=== PATIENT | male | born 1950 | race Caucasian/White ===

== ENCOUNTER 2018-05-29 09:43 | Inpatient (IN) | payer OTHER ==
[2018-05-29 10:10] VITALS: BMI 24.0
--- NOTE | 2018-05-29 10:17 | PDOC ---
History of Present Illness - General Chief Complaint: Shortness of Breath Stated Complaint: DIFF. BREATHING Time Seen by Provider: 05/29/18 09:47 History Source: Patient, EMS Exam Limitations: No Limitations - History of Present Illness Initial Comments: 05/29/18 10:03 The patient is a 67M with a PMH of anemia of unknown cause, DM, HTN, and COPD who presented to the ER with shortness of breath. The patient states that he began to feel short of breath 2 days ago and it has worsened. He states that he woke up in the middle of the night and felt acutely short of breath and called EMS. During this episode, he states that he also had retrosternal CP which radiates to his back, and is no longer present. He admits to some nausea but denies vomiting, fevers, chills, numbness, tingling, or weakness. Past History - Past Medical History Allergies/Adverse Reactions: Allergies Allergy/AdvReac Type Severity Reaction Status Date / Time No Known Allergies Allergy Verified 05/29/18 10:03 Home Medications: Ambulatory Orders Aspirin 81 mg PO DAILY 05/29/18 Atorvastatin Ca [Lipitor] 40 mg PO HS 05/29/18 Budesonide/Formeterol Fumarate [SYMBICORT 80/4.5mcg -] 2 inh PO BID 05/29/18 Cyanocobalamin (Vitamin B-12) [Vitamin B-12] 1,000 mcg PO DAILY 05/29/18 Epoetin Blue [Epogen] 20,000 unit IJ WEEKLY 05/29/18 Escitalopram Oxalate [Lexapro -] 10 mg PO HS 05/29/18 Folic Acid 1 mg PO DAILY 05/29/18 Gabapentin 100 mg PO TID 05/29/18 Guaifenesin [Mucinex] 600 mg PO BID 05/29/18 Levothyroxine [Synthroid -] 25 mcg PO DAILY 05/29/18 Linagliptin [Tradjenta] 5 mg PO DAILY 05/29/18 Metoprolol Succinate 100 mg PO DAILY 05/29/18 Multivitamins [Tab-A-Vit -] 1 tab PO DAILY 05/29/18 Polyethylene Glycol 3350 [Miralax (For Daily Use) -] 17 gm PO DAILY 05/29/18 Sennosides [Senna] 8.6 mg PO HS 09/09/18 Tramadol HCl 50 mg PO TID PRN 05/29/18 COPD: Yes Diabetes: Yes (TYPE II) HTN: Yes Psychiatric Problems: Yes (DEPRESSIVE DISORDER) Thyroid Disease: Yes (HYPO) Other medical history: HYPOCALCEMIA, SCOLIOSIS - Suicide/Smoking/Psychosocial Hx Smoking History: Current every day smoker Have you smoked in the past 12 months: Yes Number of Cigarettes Smoked Daily: 8 Information on smoking cessation initiated: Yes 'Breaking Loose' booklet given: 05/29/18 Hx Alcohol Use: No Drug/Substance Use Hx: No Substance Use Type: None Review of Systems - Review of Systems Able to Perform ROS?: Yes Comments:: 05/29/18 10:17 GENERAL/CONSTITUTIONAL: No fever or chills. No weakness. HEAD, EYES, EARS, NOSE AND THROAT: No change in vision. No ear pain or discharge. No sore throat. CARDIOVASCULAR: Positive for resolved CP. No palpitations or lightheadedness. RESPIRATORY: Positive for shortness of breath. No cough, wheezing, or hemoptysis. GASTROINTESTINAL: Positive for nausea. No vomiting, diarrhea, constipation, or abdominal pain. GENITOURINARY: No dysuria, frequency, hematuria, or change in urination. MUSCULOSKELETAL: No joint or muscle swelling or pain. No neck or back pain. SKIN: No rash or lesions. NEUROLOGIC: No headache, numbness, tingling, focal weakness, loss of consciousness, or change in strength/sensation. ENDOCRINE: No increased thirst. No abnormal weight change. HEMATOLOGIC/LYMPHATIC: Positive for anemia. No easy bleeding or history of blood clots. ALLERGIC/IMMUNOLOGIC: No hives or skin allergy. Is the patient limited Occitan proficient: No *Physical Exam - Vital Signs Last Vital Signs Temp Pulse Resp BP Pulse Ox 98.4 F 69 26 H 120/56 98 05/29/18 09:57 05/29/18 09:57 05/29/18 09:57 05/29/18 09:57 05/29/18 09:57 - Physical Exam Comments: 05/29/18 10:20 GENERAL: Well developed, well nourished. Awake and alert. No acute distress. HEENT: Normocephalic, atraumatic. Hearing grossly normal. Moist mucous membranes. PERRLA, EOMI. No conjunctival pallor. Sclera are non-icteric. NECK: Supple. Full ROM. No JVD. CARDIOVASCULAR: Regular rate and rhythm. No murmurs, rubs, or gallops. PULMONARY: No evidence of respiratory distress. RLL crackles. ABDOMINAL: Soft. Non-tender. Non-distended. No rebound or guarding. No organomegaly. Normoactive bowel sounds. GENITOURINARY: No CVA tenderness bilaterally. MUSCULOSKELETAL: Normal range of motion at all joints. No bony deformities or tenderness. EXTREMITIES: No cyanosis. No clubbing. No edema. No calf tenderness or swelling. SKIN: Warm and dry. Normal capillary refill. No rashes. No jaundice. NEUROLOGICAL: Alert, awake, appropriate. Cranial nerves 2-12 grossly intact. Normal speech. Gait is normal without ataxia. PSYCHIATRIC: Cooperative. Good eye contact. Appropriate mood and affect. Heart Score/ECG Review #1 ECG reviewed & interpreted by me at: 10:24 General ECG Interpretation: Sinus Rhythm, Normal Rate, Normal Intervals, No acute ischemic changes Compared to previous ECG there are: Previous ECG unavail 05/29/18 10:24 NSR vent rate 65 TX 214 QRS 138 QTc 481 RBBB Prolonged QT 1st degree AV block No STD or SELENE No priors ED Treatment Course - LABORATORY CBC & Chemistry Diagram: 05/29/18 10:40 05/29/18 10:40 - RADIOLOGY Radiology Studies Ordered: Category Date Time Status CHEST X-RAY PORTABLE* [RAD] Stat Radiology 05/29/18 09:51 Ordered Medical Decision Making - Medical Decision Making 05/29/18 10:27 The patient is a 67M with a PMH of anemia, HTN, DM, and COPD whopresents to the ER with complaints of SOB. The patient had an episode of CP with his SOB last night as he was laying in bed concerning for ACS vs COPD exacerbation vs PNA vs symptomatic anemia. The patient states that he normally goes to [facility] once a week for a "shot that brings up my blood cells". Pending labs. Preliminary read of CXR shows RLL PNA. Once cultures are drawn, will begin abx. Pt d/c-ed from rehab 10 days ago, so will cover for HCAP. 05/29/18 11:09 Hgb 6.9. Will transfuse 2 units and give broad spectrum abx. 05/29/18 12:35 I have endorsed the pt to Dr. Gupta. *DC/Admit/Observation/Transfer Diagnosis at time of Disposition: Pneumonia Qualifiers: Pneumonia type: due to unspecified organism Laterality: right Lung location: lower lobe of lung Qualified Code(s): J18.1 - Lobar pneumonia, unspecified organism Anemia Qualifiers: Anemia type: unspecified type Qualified Code(s): D64.9 - Anemia, unspecified - Discharge Dispostion Condition at time of disposition: Guarded Decision to Admit order: Yes - Referrals Referrals: Wendy Scott MD, MD [Primary Care Provider] - - Patient Instructions - Post Discharge Activity
[2018-05-29] MEDS ORDERED: ALBUTEROL SO4 2.5/IPRATROPIUM 0.5 INH SOL 3 ML VIAL.NEB. NEB ONE ×3 (10:32→10:35)
[2018-05-29] MEDS ORDERED: ONDANSETRON 4 MG/2 ML VIAL ONE (10:35)
--- NOTE | 2018-05-29 10:39 | PDOC ---
Attending Attestation - Resident Resident Name: Seth Farrar - ED Attending Attestation I have performed the following: I have examined & evaluated the patient, The case was reviewed & discussed with the resident, I agree w/resident's findings & plan, Exceptions are as noted - HPI HPI: 05/29/18 10:36 67yo male with SOB from the assisted living. Pt arrives wearing O2, does not wear O2 regularly, hx of COPD - Physicial Exam PE: 05/29/18 10:38 Gen: awake, mild resp distress, conversational dyspnea, pulse ox 84on RA Heart: +s1s2 reg Lungs: rhonchi at R base and end expiratory wheezing diffusely, mild resp distress and conversational dyspnea, tachypnic abd: soft, ntnd +bs ext: no c/c/e - Medical Decision Making 05/29/18 10:34 I, Dr. Emi Rene, DO, attest that this document has been prepared under my direction and personally reviewed by me in its entirety. I further attest, that it accurately reflects all work, treatment, procedures and medical decision -making performed by me. 05/29/18 10:34 a/p: 67yo male presents from [facility] for eval of SOB and cough -pt at [facility] for rehab after being in [facility] for anemia requiring multiple transfusions -hx of copd, pt with low O2 sat -concern for symptomatic anemia vs copd exacerbation vs pna vs acs -will send labs, cultures, vbg, ekg, cxr -will give nebs -will need rectal exam -will monitor and reassess - pt will most likely require admission for SOB 05/29/18 10:35 R base PNA - cultures pending will give abx 05/29/18 10:40 infiltrate R base on xray 05/29/18 11:10 pt pmd is Wendy Scott admits to Toño Scott who is covered by Dr. Gupta pt with PNA, COPD exacerbation, symptomatic anemia abx and cultures ordered nebs given will transfuse 2 units pRBC 05/29/18 13:03 resident discussed the case with Dr. Gupta who accepts pt to service Heart Score/ECG Review - ECG Intrepretation Comment:: 05/29/18 10:41 sinus at 67 w a 1st degree av block, downsloping st segment inferolateral, L axis deviation, RBBB, abnl ekg
[2018-05-29] MEDS ORDERED: PIPERACILLIN/TAZOB 4.5 GM 4.5 GM in DEXTROSE 5%-WATER 100 ML IVPB ONE (10:40)
[2018-05-29] MEDS ORDERED: VANCOMYCIN 1,000 MG in DEXTROSE 5%-WATER - 250 ML IVPB ONE (10:40)
[2018-05-29 10:52] LABS: BASO % 0.9 % (0-2.0); EOS % 0.1 % (0-4.5); HEMATOCRIT 21.1 % (35.4-49); LYMPH % 3.5 % (8-40); MCH 32.6 pg (25.7-33.7); MCHC 32.7 g/dl (32.0-35.9); MEAN CELL VOLUME 99.5 fl (80-96); MEAN PLT VOLUME 10.1 fl (7.5-11.1); MONO % 11.2 % (3.8-10.2); NEUT % 84.3 % (42.8-82.8); PLATELET COUNT 220 K/MM3 (134-434); RBC 2.12 M/mm3 (4.00-5.60); RDW 23.1 % (11.9-15.9)
[2018-05-29 10:57] LABS: VENOUS PC02 41.4 mmHg (38-52); VENOUS PH 7.34 (7.32-7.42)
[2018-05-29] MEDS ORDERED: PIPERACILLIN/TAZOB 4.5 GM 4.5 GM/100 ML BAG IVPB ONE (10:57)
[2018-05-29] MEDS ORDERED: VANCOMYCIN 1 GRAM (PRE-DOCKED) 1,000 MG/250 ML BAG IVPB ONE (10:57)
[2018-05-29 11:04] LABS: HEMOGLOBIN 6.9 GM/dL (11.7-16.9)
[2018-05-29 11:08] LABS: INR 1.08 (0.83-1.09); PROTHROMBIN TIME (PATIENT) 12.2 SEC (9.7-13.0)
[2018-05-29 11:19] LABS: ALBUMIN 2.9 g/dl (3.4-5.0); ANION GAP 11 MMOL/L (8-16); BILIRUBIN,TOTAL 0.7 mg/dL (0.2-1.0); BLOOD UREA NITROGEN 47 mg/dL (7-18); CALCIUM 8.1 mg/dL (8.5-10.1); CHLORIDE 110 mmol/L (98-107); CO2 22 mmol/L (21-32); CREATININE 1.8 mg/dL (0.7-1.3); GLUCOSE,RANDOM 149 mg/dL (74-106); POTASSIUM 4.5 mmol/L (3.5-5.1); SGOT/AST 11 U/L (15-37); SGPT/ALT 20 U/L (12-78); SODIUM 143 mmol/L (136-145); TOT PROT 6.8 g/dl (6.4-8.2)
[2018-05-29 11:22] LABS: ALK PHOS 64 U/L (45-117)
[2018-05-29] MEDS ORDERED: traMADol HCL 50 MG TABLET PO PRN (15:45)
[2018-05-29] MEDS ORDERED: GABAPENTIN 100 MG CAPSULE (FP) ONE (22:19)
[2018-05-29] MEDS ORDERED: ATORVASTATIN CA 40 MG TABLET (FP) ONE (22:19)
[2018-05-29] MEDS: guaiFENesin 600 MG TABLET.ER (FP) PO SCH (22:20)
[2018-05-29] MEDS: ATORVASTATIN CA 40 MG TABLET (FP) PO SCH (22:20)
[2018-05-29] MEDS ORDERED: PANTOPRAZOLE SODIUM 40 MG VIAL ONE (22:20)
[2018-05-29] MEDS: ESCITALOPRAM OXALATE 10 MG TABLET (FP) PO SCH (22:20)
[2018-05-29] MEDS ORDERED: ESCITALOPRAM OXALATE 10 MG TABLET (FP) ONE (22:20)
[2018-05-29] MEDS: GABAPENTIN 100 MG CAPSULE (FP) PO SCH (22:21)
[2018-05-29] MEDS: BUDESONIDE/FORMETEROL FUMARATE 80/4.5 mcg INHALER IH SCH (22:21)
[2018-05-29] MEDS: SENNOSIDES 8.6MG TABLET (FP) PO SCH (22:21)
[2018-05-29] MEDS: PANTOPRAZOLE SODIUM 40 MG VIAL IVPUSH SCH (22:21)
[2018-05-30] MEDS: GABAPENTIN 100 MG CAPSULE (FP) PO SCH ×3 (06:09→21:47)
[2018-05-30] MEDS ORDERED: LEVOTHYROXINE NA 25 MCG TABLET (FP) ONE (06:23)
[2018-05-30] MEDS ORDERED: GABAPENTIN 100 MG CAPSULE (FP) ONE (06:23)
[2018-05-30 06:35] LABS: BASO % 0.3 % (0-2.0); EOS % 0.4 % (0-4.5); HEMOGLOBIN 8.8 GM/dL (11.7-16.9); LYMPH % 4.8 % (8-40); MCH 33.2 pg (25.7-33.7); MCHC 33.9 g/dl (32.0-35.9); MEAN CELL VOLUME 98.1 fl (80-96); MEAN PLT VOLUME 8.9 fl (7.5-11.1); MONO % 13.9 % (3.8-10.2); NEUT % 80.6 % (42.8-82.8); PLATELET COUNT 269 K/MM3 (134-434); RBC 2.65 M/mm3 (4.00-5.60); RDW 20.6 % (11.9-15.9); WHITE BLOOD COUNT 11.5 K/mm3 (4.0-10.0)
[2018-05-30 06:59] LABS: ALBUMIN 2.6 g/dl (3.4-5.0); ANION GAP 7 MMOL/L (8-16); BLOOD UREA NITROGEN 49 mg/dL (7-18); CALCIUM 7.9 mg/dL (8.5-10.1); CHLORIDE 110 mmol/L (98-107); CHOLESTEROL 84 mg/dL (50-200); CO2 25 mmol/L (21-32); GLUCOSE,RANDOM 113 mg/dL (74-106); MAGNESIUM 1.9 mg/dL (1.8-2.4); POTASSIUM 4.4 mmol/L (3.5-5.1); SODIUM 142 mmol/L (136-145)
[2018-05-30] MEDS: LEVOTHYROXINE NA 25 MCG TABLET (FP) PO SCH (07:00)
[2018-05-30 07:07] LABS: ALK PHOS 61 U/L (45-117); BILIRUBIN,TOTAL 1.4 mg/dL (0.2-1.0); CREATININE 2.2 mg/dL (0.7-1.3); HDL CHOLESTEROL 39 mg/dL (40-60); SGOT/AST 13 U/L (15-37); SGPT/ALT 17 U/L (12-78); TOT PROT 6.4 g/dl (6.4-8.2); TRIGLYCERIDES 68 mg/dL (35-160)
[2018-05-30] MEDS: PANTOPRAZOLE SODIUM 40 MG VIAL IVPUSH SCH ×2 (09:10→21:47)
[2018-05-30] MEDS: guaiFENesin 600 MG TABLET.ER (FP) PO SCH ×2 (09:10→21:46)
[2018-05-30] MEDS: FOLIC ACID 1 MG TABLET (FP) PO SCH (09:11)
[2018-05-30] MEDS: POLYETHYLENE GLYCOL 3350 119 GM BTL PO SCH (09:11)
[2018-05-30] MEDS: BUDESONIDE/FORMETEROL FUMARATE 80/4.5 mcg INHALER IH SCH ×2 (09:20→21:47)
--- NOTE | 2018-05-30 10:27 | EKG ---
Test Reason : Blood Pressure : / mmHG Vent. Rate : 073 BPM Atrial Rate : 073 BPM P-R Int : 204 ms QRS Dur : 128 ms QT Int : 434 ms P-R-T Axes : 079 -72 -09 degrees QTc Int : 478 ms NORMAL SINUS RHYTHM LEFT AXIS DEVIATION RIGHT BUNDLE BRANCH BLOCK SEPTAL INFARCT , AGE UNDETERMINED T WAVE ABNORMALITY, CONSIDER LATERAL ISCHEMIA ABNORMAL ECG WHEN COMPARED WITH ECG OF 29-MAY-2018 10:16, T WAVE VARIATION Confirmed by CARLOS LOMBARDO MD ([id number]) on 05/30/2018 10:27:20 AM Referred By: Confirmed By:CARLOS LOMBARDO MD
--- NOTE | 2018-05-30 10:33 | EKG ---
Test Reason : Blood Pressure : / mmHG Vent. Rate : 067 BPM Atrial Rate : 067 BPM P-R Int : 214 ms QRS Dur : 138 ms QT Int : 456 ms P-R-T Axes : 074 -64 025 degrees QTc Int : 481 ms SINUS RHYTHM WITH 1ST DEGREE A-V BLOCK LEFT AXIS DEVIATION RIGHT BUNDLE BRANCH BLOCK ABNORMAL ECG NO PREVIOUS ECGS AVAILABLE Confirmed by CARLOS LOMBARDO MD ([id number]) on 05/30/2018 10:33:25 AM Referred By: Confirmed By:CARLOS LOMBARDO MD
[2018-05-30 11:05] LABS: ANISOCYTOSIS 1+; MACROCYTOSIS 1+
--- NOTE | 2018-05-30 11:07 | CONSULT ---
Consultation: REQUESTING PROVIDER: CONSULT REQUEST: We have been asked to medically evaluate this patient for ( anemia-HEME/ONC CONSULT). HISTORY OF PRESENT ILLNESS: Patient is a 67 year old male was sent from [facility] to the ED with the chief complaint of shortness of breath x 2 days. As per the patient , he started having loss of appetite since 4 days and has been feeling weak/ tired. Then had SOB on exertion associated with production of yellowish sputum but no chest pain, palpitation. Patient reports he had nausea associated with one episode of vomiting which prompted him to come to the ED for further evaluation. Has h/o constipation, on Miralax, last bowel movement was 4 days ago. Bladder habit normal. Sleep normal. Patient used to live independently Patient reports he was at [facility] around 3 months ago for SOB, was discharged to a rehab then discharged to assisted living 10 days ago. At [facility] he had symptomatic anemia for his he received blood transfusion. Has never had EGD or Colonoscopy. 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 REVIEW OF SYSTEMS: CONSTITUTIONAL: Absent: fever, chills, diaphoresis, generalized weakness, malaise, loss of appetite, weight change HEENT: Absent: rhinorrhea, nasal congestion, throat pain, throat swelling, difficulty swallowing, mouth swelling, ear pain, eye pain, visual changes CARDIOVASCULAR: Absent: chest pain, syncope, palpitations, irregular heart rate, lightheadedness , peripheral edema RESPIRATORY: Present: cough, shortness of breath, Absent: dyspnea with exertion, orthopnea, wheezing, stridor, hemoptysis GASTROINTESTINAL: Absent: abdominal pain, abdominal distension, nausea, vomiting, diarrhea, constipation, melena, hematochezia GENITOURINARY: Absent: dysuria, frequency, urgency, hesitancy, hematuria, flank pain, genital pain MUSCULOSKELETAL: Absent: myalgia, arthralgia, joint swelling, back pain, neck pain SKIN: Absent: rash, itching, pallor HEMATOLOGIC/IMMUNOLOGIC: Absent: easy bleeding, easy bruising, lymphadenopathy, frequent infections ENDOCRINE: Absent: unexplained weight gain, unexplained weight loss, heat intolerance, cold intolerance NEUROLOGIC: Absent: headache, focal weakness or paresthesias, dizziness, unsteady gait, seizure, mental status changes, bladder or bowel incontinence PSYCHIATRIC: Absent: anxiety, depression, suicidal or homicidal ideation, hallucinations. PHYSICAL EXAMINATION Vital Signs - 24 hr 05/29/18 05/29/18 05/29/18 13:15 13:59 15:11 Temperature 98.6 F Pulse Rate [ 76 74 Apical] Respiratory 22 22 Rate Blood Pressure 116/61 128/63 [Right Arm] O2 Sat by Pulse 96 98 97 Oximetry (%) 05/29/18 05/29/18 05/29/18 15:25 16:15 18:15 Temperature 98.7 F 98.8 F Pulse Rate [ 73 74 71 Apical] Respiratory 22 24 24 Rate Blood Pressure 133/58 115/59 117/48 [Right Arm] O2 Sat by Pulse 98 98 98 Oximetry (%) 05/29/18 05/29/18 05/29/18 18:45 19:45 20:00 Temperature 99.2 F 99.0 F Pulse Rate [ 69 70 67 Apical] Respiratory 24 24 24 Rate Blood Pressure 105/46 110/59 119/80 [Right Arm] O2 Sat by Pulse 97 98 97 Oximetry (%) 05/30/18 05/30/18 05/30/18 06:00 06:28 09:10 Temperature 98.5 F 98.4 F Pulse Rate [ 65 66 71 Apical] Respiratory 18 19 Rate Blood Pressure 109/56 109/56 138/66 [Right Arm] O2 Sat by Pulse 100 98 Oximetry (%) GENERAL: Elderly male, lying comfortably in bed, Awake, alert, and fully oriented, in no acute distress. HEAD: Normal with no signs of trauma. EYES: EOM intact, pallor +, icterus. EARS, NOSE, THROAT: Ears normal. Moist mucous membranes. NECK: Supple. LUNGS: B/L coarse breath sounds. No wheezes. No accessory muscle use. HEART: Regular rate and rhythm, normal S1 and S2 with soft systolic murmur. ABDOMEN: Soft, nontender, not distended, normoactive bowel sounds, no guarding, no rebound, no masses. No hepatomegaly or splenomegaly. MUSCULOSKELETAL: Normal range of motion at all joints. No bony deformities or tenderness. No CVA tenderness. UPPER EXTREMITIES/RIGHT lower ext: 2+ pulses, warm, well-perfused. No cyanosis. No clubbing. Cap refill <2 seconds. No peripheral edema. LEFT LOWER EXTREMITY:Below knee amputation, stump looks dry and clean. NEUROLOGICAL: No facial droop. Normal speech. Gait not observed. PSYCHIATRIC: Cooperative. Good eye contact. Appropriate mood and affect. SKIN: Warm, dry, normal turgor, no rashes or lesions noted. Laboratory Results - last 24 hr 05/29/18 05/29/18 05/29/18 10:40 10:40 10:40 WBC RBC Hgb Hct MCV MCH MCHC RDW Plt Count MPV Absolute Neuts (auto) Neutrophils % Lymphocytes % Monocytes % Eosinophils % Basophils % Nucleated RBC % Anisocytosis Macrocytosis PT with INR 12.20 INR 1.08 Sodium 143 Potassium 4.5 Chloride 110 H Carbon Dioxide 22 Anion Gap 11 BUN 47 H Creatinine 1.8 H Creat Clearance w eGFR 37.82 Random Glucose 149 H Hemoglobin A1c % Calcium 8.1 L Magnesium Total Bilirubin 0.7 AST 11 L ALT 20 Alkaline Phosphatase 64 Creatine Kinase 34 L Troponin I 0.07 H B-Natriuretic Peptide Total Protein 6.8 Albumin 2.9 L Triglycerides Cholesterol Total LDL Cholesterol HDL Cholesterol Stool Occult Blood Blood Type A POSITIVE Antibody Screen Negative Crossmatch See Detail 05/29/18 05/29/18 05/29/18 10:40 12:25 12:35 WBC RBC Hgb Hct MCV MCH MCHC RDW Plt Count MPV Absolute Neuts (auto) Neutrophils % Lymphocytes % Monocytes % Eosinophils % Basophils % Nucleated RBC % Anisocytosis Macrocytosis PT with INR INR Sodium Potassium Chloride Carbon Dioxide Anion Gap BUN Creatinine Creat Clearance w eGFR Random Glucose Hemoglobin A1c % Calcium Magnesium Total Bilirubin AST ALT Alkaline Phosphatase Creatine Kinase Troponin I B-Natriuretic Peptide 7838.47 H Total Protein Albumin Triglycerides Cholesterol Total LDL Cholesterol HDL Cholesterol Stool Occult Blood Negative Blood Type A POSITIVE Antibody Screen Crossmatch 05/29/18 05/30/18 05/30/18 16:28 05:55 05:55 WBC 11.5 H RBC 2.65 L Hgb 8.8 L Hct 26.0 L D MCV 98.1 H MCH 33.2 MCHC 33.9 RDW 20.6 H Plt Count 269 D MPV 8.9 D Absolute Neuts (auto) 9.3 H Neutrophils % 80.6 Lymphocytes % 4.8 L D Monocytes % 13.9 H Eosinophils % 0.4 D Basophils % 0.3 Nucleated RBC % 0 Anisocytosis 1+ Macrocytosis 1+ PT with INR INR Sodium 142 Potassium 4.4 Chloride 110 H Carbon Dioxide 25 Anion Gap 7 L BUN 49 H Creatinine 2.2 H Creat Clearance w eGFR 30.00 Random Glucose 113 H D Hemoglobin A1c % Calcium 7.9 L Magnesium 1.9 Total Bilirubin 1.4 H AST 13 L ALT 17 Alkaline Phosphatase 61 Creatine Kinase 38 L 30 L Troponin I 0.15 H D 0.17 H B-Natriuretic Peptide Total Protein 6.4 Albumin 2.6 L Triglycerides 68 Cholesterol 84 Total LDL Cholesterol 37 HDL Cholesterol 39 L Stool Occult Blood Blood Type Antibody Screen Crossmatch 05/30/18 05:55 WBC RBC Hgb Hct MCV MCH MCHC RDW Plt Count MPV Absolute Neuts (auto) Neutrophils % Lymphocytes % Monocytes % Eosinophils % Basophils % Nucleated RBC % Anisocytosis Macrocytosis PT with INR INR Sodium Potassium Chloride Carbon Dioxide Anion Gap BUN Creatinine Creat Clearance w eGFR Random Glucose Hemoglobin A1c % 6.0 Calcium Magnesium Total Bilirubin AST ALT Alkaline Phosphatase Creatine Kinase Troponin I B-Natriuretic Peptide Total Protein Albumin Triglycerides Cholesterol Total LDL Cholesterol HDL Cholesterol Stool Occult Blood Blood Type Antibody Screen Crossmatch Active Medications Generic Name Dose Route Start Last Admin Trade Name Rufusq PRN Reason Stop Dose Admin Atorvastatin Calcium 40 mg 05/29/18 22:00 05/29/18 22:20 Lipitor - PO 40 mg HS AURELIO Administration Budesonide/Formoterol Fumarate 2 puff 05/29/18 22:00 05/30/18 09:20 Symbicort 80/4.5mcg - IH 2 puff BID AURELIO Administration Escitalopram Oxalate 10 mg 05/29/18 22:00 05/29/18 22:20 Lexapro - PO 10 mg HS AURELIO Administration Folic Acid 1 mg 05/30/18 10:00 05/30/18 09:11 Folic Acid - PO 1 mg DAILY AURELIO Administration Gabapentin 100 mg 05/29/18 22:00 05/30/18 06:09 Neurontin - PO 100 mg TID AURELIO Administration Guaifenesin 600 mg 05/29/18 22:00 05/30/18 09:10 Mucinex - PO 600 mg BID AURELIO Administration Levothyroxine Sodium 25 mcg 05/30/18 07:00 05/30/18 07:00 Synthroid - PO 25 mcg DAILY@0700 AURELIO Administration Metoprolol Succinate 100 mg 05/30/18 10:00 05/30/18 09:11 Toprol Xl - PO 100 mg DAILY AURELIO Administration Pantoprazole Sodium 40 mg 05/29/18 22:00 05/30/18 09:10 Protonix Iv IVPUSH 40 mg BID AURELIO Administration Polyethylene Glycol 17 gm 05/30/18 10:00 05/30/18 09:11 Miralax (For Daily Use) - PO 17 grams DAILY AURELIO Administration Senna 1 tab 05/29/18 22:00 05/29/18 22:21 Senna - PO 1 tab HS AURELIO Administration Tramadol HCl 50 mg 05/29/18 15:45 Ultram - PO TID PRN PAIN Patient is a 67 year old male with past medical history of Hypertension, Hyperlipidemia, DM-uncontrolled, 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 ASSESSMENT Symptomatic anemia Right base infiltrate-monitor of abx as per pulm. CKD (baseline unknown) Hypertension-controlled HLD DM Amputation of BKA due to gangrene CAD COPD on home oxy (non compliant) PLAN: Symptomatic anemia H/H 6.9/21.1---> s/p 2 PRBC 8.8/26 Iron studies will not be accurate given the recent blood transfusion. Will need EGD/Colonoscopy to find out the GI source, as per GI team. Has never had Colonoscopy or EGD in the past. Will order CBC in AM. Transfuse if < 7 gm/dl or if actively bleeding Flow cytometry, FISH, reticulocyte count, B12, folate to be sent TSH in normal range. Rest as per the primary team. Plan of care explained to the patient. He verbalized understanding. Case discussed with Dr. Chandra. Dispo: We will continue to follow the patient. Thank you for this consultative opportunity. Visit type - Emergency Visit Emergency Visit: Yes ED Registration Date: 05/29/18 Care time: The patient presented to the Emergency Department on the above date and was hospitalized for further evaluation of their emergent condition. - New Patient This patient is new to me today: Yes Date on this admission: 05/30/18 - Critical Care Critical Care patient: No
--- NOTE | 2018-05-30 11:58 | HP ---
Admitting History and Physical - Primary Care Physician PCP: Cliff Scott MD - Admission Chief Complaint: sob History of Present Illness: The patient is a 67M with a PMH of anemia of unknown cause, DM, HTN, and COPD who presented to the ER with shortness of breath. The patient states that he began to feel short of breath 2 days ago and it has worsened. He states that he woke up in the middle of the night and felt acutely short of breath and called EMS. During this episode, he states that he also had retrosternal CP which radiates to his back, and is no longer present. He admits to some nausea but denies vomiting, fevers, chills, numbness, tingling, or weakness. patient is here from [facility] facility in ER got; h/h 6.06/10 got 3 units no h/h improved got vancomcycin and zosyn History Source: Patient, Medical Record - Smoking History Smoking history: Current every day smoker Have you smoked in the past 12 months: Yes Aproximately how many cigarettes per day: 8 - Alcohol/Substance Use Hx Alcohol Use: No Home Medications - Allergies Allergies/Adverse Reactions: Allergies Allergy/AdvReac Type Severity Reaction Status Date / Time No Known Allergies Allergy Verified 05/29/18 10:03 - Home Medications Home Medications: Ambulatory Orders Aspirin 81 mg PO DAILY 05/29/18 Atorvastatin Ca [Lipitor] 40 mg PO HS 05/29/18 Budesonide/Formeterol Fumarate [SYMBICORT 80/4.5mcg -] 2 inh PO BID 05/29/18 Cyanocobalamin (Vitamin B-12) [Vitamin B-12] 1,000 mcg PO DAILY 05/29/18 Epoetin Blue [Epogen] 20,000 unit IJ WEEKLY 05/29/18 Escitalopram Oxalate [Lexapro -] 10 mg PO HS 05/29/18 Folic Acid 1 mg PO DAILY 05/29/18 Gabapentin 100 mg PO TID 05/29/18 Guaifenesin [Mucinex] 600 mg PO BID 05/29/18 Levothyroxine [Synthroid -] 25 mcg PO DAILY 05/29/18 Linagliptin [Tradjenta] 5 mg PO DAILY 05/29/18 Metoprolol Succinate 100 mg PO DAILY 05/29/18 Multivitamins [Tab-A-Vit -] 1 tab PO DAILY 05/29/18 Polyethylene Glycol 3350 [Miralax (For Daily Use) -] 17 gm PO DAILY 05/29/18 Sennosides [Senna] 8.6 mg PO HS 05/29/18 Tramadol HCl 50 mg PO TID PRN 05/29/18 Review of Systems - Review of Systems Respiratory: reports: Cough (with phelgm), Other (sob has improved) Physical Examination Vital Signs: Vital Signs Temperature 98.4 F 05/30/18 06:28 Pulse Rate 71 05/30/18 09:10 Respiratory Rate 19 05/30/18 06:28 Blood Pressure 138/66 05/30/18 09:10 O2 Sat by Pulse Oximetry (%) 98 05/30/18 06:28 today patient complaining of productive cough says his shortness of breath has improved since admission Constitutional: Yes: Calm Cardiovascular: Yes: Regular Rate and Rhythm, S1, S2 Respiratory: Yes: CTA Bilaterally, Other (surg nurse wheezing) Gastrointestinal: Yes: Normal Bowel Sounds, Soft Edema: No Neurological: Yes: Alert, Oriented Labs: CBC, BMP 05/30/18 05:55 05/30/18 05:55 Imaging - Results Chest X-ray: Report Reviewed Problem List - Problems (1) Anemia Assessment/Plan: s/p prbc heme and gi eval monitor h/h iron panel pending occult blood negative ppi bid NPO till seen by GI Code(s): D64.9 - ANEMIA, UNSPECIFIED Qualifiers: Anemia type: unspecified type Qualified Code(s): D64.9 - Anemia, unspecified (2) Pneumonia Assessment/Plan: vancomcyin and zosyn Code(s): J18.9 - PNEUMONIA, UNSPECIFIED ORGANISM Qualifiers: Pneumonia type: due to unspecified organism Laterality: right Lung location: lower lobe of lung Qualified Code(s): J18.1 - Lobar pneumonia, unspecified organism (3) Renal insufficiency Assessment/Plan: renal consult renal and bladder sono UA Code(s): N28.9 - DISORDER OF KIDNEY AND URETER, UNSPECIFIED (4) Troponin level elevated Assessment/Plan: will monitor trend maybe secondary to demand ischemia in setting of anemia will check echo jenny at [facility] abnormality and ejection fraction, cardiology consult as well betablocker continue t wave abnormality noted on ekg will hold on aspirin given anemia- need to find source Code(s): R74.8 - ABNORMAL LEVELS OF OTHER SERUM ENZYMES (5) Hypothyroid Assessment/Plan: TSH and free t4 noted on synthroid Code(s): E03.9 - HYPOTHYROIDISM, UNSPECIFIED (6) COPD (chronic obstructive pulmonary disease) Assessment/Plan: bronchodilators oxygen via nasal canula pulm consult Code(s): J44.9 - CHRONIC OBSTRUCTIVE PULMONARY DISEASE, UNSPECIFIED
--- NOTE | 2018-05-30 12:19 | PN ---
Progress Note (short form) - Note Progress Note: ID Consult dictated Dyspnea- multifactorial (symptomatic anemia, COPD, possible RLL pneumonia, possible ACS) Pending c/s empiric coverage HCAP with zosyn, adjusted for azotemia)
--- NOTE | 2018-05-30 12:54 | CONSULT ---
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 He was found to be anemic. I was called to evaluate him as he was found to have elevated creatinine. He denies dysuria or hematuria. He does have history of CKD but does not know his baseline lining feller. He says that he had chest pain in the past and did not get a cardiac cath because of his renal function. He has not seen a sewage disposal engineer in about a year and does not remember which sewage disposal engineer he saw. He denies nsaid use. - History Source History Provided By: Patient - Past Medical History Cardio/Vascular: Yes: HTN Pulmonary: Yes: COPD Heme/Onc: Yes: Anemia Endocrine: Yes: Diabetes Mellitus, Hypothyroidism - Alcohol/Substance Use Hx Alcohol Use: No - Smoking History Smoking history: Current every day smoker Have you smoked in the past 12 months: Yes Aproximately how many cigarettes per day: 8 Home Medications - Allergies Allergies/Adverse Reactions: Allergies Allergy/AdvReac Type Severity Reaction Status Date / Time No Known Allergies Allergy Verified 05/29/18 10:03 - Home Medications Home Medications: Ambulatory Orders Aspirin 81 mg PO DAILY 05/29/18 Atorvastatin Ca [Lipitor] 40 mg PO HS 05/29/18 Budesonide/Formeterol Fumarate [SYMBICORT 80/4.5mcg -] 2 inh PO BID 05/29/18 Cyanocobalamin (Vitamin B-12) [Vitamin B-12] 1,000 mcg PO DAILY 05/29/18 Epoetin Blue [Epogen] 20,000 unit IJ WEEKLY 05/29/18 Escitalopram Oxalate [Lexapro -] 10 mg PO HS 05/29/18 Folic Acid 1 mg PO DAILY 05/29/18 Gabapentin 100 mg PO TID 05/29/18 Guaifenesin [Mucinex] 600 mg PO BID 05/29/18 Levothyroxine [Synthroid -] 25 mcg PO DAILY 05/29/18 Linagliptin [Tradjenta] 5 mg PO DAILY 05/29/18 Metoprolol Succinate 100 mg PO DAILY 05/29/18 Multivitamins [Tab-A-Vit -] 1 tab PO DAILY 05/29/18 Polyethylene Glycol 3350 [Miralax (For Daily Use) -] 17 gm PO DAILY 05/29/18 Sennosides [Senna] 8.6 mg PO HS 05/29/18 Tramadol HCl 50 mg PO TID PRN 05/29/18 Family Disease History - Family Disease History Family History: Denies Review of Systems - Review of Systems Constitutional: reports: Malaise Eyes: reports: No Symptoms HENT: reports: No Symptoms Neck: reports: No Symptoms Cardiovascular: reports: Shortness of Breath Respiratory: reports: SOB, SOB on Exertion Gastrointestinal: reports: No Symptoms Genitourinary: reports: No Symptoms Integumentary: reports: No Symptoms Neurological: reports: No Symptoms Endocrine: reports: No Symptoms Hematology/Lymphatic: reports: No Symptoms Psychiatric: reports: No Symptoms Physical Exam Vital Signs: Vital Signs Temperature 98.4 F 05/30/18 06:28 Pulse Rate 71 05/30/18 09:10 Respiratory Rate 19 05/30/18 06:28 Blood Pressure 138/66 05/30/18 09:10 O2 Sat by Pulse Oximetry (%) 98 05/30/18 06:28 Constitutional: Yes: Calm Eyes: Yes: Conjunctiva Clear HENT: Yes: Atraumatic Neck: Yes: Supple Cardiovascular: Yes: S1, S2 Respiratory: Yes: CTA Bilaterally Gastrointestinal: Yes: Normal Bowel Sounds, Soft Renal/: Yes: WNL Musculoskeletal: Yes: Other (foot amputation) Edema: No Neurological: Yes: Oriented Psychiatric: Yes: Oriented Labs: CBC, BMP 05/30/18 05:55 05/30/18 05:55 Laboratory Tests 05/29/18 05/29/18 05/29/18 10:40 10:40 12:35 WBC Hgb 6.9 L* Plt Count Sodium Potassium Creatinine 1.8 H Stool Occult Blood Negative 05/30/18 05/30/18 05:55 05:55 WBC 11.5 H Hgb 8.8 L Plt Count 269 D Sodium 142 Potassium 4.4 Creatinine 2.2 H Stool Occult Blood Imaging - Results Chest X-ray: Report Reviewed Problem List - Problems (1) Anemia Code(s): D64.9 - ANEMIA, UNSPECIFIED Qualifiers: Anemia type: unspecified type Qualified Code(s): D64.9 - Anemia, unspecified (2) COPD (chronic obstructive pulmonary disease) Code(s): J44.9 - CHRONIC OBSTRUCTIVE PULMONARY DISEASE, UNSPECIFIED (3) Renal insufficiency Code(s): N28.9 - DISORDER OF KIDNEY AND URETER, UNSPECIFIED Assessment/Plan Current Medications Generic Name Dose Route Start Last Admin Trade Name Freq PRN Reason Stop Dose Admin Atorvastatin Calcium 40 mg 05/29/18 22:00 05/29/18 22:20 Lipitor - PO 40 mg HS AURELIO Administration Budesonide/Formoterol Fumarate 2 puff 05/29/18 22:00 05/30/18 09:20 Symbicort 80/4.5mcg - IH 2 puff BID AURELIO Administration Escitalopram Oxalate 10 mg 05/29/18 22:00 05/29/18 22:20 Lexapro - PO 10 mg HS AURELIO Administration Folic Acid 1 mg 05/30/18 10:00 05/30/18 09:11 Folic Acid - PO 1 mg DAILY AURELIO Administration Gabapentin 100 mg 05/29/18 22:00 05/30/18 14:14 Neurontin - PO 100 mg TID AURELIO Administration Guaifenesin 600 mg 05/29/18 22:00 05/30/18 09:10 Mucinex - PO 600 mg BID AURELIO Administration Piperacillin Sod/Tazobactam 50 mls @ 100 mls/hr 05/30/18 12:45 05/30/18 14:14 Sod 2.25 gm/ Dextrose IVPB 100 mls/hr Q8H-IV UARELIO Administration Protocol Levothyroxine Sodium 25 mcg 05/30/18 07:00 05/30/18 07:00 Synthroid - PO 25 mcg DAILY@0700 AURELIO Administration Metoprolol Succinate 100 mg 05/30/18 10:00 05/30/18 09:11 Toprol Xl - PO 100 mg DAILY AURELIO Administration Pantoprazole Sodium 40 mg 05/29/18 22:00 05/30/18 09:10 Protonix Iv IVPUSH 40 mg BID AURELIO Administration Polyethylene Glycol 17 gm 05/30/18 10:00 05/30/18 09:11 Miralax (For Daily Use) - PO 17 grams DAILY AURELIO Administration Senna 1 tab 05/29/18 22:00 05/29/18 22:21 Senna - PO 1 tab HS AURELIO Administration Tramadol HCl 50 mg 09/09/18 15:45 Ultram - PO TID PRN PAIN Impression 1. CKD 2. anemia 3. dyspnea 4. HTN 5. DM 6. hypothyroidism 7. HLD 8. copd Plan - monitor renal function - avoid nephrotoxins - obtain output labs to compare baseline lining feller - check UA - dose meds to gfr of 30 - anemia workup - discussed with attending Dr Haley
--- NOTE | 2018-05-30 13:22 | CON.GI ---
Consult Consult Specialty:: GI Reason for Consultation:: anemia - History of Present Illness History of Present Illness: Chart reviewed. Per initial intake in ED: The patient is a 67M with a PMH of anemia of unknown cause, DM, HTN, and COPD who presented to the ER with shortness of breath. The patient states that he began to feel short of breath 2 days ago and it has worsened. He states that he woke up in the middle of the night and felt acutely short of breath and called EMS. During this episode, he states that he also had retrosternal CP which radiates to his back, and is no longer present. He admits to some nausea but denies vomiting, fevers, chills, numbness, tingling, or weakness. Patient is here from [facility] facility. On admission was noted to have macrocytic, normochromic anemia (HGB 6.9 g/dl), normal PLT, and mild leukocytosis, normal coags. S/P 2 u PRBC with expected correction(HGB 8.8 g/dl) Takes ASA and epogen. Per patient, he was diagnosed with anemia 4 or more months ago and was started on neupogen. He reports no history of gastric ulcers, esophagitis, chronic heartburn, dyspepsia, jaundice, melena, hematochezia, hematemeis, acute, significant weight loss, or changes in stool caliper. He never had EGD, or colonoscopy. - History Source History Provided By: Patient, Medical Record - Alcohol/Substance Use Hx Alcohol Use: No - Smoking History Smoking history: Current every day smoker Have you smoked in the past 12 months: Yes Aproximately how many cigarettes per day: 8 Home Medications - Allergies Allergies/Adverse Reactions: Allergies Allergy/AdvReac Type Severity Reaction Status Date / Time No Known Allergies Allergy Verified 05/29/18 10:03 - Home Medications Home Medications: Ambulatory Orders Aspirin 81 mg PO DAILY 05/29/18 Atorvastatin Ca [Lipitor] 40 mg PO HS 05/29/18 Budesonide/Formeterol Fumarate [SYMBICORT 80/4.5mcg -] 2 inh PO BID 05/29/18 Cyanocobalamin (Vitamin B-12) [Vitamin B-12] 1,000 mcg PO DAILY 05/29/18 Epoetin Blue [Epogen] 20,000 unit IJ WEEKLY 05/29/18 Escitalopram Oxalate [Lexapro -] 10 mg PO HS 05/29/18 Folic Acid 1 mg PO DAILY 05/29/18 Gabapentin 100 mg PO TID 05/29/18 Guaifenesin [Mucinex] 600 mg PO BID 05/29/18 Levothyroxine [Synthroid -] 25 mcg PO DAILY 05/29/18 Linagliptin [Tradjenta] 5 mg PO DAILY 05/29/18 Metoprolol Succinate 100 mg PO DAILY 05/29/18 Multivitamins [Tab-A-Vit -] 1 tab PO DAILY 05/29/18 Polyethylene Glycol 3350 [Miralax (For Daily Use) -] 17 gm PO DAILY 05/29/18 Sennosides [Senna] 8.6 mg PO HS 05/29/18 Tramadol HCl 50 mg PO TID PRN 05/29/18 Family Disease History - Family Disease History Family History: Unremarkable Review of Systems Findings/Remarks: as per HPI, ED, H&P Physical Exam-GI Vital Signs: Vital Signs Temperature 98.4 F 05/30/18 06:28 Pulse Rate 71 05/30/18 09:10 Respiratory Rate 19 05/30/18 06:28 Blood Pressure 138/66 05/30/18 09:10 O2 Sat by Pulse Oximetry (%) 98 05/30/18 06:28 Constitutional: Yes: Well Nourished, No Distress, Calm Eyes: Yes: Conjunctiva Clear HENT: Yes: Atraumatic, Other (missing teeth) Neck: Yes: Supple Cardiovascular: Yes: Regular Rate and Rhythm Respiratory: Yes: Regular Gastrointestinal Inspection: No: Ascites, Distention ...Auscultate: Yes: Normoactive Bowel Sounds ...Palpate: Yes: Tenderness. No: Firm/Rigid, Mass, Soft, Tenderness, Rebound Neurological: Yes: Alert Labs: CBC, BMP 05/30/18 05:55 05/30/18 05:55 INR, PTT INR 1.08 (0.83-1.09) 05/29/18 10:40 Laboratory Last Values WBC 11.5 K/mm3 (4.0-10.0) H 05/30/18 05:55 RBC 2.65 M/mm3 (4.00-5.60) L 05/30/18 05:55 Hgb 8.8 GM/dL (11.7-16.9) L 05/30/18 05:55 Hct 26.0 % (35.4-49) L D 05/30/18 05:55 MCV 98.1 fl (80-96) H 05/30/18 05:55 MCH 33.2 pg (25.7-33.7) 05/30/18 05:55 MCHC 33.9 g/dl (32.0-35.9) 05/30/18 05:55 RDW 20.6 % (11.9-15.9) H 05/30/18 05:55 Plt Count 269 K/MM3 (134-434) D 05/30/18 05:55 MPV 8.9 fl (7.5-11.1) D 05/30/18 05:55 Absolute Neuts (auto) 9.3 K/mm3 (1.5-8.0) H 05/30/18 05:55 Neutrophils % 80.6 % (42.8-82.8) 05/30/18 05:55 Lymphocytes % 4.8 % (8-40) L D 05/30/18 05:55 Monocytes % 13.9 % (3.8-10.2) H 05/30/18 05:55 Eosinophils % 0.4 % (0-4.5) D 05/30/18 05:55 Basophils % 0.3 % (0-2.0) 05/30/18 05:55 Nucleated RBC % 0 % (0-0) 05/30/18 05:55 Anisocytosis 1+ 05/30/18 05:55 Macrocytosis 1+ 05/30/18 05:55 PT with INR 12.20 SEC (9.7-13.0) 05/29/18 10:40 INR 1.08 (0.83-1.09) 05/29/18 10:40 VBG pH 7.34 (7.32-7.42) 05/29/18 10:40 POC VBG pCO2 41.4 mmHg (38-52) 05/29/18 10:40 POC VBG pO2 190.0 mmHg (28-48) H* 05/29/18 10:40 Mixed VBG HCO3 21.7 meq/L (19-25) 05/29/18 10:40 Sodium 142 mmol/L (136-145) 05/30/18 05:55 Potassium 4.4 mmol/L (3.5-5.1) 05/30/18 05:55 Chloride 110 mmol/L (98-107) H 05/30/18 05:55 Carbon Dioxide 25 mmol/L (21-32) 05/30/18 05:55 Anion Gap 7 MMOL/L (8-16) L 05/30/18 05:55 BUN 49 mg/dL (7-18) H 05/30/18 05:55 Creatinine 2.2 mg/dL (0.7-1.3) H 05/30/18 05:55 Creat Clearance w eGFR 30.00 (>60) 05/30/18 05:55 Random Glucose 113 mg/dL (74-106) H D 05/30/18 05:55 Hemoglobin A1c % 6.0 % (4.8-6.0) 05/30/18 05:55 Calcium 7.9 mg/dL (8.5-10.1) L 05/30/18 05:55 Phosphorus 3.0 mg/dL (2.5-4.9) 05/30/18 10:45 Magnesium 1.9 mg/dL (1.8-2.4) 05/30/18 05:55 Total Bilirubin 1.4 mg/dL (0.2-1.0) H 05/30/18 05:55 AST 13 U/L (15-37) L 05/30/18 05:55 ALT 17 U/L (12-78) 05/30/18 05:55 Alkaline Phosphatase 61 U/L (45-117) 05/30/18 05:55 Creatine Kinase 30 IU/L (39-308) L 05/30/18 05:55 Troponin I 0.15 ng/ml (0.00-0.05) H 05/30/18 10:45 B-Natriuretic Peptide 7838.47 pg/ml (5-125) H 05/29/18 10:40 Total Protein 6.4 g/dl (6.4-8.2) 05/30/18 05:55 Albumin 2.6 g/dl (3.4-5.0) L 05/30/18 05:55 Triglycerides 68 mg/dL (35-160) 05/30/18 05:55 Cholesterol 84 mg/dL (50-200) 05/30/18 05:55 Total LDL Cholesterol 37 mg/dL (5-100) 05/30/18 05:55 HDL Cholesterol 39 mg/dL (40-60) L 05/30/18 05:55 TSH 1.77 uIU/ml (0.358-3.74) 05/30/18 10:45 Free T4 1.00 ng/dl (0.76-1.16) 05/30/18 10:45 Stool Occult Blood Negative (NEGATIVE) 05/29/18 12:35 Blood Type A POSITIVE 05/29/18 12:25 Antibody Screen Negative 05/29/18 10:40 Crossmatch See Detail 05/29/18 10:40 Problem List - Problems (1) Macrocytic anemia Code(s): D53.9 - NUTRITIONAL ANEMIA, UNSPECIFIED Assessment/Plan A 67M with severe, chronic macrocytic, normchromic anemia, renal insufficiency and no overt stigmata of GI bleeding per history. The Pt reports no GI work up to date. EGD and colonoscopy on this admission, if cleared by cardiology and pulmonary services, were discussed with the patient. Stool for occult blood. B12, Folate, Iron profile. Daily CBC, CMP
--- NOTE | 2018-05-30 13:26 | CONS ---
DATE OF CONSULTATION: DATE OF DICTATION: 05/30/2018 The patient is a 67-year-old male who is evaluated for possible pneumonia. He was admitted from his assisted-living facility on May 29, 2018, with a 2-day history of worsening shortness of breath. He reports developing shortness of breath at rest associated with cough productive of yellowish sputum and episode of retrosternal chest pain. He was admitted to the hospital, where a chest x-ray shows possible right lower lobe infiltrate. He was found to be markedly anemic with a hemoglobin of 6.9. He is presently undergoing evaluation for possible acute coronary syndrome. The patient reports a long history of chronic anemia, for which he is followed at [facility]. He reports getting weekly injections with Epogen. He was recently at a rehab facility, where he reports he was not smoking; however, since being discharged to the assisted-living complex, he has resumed his smoking habit. He denies any ill contacts. No recent travel. He reports receiving influenza and pneumococcal vaccines last year. Past medical history positive for chronic anemia of unclear etiology, followed at [facility]; diabetes mellitus; hypertension; COPD. No known allergies. MEDICATIONS: Aspirin, Lipitor, Symbicort, Epogen, Lexapro, Neurontin, Synthroid, Trajenta, metoprolol, tramadol. SOCIAL HISTORY: Presently living in an assisted-living complex. Positive active tobacco use. Denies history of alcohol abuse or illicit drug use. Recent hospitalization at [facility]. SYSTEMS REVIEW: Neurologic: No loss of consciousness, seizure activity, or focal weakness. Cardiac: As per HPI. Respiratory: As per HPI. Gastrointestinal: Negative vomiting or diarrhea. Genitourinary: Negative for urinary tract infection. LABORATORY DATA: White count on admission 12.0, neutrophils 84, lymphocytes 3, monocytes 11, hematocrit 26.0, platelet count 269. BUN 49, creatinine 2.2. Blood cultures pending. Chest x-ray shows increased markings at the right base. PHYSICAL EXAMINATION: General: He is awake and alert, he is not acutely toxic appearing. He appears comfortable on room air. Vital Signs: Temperature 98.4. Blood pressure 138/66. Pulse 71, regular. Respirations 22 per minute. Eyes: Sclerae anicteric. Heart Sounds: S1, S2. No murmur. Lungs: Rales, right greater than left base. No rhonchi or wheezing. Abdomen: Soft. No tenderness elicited. No mass, rebound or rigidity. Extremities: Negative for right pedal edema. He is status post left [id number] amputation. There is a small scab present at the distal stump site, which corresponds to a previous blister. No erythema or drainage is noted. IMPRESSION: 1. Dyspnea, multifactorial. 2. Possible right lower lobe pneumonia. 3. Exacerbation of chronic obstructive pulmonary disease. 4. Possible acute coronary syndrome. 5. Shortness of breath likely multifactorial (symptomatic anemia with superimposed heart and lung issues). Will obtain sputum culture, urine Legionella and pneumococcal antigens. Empirically cover for possible healthcare-acquired pneumonia, in light of recent hospitalization and custodial stay, with Zosyn adjusted for azotemia. Patient has been transfused with packed red blood cells. Cardiology evaluation. Will follow. Thank you for the kind referral. TOY CABALLERO M.D. [id number]
[2018-05-30] MEDS: PIPERACILLIN/TAZOB 2.25 GM 2.25 GM in DEXTROSE 5%-WATER - 50 ML IVPB SCH ×2 (14:14→21:45)
--- NOTE | 2018-05-30 15:27 | ECHO ---
Name: MARK JOHNSTON Exam:Adult Echocardiogram Study Date: 05/30/2018 12:02 PM Age: 67 yrs Reason For Study: CHEST PAIN Height: 72 in Weight: 177 lb BSA: 2.0 m2 MMode/2D Measurements & Calculations IVSd: 1.0 cm Ao root diam: 3.2 cm LVIDd: 5.1 cm LA dimension: 3.9 cm LVIDs: 4.0 cm LVPWd: 0.89 cm EDV(Teich): 122.5 ml LVOT diam: 2.3 cm ESV(Teich): 69.2 ml TAPSE: 2.7 cm RV S Gaston: 13.0 cm/sec Doppler Measurements & Calculations MV E max gaston: 79.5 cm/sec Ao V2 max: 288.5 cm/sec MV A max gaston: 98.2 cm/sec Ao max P.3 mmHg MV E/A: 0.81 Ao V2 mean: 217.2 cm/sec MV dec time: 0.29 sec Ao mean P.3 mmHg Ao V2 VTI: 83.3 cm SADAF(I,D): 0.93 cm2 SADAF(V,D): 1.0 cm2 LV V1 max P.1 mmHg MR max gaston: 451.5 cm/sec LV V1 mean P.2 mmHg MR max P.9 mmHg LV V1 max: 72.7 cm/sec LV V1 mean: 52.7 cm/sec LV V1 VTI: 18.6 cm SV(LVOT): 77.1 ml TR max gaston: 188.1 cm/sec TR max P.4 mmHg Med Peak E' Gaston: 4.2 cm/sec Med E/e': 19.0 Lat Peak E' Gasotn: 6.4 cm/sec Lat E/e': 12.4 Procedure The study was technically adequate with some images being suboptimal in quality. Left Ventricle The left ventricle is normal in size. Left ventricular systolic function is normal. Grade I diastolic dysfunction, (abnormal relaxation pattern). Right Ventricle The right ventricle is normal in size and function. A moderator band is seen in the right ventricle. Atria The left atrium is borderline dilated. Right atrial size is normal. Mitral Valve There is mild mitral annular calcification. There is mild to moderate mitral regurgitation. Tricuspid Valve The tricuspid valve is not well visualized, but is grossly normal. There is Trace to mild tricuspid regurgitation. There was insufficient TR detected to calculate RV systolic pressure. Aortic Valve Mild to moderate valvular aortic stenosis. The calculated aortic valve area using the continuity equa tion is 0.93 cm2. Aortic max pressure gradient= 21.3. Trace aortic regurgitation. Pulmonic Valve The pulmonic valve is not well visualized. There is no pulmonic valvular regurgitation. Great Vessels The aortic root is normal size. Pericardium/Pleura There is no pericardial effusion. Interpretation Summary There is no comparison study available. Trace aortic regurgitation. The left atrium is borderline dilated. There is Trace to mild tricuspid regurgitation. The right ventricle is normal in size and function. Left ventricular systolic function is normal. The left ventricle is normal in size. Mild to moderate valvular aortic stenosis. Seth Thompson MD 05/30/2018 03:26 PM
--- NOTE | 2018-05-30 16:43 | CON.PULM ---
Consult Consult Specialty:: PULMONARY Referred by:: JACOB Reason for Consultation:: COPD - History of Present Illness Chief Complaint: SOB History of Present Illness: The patient is a 67M with a PMH of anemia 4 mos ago, worked up else where and was started on neupogen.H/o DM,s/p left bka , HTN, NC and COPD still smoking, who presents to the ER with shortness of breath. The patient states that he began to feel short of breath 2 days ago and it has worsened. He states that he woke up in the middle of the night and felt acutely short of breath and called EMS. During this episode, he states that he also had retrosternal CP which radiates to his back, and is no longer present. He admits to some nausea but denies vomiting, fevers, chills, numbness, tingling, or weakness. Denies black or bloody stool. 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 No: AFIB Pulmonary: Yes: COPD. No: O2 Dependent Gastrointestinal: No: Ascites Hepatobiliary: No: Cirrhosis Renal/: No: Renal Failure Heme/Onc: Yes: Anemia - Past Surgical History Additional Surgical History: left bka - Alcohol/Substance Use Hx Alcohol Use: No History of Substance Use: reports: None - Smoking History Smoking history: Current every day smoker Have you smoked in the past 12 months: Yes Aproximately how many cigarettes per day: 8 - Social History Usual Living Arrangement: Assisted Living Place of : [facility] History of Recent Travel: No Home Medications - Allergies Allergies/Adverse Reactions: Allergies Allergy/AdvReac Type Severity Reaction Status Date / Time No Known Allergies Allergy Verified 05/29/18 10:03 - Home Medications Home Medications: Ambulatory Orders Aspirin 81 mg PO DAILY 05/29/18 Atorvastatin Ca [Lipitor] 40 mg PO HS 05/29/18 Budesonide/Formeterol Fumarate [SYMBICORT 80/4.5mcg -] 2 inh PO BID 05/29/18 Cyanocobalamin (Vitamin B-12) [Vitamin B-12] 1,000 mcg PO DAILY 05/29/18 Epoetin Blue [Epogen] 20,000 unit IJ WEEKLY 05/29/18 Escitalopram Oxalate [Lexapro -] 10 mg PO HS 05/29/18 Folic Acid 1 mg PO DAILY 05/29/18 Gabapentin 100 mg PO TID 05/29/18 Guaifenesin [Mucinex] 600 mg PO BID 05/29/18 Levothyroxine [Synthroid -] 25 mcg PO DAILY 05/29/18 Linagliptin [Tradjenta] 5 mg PO DAILY 05/29/18 Metoprolol Succinate 100 mg PO DAILY 05/29/18 Multivitamins [Tab-A-Vit -] 1 tab PO DAILY 05/29/18 Polyethylene Glycol 3350 [Miralax (For Daily Use) -] 17 gm PO DAILY 05/29/18 Sennosides [Senna] 8.6 mg PO HS 05/29/18 Tramadol HCl 50 mg PO TID PRN 05/29/18 Family Disease History - Family Disease History Family History: Unremarkable Review of Systems - Review of Systems Constitutional: denies: Fever Eyes: denies: Blurred Vision HENT: denies: Difficult Swallowing Neck: denies: Decreased ROM Cardiovascular: reports: Chest Pain Respiratory: reports: Exercise Intolerance, SOB, SOB on Exertion. denies: Hemoptysis, Wheezing Gastrointestinal: denies: Abdominal Pain Genitourinary: denies: Burning Breasts: reports: No Symptoms Reported Musculoskeletal: reports: No Symptoms Integumentary: reports: No Symptoms Neurological: reports: No Symptoms Physical Exam Vital Sings: Vital Signs Temperature 98.4 F 05/30/18 06:28 Pulse Rate 71 05/30/18 09:10 Respiratory Rate 19 05/30/18 06:28 Blood Pressure 138/66 05/30/18 09:10 O2 Sat by Pulse Oximetry (%) 98 05/30/18 06:28 Constitutional: Yes: Calm Eyes: Yes: EOM Intact HENT: Yes: Normocephalic Neck: Yes: Trachea Midline Cardiovascular: Yes: Regular Rate and Rhythm Respiratory: Yes: Diminished Gastrointestinal: Yes: Normal Bowel Sounds Extremities: Yes: Amputation (left bka) Integumentary: Yes: WNL Neurological: Yes: Alert Psychiatric: Yes: WNL Labs: CBC, BMP 05/30/18 05:55 05/30/18 05:55 rest reviewed Imaging - Results Chest X-ray: Report Reviewed, Image Reviewed EKG: Report Reviewed, Image Reviewed Assessment/Plan ANEMIA OF UNCLEAR ETIOLOGY WHICH IS LIKELY CONTRIBUTING TO HIS WORSENING DYSPNEA COPD/ACTIVE SMOKER 1/2 PACK PER DAY FOR MANY YEARS SELF REPORTED NC DM S/P LEFT BKA 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
--- NOTE | 2018-05-30 19:11 | CON.CARD ---
Consult Consult Specialty:: Cardiology Referred by:: ED Reason for Consultation:: Chest pain with elevated troponin and ECG abnormalities. - History of Present Illness Chief Complaint: Shortness of breath and chest pain History of Present Illness: 67 year-old man, smoker, with a PMHx of HTN, DM, PVD, s/p left BKA, COPD, CKD, anemia on neupogen presented to the ER 05/29/2018 with worsening SOB. The patient began to feel SOB 2 days ago and progressively worsened. He called EMS after one episode of acute SOB in the middle of the night. He had short lasting chest pain during acute SOB. He was found to have severe anemia and received 3 units transfusion with disproportional increased H+H. His troponin is mildly elevated. Seen by GI. EGD and colonoscopy planned. ECG 05/29/2018 revealed sinus rhythm with LAD, RBBB and lateral ST-T changes, suggestive of ischemia. Echocardiogram 05/30/2018 showed normal LV size, wall motion and systolic function. Normal RV. Borderline LA dilatation. Moderate with SADAF = 0.93cm2, PG = 33.3 mmHg, MG = 21.3 mmHg. Mild to moderate MR. No pericardial effusion. 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 Cardio/Vascular: Yes: HTN Pulmonary: Yes: COPD Gastrointestinal: No: Ascites Hepatobiliary: No: Cirrhosis Renal/: No: Renal Failure Endocrine: Yes: Diabetes Mellitus, Hypothyroidism - Past Surgical History Additional Surgical History: left bka - Alcohol/Substance Use Hx Alcohol Use: No History of Substance Use: reports: None - Smoking History Smoking history: Current every day smoker Have you smoked in the past 12 months: Yes Aproximately how many cigarettes per day: 8 - Social History Usual Living Arrangement: Assisted Living History of Recent Travel: No Home Medications - Allergies Allergies/Adverse Reactions: Allergies Allergy/AdvReac Type Severity Reaction Status Date / Time No Known Allergies Allergy Verified 05/29/18 10:03 - Home Medications Home Medications: Ambulatory Orders Aspirin 81 mg PO DAILY 05/29/18 Atorvastatin Ca [Lipitor] 40 mg PO HS 05/29/18 Budesonide/Formeterol Fumarate [SYMBICORT 80/4.5mcg -] 2 inh PO BID 05/29/18 Cyanocobalamin (Vitamin B-12) [Vitamin B-12] 1,000 mcg PO DAILY 05/29/18 Epoetin Blue [Epogen] 20,000 unit IJ WEEKLY 05/29/18 Escitalopram Oxalate [Lexapro -] 10 mg PO HS 05/29/18 Folic Acid 1 mg PO DAILY 05/29/18 Gabapentin 100 mg PO TID 05/29/18 Guaifenesin [Mucinex] 600 mg PO BID 05/29/18 Levothyroxine [Synthroid -] 25 mcg PO DAILY 05/29/18 Linagliptin [Tradjenta] 5 mg PO DAILY 05/29/18 Metoprolol Succinate 100 mg PO DAILY 05/29/18 Multivitamins [Tab-A-Vit -] 1 tab PO DAILY 05/29/18 Polyethylene Glycol 3350 [Miralax (For Daily Use) -] 17 gm PO DAILY 05/29/18 Sennosides [Senna] 8.6 mg PO HS 05/29/18 Tramadol HCl 50 mg PO TID PRN 05/29/18 Review of Systems - Review of Systems Constitutional: reports: Weakness Cardiovascular: reports: Chest Pain, Shortness of Breath Respiratory: reports: SOB, SOB on Exertion Gastrointestinal: reports: No Symptoms Musculoskeletal: reports: Other (Left BKA) Hematology/Lymphatic: reports: Other (Severe anemia) - Risk Factors Known Risk Factors: Yes: Age, Diabetes Mellitus, Hypercholesterolemia, Hypertension, Smoking Vital Signs: Vital Signs Temperature 98.4 F 05/30/18 16:58 Pulse Rate 63 05/30/18 16:58 Respiratory Rate 18 05/30/18 16:58 Blood Pressure 115/65 05/30/18 16:58 O2 Sat by Pulse Oximetry (%) 93 L 05/30/18 16:58 General: Well developed. Chronic ill. No acute distress. Head: Normocephalic. Atraumatic, Neck: Supple. No JVD. No bruits. Heart: Normal S1, S2: Regular rhythm and rate. II/ KODI, SUSANNA to radiation to neck. A2 is decreased No gallop or rub. Lungs: Symmetrical air entry. Clear to auscultation. No crackle. No wheezing or rhonchi. Abdomen: Soft. Bowel sound positive. Non tender. No masses. Extremities: Left BKA. No edema. No clubbing or cyanosis. Neuro: Intact, no focal findings. AAO X3. - Other Data Labs, Other Data: CBC, BMP 05/30/18 05:55 05/30/18 05:55 INR, PTT INR 1.08 (0.83-1.09) 05/29/18 10:40 Troponin, BNP 05/30/18 05/30/18 05:55 10:45 Troponin I 0.17 H 0.15 H Troponin, BNP 05/30/18 05/30/18 05:55 10:45 Troponin I 0.17 H 0.15 H Imaging - Results EKG: Image Reviewed (ECG 05/29/2018 revealed sinus rhythm with LAD, RBBB and lateral ST-T changes, suggestive of ischemia.) Assessment/Plan 67 year-old man, smoker, with a PMHx of HTN, DM, PVD, s/p left BKA, COPD, CKD, anemia on neupogen presented to the ER 05/29/2018 with worsening SOB. The patient began to feel SOB 2 days ago and progressively worsened. He called EMS after one episode of acute SOB in the middle of the night. He had short lasting chest pain during acute SOB. He was found to have severe anemia and received 3 units transfusion with disproportional increased H+H. His troponin is mildly elevated. Seen by GI. EGD and colonoscopy planned. ECG 05/29/2018 revealed sinus rhythm with LAD, RBBB and lateral ST-T changes, suggestive of ischemia. Echocardiogram 05/30/2018 showed normal LV size, wall motion and systolic function. Normal RV. Borderline LA dilatation. Moderate with SADAF = 0.93cm2, PG = 33.3 mmHg, MG = 21.3 mmHg. Mild to moderate MR. No pericardial effusion. 1) Chest pain with mildly elevated troponin: The patient had predominantly dyspnea with some chest pain during acute SOB. Troponin is mildly elevated in the setting of severe anemia. Echo showed normal LV systolic function without regional wall motion abnormalities. It is type II [place], demand ischemia, not acute coronary syndrome. However, he has ECG evidence ischemia with multiple risk factors of CAD. He is likely has significant underline CAD. -Continue metoprolol and atorvastatin -Restart aspirin after GI work up and H+H stable. -Transfusion as needed prevent severe anemia. -Not a candidate for further ischemic work up at this time. 2) Aortic stenosis: Moderate aortic stenosis with preserved LV systolic function. Observation and follow up echo in 6-12 months. 3) No cardiac contraindication to low risk EGD and colonoscopy.
[2018-05-30] MEDS ORDERED: DEXTROSE 5%-WATER - 50 ML IVPB ONE (21:10)
[2018-05-30] MEDS ORDERED: PIPERACILLIN/TAZOBACTAM 2.25 GM VIAL IVPB ONE (21:10)
[2018-05-30] MEDS: ATORVASTATIN CA 40 MG TABLET (FP) PO SCH (21:46)
[2018-05-30] MEDS: ESCITALOPRAM OXALATE 10 MG TABLET (FP) PO SCH (21:46)
[2018-05-30] MEDS: SENNOSIDES 8.6MG TABLET (FP) PO SCH (21:47)
--- NOTE | 2018-05-30 23:00 | CONSULT ---
Consult - text type - Consultation Consultation Note: Patient seen and examined Patient is a 67M with a PMH of anemia , DM, HTN, and COPD who presented to the ER with shortness of breath. The patient states that he began to feel short of breath 2 days ago and it has worsened. He admits to some nausea but denies vomiting, fevers, chills, numbness, tingling, or weakness. On admission was noted to have macrocytic, normochromic anemia (HGB 6.9 g/dl), normal PLT, and mild leukocytosis, normal coags. S/P 2 u PRBC with expected correction(HGB 8.8 g/dl) Takes ASA and epogen. Per patient, he was diagnosed with anemia 4 or more months ago and was transfused on 2 occasions over last 2 yrs. - Smoking History Smoking history: Current every day smoker Home Medications - Allergies Allergies/Adverse Reactions: Allergies Allergy/AdvReac Type Severity Reaction Status Date / Time No Known Allergies Allergy Verified 05/29/18 10:03 - Home Medications Home Medications: Ambulatory Orders Aspirin 81 mg PO DAILY 05/29/18 Atorvastatin Ca [Lipitor] 40 mg PO HS 05/29/18 Budesonide/Formeterol Fumarate [SYMBICORT 80/4.5mcg -] 2 inh PO BID 05/29/18 Cyanocobalamin (Vitamin B-12) [Vitamin B-12] 1,000 mcg PO DAILY 05/29/18 Epoetin Blue [Epogen] 20,000 unit IJ WEEKLY 05/29/18 Escitalopram Oxalate [Lexapro -] 10 mg PO HS 05/29/18 Folic Acid 1 mg PO DAILY 05/29/18 Gabapentin 100 mg PO TID 05/29/18 Guaifenesin [Mucinex] 600 mg PO BID 05/29/18 Levothyroxine [Synthroid -] 25 mcg PO DAILY 05/29/18 Linagliptin [Tradjenta] 5 mg PO DAILY 05/29/18 Metoprolol Succinate 100 mg PO DAILY 05/29/18 Multivitamins [Tab-A-Vit -] 1 tab PO DAILY 05/29/18 Polyethylene Glycol 3350 [Miralax (For Daily Use) -] 17 gm PO DAILY 05/29/18 Sennosides [Senna] 8.6 mg PO HS 05/29/18 Tramadol HCl 50 mg PO TID PRN 05/29/18 Family Disease History - Family Disease History Family History: Unremarkable Review of Systems Findings/Remarks: as per HPI, ED, H&P Physical Exam-GI Vital Signs: Vital Signs Temperature 98.4 F 05/30/18 06:28 Pulse Rate 71 05/30/18 09:10 Respiratory Rate 19 05/30/18 06:28 Blood Pressure 138/66 05/30/18 09:10 O2 Sat by Pulse Oximetry (%) 98 05/30/18 06:28 Constitutional: Yes: Well Nourished, No Distress, Calm Eyes: Yes: Conjunctiva Clear Neck: Yes: Supple Cardiovascular: Yes: Regular Rate and Rhythm Respiratory: Yes: Regular Gastrointestinal Inspection: No: Ascites, Distention ...Auscultate: Yes: Normoactive Bowel Sounds Neurological: Yes: Alert Labs/Meds reviewed Assessment/Plan Symptomatic anemia Right base infiltrate- 'CKD Hypertension HLD DM 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
[2018-05-31 02:15] LABS: URINE APPEARANCE SLCLOUDY; URINE BILIRUBIN NEGATIVE (<2.0 mg/dL); URINE COLOR YELLOW; URINE GLUCOSE (UA) 1+ (NEGATIVE); URINE KETONE NEGATIVE (NEGATIVE); URINE LEUK ESTERASE NEGATIVE (NEGATIVE); URINE NITRITE NEGATIVE (NEGATIVE); URINE UROBILINOGEN NEGATIVE mg/dL (0.2-1.0)
[2018-05-31 02:16] LABS: URINE PROTEIN 3+ (NEGATIVE)
[2018-05-31 02:19] LABS: EPI CELLS RARE /HPF (FEW); GRANULAR CASTS 34 /lpf; URINE HYALINE CAST 5 /lpf
[2018-05-31] MEDS ORDERED: PIPERACILLIN/TAZOBACTAM 2.25 GM VIAL IVPB ONE ×3 (03:24→17:45)
[2018-05-31] MEDS ORDERED: DEXTROSE 5%-WATER - 50 ML IVPB ONE ×3 (03:24→17:45)
[2018-05-31] MEDS: PIPERACILLIN/TAZOB 2.25 GM 2.25 GM in DEXTROSE 5%-WATER - 50 ML IVPB SCH ×3 (03:30→18:23)
[2018-05-31] MEDS: GABAPENTIN 100 MG CAPSULE (FP) PO SCH ×3 (05:43→21:23)
[2018-05-31] MEDS: LEVOTHYROXINE NA 25 MCG TABLET (FP) PO SCH ×2 (05:51→06:43)
[2018-05-31 07:01] LABS: BASO % 0.4 % (0-2.0); EOS % 1.4 % (0-4.5); HEMATOCRIT 25.1 % (35.4-49); HEMOGLOBIN 8.3 GM/dL (11.7-16.9); LYMPH % 8.5 % (8-40); MCH 32.8 pg (25.7-33.7); MCHC 33.3 g/dl (32.0-35.9); MEAN CELL VOLUME 98.6 fl (80-96); MEAN PLT VOLUME 9.6 fl (7.5-11.1); NEUT % 71.7 % (42.8-82.8); PLATELET COUNT 290 K/MM3 (134-434); RBC 2.54 M/mm3 (4.00-5.60); RDW 21.2 % (11.9-15.9); WHITE BLOOD COUNT 7.1 K/mm3 (4.0-10.0)
[2018-05-31 07:45] LABS: CHLORIDE 110 mmol/L (98-107); POTASSIUM 4.6 mmol/L (3.5-5.1); SODIUM 142 mmol/L (136-145)
--- NOTE | 2018-05-31 08:39 | PN ---
Progress Note, Physician - Current Medication List Current Medications: Active Medications Atorvastatin Calcium (Lipitor -) 40 mg PO HS [facility] Last Admin: 05/30/18 21:46 Dose: 40 mg Budesonide/Formoterol Fumarate (Symbicort 80/4.5mcg -) 2 puff IH BID [facility] Last Admin: 05/30/18 21:47 Dose: 2 puff Escitalopram Oxalate (Lexapro -) 10 mg PO HS [facility] Last Admin: 05/30/18 21:46 Dose: 10 mg Folic Acid (Folic Acid -) 1 mg PO DAILY [facility] Last Admin: 05/30/18 09:11 Dose: 1 mg Gabapentin (Neurontin -) 100 mg PO TID [facility] Last Admin: 05/31/18 05:43 Dose: 100 mg Guaifenesin (Mucinex -) 600 mg PO BID [facility] Last Admin: 05/30/18 21:46 Dose: 600 mg Piperacillin Sod/Tazobactam (Sod 2.25 gm/ Dextrose) 50 mls @ 100 mls/hr IVPB Q8H-IV [facility]; Protocol Last Admin: 05/31/18 03:30 Dose: 100 mls/hr Levothyroxine Sodium (Synthroid -) 25 mcg PO DAILY@0700 [facility] Last Admin: 05/31/18 06:43 Dose: Not Given Metoprolol Succinate (Toprol Xl -) 100 mg PO DAILY [facility] Last Admin: 05/30/18 09:11 Dose: 100 mg Pantoprazole Sodium (Protonix Iv) 40 mg IVPUSH BID [facility] Last Admin: 05/30/18 21:47 Dose: 40 mg Polyethylene Glycol (Miralax (For Daily Use) -) 17 gm PO DAILY [facility] Last Admin: 05/30/18 09:11 Dose: 17 grams Senna (Senna -) 1 tab PO HS [facility] Last Admin: 05/30/18 21:47 Dose: 1 tab Tramadol HCl (Ultram -) 50 mg PO TID PRN PRN Reason: PAIN - Objective Vital Signs: Vital Signs Temperature 98.3 F 05/31/18 05:52 Pulse Rate 66 05/31/18 05:52 Respiratory Rate 20 05/31/18 05:52 Blood Pressure 140/83 05/31/18 05:52 O2 Sat by Pulse Oximetry (%) 93 L 05/30/18 21:00 Cardiovascular: Yes: Murmur, S1, S2 Respiratory: Yes: Regular, CTA Bilaterally Gastrointestinal: Yes: Normal Bowel Sounds, Soft. No: Tenderness Labs: CBC, BMP 05/31/18 05:30 INR, PTT INR 1.08 (0.83-1.09) 05/29/18 10:40 Assessment/Plan - Problems (1) Anemia Assessment/Plan: s/p prbc heme and gi eval monitor h/h iron panel pending occult blood negative ppi bid NPO till seen by GI Code(s): D64.9 - ANEMIA, UNSPECIFIED Qualifiers: Anemia type: unspecified type Qualified Code(s): D64.9 - Anemia, unspecified (2) Pneumonia Assessment/Plan: vancomcyin and zosyn per id Code(s): J18.9 - PNEUMONIA, UNSPECIFIED ORGANISM Qualifiers: Pneumonia type: due to unspecified organism Laterality: right Lung location: lower lobe of lung Qualified Code(s): J18.1 - Lobar pneumonia, unspecified organism (3) Renal insufficiency Assessment/Plan: renal consult renal and bladder sono UA Code(s): N28.9 - DISORDER OF KIDNEY AND URETER, UNSPECIFIED (4) Troponin level elevated Assessment/Plan: will monitor trend maybe secondary to demand ischemia in setting of anemia will check echo j[facility] at [facility] motion abnormality and ejection fraction, cardiology consult as well betablocker continue t wave abnormality noted on ekg will hold on aspirin given anemia- need to find source Code(s): R74.8 - ABNORMAL LEVELS OF OTHER SERUM ENZYMES (5) Hypothyroid Assessment/Plan: TSH and free t4 noted on synthroid Code(s): E03.9 - HYPOTHYROIDISM, UNSPECIFIED (6) COPD (chronic obstructive pulmonary disease) Assessment/Plan: bronchodilators oxygen via nasal canula pulm consult Code(s): J44.9 - CHRONIC OBSTRUCTIVE PULMONARY DISEASE, UNSPECIFIED
[2018-05-31 08:50] LABS: ALBUMIN 2.5 g/dl (3.4-5.0); ALK PHOS 53 U/L (45-117); ANION GAP 8 MMOL/L (8-16); BILIRUBIN,TOTAL 0.7 mg/dL (0.2-1.0); BLOOD UREA NITROGEN 43 mg/dL (7-18); CO2 24 mmol/L (21-32); GLUCOSE,RANDOM 125 mg/dL (74-106); SGOT/AST 8 U/L (15-37); SGPT/ALT 16 U/L (12-78)
[2018-05-31] MEDS: BUDESONIDE/FORMETEROL FUMARATE 80/4.5 mcg INHALER IH SCH ×2 (10:00→21:24)
--- NOTE | 2018-05-31 10:26 | PN ---
Progress Note, Physician History of Present Illness: seen and examine today in nad. no overnight events. no new complaints. - Current Medication List Current Medications: Active Medications Atorvastatin Calcium (Lipitor -) 40 mg PO HS [facility] Last Admin: 05/30/18 21:46 Dose: 40 mg Budesonide/Formoterol Fumarate (Symbicort 80/4.5mcg -) 2 puff IH BID [facility] Last Admin: 05/30/18 21:47 Dose: 2 puff Escitalopram Oxalate (Lexapro -) 10 mg PO HS [facility] Last Admin: 05/30/18 21:46 Dose: 10 mg Folic Acid (Folic Acid -) 1 mg PO DAILY [facility] Last Admin: 05/30/18 09:11 Dose: 1 mg Gabapentin (Neurontin -) 100 mg PO TID [facility] Last Admin: 05/31/18 05:43 Dose: 100 mg Guaifenesin (Mucinex -) 600 mg PO BID [facility] Last Admin: 05/30/18 21:46 Dose: 600 mg Piperacillin Sod/Tazobactam (Sod 2.25 gm/ Dextrose) 50 mls @ 100 mls/hr IVPB Q8H-IV [facility]; Protocol Last Admin: 05/31/18 03:30 Dose: 100 mls/hr Levothyroxine Sodium (Synthroid -) 25 mcg PO DAILY@0700 [facility] Last Admin: 05/31/18 06:43 Dose: Not Given Metoprolol Succinate (Toprol Xl -) 100 mg PO DAILY [facility] Last Admin: 05/30/18 09:11 Dose: 100 mg Pantoprazole Sodium (Protonix Iv) 40 mg IVPUSH BID [facility] Last Admin: 05/30/18 21:47 Dose: 40 mg Polyethylene Glycol (Miralax (For Daily Use) -) 17 gm PO DAILY [facility] Last Admin: 05/30/18 09:11 Dose: 17 grams Senna (Senna -) 1 tab PO HS [facility] Last Admin: 05/30/18 21:47 Dose: 1 tab Tramadol HCl (Ultram -) 50 mg PO TID PRN PRN Reason: PAIN - Objective Vital Signs: Vital Signs Temperature 98.3 F 05/31/18 05:52 Pulse Rate 66 05/31/18 05:52 Respiratory Rate 20 05/31/18 05:52 Blood Pressure 140/83 05/31/18 05:52 O2 Sat by Pulse Oximetry (%) 93 L 09/10/18 21:00 Constitutional: Yes: No Distress, Calm Eyes: Yes: Conjunctiva Clear, EOM Intact HENT: Yes: Atraumatic, Normocephalic Neck: Yes: Supple, Trachea Midline Cardiovascular: Yes: Regular Rate and Rhythm, Murmur, S1, S2. No: Bradycardia, Tachycardia, Pulse Irregular, Bruit, JVD, Gallop, Rub, S3, S4, Varicosities Respiratory: Yes: Regular, Diminished, Rhonchi. No: Rales, SOB, Tachypnea, Wheezes Gastrointestinal: Yes: Normal Bowel Sounds, Soft Extremities: Yes: Amputation Edema: No Peripheral Pulses WNL: No Neurological: Yes: Alert, Oriented Psychiatric: Yes: Alert, Oriented Labs: CBC, BMP 05/31/18 05:30 05/31/18 05:30 INR, PTT INR 1.08 (0.83-1.09) 05/29/18 10:40 - ....Imaging Chest X-ray: Report Reviewed, Image Reviewed EKG: Report Reviewed, Image Reviewed Other: Report Reviewed, Image Reviewed (tele-no sig arrhythmias) Assessment/Plan 67 year-old man, smoker, with a PMHx of HTN, DM, PVD, s/p left BKA, COPD, CKD, anemia on neupogen presented to the ER 05/29/2018 with worsening SOB. The patient began to feel SOB 2 days ago and progressively worsened. He called EMS after one episode of acute SOB in the middle of the night. He had short lasting chest pain during acute SOB. He was found to have severe anemia and received 3 units transfusion with disproportional increased H+H. His troponin is mildly elevated. Seen by GI. EGD and colonoscopy planned. ECG 05/29/2018 revealed sinus rhythm with LAD, RBBB and lateral ST-T changes, suggestive of ischemia. Echocardiogram 05/30/2018 showed normal LV size, wall motion and systolic function. Normal RV. Borderline LA dilatation. Moderate with SADAF = 0.93cm2, PG = 33.3 mmHg, MG = 21.3 mmHg. Mild to moderate MR. No pericardial effusion. 1) Chest pain with mildly elevated troponin: The patient had predominantly dyspnea with some chest pain during acute SOB. Troponin is mildly elevated in the setting of severe anemia. -Echo showed normal LV systolic function without regional wall motion abnormalities. It is type II [place], demand ischemia, not acute coronary syndrome. However, he has ECG evidence ischemia with multiple risk factors of CAD. He is likely has significant underline CAD. -Continue metoprolol and atorvastatin -Restart aspirin after GI work up and H+H stable. -Transfusion as needed prevent severe anemia. -Not a candidate for further ischemic work up at this time. 2) Aortic stenosis: Moderate aortic stenosis with preserved LV systolic function. Observation and follow up echo in 6-12 months. 3) No cardiac contraindication to low risk EGD and colonoscopy.
[2018-05-31] MEDS: guaiFENesin 600 MG TABLET.ER (FP) PO SCH ×2 (10:35→21:23)
[2018-05-31] MEDS: FOLIC ACID 1 MG TABLET (FP) PO SCH (10:35)
[2018-05-31] MEDS: PANTOPRAZOLE SODIUM 40 MG VIAL IVPUSH SCH ×2 (10:35→21:23)
--- NOTE | 2018-05-31 10:48 | PN ---
Progress Note, Physician History of Present Illness: pulmonary alert,feeling better,less dyspneic - Current Medication List Current Medications: Active Medications Atorvastatin Calcium (Lipitor -) 40 mg PO HS [facility] Last Admin: 05/30/18 21:46 Dose: 40 mg Budesonide/Formoterol Fumarate (Symbicort 80/4.5mcg -) 2 puff IH BID [facility] Last Admin: 05/30/18 21:47 Dose: 2 puff Escitalopram Oxalate (Lexapro -) 10 mg PO HS [facility] Last Admin: 05/30/18 21:46 Dose: 10 mg Folic Acid (Folic Acid -) 1 mg PO DAILY [facility] Last Admin: 05/31/18 10:35 Dose: 1 mg Gabapentin (Neurontin -) 100 mg PO TID [facility] Last Admin: 05/31/18 05:43 Dose: 100 mg Guaifenesin (Mucinex -) 600 mg PO BID [facility] Last Admin: 05/31/18 10:35 Dose: 600 mg Piperacillin Sod/Tazobactam (Sod 2.25 gm/ Dextrose) 50 mls @ 100 mls/hr IVPB Q8H-IV [facility]; Protocol Last Admin: 05/31/18 10:35 Dose: 100 mls/hr Levothyroxine Sodium (Synthroid -) 25 mcg PO DAILY@0700 [facility] Last Admin: 05/31/18 06:43 Dose: Not Given Metoprolol Succinate (Toprol Xl -) 100 mg PO DAILY [facility] Last Admin: 05/31/18 10:35 Dose: 100 mg Pantoprazole Sodium (Protonix Iv) 40 mg IVPUSH BID [facility] Last Admin: 05/31/18 10:35 Dose: 40 mg Polyethylene Glycol (Miralax (For Daily Use) -) 17 gm PO DAILY [facility] Last Admin: 05/30/18 09:11 Dose: 17 grams Senna (Senna -) 1 tab PO [facility] Last Admin: 05/30/18 21:47 Dose: 1 tab Tramadol HCl (Ultram -) 50 mg PO TID PRN PRN Reason: PAIN - Objective Vital Signs: Vital Signs Temperature 98.3 F 05/31/18 05:52 Pulse Rate 66 05/31/18 05:52 Respiratory Rate 20 05/31/18 05:52 Blood Pressure 140/83 05/31/18 05:52 O2 Sat by Pulse Oximetry (%) 93 L 05/30/18 21:00 Constitutional: Yes: Well Nourished, Calm Eyes: Yes: WNL HENT: Yes: WNL Neck: Yes: WNL Cardiovascular: Yes: Regular Rate and Rhythm, S1, S2 Respiratory: Yes: CTA Bilaterally Gastrointestinal: Yes: Normal Bowel Sounds, Soft Extremities: Yes: Amputation Edema: No (LEFT BKA) Labs: CBC, BMP 05/31/18 05:30 05/31/18 05:30 INR, PTT INR 1.08 (0.83-1.09) 05/29/18 10:40 Problem List - Problems (1) Anemia Code(s): D64.9 - ANEMIA, UNSPECIFIED Qualifiers: Anemia type: unspecified type Qualified Code(s): D64.9 - Anemia, unspecified (2) COPD (chronic obstructive pulmonary disease) Code(s): J44.9 - CHRONIC OBSTRUCTIVE PULMONARY DISEASE, UNSPECIFIED (3) Hypothyroid Code(s): E03.9 - HYPOTHYROIDISM, UNSPECIFIED (4) Macrocytic anemia Code(s): D53.9 - NUTRITIONAL ANEMIA, UNSPECIFIED (5) Renal insufficiency Code(s): N28.9 - DISORDER OF KIDNEY AND URETER, UNSPECIFIED Assessment/Plan Assessment/Plan ANEMIA LIKELY CONTRIBUTING TO HIS WORSENING DYSPNEA COPD/ACTIVE SMOKER 1/2 PACK PER DAY FOR MANY YEARS ? H/O MD DM S/P LEFT BKA O2 TO KEEP SAT GREATER THAN 90% TRANSFUSE TO HGB GREATER THAN 8 GMS ANEMIA WORKUP BRONCHODILATORS MONITOR LYTES,RENAL FUNCTION,H+H CLEARED FROM A PULMONARY STANDPOINT FOR ENDOSCOPIC EVALUATIONS LOW DOSE CHEST CT OUTPATIENT FOR LUNG CANCER SCREENING PFTS OUTPATIENT DR SANCHEZ
--- NOTE | 2018-05-31 11:28 | PN ---
Progress Note, Physician History of Present Illness: Pt seen and examined at bedside. He is awake and alert. He denies shortness of breath. - Current Medication List Current Medications: Active Medications Atorvastatin Calcium (Lipitor -) 40 mg PO HS [facility] Last Admin: 05/30/18 21:46 Dose: 40 mg Budesonide/Formoterol Fumarate (Symbicort 80/4.5mcg -) 2 puff IH BID [facility] Last Admin: 05/30/18 21:47 Dose: 2 puff Escitalopram Oxalate (Lexapro -) 10 mg PO HS [facility] Last Admin: 05/30/18 21:46 Dose: 10 mg Folic Acid (Folic Acid -) 1 mg PO DAILY [facility] Last Admin: 05/31/18 10:35 Dose: 1 mg Gabapentin (Neurontin -) 100 mg PO TID [facility] Last Admin: 05/31/18 05:43 Dose: 100 mg Guaifenesin (Mucinex -) 600 mg PO BID [facility] Last Admin: 05/31/18 10:35 Dose: 600 mg Piperacillin Sod/Tazobactam (Sod 2.25 gm/ Dextrose) 50 mls @ 100 mls/hr IVPB Q8H-IV [facility]; Protocol Last Admin: 05/31/18 10:35 Dose: 100 mls/hr Levothyroxine Sodium (Synthroid -) 25 mcg PO DAILY@0700 [facility] Last Admin: 05/31/18 06:43 Dose: Not Given Metoprolol Succinate (Toprol Xl -) 100 mg PO DAILY [facility] Last Admin: 05/31/18 10:35 Dose: 100 mg Pantoprazole Sodium (Protonix Iv) 40 mg IVPUSH BID [facility] Last Admin: 05/31/18 10:35 Dose: 40 mg Polyethylene Glycol (Miralax (For Daily Use) -) 17 gm PO DAILY [facility] Last Admin: 05/30/18 09:11 Dose: 17 grams Senna (Senna -) 1 tab PO HS [facility] Last Admin: 05/30/18 21:47 Dose: 1 tab Tramadol HCl (Ultram -) 50 mg PO TID PRN PRN Reason: PAIN - Objective Vital Signs: Vital Signs Temperature 98.3 F 05/31/18 05:52 Pulse Rate 66 05/31/18 05:52 Respiratory Rate 20 05/31/18 05:52 Blood Pressure 140/83 05/31/18 05:52 O2 Sat by Pulse Oximetry (%) 93 L 05/30/18 21:00 Constitutional: Yes: Calm Eyes: Yes: Conjunctiva Clear HENT: Yes: Atraumatic Neck: Yes: Supple Cardiovascular: Yes: S1, S2 Respiratory: Yes: CTA Bilaterally Gastrointestinal: Yes: Normal Bowel Sounds, Soft Genitourinary: Yes: WNL Extremities: Yes: Other (left foot amputation) Edema: No Neurological: Yes: Oriented Psychiatric: Yes: Oriented Labs: CBC, BMP 05/31/18 05:30 05/31/18 05:30 INR, PTT INR 1.08 (0.83-1.09) 05/29/18 10:40 - ....Imaging Ultrasound: Report Reviewed Problem List - Problems (1) Anemia Code(s): D64.9 - ANEMIA, UNSPECIFIED Qualifiers: Anemia type: unspecified type Qualified Code(s): D64.9 - Anemia, unspecified (2) COPD (chronic obstructive pulmonary disease) Code(s): J44.9 - CHRONIC OBSTRUCTIVE PULMONARY DISEASE, UNSPECIFIED (3) Renal insufficiency Code(s): N28.9 - DISORDER OF KIDNEY AND URETER, UNSPECIFIED Assessment/Plan Current Medications Generic Name Dose Route Start Last Admin Trade Name Freq PRN Reason Stop Dose Admin Atorvastatin Calcium 40 mg 05/29/18 22:00 05/30/18 21:46 Lipitor - PO 40 mg HS [facility] Administration Budesonide/Formoterol Fumarate 2 puff 05/29/18 22:00 05/30/18 21:47 Symbicort 80/4.5mcg - IH 2 puff BID [facility] Administration Escitalopram Oxalate 10 mg 05/29/18 22:00 05/30/18 21:46 Lexapro - PO 10 mg HS [facility] Administration Folic Acid 1 mg 05/30/18 10:00 05/31/18 10:35 Folic Acid - PO 1 mg DAILY [facility] Administration Gabapentin 100 mg 05/29/18 22:00 05/31/18 05:43 Neurontin - PO 100 mg TID [facility] Administration Guaifenesin 600 mg 05/29/18 22:00 05/31/18 10:35 Mucinex - PO 600 mg BID [facility] Administration Piperacillin Sod/Tazobactam 50 mls @ 100 mls/hr 05/30/18 12:45 05/31/18 10:35 Sod 2.25 gm/ Dextrose IVPB 100 mls/hr Q8H-IV [facility] Administration Protocol Levothyroxine Sodium 25 mcg 05/30/18 07:00 05/31/18 06:43 Synthroid - PO Not Given DAILY@0700 [facility] Metoprolol Succinate 100 mg 05/30/18 10:00 05/31/18 10:35 Toprol Xl - PO 100 mg DAILY [facility] Administration Pantoprazole Sodium 40 mg 05/29/18 22:00 05/31/18 10:35 Protonix Iv IVPUSH 40 mg BID [facility] Administration Polyethylene Glycol 17 gm 05/30/18 10:00 05/30/18 09:11 Miralax (For Daily Use) - PO 17 grams DAILY [facility] Administration Senna 1 tab 05/29/18 22:00 05/30/18 21:47 Senna - PO 1 tab HS [facility] Administration Tramadol HCl 50 mg 05/29/18 15:45 Ultram - PO TID PRN PAIN Impression 1. CKD 2. anemia 3. dyspnea 4. HTN 5. DM 6. hypothyroidism 7. HLD 8. copd 9. proteinuria 10. active smoker Plan - ultrasound shows enlarged prostate and elevated pvr, recommend urology eval - can start flomax in the meantime - pt will need a CKD workup, can complete in office - will send prelim workup - anemia workup is in progress - check protein to furniture repairer ratio Dr Haley
--- NOTE | 2018-05-31 11:49 | PN ---
Physical Exam: SUBJECTIVE: Patient seen and examined OBJECTIVE: Vital Signs Period Temp Pulse Resp BP Sys/Stoner Pulse Ox Last 24 Hr 98.3 F-99.5 F 63-70 18-20 115-140/59-83 93-93 GENERAL: Elderly male, lying comfortably in bed, Awake, alert, and fully oriented, in no acute distress. HEAD: Normal with no signs of trauma. EYES: EOM intact, pallor +, icterus. EARS, NOSE, THROAT: Ears normal. Moist mucous membranes. NECK: Supple. LUNGS: B/L coarse breath sounds. No wheezes. No accessory muscle use. HEART: Regular rate and rhythm, normal S1 and S2 with soft systolic murmur. ABDOMEN: Soft, nontender, not distended, normoactive bowel sounds, no guarding, no rebound, no masses. No hepatomegaly or splenomegaly. MUSCULOSKELETAL: Normal range of motion at all joints. No bony deformities or tenderness. No CVA tenderness. UPPER EXTREMITIES/RIGHT lower ext: 2+ pulses, warm, well-perfused. No cyanosis. No clubbing. Cap refill <2 seconds. No peripheral edema. LEFT LOWER EXTREMITY:Below knee amputation, stump looks dry and clean. NEUROLOGICAL: No facial droop. Normal speech. Gait not observed. PSYCHIATRIC: Cooperative. Good eye contact. Appropriate mood and affect. SKIN: Warm, dry, normal turgor, no rashes or lesions noted. Laboratory Results - last 24 hr 05/30/18 05/30/18 05/31/18 10:45 21:13 01:55 WBC RBC Hgb Hct MCV MCH MCHC RDW Plt Count MPV Absolute Neuts (auto) Neutrophils % Lymphocytes % Monocytes % Eosinophils % Basophils % Nucleated RBC % Retic Count Sodium Potassium Chloride Carbon Dioxide Anion Gap BUN Creatinine Creat Clearance w eGFR POC Glucometer 132 Random Glucose Calcium Phosphorus 3.0 Ferritin Total Bilirubin AST ALT Alkaline Phosphatase Creatine Kinase Troponin I 0.15 H Total Protein Albumin Vitamin B12 Serum Folate TSH 1.77 Free T4 1.00 Urine Color Yellow Urine Appearance Slcloudy Urine pH 5.0 Ur Specific [place] 1.016 Urine Protein 3+ H Urine Glucose (UA) 1+ H Urine Ketones Negative Urine Blood 1+ H Urine Nitrite Negative Urine Bilirubin Negative Urine Urobilinogen Negative Ur Leukocyte Esterase Negative Urine WBC (Auto) 1 Urine RBC (Auto) 1 Ur Epithelial Cells Rare Hyaline Casts 5 Granular Casts 34 05/31/18 05/31/18 05/31/18 05:30 05:30 05:30 WBC 7.1 RBC 2.54 L Hgb 8.3 L Hct 25.1 L MCV 98.6 H MCH 32.8 MCHC 33.3 RDW 21.2 H Plt Count 290 MPV 9.6 Absolute Neuts (auto) 5.1 Neutrophils % 71.7 Lymphocytes % 8.5 D Monocytes % 18.0 H Eosinophils % 1.4 D Basophils % 0.4 Nucleated RBC % 0 Retic Count Sodium 142 Potassium 4.6 Chloride 110 H Carbon Dioxide 24 Anion Gap 8 BUN 43 H Creatinine 2.0 H Creat Clearance w eGFR 33.49 POC Glucometer Random Glucose 125 H Calcium 8.0 L Phosphorus Ferritin 1081.9 H Total Bilirubin 0.7 AST 8 L D ALT 16 Alkaline Phosphatase 53 Creatine Kinase 33 L Cancelled Troponin I 0.09 H D Cancelled Total Protein 6.0 L Albumin 2.5 L Vitamin B12 1927 H Serum Folate 49 H TSH Free T4 Urine Color Urine Appearance Urine pH Ur Specific [place] Urine Protein Urine Glucose (UA) Urine Ketones Urine Blood Urine Nitrite Urine Bilirubin Urine Urobilinogen Ur Leukocyte Esterase Urine WBC (Auto) Urine RBC (Auto) Ur Epithelial Cells Hyaline Casts Granular Casts 05/31/18 05/31/18 05/31/18 05:30 05:30 10:41 WBC RBC Hgb Hct MCV MCH MCHC RDW Plt Count MPV Absolute Neuts (auto) Neutrophils % Lymphocytes % Monocytes % Eosinophils % Basophils % Nucleated RBC % Retic Count 0.83 Sodium Potassium Chloride Carbon Dioxide Anion Gap BUN Creatinine Creat Clearance w eGFR POC Glucometer 130 Random Glucose Calcium Phosphorus Ferritin Total Bilirubin AST ALT Alkaline Phosphatase Creatine Kinase Troponin I Total Protein Albumin Vitamin B12 Cancelled Serum Folate TSH Free T4 Urine Color Urine Appearance Urine pH Ur Specific [place] Urine Protein Urine Glucose (UA) Urine Ketones Urine Blood Urine Nitrite Urine Bilirubin Urine Urobilinogen Ur Leukocyte Esterase Urine WBC (Auto) Urine RBC (Auto) Ur Epithelial Cells Hyaline Casts Granular Casts Active Medications Generic Name Dose Route Start Last Admin Trade Name Freq PRN Reason Stop Dose Admin Atorvastatin Calcium 40 mg 05/29/18 22:00 05/30/18 21:46 Lipitor - PO 40 mg HS [facility] Administration Budesonide/Formoterol Fumarate 2 puff 05/29/18 22:00 05/30/18 21:47 Symbicort 80/4.5mcg - IH 2 puff BID [facility] Administration Escitalopram Oxalate 10 mg 05/29/18 22:00 05/30/18 21:46 Lexapro - PO 10 mg HS [facility] Administration Folic Acid 1 mg 05/30/18 10:00 05/31/18 10:35 Folic Acid - PO 1 mg DAILY [facility] Administration Gabapentin 100 mg 05/29/18 22:00 05/31/18 05:43 Neurontin - PO 100 mg TID [facility] Administration Guaifenesin 600 mg 05/29/18 22:00 05/31/18 10:35 Mucinex - PO 600 mg BID [facility] Administration Piperacillin Sod/Tazobactam 50 mls @ 100 mls/hr 05/30/18 12:45 05/31/18 10:35 Sod 2.25 gm/ Dextrose IVPB 100 mls/hr Q8H-IV [facility] Administration Protocol Levothyroxine Sodium 25 mcg 05/30/18 07:00 05/31/18 06:43 Synthroid - PO Not Given DAILY@0700 [facility] Metoprolol Succinate 100 mg 05/30/18 10:00 05/31/18 10:35 Toprol Xl - PO 100 mg DAILY [facility] Administration Pantoprazole Sodium 40 mg 05/29/18 22:00 05/31/18 10:35 Protonix Iv IVPUSH 40 mg BID [facility] Administration Polyethylene Glycol 17 gm 05/30/18 10:00 05/30/18 09:11 Miralax (For Daily Use) - PO 17 grams DAILY [facility] Administration Senna 1 tab 05/29/18 22:00 05/30/18 21:47 Senna - PO 1 tab HS [facility] Administration Tamsulosin HCl 0.4 mg 06/01/18 08:30 Flomax - PO DAILY@0830 [facility] Tramadol HCl 50 mg 05/29/18 15:45 Ultram - PO TID PRN PAIN Patient is a 67 year old male with past medical history of Hypertension, Hyperlipidemia, DM-uncontrolled, 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 ASSESSMENT Symptomatic anemia Right base infiltrate-monitor of abx as per pulm. CKD (baseline unknown) Hypertension-controlled HLD DM Amputation of BKA due to gangrene CAD COPD on home oxy (non compliant) PLAN: Symptomatic anemia H/H 6.9/21.1---> s/p 2 PRBC 8.8/26 05/30/18---> Today its 8.3/25.1 Iron studies pending except for Ferritin which is high. Rest of the studies might not be accurate given recent Blood transfusion. Will need EGD/Colonoscopy to find out the GI source, as per GI team. Has never had Colonoscopy or EGD in the past. Will order CBC in AM. Transfuse if < 7 gm/dl or if actively bleeding Flow cytometry, FISH, reticulocyte count, B12, folate sent TSH in normal range. Rest as per the primary team. Plan of care explained to the patient. He verbalized understanding. Case discussed with Dr. Wagoner: We will continue to follow the patient. Thank you for this consultative opportunity. Visit type - Emergency Visit Emergency Visit: Yes ED Registration Date: 05/29/18 Care time: The patient presented to the Emergency Department on the above date and was hospitalized for further evaluation of their emergent condition. - New Patient This patient is new to me today: No - Critical Care Critical Care patient: No - Discharge Referral Referred to [facility] Med [facility].: No
[2018-05-31] MEDS: POLYETHYLENE GLYCOL 3350 119 GM BTL PO SCH (13:41)
[2018-05-31] MEDS: ESCITALOPRAM OXALATE 10 MG TABLET (FP) PO SCH (21:23)
[2018-05-31] MEDS: SENNOSIDES 8.6MG TABLET (FP) PO SCH (21:23)
[2018-05-31] MEDS: ATORVASTATIN CA 40 MG TABLET (FP) PO SCH (21:23)
[2018-06-01] MEDS ORDERED: DEXTROSE 5%-WATER - 50 ML IVPB ONE ×3 (00:55→17:42)
[2018-06-01] MEDS ORDERED: PIPERACILLIN/TAZOBACTAM 2.25 GM VIAL IVPB ONE ×3 (00:55→17:41)
[2018-06-01] MEDS: PIPERACILLIN/TAZOB 2.25 GM 2.25 GM in DEXTROSE 5%-WATER - 50 ML IVPB SCH ×3 (00:59→17:42)
[2018-06-01 06:06] LABS: SERUM IRON SATURATION 21 % (15-55); TOTAL IRON BINDING CAPACITY 128 ug/dL (250-450); UIBC 101 ug/dL (111-343)
[2018-06-01 06:37] LABS: BASO % 0.4 % (0-2.0); EOS % 1.9 % (0-4.5); HEMATOCRIT 24.9 % (35.4-49); HEMOGLOBIN 8.4 GM/dL (11.7-16.9); LYMPH % 9.7 % (8-40); MCH 33.2 pg (25.7-33.7); MCHC 33.8 g/dl (32.0-35.9); MEAN PLT VOLUME 9.3 fl (7.5-11.1); MONO % 20.4 % (3.8-10.2); NEUT % 67.6 % (42.8-82.8); PLATELET COUNT 285 K/MM3 (134-434); RBC 2.54 M/mm3 (4.00-5.60); RDW 20.1 % (11.9-15.9); WHITE BLOOD COUNT 5.9 K/mm3 (4.0-10.0)
[2018-06-01] MEDS: GABAPENTIN 100 MG CAPSULE (FP) PO SCH ×3 (06:39→21:02)
[2018-06-01] MEDS: LEVOTHYROXINE NA 25 MCG TABLET (FP) PO SCH (06:39)
[2018-06-01 07:12] LABS: ANION GAP 9 MMOL/L (8-16); BLOOD UREA NITROGEN 34 mg/dL (7-18); CALCIUM 7.8 mg/dL (8.5-10.1); CHLORIDE 109 mmol/L (98-107); CO2 24 mmol/L (21-32); CREATININE 1.9 mg/dL (0.7-1.3); GLUCOSE,RANDOM 139 mg/dL (74-106); POTASSIUM 4.4 mmol/L (3.5-5.1); SODIUM 142 mmol/L (136-145)
--- NOTE | 2018-06-01 08:01 | PN ---
Progress Note, Physician - Current Medication List Current Medications: Active Medications Atorvastatin Calcium (Lipitor -) 40 mg PO HS [facility] Last Admin: 05/31/18 21:23 Dose: 40 mg Bisacodyl (Dulcolax -) 20 mg PO ONCE ONE Stop: 06/01/18 12:05 Budesonide/Formoterol Fumarate (Symbicort 80/4.5mcg -) 2 puff IH BID [facility] Last Admin: 05/31/18 21:24 Dose: 2 puff Escitalopram Oxalate (Lexapro -) 10 mg PO HS [facility] Last Admin: 05/31/18 21:23 Dose: 10 mg Folic Acid (Folic Acid -) 1 mg PO DAILY [facility] Last Admin: 05/31/18 10:35 Dose: 1 mg Gabapentin (Neurontin -) 100 mg PO TID [facility] Last Admin: 06/01/18 06:39 Dose: 100 mg Guaifenesin (Mucinex -) 600 mg PO BID [facility] Last Admin: 05/31/18 21:23 Dose: 600 mg Piperacillin Sod/Tazobactam (Sod 2.25 gm/ Dextrose) 50 mls @ 100 mls/hr IVPB Q8H-IV [facility]; Protocol Last Admin: 06/01/18 00:59 Dose: 100 mls/hr Levothyroxine Sodium (Synthroid -) 25 mcg PO DAILY@0700 [facility] Last Admin: 06/01/18 06:39 Dose: 25 mcg Metoprolol Succinate (Toprol Xl -) 100 mg PO DAILY [facility] Last Admin: 05/31/18 10:35 Dose: 100 mg Pantoprazole Sodium (Protonix Iv) 40 mg IVPUSH BID [facility] Last Admin: 05/31/18 21:23 Dose: 40 mg Polyethylene Glycol (Miralax (For Daily Use) -) 17 gm PO DAILY [facility] Last Admin: 05/31/18 13:41 Dose: 17 grams Polyethylene Glycol/Electrolytes (Golytely Solution -) 4,000 ml PO ONCE ONE Stop: 06/01/18 18:01 Senna (Senna -) 1 tab PO [facility] Last Admin: 05/31/18 21:23 Dose: 1 tab Tamsulosin HCl (Flomax -) 0.4 mg PO DAILY@0830 [facility] Tramadol HCl (Ultram -) 50 mg PO TID PRN PRN Reason: PAIN - Objective Vital Signs: Vital Signs Temperature 98.9 F 06/01/18 06:00 Pulse Rate 62 06/01/18 06:00 Respiratory Rate 20 06/01/18 06:00 Blood Pressure 146/78 06/01/18 06:00 O2 Sat by Pulse Oximetry (%) 96 05/31/18 21:00 Cardiovascular: Yes: S1, S2 Respiratory: Yes: Regular, CTA Bilaterally Gastrointestinal: Yes: Normal Bowel Sounds, Soft. No: Tenderness Extremities: Yes: Amputation (Left) Labs: CBC, BMP 06/01/18 05:30 06/01/18 05:30 INR, PTT INR 1.08 (0.83-1.09) 05/29/18 10:40 Assessment/Plan - Problems (1) Anemia Assessment/Plan: s/p prbc heme and gi eval monitor h/h Laboratory Tests 06/01/18 05:30 Hgb 8.4 L Hct 24.9 L occult blood negative ppi bid Endoscopy per GI Code(s): D64.9 - ANEMIA, UNSPECIFIED Qualifiers: Anemia type: unspecified type Qualified Code(s): D64.9 - Anemia, unspecified (2) Pneumonia Assessment/Plan: CT scan chronic changes--some scarring will need monitoring--no acute ds dc abx? Code(s): J18.9 - PNEUMONIA, UNSPECIFIED ORGANISM Qualifiers: Pneumonia type: due to unspecified organism Laterality: right Lung location: lower lobe of lung Qualified Code(s): J18.1 - Lobar pneumonia, unspecified organism (3) Renal insufficiency Assessment/Plan: renal consult renal and bladder sono UA Code(s): N28.9 - DISORDER OF KIDNEY AND URETER, UNSPECIFIED (4) Troponin level elevated Assessment/Plan: will monitor trend maybe secondary to demand ischemia in setting of anemia echo noted cardiology consult no further ischemia w/u beta-syed continue t wave abnormality noted on ekg will hold on aspirin given anemia- need to find source Code(s): R74.8 - ABNORMAL LEVELS OF OTHER SERUM ENZYMES (5) Hypothyroid Assessment/Plan: TSH and free t4 noted on synthroid Code(s): E03.9 - HYPOTHYROIDISM, UNSPECIFIED (6) COPD (chronic obstructive pulmonary disease) Assessment/Plan: bronchodilators ct as above oxygen via nasal canula pulm consult Code(s): J44.9 - CHRONIC OBSTRUCTIVE PULMONARY DISEASE, UNSPECIFIED
[2018-06-01] MEDS: TAMSULOSIN HCL 0.4 MG CAP.ER.24H (FP) PO SCH (09:04)
[2018-06-01] MEDS: guaiFENesin 600 MG TABLET.ER (FP) PO SCH ×2 (11:05→21:02)
[2018-06-01] MEDS: FOLIC ACID 1 MG TABLET (FP) PO SCH (11:05)
[2018-06-01] MEDS: POLYETHYLENE GLYCOL 3350 119 GM BTL PO SCH (11:05)
[2018-06-01] MEDS: BUDESONIDE/FORMETEROL FUMARATE 80/4.5 mcg INHALER IH SCH ×2 (11:06→21:02)
[2018-06-01] MEDS: PANTOPRAZOLE SODIUM 40 MG VIAL IVPUSH SCH ×2 (11:06→21:02)
[2018-06-01 11:47] LABS: ANISOCYTOSIS 1+; MACROCYTOSIS 1+
[2018-06-01] MEDS ORDERED: BISACODYL 5 MG TABLET.DR (FP) PO ONE (12:04)
--- NOTE | 2018-06-01 12:04 | PN ---
Progress Note, Physician History of Present Illness: pulmonary alert,no distress,-cp,-sob,-cough - Current Medication List Current Medications: Active Medications Atorvastatin Calcium (Lipitor -) 40 mg PO [facility] Last Admin: 05/31/18 21:23 Dose: 40 mg Bisacodyl (Dulcolax -) 20 mg PO ONCE ONE Stop: 06/01/18 12:05 Last Admin: 06/01/18 11:38 Dose: 20 mg Budesonide/Formoterol Fumarate (Symbicort 80/4.5mcg -) 2 puff IH BID [facility] Last Admin: 06/01/18 11:06 Dose: 2 puff Escitalopram Oxalate (Lexapro -) 10 mg PO HS [facility] Last Admin: 05/31/18 21:23 Dose: 10 mg Folic Acid (Folic Acid -) 1 mg PO DAILY [facility] Last Admin: 06/01/18 11:05 Dose: 1 mg Gabapentin (Neurontin -) 100 mg PO TID [facility] Last Admin: 06/01/18 06:39 Dose: 100 mg Guaifenesin (Mucinex -) 600 mg PO BID [facility] Last Admin: 06/01/18 11:05 Dose: 600 mg Piperacillin Sod/Tazobactam (Sod 2.25 gm/ Dextrose) 50 mls @ 100 mls/hr IVPB Q8H-IV [facility]; Protocol Last Admin: 06/01/18 11:06 Dose: 100 mls/hr Levothyroxine Sodium (Synthroid -) 25 mcg PO DAILY@0700 [facility] Last Admin: 06/01/18 06:39 Dose: 25 mcg Metoprolol Succinate (Toprol Xl -) 100 mg PO DAILY [facility] Last Admin: 06/01/18 11:06 Dose: 100 mg Pantoprazole Sodium (Protonix Iv) 40 mg IVPUSH BID [facility] Last Admin: 06/01/18 11:06 Dose: 40 mg Polyethylene Glycol (Miralax (For Daily Use) -) 17 gm PO DAILY [facility] Last Admin: 06/01/18 11:05 Dose: 17 grams Polyethylene Glycol/Electrolytes (Golytely Solution -) 4,000 ml PO ONCE ONE Stop: 06/01/18 18:01 Senna (Senna -) 1 tab PO [facility] Last Admin: 05/31/18 21:23 Dose: 1 tab Tamsulosin HCl (Flomax -) 0.4 mg PO DAILY@0830 [facility] Last Admin: 06/01/18 09:04 Dose: 0.4 mg Tramadol HCl (Ultram -) 50 mg PO TID PRN PRN Reason: PAIN - Objective Vital Signs: Vital Signs Temperature 98.8 F 06/01/18 10:00 Pulse Rate 64 06/01/18 10:00 Respiratory Rate 18 06/01/18 10:00 Blood Pressure 146/82 06/01/18 10:00 O2 Sat by Pulse Oximetry (%) 96 05/31/18 21:00 Constitutional: Yes: Well Nourished, Calm Eyes: Yes: WNL HENT: Yes: WNL Neck: Yes: WNL Cardiovascular: Yes: Regular Rate and Rhythm, S1, S2 Respiratory: Yes: CTA Bilaterally Gastrointestinal: Yes: Normal Bowel Sounds, Soft Extremities: Yes: WNL Edema: No Labs: CBC, BMP 06/01/18 05:30 06/01/18 05:30 INR, PTT INR 1.08 (0.83-1.09) 05/29/18 10:40 - ....Imaging Cat Scan: Report Reviewed, Image Reviewed (RUL nodule,bilateral consolidations) Problem List - Problems (1) Anemia Code(s): D64.9 - ANEMIA, UNSPECIFIED Qualifiers: Anemia type: unspecified type Qualified Code(s): D64.9 - Anemia, unspecified (2) COPD (chronic obstructive pulmonary disease) Code(s): J44.9 - CHRONIC OBSTRUCTIVE PULMONARY DISEASE, UNSPECIFIED (3) Hypothyroid Code(s): E03.9 - HYPOTHYROIDISM, UNSPECIFIED (4) Macrocytic anemia Code(s): D53.9 - NUTRITIONAL ANEMIA, UNSPECIFIED (5) Renal insufficiency Code(s): N28.9 - DISORDER OF KIDNEY AND URETER, UNSPECIFIED Assessment/Plan Assessment/Plan ANEMIA LIKELY CONTRIBUTING TO HIS WORSENING DYSPNEA COPD/ACTIVE SMOKER 1/2 PACK PER DAY FOR MANY YEARS ? H/O HI DM S/P LEFT BKA RUL NODULE BILATERAL CONSOLIDATIONS ? ATELECTASIS,?INFLAMMATORY,?INFECTIOUS O2 TO KEEP SAT GREATER THAN 90% TRANSFUSE TO HGB GREATER THAN 8 GMS ANEMIA WORKUP BRONCHODILATORS MONITOR LYTES,RENAL FUNCTION,H+H CLEARED FROM A PULMONARY STANDPOINT FOR ENDOSCOPIC EVALUATIONS PFTS OUTPATIENT ABX F/U CHEST CT OUTPATIENT6-8 WKS IF NO CHANGE PET CT DR SANCHEZ
--- NOTE | 2018-06-01 12:10 | PN ---
Progress Note, Physician History of Present Illness: Pt seen and examined at bedside. He is awake and alert. He denies shortness of breath. He denies dysuria. - Current Medication List Current Medications: Active Medications Atorvastatin Calcium (Lipitor -) 40 mg PO HS [facility] Last Admin: 05/31/18 21:23 Dose: 40 mg Budesonide/Formoterol Fumarate (Symbicort 80/4.5mcg -) 2 puff IH BID [facility] Last Admin: 06/01/18 11:06 Dose: 2 puff Escitalopram Oxalate (Lexapro -) 10 mg PO HS [facility] Last Admin: 05/31/18 21:23 Dose: 10 mg Folic Acid (Folic Acid -) 1 mg PO DAILY [facility] Last Admin: 06/01/18 11:05 Dose: 1 mg Gabapentin (Neurontin -) 100 mg PO TID [facility] Last Admin: 06/01/18 06:39 Dose: 100 mg Guaifenesin (Mucinex -) 600 mg PO BID [facility] Last Admin: 06/01/18 11:05 Dose: 600 mg Piperacillin Sod/Tazobactam (Sod 2.25 gm/ Dextrose) 50 mls @ 100 mls/hr IVPB Q8H-IV [facility]; Protocol Last Admin: 06/01/18 11:06 Dose: 100 mls/hr Levothyroxine Sodium (Synthroid -) 25 mcg PO DAILY@0700 [facility] Last Admin: 06/01/18 06:39 Dose: 25 mcg Metoprolol Succinate (Toprol Xl -) 100 mg PO DAILY [facility] Last Admin: 06/01/18 11:06 Dose: 100 mg Pantoprazole Sodium (Protonix Iv) 40 mg IVPUSH BID [facility] Last Admin: 06/01/18 11:06 Dose: 40 mg Polyethylene Glycol (Miralax (For Daily Use) -) 17 gm PO DAILY [facility] Last Admin: 06/01/18 11:05 Dose: 17 grams Polyethylene Glycol/Electrolytes (Golytely Solution -) 4,000 ml PO ONCE ONE Stop: 06/01/18 18:01 Senna (Senna -) 1 tab PO [facility] Last Admin: 05/31/18 21:23 Dose: 1 tab Tamsulosin HCl (Flomax -) 0.4 mg PO DAILY@0830 [facility] Last Admin: 06/01/18 09:04 Dose: 0.4 mg Tramadol HCl (Ultram -) 50 mg PO TID PRN PRN Reason: PAIN - Objective Vital Signs: Vital Signs Temperature 98.8 F 06/01/18 10:00 Pulse Rate 64 06/01/18 10:00 Respiratory Rate 18 06/01/18 10:00 Blood Pressure 146/82 06/01/18 10:00 O2 Sat by Pulse Oximetry (%) 96 05/31/18 21:00 Constitutional: Yes: Calm Eyes: Yes: Conjunctiva Clear HENT: Yes: Atraumatic Neck: Yes: Supple Cardiovascular: Yes: S1, S2 Respiratory: Yes: CTA Bilaterally Gastrointestinal: Yes: Soft Genitourinary: Yes: WNL Musculoskeletal: Yes: Other (left foot amputation) Edema: No Neurological: Yes: Oriented Psychiatric: Yes: Oriented Labs: CBC, BMP 06/01/18 05:30 06/01/18 05:30 INR, PTT INR 1.08 (0.83-1.09) 05/29/18 10:40 Problem List - Problems (1) Anemia Code(s): D64.9 - ANEMIA, UNSPECIFIED Qualifiers: Anemia type: unspecified type Qualified Code(s): D64.9 - Anemia, unspecified (2) COPD (chronic obstructive pulmonary disease) Code(s): J44.9 - CHRONIC OBSTRUCTIVE PULMONARY DISEASE, UNSPECIFIED (3) Renal insufficiency Code(s): N28.9 - DISORDER OF KIDNEY AND URETER, UNSPECIFIED Assessment/Plan Current Medications Generic Name Dose Route Start Last Admin Trade Name Freq PRN Reason Stop Dose Admin Atorvastatin Calcium 40 mg 05/29/18 22:00 05/31/18 21:23 Lipitor - PO 40 mg HS [facility] Administration Budesonide/Formoterol Fumarate 2 puff 05/29/18 22:00 06/01/18 11:06 Symbicort 80/4.5mcg - IH 2 puff BID [facility] Administration Escitalopram Oxalate 10 mg 05/29/18 22:00 05/31/18 21:23 Lexapro - PO 10 mg HS [facility] Administration Folic Acid 1 mg 05/30/18 10:00 06/01/18 11:05 Folic Acid - PO 1 mg DAILY [facility] Administration Gabapentin 100 mg 05/29/18 22:00 06/01/18 06:39 Neurontin - PO 100 mg TID [facility] Administration Guaifenesin 600 mg 05/29/18 22:00 06/01/18 11:05 Mucinex - PO 600 mg BID [facility] Administration Piperacillin Sod/Tazobactam 50 mls @ 100 mls/hr 05/30/18 12:45 06/01/18 11:06 Sod 2.25 gm/ Dextrose IVPB 100 mls/hr Q8H-IV [facility] Administration Protocol Levofloxacin 500 mg in 100 mls @ 100 mls/hr 06/01/18 12:15 Levaquin 500 Mg Premixed Ivpb - IVPB 06/08/18 12:14 DAILY [facility] Protocol Levothyroxine Sodium 25 mcg 05/30/18 07:00 06/01/18 06:39 Synthroid - PO 25 mcg DAILY@0700 [facility] Administration Metoprolol Succinate 100 mg 05/30/18 10:00 06/01/18 11:06 Toprol Xl - PO 100 mg DAILY [facility] Administration Pantoprazole Sodium 40 mg 05/29/18 22:00 06/01/18 11:06 Protonix Iv IVPUSH 40 mg BID [facility] Administration Polyethylene Glycol 17 gm 05/30/18 10:00 06/01/18 11:05 Miralax (For Daily Use) - PO 17 grams DAILY [facility] Administration Polyethylene Glycol/Electrolytes 4,000 ml 06/01/18 18:00 Golytely Solution - PO 06/01/18 18:01 ONCE ONE Senna 1 tab 05/29/18 22:00 05/31/18 21:23 Senna - PO 1 tab HS [facility] Administration Tamsulosin HCl 0.4 mg 06/01/18 08:30 06/01/18 09:04 Flomax - PO 0.4 mg DAILY@0830 [facility] Administration Tramadol HCl 50 mg 05/29/18 15:45 Ultram - PO TID PRN PAIN Laboratory Tests 05/29/18 05/31/18 12:35 05:30 Stool Occult Blood Negative PITA M-Raúl Pending OBIE Screen Pending Impression 1. CKD 2. anemia 3. dyspnea 4. HTN 5. DM 6. hypothyroidism 7. HLD 8. copd 9. proteinuria 10. 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
--- NOTE | 2018-06-01 13:04 | PN ---
Physical Exam: SUBJECTIVE: Patient seen and examined at bed side this morning. No complaints. Feels his shortness of breath has improved. Denies chest pain, sob, cough, palpitation, abdominal pain, nausea or vomiting. Has h/o constipation. Last Bowel movement was 6 days ago. Bladder habit normal. Sleep/Appetite normal. OBJECTIVE: Vital Signs Period Temp Pulse Resp BP Sys/Stoner Pulse Ox Last 24 Hr 97.8 F-98.9 F 60-69 18-20 126-146/72-82 96 GENERAL: Elderly male, lying comfortably in bed, Awake, alert, and fully oriented, in no acute distress. HEAD: Normal with no signs of trauma. EYES: EOM intact, pallor +, icterus. EARS, NOSE, THROAT: Ears normal. Moist mucous membranes. NECK: Supple. LUNGS: B/L decreased breath sounds. No crackles. No wheezes. No accessory muscle use. HEART: Regular rate and rhythm, normal S1 and S2 with soft systolic murmur. ABDOMEN: Soft, nontender, No organomegaly. MUSCULOSKELETAL: Normal range of motion at all joints. No bony deformities or tenderness. No CVA tenderness. UPPER EXTREMITIES/RIGHT lower ext: 2+ pulses, warm, well-perfused. No cyanosis. No clubbing. Cap refill <2 seconds. No peripheral edema. LEFT LOWER EXTREMITY:Below knee amputation, stump looks dry and clean. NEUROLOGICAL: No facial droop. Normal speech. Gait not observed. PSYCHIATRIC: Cooperative. Good eye contact. Appropriate mood and affect. SKIN: Warm, dry, normal turgor, no rashes or lesions noted. Laboratory Results - last 24 hr 05/31/18 05/31/18 06/01/18 05:30 05:30 05:30 WBC RBC Hgb Hct MCV MCH MCHC RDW Plt Count MPV Absolute Neuts (auto) Total Counted Neutrophils % Neutrophils % (Manual) Band Neutrophils % Lymphocytes % Lymphocytes % (Manual) Monocytes % Monocytes % (Manual) Eosinophils % Eosinophils % (Manual) Basophils % Nucleated RBC % Anisocytosis Macrocytosis Sodium 142 Potassium 4.4 Chloride 109 H Carbon Dioxide 24 Anion Gap 9 BUN 34 H Creatinine 1.9 H Creat Clearance w eGFR 35.54 Random Glucose 139 H Calcium 7.8 L Iron 27 L TIBC 128 L Iron Saturation 21 Transferrin 111 L 06/01/18 05:30 WBC 5.9 RBC 2.54 L Hgb 8.4 L Hct 24.9 L MCV 98.0 H MCH 33.2 MCHC 33.8 RDW 20.1 H Plt Count 285 MPV 9.3 Absolute Neuts (auto) 4.0 Total Counted 100 Neutrophils % 67.6 Neutrophils % (Manual) 71.0 Band Neutrophils % 5.0 Lymphocytes % 9.7 Lymphocytes % (Manual) 9.0 Monocytes % 20.4 H Monocytes % (Manual) 13 H Eosinophils % 1.9 Eosinophils % (Manual) 2.0 Basophils % 0.4 Nucleated RBC % 0 Anisocytosis 1+ Macrocytosis 1+ Sodium Potassium Chloride Carbon Dioxide Anion Gap BUN Creatinine Creat Clearance w eGFR Random Glucose Calcium Iron TIBC Iron Saturation Transferrin Active Medications Generic Name Dose Route Start Last Admin Trade Name Freq PRN Reason Stop Dose Admin Atorvastatin Calcium 40 mg 05/29/18 22:00 05/31/18 21:23 Lipitor - PO 40 mg HS [facility] Administration Budesonide/Formoterol Fumarate 2 puff 05/29/18 22:00 06/01/18 11:06 Symbicort 80/4.5mcg - IH 2 puff BID [facility] Administration Escitalopram Oxalate 10 mg 05/29/18 22:00 05/31/18 21:23 Lexapro - PO 10 mg HS [facility] Administration Folic Acid 1 mg 05/30/18 10:00 06/01/18 11:05 Folic Acid - PO 1 mg DAILY [facility] Administration Gabapentin 100 mg 05/29/18 22:00 06/01/18 06:39 Neurontin - PO 100 mg TID [facility] Administration Guaifenesin 600 mg 05/29/18 22:00 06/01/18 11:05 Mucinex - PO 600 mg BID [facility] Administration Piperacillin Sod/Tazobactam 50 mls @ 100 mls/hr 05/30/18 12:45 06/01/18 11:06 Sod 2.25 gm/ Dextrose IVPB 100 mls/hr Q8H-IV [facility] Administration Protocol Levofloxacin 500 mg in 100 mls @ 100 mls/hr 06/01/18 12:15 Levaquin 500 Mg Premixed Ivpb - IVPB 06/08/18 12:14 DAILY [facility] Protocol Levothyroxine Sodium 25 mcg 05/30/18 07:00 06/01/18 06:39 Synthroid - PO 25 mcg DAILY@0700 [facility] Administration Metoprolol Succinate 100 mg 05/30/18 10:00 06/01/18 11:06 Toprol Xl - PO 100 mg DAILY [facility] Administration Pantoprazole Sodium 40 mg 05/29/18 22:00 06/01/18 11:06 Protonix Iv IVPUSH 40 mg BID [facility] Administration Polyethylene Glycol 17 gm 05/30/18 10:00 06/01/18 11:05 Miralax (For Daily Use) - PO 17 grams DAILY [facility] Administration Polyethylene Glycol/Electrolytes 4,000 ml 06/01/18 18:00 Golytely Solution - PO 06/01/18 18:01 ONCE ONE Senna 1 tab 05/29/18 22:00 05/31/18 21:23 Senna - PO 1 tab HS [facility] Administration Tamsulosin HCl 0.4 mg 06/01/18 08:30 06/01/18 09:04 Flomax - PO 0.4 mg DAILY@0830 [facility] Administration Tramadol HCl 50 mg 05/29/18 15:45 Ultram - PO TID PRN PAIN Patient is a 67 year old male with past medical history of Hypertension, Hyperlipidemia, DM-uncontrolled, 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 to the ED with the chief complaint of shortness of breath x 2 days. ASSESSMENT Symptomatic anemia Right base infiltrate-monitor of abx as per pulm. 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 Will need EGD/Colonoscopy to find out the GI source. Has never had Colonoscopy or EGD in the past. Undergoing the procedure tomorrow, NPO overnight, as per GI. Will order CBC in AM. Transfuse if < 7 gm/dl or if actively bleeding B12 normal. Flow cytometry, FISH, reticulocyte count, folate sent-reports pending. TSH in normal range. Rest as per the primary team. Plan of care explained to the patient. He verbalized understanding. Case discussed with Dr. Balderas Dispo: We will continue to follow the patient. Thank you for this consultative opportunity. Visit type - Emergency Visit Emergency Visit: Yes ED Registration Date: 05/29/18 Care time: The patient presented to the Emergency Department on the above date and was hospitalized for further evaluation of their emergent condition. - New Patient This patient is new to me today: No - Critical Care Critical Care patient: No - Discharge Referral Referred to [facility] Med P.C.: No
--- NOTE | 2018-06-01 15:01 | PATH ---
Surgical Pathology Report Patient Name: MARK JOHNSTON Med. Rec. #: [id number] /Age/Gender: 1950 (Age: 67) / M Account: [id number] Location: 4 W TELEMETRY U Taken: 05/30/2018 Received: 05/31/2018 Reported: 06/01/2018 Physicians: Corazon Vallejo M.D. Specimen(s) Received 2 GREEN TOPS Clinical History Anemia Final Diagnosis COMPREHENSIVE FLOW PANEL performed and interpreted at [facility] laboratory, [place], [place] ([id number] shows the following: INTERPRETATION: No atypical flow cytometric findings seen. PHENOTYPE: Lymphocytes include rare B cells that appear polyclonal, NK cells, and immunophenotypically normal T cells with decrease CD4: CD8. No evidence of a clonal lymphoid expansion. Granulocytes are immunophenotypically mature. CYTOMORPHOLOGY: Smears from flow sample show no increase in myeloblasts or atypical lymphocytes. See [facility] report ([id number]) for additional details. Electronically Signed Ximena Bazzi M.D. Gross Description Received are 2 green top tubes of blood which are sent to [facility]. DL/05/31/2018 saudi/05/31/2018
--- NOTE | 2018-06-01 17:16 | PN ---
Progress Note, Physician History of Present Illness: seen and examined today in nad. awaiting endoscopy tomorrow, no new complaints. - Current Medication List Current Medications: Active Medications Atorvastatin Calcium (Lipitor -) 40 mg PO HS [facility] Last Admin: 05/31/18 21:23 Dose: 40 mg Budesonide/Formoterol Fumarate (Symbicort 80/4.5mcg -) 2 puff IH BID [facility] Last Admin: 06/01/18 11:06 Dose: 2 puff Escitalopram Oxalate (Lexapro -) 10 mg PO HS [facility] Last Admin: 05/31/18 21:23 Dose: 10 mg Folic Acid (Folic Acid -) 1 mg PO DAILY [facility] Last Admin: 06/01/18 11:05 Dose: 1 mg Gabapentin (Neurontin -) 100 mg PO TID [facility] Last Admin: 06/01/18 14:21 Dose: 100 mg Guaifenesin (Mucinex -) 600 mg PO BID [facility] Last Admin: 06/01/18 11:05 Dose: 600 mg Piperacillin Sod/Tazobactam (Sod 2.25 gm/ Dextrose) 50 mls @ 100 mls/hr IVPB Q8H-IV [facility]; Protocol Last Admin: 06/01/18 11:06 Dose: 100 mls/hr Levofloxacin (Levaquin 500 Mg Premixed Ivpb -) 500 mg in 100 mls @ 100 mls/hr IVPB DAILY [facility]; Protocol Stop: 18 12:14 Levothyroxine Sodium (Synthroid -) 25 mcg PO DAILY@0700 [facility] Last Admin: 06/01/18 06:39 Dose: 25 mcg Metoprolol Succinate (Toprol Xl -) 100 mg PO DAILY [facility] Last Admin: 06/01/18 11:06 Dose: 100 mg Pantoprazole Sodium (Protonix Iv) 40 mg IVPUSH BID [facility] Last Admin: 06/01/18 11:06 Dose: 40 mg Polyethylene Glycol (Miralax (For Daily Use) -) 17 gm PO DAILY [facility] Last Admin: 06/01/18 11:05 Dose: 17 grams Polyethylene Glycol/Electrolytes (Golytely Solution -) 4,000 ml PO ONCE ONE Stop: 06/01/18 18:01 Senna (Senna -) 1 tab PO [facility] Last Admin: 05/31/18 21:23 Dose: 1 tab Tamsulosin HCl (Flomax -) 0.4 mg PO DAILY@0830 [facility] Last Admin: 06/01/18 09:04 Dose: 0.4 mg - Objective Vital Signs: Vital Signs Temperature 98.3 F 06/01/18 13:24 Pulse Rate 61 06/01/18 13:24 Respiratory Rate 18 06/01/18 10:00 Blood Pressure 138/62 06/01/18 13:24 O2 Sat by Pulse Oximetry (%) 94 L 06/01/18 09:00 Constitutional: Yes: No Distress, Calm Eyes: Yes: Conjunctiva Clear, EOM Intact, PERRL HENT: Yes: Atraumatic, Normocephalic Neck: Yes: Supple, Trachea Midline Cardiovascular: Yes: Regular Rate and Rhythm, Murmur, S1, S2. No: Bradycardia, Tachycardia, Pulse Irregular, Bruit, JVD, Gallop, Rub, S3, S4, Varicosities Respiratory: Yes: Regular, Cough, Rhonchi. No: Rales, SOB, Wheezes Gastrointestinal: Yes: Normal Bowel Sounds, Soft. No: Distention, Tenderness Extremities: Yes: Amputation Edema: No Peripheral Pulses WNL: No Neurological: Yes: Alert, Oriented Psychiatric: Yes: Alert, Oriented Labs: CBC, BMP 06/01/18 05:30 06/01/18 05:30 INR, PTT INR 1.08 (0.83-1.09) 05/29/18 10:40 - ....Imaging Chest X-ray: Report Reviewed, Image Reviewed EKG: Report Reviewed, Image Reviewed Other: Report Reviewed, Image Reviewed (tele-NSR, PVCs, 5 beats nsvt) Assessment/Plan 67 year-old man, smoker, with a PMHx of HTN, DM, PVD, s/p left BKA, COPD, CKD, anemia on neupogen presented to the ER 05/29/2018 with worsening SOB. The patient began to feel SOB 2 days ago and progressively worsened. He called EMS after one episode of acute SOB in the middle of the night. He had short lasting chest pain during acute SOB. He was found to have severe anemia and received 3 units transfusion with disproportional increased H+H. His troponin is mildly elevated. Seen by GI. EGD and colonoscopy planned. ECG 05/29/2018 revealed sinus rhythm with LAD, RBBB and lateral ST-T changes, suggestive of ischemia. Echocardiogram 05/30/2018 showed normal LV size, wall motion and systolic function. Normal RV. Borderline LA dilatation. Moderate with SADAF = 0.93cm2, PG = 33.3 mmHg, MG = 21.3 mmHg. Mild to moderate MR. No pericardial effusion. 1) Chest pain with mildly elevated troponin: The patient had predominantly dyspnea with some chest pain during acute SOB. Troponin is mildly elevated in the setting of severe anemia. -Echo showed normal LV systolic function without regional wall motion abnormalities. It is type II DC, demand ischemia, not acute coronary syndrome. However, he has ECG evidence ischemia with multiple risk factors of CAD. He is likely has significant underline CAD. -Continue metoprolol and atorvastatin -Restart aspirin after GI work up and H+H stable. -Transfusion as needed prevent severe anemia. -Not a candidate for further ischemic work up at this time. 2) Aortic stenosis: Moderate aortic stenosis with preserved LV systolic function. Observation and follow up echo in 6-12 months. 3) No cardiac contraindication to low risk EGD and colonoscopy. 4)NSVT-5 beats -cont metoprolol -monitor tele
[2018-06-01] MEDS ORDERED: PEG 3350/NA SULF BICARB CL/KCL 4000 ML SOLN.RECON PO ONE (18:00)
--- NOTE | 2018-06-01 19:42 | PN ---
Teaching Attending Note Name of Resident: Chelsea Brewer ATTENDING PHYSICIAN STATEMENT I saw and evaluated the patient. I reviewed the resident's note and discussed the case with the resident. I agree with the resident's findings and plan as documented. SUBJECTIVE: Patient seen and exa Last Vital Signs Temp Pulse Resp BP Pulse Ox 98.3 F 61 18 138/62 94 L 06/01/18 13:24 06/01/18 13:24 06/01/18 10:00 06/01/18 13:24 06/01/18 09:00 HEENT: RADHA, EOM Intact Oropharynx: No thrush, No mucositis,edentulous CBC, BMP 06/01/18 05:30 06/01/18 05:30 Cor: RSR, systolic murmur, No gallops Lungs: diminished breath sounds Abd: Soft, Normal bowel sounds, No organomegaly Ext:No significant edema Skin: No rashes, Integument intact For Colonoscopy OBJECTIVE: ASSESSMENT AND PLAN:
[2018-06-01 20:21] LABS: URINE CREATININE 76.6 mg/dL (20-370)
[2018-06-01 20:45] LABS: RATIO URIN PROTEIN/URIN CREAT 3.69 MG/DL
[2018-06-01] MEDS: SENNOSIDES 8.6MG TABLET (FP) PO SCH (21:02)
[2018-06-01] MEDS: ESCITALOPRAM OXALATE 10 MG TABLET (FP) PO SCH (21:02)
[2018-06-01] MEDS: ATORVASTATIN CA 40 MG TABLET (FP) PO SCH (21:02)
[2018-06-02] MEDS ORDERED: PIPERACILLIN/TAZOBACTAM 2.25 GM VIAL IVPB ONE ×2 (03:19→10:32)
[2018-06-02] MEDS ORDERED: DEXTROSE 5%-WATER - 50 ML IVPB ONE ×2 (03:20→10:32)
[2018-06-02] MEDS: PIPERACILLIN/TAZOB 2.25 GM 2.25 GM in DEXTROSE 5%-WATER - 50 ML IVPB SCH ×2 (03:26→10:39)
[2018-06-02 06:27] LABS: BASO % 0.7 % (0-2.0); HEMATOCRIT 26.7 % (35.4-49); HEMOGLOBIN 9.1 GM/dL (11.7-16.9); LYMPH % 12.9 % (8-40); MCH 33.2 pg (25.7-33.7); MCHC 33.9 g/dl (32.0-35.9); MEAN CELL VOLUME 97.9 fl (80-96); MEAN PLT VOLUME 9.3 fl (7.5-11.1); NEUT % 65.4 % (42.8-82.8); PLATELET COUNT 294 K/MM3 (134-434); RBC 2.73 M/mm3 (4.00-5.60); RDW 20.4 % (11.9-15.9); WHITE BLOOD COUNT 5.5 K/mm3 (4.0-10.0)
[2018-06-02 06:33] LABS: INR 1.15 (0.83-1.09)
[2018-06-02] MEDS: LEVOTHYROXINE NA 25 MCG TABLET (FP) PO SCH (06:48)
[2018-06-02] MEDS: GABAPENTIN 100 MG CAPSULE (FP) PO SCH ×2 (06:48→15:13)
[2018-06-02 07:03] LABS: CHLORIDE 105 mmol/L (98-107); POTASSIUM 4.4 mmol/L (3.5-5.1); SODIUM 139 mmol/L (136-145)
[2018-06-02 07:10] LABS: ALBUMIN 2.5 g/dl (3.4-5.0); ALK PHOS 52 U/L (45-117); ANION GAP 8 MMOL/L (8-16); BILIRUBIN,TOTAL 0.7 mg/dL (0.2-1.0); BLOOD UREA NITROGEN 30 mg/dL (7-18); CALCIUM 7.8 mg/dL (8.5-10.1); CO2 26 mmol/L (21-32); CREATININE 1.9 mg/dL (0.7-1.3); GLUCOSE,RANDOM 106 mg/dL (74-106); SGOT/AST 12 U/L (15-37); SGPT/ALT 15 U/L (13-61); TOT PROT 6.4 g/dl (6.4-8.2)
--- NOTE | 2018-06-02 09:25 | PROC ---
Endoscopy Procedure Endoscopy procedure completed. Please see scanned procedure report. Normal upper upper endoscopy with some retained solid food in the stomach noted. Thick brown semiliquid bm while in endo. Drank 1/2 of the colon prep, per patient. Colonoscopy cancelled. Resume previous diet.
--- NOTE | 2018-06-02 09:29 | PN ---
Progress Note (short form) - Note Progress Note: Repeat colonoscopy after 2-day colon perp. Can be done on OP bases. Problem List - Problems (1) Macrocytic anemia Code(s): D53.9 - NUTRITIONAL ANEMIA, UNSPECIFIED
[2018-06-02] MEDS: FOLIC ACID 1 MG TABLET (FP) PO SCH (10:40)
[2018-06-02] MEDS: guaiFENesin 600 MG TABLET.ER (FP) PO SCH (10:40)
[2018-06-02] MEDS: PANTOPRAZOLE SODIUM 40 MG VIAL IVPUSH SCH (10:41)
[2018-06-02] MEDS: TAMSULOSIN HCL 0.4 MG CAP.ER.24H (FP) PO SCH (10:41)
[2018-06-02] MEDS: BUDESONIDE/FORMETEROL FUMARATE 80/4.5 mcg INHALER IH SCH (10:45)
[2018-06-02] MEDS ORDERED: PEG 3350/NA SULF BICARB CL/KCL 4000 ML SOLN.RECON PO ONE (11:20)
--- NOTE | 2018-06-02 11:54 | PN ---
Progress Note, Physician Chief Complaint: Anemia - Current Medication List Current Medications: Active Medications Atorvastatin Calcium (Lipitor -) 40 mg PO [facility] Last Admin: 06/01/18 21:02 Dose: 40 mg Bisacodyl (Dulcolax -) 20 mg PO ONCE ONE Stop: 06/02/18 11:21 Bisacodyl (Dulcolax -) 20 mg PO ONCE ONE Stop: 06/05/18 11:51 Budesonide/Formoterol Fumarate (Symbicort 80/4.5mcg -) 2 puff IH BID [facility] Last Admin: 06/02/18 10:45 Dose: 2 puff Escitalopram Oxalate (Lexapro -) 10 mg PO [facility] Last Admin: 06/01/18 21:02 Dose: 10 mg Folic Acid (Folic Acid -) 1 mg PO DAILY [facility] Last Admin: 06/02/18 10:40 Dose: 1 mg Gabapentin (Neurontin -) 100 mg PO TID [facility] Last Admin: 06/02/18 06:48 Dose: Not Given Guaifenesin (Mucinex -) 600 mg PO BID [facility] Last Admin: 06/02/18 10:40 Dose: 600 mg Piperacillin Sod/Tazobactam (Sod 2.25 gm/ Dextrose) 50 mls @ 100 mls/hr IVPB Q8H-IV [facility]; Protocol Last Admin: 06/02/18 10:39 Dose: 100 mls/hr Levofloxacin (Levaquin 500 Mg Premixed Ivpb -) 500 mg in 100 mls @ 100 mls/hr IVPB DAILY [facility] Levothyroxine Sodium (Synthroid -) 25 mcg PO DAILY@0700 [facility] Last Admin: 06/02/18 06:48 Dose: Not Given Metoprolol Succinate (Toprol Xl -) 100 mg PO DAILY [facility] Last Admin: 06/02/18 10:41 Dose: 100 mg Pantoprazole Sodium (Protonix Iv) 40 mg IVPUSH BID [facility] Last Admin: 06/02/18 10:41 Dose: 40 mg Polyethylene Glycol (Miralax (For Daily Use) -) 17 gm PO DAILY [facility] Last Admin: 06/01/18 11:05 Dose: 17 grams Polyethylene Glycol/Electrolytes (Golytely Solution -) 4,000 ml PO ONCE ONE Stop: 06/05/18 18:01 Senna (Senna -) 1 tab PO [facility] Last Admin: 06/01/18 21:02 Dose: Not Given Tamsulosin HCl (Flomax -) 0.4 mg PO DAILY@0830 [facility] Last Admin: 06/02/18 10:41 Dose: 0.4 mg - Objective Vital Signs: Vital Signs Temperature 98.2 F 06/02/18 10:07 Pulse Rate 61 06/02/18 10:07 Respiratory Rate 18 06/02/18 10:07 Blood Pressure 115/69 06/02/18 10:07 O2 Sat by Pulse Oximetry (%) 7 L 06/02/18 10:07 Constitutional: Yes: Well Nourished, No Distress, Calm Labs: CBC, BMP 06/02/18 05:30 06/02/18 05:30 INR, PTT INR 1.15 (0.83-1.09) H 06/02/18 05:30
--- NOTE | 2018-06-02 12:01 | PN ---
Physical Exam: SUBJECTIVE: Patient seen and examined at bed side this morning. Denies chest pain, sob, cough, palpitation, abdominal pain, nausea or vomiting. No acute overnight events. OBJECTIVE: Vital Signs Period Temp Pulse Resp BP Sys/Stoner Pulse Ox Last 24 Hr 98.1 F-98.6 F 57-74 16-20 106-138/55-76 7-95 GENERAL: Elderly male, lying comfortably in bed, Awake, alert, and fully oriented, in no acute distress. HEAD: Normal with no signs of trauma. EYES: EOM intact, pallor +, icterus. EARS, NOSE, THROAT: Ears normal. Moist mucous membranes. NECK: Supple. LUNGS: B/L decreased breath sounds. No crackles. No wheezes. No accessory muscle use. HEART: Regular rate and rhythm, normal S1 and S2 with soft systolic murmur. ABDOMEN: Soft, nontender, No organomegaly. MUSCULOSKELETAL: Normal range of motion at all joints. No bony deformities or tenderness. No CVA tenderness. UPPER EXTREMITIES/RIGHT lower ext: 2+ pulses, warm, well-perfused. No cyanosis. No clubbing. Cap refill <2 seconds. No peripheral edema. LEFT LOWER EXTREMITY:Below knee amputation, stump looks dry and clean. NEUROLOGICAL: No facial droop. Normal speech. Gait not observed. PSYCHIATRIC: Cooperative. Good eye contact. Appropriate mood and affect. SKIN: Warm, dry, normal turgor, no rashes or lesions noted. Laboratory Results - last 24 hr 05/29/18 05/31/18 06/01/18 10:40 05:30 16:35 WBC RBC Hgb Hct MCV MCH MCHC RDW Plt Count MPV Absolute Neuts (auto) Neutrophils % Lymphocytes % Monocytes % Eosinophils % Basophils % Nucleated RBC % PT with INR INR Sodium Potassium Chloride Carbon Dioxide Anion Gap BUN Creatinine Creat Clearance w eGFR Random Glucose Calcium Total Bilirubin AST ALT Alkaline Phosphatase Total Protein Total Protein (PEP) 5.8 L Albumin Albumin (PEP) 2.9 Globulin 2.9 Albumin/Globulin Ratio 1.0 Beta Globulins 0.6 L U Random Total Protein 283 H Urine Creatinine 76.6 Protein/Creatinin Ratio 3.69 PITA M-Raúl Not observed OBIE Screen Negative Blood Type A POSITIVE Antibody Screen Negative Crossmatch See Detail 06/02/18 06/02/18 06/02/18 05:30 05:30 05:30 WBC 5.5 RBC 2.73 L Hgb 9.1 L Hct 26.7 L MCV 97.9 H MCH 33.2 MCHC 33.9 RDW 20.4 H Plt Count 294 MPV 9.3 Absolute Neuts (auto) 3.6 Neutrophils % 65.4 Lymphocytes % 12.9 D Monocytes % 19.0 H Eosinophils % 2.0 Basophils % 0.7 Nucleated RBC % 0 PT with INR 13.00 INR 1.15 H Sodium 139 Potassium 4.4 Chloride 105 Carbon Dioxide 26 Anion Gap 8 BUN 30 H Creatinine 1.9 H Creat Clearance w eGFR 35.54 Random Glucose 106 D Calcium 7.8 L Total Bilirubin 0.7 AST 12 L ALT 15 Alkaline Phosphatase 52 Total Protein 6.4 Total Protein (PEP) Albumin 2.5 L Albumin (PEP) Globulin Albumin/Globulin Ratio Beta Globulins U Random Total Protein Urine Creatinine Protein/Creatinin Ratio PITA M-Raúl OBIE Screen Blood Type Antibody Screen Crossmatch Active Medications Generic Name Dose Route Start Last Admin Trade Name Freq PRN Reason Stop Dose Admin Atorvastatin Calcium 40 mg 05/29/18 22:00 06/01/18 21:02 Lipitor - PO 40 mg HS AURELIO Administration Bisacodyl 20 mg 06/02/18 11:20 Dulcolax - PO 06/02/18 11:21 ONCE ONE Bisacodyl 20 mg 06/05/18 11:50 Dulcolax - PO 06/05/18 11:51 ONCE ONE Budesonide/Formoterol Fumarate 2 puff 05/29/18 22:00 06/02/18 10:45 Symbicort 80/4.5mcg - IH 2 puff BID AURELIO Administration Escitalopram Oxalate 10 mg 05/29/18 22:00 06/01/18 21:02 Lexapro - PO 10 mg HS AURELIO Administration Folic Acid 1 mg 05/30/18 10:00 06/02/18 10:40 Folic Acid - PO 1 mg DAILY AURELIO Administration Gabapentin 100 mg 05/29/18 22:00 06/02/18 06:48 Neurontin - PO Not Given TID AURELIO Guaifenesin 600 mg 05/29/18 22:00 06/02/18 10:40 Mucinex - PO 600 mg BID AURELIO Administration Levothyroxine Sodium 25 mcg 05/30/18 07:00 06/02/18 06:48 Synthroid - PO Not Given DAILY@0700 AURELIO Metoprolol Succinate 100 mg 05/30/18 10:00 06/02/18 10:41 Toprol Xl - PO 100 mg DAILY AURELIO Administration Pantoprazole Sodium 40 mg 05/29/18 22:00 06/02/18 10:41 Protonix Iv IVPUSH 40 mg BID AURELIO Administration Polyethylene Glycol 17 gm 05/30/18 10:00 06/01/18 11:05 Miralax (For Daily Use) - PO 17 grams DAILY AURELIO Administration Polyethylene Glycol/Electrolytes 4,000 ml 06/05/18 18:00 Golytely Solution - PO 06/05/18 18:01 ONCE ONE Senna 1 tab 05/29/18 22:00 06/01/18 21:02 Senna - PO Not Given HS AURELIO Tamsulosin HCl 0.4 mg 06/01/18 08:30 06/02/18 10:41 Flomax - PO 0.4 mg DAILY@0830 AURELIO Administration Patient is a 67 year old male with past medical history of Hypertension, Hyperlipidemia, DM-uncontrolled, 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 ASSESSMENT Symptomatic anemia Right base infiltrate-monitor of abx as per pulm. CKD (baseline unknown) Hypertension-controlled HLD DM Amputation of BKA due to gangrene CAD COPD on home oxy (non compliant) PLAN: Symptomatic Iron def anemia-Improved after blood transfusion On admission, his H/H was 6.9/21.1---> s/p 2 PRBC 8.8/26 05/30/18---> Today its 9.1/26.7 Has Iron deficiency anemia. EGD was done which was normal. Colonoscopy was attempted but due to inadequate bowel prep it was cancelled, to be done as outpatient, per GI Anemia not due to B12 and Folate def. TSH in normal range. Rest as per the primary team. Plan of care explained to the patient. He verbalized understanding. Case discussed with Dr. Balderas Dispo: We will continue to follow the patient. Thank you for this consultative opportunity. Visit type - Emergency Visit Emergency Visit: Yes ED Registration Date: 05/29/18 Care time: The patient presented to the Emergency Department on the above date and was hospitalized for further evaluation of their emergent condition. - New Patient This patient is new to me today: No - Critical Care Critical Care patient: No - Discharge Referral Referred to [facility] No
[2018-06-02] MEDS ORDERED: LISINOPRIL 5 MG TABLET (FP) PO ONE (12:38)
--- NOTE | 2018-06-02 12:38 | PN ---
Progress Note, Physician History of Present Illness: Pt seen and examined at bedside. He is awake and alert. He denies shortness of breath. He could not complete the colonoscopy as the prep was not adequate. He will go again. He denies dysuria. - Current Medication List Current Medications: Active Medications Atorvastatin Calcium (Lipitor -) 40 mg PO HS [facility] Last Admin: 06/01/18 21:02 Dose: 40 mg Bisacodyl (Dulcolax -) 20 mg PO ONCE ONE Stop: 06/02/18 11:21 Bisacodyl (Dulcolax -) 20 mg PO ONCE ONE Stop: 06/05/18 11:51 Budesonide/Formoterol Fumarate (Symbicort 80/4.5mcg -) 2 puff IH BID [facility] Last Admin: 06/02/18 10:45 Dose: 2 puff Escitalopram Oxalate (Lexapro -) 10 mg PO [facility] Last Admin: 06/01/18 21:02 Dose: 10 mg Folic Acid (Folic Acid -) 1 mg PO DAILY [facility] Last Admin: 06/02/18 10:40 Dose: 1 mg Gabapentin (Neurontin -) 100 mg PO TID [facility] Last Admin: 06/02/18 06:48 Dose: Not Given Guaifenesin (Mucinex -) 600 mg PO BID [facility] Last Admin: 06/02/18 10:40 Dose: 600 mg Levothyroxine Sodium (Synthroid -) 25 mcg PO DAILY@0700 [facility] Last Admin: 06/02/18 06:48 Dose: Not Given Metoprolol Succinate (Toprol Xl -) 100 mg PO DAILY [facility] Last Admin: 06/02/18 10:41 Dose: 100 mg Pantoprazole Sodium (Protonix Iv) 40 mg IVPUSH BID [facility] Last Admin: 06/02/18 10:41 Dose: 40 mg Polyethylene Glycol (Miralax (For Daily Use) -) 17 gm PO DAILY [facility] Last Admin: 06/01/18 11:05 Dose: 17 grams Polyethylene Glycol/Electrolytes (Golytely Solution -) 4,000 ml PO ONCE ONE Stop: 06/05/18 18:01 Senna (Senna -) 1 tab PO [facility] Last Admin: 06/01/18 21:02 Dose: Not Given Tamsulosin HCl (Flomax -) 0.4 mg PO DAILY@0830 [facility] Last Admin: 06/02/18 10:41 Dose: 0.4 mg - Objective Vital Signs: Vital Signs Temperature 98.2 F 06/02/18 10:07 Pulse Rate 61 06/02/18 10:07 Respiratory Rate 18 06/02/18 10:07 Blood Pressure 115/69 06/02/18 10:07 O2 Sat by Pulse Oximetry (%) 7 L 06/02/18 10:07 Constitutional: Yes: Calm Eyes: Yes: Conjunctiva Clear HENT: Yes: Atraumatic Neck: Yes: Supple Cardiovascular: Yes: S1, S2 Respiratory: Yes: CTA Bilaterally Gastrointestinal: Yes: Soft Genitourinary: Yes: WNL Musculoskeletal: Yes: WNL Extremities: Yes: Other (left foot amputation) Edema: No Neurological: Yes: Oriented Psychiatric: Yes: Oriented Labs: CBC, BMP 06/02/18 05:30 06/02/18 05:30 INR, PTT INR 1.15 (0.83-1.09) H 06/02/18 05:30 Problem List - Problems (1) Anemia Code(s): D64.9 - ANEMIA, UNSPECIFIED Qualifiers: Anemia type: unspecified type Qualified Code(s): D64.9 - Anemia, unspecified (2) COPD (chronic obstructive pulmonary disease) Code(s): J44.9 - CHRONIC OBSTRUCTIVE PULMONARY DISEASE, UNSPECIFIED (3) Renal insufficiency Code(s): N28.9 - DISORDER OF KIDNEY AND URETER, UNSPECIFIED Assessment/Plan Current Medications Generic Name Dose Route Start Last Admin Trade Name Freq PRN Reason Stop Dose Admin Atorvastatin Calcium 40 mg 05/29/18 22:00 06/01/18 21:02 Lipitor - PO 40 mg HS AURELIO Administration Bisacodyl 20 mg 06/02/18 11:20 Dulcolax - PO 06/02/18 11:21 ONCE ONE Bisacodyl 20 mg 06/05/18 11:50 Dulcolax - PO 06/05/18 11:51 ONCE ONE Budesonide/Formoterol Fumarate 2 puff 05/29/18 22:00 06/02/18 10:45 Symbicort 80/4.5mcg - IH 2 puff BID AURELIO Administration Escitalopram Oxalate 10 mg 05/29/18 22:00 06/01/18 21:02 Lexapro - PO 10 mg HS AURELIO Administration Folic Acid 1 mg 05/30/18 10:00 06/02/18 10:40 Folic Acid - PO 1 mg DAILY AURELIO Administration Gabapentin 100 mg 05/29/18 22:00 06/02/18 06:48 Neurontin - PO Not Given TID [facility] Guaifenesin 600 mg 05/29/18 22:00 06/02/18 10:40 Mucinex - PO 600 mg BID AURELIO Administration Levothyroxine Sodium 25 mcg 05/30/18 07:00 06/02/18 06:48 Synthroid - PO Not Given DAILY@0700 [facility] Metoprolol Succinate 100 mg 05/30/18 10:00 06/02/18 10:41 Toprol Xl - PO 100 mg DAILY [facility] Administration Pantoprazole Sodium 40 mg 05/29/18 22:00 06/02/18 10:41 Protonix Iv IVPUSH 40 mg BID AURELIO Administration Polyethylene Glycol 17 gm 05/30/18 10:00 06/01/18 11:05 Miralax (For Daily Use) - PO 17 grams DAILY AURELIO Administration Polyethylene Glycol/Electrolytes 4,000 ml 06/05/18 18:00 Golytely Solution - PO 06/05/18 18:01 ONCE ONE Senna 1 tab 05/29/18 22:00 06/01/18 21:02 Senna - PO Not Given [facility] Tamsulosin HCl 0.4 mg 06/01/18 08:30 06/02/18 10:41 Flomax - PO 0.4 mg DAILY@0830 AURELIO Administration Laboratory Tests 05/31/18 06/01/18 05:30 16:35 U Random Total Protein 283 H Urine Creatinine 76.6 Protein/Creatinin Ratio 3.69 PITA M-Raúl Not observed OBIE Screen Negative Impression 1. CKD 2. anemia 3. dyspnea 4. HTN 5. DM 6. hypothyroidism 7. HLD 8. copd 9. proteinuria - nephrotic 10. active smoker Plan - pt has nephrotic range proteinuria - will need further outpt workup - will start low dose bebeto and monitor bp - repeat labs in am - discussed kidney biopsy once more stable - cont flomax - anemia workup is in progress Dr Haley
[2018-06-02] MEDS ORDERED: BISACODYL 5 MG TABLET.DR (FP) PO ONE (13:00)
--- NOTE | 2018-06-02 14:41 | PN ---
Progress Note (short form) - Note Progress Note: PULMONARY Incomplete prep for colonoscopy. Denies shortness of breath, cough or wheezing. Vital Signs Period Temp Pulse Resp BP Sys/Stoner Pulse Ox Last 24 Hr 98.1 F-98.6 F 57-74 16-20 106-135/55-76 7-95 Gen: NAD at rest Heart: RRR Lung: decreased breath sounds at the bases Abd: soft, nontender Ext: left BKA CBC, BMP 06/02/18 05:30 06/02/18 05:30 Active Medications Atorvastatin Calcium (Lipitor -) 40 mg PO HS [facility] Last Admin: 06/01/18 21:02 Dose: 40 mg Bisacodyl (Dulcolax -) 20 mg PO ONCE ONE Stop: 06/05/18 11:51 Budesonide/Formoterol Fumarate (Symbicort 80/4.5mcg -) 2 puff IH BID [facility] Last Admin: 06/02/18 10:45 Dose: 2 puff Escitalopram Oxalate (Lexapro -) 10 mg PO [facility] Last Admin: 06/01/18 21:02 Dose: 10 mg Folic Acid (Folic Acid -) 1 mg PO DAILY [facility] Last Admin: 06/02/18 10:40 Dose: 1 mg Gabapentin (Neurontin -) 100 mg PO TID [facility] Last Admin: 06/02/18 06:48 Dose: Not Given Guaifenesin (Mucinex -) 600 mg PO BID [facility] Last Admin: 06/02/18 10:40 Dose: 600 mg Levothyroxine Sodium (Synthroid -) 25 mcg PO DAILY@0700 [facility] Last Admin: 06/02/18 06:48 Dose: Not Given Lisinopril (Prinivil) 5 mg PO DAILY [facility] Metoprolol Succinate (Toprol Xl -) 100 mg PO DAILY [facility] Last Admin: 06/02/18 10:41 Dose: 100 mg Pantoprazole Sodium (Protonix Iv) 40 mg IVPUSH BID [facility] Last Admin: 06/02/18 10:41 Dose: 40 mg Polyethylene Glycol (Miralax (For Daily Use) -) 17 gm PO DAILY [facility] Last Admin: 06/01/18 11:05 Dose: 17 grams Polyethylene Glycol/Electrolytes (Golytely Solution -) 4,000 ml PO ONCE ONE Stop: 06/05/18 18:01 Senna (Senna -) 1 tab PO [facility] Last Admin: 06/01/18 21:02 Dose: Not Given Tamsulosin HCl (Flomax -) 0.4 mg PO DAILY@0830 [facility] Last Admin: 06/02/18 10:41 Dose: 0.4 mg A/P COPD Anemia CKD HTN DM Hyperlipidemia Hypothyroidism Smoker - inhaled bronchodilators - O2 as needed - smoking cessation - outpt PFTs - DVT prophylaxis
[2018-06-02] MEDS: POLYETHYLENE GLYCOL 3350 119 GM BTL PO SCH (15:17)
[2018-06-02 15:32] VITALS: BP 117/69; PULSE 68; TEMP 98.1
--- NOTE | 2018-06-02 15:43 | PN ---
Progress Note, Physician Chief Complaint: Patient appear comfortable. No chest pain, SOB at rest or palpitation. Tele shows sinus rhythm with frequent VPCs. No recurrent NSVT. History of Present Illness: 67 year-old man, smoker, with a PMHx of HTN, DM, PVD, s/p left BKA, COPD, CKD, anemia on neupogen presented to the ER 05/29/2018 with worsening SOB. The patient began to feel SOB 2 days ago and progressively worsened. He called EMS after one episode of acute SOB in the middle of the night. He had short lasting chest pain during acute SOB. He was found to have severe anemia and received 3 units transfusion with disproportional increased H+H. His troponin is mildly elevated. Seen by GI. EGD and colonoscopy planned. ECG 05/29/2018 revealed sinus rhythm with LAD, RBBB and lateral ST-T changes, suggestive of ischemia. Echocardiogram 05/30/2018 showed normal LV size, wall motion and systolic function. Normal RV. Borderline LA dilatation. Moderate with SADAF = 0.93cm2, PG = 33.3 mmHg, MG = 21.3 mmHg. Mild to moderate MR. No pericardial effusion. Tele showed sinus with frequent VPCs and NSVT. EGD 06/02/2018 reported negative. Colonoscope not completed. - Current Medication List Current Medications: Active Medications Atorvastatin Calcium (Lipitor -) 40 mg PO HS [facility] Last Admin: 06/01/18 21:02 Dose: 40 mg Bisacodyl (Dulcolax -) 20 mg PO ONCE ONE Stop: 06/05/18 11:51 Budesonide/Formoterol Fumarate (Symbicort 80/4.5mcg -) 2 puff IH BID [facility] Last Admin: 06/02/18 10:45 Dose: 2 puff Escitalopram Oxalate (Lexapro -) 10 mg PO HS [facility] Last Admin: 06/01/18 21:02 Dose: 10 mg Folic Acid (Folic Acid -) 1 mg PO DAILY [facility] Last Admin: 06/02/18 10:40 Dose: 1 mg Gabapentin (Neurontin -) 100 mg PO TID [facility] Last Admin: 06/02/18 15:13 Dose: 100 mg Guaifenesin (Mucinex -) 600 mg PO BID [facility] Last Admin: 06/02/18 10:40 Dose: 600 mg Levothyroxine Sodium (Synthroid -) 25 mcg PO DAILY@0700 [facility] Last Admin: 06/02/18 06:48 Dose: Not Given Lisinopril (Prinivil) 5 mg PO DAILY [facility] Metoprolol Succinate (Toprol Xl -) 100 mg PO DAILY [facility] Last Admin: 06/02/18 10:41 Dose: 100 mg Pantoprazole Sodium (Protonix Iv) 40 mg IVPUSH BID [facility] Last Admin: 06/02/18 10:41 Dose: 40 mg Polyethylene Glycol (Miralax (For Daily Use) -) 17 gm PO DAILY [facility] Last Admin: 06/02/18 15:17 Dose: Not Given Polyethylene Glycol/Electrolytes (Golytely Solution -) 4,000 ml PO ONCE ONE Stop: 06/05/18 18:01 Senna (Senna -) 1 tab PO HS [facility] Last Admin: 06/01/18 21:02 Dose: Not Given Tamsulosin HCl (Flomax -) 0.4 mg PO DAILY@0830 [facility] Last Admin: 06/02/18 10:41 Dose: 0.4 mg - Objective Vital Signs: Vital Signs Temperature 98.1 F 06/02/18 14:00 Pulse Rate 68 06/02/18 14:00 Respiratory Rate 18 06/02/18 10:07 Blood Pressure 117/69 06/02/18 14:00 O2 Sat by Pulse Oximetry (%) 7 L 06/02/18 10:07 Labs: CBC, BMP 06/02/18 05:30 06/02/18 05:30 INR, PTT INR 1.15 (0.83-1.09) H 06/02/18 05:30 Assessment/Plan 67 year-old man, smoker, with a PMHx of HTN, DM, PVD, s/p left BKA, COPD, CKD, anemia on neupogen presented to the ER 05/29/2018 with worsening SOB. The patient began to feel SOB 2 days ago and progressively worsened. He called EMS after one episode of acute SOB in the middle of the night. He had short lasting chest pain during acute SOB. He was found to have severe anemia and received 3 units transfusion with disproportional increased H+H. His troponin is mildly elevated. Seen by GI. EGD and colonoscopy planned. ECG 05/29/2018 revealed sinus rhythm with LAD, RBBB and lateral ST-T changes, suggestive of ischemia. Echocardiogram 05/30/2018 showed normal LV size, wall motion and systolic function. Normal RV. Borderline LA dilatation. Moderate with SADAF = 0.93cm2, PG = 33.3 mmHg, MG = 21.3 mmHg. Mild to moderate MR. No pericardial effusion. Tele showed sinus with frequent VPCs and NSVT. EGD 06/02/2018 reported negative. Colonoscope not completed. 1) Chest pain with mildly elevated troponin: The patient had predominantly dyspnea with some chest pain during acute SOB. Troponin is mildly elevated in the setting of severe anemia. Echo showed normal LV systolic function without regional wall motion abnormalities. It is type II CO, demand ischemia, not acute coronary syndrome. However, he has ECG evidence ischemia with multiple risk factors of CAD. He is likely has significant underline CAD. -Continue metoprolol and atorvastatin -Restart aspirin after GI work up and H+H stable. -Transfusion as needed prevent severe anemia. -Not a candidate for further ischemic work up at this time. 2) Aortic stenosis: Moderate aortic stenosis with preserved LV systolic function. Observation and follow up echo in 6-12 months. 3) NSVT and frequent VPCs. Conservative cardiac care with beta syed therapy. He has preserved LV systolic function. Out patient cardiac follow up.
--- NOTE | 2018-06-02 15:53 | DS ---
Physical Examination Vital Signs: Vital Signs Temperature 98.1 F 06/02/18 14:00 Pulse Rate 68 06/02/18 14:00 Respiratory Rate 18 06/02/18 10:07 Blood Pressure 117/69 06/02/18 14:00 O2 Sat by Pulse Oximetry (%) 7 L 06/02/18 10:07 Findings/Remarks: The patient is a 67M with a PMH of anemia of unknown cause, DM, HTN, and COPD who presented to the ER with shortness of breath. The patient states that he began to feel short of breath 2 days ago and it has worsened. He states that he woke up in the middle of the night and felt acutely short of breath and called EMS. During this episode, he states that he also had retrosternal CP which radiates to his back, and is no longer present. He admits to some nausea but denies vomiting, fevers, chills, numbness, tingling, or weakness. patient is here from [facility] facility Constitutional: Yes: Well Nourished, No Distress, Calm Cardiovascular: Yes: Regular Rate and Rhythm Respiratory: Yes: Regular Gastrointestinal: Yes: Normal Bowel Sounds, Soft Labs: CBC, BMP 06/02/18 05:30 06/02/18 05:30 Discharge Summary Reason For Visit: PNEUMONIA/ANEMIA Current Active Problems Anemia (Acute) COPD (chronic obstructive pulmonary disease) (Acute) Hypothyroid (Acute) Macrocytic anemia (Acute) Pneumonia (Acute) Renal insufficiency (Acute) Troponin level elevated (Acute) Condition: Stable - Instructions Diet, Activity, Other Instructions: Weekly labs for next 4 weeks Follow up with 1. Richy Horowitz to schedule for colonoscopy 2. Sridevi Haley MD- Nephrology 3. Aldo Cat MD- Pulmonary New meds started: Tamsulosin 0.4 mg po daily Lisinopril 5 mg po daily Discontinue: Aspirin 81 mg Tradjenta 5 mg Folic Acid Referrals: Richy Horowitz MD [Staff Physician] - Wendy Scott MD, MD [Primary Care Provider] - Sridevi Haley MD [Staff Physician] - Aldo Cat MD, MD [Staff Physician] - Disposition: HOME - Home Medications Comprehensive Discharge Medication List: Ambulatory Orders Atorvastatin Ca [Lipitor] 40 mg PO HS 05/29/18 Budesonide/Formeterol Fumarate [SYMBICORT 80/4.5mcg -] 2 inh PO BID 05/29/18 Cyanocobalamin (Vitamin B-12) [Vitamin B-12] 1,000 mcg PO DAILY 05/29/18 Escitalopram Oxalate [Lexapro -] 10 mg PO HS 05/29/18 Gabapentin 100 mg PO TID 05/29/18 Guaifenesin [Mucinex] 600 mg PO BID 05/29/18 Levothyroxine [Synthroid -] 25 mcg PO DAILY 05/29/18 Metoprolol Succinate 100 mg PO DAILY 05/29/18 Multivitamins [Multivit ([facility] Formul[facility])] 1 tab PO DAILY 05/29/18 Polyethylene Glycol 3350 [Miralax 119 gm Btl -] 17 gm PO DAILY 05/29/18 Sennosides [Senna] 8.6 mg PO HS 05/29/18 Tramadol HCl 50 mg PO TID PRN 05/29/18 Lisinopril 5 mg PO DAILY #30 tablet 06/02/18 Tamsulosin HCl 0.4 mg PO DAILY #30 cap.er.24h 06/02/18
[2018-06-03] MEDS ORDERED: LISINOPRIL 5 MG TABLET (FP) PO SCH (10:00)
[2018-06-05] MEDS ORDERED: BISACODYL 5 MG TABLET.DR (FP) PO ONE (11:50)
[2018-06-05] MEDS ORDERED: PEG 3350/NA SULF BICARB CL/KCL 4000 ML SOLN.RECON PO ONE (18:00)
--- NOTE | 2018-06-16 14:33 | EKG ---
Test Reason : Blood Pressure : / mmHG Vent. Rate : 065 BPM Atrial Rate : 065 BPM P-R Int : 202 ms QRS Dur : 140 ms QT Int : 470 ms P-R-T Axes : 069 -68 001 degrees QTc Int : 488 ms NORMAL SINUS RHYTHM LEFT AXIS DEVIATION RIGHT BUNDLE BRANCH BLOCK T WAVE ABNORMALITY, CONSIDER LATERAL ISCHEMIA ABNORMAL ECG WHEN COMPARED WITH ECG OF 29-MAY-2018 16:32, CRITERIA FOR SEPTAL INFARCT ARE NO LONGER PRESENT Confirmed by NEAL FAUSTIN, ARNULFO ([id number]) on 06/16/2018 2:32:55 PM Referred By: KIM WU Confirmed By:ARNULFO DE JESUS MD
== END 2018-06-02 16:14 | disposition home or self-care (01) | DRG 812 ==
LOC: JER 09:43 → JERBED 13:38 → J4W 05-30 18:52
PROVIDERS: ADMIT Family Medicine; ATTEND Family Medicine
PROC: 30233N1 Transfusion of Nonautologous Red Blood Cells into Peripheral Vein, Percutaneous Approach (ICD-10-PCS; 2018-05-29)
PROC: 0DJ08ZZ Inspection of Upper Intestinal Tract, Via Natural or Artificial Opening Endoscopic (ICD-10-PCS; principal; 2018-06-02)
DX: D64.9 Anemia, unspecified (principal); I24.8 Other forms of acute ischemic heart disease; J98.11 Atelectasis; J44.9 Chronic obstructive pulmonary disease, unspecified; I10 Essential (primary) hypertension; E03.9 Hypothyroidism, unspecified; F32.9 Major depressive disorder, single episode, unspecified; E83.51 Hypocalcemia; M41.9 Scoliosis, unspecified; F17.210 Nicotine dependence, cigarettes, uncomplicated; R00.0 Tachycardia, unspecified; I44.0 Atrioventricular block, first degree; I25.10 Atherosclerotic heart disease of native coronary artery without angina pectoris; I45.81 Long QT syndrome; E11.65 Type 2 diabetes mellitus with hyperglycemia; R74.8 Abnormal levels of other serum enzymes; I35.0 Nonrheumatic aortic (valve) stenosis; I45.10 Unspecified right bundle-branch block; I12.9 Hypertensive chronic kidney disease with stage 1 through stage 4 chronic kidney disease, or unspecified chronic kidney disease; E11.22 Type 2 diabetes mellitus with diabetic chronic kidney disease; E11.51 Type 2 diabetes mellitus with diabetic peripheral angiopathy without gangrene; N18.9 Chronic kidney disease, unspecified; Z91.14 Patient's other noncompliance with medication regimen; Z99.81 Dependence on supplemental oxygen; Z89.512 Acquired absence of left leg below knee
CPT/HCPCS: 36415; 36430; 71045-TC-FY; 71250-TC; 76775-TC; 76856-TC; 80048; 80053; 80061; 81003; 81015; 82272; 82550; 82570; 82607; 82728; 82746; 82747; 82803; 82962; 83036; 83540; 83550; 83721; 83735; 83880; 84100; 84155; 84156; 84165; 84439; 84443; 84466; 84484; 85014; 85025; 85044; 85610; 86038; 86850; 86900; 86901; 86922; 87040; 87070; 87205; 88300-TC; 93005; 93010; 93306-TC; 99285-25; J7620; P9038; P9058

== ENCOUNTER 2018-07-13 14:49 | Inpatient (IN) | payer OTHER ==
--- NOTE | 2018-07-13 14:55 | PDOC ---
Rapid Medical Evaluation Time Seen by Provider: 07/13/18 14:52 Medical Evaluation: Allergies Allergy/AdvReac Type Severity Reaction Status Date / Time No Known Allergies Allergy Verified 05/29/18 10:03 07/13/18 14:52 I have performed a brief in-person evaluation of this patient. The patient presents with a chief complaint of: Sent by renal for labs ? elevated K Pertinent physical exam findings: conjunctival pallor. I have ordered the following: EKG, labs, urine The patient will proceed to the ED for further evaluation. Discharge Disposition - Diagnosis Anemia - Referrals - Patient Instructions - Post Discharge Activity
[2018-07-13 15:23] LABS: BASO % 0.8 % (0-2.0); EOS % 1.6 % (0-4.5); HEMATOCRIT 21.4 % (35.4-49); HEMOGLOBIN 7.1 GM/dL (11.7-16.9); LYMPH % 24.7 % (8-40); MCH 34.5 pg (25.7-33.7); MCHC 33.3 g/dl (32.0-35.9); MEAN CELL VOLUME 103.6 fl (80-96); MONO % 26.1 % (3.8-10.2); NEUT % 46.8 % (42.8-82.8); PLATELET COUNT 246 K/MM3 (134-434); RBC 2.07 M/mm3 (4.00-5.60); RDW 21.6 % (11.9-15.9); WHITE BLOOD COUNT 3.3 K/mm3 (4.0-10.0)
[2018-07-13 15:48] LABS: ALBUMIN 3.6 g/dl (3.4-5.0); ALK PHOS 75 U/L (45-117); ANION GAP 8 MMOL/L (8-16); BILIRUBIN,TOTAL 0.7 mg/dL (0.2-1); BLOOD UREA NITROGEN 48 mg/dL (7-18); CALCIUM 8.6 mg/dL (8.5-10.1); CHLORIDE 115 mmol/L (98-107); CO2 26 mmol/L (21-32); CREATININE 2.3 mg/dL (0.55-1.3); GLUCOSE,RANDOM 114 mg/dL (74-106); MAGNESIUM 1.7 mg/dL (1.8-2.4); POTASSIUM 5.8 mmol/L (3.5-5.1); SGOT/AST 12 U/L (15-37); SGPT/ALT 21 U/L (13-61); SODIUM 148 mmol/L (136-145); TOT PROT 7.2 g/dl (6.4-8.2)
[2018-07-13 15:57] LABS: INR 1.13 (0.83-1.09); PROTHROMBIN TIME (PATIENT) 13.4 SEC (9.7-13.0)
[2018-07-13] MEDS ORDERED: CALCIUM GLUCONATE 10% - 1,000 MG/10 ML VIAL IVPB ONE (16:32)
--- NOTE | 2018-07-13 16:37 | PDOC ---
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 The patient denies any chest pain, shortness of breath, abdominal pain , fevers, dysuria, hematuria or any other complaints. The patient denies headaches, nausea, vomiting. and was sent from a routine visit with Nephrology ([facility]). The patient denies any other complaints. 07/13/18 17:56 <Alyssa Nelson - Last Filed: 07/13/18 18:28> - General Chief Complaint: Revisit, Lab Variance Stated Complaint: PCP SENT/BLOOD TEST Time Seen by Provider: 07/13/18 14:52 Past History <Brandi Bailey - Last Filed: 07/13/18 17:41> - Past Medical History COPD: Yes Diabetes: Yes (TYPE II) HTN: Yes Psychiatric Problems: Yes (DEPRESSIVE DISORDER) Thyroid Disease: Yes (HYPO) - Suicide/Smoking/Psychosocial Hx Smoking History: Current every day smoker Have you smoked in the past 12 months: No Number of Cigarettes Smoked Daily: 8 Information on smoking cessation initiated: No 'Breaking Loose' booklet given: 05/30/18 Hx Alcohol Use: No Drug/Substance Use Hx: No Substance Use Type: None Hx Substance Use Treatment: No <Alyssa Nelson - Last Filed: 07/13/18 18:28> - Past Medical History Allergies/Adverse Reactions: Allergies Allergy/AdvReac Type Severity Reaction Status Date / Time No Known Allergies Allergy Verified 05/29/18 10:03 Home Medications: Ambulatory Orders Atorvastatin Ca [Lipitor] 40 mg PO HS 05/29/18 Budesonide/Formeterol Fumarate [SYMBICORT 80/4.5mcg -] 2 inh PO BID 05/29/18 Cyanocobalamin (Vitamin B-12) [Vitamin B-12] 1,000 mcg PO DAILY 05/29/18 Escitalopram Oxalate [Lexapro -] 10 mg PO HS 05/29/18 Gabapentin 100 mg PO TID 05/29/18 Guaifenesin [Mucinex] 600 mg PO BID 05/29/18 Levothyroxine [Synthroid -] 25 mcg PO DAILY 05/29/18 Metoprolol Succinate 100 mg PO DAILY 05/29/18 Multivitamins [Multivit ([facility] Formulary)] 1 tab PO DAILY 05/29/18 Polyethylene Glycol 3350 [Miralax 119 gm Btl -] 17 gm PO DAILY 05/29/18 Sennosides [Senna] 8.6 mg PO HS 05/29/18 Tramadol HCl 50 mg PO TID PRN 05/29/18 Lisinopril 5 mg PO DAILY #30 tablet 06/02/18 Pantoprazole Sodium [Protonix -] 40 mg PO DAILY #30 tablet.ec 06/02/18 Tamsulosin HCl 0.4 mg PO DAILY #30 cap.er.24h 06/02/18 *Physical Exam - Vital Signs Last Vital Signs Temp Pulse Resp BP Pulse Ox 98.6 F 67 16 124/63 100 07/13/18 14:54 07/13/18 14:54 07/13/18 14:54 07/13/18 14:54 07/13/18 14:54 <Brandi Bailey - Last Filed: 07/13/18 17:41> - Vital Signs Last Vital Signs Temp Pulse Resp BP Pulse Ox 98.6 F 67 16 124/63 100 07/13/18 14:54 07/13/18 14:54 07/13/18 14:54 07/13/18 14:54 07/13/18 14:54 - Physical Exam Comments: 07/13/18 17:04 conjuntical pallor pale appearance <Alyssa Nelson - Last Filed: 07/13/18 18:28> ED Treatment Course - LABORATORY CBC & Chemistry Diagram: 07/13/18 15:00 07/13/18 15:00 - ADDITIONAL ORDERS Additional order review: Laboratory Results 07/13/18 07/13/18 07/13/18 15:00 15:00 15:00 WBC RBC Hgb Hct MCV MCH MCHC RDW Plt Count MPV Absolute Neuts (auto) Neutrophils % Lymphocytes % Monocytes % Eosinophils % Basophils % Nucleated RBC % PT with INR 13.40 H INR 1.13 H Sodium 148 H Potassium 5.8 H Chloride 115 H Carbon Dioxide 26 Anion Gap 8 BUN 48 H Creatinine 2.3 H Creat Clearance w eGFR 28.50 Random Glucose 114 H Calcium 8.6 Magnesium 1.7 L Total Bilirubin 0.7 AST 12 L ALT 21 Alkaline Phosphatase 75 Creatine Kinase 39 Troponin I < 0.02 Total Protein 7.2 Albumin 3.6 Blood Type A POSITIVE Antibody Screen Negative 07/13/18 15:00 WBC 3.3 L RBC 2.07 L Hgb 7.1 L Hct 21.4 L D MCV 103.6 H MCH 34.5 H MCHC 33.3 RDW 21.6 H Plt Count 246 MPV 10.0 Absolute Neuts (auto) 1.5 Neutrophils % 46.8 D Lymphocytes % 24.7 D Monocytes % 26.1 H Eosinophils % 1.6 Basophils % 0.8 Nucleated RBC % 0 PT with INR INR Sodium Potassium Chloride Carbon Dioxide Anion Gap BUN Creatinine Creat Clearance w eGFR Random Glucose Calcium Magnesium Total Bilirubin AST ALT Alkaline Phosphatase Creatine Kinase Troponin I Total Protein Albumin Blood Type Antibody Screen 07/13/18 15:00 RBC 2.07 L MCV 103.6 H MCHC 33.3 RDW 21.6 H MPV 10.0 Neutrophils % 46.8 D Lymphocytes % 24.7 D Monocytes % 26.1 H Eosinophils % 1.6 Basophils % 0.8 <Brandi Bailey - Last Filed: 07/13/18 17:41> - LABORATORY CBC & Chemistry Diagram: 07/13/18 15:00 07/13/18 15:00 - ADDITIONAL ORDERS Additional order review: Laboratory Results 07/13/18 07/13/18 07/13/18 15:00 15:00 15:00 PT with INR 13.40 H INR 1.13 H Sodium 148 H Potassium 5.8 H Chloride 115 H Carbon Dioxide 26 Anion Gap 8 BUN 48 H Creatinine 2.3 H Creat Clearance w eGFR 28.50 Random Glucose 114 H Calcium 8.6 Magnesium 1.7 L Total Bilirubin 0.7 AST 12 L ALT 21 Alkaline Phosphatase 75 Creatine Kinase 39 Troponin I < 0.02 Total Protein 7.2 Albumin 3.6 Blood Type A POSITIVE Antibody Screen Negative 07/13/18 15:00 RBC 2.07 L MCV 103.6 H MCHC 33.3 RDW 21.6 H MPV 10.0 Neutrophils % 46.8 D Lymphocytes % 24.7 D Monocytes % 26.1 H Eosinophils % 1.6 Basophils % 0.8 <Alyssa Nelson - Last Filed: 07/13/18 18:28> Medical Decision Making - Medical Decision Making 07/13/18 17:22 67 year old man with history of anemia of unknown cause, CKD, DM, HTN, 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 The patient denies any chest pain, shortness of breath, abdominal pain, fevers, dysuria, hematuria or any other complaints and was sent from a routine visit with Nephrology ([facility]). The patient denies any other complaints. DDX including but not limited to: Anemia: chronic undifferentiated anemia vs GIB Hyperkalemia: acute on chronic CKD vs ACEI use W/U: - cbc TX: - ED Course: The patient is weak appearing but stable. 07/13/18 17:23 Last Kidney US (05/31/18): normal kidney morphology and urinary bladder with no evidence of hydronephrosis. Large PVR, prostate enlargement. Likely symptoms of anemia and hyperkalemia 2/2 acute on chronic CKD. Possible EPO dysfunction. 07/13/18 17:55 <Alyssa Nelson - Last Filed: 07/13/18 18:28> *DC/Admit/Observation/Transfer <Brandi Bailey - Last Filed: 07/13/18 17:41> - Discharge Dispostion Decision to Admit order: Yes <Alyssa Nelson - Last Filed: 07/13/18 18:28> Diagnosis at time of Disposition: Anemia, CKD (chronic kidney disease), Hypernatremia, Hyponatremia - Discharge Dispostion Condition at time of disposition: Stable - Referrals Referrals: Wendy Scott MD, MD [Primary Care Provider] - - Patient Instructions - Post Discharge Activity
[2018-07-13] MEDS ORDERED: DEXTROSE 50%-WATER - 25 GM/50 ML VIAL IVPUSH ONE (16:44)
[2018-07-13] MEDS ORDERED: SODIUM CHLORIDE 1,000 ML IV SCH (16:45)
[2018-07-13] MEDS ORDERED: INSULIN REGULAR HUMAN 100 UNITS/ML *VIAL IVPUSH ONE (16:45)
[2018-07-13] MEDS ORDERED: CALCIUM GLUCONATE 10% - 1,000 MG/10 ML VIAL IVPUSH ONE (17:05)
[2018-07-13] MEDS ORDERED: SODIUM CHLORIDE 0.9% 500 ML INFUS.BAG IV ONE (17:40)
--- NOTE | 2018-07-13 17:41 | PDOC ---
Attending Attestation - Resident Resident Name: Alyssa Nelson - ED Attending Attestation I have performed the following: I have examined & evaluated the patient, The case was reviewed & discussed with the resident, I agree w/resident's findings & plan - HPI HPI: 07/13/18 19:19 Mr. Rose is a 67 year old male with past medical history significant for HI , HTN, DM2, Hypothyroidism, COPD and anemia was sent to the emergency department by Dr. Haley s/p abnormal lab results. The patient reports he was following up with the doctor for a routine f/u. During the visit, patients blood work was done, which was significant for elevated potassium and anemia. Denies fever, chills, hematochezia, melena, nausea, vomiting, cough, hemoptysis , hematemesis, abdominal pain, chest pain, shortness of breath. Allergies: NKA Social history: Patient is current everyday smoker, no past or present use of alcohol or recreational drugs. Surgical history: None reported PCP: Cliff Scott MD. Slate Roofer Helper: Dr. Haley. - Physicial Exam PE: 07/13/18 19:19 NAD, well appearing, MMM, pale conjunctiva, anicteric; neck supple. lungs clear , RRR, abdomen soft nontender. no focal neuro deficits. No peripheral edema. pale color, warm to touch, WWP. left BKA with prosthesis noted. rectal exam by resident, erikaaijean pending - Medical Decision Making 07/13/18 19:20 67 YOM presenting with acute on chronic anemia and worsening renal insufficiency , electrolyte derangements. Vital signs reviewed, wnl. Prior notes reviewed, including admissions, discharges and consultations. laboratory results and imaging reviewed, basic labs and lytes wnl, notable for hypernatremia and hypokalemia. Cr increasing to 2.3, changed from prior. acute on chronic anemia, drop down to Hb 7.1, hct 21.7. txs sent UA_neg for infection or proteins. CXR_no acute pathology, hyperaeration, prominent mediastinum. no edema or infiltrate. EKG normal sinus rhythm, first degree AV block and SC prolongation. borderline widened QRS, ST segments and morphology normal. peaked T waves, non specific TWI in precordial leads. troponin and cards panel negative. ED course: no acute events, remained stable and well appearing. Clinically improved after interventions, including calcium, IVF, albuterol nebs, insulin and dextrose; repeat K improved. hold lasix with new renal insufficiency. Dispo: Admit for acute on chronic anemia, hypernatremia and hypokalemia likely from worsening renal insufficiency.. Discussed results and management plan with pt and family member at bedside, agree with impression and plan 07/19/18 05:54 Heart Score/ECG Review - ECG Impressions Normal ECG: No Comment:: 07/13/18 19:44 EKG normal sinus rhythm, first degree AV block and SC prolongation. borderline widened QRS, ST segments and morphology normal. peaked T waves, non specific TWI in precordial leads.
[2018-07-13] MEDS: ALBUTEROL SO4 2.5/IPRATROPIUM 0.5 INH SOL 3 ML VIAL.NEB. NEB SCH ×4 (18:20→19:00)
[2018-07-13 18:28] LABS: URINE APPEARANCE CLEAR; URINE BILIRUBIN NEGATIVE (<2.0 mg/dL); URINE COLOR YELLOW; URINE GLUCOSE (UA) NEGATIVE (NEGATIVE); URINE KETONE NEGATIVE (NEGATIVE); URINE LEUK ESTERASE NEGATIVE (NEGATIVE); URINE NITRITE NEGATIVE (NEGATIVE); URINE PROTEIN 3+ (NEGATIVE); URINE UROBILINOGEN NEGATIVE mg/dL (0.2-1.0)
[2018-07-13] MEDS ORDERED: DEXTROSE 50%-WATER 25 GM/50 ML DISP.SYRIN ONE (18:35)
[2018-07-13] MEDS ORDERED: CALCIUM CHLORIDE 1 GM/10 ML *DISP.SYRIN ONE (18:36)
[2018-07-13] MEDS ORDERED: INSULIN REGULAR HUMAN 100 UNITS/ML *VIAL ONE (18:38)
[2018-07-13 18:40] LABS: URINE BACTERIA RARE /hpf (NONE SEEN); URINE MUCUS RARE
[2018-07-13] MEDS ORDERED: ONDANSETRON 4 MG/2 ML VIAL IVPUSH ONE (19:21)
[2018-07-13 19:25] LABS: ALBUMIN 3.3 g/dl (3.4-5.0); ALK PHOS 68 U/L (45-117); ANION GAP 5 MMOL/L (8-16); BILIRUBIN,TOTAL 0.7 mg/dL (0.2-1); BLOOD UREA NITROGEN 49 mg/dL (7-18); CALCIUM 8.2 mg/dL (8.5-10.1); CHLORIDE 107 mmol/L (98-107); CO2 25 mmol/L (21-32); CREATININE 2.2 mg/dL (0.55-1.3); GLUCOSE,RANDOM 106 mg/dL (74-106); POTASSIUM 5.5 mmol/L (3.5-5.1); SGOT/AST 12 U/L (15-37); SGPT/ALT 20 U/L (13-61); SODIUM 137 mmol/L (136-145); TOT PROT 6.6 g/dl (6.4-8.2)
[2018-07-13 20:16] LABS: ANISOCYTOSIS 2+
[2018-07-13 20:17] LABS: PLATELET ESTIMATE ADEQUATE; RETICULOCYTES 0.91 % (0.5-1.5)
[2018-07-13] MEDS ORDERED: ONDANSETRON 4 MG/2 ML VIAL ONE (20:31)
--- NOTE | 2018-07-13 21:08 | HP ---
CHIEF COMPLAINT: weakness PCP: Forest Scott HISTORY OF PRESENT ILLNESS: This is a 67 year old male with a past medical history significant for CKD, DM, anemia, HTN who was sent by his renal doctor for anemia and hyperkalemia. He reports generalized weakness x 2 weeks. Denies CP but does report SOB when walking longer distances. Denies palpitaions. 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 Social History: Smokin cig / day Alcohol: pt denies Drugs: pt denies Family History: mother age 91, DM, COPD father in his late 60s, unknown type of CA 2 sisters, 1 with BrCA Allergies No Known Allergies Allergy (Verified 05/29/18 10:03) HOME MEDICATIONS: 3 Medication Instructions Recorded Atorvastatin Ca [Lipitor] 40 mg PO HS 05/29/18 Budesonide/Formeterol Fumarate 2 inh PO BID 05/29/18 [SYMBICORT 80/4.5mcg -] Cyanocobalamin (Vitamin B-12) 1,000 mcg PO DAILY 05/29/18 [Vitamin B-12] Escitalopram Oxalate [Lexapro -] 10 mg PO HS 05/29/18 Gabapentin 100 mg PO TID 05/29/18 Guaifenesin [Mucinex] 600 mg PO BID 05/29/18 Levothyroxine [Synthroid -] 25 mcg PO DAILY 05/29/18 Metoprolol Succinate 100 mg PO DAILY 05/29/18 Multivitamins [Multivit ([facility] 1 tab PO DAILY 05/29/18 Formulary)] Polyethylene Glycol 3350 [Miralax 17 gm PO DAILY 05/29/18 119 gm Btl -] Sennosides [Senna] 8.6 mg PO HS 05/29/18 Tramadol HCl 50 mg PO TID PRN 05/29/18 Lisinopril 5 mg PO DAILY #30 tablet 06/02/18 Pantoprazole Sodium [Protonix -] 40 mg PO DAILY #30 tablet.ec 06/02/18 Tamsulosin HCl 0.4 mg PO DAILY #30 cap.er.24h 06/02/18 REVIEW OF SYSTEMS CONSTITUTIONAL: Present: generalized weakness, malaise Absent: fever, chills, diaphoresis, loss of appetite, weight change HEENT: Absent: rhinorrhea, nasal congestion, throat pain, throat swelling, difficulty swallowing, mouth swelling, ear pain, eye pain, visual changes CARDIOVASCULAR: Absent: chest pain, syncope, palpitations, irregular heart rate, lightheadedness , peripheral edema RESPIRATORY: Present: dyspnea with exertion Absent: cough, shortness of breath, orthopnea, wheezing, stridor, hemoptysis GASTROINTESTINAL: Absent: abdominal pain, abdominal distension, nausea, vomiting, diarrhea, constipation, melena, hematochezia GENITOURINARY: Absent: dysuria, frequency, urgency, hesitancy, hematuria, flank pain, genital pain MUSCULOSKELETAL: Absent: myalgia, arthralgia, joint swelling, back pain, neck pain SKIN: Absent: rash, itching, pallor HEMATOLOGIC/IMMUNOLOGIC: Absent: easy bleeding, easy bruising, lymphadenopathy, frequent infections ENDOCRINE: Absent: unexplained weight gain, unexplained weight loss, heat intolerance, cold intolerance NEUROLOGIC: Absent: headache, focal weakness or paresthesias, dizziness, unsteady gait, seizure, mental status changes, bladder or bowel incontinence PSYCHIATRIC: Absent: anxiety, depression, suicidal or homicidal ideation, hallucinations. PHYSICAL EXAMINATION Vital Signs - 24 hr 3 07/13/18 14:54 Temperature 98.6 F Pulse Rate 67 Respiratory 16 Rate Blood Pressure 124/63 O2 Sat by Pulse 100 Oximetry (%) GENERAL: Awake, alert, and fully oriented, in no acute distress. Pale in appearance. HEAD: Normal with no signs of trauma. EYES: Pupils equal, round and reactive to light, extraocular movements intact, sclera anicteric, conjunctiva PALE. No lid lag. EARS, NOSE, THROAT: Ears normal, nares patent, oropharynx clear without exudates. Moist mucous membranes. NECK: Normal range of motion, supple without lymphadenopathy, JVD, or masses. LUNGS: Breath sounds equal, clear to auscultation bilaterally. No wheezes, and no crackles. No accessory muscle use. HEART: Regular rate and rhythm, normal S1 and S2 without murmur, rub or gallop. ABDOMEN: Soft, nontender, not distended, normoactive bowel sounds, no guarding, no rebound, no masses. No hepatomegaly or splenomegaly. MUSCULOSKELETAL: Normal range of motion at all joints. No bony deformities or tenderness. No CVA tenderness. UPPER EXTREMITIES: 2+ pulses, warm, well-perfused. No cyanosis. No clubbing. No peripheral edema. LOWER EXTREMITIES: 2+ pulses, warm, well-perfused. No calf tenderness. No peripheral edema. NEUROLOGICAL: Cranial nerves II-XII intact. Normal speech. Normal gait. PSYCHIATRIC: Cooperative. Good eye contact. Appropriate mood and affect. SKIN: Warm, dry, normal turgor, no rashes or lesions noted, normal capillary refill. Laboratory Results - last 24 hr 3 07/13/18 07/13/18 07/13/18 15:00 15:00 15:00 WBC 3.3 L RBC 2.07 L Hgb 7.1 L Hct 21.4 L D MCV 103.6 H MCH 34.5 H MCHC 33.3 RDW 21.6 H Plt Count 246 MPV 10.0 Absolute Neuts (auto) 1.5 Neutrophils % 46.8 D Neutrophils % (Manual) 28.0 L D Band Neutrophils % 11.0 Lymphocytes % 24.7 D Lymphocytes % (Manual) 35.0 D Monocytes % 26.1 H Monocytes % (Manual) 18 H Eosinophils % 1.6 Eosinophils % (Manual) 3.0 Basophils % 0.8 Basophils % (Manual) 0.0 Nucleated RBC % 0 Metamyelocytes 0 Platelet Estimate Adequate Anisocytosis 2+ Retic Count 0.91 PT with INR 13.40 H INR 1.13 H Sodium 148 H Potassium 5.8 H Chloride 115 H Carbon Dioxide 26 Anion Gap 8 BUN 48 H Creatinine 2.3 H Creat Clearance w eGFR 28.50 Random Glucose 114 H Calcium 8.6 Magnesium 1.7 L Total Bilirubin 0.7 AST 12 L ALT 21 Alkaline Phosphatase 75 Creatine Kinase 39 Troponin I < 0.02 B-Natriuretic Peptide 7391.9 H Total Protein 7.2 Albumin 3.6 Urine Color Urine Appearance Urine pH Ur Specific [place] Urine Protein Urine Glucose (UA) Urine Ketones Urine Blood Urine Nitrite Urine Bilirubin Urine Urobilinogen Ur Leukocyte Esterase Urine WBC (Auto) Urine RBC (Auto) Urine Bacteria Urine Mucus Stool Occult Blood Blood Type A POSITIVE Antibody Screen Negative 3 Urine Color Yellow 07/13/18 18:07 Urine Appearance Clear 07/13/18 18:07 Urine pH 5.0 (5.0-8.0) 07/13/18 18:07 Ur Specific [place] 1.015 (1.010-1.035) 07/13/18 18:07 Urine Protein 3+ (NEGATIVE) H 07/13/18 18:07 Urine Glucose (UA) Negative (NEGATIVE) 07/13/18 18:07 Urine Ketones Negative (NEGATIVE) 07/13/18 18:07 Urine Blood Negative (NEGATIVE) 07/13/18 18:07 Urine Nitrite Negative (NEGATIVE) 07/13/18 18:07 Urine Bilirubin Negative (<2.0 mg/dL) 07/13/18 18:07 Ur Leukocyte Esterase Negative (NEGATIVE) 07/13/18 18:07 Urine WBC (Auto) 1 07/13/18 18:07 Urine RBC (Auto) 1 07/13/18 18:07 Urine Bacteria Rare /hpf (NONE SEEN) 07/13/18 18:07 Urine Mucus Rare 07/13/18 18:07 3 07/13/18 07/13/18 07/13/18 18:07 18:07 19:14 WBC RBC Hgb Hct MCV MCH MCHC RDW Plt Count MPV Absolute Neuts (auto) Neutrophils % Neutrophils % (Manual) Band Neutrophils % Lymphocytes % Lymphocytes % (Manual) Monocytes % Monocytes % (Manual) Eosinophils % Eosinophils % (Manual) Basophils % Basophils % (Manual) Nucleated RBC % Metamyelocytes Platelet Estimate Anisocytosis Retic Count PT with INR INR Sodium 137 Potassium 5.7 H 5.5 H Chloride 107 Carbon Dioxide 25 Anion Gap 5 L BUN 49 H Creatinine 2.2 H Creat Clearance w eGFR 30.00 Random Glucose 106 Calcium 8.2 L Magnesium Total Bilirubin 0.7 AST 12 L ALT 20 Alkaline Phosphatase 68 Creatine Kinase Troponin I B-Natriuretic Peptide Total Protein 6.6 Albumin 3.3 L Urine Color Urine Appearance Urine pH Ur Specific [place] Urine Protein Urine Glucose (UA) Urine Ketones Urine Blood Urine Nitrite Urine Bilirubin Urine Urobilinogen Ur Leukocyte Esterase Urine WBC (Auto) Urine RBC (Auto) Urine Bacteria Urine Mucus Stool Occult Blood Negative Blood Type Antibody Screen ECG sinus rhythm with 1st degree AV block with PACs vent rate 66, QTC [address] segments V4-V6, present on old ECG Poor baseline, difficult to interpret Radiology Reports CXR portable final read pending; no obvious infiltrates or effusions ASSESSMENT/PLAN: 67yM with PMH HTN, DM, CKD, anemia, COPD, depression sent to ED by Dr. Haley for anemia and hyperkalemia. Anemia - H/H 7.1/21.4 - iron deficiency on previous workup - transfuse 2uPRBC, repeat CBC one hour after 1st unit hyperkalemia - given insulin dextrose and calcium IV in ed - kayexalate 30gm ordered - repeat BMP in am CKD - creatinine at baseline - renal consult - avoid nephrotoxic agents - renal diet HTN - cont home toprol, lisinopril HLD - cont home lipitor COPD - home meds nonformulary, convert to formulary equivalents DVT PPX - hold heparin for now due to anemia FEN - tolerating po, encourage po intake - BMP in am - renal diet as tolerated Dispo: pt currently requires further inpatient management of his emergent condition. Visit type - Emergency Visit Emergency Visit: Yes ED Registration Date: 07/13/18 Care time: The patient presented to the Emergency Department on the above date and was hospitalized for further evaluation of their emergent condition. - New Patient This patient is new to me today: Yes Date on this admission: 07/13/18 - Critical Care Critical Care patient: No
[2018-07-13] MEDS ORDERED: SODIUM POLYSTYRENE SULFONATE 15 GM/60 ML BOTTLE PO ONE (21:11)
[2018-07-13] MEDS ORDERED: SODIUM POLYSTYRENE SULFONATE 15 GM/60 ML BOTTLE ONE (22:19)
[2018-07-13] MEDS ORDERED: traMADol HCL 50 MG TABLET PO PRN (22:24)
[2018-07-13] MEDS ORDERED: GABAPENTIN 100 MG CAPSULE (FP) ONE (23:01)
[2018-07-13] MEDS: GABAPENTIN 100 MG CAPSULE (FP) PO SCH (23:07)
[2018-07-14 02:00] VITALS: BMI 23.1
[2018-07-14] MEDS: GABAPENTIN 100 MG CAPSULE (FP) PO SCH ×3 (05:30→21:35)
[2018-07-14] MEDS: LEVOTHYROXINE NA 25 MCG TABLET (FP) PO SCH (06:08)
[2018-07-14] MEDS ORDERED: PT OWN MED DRAWER 7, Y5N ONE (09:25)
[2018-07-14 09:33] LABS: BASO % 0.7 % (0-2.0); HEMATOCRIT 25.8 % (35.4-49); HEMOGLOBIN 8.9 GM/dL (11.7-16.9); LYMPH % 22.1 % (8-40); MCH 33.4 pg (25.7-33.7); MCHC 34.6 g/dl (32.0-35.9); MEAN CELL VOLUME 96.4 fl (80-96); MEAN PLT VOLUME 9.6 fl (7.5-11.1); MONO % 23.5 % (3.8-10.2); NEUT % 51.7 % (42.8-82.8); PLATELET COUNT 234 K/MM3 (134-434); RBC 2.67 M/mm3 (4.00-5.60); RDW 21.9 % (11.9-15.9); WHITE BLOOD COUNT 3.6 K/mm3 (4.0-10.0)
[2018-07-14] MEDS: POLYETHYLENE GLYCOL 3350 119 GM BTL PO SCH ×2 (09:33→09:41)
[2018-07-14] MEDS: TAMSULOSIN HCL 0.4 MG CAP PO SCH (09:33)
[2018-07-14] MEDS: PANTOPRAZOLE 40 MG TABLET (FP) PO SCH (09:34)
[2018-07-14] MEDS: LISINOPRIL 5 MG TABLET (FP) PO SCH (09:34)
[2018-07-14] MEDS: TIOTROPIUM BROMIDE 2.5 MCG (SPIRIVA) RESPIMAT INHALER IH SCH (09:34)
[2018-07-14] MEDS: MULTIVITAMINS (DAILY MVI) TABLET (FP) PO SCH (09:35)
[2018-07-14] MEDS: BUDESONIDE/FORMETEROL FUMARATE 80/4.5 mcg INHALER IH SCH ×2 (09:35→21:35)
[2018-07-14] MEDS: CYANOCOBALAMIN 1,000 MCG TABLET (FP) PO SCH (09:36)
--- NOTE | 2018-07-14 09:36 | PN ---
Progress Note (short form) - Note Progress Note: PATIENTS PRIMARY DOCTOR IN [place] UNDER MY NAME ATTENDING. I DO NOT KNOW THIS PATIENT AND WILL TRANSFER TO HOSPITALISTS.
[2018-07-14] MEDS ORDERED: ESCITALOPRAM OXALATE 10 MG TABLET (FP) PO SCH (10:00)
[2018-07-14] MEDS ORDERED: PNEUMOC 13-VAL CONJ-DIP CRM/PF 0.5 ML DISP.SYRIN IM ONE (10:00)
--- NOTE | 2018-07-14 12:16 | EKG ---
Test Reason : Blood Pressure : / mmHG Vent. Rate : 066 BPM Atrial Rate : 066 BPM P-R Int : 222 ms QRS Dur : 128 ms QT Int : 442 ms P-R-T Axes : 063 -71 -70 degrees QTc Int : 463 ms SINUS RHYTHM WITH 1ST DEGREE A-V BLOCK WITH PREMATURE SUPRAVENTRICULAR COMPLEXES LEFT AXIS DEVIATION RIGHT BUNDLE BRANCH BLOCK T WAVE ABNORMALITY, CONSIDER INFEROLATERAL ISCHEMIA ABNORMAL ECG WHEN COMPARED WITH ECG OF 30-MAY-2018 10:25, PREMATURE SUPRAVENTRICULAR COMPLEXES ARE NOW PRESENT INVERTED T WAVES HAVE REPLACED NONSPECIFIC T WAVE ABNORMALITY IN INFERIOR LEADS Confirmed by ARNULFO DE JESUS MD ([id number]) on 07/14/2018 12:16:32 PM Referred By: Confirmed By:ARNULFO DE JESUS MD
[2018-07-14 12:42] LABS: ANION GAP 0 MMOL/L (8-16); BLOOD UREA NITROGEN 41 mg/dL (7-18); CALCIUM 8.2 mg/dL (8.5-10.1); CHLORIDE 112 mmol/L (98-107); CO2 25 mmol/L (21-32); CREATININE 1.9 mg/dL (0.55-1.3); GLUCOSE,RANDOM 82 mg/dL (74-106); MAGNESIUM 1.6 mg/dL (1.8-2.4); PHOSPHOROUS 3.5 mg/dL (2.5-4.9); SODIUM 137 mmol/L (136-145)
[2018-07-14 12:49] LABS: ACANTHOCYTES 1+; ANISOCYTOSIS 2+; MACROCYTOSIS 0; OVALOCYTE 1+; PLATELET ESTIMATE NORMAL
--- NOTE | 2018-07-14 15:20 | ECHO ---
Name: MARK JOHNSTON Exam:Adult Echocardiogram Study Date: 07/14/2018 11:41 AM Age: 67 yrs Reason For Study: check ef% Height: 72 in Weight: 170 lb BSA: 2.0 m2 MMode/2D Measurements & Calculations RVDd: 3.1 cm Ao root diam: 3.2 cm IVSd: 1.1 cm LA dimension: 4.8 cm LVIDd: 6.4 cm ACS: 0.73 cm LVIDs: 4.9 cm LVPWd: 1.0 cm IVSs: 1.4 cm LVPWs: 1.2 cm EDV(Teich): 210.4 ml ESV(Angeline): 111.6 ml LVOT diam: 2.0 cm Doppler Measurements & Calculations MV E max gaston: 115.0 cm/sec Ao V2 max: 228.8 cm/sec MV A max gaston: 84.7 cm/sec Ao max P.0 mmHg MV E/A: 1.4 Ao V2 mean: 170.9 cm/sec Ao mean P.0 mmHg Ao V2 VTI: 55.3 cm SADAF(I,D): 0.98 cm2 SADAF(V,D): 0.93 cm2 LV V1 max P.7 mmHg MR max gaston: 560.3 cm/sec LV V1 mean P.1 mmHg MR max P.6 mmHg LV V1 max: 65.5 cm/sec LV V1 mean: 49.4 cm/sec LV V1 VTI: 16.7 cm SV(LVOT): 54.2 ml Med Peak E' Gaston: 5.0 cm/sec Med E/e': 23.1 Lat Peak E' Gaston: 8.7 cm/sec Lat E/e': 13.3 Procedure A complete two-dimensional transthoracic echocardiogram was performed (2D, M-mode, Doppler and color flow Doppler). Left Ventricle The left ventricle is moderately dilated. Left ventricular systolic function is mildly reduced. Eject ion Fraction = 45-50%. There is mild global hypokinesis of the left ventricle. Right Ventricle The right ventricle is normal in size and function. Atria Normal left and right atrial size and function. Mitral Valve There is moderate mitral regurgitation. Tricuspid Valve No tricuspid regurgitation. There was insufficient TR detected to calculate RV systolic pressure. Aortic Valve Mild to moderate valvular aortic stenosis. No aortic regurgitation is present. Pulmonic Valve There is no pulmonic valvular regurgitation. Great Vessels The aortic root is normal size. Pericardium/Pleura There is no pericardial effusion. Interpretation Summary The left ventricle is moderately dilated. Left ventricular systolic function is mildly reduced. There is mild global hypokinesis of the left ventricle. The right ventricle is normal in size and function. There is moderate mitral regurgitation. Mild to moderate valvular aortic stenosis. MD Jamal Molina 07/14/2018 03:19 PM
--- NOTE | 2018-07-14 15:38 | CONSULT ---
Consult Consult Specialty:: Nephrology Reason for Consultation:: hyperkalemia - History of Present Illness Chief Complaint: sent in for hyperkalemia History of Present Illness: Pt is a 67 year old male with pmhx of CKD, anemia, DM, HTN, COPD and foot amputation who I sent in for hyperkalemia. He was getting his renal workup in my office. He was hyperkalemic in the ER as well. Pt says he has been eating bananas and drinking orange juice daily. He lives in an assisted living and they do not have special diets. He denies chest pain, shortness of breath or palpitations. He is awake and alert. - History Source History Provided By: Patient, Medical Record - Past Medical History Cardio/Vascular: Yes: HTN Pulmonary: Yes: COPD Renal/: Yes: Renal Inusuff, Other (hyperkalemia) Endocrine: Yes: Diabetes Mellitus, Hypothyroidism - Alcohol/Substance Use Hx Alcohol Use: No History of Substance Use: reports: None - Smoking History Smoking history: Current every day smoker Have you smoked in the past 12 months: Yes Aproximately how many cigarettes per day: 6 - Social History Usual Living Arrangement: Assisted Living History of Recent Travel: No Home Medications - Allergies Allergies/Adverse Reactions: Allergies Allergy/AdvReac Type Severity Reaction Status Date / Time No Known Allergies Allergy Verified 05/29/18 10:03 - Home Medications Home Medications: Ambulatory Orders Atorvastatin Ca [Lipitor] 40 mg PO HS 07/13/18 Cyanocobalamin [Vitamin B12 -] 1,000 mcg PO DAILY 07/13/18 Epoetin Blue [Procrit -] 20,000 unit IJ WEEKLY 07/13/18 Escitalopram Oxalate [Lexapro -] 10 mg PO DAILY 07/13/18 Fluticasone/Salmeterol [Advair 250-50 Diskus] 1 each IH BID 07/13/18 Gabapentin [Neurontin -] 100 mg PO Q8H PRN 07/13/18 Guaifenesin [Mucinex] 600 mg PO BID 07/13/18 Guaifenesin/Dextromethorphan [Robafen Dm Cough Liquid] 10 ml PO Q6H PRN Levothyroxine [Synthroid -] 25 mcg PO DAILY 07/13/18 Lisinopril 5 mg PO DAILY 07/13/18 Metoprolol Succinate 100 mg PO DAILY 07/13/18 Multivitamin [One Daily] 1 each PO DAILY 07/13/18 Pantoprazole Sodium 40 mg PO DAILY 07/13/18 Polyethylene Glycol 3350 [Laxaclear] 17 gm PO DAILY 07/13/18 Sennosides [Senna -] 1 tab PO HS 07/13/18 Silver Sulfadiazine 1% Top Cr [Silvadene -] 1 applic TP DAILY 07/13/18 Tamsulosin HCl [Flomax -] 0.4 mg PO DAILY 07/13/18 Tiotropium Br/Olodaterol HCl [Stiolto Respimat Inhal [place]] 2 puff IH BID Tramadol HCl 50 mg PO TID PRN 07/13/18 Family Disease History - Family Disease History Family History: Denies Review of Systems - Review of Systems Constitutional: reports: No Symptoms Eyes: reports: No Symptoms HENT: reports: No Symptoms Neck: reports: No Symptoms Cardiovascular: reports: No Symptoms Respiratory: reports: No Symptoms Gastrointestinal: reports: No Symptoms Genitourinary: reports: No Symptoms Musculoskeletal: reports: No Symptoms Integumentary: reports: No Symptoms Neurological: reports: No Symptoms Endocrine: reports: No Symptoms Hematology/Lymphatic: reports: No Symptoms Psychiatric: reports: No Symptoms Physical Exam Vital Signs: Vital Signs Temperature 98.3 F 07/14/18 14:02 Pulse Rate 67 07/14/18 14:02 Respiratory Rate 20 07/14/18 14:02 Blood Pressure 129/58 L 07/14/18 14:02 O2 Sat by Pulse Oximetry (%) 96 07/14/18 09:00 Constitutional: Yes: Calm Eyes: Yes: Conjunctiva Clear HENT: Yes: Atraumatic Neck: Yes: Supple Cardiovascular: Yes: S1, S2 Respiratory: Yes: Wheezes Gastrointestinal: Yes: Soft Renal/: Yes: WNL Musculoskeletal: Yes: Other (amputation) Edema: No Neurological: Yes: Oriented Psychiatric: Yes: Oriented Labs: CBC, BMP 07/14/18 09:05 07/14/18 09:05 Laboratory Tests 07/13/18 07/13/18 07/13/18 15:00 18:07 18:07 Potassium 5.8 H 5.7 H 5.5 H 07/14/18 09:05 Potassium 5.0 Imaging - Results Chest X-ray: Report Reviewed Problem List - Problems (1) Hyperkalemia Code(s): E87.5 - HYPERKALEMIA (2) Anemia Code(s): D64.9 - ANEMIA, UNSPECIFIED (3) CKD (chronic kidney disease) Code(s): N18.9 - CHRONIC KIDNEY DISEASE, UNSPECIFIED (4) COPD (chronic obstructive pulmonary disease) Code(s): J44.9 - CHRONIC OBSTRUCTIVE PULMONARY DISEASE, UNSPECIFIED (5) Renal insufficiency Code(s): N28.9 - DISORDER OF KIDNEY AND URETER, UNSPECIFIED Assessment/Plan Current Medications Generic Name Dose Route Start Last Admin Trade Name Freq PRN Reason Stop Dose Admin Atorvastatin Calcium 40 mg 07/14/18 22:00 Lipitor - PO HS AURELIO Budesonide/Formoterol Fumarate 1 puff 07/14/18 10:00 07/14/18 09:35 Symbicort 80/4.5mcg - IH 1 pump BID AURELIO Administration Cyanocobalamin 1,000 mcg 07/14/18 10:00 07/14/18 09:36 Vitamin B12 - PO 1,000 mcg DAILY AURELIO Administration Escitalopram Oxalate 10 mg 07/14/18 10:00 07/14/18 09:33 Lexapro - PO 10 mg Q2D AURELIO Administration Gabapentin 100 mg 07/13/18 22:24 07/14/18 15:11 Neurontin - PO Not Given TID AURELIO Levothyroxine Sodium 25 mcg 07/14/18 07:00 07/14/18 06:08 Synthroid - PO 25 mcg 0700 AURELIO Administration Lisinopril 5 mg 07/14/18 10:00 07/14/18 09:34 Prinivil PO 5 mg DAILY AURELIO Administration Metoprolol Succinate 100 mg 07/14/18 10:00 07/14/18 09:36 Toprol Xl - PO 100 mg DAILY AURELIO Administration Multivitamins/Minerals/Vitamin C 1 tab 07/14/18 10:00 07/14/18 09:35 Tab-A-Vit - PO 1 tab DAILY AURELIO Administration Pantoprazole Sodium 40 mg 07/14/18 10:00 07/14/18 09:34 Protonix - PO 40 mg DAILY AURELIO Administration Polyethylene Glycol 17 gm 07/14/18 10:00 07/14/18 09:41 Miralax (For Daily Use) - PO Not Given DAILY AURELIO Senna 1 tab 07/14/18 22:00 Senna - PO HS AURELIO Tamsulosin HCl 0.4 mg 07/14/18 08:30 07/14/18 09:33 Flomax - PO 0.4 mg 0830 AURELIO Administration Tiotropium [place] 2 puff 07/14/18 10:00 07/14/18 09:34 Spiriva Respimat IH 2 puff DAILY AURELIO Administration Tramadol HCl 50 mg 07/13/18 22:24 Ultram - PO Q8H PRN PAIN LEVEL 6-10 Impression 1. CKD 2. anemia 3. hyperkalemia 4. HTN 5. DM 6. hypothyroidism 7. HLD 8. copd 9. proteinuria - nephrotic 10. active smoker Plan - potassium is improved - discuse low potassium diet at length - discussed with medical team - will follow - if potassium is not controlled may need to stop bebeto - repeat labs in am
--- NOTE | 2018-07-14 15:58 | PN ---
Teaching Attending Note Name of Resident: Ashli Livingston ATTENDING PHYSICIAN STATEMENT I saw and evaluated the patient. I reviewed the resident's note and discussed the case with the resident. I agree with the resident's findings and plan as documented. SUBJECTIVE: Patient is comfortable. Has no complains. No shortness of breath. OBJECTIVE: Vital Signs Temperature 98.3 F 07/14/18 14:02 Pulse Rate 67 07/14/18 14:02 Respiratory Rate 20 07/14/18 14:02 Blood Pressure 129/58 L 07/14/18 14:02 O2 Sat by Pulse Oximetry (%) 96 07/14/18 09:00 GENERAL: Awake, alert, and fully oriented, in no acute distress. Pale in appearance. HEAD: Normal with no signs of trauma. EYES: Pupils equal, round and reactive to light, extraocular movements intact, sclera anicteric. EARS, NOSE, THROAT: Ears normal, oropharynx clear without exudates. Moist mucous membranes. NECK: Normal range of motion, supple without lymphadenopathy, JVD, or masses. LUNGS: CTA BL, No wheezes, and no crackles. HEART: Regular rate and rhythm, normal S1 and S2 without murmur, rub or gallop. ABDOMEN: Soft, nontender, not distended, normoactive bowel sounds, no guarding, no rebound, no masses. EXTREMITIES: 2+ pulses, warm, well-perfused. NEUROLOGICAL: Cranial nerves II-XII intact. Normal speech. PSYCHIATRIC: Cooperative. Good eye contact. Appropriate mood and affect. SKIN: Warm, dry, normal turgor, no rashes or lesions noted, normal capillary refill. CBCD WBC 3.6 K/mm3 (4.0-10.0) L 07/14/18 09:05 RBC 2.67 M/mm3 (4.00-5.60) L 07/14/18 09:05 Hgb 8.9 GM/dL (11.7-16.9) L 07/14/18 09:05 Hct 25.8 % (35.4-49) L D 07/14/18 09:05 MCV 96.4 fl (80-96) H D 07/14/18 09:05 MCHC 34.6 g/dl (32.0-35.9) 07/14/18 09:05 RDW 21.9 % (11.9-15.9) H 07/14/18 09:05 Plt Count 234 K/MM3 (134-434) 07/14/18 09:05 MPV 9.6 fl (7.5-11.1) 07/14/18 09:05 CMP Sodium 137 mmol/L (136-145) 07/14/18 09:05 Potassium 5.0 mmol/L (3.5-5.1) 07/14/18 09:05 Chloride 112 mmol/L (98-107) H 07/14/18 09:05 Carbon Dioxide 25 mmol/L (21-32) 07/14/18 09:05 Anion Gap 0 MMOL/L (8-16) L 07/14/18 09:05 BUN 41 mg/dL (7-18) H 07/14/18 09:05 Creatinine 1.9 mg/dL (0.55-1.3) H 07/14/18 09:05 Creat Clearance w eGFR 35.54 (>60) 07/14/18 09:05 Random Glucose 82 mg/dL (74-106) 07/14/18 09:05 Calcium 8.2 mg/dL (8.5-10.1) L 07/14/18 09:05 Total Bilirubin 0.7 mg/dL (0.2-1) 07/13/18 18:07 AST 12 U/L (15-37) L 07/13/18 18:07 ALT 20 U/L (13-61) 07/13/18 18:07 Alkaline Phosphatase 68 U/L (45-117) 07/13/18 18:07 Total Protein 6.6 g/dl (6.4-8.2) 07/13/18 18:07 Albumin 3.3 g/dl (3.4-5.0) L 07/13/18 18:07 CARDIAC ENZYMES Creatine Kinase 39 IU/L (26-308) 07/13/18 15:00 Troponin I < 0.02 ng/ml (0.00-0.05) 07/13/18 15:00 Current Medications Generic Name Dose Route Start Last Admin Trade Name Freq PRN Reason Stop Dose Admin Atorvastatin Calcium 40 mg 07/14/18 22:00 Lipitor - PO HS AURLEIO Budesonide/Formoterol Fumarate 1 puff 07/14/18 10:00 07/14/18 09:35 Symbicort 80/4.5mcg - IH 1 pump BID AURELIO Administration Cyanocobalamin 1,000 mcg 07/14/18 10:00 07/14/18 09:36 Vitamin B12 - PO 1,000 mcg DAILY AURELIO Administration Escitalopram Oxalate 10 mg 07/14/18 10:00 07/14/18 09:33 Lexapro - PO 10 mg Q2D AURELIO Administration Gabapentin 100 mg 07/13/18 22:24 07/14/18 15:11 Neurontin - PO Not Given TID [facility] Levothyroxine Sodium 25 mcg 07/14/18 07:00 07/14/18 06:08 Synthroid - PO 25 mcg 0700 [facility] Administration Lisinopril 5 mg 07/14/18 10:00 07/14/18 09:34 Prinivil PO 5 mg DAILY [facility] Administration Metoprolol Succinate 100 mg 07/14/18 10:00 07/14/18 09:36 Toprol Xl - PO 100 mg DAILY [facility] Administration Multivitamins/Minerals/Vitamin C 1 tab 07/14/18 10:00 07/14/18 09:35 Tab-A-Vit - PO 1 tab DAILY [facility] Administration Pantoprazole Sodium 40 mg 07/14/18 10:00 07/14/18 09:34 Protonix - PO 40 mg DAILY [facility] Administration Polyethylene Glycol 17 gm 07/14/18 10:00 07/14/18 09:41 Miralax (For Daily Use) - PO Not Given DAILY [facility] Senna 1 tab 07/14/18 22:00 Senna - PO HS [facility] Tamsulosin HCl 0.4 mg 07/14/18 08:30 07/14/18 09:33 Flomax - PO 0.4 mg 0830 [facility] Administration Tiotropium [place] 2 puff 07/14/18 10:00 07/14/18 09:34 Spiriva Respimat IH 2 puff DAILY [facility] Administration Tramadol HCl 50 mg 07/13/18 22:24 Ultram - PO Q8H PRN PAIN LEVEL 6-10 Home Medications Medication Instructions Recorded Atorvastatin Ca [Lipitor] 40 mg PO HS 07/13/18 Cyanocobalamin [Vitamin B12 -] 1,000 mcg PO DAILY 07/13/18 Epoetin Blue [Procrit -] 20,000 unit IJ WEEKLY 07/13/18 Escitalopram Oxalate [Lexapro -] 10 mg PO DAILY 07/13/18 Fluticasone/Salmeterol [Advair 1 each IH BID 07/13/18 250-50 Diskus] Gabapentin [Neurontin -] 100 mg PO Q8H PRN 07/13/18 Guaifenesin [Mucinex] 600 mg PO BID 07/13/18 Guaifenesin/Dextromethorphan 10 ml PO Q6H PRN 07/13/18 [Robafen Dm Cough Liquid] Levothyroxine [Synthroid -] 25 mcg PO DAILY 07/13/18 Lisinopril 5 mg PO DAILY 07/13/18 Metoprolol Succinate 100 mg PO DAILY 07/13/18 Multivitamin [One Daily] 1 each PO DAILY 07/13/18 Pantoprazole Sodium 40 mg PO DAILY 07/13/18 Polyethylene Glycol 3350 17 gm PO DAILY 07/13/18 [Laxaclear] Sennosides [Senna -] 1 tab PO HS 07/13/18 Silver Sulfadiazine 1% Top Cr 1 applic TP DAILY 07/13/18 [Silvadene -] Tamsulosin HCl [Flomax -] 0.4 mg PO DAILY 07/13/18 Tiotropium Br/Olodaterol HCl 2 puff IH BID 07/13/18 [Stiolto Respimat Inhal [place]] Tramadol HCl 50 mg PO TID PRN 07/13/18 ECG: sinus rhythm with 1st degree AV block with PACs, vent rate 66, QTC 463, RBBB,downsloping ST segments V4-V6, present on old ECG, Poor baseline, difficult to interpret Radiology Reports CXR portable final read pending; no obvious infiltrates or effusions ASSESSMENT/PLAN: Patient is a 67yM with PMH HTN, DM, CKD, anemia, COPD, depression sent to ED by Dr. Haley for anemia and hyperkalemia. # Acute hyperkalemia improved post kayexalate: low potassium diet was suggested since patient was eating too many bananas and having [place] juice # CKD , nephro on the case, on lisinopril 5mg # anemia improved s/p PRBC # HTN on lisinopril will check with nephro whether to dc or not # DM sliding scale with coverage # hypothyroidism on Synthroid 25mcg po daily # HLD continue meds # copd continue home meds DVT px: SCDs since patient has low anemia s/p transfusion
--- NOTE | 2018-07-14 16:09 | DS ---
Physical Exam: SUBJECTIVE: Patient seen and examined this morning at bedside. No new complaints. Denies feeling any weakness, SOB, dizziness, nausea, vomiting. OBJECTIVE: Vital Signs Period Temp Pulse Resp BP Sys/Stoner Pulse Ox Last 24 Hr 98.2 F-98.7 F 66-89 18-20 109-131/58-76 96-100 PHYSICAL EXAM GENERAL: A&Ox3, NAD, lying comfortable in bed HEAD: NCAT EYES: PERRL, EOMI ENT: Oropharynx clear without exudates, moist mucous membranes. NECK: No JVD LUNGS: Breath sounds equal, clear to auscultation bilaterally, no wheezes HEART: Regular rate and rhythm, S1, S2 without murmur ABDOMEN: Soft, nontender, nondistended, + bowel sounds EXTREMITIES: LLE BKA, no edema NEUROLOGICAL: Cranial nerves II through XII grossly intact. Normal speech. SKIN: Warm, dry, no rashes or lesions noted. LABS Laboratory Last Values WBC 3.6 K/mm3 (4.0-10.0) L 07/14/18 09:05 RBC 2.67 M/mm3 (4.00-5.60) L 07/14/18 09:05 Hgb 8.9 GM/dL (11.7-16.9) L 07/14/18 09:05 Hct 25.8 % (35.4-49) L D 07/14/18 09:05 MCV 96.4 fl (80-96) H D 07/14/18 09:05 MCH 33.4 pg (25.7-33.7) 07/14/18 09:05 MCHC 34.6 g/dl (32.0-35.9) 07/14/18 09:05 RDW 21.9 % (11.9-15.9) H 07/14/18 09:05 Plt Count 234 K/MM3 (134-434) 07/14/18 09:05 MPV 9.6 fl (7.5-11.1) 07/14/18 09:05 Absolute Neuts (auto) 1.9 K/mm3 (1.5-8.0) 07/14/18 09:05 Neutrophils % 51.7 % (42.8-82.8) 07/14/18 09:05 Neutrophils % (Manual) 43.0 % (42.8-82.8) D 07/14/18 09:05 Band Neutrophils % 9.0 % 07/14/18 09:05 Lymphocytes % 22.1 % (8-40) 07/14/18 09:05 Lymphocytes % (Manual) 13.0 % (8-40) D 07/14/18 09:05 Monocytes % 23.5 % (3.8-10.2) H 07/14/18 09:05 Monocytes % (Manual) 17 % (3.8-10.2) H 07/14/18 09:05 Eosinophils % 2.0 % (0-4.5) 07/14/18 09:05 Eosinophils % (Manual) 1.0 % (0-4.5) 07/14/18 09:05 Basophils % 0.7 % (0-2.0) 07/14/18 09:05 Basophils % (Manual) 1.0 % (0-2.0) D 07/14/18 09:05 Myelocytes % (Man) 1 % (0-2) 07/14/18 09:05 Promyelocytes % (Man) 0 % (0-2) 07/14/18 09:05 Blast Cells % (Manual) 0 % (0-0) 07/14/18 09:05 Nucleated RBC % 0 % (0-0) 07/14/18 09:05 Metamyelocytes 3 % (0-2) H D 07/14/18 09:05 Hypochromia 0 07/14/18 09:05 Platelet Estimate Normal 07/14/18 09:05 Polychromasia 1+ 07/14/18 09:05 Poikilocytosis 1+ 07/14/18 09:05 Anisocytosis 2+ 07/14/18 09:05 Microcytosis 1+ 07/14/18 09:05 Macrocytosis 0 07/14/18 09:05 Spherocytes 2+ 07/14/18 09:05 Ovalocytes 1+ 07/14/18 09:05 Acanthocytes (Spur) 1+ 07/14/18 09:05 Fragmented RBCs 1+ 07/14/18 09:05 Retic Count 0.91 % (0.5-1.5) 07/13/18 15:00 PT with INR 13.40 SEC (9.7-13.0) H 10/24/18 15:00 INR 1.13 (0.83-1.09) H 07/13/18 15:00 Sodium 137 mmol/L (136-145) 07/14/18 09:05 Potassium 5.0 mmol/L (3.5-5.1) 07/14/18 09:05 Chloride 112 mmol/L (98-107) H 07/14/18 09:05 Carbon Dioxide 25 mmol/L (21-32) 07/14/18 09:05 Anion Gap 0 MMOL/L (8-16) L 07/14/18 09:05 BUN 41 mg/dL (7-18) H 07/14/18 09:05 Creatinine 1.9 mg/dL (0.55-1.3) H 07/14/18 09:05 Creat Clearance w eGFR 35.54 (>60) 07/14/18 09:05 Random Glucose 82 mg/dL (74-106) 07/14/18 09:05 Calcium 8.2 mg/dL (8.5-10.1) L 07/14/18 09:05 Phosphorus 3.5 mg/dL (2.5-4.9) 07/14/18 09:05 Magnesium 1.6 mg/dL (1.8-2.4) L 07/14/18 09:05 Total Bilirubin 0.7 mg/dL (0.2-1) 07/13/18 18:07 AST 12 U/L (15-37) L 07/13/18 18:07 ALT 20 U/L (13-61) 07/13/18 18:07 Alkaline Phosphatase 68 U/L (45-117) 07/13/18 18:07 Creatine Kinase 39 IU/L (26-308) 07/13/18 15:00 Troponin I < 0.02 ng/ml (0.00-0.05) 07/13/18 15:00 B-Natriuretic Peptide 7391.9 pg/ml (5-125) H 07/13/18 18:07 Total Protein 6.6 g/dl (6.4-8.2) 07/13/18 18:07 Albumin 3.3 g/dl (3.4-5.0) L 07/13/18 18:07 Urine Color Yellow 07/13/18 18:07 Urine Appearance Clear 07/13/18 18:07 Urine pH 5.0 (5.0-8.0) 07/13/18 18:07 Ur Specific [place] 1.015 (1.010-1.035) 07/13/18 18:07 Urine Protein 3+ (NEGATIVE) H 07/13/18 18:07 Urine Glucose (UA) Negative (NEGATIVE) 07/13/18 18:07 Urine Ketones Negative (NEGATIVE) 07/13/18 18:07 Urine Blood Negative (NEGATIVE) 07/13/18 18:07 Urine Nitrite Negative (NEGATIVE) 07/13/18 18:07 Urine Bilirubin Negative (<2.0 mg/dL) 07/13/18 18:07 Urine Urobilinogen Negative mg/dL (0.2-1.0) 07/13/18 18:07 Ur Leukocyte Esterase Negative (NEGATIVE) 07/13/18 18:07 Urine WBC (Auto) 1 /hpf (3-5) 07/13/18 18:07 Urine RBC (Auto) 1 /hpf (0-3) 07/13/18 18:07 Urine Bacteria Rare /hpf (NONE SEEN) 07/13/18 18:07 Urine Mucus Rare 07/13/18 18:07 Stool Occult Blood Negative (NEGATIVE) 07/13/18 19:14 Blood Type A POSITIVE 07/13/18 15:00 Antibody Screen Negative 07/13/18 15:00 Crossmatch See Detail 07/13/18 15:00 IMAGING: -CXR: Since 05/29/2018 there is no significant change and no sign of an acute process. There are clear hyperaerated lungs and prominent mediastinum. Correlation recommended. -EKG: SINUS RHYTHM WITH 1ST DEGREE A-V BLOCK WITH PREMATURE SUPRAVENTRICULAR COMPLEXES, LEFT AXIS DEVIATION, RIGHT BUNDLE BRANCH BLOCK, T WAVE ABNORMALITY, VR 66, QTc 463 -ECHO: LV moderately dilated, LV systolic function is mildly reduced, Mild global hypokinesis of the LV, RV is normal in size and function, Moderate MR, Mild to moderate valvular HOSPITAL COURSE: Date of Admission:07/13/18 Date of Discharge: 07/14/18 67 y/o M with a PMHx of CKD, DM, Anemia, HTN, L BKA was sent by his interactive media marketing specialist for hyperkalemia. On admission patient was found to have Hgb of 7.1 and Hct of 21.4. He admitted to generalized weakness for the past 2 weeks. 2 units pRBCs were transfused and his Hgb responded appropriately (noted above) . He was given Calcium, Insulin and Kayexalate and his K+ responded appropriately (noted above). His EKG did not reveal any new concerns. His Echo was done noted above. His symptoms improved and He continued his home meds. Patient was discharged home with instruction for Low potassium diet. Additionally he was told to follow up with a Outside Plant Cable Engineer in 1 week. Minutes to complete discharge: 45 Discharge Summary Reason For Visit: ANEMIA,CHRONIC KIDNEY DISEASE,HYPERKALEMIA Current Active Problems Anemia (Acute) Hyperkalemia (Acute) Hypernatremia (Acute) Hyponatremia (Acute) CKD (chronic kidney disease) (Chronic) Condition: Stable - Instructions Diet, Activity, Other Instructions: You were in the hospital for high potassium and low blood counts. You will need to follow up with your primary care doctor within 1 week . You need to follow up with your broiler chef or cook within 1 week. This is very important. This doctor needs to do tests to find out why your blood counts are low. You also need to follow up with your interactive media marketing specialist. Your potassium level was very high and you need to make sure your levels are ok. You should resume your home medications. Please review your medications with your primary doctor. You should eat a low potassium diet. Avoid things like bananas or beans, orange juice. You can check the potassium quantity on the nutrition facts. If you develop new symptoms, call your doctor or return to the emergency department. Referrals: Richy Horowitz MD [Staff Physician] - 1 Week Wendy Scott MD, MD [Primary Care Provider] - 1 Week Corazon Vallejo MD [Staff Physician] - 1 Week Sridevi Haley MD [Staff Physician] - 1 Week Disposition: HOME - Home Medications Comprehensive Discharge Medication List: Ambulatory Orders Atorvastatin Ca [Lipitor] 40 mg PO HS 07/13/18 Cyanocobalamin [Vitamin B12 -] 1,000 mcg PO DAILY 07/13/18 Epoetin Blue [Procrit -] 20,000 unit IJ WEEKLY 07/13/18 Escitalopram Oxalate [Lexapro -] 10 mg PO DAILY 07/13/18 Fluticasone/Salmeterol [Advair 250-50 Diskus] 1 each IH BID 07/13/18 Gabapentin [Neurontin -] 100 mg PO Q8H PRN 07/13/18 Guaifenesin [Mucinex] 600 mg PO BID 07/13/18 Guaifenesin/Dextromethorphan [Robafen Dm Cough Liquid] 10 ml PO Q6H PRN Levothyroxine [Synthroid -] 25 mcg PO DAILY 07/13/18 Lisinopril 5 mg PO DAILY 07/13/18 Metoprolol Succinate 100 mg PO DAILY 07/13/18 Multivitamin [One Daily] 1 each PO DAILY 07/13/18 Pantoprazole Sodium 40 mg PO DAILY 07/13/18 Polyethylene Glycol 3350 [Laxaclear] 17 gm PO DAILY 07/13/18 Sennosides [Senna -] 1 tab PO HS 07/13/18 Silver Sulfadiazine 1% Top Cr [Silvadene -] 1 applic TP DAILY 07/13/18 Tamsulosin HCl [Flomax -] 0.4 mg PO DAILY 07/13/18 Tiotropium Br/Olodaterol HCl [Stiolto Respimat Inhal [place]] 2 puff IH BID Tramadol HCl 50 mg PO TID PRN 07/13/18 This patient is new to me today: Yes Date on this admission: 07/14/18 Emergency Visit: Yes ED Registration Date: 07/13/18 Care time: The patient presented to the Emergency Department on the above date and was hospitalized for further evaluation of their emergent condition. Critical Care patient: No - Discharge Referral Referred to [facility] No
[2018-07-14] MEDS ORDERED: SENNOSIDES 8.6MG TABLET (FP) PO SCH (22:00)
[2018-07-14] MEDS ORDERED: ATORVASTATIN CA 40 MG TABLET (FP) PO SCH (22:00)
[2018-07-15] MEDS: LEVOTHYROXINE NA 25 MCG TABLET (FP) PO SCH (06:07)
[2018-07-15] MEDS: GABAPENTIN 100 MG CAPSULE (FP) PO SCH (06:07)
[2018-07-15] MEDS ORDERED: MAGNESIUM OXIDE 400 MG TABLET (FP) PO ONE (08:27)
[2018-07-15] MEDS ORDERED: PT OWN MED DRAWER 7, Y5N ONE (09:36)
[2018-07-15] MEDS: BUDESONIDE/FORMETEROL FUMARATE 80/4.5 mcg INHALER IH SCH (09:46)
[2018-07-15] MEDS: TIOTROPIUM BROMIDE 2.5 MCG (SPIRIVA) RESPIMAT INHALER IH SCH (09:46)
[2018-07-15] MEDS: MULTIVITAMINS (DAILY MVI) TABLET (FP) PO SCH (09:47)
[2018-07-15] MEDS: TAMSULOSIN HCL 0.4 MG CAP PO SCH (09:47)
[2018-07-15] MEDS: CYANOCOBALAMIN 1,000 MCG TABLET (FP) PO SCH (09:47)
[2018-07-15] MEDS: LISINOPRIL 5 MG TABLET (FP) PO SCH (09:48)
[2018-07-15] MEDS: POLYETHYLENE GLYCOL 3350 119 GM BTL PO SCH (09:48)
[2018-07-15] MEDS: PANTOPRAZOLE 40 MG TABLET (FP) PO SCH (09:48)
[2018-07-15] MEDS ORDERED: FUROSEMIDE 40 MG/4 ML INJECTABLE VIAL IVPUSH ONE (10:04)
--- NOTE | 2018-07-15 12:01 | PN ---
Progress Note, Physician History of Present Illness: Pt seen and examined at bedside. He is awake and alert. He denies shortness of breath. He is eager to go home. - Current Medication List Current Medications: Active Medications Atorvastatin Calcium (Lipitor -) 40 mg PO HS [facility] Last Admin: 07/14/18 21:35 Dose: 40 mg Budesonide/Formoterol Fumarate (Symbicort 80/4.5mcg -) 1 puff IH BID [facility] Last Admin: 07/15/18 09:46 Dose: 1 pump Cyanocobalamin (Vitamin B12 -) 1,000 mcg PO DAILY [facility] Last Admin: 07/15/18 09:47 Dose: 1,000 mcg Escitalopram Oxalate (Lexapro -) 10 mg PO Q2D [facility] Last Admin: 07/14/18 09:33 Dose: 10 mg Gabapentin (Neurontin -) 100 mg PO TID [facility] Last Admin: 07/15/18 06:07 Dose: 100 mg Levothyroxine Sodium (Synthroid -) 25 mcg PO 0700 [facility] Last Admin: 07/15/18 06:07 Dose: 25 mcg Lisinopril (Prinivil) 5 mg PO DAILY [facility] Last Admin: 07/15/18 09:48 Dose: 5 mg Metoprolol Succinate (Toprol Xl -) 100 mg PO DAILY [facility] Last Admin: 07/15/18 09:47 Dose: 100 mg Multivitamins/Minerals/Vitamin C (Tab-A-Vit -) 1 tab PO DAILY [facility] Last Admin: 07/15/18 09:47 Dose: 1 tab Pantoprazole Sodium (Protonix -) 40 mg PO DAILY [facility] Last Admin: 07/15/18 09:48 Dose: 40 mg Polyethylene Glycol (Miralax (For Daily Use) -) 17 gm PO DAILY [facility] Last Admin: 07/15/18 09:48 Dose: Not Given Senna (Senna -) 1 tab PO HS [facility] Last Admin: 07/14/18 21:35 Dose: 1 tab Tamsulosin HCl (Flomax -) 0.4 mg PO 0830 [facility] Last Admin: 07/15/18 09:47 Dose: 0.4 mg Tiotropium [place] (Spiriva Respimat) 2 puff IH DAILY [facility] Last Admin: 07/15/18 09:46 Dose: 2 puff Tramadol HCl (Ultram -) 50 mg PO Q8H PRN PRN Reason: PAIN LEVEL 6-10 - Objective Vital Signs: Vital Signs Temperature 98.5 F 07/15/18 10:00 Pulse Rate 68 07/15/18 10:00 Respiratory Rate 18 07/15/18 10:00 Blood Pressure 114/66 07/15/18 10:00 O2 Sat by Pulse Oximetry (%) 95 07/15/18 09:00 Constitutional: Yes: Calm Eyes: Yes: Conjunctiva Clear HENT: Yes: Atraumatic Cardiovascular: Yes: S1, S2 Respiratory: Yes: CTA Bilaterally Gastrointestinal: Yes: Soft Genitourinary: Yes: WNL Edema: No Neurological: Yes: Oriented Psychiatric: Yes: Oriented Labs: CBC, BMP 07/14/18 09:05 07/14/18 09:05 INR, PTT INR 1.13 (0.83-1.09) H 07/13/18 15:00 Problem List - Problems (1) Hyperkalemia Code(s): E87.5 - HYPERKALEMIA (2) Anemia Code(s): D64.9 - ANEMIA, UNSPECIFIED (3) CKD (chronic kidney disease) Code(s): N18.9 - CHRONIC KIDNEY DISEASE, UNSPECIFIED (4) COPD (chronic obstructive pulmonary disease) Code(s): J44.9 - CHRONIC OBSTRUCTIVE PULMONARY DISEASE, UNSPECIFIED (5) Renal insufficiency Code(s): N28.9 - DISORDER OF KIDNEY AND URETER, UNSPECIFIED Assessment/Plan Current Medications Generic Name Dose Route Start Last Admin Trade Name Freq PRN Reason Stop Dose Admin Atorvastatin Calcium 40 mg 07/14/18 22:00 07/14/18 21:35 Lipitor - PO 40 mg HS AURELIO Administration Budesonide/Formoterol Fumarate 1 puff 07/14/18 10:00 07/15/18 09:46 Symbicort 80/4.5mcg - IH 1 pump BID AURELIO Administration Cyanocobalamin 1,000 mcg 07/14/18 10:00 07/15/18 09:47 Vitamin B12 - PO 1,000 mcg DAILY [facility] Administration Escitalopram Oxalate 10 mg 07/14/18 10:00 07/14/18 09:33 Lexapro - PO 10 mg Q2D [facility]LIO Administration Gabapentin 100 mg 07/13/18 22:24 07/15/18 06:07 Neurontin - PO 100 mg TID [facility] Administration Levothyroxine Sodium 25 mcg 10/25/18 07:00 07/15/18 06:07 Synthroid - PO 25 mcg 0700 [facility] Administration Lisinopril 5 mg 07/14/18 10:00 07/15/18 09:48 Prinivil PO 5 mg DAILY [facility] Administration Metoprolol Succinate 100 mg 07/14/18 10:00 07/15/18 09:47 Toprol Xl - PO 100 mg DAILY [facility] Administration Multivitamins/Minerals/Vitamin C 1 tab 07/14/18 10:00 07/15/18 09:47 Tab-A-Vit - PO 1 tab DAILY [facility] Administration Pantoprazole Sodium 40 mg 07/14/18 10:00 07/15/18 09:48 Protonix - PO 40 mg DAILY [facility] Administration Polyethylene Glycol 17 gm 07/14/18 10:00 07/15/18 09:48 Miralax (For Daily Use) - PO Not Given DAILY [facility] Senna 1 tab 07/14/18 22:00 07/14/18 21:35 Senna - PO 1 tab HS [facility] Administration Tamsulosin HCl 0.4 mg 07/14/18 08:30 07/15/18 09:47 Flomax - PO 0.4 mg 0830 [facility] Administration Tiotropium [place] 2 puff 07/14/18 10:00 07/15/18 09:46 Spiriva Respimat IH 2 puff DAILY [facility] Administration Tramadol HCl 50 mg 07/13/18 22:24 Ultram - PO Q8H PRN PAIN LEVEL 6-10 Impression 1. CKD 2. anemia 3. hyperkalemia 4. HTN 5. DM 6. hypothyroidism 7. HLD 8. copd 9. proteinuria - nephrotic 10. active smoker Plan - low potassium diet - hold lisinopril for now - will need outpt follow up - discussed with medical team - will follow
[2018-07-15 13:47] VITALS: BP 113/56; PULSE 67; TEMP 98.4
--- NOTE | 2018-07-15 14:34 | DS ---
Physical Exam: SUBJECTIVE: Patient seen and examined this morning at bedside. No new complaints. Denies feeling any weakness, SOB, dizziness, nausea, vomiting. OBJECTIVE: Vital Signs Period Temp Pulse Resp BP Sys/Stoner Pulse Ox Last 24 Hr 98.1 F-99.5 F 66-81 18-20 113-142/56-67 95-97 PHYSICAL EXAM GENERAL: A&Ox3, NAD, lying comfortable in bed HEAD: NCAT EYES: PERRL, EOMI ENT: Oropharynx clear without exudates, moist mucous membranes. NECK: No JVD LUNGS: Breath sounds equal, clear to auscultation bilaterally, no wheezes HEART: Regular rate and rhythm, S1, S2 without murmur ABDOMEN: Soft, nontender, nondistended, + bowel sounds EXTREMITIES: LLE BKA, no edema NEUROLOGICAL: Cranial nerves II through XII grossly intact. Normal speech. SKIN: Warm, dry, no rashes or lesions noted. LABS Laboratory Last Values WBC 3.6 K/mm3 (4.0-10.0) L 07/14/18 09:05 RBC 2.67 M/mm3 (4.00-5.60) L 07/14/18 09:05 Hgb 8.9 GM/dL (11.7-16.9) L 07/14/18 09:05 Hct 25.8 % (35.4-49) L D 07/14/18 09:05 MCV 96.4 fl (80-96) H D 07/14/18 09:05 MCH 33.4 pg (25.7-33.7) 07/14/18 09:05 MCHC 34.6 g/dl (32.0-35.9) 07/14/18 09:05 RDW 21.9 % (11.9-15.9) H 07/14/18 09:05 Plt Count 234 K/MM3 (134-434) 07/14/18 09:05 MPV 9.6 fl (7.5-11.1) 07/14/18 09:05 Absolute Neuts (auto) 1.9 K/mm3 (1.5-8.0) 07/14/18 09:05 Neutrophils % 51.7 % (42.8-82.8) 07/14/18 09:05 Neutrophils % (Manual) 43.0 % (42.8-82.8) D 07/14/18 09:05 Band Neutrophils % 9.0 % 07/14/18 09:05 Lymphocytes % 22.1 % (8-40) 07/14/18 09:05 Lymphocytes % (Manual) 13.0 % (8-40) D 07/14/18 09:05 Monocytes % 23.5 % (3.8-10.2) H 07/14/18 09:05 Monocytes % (Manual) 17 % (3.8-10.2) H 07/14/18 09:05 Eosinophils % 2.0 % (0-4.5) 07/14/18 09:05 Eosinophils % (Manual) 1.0 % (0-4.5) 07/14/18 09:05 Basophils % 0.7 % (0-2.0) 07/14/18 09:05 Basophils % (Manual) 1.0 % (0-2.0) D 07/14/18 09:05 Myelocytes % (Man) 1 % (0-2) 07/14/18 09:05 Promyelocytes % (Man) 0 % (0-2) 07/14/18 09:05 Blast Cells % (Manual) 0 % (0-0) 07/14/18 09:05 Nucleated RBC % 0 % (0-0) 07/14/18 09:05 Metamyelocytes 3 % (0-2) H D 07/14/18 09:05 Hypochromia 0 07/14/18 09:05 Platelet Estimate Normal 07/14/18 09:05 Polychromasia 1+ 07/14/18 09:05 Poikilocytosis 1+ 07/14/18 09:05 Anisocytosis 2+ 07/14/18 09:05 Microcytosis 1+ 07/14/18 09:05 Macrocytosis 0 07/14/18 09:05 Spherocytes 2+ 07/14/18 09:05 Ovalocytes 1+ 07/14/18 09:05 Acanthocytes (Spur) 1+ 07/14/18 09:05 Fragmented RBCs 1+ 07/14/18 09:05 Retic Count 0.91 % (0.5-1.5) 07/13/18 15:00 PT with INR 13.40 SEC (9.7-13.0) H 10/24/18 15:00 INR 1.13 (0.83-1.09) H 07/13/18 15:00 Sodium 137 mmol/L (136-145) 07/14/18 09:05 Potassium 5.0 mmol/L (3.5-5.1) 07/14/18 09:05 Chloride 112 mmol/L (98-107) H 07/14/18 09:05 Carbon Dioxide 25 mmol/L (21-32) 07/14/18 09:05 Anion Gap 0 MMOL/L (8-16) L 07/14/18 09:05 BUN 41 mg/dL (7-18) H 07/14/18 09:05 Creatinine 1.9 mg/dL (0.55-1.3) H 07/14/18 09:05 Creat Clearance w eGFR 35.54 (>60) 07/14/18 09:05 Random Glucose 82 mg/dL (74-106) 07/14/18 09:05 Calcium 8.2 mg/dL (8.5-10.1) L 07/14/18 09:05 Phosphorus 3.5 mg/dL (2.5-4.9) 07/14/18 09:05 Magnesium 1.6 mg/dL (1.8-2.4) L 07/14/18 09:05 Total Bilirubin 0.7 mg/dL (0.2-1) 07/13/18 18:07 AST 12 U/L (15-37) L 07/13/18 18:07 ALT 20 U/L (13-61) 07/13/18 18:07 Alkaline Phosphatase 68 U/L (45-117) 07/13/18 18:07 Creatine Kinase 39 IU/L (26-308) 07/13/18 15:00 Troponin I < 0.02 ng/ml (0.00-0.05) 07/13/18 15:00 B-Natriuretic Peptide 7391.9 pg/ml (5-125) H 07/13/18 18:07 Total Protein 6.6 g/dl (6.4-8.2) 07/13/18 18:07 Albumin 3.3 g/dl (3.4-5.0) L 07/13/18 18:07 Urine Color Yellow 07/13/18 18:07 Urine Appearance Clear 07/13/18 18:07 Urine pH 5.0 (5.0-8.0) 07/13/18 18:07 Ur Specific [place] 1.015 (1.010-1.035) 07/13/18 18:07 Urine Protein 3+ (NEGATIVE) H 07/13/18 18:07 Urine Glucose (UA) Negative (NEGATIVE) 07/13/18 18:07 Urine Ketones Negative (NEGATIVE) 07/13/18 18:07 Urine Blood Negative (NEGATIVE) 07/13/18 18:07 Urine Nitrite Negative (NEGATIVE) 07/13/18 18:07 Urine Bilirubin Negative (<2.0 mg/dL) 07/13/18 18:07 Urine Urobilinogen Negative mg/dL (0.2-1.0) 07/13/18 18:07 Ur Leukocyte Esterase Negative (NEGATIVE) 07/13/18 18:07 Urine WBC (Auto) 1 /hpf (3-5) 07/13/18 18:07 Urine RBC (Auto) 1 /hpf (0-3) 07/13/18 18:07 Urine Bacteria Rare /hpf (NONE SEEN) 07/13/18 18:07 Urine Mucus Rare 07/13/18 18:07 Stool Occult Blood Negative (NEGATIVE) 07/13/18 19:14 Blood Type A POSITIVE 07/13/18 15:00 Antibody Screen Negative 07/13/18 15:00 Crossmatch See Detail 07/13/18 15:00 IMAGING: -CXR: Since 05/29/2018 there is no significant change and no sign of an acute process. There are clear hyperaerated lungs and prominent mediastinum. Correlation recommended. -EKG: SINUS RHYTHM WITH 1ST DEGREE A-V BLOCK WITH PREMATURE SUPRAVENTRICULAR COMPLEXES, LEFT AXIS DEVIATION, RIGHT BUNDLE BRANCH BLOCK, T WAVE ABNORMALITY, VR 66, QTc 463 -ECHO: LV moderately dilated, LV systolic function is mildly reduced, Mild global hypokinesis of the LV, RV is normal in size and function, Moderate MR, Mild to moderate valvular HOSPITAL COURSE: Date of Admission:07/13/18 Date of Discharge: 07/15/18 67 y/o M with a PMHx of CKD, DM, Anemia, HTN, L BKA was sent by his pourer bull ladle for hyperkalemia. On admission patient was found to have Hgb of 7.1 and Hct of 21.4. He admitted to generalized weakness for the past 2 weeks. 2 units pRBCs were transfused and his Hgb responded appropriately (noted above) . He was given Calcium, Insulin and Kayexalate and his K+ responded appropriately (noted above). His EKG did not reveal any new concerns. His Echo was done noted above. His symptoms improved and He continued his home meds. Discharge order was placed on 07/14 however their was a transportation conflict with his assisted living facility. Thus, patient stayed until 07/15 and was discharged to his assisted living facility with instruction for Low potassium diet. Additionally he was told to follow up with a Wound Care Rn in 1 week. Patient declined physical therapy during his stay. Minutes to complete discharge: 45 Discharge Summary Reason For Visit: ANEMIA,CHRONIC KIDNEY DISEASE,HYPERKALEMIA Current Active Problems Anemia (Acute) Hyperkalemia (Acute) Hypernatremia (Acute) Hyponatremia (Acute) CKD (chronic kidney disease) (Chronic) Condition: Stable - Instructions Diet, Activity, Other Instructions: You were in the hospital for high potassium and low blood counts. You will need to follow up with your primary care doctor within 1 week . 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 This is very important. This doctor needs to do tests to find out why your blood counts are low. You also need to follow up with your pourer bull ladle. Your potassium level was very high and you need to make sure your levels are ok. Please discontinue your home dose Lisinopril. You should resume all other home medications. Please review your medications with your primary doctor. You should eat a low potassium diet. Avoid things like bananas or beans, orange juice. You can check the potassium quantity on the nutrition facts. If you develop new symptoms, call your doctor or return to the emergency department. Referrals: Richy Horowitz MD [Staff Physician] - 1 Week Wendy Scott MD, MD [Primary Care Provider] - 1 Week Corazon Vallejo MD [Staff Physician] - 1 Week Sridevi Haley MD [Staff Physician] - 1 Week Disposition: HOME - Home Medications Comprehensive Discharge Medication List: Ambulatory Orders Atorvastatin Ca [Lipitor] 40 mg PO HS 07/13/18 Cyanocobalamin [Vitamin B12 -] 1,000 mcg PO DAILY 07/13/18 Epoetin Blue [Procrit -] 20,000 unit IJ WEEKLY 07/13/18 Escitalopram Oxalate [Lexapro -] 10 mg PO DAILY 07/13/18 Fluticasone/Salmeterol [Advair 250-50 Diskus] 1 each IH BID 07/13/18 Gabapentin [Neurontin -] 100 mg PO Q8H PRN 07/13/18 Guaifenesin [Mucinex] 600 mg PO BID 07/13/18 Guaifenesin/Dextromethorphan [Robafen Dm Cough Liquid] 10 ml PO Q6H PRN Levothyroxine [Synthroid -] 25 mcg PO DAILY 07/13/18 Metoprolol Succinate 100 mg PO DAILY 07/13/18 Multivitamin [One Daily] 1 each PO DAILY 07/13/18 Pantoprazole Sodium 40 mg PO DAILY 07/13/18 Polyethylene Glycol 3350 [Laxaclear] 17 gm PO DAILY 07/13/18 Sennosides [Senna -] 1 tab PO HS 07/13/18 Silver Sulfadiazine 1% Top Cr [Silvadene -] 1 applic TP DAILY 07/13/18 Tamsulosin HCl [Flomax -] 0.4 mg PO DAILY 07/13/18 Tiotropium Br/Olodaterol HCl [Stiolto Respimat Inhal [place]] 2 puff IH BID Tramadol HCl 50 mg PO TID PRN 07/13/18 This patient is new to me today: No Emergency Visit: Yes ED Registration Date: 07/13/18 Care time: The patient presented to the Emergency Department on the above date and was hospitalized for further evaluation of their emergent condition. Critical Care patient: No - Discharge Referral Referred to [facility] No
--- NOTE | 2018-07-15 17:34 | PN ---
Teaching Attending Note Name of Resident: Ashli Livingston ATTENDING PHYSICIAN STATEMENT I saw and evaluated the patient. I reviewed the resident's note and discussed the case with the resident. I agree with the resident's findings and plan as documented. SUBJECTIVE: Patient is doing well, no further shortness of breath. Post transfusion , patient was feeling short of breath s/p Lasix 20mg IV. OBJECTIVE: Vital Signs Temperature 98.4 F 07/15/18 13:45 Pulse Rate 67 07/15/18 13:45 Respiratory Rate 20 07/15/18 13:45 Blood Pressure 113/56 L 07/15/18 13:45 O2 Sat by Pulse Oximetry (%) 95 07/15/18 09:00 GENERAL: Awake, alert, and fully oriented, in no acute distress. Pale in appearance. HEAD: Normal with no signs of trauma. EYES: Pupils equal, round and reactive to light, extraocular movements intact, sclera anicteric. EARS, NOSE, THROAT: Ears normal, oropharynx clear without exudates. Moist mucous membranes. NECK: Normal range of motion, supple without lymphadenopathy, JVD, or masses. LUNGS: CTA BL, No wheezes, and no crackles. HEART: RRR, normal S1 and S2 without murmur, rub or gallop. ABDOMEN: Soft, nontender, not distended, normoactive bowel sounds, no guarding, no rebound, no masses. EXTREMITIES: 2+ pulses, warm, well-perfused. NEUROLOGICAL: Cranial nerves II-XII intact. Normal speech. PSYCHIATRIC: Cooperative. Good eye contact. Appropriate mood and affect. SKIN: Warm, dry, normal turgor, no rashes or lesions noted, normal capillary refill. CBCD WBC 3.6 K/mm3 (4.0-10.0) L 07/14/18 09:05 RBC 2.67 M/mm3 (4.00-5.60) L 07/14/18 09:05 Hgb 8.9 GM/dL (11.7-16.9) L 07/14/18 09:05 Hct 25.8 % (35.4-49) L D 07/14/18 09:05 MCV 96.4 fl (80-96) H D 07/14/18 09:05 MCHC 34.6 g/dl (32.0-35.9) 07/14/18 09:05 RDW 21.9 % (11.9-15.9) H 07/14/18 09:05 Plt Count 234 K/MM3 (134-434) 07/14/18 09:05 MPV 9.6 fl (7.5-11.1) 07/14/18 09:05 CMP Sodium 137 mmol/L (136-145) 07/14/18 09:05 Potassium 5.0 mmol/L (3.5-5.1) 07/14/18 09:05 Chloride 112 mmol/L (98-107) H 07/14/18 09:05 Carbon Dioxide 25 mmol/L (21-32) 07/14/18 09:05 Anion Gap 0 MMOL/L (8-16) L 07/14/18 09:05 BUN 41 mg/dL (7-18) H 07/14/18 09:05 Creatinine 1.9 mg/dL (0.55-1.3) H 07/14/18 09:05 Creat Clearance w eGFR 35.54 (>60) 07/14/18 09:05 Random Glucose 82 mg/dL (74-106) 07/14/18 09:05 Calcium 8.2 mg/dL (8.5-10.1) L 07/14/18 09:05 Total Bilirubin 0.7 mg/dL (0.2-1) 07/13/18 18:07 AST 12 U/L (15-37) L 07/13/18 18:07 ALT 20 U/L (13-61) 07/13/18 18:07 Alkaline Phosphatase 68 U/L (45-117) 07/13/18 18:07 Total Protein 6.6 g/dl (6.4-8.2) 07/13/18 18:07 Albumin 3.3 g/dl (3.4-5.0) L 07/13/18 18:07 CARDIAC ENZYMES Creatine Kinase 39 IU/L (26-308) 07/13/18 15:00 Troponin I < 0.02 ng/ml (0.00-0.05) 07/13/18 15:00 Home Medications Medication Instructions Recorded RX: Atorvastatin Ca [Lipitor] 40 mg PO HS 07/13/18 RX: Cyanocobalamin [Vitamin B12 -] 1,000 mcg PO DAILY 07/13/18 RX: Epoetin Blue [Procrit -] 20,000 unit IJ WEEKLY 07/13/18 RX: Escitalopram Oxalate [Lexapro 10 mg PO DAILY 07/13/18 -] RX: Fluticasone/Salmeterol [Advair 1 each IH BID 07/13/18 250-50 Diskus] RX: Gabapentin [Neurontin -] 100 mg PO Q8H PRN 07/13/18 RX: Guaifenesin [Mucinex] 600 mg PO BID 07/13/18 RX: Guaifenesin/Dextromethorphan 10 ml PO Q6H PRN 07/13/18 [Robafen Dm Cough Liquid] RX: Levothyroxine [Synthroid -] 25 mcg PO DAILY 07/13/18 RX: Metoprolol Succinate 100 mg PO DAILY 07/13/18 RX: Multivitamin [One Daily] 1 each PO DAILY 07/13/18 RX: Pantoprazole Sodium 40 mg PO DAILY 07/13/18 RX: Polyethylene Glycol 3350 17 gm PO DAILY 07/13/18 [Laxaclear] RX: Sennosides [Senna -] 1 tab PO HS 07/13/18 RX: Silver Sulfadiazine 1% Top Cr 1 applic TP DAILY 07/13/18 [Silvadene -] RX: Tamsulosin HCl [Flomax -] 0.4 mg PO DAILY 07/13/18 RX: Tiotropium Br/Olodaterol HCl 2 puff IH BID 07/13/18 [Stiolto Respimat Inhal [address]] RX: Tramadol HCl 50 mg PO TID PRN 07/13/18 ECG: sinus rhythm with 1st degree AV block with PACs, vent rate 66, QTC 463, RBBB,downsloping ST segments V4-V6, present on old ECG, Poor baseline, difficult to interpret Radiology Reports CXR portable final read pending; no obvious infiltrates or effusions ASSESSMENT/PLAN: Patient is a 67yM with PMH HTN, DM, CKD, anemia, COPD, depression sent to ED by Dr. Haley for anemia and hyperkalemia. # Acute hyperkalemia resolved s/p kayexalate: low potassium diet was suggested since patient was eating too many bananas and having [place] juice # CKD , nephro on the case, as per nephro to discontinue lisinopril , patient wll follow with Nephro # anemia improved s/p PRBC # HTN , as per nephro to discontinue lisinopril # DM sliding scale with coverage # hypothyroidism on Synthroid 25mcg po daily # HLD continue meds # copd continue home meds DVT px: SCDs since patient has low anemia s/p transfusion will discharge the patient home
== END 2018-07-15 14:36 | disposition home or self-care (01) | DRG 683 ==
LOC: JER 14:49 → JERBED 18:28 → J7W 07-14 01:41
PROVIDERS: ADMIT Internal Medicine; ATTEND Internal Medicine
PROC: 30233N1 Transfusion of Nonautologous Red Blood Cells into Peripheral Vein, Percutaneous Approach (ICD-10-PCS; principal; 2018-07-13)
DX: I12.9 Hypertensive chronic kidney disease with stage 1 through stage 4 chronic kidney disease, or unspecified chronic kidney disease (principal); E87.0 Hyperosmolality and hypernatremia; E11.22 Type 2 diabetes mellitus with diabetic chronic kidney disease; N18.9 Chronic kidney disease, unspecified; J44.9 Chronic obstructive pulmonary disease, unspecified; D64.9 Anemia, unspecified; E87.5 Hyperkalemia; E03.9 Hypothyroidism, unspecified; I25.2 Old myocardial infarction; F32.9 Major depressive disorder, single episode, unspecified; Z89.512 Acquired absence of left leg below knee; E78.5 Hyperlipidemia, unspecified; R80.9 Proteinuria, unspecified
CPT/HCPCS: 36415; 36430; 71046-TC-FY; 80048; 80053; 81003; 81015; 82272; 82550; 83735; 83880; 84100; 84132; 84484; 85025; 85044; 85610; 86850; 86900; 86901; 86922; 93005; 93010; 93306-TC; 97116-GP; 97161-GP; 99285-25; J7030; P9038; P9058

== ENCOUNTER 2018-09-01 12:04 | Inpatient (IN) | payer OTHER ==
--- NOTE | 2018-09-01 12:39 | PDOC ---
History of Present Illness - General Chief Complaint: Shortness of Breath Stated Complaint: ABD PAIN Time Seen by Provider: 09/01/18 12:34 - History of Present Illness Initial Comments: 09/01/18 12:35 67 yo M with h/o anemia, HTN, L BKA, HLD, CKD, COPD who BIBA from [facility] with SOB. Pt. reports one week of progressive SOB at rest and [place]. Worse with ambulation. Typically ambulates with walker. Home duoneb use x 1 yesterday, with minimal improvement. Endorses acute dry, non productive cough x 1 week, with absent hemoptysis. Denies home O2, or lasix use. Resides at [facility]. Recent Echo 07/14/18 EF 45-50%. Patient denies N/V, Palpitations, leg pain/swelling, F,C, Cough,CP, urinary complaints, abdominal pain, diarrhea, constipation, BPR, hematuria, lightheadedness, weakness, sensory changes. PMHx: as noted above. Denies h/o ACS/OH, stent placement, CABG. Denies h/o PE/ DVT ROS: as noted SHx: Tobacco use 1 ppd x 40 + years. Denies IVDA Allergies: NKDA Past History - Past Medical History Allergies/Adverse Reactions: Allergies Allergy/AdvReac Type Severity Reaction Status Date / Time No Known Allergies Allergy Verified 05/29/18 10:03 Home Medications: Ambulatory Orders Atorvastatin Ca [Lipitor] 40 mg PO HS 07/13/18 Cyanocobalamin [Vitamin B12 -] 1,000 mcg PO DAILY 07/13/18 Epoetin Blue [Procrit -] 20,000 unit IJ WEEKLY 07/13/18 Gabapentin [Neurontin -] 100 mg PO Q8H PRN 07/13/18 Levothyroxine [Synthroid -] 25 mcg PO DAILY 07/13/18 Metoprolol Succinate 100 mg PO DAILY 07/13/18 Pantoprazole Sodium 40 mg PO DAILY 07/13/18 Polyethylene Glycol 3350 [Laxaclear] 17 gm PO DAILY 07/13/18 Sennosides [Senna -] 1 tab PO HS 07/13/18 Silver Sulfadiazine 1% Top Cr [Silvadene -] 1 applic TP DAILY 07/13/18 Tamsulosin HCl [Flomax -] 0.4 mg PO DAILY 07/13/18 Tiotropium Br/Olodaterol HCl [Stiolto Respimat Inhal [place]] 2 puff IH BID Budesonide/Formeterol Fumarate [SYMBICORT 160/4.5mcg -] 1 inh PO BID 09/01/18 Multivitamins [Tab-A-Vit -] 1 tab PO DAILY 09/01/18 Tramadol HCl 50 mg PO BID PRN 09/01/18 Anemia: Yes Asthma: No Cancer: Yes COPD: Yes Diabetes: Yes (TYPE II) HTN: Yes Hypercholesterolemia: Yes Psychiatric Problems: Yes (DEPRESSIVE DISORDER) Thyroid Disease: Yes (HYPO) - Surgical History Orthopedic Surgery: Yes (lt BKA) - Immunization History Immunization Up to Date: Yes - Suicide/Smoking/Psychosocial Hx Smoking History: Current every day smoker Have you smoked in the past 12 months: Yes Number of Cigarettes Smoked Daily: 6 'Breaking Loose' booklet given: 05/30/18 Hx Alcohol Use: No Drug/Substance Use Hx: No Substance Use Type: None Hx Substance Use Treatment: No Review of Systems - Review of Systems Comments:: 09/01/18 12:38 GENERAL/CONSTITUTIONAL: No fever or chills. No weakness. HEAD, EYES, EARS, NOSE AND THROAT: No change in vision. No ear pain or discharge. No sore throat. CARDIOVASCULAR: No chest pain or shortness of breath RESPIRATORY:+ sob, cough. No wheezing, or hemoptysis. GASTROINTESTINAL: No nausea, vomiting, diarrhea or constipation. GENITOURINARY: No dysuria, frequency, or change in urination. MUSCULOSKELETAL: No joint or muscle swelling or pain. No neck or back pain. SKIN: No rash NEUROLOGIC: No headache, vertigo, loss of consciousness, or change in strength/ sensation. ENDOCRINE: No increased thirst. No abnormal weight change HEMATOLOGIC/LYMPHATIC: No anemia, easy bleeding, or history of blood clots. ALLERGIC/IMMUNOLOGIC: No hives or skin allergy. *Physical Exam - Physical Exam Comments: 09/01/18 12:38 GENERAL: Pale appearing. Awake, alert, and fully oriented, in no acute distress HEAD: No signs of trauma, normocephalic, atraumatic EYES: PERRLA, EOMI, sclera anicteric, conjunctiva clear ENT: Hearing grossly normal, nares patent, oropharynx clear without exudates. Moist mucosa NECK: Normal ROM, supple, no lymphadenopathy, JVD, or masses LUNGS: Slightly diminished lung sounds BL LL bases. No distress, speaks full sentences, clear to auscultation bilaterally HEART: Regular rate and rhythm, normal S1 and S2, no murmurs, rubs or gallops, peripheral pulses normal and equal bilaterally. ABDOMEN: Soft, nontender, normoactive bowel sounds. No guarding, no rebound. No masses EXTREMITIES : Normal inspection, Normal range of motion, no edema. No clubbing or cyanosis. SKIN: Warm, Dry, normal turgor, no rashes or lesions noted ED Treatment Course - LABORATORY CBC & Chemistry Diagram: 09/01/18 12:47 09/01/18 12:47 Medical Decision Making - Medical Decision Making 09/01/18 12:51 67 yo M with h/o anemia requiring multiple transfusions, HTN, L BKA, HLD, CKD, COPD who BIBA from [facility] with SOB. VSS, 100 % O2, 2 L NC, AF, A&OX3. Physical exam unremarkable. ACS/OH r/o. R/o PNA. Will consider anemia, asthma, COPD, CHF exacerbation. Low suspicion PE. ED Course: CBC, CMP,BNP, CARDIAC TX. EKG, CXR DULOULOU HUSAINIRAISSALINASBHAVYAE 09/01/18 13:04 EKG: NSR with RBBB. Nml interval duration. Absent Q waves. Nml R wave progression. Absent acute STD, SELENE. 09/01/18 13:42 H/H: 6.3/18.3 Ferritin, LH, Haptoglobin, Ferritin, Retic, FOBT 09/01/18 13:44 BNP: 34,000 09/01/18 13:44 AST/ALT: 109/271 09/01/18 13:45 09/01/18 16:04 Patient endorsed to medicine. Admitted to med/surg [place]. CXR: congestion, basilar infiltrates, right pleural fluid *DC/Admit/Observation/Transfer Diagnosis at time of Disposition: Shortness of breath Anemia Qualifiers: Anemia type: other cause Other causes of anemia: other cause, not classified Qualified Code(s): D64.89 - Other specified anemias - Discharge Dispostion Condition at time of disposition: Stable Decision to Admit order: Yes - Referrals - Patient Instructions Printed Discharge Instructions: DI for Shortness of Breath Additional Instructions: Please return to the emergency department with any new or worsening symptoms or concerns. Please follow up with your primary care physician within 72 hours. - Post Discharge Activity - Attestations Physician Attestion: 09/01/18 12:39 I attest to the information provided in this note.
[2018-09-01] MEDS ORDERED: methylPREDNISolone NA SUCC 125 MG/2 ML VIAL IVPB ONE (12:48)
[2018-09-01] MEDS ORDERED: methylPREDNISolone NA SUCC 125 MG/2 ML VIAL ONE (12:56)
[2018-09-01] MEDS ORDERED: ALBUTEROL SO4 2.5/IPRATROPIUM 0.5 INH SOL 3 ML VIAL.NEB. NEB ONE (12:56)
[2018-09-01] MEDS: ALBUTEROL SO4 2.5/IPRATROPIUM 0.5 INH SOL 3 ML VIAL.NEB. NEB SCH ×4 (13:04→13:47)
[2018-09-01 13:14] LABS: BASO % 0.3 % (0-2.0); EOS % 0.2 % (0-4.5); HEMATOCRIT 18.3 % (35.4-49); LYMPH % 10.4 % (8-40); MCH 36.5 pg (25.7-33.7); MCHC 34.7 g/dl (32.0-35.9); MEAN CELL VOLUME 105.2 fl (80-96); MONO % 21.3 % (3.8-10.2); NEUT % 67.8 % (42.8-82.8); PLATELET COUNT 300 K/MM3 (134-434); RBC 1.74 M/mm3 (4.00-5.60); RDW 24.2 % (11.9-15.9)
[2018-09-01 13:35] LABS: HEMOGLOBIN 6.3 GM/dL (11.7-16.9)
--- NOTE | 2018-09-01 13:39 | PDOC ---
Attending Attestation - HPI HPI: 09/01/18 15:09 Patient is a 67 year old male with a significant past medical history of anemia , HTN, L BKA, HLD, CKD, COPD, who presents to the ED with complaints of shortness of breath that began x1 week ago. Patient reports shortness of breath has gradually increasing over time as well as been noted to increased with exertion. He reports using 1 dose of duoneb yesterday afternoon with minimal relief, prompting him to come into the ED today for further evaluation after symptoms did not subside. He reports experiencing associated symptoms of non productive cough. Denies chest pain, sob. Denies nausea, vomiting. Denies fevers, chills. Denies diarrhea, constipation. Denies dysuria, hematuria. Denies trauma to affected area. Denies contact with sick individuals, out of state travelling. Denies any other symptoms. Allergies: None Social history: Former smoker. No illicit drugs. No alcohol. Surgical history: PMD: None <Lionel Fitch - Last Filed: 09/01/18 15:09> - Resident Resident Name: Grayson Mack - ED Attending Attestation I have performed the following: I have examined & evaluated the patient, The case was reviewed & discussed with the resident, I agree w/resident's findings & plan, Exceptions are as noted - Physicial Exam PE: GENERAL: Awake, alert, and fully oriented, in no acute distress. +Pallor. HEAD: No signs of trauma EYES: PERRLA, EOMI, sclera anicteric, conjunctiva clear ENT: Auricles normal inspection, hearing grossly normal, nares patent, oropharynx clear without exudates. Moist mucosa NECK: Normal ROM, supple, no lymphadenopathy, JVD, or masses LUNGS: Good air entry B/L, +crackles at bases B/L HEART: Regular rate and rhythm, normal S1 and S2, no murmurs, rubs or gallops ABDOMEN: Soft, nontender, normoactive bowel sounds. No guarding, no rebound. No masses EXTREMITIES: Normal range of motion, no edema. No clubbing or cyanosis. No cords, erythema, or tenderness NEUROLOGICAL: Cranial nerves II through XII grossly intact. Normal speech. Motor and sensation intact. SKIN: Warm, Dry, normal turgor, no rashes or lesions noted. - Medical Decision Making Pt with symptomatic anemia, will require transfusion. Also with CHF with elevated BNP (will give lasix with the transfusions). History of CKD, which is the likely etiology for the anemia. Guaiac is negative. Admit. <Fifi Herbert - Last Filed: 09/01/18 16:33>
[2018-09-01 13:41] LABS: ALK PHOS 114 U/L (45-117); ANION GAP 9 MMOL/L (8-16); BILIRUBIN,TOTAL 0.6 mg/dL (0.2-1); BLOOD UREA NITROGEN 66 mg/dL (7-18); CALCIUM 8.3 mg/dL (8.5-10.1); CHLORIDE 110 mmol/L (98-107); CO2 21 mmol/L (21-32); CREATININE 2.7 mg/dL (0.55-1.3); GLUCOSE,RANDOM 160 mg/dL (74-106); N-TERMINAL BNP 34000.4 pg/ml (5-125); SGOT/AST 109 U/L (15-37); SGPT/ALT 271 U/L (13-61); SODIUM 139 mmol/L (136-145)
[2018-09-01 15:03] LABS: ANISOCYTOSIS 1+; MACROCYTOSIS 1+; OVALOCYTE 1+
[2018-09-01] MEDS ORDERED: GABAPENTIN 100 MG CAPSULE (FP) PO PRN (17:43)
[2018-09-01] MEDS ORDERED: EPOETIN ALFA 20,000 UNIT/1 ML VIAL SQ SCH (17:45)
[2018-09-01 18:46] LABS: URINE APPEARANCE CLEAR; URINE BILIRUBIN NEGATIVE (<2.0 mg/dL); URINE COLOR YELLOW; URINE GLUCOSE (UA) NEGATIVE (NEGATIVE); URINE KETONE TRACE (NEGATIVE); URINE LEUK ESTERASE NEGATIVE (NEGATIVE); URINE NITRITE NEGATIVE (NEGATIVE); URINE PROTEIN 2+ (NEGATIVE); URINE UROBILINOGEN NEGATIVE mg/dL (0.2-1.0)
[2018-09-01 18:54] LABS: EPI CELLS RARE /HPF (FEW); URINE HYALINE CAST 4 /lpf; URINE MUCUS RARE
--- NOTE | 2018-09-01 20:19 | HP ---
CHIEF COMPLAINT: SOB PCP: Dr. Forest Scott HISTORY OF PRESENT ILLNESS: 67 year old male with a past medical history significant for COPD, Anemia, CKD, DM, HTN, HLD, hypothyroidism presented to the ED with 2 days of increasing SOB and dry cough. He reports he would become short of breath after walking about 10 steps. Denies fever, light headedness, syncope, chest pain, palpitation, n/v/ d. Patient denies N/V, Palpitations, leg pain/swelling, F,C, Cough,CP, urinary complaints, abdominal pain, diarrhea, constipation, BPR, hematuria, lightheadedness, weakness, sensory changes. Upon admission to the ED, labs notable for Hgb 6.3, BNP 34K, BUN/CR 66/2.7, AST/ ALT 109/271. CXR with congestive changes with possible bibasilar infiltrates and R pleural fluid. He was ordered 2U PRBC, given Solumedrol 125, duonebs. He reports his breathing has improved since his admission. 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 Social History: Lives in [facility] Smoking: Current everyday smoker for 47 years, now only smokes a few cigarettes a day Alcohol: None Drugs: MJ, Cocaine in the 70s Family History: Mother: COPD, age 91 Father: Cancer, age 70 Sister: Breast cancer Allergies No Known Allergies Allergy (Verified 05/29/18 10:03) HOME MEDICATIONS: Home Medications Medication Instructions Recorded Atorvastatin Ca [Lipitor] 40 mg PO HS 07/13/18 Cyanocobalamin [Vitamin B12 -] 1,000 mcg PO DAILY 07/13/18 Epoetin Blue [Procrit -] 20,000 unit IJ WEEKLY 07/13/18 Gabapentin [Neurontin -] 100 mg PO Q8H PRN 07/13/18 Levothyroxine [Synthroid -] 25 mcg PO DAILY 07/13/18 Metoprolol Succinate 100 mg PO DAILY 07/13/18 Pantoprazole Sodium 40 mg PO DAILY 07/13/18 Polyethylene Glycol 3350 17 gm PO DAILY 07/13/18 [Laxaclear] Sennosides [Senna -] 1 tab PO HS 07/13/18 Silver Sulfadiazine 1% Top Cr 1 applic TP DAILY 07/13/18 [Silvadene -] Tamsulosin HCl [Flomax -] 0.4 mg PO DAILY 07/13/18 Tiotropium Br/Olodaterol HCl 2 puff IH BID 07/13/18 [Stiolto Respimat Inhal [place]] Budesonide/Formeterol Fumarate 1 inh PO BID 09/01/18 [SYMBICORT 160/4.5mcg -] Multivitamins [Tab-A-Vit -] 1 tab PO DAILY 09/01/18 Tramadol HCl 50 mg PO BID PRN 09/01/18 REVIEW OF SYSTEMS CONSTITUTIONAL: (+) loss of appetite, weight pattern changer and repairer the past several months Absent: fever, chills, diaphoresis, generalized weakness, malaise, HEENT: Absent: rhinorrhea, nasal congestion, throat pain, throat swelling, difficulty swallowing, mouth swelling, ear pain, eye pain, visual changes CARDIOVASCULAR: (+) peripheral edema Absent: chest pain, syncope, palpitations, irregular heart rate, lightheadedness , RESPIRATORY: (+) shortness of breath, dyspnea with exertion, orthopnea Absent: cough, wheezing, stridor, hemoptysis GASTROINTESTINAL: Absent: abdominal pain, abdominal distension, nausea, vomiting, diarrhea, constipation, melena, hematochezia GENITOURINARY: Absent: dysuria, frequency, urgency, hesitancy, hematuria, flank pain, genital pain MUSCULOSKELETAL: Absent: myalgia, arthralgia, joint swelling, back pain, neck pain SKIN: (+) pallor Absent: rash, itching HEMATOLOGIC/IMMUNOLOGIC: Absent: easy bleeding, easy bruising, lymphadenopathy, frequent infections ENDOCRINE: Absent: unexplained weight gain, unexplained weight loss, heat intolerance, cold intolerance NEUROLOGIC: Absent: headache, focal weakness or paresthesias, dizziness, unsteady gait, seizure, mental status changes, bladder or bowel incontinence PSYCHIATRIC: Absent: anxiety, depression, suicidal or homicidal ideation, hallucinations. PHYSICAL EXAMINATION Vital Signs - 24 hr 09/01/18 09/01/18 09/01/18 12:19 12:40 16:19 Temperature 98.1 F 98.6 F Pulse Rate 68 Pulse Rate [ 78 Apical] Respiratory 22 H 20 Rate Blood Pressure 125/70 Blood Pressure 138/98 [Left Arm] O2 Sat by Pulse 97 93 L 98 Oximetry (%) 09/01/18 17:58 Temperature 98.2 F Pulse Rate Pulse Rate [ 78 Apical] Respiratory 22 H Rate Blood Pressure Blood Pressure 129/80 [Left Arm] O2 Sat by Pulse 100 Oximetry (%) GENERAL: Generalized pallor, Awake, alert, and fully oriented, in no acute distress. HEAD: Normal with no signs of trauma. EYES: periorbital edema b/l, pupils equal, round and reactive to light, extraocular movements intact, sclera anicteric, conjunctiva clear. No lid lag. EARS, NOSE, THROAT: Pale, dry mucus membranes, nares patent, oropharynx clear without exudates NECK: Normal range of motion, supple without lymphadenopathy, JVD, or masses. LUNGS: Breath sounds equal, clear to auscultation bilaterally. No wheezes, and no crackles. No accessory muscle use. HEART: Regular rate and rhythm, normal S1 and S2 without murmur, rub or gallop. ABDOMEN: Soft, nontender, not distended, normoactive bowel sounds, no guarding, no rebound, no masses. No hepatomegaly or splenomegaly. MUSCULOSKELETAL: Normal range of motion at all joints. No bony deformities or tenderness. No CVA tenderness. UPPER EXTREMITIES: 2+ pulses, warm, well-perfused. No cyanosis. No clubbing. No peripheral edema. 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 Good eye contact. Appropriate mood and affect. SKIN: Generalized pallor, Warm, dry, normal turgor, no rashes or lesions noted, normal capillary refill. Laboratory Results - last 24 hr 09/01/18 09/01/18 09/01/18 12:47 12:47 12:47 WBC 6.0 RBC 1.74 L Hgb 6.3 L* Hct 18.3 L D MCV 105.2 H D MCH 36.5 H MCHC 34.7 RDW 24.2 H Plt Count 300 D MPV 10.0 Absolute Neuts (auto) 4.1 Total Counted 100 Neutrophils % 67.8 D Neutrophils % (Manual) 70.0 D Band Neutrophils % 3.0 Lymphocytes % 10.4 D Lymphocytes % (Manual) 11.0 Monocytes % 21.3 H Monocytes % (Manual) 15 H Eosinophils % 0.2 D Basophils % 0.3 Nucleated RBC % 0 Metamyelocytes 1 D Anisocytosis 1+ Macrocytosis 1+ Spherocytes 1+ Ovalocytes 1+ Retic Count Sodium 139 Potassium 5.0 Chloride 110 H Carbon Dioxide 21 Anion Gap 9 BUN 66 H Creatinine 2.7 H Creat Clearance w eGFR 23.69 Random Glucose 160 H Calcium 8.3 L Ferritin Total Bilirubin 0.6 AST 109 H ALT 271 H Alkaline Phosphatase 114 LD Total Creatine Kinase Cancelled 47 Troponin I Cancelled 0.03 B-Natriuretic Peptide Cancelled 43708.4 H Total Protein 6.0 L Albumin 3.0 L Urine Color Urine Appearance Urine pH Ur Specific [place] Urine Protein Urine Glucose (UA) Urine Ketones Urine Blood Urine Nitrite Urine Bilirubin Urine Urobilinogen Ur Leukocyte Esterase Urine WBC (Auto) Urine RBC (Auto) Ur Epithelial Cells Hyaline Casts Urine Mucus Stool Occult Blood Blood Type Antibody Screen Crossmatch 09/01/18 09/01/18 09/01/18 13:48 13:52 13:52 WBC RBC Hgb Hct MCV MCH MCHC RDW Plt Count MPV Absolute Neuts (auto) Total Counted Neutrophils % Neutrophils % (Manual) Band Neutrophils % Lymphocytes % Lymphocytes % (Manual) Monocytes % Monocytes % (Manual) Eosinophils % Basophils % Nucleated RBC % Metamyelocytes Anisocytosis Macrocytosis Spherocytes Ovalocytes Retic Count Sodium Potassium Chloride Carbon Dioxide Anion Gap BUN Creatinine Creat Clearance w eGFR Random Glucose Calcium Ferritin 1128.9 H Total Bilirubin AST ALT Alkaline Phosphatase LD Total 244 Creatine Kinase Troponin I B-Natriuretic Peptide Total Protein Albumin Urine Color Urine Appearance Urine pH Ur Specific [place] Urine Protein Urine Glucose (UA) Urine Ketones Urine Blood Urine Nitrite Urine Bilirubin Urine Urobilinogen Ur Leukocyte Esterase Urine WBC (Auto) Urine RBC (Auto) Ur Epithelial Cells Hyaline Casts Urine Mucus Stool Occult Blood Negative Blood Type A POSITIVE Antibody Screen Negative Crossmatch See Detail 09/01/18 09/01/18 09/01/18 13:53 17:00 17:30 WBC RBC Hgb Hct MCV MCH MCHC RDW Plt Count MPV Absolute Neuts (auto) Total Counted Neutrophils % Neutrophils % (Manual) Band Neutrophils % Lymphocytes % Lymphocytes % (Manual) Monocytes % Monocytes % (Manual) Eosinophils % Basophils % Nucleated RBC % Metamyelocytes Anisocytosis Macrocytosis Spherocytes Ovalocytes Retic Count 2.16 H D Sodium Potassium Chloride Carbon Dioxide Anion Gap BUN Creatinine Creat Clearance w eGFR Random Glucose Calcium Ferritin Total Bilirubin AST ALT Alkaline Phosphatase LD Total Creatine Kinase Troponin I 0.03 B-Natriuretic Peptide Total Protein Albumin Urine Color Yellow Urine Appearance Clear Urine pH 5.0 Ur Specific [place] 1.016 Urine Protein 2+ H Urine Glucose (UA) Negative Urine Ketones Trace H Urine Blood 1+ H Urine Nitrite Negative Urine Bilirubin Negative Urine Urobilinogen Negative Ur Leukocyte Esterase Negative Urine WBC (Auto) <1 Urine RBC (Auto) None Ur Epithelial Cells Rare Hyaline Casts 4 Urine Mucus Rare Stool Occult Blood Blood Type Antibody Screen Crossmatch ASSESSMENT/PLAN: 67 year old male with a past medical history significant for COPD, Anemia, CKD, DM, HTN, HLD, hypothyroidism presented to the ED with 2 days of increasing SOB. CXR with congestive changes and BMP of 34,000, Hgb was 6.3. He was given 2U PRBC and admitted for COPD exacerbation. Radiology Reports CXR portable Congestive changes with possible bibasilar infiltrates and R pleural fluid ASSESSMENT/PLAN: 67yM with PMH HTN, DM, CKD, anemia, COPD, depression sent to ED by Dr. Haley for anemia and hyperkalemia. Anemia - H/H 7.1/21.4 - Iron deficiency on previous workup - Transfuse 2uPRBC - 40 mg Lasix IV between units - Monitor CBC COPD - Solumedrol 40 mg IV q8h - Symbicort 160/4.5mcg 1 inh PO BID - Stiolto Respimat Inhal [place] 2 puff IH BID - Nebs PRN - Pulmonology consult Heart failure, unspecified - BNP 34,000 - Cardiac consult ordered [id number] - BUN/Cr 66/2.7 - Baseline Cr 2 - Procrit 20K U SQ qweek - Renal consult - Avoid nephrotoxic agents - Renal diet Transaminitis - AST/ALT 109/271 - Hold statin - Monitor CMP HTN - Controlled - Metoprolol Succinate 100 mg PO DAILY HLD - HOLD home Atorvastatin Ca 40 mg PO HS - Elevated LFTs - Monitor LFTs, then restart when WNL BPH - Flomax 0.4 mg PO DAILY Hypothyroidism - Levothyroxine 25 mcg PO DAILY Pain management - Tramadol 50 mg PO BID - Gabapentin 100 mg TID Constipation - [id number] gm PO DAILY - Senna1 tab PO HS Supplement - Vitamin B12 1,000 mcg PO DAILY - Multivitamins 1 tab PO DAILY Prophylaxis - DVT: Hold heparin for now due to anemia - GI: Protonix 40 mg PO DAILY FEN - PO intake adequate - BMP in am - Renal diet as tolerated Dispo: Requires further inpatient management of his emergent condition. Visit type - Emergency Visit Emergency Visit: Yes ED Registration Date: 09/01/18 Care time: The patient presented to the Emergency Department on the above date and was hospitalized for further evaluation of their emergent condition. - New Patient This patient is new to me today: Yes Date on this admission: 09/01/18 - Critical Care Critical Care patient: No
[2018-09-01] MEDS ORDERED: FUROSEMIDE 40 MG/4 ML INJECTABLE VIAL IVPUSH ONE (20:45)
[2018-09-01] MEDS: SENNOSIDES 8.6MG TABLET (FP) PO SCH (21:09)
[2018-09-01] MEDS: GABAPENTIN 100 MG CAPSULE (FP) PO SCH (21:09)
[2018-09-01] MEDS ORDERED: ATORVASTATIN CA 40 MG TABLET (FP) PO SCH (22:00)
[2018-09-01] MEDS ORDERED: PATIENT'S OWN MEDICATION (NON-FORMULARY) (Tiotropium Br/Olodaterol Hcl [Stiolto Respimat I IH SCH (22:00)
[2018-09-01] MEDS: BUDESONIDE/FORMETEROL FUMARATE 160/4.5 mcg INHALER IH SCH (22:53)
[2018-09-02] MEDS: ALBUTEROL SO4 2.5/IPRATROPIUM 0.5 INH SOL 3 ML VIAL.NEB. NEB PRN ×2 (00:08→11:33)
[2018-09-02 00:09] VITALS: BMI 23.8
[2018-09-02] MEDS: methylPREDNISolone NA SUCC 40 MG/1 ML VIAL IVPUSH SCH ×3 (03:30→17:55)
[2018-09-02] MEDS: GABAPENTIN 100 MG CAPSULE (FP) PO SCH ×3 (06:19→21:06)
[2018-09-02] MEDS: LEVOTHYROXINE NA 25 MCG TABLET (FP) PO SCH (06:19)
[2018-09-02 06:59] LABS: HEMATOCRIT 23.6 % (35.4-49); HEMOGLOBIN 7.9 GM/dL (11.7-16.9); MCH 33.2 pg (25.7-33.7); MCHC 33.3 g/dl (32.0-35.9); MEAN CELL VOLUME 99.6 fl (80-96); MEAN PLT VOLUME 9.8 fl (7.5-11.1); PLATELET COUNT 264 K/MM3 (134-434); RBC 2.37 M/mm3 (4.00-5.60); RDW 24.4 % (11.9-15.9)
[2018-09-02 07:12] LABS: ALBUMIN 2.8 g/dl (3.4-5.0); ALK PHOS 105 U/L (45-117); ANION GAP 9 MMOL/L (8-16); BLOOD UREA NITROGEN 69 mg/dL (7-18); CALCIUM 8.2 mg/dL (8.5-10.1); CHLORIDE 108 mmol/L (98-107); CO2 21 mmol/L (21-32); CREATININE 2.5 mg/dL (0.55-1.3); GLUCOSE,RANDOM 200 mg/dL (74-106); MAGNESIUM 1.8 mg/dL (1.8-2.4); SGOT/AST 49 U/L (15-37); SGPT/ALT 219 U/L (13-61); SODIUM 138 mmol/L (136-145); TOT PROT 5.8 g/dl (6.4-8.2)
[2018-09-02 07:27] LABS: WHITE BLOOD COUNT 2.2 K/mm3 (4.0-10.0)
[2018-09-02] MEDS: TAMSULOSIN HCL 0.4 MG CAP PO SCH (08:30)
[2018-09-02] MEDS ORDERED: PT OWN MED DRAWER 7, Y5N ONE ×3 (10:02→21:03)
--- NOTE | 2018-09-02 10:04 | DS ---
Physical Exam: SUBJECTIVE: Patient seen and examined, he reports he is feeling well and his breathing has improved. He is tolerating his food, denies pain. Hgb improved from 6.3 to 7.9. Seen by nephrology and ID. OBJECTIVE: Vital Signs Period Temp Pulse Resp BP Sys/Stoner Pulse Ox Last 24 Hr 98.1 F-99.0 F 68-82 18-22 121-138/70-98 93-100 PHYSICAL EXAM GENERAL: Less pale than yesterday, Awake, alert, and fully oriented, in no acute distress. HEAD: Normal with no signs of trauma. EYES: periorbital edema b/l, pupils equal, round and reactive to light, extraocular movements intact, sclera anicteric, conjunctiva clear. No lid lag. EARS, NOSE, THROAT: moist mucus membranes, nares patent, oropharynx clear without exudates NECK: Normal range of motion, supple without lymphadenopathy, JVD, or masses. LUNGS: +Cough, breath sounds equal, clear to auscultation bilaterally. No wheezes, and no crackles. No accessory muscle use. HEART: Regular rate and rhythm, normal S1 and S2 without murmur, rub or gallop. ABDOMEN: Soft, nontender, not distended, normoactive bowel sounds, no guarding, no rebound, no masses. No hepatomegaly or splenomegaly. MUSCULOSKELETAL: Normal range of motion at all joints. No bony deformities or tenderness. No CVA tenderness. UPPER EXTREMITIES: 2+ pulses, warm, well-perfused. No cyanosis. No clubbing. No peripheral edema. 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 Good eye contact. Appropriate mood and affect. SKIN: Warm, dry, normal turgor, no rashes or lesions noted, normal capillary refill. LABS Laboratory Results - last 24 hr 09/01/18 09/01/18 09/01/18 12:47 12:47 12:47 WBC 6.0 RBC 1.74 L Hgb 6.3 L* Hct 18.3 L D MCV 105.2 H D MCH 36.5 H MCHC 34.7 RDW 24.2 H Plt Count 300 D MPV 10.0 Absolute Neuts (auto) 4.1 Total Counted 100 Neutrophils % 67.8 D Neutrophils % (Manual) 70.0 D Band Neutrophils % 3.0 Lymphocytes % 10.4 D Lymphocytes % (Manual) 11.0 Monocytes % 21.3 H Monocytes % (Manual) 15 H Eosinophils % 0.2 D Basophils % 0.3 Nucleated RBC % 0 Metamyelocytes 1 D Anisocytosis 1+ Macrocytosis 1+ Spherocytes 1+ Ovalocytes 1+ Retic Count Sodium 139 Potassium 5.0 Chloride 110 H Carbon Dioxide 21 Anion Gap 9 BUN 66 H Creatinine 2.7 H Creat Clearance w eGFR 23.69 Random Glucose 160 H Calcium 8.3 L Magnesium Ferritin Total Bilirubin 0.6 AST 109 H ALT 271 H Alkaline Phosphatase 114 LD Total Creatine Kinase Cancelled 47 Troponin I Cancelled 0.03 B-Natriuretic Peptide Cancelled 86861.4 H Total Protein 6.0 L Albumin 3.0 L Urine Color Urine Appearance Urine pH Ur Specific Carey Urine Protein Urine Glucose (UA) Urine Ketones Urine Blood Urine Nitrite Urine Bilirubin Urine Urobilinogen Ur Leukocyte Esterase Urine WBC (Auto) Urine RBC (Auto) Ur Epithelial Cells Hyaline Casts Urine Mucus Stool Occult Blood Blood Type Antibody Screen Crossmatch 09/01/18 09/01/18 09/01/18 13:48 13:52 13:52 WBC RBC Hgb Hct MCV MCH MCHC RDW Plt Count MPV Absolute Neuts (auto) Total Counted Neutrophils % Neutrophils % (Manual) Band Neutrophils % Lymphocytes % Lymphocytes % (Manual) Monocytes % Monocytes % (Manual) Eosinophils % Basophils % Nucleated RBC % Metamyelocytes Anisocytosis Macrocytosis Spherocytes Ovalocytes Retic Count Sodium Potassium Chloride Carbon Dioxide Anion Gap BUN Creatinine Creat Clearance w eGFR Random Glucose Calcium Magnesium Ferritin 1128.9 H Total Bilirubin AST ALT Alkaline Phosphatase LD Total 244 Creatine Kinase Troponin I B-Natriuretic Peptide Total Protein Albumin Urine Color Urine Appearance Urine pH Ur Specific [place] Urine Protein Urine Glucose (UA) Urine Ketones Urine Blood Urine Nitrite Urine Bilirubin Urine Urobilinogen Ur Leukocyte Esterase Urine WBC (Auto) Urine RBC (Auto) Ur Epithelial Cells Hyaline Casts Urine Mucus Stool Occult Blood Negative Blood Type A POSITIVE Antibody Screen Negative Crossmatch See Detail 09/01/18 09/01/18 09/01/18 13:53 17:00 17:30 WBC RBC Hgb Hct MCV MCH MCHC RDW Plt Count MPV Absolute Neuts (auto) Total Counted Neutrophils % Neutrophils % (Manual) Band Neutrophils % Lymphocytes % Lymphocytes % (Manual) Monocytes % Monocytes % (Manual) Eosinophils % Basophils % Nucleated RBC % Metamyelocytes Anisocytosis Macrocytosis Spherocytes Ovalocytes Retic Count 2.16 H D Sodium Potassium Chloride Carbon Dioxide Anion Gap BUN Creatinine Creat Clearance w eGFR Random Glucose Calcium Magnesium Ferritin Total Bilirubin AST ALT Alkaline Phosphatase LD Total Creatine Kinase Troponin I 0.03 B-Natriuretic Peptide Total Protein Albumin Urine Color Yellow Urine Appearance Clear Urine pH 5.0 Ur Specific Carey 1.016 Urine Protein 2+ H Urine Glucose (UA) Negative Urine Ketones Trace H Urine Blood 1+ H Urine Nitrite Negative Urine Bilirubin Negative Urine Urobilinogen Negative Ur Leukocyte Esterase Negative Urine WBC (Auto) <1 Urine RBC (Auto) None Ur Epithelial Cells Rare Hyaline Casts 4 Urine Mucus Rare Stool Occult Blood Blood Type Antibody Screen Crossmatch 09/01/18 09/02/18 09/02/18 20:40 06:00 06:00 WBC 2.2 L RBC 2.37 L Hgb 7.9 L Hct 23.6 L D MCV 99.6 H MCH 33.2 MCHC 33.3 RDW 24.4 H Plt Count 264 MPV 9.8 Absolute Neuts (auto) Total Counted Neutrophils % Neutrophils % (Manual) Band Neutrophils % Lymphocytes % Lymphocytes % (Manual) Monocytes % Monocytes % (Manual) Eosinophils % Basophils % Nucleated RBC % Metamyelocytes Anisocytosis Macrocytosis Spherocytes Ovalocytes Retic Count Sodium 138 Potassium 5.0 Chloride 108 H Carbon Dioxide 21 Anion Gap 9 BUN 69 H Creatinine 2.5 H Creat Clearance w eGFR 25.89 Random Glucose 200 H Calcium 8.2 L Magnesium 1.8 Ferritin Total Bilirubin 1.0 AST 49 H ALT 219 H Alkaline Phosphatase 105 LD Total Creatine Kinase Troponin I 0.03 B-Natriuretic Peptide Total Protein 5.8 L Albumin 2.8 L Urine Color Urine Appearance Urine pH Ur Specific [place] Urine Protein Urine Glucose (UA) Urine Ketones Urine Blood Urine Nitrite Urine Bilirubin Urine Urobilinogen Ur Leukocyte Esterase Urine WBC (Auto) Urine RBC (Auto) Ur Epithelial Cells Hyaline Casts Urine Mucus Stool Occult Blood Blood Type Antibody Screen Crossmatch HOSPITAL COURSE: Date of Admission:09/01/18 Date of Discharge: 09/02/18 67 year old male with a past medical history significant for COPD, Anemia, CKD, DM, HTN, HLD, hypothyroidism presented to the ED with 2 days of increasing SOB. CXR with congestive changes and BMP of 34,000, Hgb was 6.3. He was given 2U PRBC. Radiology Reports CXR portable Congestive changes with possible bibasilar infiltrates and R pleural fluid Anemia - Improved Hgb 6.3 -> 7.9 - Iron deficiency on previous workup - Transfuse 2uPRBC - 40 mg Lasix IV between units - Monitor CBC COPD - Solumedrol 40 mg IV q8h - Symbicort 160/4.5mcg 1 inh PO BID - Stiolto Respimat Inhal [place] 2 puff IH BID - Nebs PRN Heart failure, unspecified - BNP 34,000 - Cardiac consult ordered [id number] - BUN/Cr 66/2.7 -> 69/2.5 - Baseline Cr 2 - Seen by OP public services librarian Dr. Haley - Ordered dose of lasix for mild congestion s/p transfusion - Ordered Procrit 20K U now - Increased Procrit 20K U SQ from every other week to every week - Plan for biopsy in September - Patient will need to be transfused until Hgb is 10 before procedure. - Avoid nephrotoxic agents - Renal diet Transaminitis - Trending downwards - AST/ALT 109/271 -> 49/219 - Hold statin - Monitor CMP HTN - Controlled - Metoprolol Succinate 100 mg PO DAILY HLD - HOLD home Atorvastatin Ca 40 mg PO HS - Elevated LFTs - Monitor LFTs, then restart when WNL BPH - Flomax 0.4 mg PO DAILY Hypothyroidism - Levothyroxine 25 mcg PO DAILY Pain management - Tramadol 50 mg PO BID - Gabapentin 100 mg TID Constipation - [id number] gm PO DAILY - Senna1 tab PO HS Supplement - Vitamin B12 1,000 mcg PO DAILY - Multivitamins 1 tab PO DAILY Prophylaxis - GI: Protonix 40 mg PO DAILY Discharge Summary Reason For Visit: SOB/ANEMIA Current Active Problems Anemia (Acute) Shortness of breath (Acute) - Instructions Diet, Activity, Other Instructions: Please return to the emergency department with any new or worsening symptoms or concerns. Please follow up with your primary care physician within 72 hours. Referrals: Sridevi Haley MD [Staff Physician] - 1 Month Disposition: HOME - Home Medications Comprehensive Discharge Medication List: Ambulatory Orders Atorvastatin Ca [Lipitor] 40 mg PO HS 07/13/18 Cyanocobalamin [Vitamin B12 -] 1,000 mcg PO DAILY 07/13/18 Epoetin Blue [Procrit -] 20,000 unit IJ WEEKLY 07/13/18 Gabapentin [Neurontin -] 100 mg PO Q8H PRN 07/13/18 Levothyroxine [Synthroid -] 25 mcg PO DAILY 07/13/18 Metoprolol Succinate 100 mg PO DAILY 07/13/18 Pantoprazole Sodium 40 mg PO DAILY 07/13/18 Polyethylene Glycol 3350 [Laxaclear] 17 gm PO DAILY 07/13/18 Sennosides [Senna -] 1 tab PO HS 07/13/18 Silver Sulfadiazine 1% Top Cr [Silvadene -] 1 applic TP DAILY 07/13/18 Tamsulosin HCl [Flomax -] 0.4 mg PO DAILY 07/13/18 Tiotropium Br/Olodaterol HCl [Stiolto Respimat Inhal [place]] 2 puff IH BID Budesonide/Formeterol Fumarate [SYMBICORT 160/4.5mcg -] 1 inh PO BID 09/01/18 Multivitamins [Tab-A-Vit -] 1 tab PO DAILY 09/01/18 Tramadol HCl 50 mg PO BID PRN 09/01/18
[2018-09-02] MEDS: BUDESONIDE/FORMETEROL FUMARATE 160/4.5 mcg INHALER IH SCH ×2 (10:20→21:36)
--- NOTE | 2018-09-02 10:22 | EKG ---
Test Reason : Blood Pressure : / mmHG Vent. Rate : 069 BPM Atrial Rate : 069 BPM P-R Int : 170 ms QRS Dur : 134 ms QT Int : 448 ms P-R-T Axes : 040 -34 -34 degrees QTc Int : 480 ms NORMAL SINUS RHYTHM LEFT AXIS DEVIATION RIGHT BUNDLE BRANCH BLOCK ABNORMAL ECG WHEN COMPARED WITH ECG OF 13-JUL-2018 14:58, PREMATURE SUPRAVENTRICULAR COMPLEXES ARE NO LONGER PRESENT HI INTERVAL HAS DECREASED T WAVE INVERSION LESS EVIDENT IN LATERAL LEADS Confirmed by LINDSEY FAUSTIN, ROSALEE ([id number]) on 09/02/2018 10:21:51 AM Referred By: Confirmed By:ROSALEE PORTILLO MD
[2018-09-02] MEDS: MULTIVITAMINS (DAILY MVI) TABLET (FP) PO SCH (10:23)
[2018-09-02] MEDS: PANTOPRAZOLE 40 MG TABLET (FP) PO SCH (10:23)
[2018-09-02] MEDS: CYANOCOBALAMIN 1,000 MCG TABLET (FP) PO SCH (10:23)
[2018-09-02] MEDS: POLYETHYLENE GLYCOL 3350 255 GM BTL PO SCH (10:24)
--- NOTE | 2018-09-02 10:59 | CONSULT ---
Consult Consult Specialty:: Nephrology Reason for Consultation:: CKD - History of Present Illness Chief Complaint: shortness of breath History of Present Illness: Pt is a 67 year old male with pmhx of anemia, HTN, left BKA, HLD, CAK, active smoker and COPD who presented with shortness of breath. I was called to evaluate him for elevated creatinine. He was admitted for treatment. He was given blood and felt better. I last saw the pt on Wednesday in the office. He denies dysuria or hematuria. He wants to wait for after the new year for a kidney biopsy. - History Source History Provided By: Patient, Medical Record - Past Medical History Cardio/Vascular: Yes: HTN Pulmonary: Yes: COPD Renal/: Yes: Renal Inusuff, Other (hyperkalemia) Endocrine: Yes: Diabetes Mellitus, Hypothyroidism - Alcohol/Substance Use Hx Alcohol Use: No History of Substance Use: reports: None - Smoking History Smoking history: Current every day smoker Have you smoked in the past 12 months: Yes Aproximately how many cigarettes per day: 6 - Social History Usual Living Arrangement: Assisted Living History of Recent Travel: No Home Medications - Allergies Allergies/Adverse Reactions: Allergies Allergy/AdvReac Type Severity Reaction Status Date / Time No Known Allergies Allergy Verified 05/29/18 10:03 - Home Medications Home Medications: Ambulatory Orders Atorvastatin Ca [Lipitor] 40 mg PO HS 07/13/18 Cyanocobalamin [Vitamin B12 -] 1,000 mcg PO DAILY 07/13/18 Epoetin Blue [Procrit -] 20,000 unit IJ WEEKLY 07/13/18 Gabapentin [Neurontin -] 100 mg PO Q8H PRN 07/13/18 Levothyroxine [Synthroid -] 25 mcg PO DAILY 07/13/18 Metoprolol Succinate 100 mg PO DAILY 07/13/18 Pantoprazole Sodium 40 mg PO DAILY 07/13/18 Polyethylene Glycol 3350 [Laxaclear] 17 gm PO DAILY 07/13/18 Sennosides [Senna -] 1 tab PO HS 07/13/18 Silver Sulfadiazine 1% Top Cr [Silvadene -] 1 applic TP DAILY 07/13/18 Tamsulosin HCl [Flomax -] 0.4 mg PO DAILY 07/13/18 Tiotropium Br/Olodaterol HCl [Stiolto Respimat Inhal [place]] 2 puff IH BID 10/24/ 18 Budesonide/Formeterol Fumarate [SYMBICORT 160/4.5mcg -] 1 inh PO BID 09/01/18 Multivitamins [Tab-A-Vit -] 1 tab PO DAILY 09/01/18 Tramadol HCl 50 mg PO BID PRN 09/01/18 Family Disease History - Family Disease History Family History: Denies Review of Systems - Review of Systems Constitutional: reports: Malaise. denies: Chills, Fever Eyes: reports: No Symptoms HENT: reports: No Symptoms Neck: reports: No Symptoms Cardiovascular: reports: Shortness of Breath. denies: Chest Pain, Edema, Palpitations Respiratory: reports: Cough, SOB, SOB on Exertion Gastrointestinal: reports: No Symptoms Genitourinary: reports: No Symptoms Musculoskeletal: reports: No Symptoms Endocrine: reports: No Symptoms Hematology/Lymphatic: reports: No Symptoms Physical Exam Vital Signs: Vital Signs Temperature 98.3 F 09/02/18 05:00 Pulse Rate 74 09/02/18 05:00 Respiratory Rate 20 09/02/18 05:00 Blood Pressure 129/75 09/02/18 05:00 O2 Sat by Pulse Oximetry (%) 98 09/01/18 21:00 Constitutional: Yes: Calm Eyes: Yes: Conjunctiva Clear HENT: Yes: Atraumatic Neck: Yes: Supple Cardiovascular: Yes: S1, S2 Respiratory: Yes: Wheezes Gastrointestinal: Yes: Soft Renal/: Yes: WNL Musculoskeletal: Yes: Other (leg amputation) Edema: No Neurological: Yes: Oriented Psychiatric: Yes: Oriented Labs: CBC, BMP 09/02/18 06:00 09/02/18 06:00 Laboratory Tests 07/13/18 07/14/18 09/01/18 18:07 09:05 12:47 Hgb 6.3 L* Creatinine 2.2 H 1.9 H Ferritin 09/01/18 09/01/18 09/02/18 12:47 13:52 06:00 Hgb 7.9 L Creatinine 2.7 H Ferritin 1128.9 H 09/02/18 06:00 Hgb Creatinine 2.5 H Ferritin Imaging - Results Chest X-ray: Report Reviewed Problem List - Problems (1) Anemia Code(s): D64.9 - ANEMIA, UNSPECIFIED Qualifiers: Anemia type: other cause Other causes of anemia: other cause, not classified Qualified Code(s): D64.89 - Other specified anemias (2) Shortness of breath Code(s): R06.02 - SHORTNESS OF BREATH (3) CKD (chronic kidney disease) Code(s): N18.9 - CHRONIC KIDNEY DISEASE, UNSPECIFIED (4) COPD (chronic obstructive pulmonary disease) Code(s): J44.9 - CHRONIC OBSTRUCTIVE PULMONARY DISEASE, UNSPECIFIED (5) Renal insufficiency Code(s): N28.9 - DISORDER OF KIDNEY AND URETER, UNSPECIFIED Assessment/Plan Current Medications Generic Name Dose Route Start Last Admin Trade Name Freq PRN Reason Stop Dose Admin Albuterol/Ipratropium 1 amp 09/01/18 23:21 09/02/18 00:08 Duoneb - NEB 1 amp Q6H PRN Administration SHORTNESS OF BREATH Budesonide/Formoterol Fumarate 1 puff 09/01/18 22:00 09/02/18 10:20 Symbicort 160/4.5mcg - IH 1 puff BID AURELIO Administration Cyanocobalamin 1,000 mcg 09/02/18 10:00 09/02/18 10:23 Vitamin B12 - PO 1,000 mcg DAILY AURELIO Administration Epoetin Blue 20,000 unit 09/01/18 17:45 Procrit - SQ Fr AURELIO Epoetin Blue 20,000 unit 09/02/18 10:52 Procrit - SQ 09/02/18 10:53 ONCE ONE Gabapentin 100 mg 09/01/18 22:00 09/02/18 06:19 Neurontin - PO 100 mg TID AURELIO Administration Levothyroxine Sodium 25 mcg 09/02/18 07:00 09/02/18 06:19 Synthroid - PO 25 mcg DAILY@0700 AURELIO Administration Methylprednisolone Sodium Succinate 40 mg 09/02/18 02:00 09/02/18 10:20 Solu-Medrol - IVPUSH 40 mg Q8H-IV AURELIO Administration Metoprolol Succinate 100 mg 09/02/18 10:00 09/02/18 10:23 Toprol Xl - PO 100 mg DAILY AURELIO Administration Multivitamins/Minerals/Vitamin C 1 tab 09/02/18 10:00 09/02/18 10:23 Tab-A-Vit - PO 1 tab DAILY AURELIO Administration Non-Formulary Medication 2 puff 09/01/18 22:00 Tiotropium Br/Olodaterol Hcl [Stiolto Respimat Inhal [place]] IH BID AURELIO Pantoprazole Sodium 40 mg 09/02/18 10:00 09/02/18 10:23 Protonix - PO 40 mg DAILY AURELIO Administration Polyethylene Glycol 17 gm 09/02/18 10:00 09/02/18 10:24 Miralax (For Bowel Prep) - PO 17 grams DAILY AURELIO Administration Senna 1 tab 09/01/18 22:00 09/01/18 21:09 Senna - PO 1 tab HS AURELIO Administration Tamsulosin HCl 0.4 mg 09/02/18 08:30 09/02/18 08:30 Flomax - PO 0.4 mg DAILY@0830 AURELIO Administration Tramadol HCl 50 mg 09/01/18 17:43 Ultram - PO Q12H PRN PAIN LEVEL 4 - 6 Impression 1. CKD 2. anemia 3. history of hyperkalemia 4. HTN 5. DM 6. hypothyroidism 7. HLD 8. copd 9. proteinuria - nephrotic 10. active smoker Plan - pt s/p prbc - give another dose of procrit - will give a dose of lasix as he did get blood and has mild congestion - kidney biopsy after the new year, will likely admit pt for transfusion and close monitoring before biopsy - discussed with medical team
--- NOTE | 2018-09-02 14:19 | CON.ID ---
Consult Consult Specialty:: infectious diseases Referred by:: Fifi Reason for Consultation:: cough,sob - History of Present Illness Chief Complaint: sob History of Present Illness: 67 year old male with a past medical history significant for COPD, Anemia, CKD, DM, HTN, HLD, hypothyroidism presented to the ED with 2 days of increasing SOB and dry cough. He reports he would become short of breath after walking about 10 steps. Denies fever, light headedness, syncope, chest pain, palpitation, n/v/ d. patient was admitted with suspicion of pneumonia. he does not uses oxygen at home but currently requiring oxygen via nasal canula patient on admission was extremely - Past Medical History Cardio/Vascular: Yes: HTN Pulmonary: Yes: COPD Renal/: Yes: Renal Inusuff, Other (hyperkalemia) Endocrine: Yes: Diabetes Mellitus, Hypothyroidism - Alcohol/Substance Use Hx Alcohol Use: No History of Substance Use: reports: None - Smoking History Smoking history: Current every day smoker Have you smoked in the past 12 months: Yes Aproximately how many cigarettes per day: 6 - Social History Usual Living Arrangement: Assisted Living History of Recent Travel: No Home Medications - Allergies Allergies/Adverse Reactions: Allergies Allergy/AdvReac Type Severity Reaction Status Date / Time No Known Allergies Allergy Verified 05/29/18 10:03 - Home Medications Home Medications: Ambulatory Orders Atorvastatin Ca [Lipitor] 40 mg PO HS 07/13/18 Cyanocobalamin [Vitamin B12 -] 1,000 mcg PO DAILY 07/13/18 Epoetin Blue [Procrit -] 20,000 unit IJ WEEKLY 07/13/18 Gabapentin [Neurontin -] 100 mg PO Q8H PRN 07/13/18 Levothyroxine [Synthroid -] 25 mcg PO DAILY 07/13/18 Metoprolol Succinate 100 mg PO DAILY 07/13/18 Pantoprazole Sodium 40 mg PO DAILY 07/13/18 Polyethylene Glycol 3350 [Laxaclear] 17 gm PO DAILY 07/13/18 Sennosides [Senna -] 1 tab PO HS 07/13/18 Silver Sulfadiazine 1% Top Cr [Silvadene -] 1 applic TP DAILY 07/13/18 Tamsulosin HCl [Flomax -] 0.4 mg PO DAILY 07/13/18 Tiotropium Br/Olodaterol HCl [Stiolto Respimat Inhal [place]] 2 puff IH BID Budesonide/Formeterol Fumarate [SYMBICORT 160/4.5mcg -] 1 inh PO BID 09/01/18 Multivitamins [Tab-A-Vit -] 1 tab PO DAILY 09/01/18 Tramadol HCl 50 mg PO BID PRN 09/01/18 Physical Exam Vital Signs: Vital Signs Temperature 98.3 F 09/02/18 05:00 Pulse Rate 74 09/02/18 05:00 Respiratory Rate 20 09/02/18 05:00 Blood Pressure 129/75 09/02/18 05:00 O2 Sat by Pulse Oximetry (%) 98 09/01/18 21:00 Labs: CBC, BMP 09/02/18 06:00 09/02/18 06:00
[2018-09-02] MEDS ORDERED: EPOETIN ALFA 20,000 UNIT/1 ML VIAL SQ ONE (15:15)
--- NOTE | 2018-09-02 15:42 | PN ---
Physical Exam: SUBJECTIVE: Patient seen and examined, he reports he is feeling well and his breathing has improved. He is tolerating his food, denies pain. Hgb improved from 6.3 to 7.9. Seen by nephrology, ID and hematology. He is eager to be d/kayla back to [facility] assisted living so he can attend his meeting about his social security on Wednesday at 10:00 AM. OBJECTIVE: Vital Signs Period Temp Pulse Resp BP Sys/Stoner Pulse Ox Last 24 Hr 98.2 F-99.0 F 74-82 18-22 112-138/66-98 98-100 GENERAL: Less pale than yesterday, Awake, alert, and fully oriented, in no acute distress. HEAD: Face appears slightly edematous with a yellowish tint, Normal with no signs of trauma. EYES: periorbital edema b/l, pupils equal, round and reactive to light, extraocular movements intact, sclera anicteric, conjunctiva clear. No lid lag. EARS, NOSE, THROAT: Hoarse voice, moist mucus membranes, nares patent, oropharynx clear without exudates NECK: Normal range of motion, supple without lymphadenopathy, JVD, or masses. LUNGS: +Cough, RLLL crackles HEART: Regular rate and rhythm, normal S1 and S2 without murmur, rub or gallop. ABDOMEN: Protuberant, soft, nontender, normoactive bowel sounds, no guarding, no rebound, no masses. No hepatomegaly or splenomegaly. MUSCULOSKELETAL: Normal range of motion at all joints. No bony deformities or tenderness. No CVA tenderness. UPPER EXTREMITIES: 2+ pulses, warm, well-perfused. No cyanosis. No clubbing. No peripheral edema. LOWER EXTREMITIES: Left BKA NEUROLOGICAL: No facial droop, tongue midline, normal speech PSYCHIATRIC: Cooperative. Good eye contact. Appropriate mood and affect. SKIN: Warm, dry, normal turgor, no rashes or lesions noted, normal capillary refill. Laboratory Results - last 24 hr 09/01/18 09/01/18 09/01/18 13:48 17:00 17:30 WBC RBC Hgb Hct MCV MCH MCHC RDW Plt Count MPV Sodium Potassium Chloride Carbon Dioxide Anion Gap BUN Creatinine Creat Clearance w eGFR Random Glucose Calcium Magnesium Total Bilirubin AST ALT Alkaline Phosphatase Troponin I 0.03 Total Protein Albumin Urine Color Yellow Urine Appearance Clear Urine pH 5.0 Ur Specific [place] 1.016 Urine Protein 2+ H Urine Glucose (UA) Negative Urine Ketones Trace H Urine Blood 1+ H Urine Nitrite Negative Urine Bilirubin Negative Urine Urobilinogen Negative Ur Leukocyte Esterase Negative Urine WBC (Auto) <1 Urine RBC (Auto) None Ur Epithelial Cells Rare Hyaline Casts 4 Urine Mucus Rare Blood Type A POSITIVE Antibody Screen Negative Crossmatch See Detail 09/01/18 09/02/18 09/02/18 20:40 06:00 06:00 WBC 2.2 L RBC 2.37 L Hgb 7.9 L Hct 23.6 L D MCV 99.6 H MCH 33.2 MCHC 33.3 RDW 24.4 H Plt Count 264 MPV 9.8 Sodium 138 Potassium 5.0 Chloride 108 H Carbon Dioxide 21 Anion Gap 9 BUN 69 H Creatinine 2.5 H Creat Clearance w eGFR 25.89 Random Glucose 200 H Calcium 8.2 L Magnesium 1.8 Total Bilirubin 1.0 AST 49 H ALT 219 H Alkaline Phosphatase 105 Troponin I 0.03 Total Protein 5.8 L Albumin 2.8 L Urine Color Urine Appearance Urine pH Ur Specific [place] Urine Protein Urine Glucose (UA) Urine Ketones Urine Blood Urine Nitrite Urine Bilirubin Urine Urobilinogen Ur Leukocyte Esterase Urine WBC (Auto) Urine RBC (Auto) Ur Epithelial Cells Hyaline Casts Urine Mucus Blood Type Antibody Screen Crossmatch Active Medications Generic Name Dose Route Start Last Admin Trade Name Freq PRN Reason Stop Dose Admin Albuterol/Ipratropium 1 amp 09/01/18 23:21 09/02/18 11:33 Duoneb - NEB 1 amp Q6H PRN Administration SHORTNESS OF BREATH Budesonide/Formoterol Fumarate 1 puff 09/01/18 22:00 09/02/18 10:20 Symbicort 160/4.5mcg - IH 1 puff BID AURELIO Administration Cyanocobalamin 1,000 mcg 09/02/18 10:00 09/02/18 10:23 Vitamin B12 - PO 1,000 mcg DAILY AURELIO Administration Gabapentin 100 mg 09/01/18 22:00 09/02/18 15:01 Neurontin - PO 100 mg TID AURELIO Administration Levothyroxine Sodium 25 mcg 09/02/18 07:00 09/02/18 06:19 Synthroid - PO 25 mcg DAILY@0700 AURELIO Administration Methylprednisolone Sodium Succinate 40 mg 09/02/18 02:00 09/02/18 10:20 Solu-Medrol - IVPUSH 40 mg Q8H-IV AURELIO Administration Metoprolol Succinate 100 mg 09/02/18 10:00 09/02/18 10:23 Toprol Xl - PO 100 mg DAILY AURELIO Administration Multivitamins/Minerals/Vitamin C 1 tab 09/02/18 10:00 09/02/18 10:23 Tab-A-Vit - PO 1 tab DAILY AURELIO Administration Non-Formulary Medication 2 puff 09/01/18 22:00 Tiotropium Br/Olodaterol Hcl [Stiolto Respimat Inhal [place]] IH BID AURELIO Pantoprazole Sodium 40 mg 09/02/18 10:00 09/02/18 10:23 Protonix - PO 40 mg DAILY AURELIO Administration Polyethylene Glycol 17 gm 09/02/18 10:00 09/02/18 10:24 Miralax (For Bowel Prep) - PO 17 grams DAILY AURELIO Administration Senna 1 tab 09/01/18 22:00 09/01/18 21:09 Senna - PO 1 tab HS AURELIO Administration Tamsulosin HCl 0.4 mg 09/02/18 08:30 09/02/18 08:30 Flomax - PO 0.4 mg DAILY@0830 AURELIO Administration Tramadol HCl 50 mg 09/01/18 17:43 Ultram - PO Q12H PRN PAIN LEVEL 4 - 6 ASSESSMENT/PLAN: 67 year old male with a past medical history significant for laryngeal ca s/p radiation COPD, Anemia, CKD, DM, HTN, HLD, DM, hypothyroidism presented to the ED with 2 days of increasing SOB. CXR with congestive changes and BMP of 34,000 , Hgb was 6.3. He was given 2U PRBC. Radiology Reports CXR portable Congestive changes with possible bibasilar infiltrates and R pleural fluid Anemia - Improved Hgb 6.3 -> 7.9 - Iron deficiency on previous workup - Reticulocyte count elevated at 2.16 - FOB negative - Transfuse 2uPRBC - 40 mg Lasix IV between units - Monitor CBC COPD - Solumedrol 40 mg IV q8h -> - Symbicort 160/4.5mcg 1 inh PO BID - Stiolto Respimat Inhal [place] 2 puff IH BID - Nebs PRN Heart failure, unspecified - BNP 34,000 - Echo ordered MEENAKSHI - BUN/Cr 66/2.7 -> 69/2.5 - Baseline Cr 2 - Seen by OP binding dyer Dr. Haley - Ordered dose of lasix for mild congestion s/p transfusion - Ordered Procrit 20K U now - Increased Procrit 20K U SQ from every other week to every week - Plan for biopsy in September - Patient will need to be transfused until Hgb is 10 before procedure. - Avoid nephrotoxic agents - Renal diet Transaminitis - Trending downwards - AST/ALT 109/271 -> 49/219 - Hold statin - Abdominal US ordered to r/o ascites, if positive, GI consult - Monitor CMP HTN - Controlled - Metoprolol Succinate 100 mg PO DAILY HLD - HOLD home Atorvastatin Ca 40 mg PO HS - Elevated LFTs - Monitor LFTs, then restart when WNL DM - No longer on medications - Used to be on medications BPH - Flomax 0.4 mg PO DAILY Hypothyroidism - Levothyroxine 25 mcg PO DAILY Pain management - Tramadol 50 mg PO BID - Gabapentin 100 mg TID Constipation - [id number] gm PO DAILY - Senna1 tab PO HS Supplement - Vitamin B12 1,000 mcg PO DAILY - Multivitamins 1 tab PO DAILY Prophylaxis - GI: Protonix 40 mg PO DAILY Visit type - Emergency Visit Emergency Visit: No - New Patient This patient is new to me today: No - Critical Care Critical Care patient: No
--- NOTE | 2018-09-02 17:07 | CONSULT ---
Consultation: REQUESTING PROVIDER: Fifi Woods CONSULT REQUEST FOR HEMATOLOGY/ONCOLOGY: We have been asked to medically evaluate this patient for Anemia. HISTORY OF PRESENT ILLNESS: Patient is a 67 year old male with a PMHx of Laryngeal Carcinoma (Diagnosed 2 years ago with 7 weeks of chemotherapy once a week and 33 rounds of RT), COPD, Systolic? CHF, CKD, NIDDMII, HTN, HLD, Hypothyroidism, iron deficiency anemia who presented to the ED complaining of a two day history of shortness of breath associated with a dry cough. Patient reports the shortness of breath has been happening for the last two years but in the last month it had progressively worsened to the point he was unable to walk more than a few steps before he feels short of breath. Patient states in the last week he started feeling weak with severe shortness of breath, which prompted this hospital visit. Patient reports having no "cold-like" symptoms prior to this. However, he does report having a chronic cough that started two years ago after his radiation therapy. In the ED, patient was found to have anemia with a Hgb of 6.3, transaminitis and congestive changes on CXR with infiltrates Patient was transfused 2 PRBC's and treated for COPD exacerbation as well os CHF exacerbation. However, the following day, patient was found to have leukopenia and we were consulted for further evaluation Patient denies any recent travel Unsure if he was around any sick contacts Denies any blood disorders Patient denies ever having a colonoscopy Denies any family history of blood disorders but reports family history of cancer Patient otherwise denies any fever, chills, nausea, vomiting, abdominal pain, chest pain, palpitations, bone pain, joint pain, diarrhea, constipation, hematuria, hematochezia, hematemesis, melena. 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 Used to smoke >1.5 PPD but now smokes a few cigarettes a day Alcohol: None Drugs: marijuana and cocaine in the 70s Family Hx: Mother: COPD, age 91 Father: [place]omack Cancer, age 70 Sister: Breast cancer REVIEW OF SYSTEMS: CONSTITUTIONAL: Absent: fever, chills, diaphoresis, generalized weakness, malaise, loss of appetite, weight change HEENT: Absent: rhinorrhea, nasal congestion, throat pain, throat swelling, difficulty swallowing, mouth swelling, ear pain, eye pain, visual changes CARDIOVASCULAR: Absent: chest pain, syncope, palpitations, irregular heart rate, lightheadedness , peripheral edema RESPIRATORY: cough, shortness of breath Absent: dyspnea with exertion, orthopnea, wheezing, stridor, hemoptysis GASTROINTESTINAL: Absent: abdominal pain, abdominal distension, nausea, vomiting, diarrhea, constipation, melena, hematochezia GENITOURINARY: Absent: dysuria, frequency, urgency, hesitancy, hematuria, flank pain, genital pain MUSCULOSKELETAL: Absent: myalgia, arthralgia, joint swelling, back pain, neck pain SKIN: Absent: rash, itching, pallor HEMATOLOGIC/IMMUNOLOGIC: Absent: easy bleeding, easy bruising, lymphadenopathy, frequent infections ENDOCRINE: Absent: unexplained weight gain, unexplained weight loss, heat intolerance, cold intolerance NEUROLOGIC: Absent: headache, focal weakness or paresthesias, dizziness, unsteady gait, seizure, mental status changes, bladder or bowel incontinence PSYCHIATRIC: Absent: anxiety, depression, suicidal or homicidal ideation, hallucinations. PHYSICAL EXAMINATION Vital Signs Temperature 98.8 F 09/02/18 14:55 Pulse Rate 80 09/02/18 14:55 Respiratory Rate 20 09/02/18 14:55 Blood Pressure 112/66 09/02/18 14:55 O2 Sat by Pulse Oximetry (%) 98 09/02/18 09:00 GENERAL: Awake, alert, and fully oriented, in no acute distress. HEAD: Normal with no signs of trauma. EYES: Pupils equal, round and reactive to light, extraocular movements intact, Pallor. ENT: Oropharynx clear without exudates. Dry mucous membranes. NECK: (-) lymphadenopathy, JVD, or masses. LUNGS: Decreased breath sounds, clear to auscultation bilaterally. No wheezes, and no crackles. No accessory muscle use. HEART: Regular rate and rhythm, normal S1 and S2 without murmur, rub or gallop. ABDOMEN: Soft, nontender, not distended, normoactive bowel sounds, no guarding, no rebound, no masses. No hepatomegaly or splenomegaly. EXTREMITIES: (+) Left BKA. No edema NEUROLOGICAL: Cranial nerves II-XII intact. Normal speech. PSYCHIATRIC: Cooperative. Good eye contact. Appropriate mood and affect. SKIN: Warm, dry, normal turgor, no rashes or lesions noted. Laboratory Results 09/02/18 06:00 09/02/18 06:00 09/01/18 09/01/18 09/02/18 12:47 17:30 06:00 Total Bilirubin 1.0 AST 49 H ALT 219 H Alkaline Phosphatase 105 B-Natriuretic Peptide 74040.4 H Total Protein 5.8 L Albumin 2.8 L Urine Bilirubin Negative Active Medications Generic Name Dose Route Start Last Admin Trade Name Freq PRN Reason Stop Dose Admin Albuterol/Ipratropium 1 amp 09/01/18 23:21 09/02/18 11:33 Duoneb - NEB 1 amp Q6H PRN Administration SHORTNESS OF BREATH Budesonide/Formoterol Fumarate 1 puff 09/01/18 22:00 09/02/18 10:20 Symbicort 160/4.5mcg - IH 1 puff BID AURELIO Administration Cyanocobalamin 1,000 mcg 09/02/18 10:00 09/02/18 10:23 Vitamin B12 - PO 1,000 mcg DAILY AURELIO Administration Gabapentin 100 mg 09/01/18 22:00 09/02/18 15:01 Neurontin - PO 100 mg TID AURELIO Administration Levothyroxine Sodium 25 mcg 09/02/18 07:00 09/02/18 06:19 Synthroid - PO 25 mcg DAILY@0700 AURELIO Administration Methylprednisolone Sodium Succinate 40 mg 09/02/18 02:00 09/02/18 10:20 Solu-Medrol - IVPUSH 40 mg Q8H-IV AURELIO Administration Metoprolol Succinate 100 mg 09/02/18 10:00 09/02/18 10:23 Toprol Xl - PO 100 mg DAILY AURELIO Administration Multivitamins/Minerals/Vitamin C 1 tab 09/02/18 10:00 09/02/18 10:23 Tab-A-Vit - PO 1 tab DAILY AURELIO Administration Non-Formulary Medication 2 puff 09/01/18 22:00 Tiotropium Br/Olodaterol Hcl [Stiolto Respimat Inhal [place]] IH BID AURELIO Pantoprazole Sodium 40 mg 09/02/18 10:00 09/02/18 10:23 Protonix - PO 40 mg DAILY AURELIO Administration Polyethylene Glycol 17 gm 09/02/18 10:00 09/02/18 10:24 Miralax (For Bowel Prep) - PO 17 grams DAILY AURELIO Administration Senna 1 tab 09/01/18 22:00 09/01/18 21:09 Senna - PO 1 tab HS AURELIO Administration Tamsulosin HCl 0.4 mg 09/02/18 08:30 09/02/18 08:30 Flomax - PO 0.4 mg DAILY@0830 AURELIO Administration Tramadol HCl 50 mg 09/01/18 17:43 Ultram - PO Q12H PRN PAIN LEVEL 4 - 6 ASSESSMENT/PLAN: Patient is a 67 year old male who presented for shortness of breath and was found to have anemia with leukopenia. We were consulted for further evaluation. Problem List: Leukopenia Multi factorial Anemia- Iron deficiency with anemia of chronic disease Macrocytic anemia S/P PRBC transfusion MEENAKSHI CKD Acute CHF exacerbation- Unsure if diastolic vs systolic Acute COPD exacerbation Transaminitis HTN HLD NIDDMII Hypothyroidism PLAN: -Patient presents with multifactorial anemia and leukopenia with differentials that may include but not limited to GI blood losses, malignancy, Infectious etiology. -Anemia of chronic disease picture due to Low TIBC and elevated Ferritin from CKD -Macrocytosis may be due to possible liver disease -Would recommend Colonoscopy to rule out any malignancy. Especially with his history of laryngeal carcinoma and his father having "stomach cancer" according to patient -Would repeat Chest CT w/contrast as last one on 05/31/2018 revealed 9mm spiculated lung nodule. However, patient reports he has Chest CT done last month in [place]. Would recommend getting medical records from PCP. -Would recommend HIV testing -Patient had flow done 05/2018 and no atypical flow cytometric findings -Will need Procrit and Iron transfusions due to low iron in the setting of anemia of chronic disease secondary to CKD -Would repeat CBC Dispo: We will continue to follow the patient. Thank you for this consultative opportunity. Visit type - Emergency Visit Emergency Visit: Yes ED Registration Date: 09/04/18 Care time: The patient presented to the Emergency Department on the above date and was hospitalized for further evaluation of their emergent condition. - New Patient This patient is new to me today: Yes Date on this admission: 09/05/18 - Critical Care Critical Care patient: No
[2018-09-02] MEDS ORDERED: IRON SUCROSE INJECTION 200 MG in SODIUM CHLORIDE 90 ML IVPB ONE (17:59)
--- NOTE | 2018-09-02 18:56 | PN ---
Teaching Attending Note Name of Resident: Bri Ledbetter ATTENDING PHYSICIAN STATEMENT I saw and evaluated the patient. I reviewed the resident's note and discussed the case with the resident. I agree with the resident's findings and plan as documented. SUBJECTIVE: Patient seen and examined WBC fall after one day Etiology unclear ? lab error- to repeat Of concern --9mm lung nodule reported in 05/31/[address] in patient who continues to smoke and with history of laryngeal ca --s/p RT/chemotherapy. Needs follow up . Anemia likely that of chronic disease- cannot exclude component of blood loss. Would suggest IV venofer as substrate for procrit in the setting of CKD. OBJECTIVE: ASSESSMENT AND PLAN:
[2018-09-02 20:10] LABS: BASO % 0.2 % (0-2.0); HEMATOCRIT 23.1 % (35.4-49); LYMPH % 13.2 % (8-40); MCH 34.7 pg (25.7-33.7); MCHC 34.6 g/dl (32.0-35.9); MEAN CELL VOLUME 100.4 fl (80-96); MEAN PLT VOLUME 9.8 fl (7.5-11.1); MONO % 6.8 % (3.8-10.2); NEUT % 79.8 % (42.8-82.8); PLATELET COUNT 268 K/MM3 (134-434); RDW 25.2 % (11.9-15.9)
[2018-09-02 20:15] LABS: WHITE BLOOD COUNT 1.7 K/mm3 (4.0-10.0)
[2018-09-02] MEDS: SENNOSIDES 8.6MG TABLET (FP) PO SCH (21:06)
[2018-09-02 21:42] LABS: PLATELET ESTIMATE ADEQUATE; TARGET CELLS 1+
[2018-09-03] MEDS: ALBUTEROL SO4 2.5/IPRATROPIUM 0.5 INH SOL 3 ML VIAL.NEB. NEB PRN ×5 (00:26→21:06)
[2018-09-03] MEDS: methylPREDNISolone NA SUCC 40 MG/1 ML VIAL IVPUSH SCH ×2 (02:35→10:14)
[2018-09-03] MEDS: GABAPENTIN 100 MG CAPSULE (FP) PO SCH ×3 (06:39→21:28)
[2018-09-03] MEDS: LEVOTHYROXINE NA 25 MCG TABLET (FP) PO SCH (06:39)
[2018-09-03 08:00] LABS: HEMATOCRIT 23.3 % (35.4-49); HEMOGLOBIN 7.7 GM/dL (11.7-16.9); MCH 33.5 pg (25.7-33.7); MCHC 33.1 g/dl (32.0-35.9); MEAN CELL VOLUME 101.1 fl (80-96); MEAN PLT VOLUME 9.7 fl (7.5-11.1); PLATELET COUNT 224 K/MM3 (134-434); RDW 24.5 % (11.9-15.9); WHITE BLOOD COUNT 2.2 K/mm3 (4.0-10.0)
[2018-09-03 08:33] LABS: ANION GAP 8 MMOL/L (8-16); BLOOD UREA NITROGEN 75 mg/dL (7-18); CALCIUM 8.5 mg/dL (8.5-10.1); CHLORIDE 105 mmol/L (98-107); CO2 22 mmol/L (21-32); CREATININE 2.6 mg/dL (0.55-1.3); GLUCOSE,RANDOM 292 mg/dL (74-106); POTASSIUM 5.4 mmol/L (3.5-5.1); SODIUM 135 mmol/L (136-145)
[2018-09-03] MEDS: TAMSULOSIN HCL 0.4 MG CAP PO SCH (08:36)
[2018-09-03] MEDS: BUDESONIDE/FORMETEROL FUMARATE 160/4.5 mcg INHALER IH SCH ×2 (10:13→21:32)
[2018-09-03] MEDS: POLYETHYLENE GLYCOL 3350 255 GM BTL PO SCH (10:14)
[2018-09-03] MEDS: PANTOPRAZOLE 40 MG TABLET (FP) PO SCH (10:14)
[2018-09-03] MEDS: MULTIVITAMINS (DAILY MVI) TABLET (FP) PO SCH (10:14)
[2018-09-03] MEDS: CYANOCOBALAMIN 1,000 MCG TABLET (FP) PO SCH (10:14)
--- NOTE | 2018-09-03 11:14 | PN ---
Progress Note (short form) - Note Progress Note: RENAL Pt is awake and alert had dyspnea this morning and improved with bronchodilators Last Vital Signs Temp Pulse Resp BP Pulse Ox 98.6 F 74 20 131/84 98 09/03/18 06:00 09/03/18 06:00 09/03/18 06:00 09/03/18 06:00 09/02/18 21:00 lungs decreased breath sounds cvs 1s2 rr abd soft ext no edema, BKA neuro a+ox3 CBC, BMP 09/03/18 06:00 09/03/18 06:00 Current Medications Generic Name Dose Route Start Last Admin Trade Name Freq PRN Reason Stop Dose Admin Albuterol/Ipratropium 1 amp 09/01/18 23:21 09/03/18 06:30 Duoneb - NEB 1 amp Q6H PRN Administration SHORTNESS OF BREATH Budesonide/Formoterol Fumarate 1 puff 09/01/18 22:00 09/03/18 10:13 Symbicort 160/4.5mcg - IH 1 puff BID AURELIO Administration Cyanocobalamin 1,000 mcg 09/02/18 10:00 09/03/18 10:14 Vitamin B12 - PO 1,000 mcg DAILY AURELIO Administration Gabapentin 100 mg 09/01/18 22:00 09/03/18 06:39 Neurontin - PO 100 mg TID AURELIO Administration Levothyroxine Sodium 25 mcg 09/02/18 07:00 09/03/18 06:39 Synthroid - PO 25 mcg DAILY@0700 AURELIO Administration Methylprednisolone Sodium Succinate 40 mg 09/02/18 02:00 09/03/18 10:14 Solu-Medrol - IVPUSH 40 mg Q8H-IV AURELIO Administration Metoprolol Succinate 100 mg 09/02/18 10:00 09/03/18 10:14 Toprol Xl - PO 100 mg DAILY AURELIO Administration Multivitamins/Minerals/Vitamin C 1 tab 09/02/18 10:00 09/03/18 10:14 Tab-A-Vit - PO 1 tab DAILY AURELIO Administration Non-Formulary Medication 2 puff 09/01/18 22:00 Tiotropium Br/Olodaterol Hcl [Stiolto Respimat Inhal [place]] IH BID AURELIO Pantoprazole Sodium 40 mg 09/02/18 10:00 09/03/18 10:14 Protonix - PO 40 mg DAILY AURELIO Administration Polyethylene Glycol 17 gm 09/02/18 10:00 09/03/18 10:14 Miralax (For Bowel Prep) - PO 17 grams DAILY AURELIO Administration Senna 1 tab 09/01/18 22:00 09/02/18 21:06 Senna - PO 1 tab HS AURELIO Administration Tamsulosin HCl 0.4 mg 09/02/18 08:30 09/03/18 08:36 Flomax - PO 0.4 mg DAILY@0830 AURELIO Administration Tramadol HCl 50 mg 09/01/18 17:43 Ultram - PO Q12H PRN PAIN LEVEL 4 - 6 Impression 1. CKD 2. anemia 3. history of hyperkalemia 4. HTN 5. DM 6. hypothyroidism 7. HLD 8. copd exacerbation 9. proteinuria - nephrotic 10. active smoker 11. high transaminases from hepatic congestion? Plan 1. continue bronchodilators and sterods 2. JACKIE for anemia 3. anemia evaluation 4. liver sono MV
--- NOTE | 2018-09-03 14:06 | CON.GI ---
Consult Consult Specialty:: GI - History of Present Illness History of Present Illness: Patient is a 67 year old male with a PMHx of Laryngeal Carcinoma (Diagnosed 2 years ago with 7 weeks of chemotherapy once a week and 33 rounds of RT), COPD, Systolic? CHF, CKD, NIDDMII, HTN, HLD, Hypothyroidism, iron deficiency anemia who presented to the ED complaining of a two day history of shortness of breath associated with a dry cough. - Past Medical History Cardio/Vascular: Yes: HTN Pulmonary: Yes: COPD Renal/: Yes: Renal Inusuff, Other (hyperkalemia) Endocrine: Yes: Diabetes Mellitus, Hypothyroidism - Alcohol/Substance Use Hx Alcohol Use: No History of Substance Use: reports: None - Smoking History Smoking history: Current every day smoker Have you smoked in the past 12 months: Yes Aproximately how many cigarettes per day: 6 - Social History Usual Living Arrangement: Assisted Living History of Recent Travel: No Home Medications - Allergies Allergies/Adverse Reactions: Allergies Allergy/AdvReac Type Severity Reaction Status Date / Time No Known Allergies Allergy Verified 05/29/18 10:03 - Home Medications Home Medications: Ambulatory Orders Atorvastatin Ca [Lipitor] 40 mg PO HS 07/13/18 Cyanocobalamin [Vitamin B12 -] 1,000 mcg PO DAILY 07/13/18 Epoetin Blue [Procrit -] 20,000 unit IJ WEEKLY 07/13/18 Gabapentin [Neurontin -] 100 mg PO Q8H PRN 07/13/18 Levothyroxine [Synthroid -] 25 mcg PO DAILY 07/13/18 Metoprolol Succinate 100 mg PO DAILY 07/13/18 Pantoprazole Sodium 40 mg PO DAILY 07/13/18 Polyethylene Glycol 3350 [Laxaclear] 17 gm PO DAILY 07/13/18 Sennosides [Senna -] 1 tab PO HS 07/13/18 Silver Sulfadiazine 1% Top Cr [Silvadene -] 1 applic TP DAILY 07/13/18 Tamsulosin HCl [Flomax -] 0.4 mg PO DAILY 07/13/18 Tiotropium Br/Olodaterol HCl [Stiolto Respimat Inhal [place]] 2 puff IH BID Budesonide/Formeterol Fumarate [SYMBICORT 160/4.5mcg -] 1 inh PO BID 12/13/18 Multivitamins [Tab-A-Vit -] 1 tab PO DAILY 09/01/18 Tramadol HCl 50 mg PO BID PRN 09/01/18 Physical Exam-GI Vital Signs: Vital Signs Temperature 98.6 F 09/03/18 06:00 Pulse Rate 79 09/03/18 10:00 Respiratory Rate 20 09/03/18 10:00 Blood Pressure 129/62 09/03/18 10:00 O2 Sat by Pulse Oximetry (%) 94 L 09/03/18 09:00 Labs: CBC, BMP 09/03/18 06:00 09/03/18 06:00
--- NOTE | 2018-09-03 14:16 | PN ---
Progress Note (short form) - Note Progress Note: The patient has seen Dr Ni last month and is scheduled for outpatient colonoscopy as an outpatient this September. The patient would like to continue to see him.
--- NOTE | 2018-09-03 14:17 | PN ---
Progress Note, Physician - Current Medication List Current Medications: Active Medications Albuterol/Ipratropium (Duoneb -) 1 amp NEB Q6H PRN PRN Reason: SHORTNESS OF BREATH Last Admin: 09/03/18 11:28 Dose: 1 amp Budesonide/Formoterol Fumarate (Symbicort 160/4.5mcg -) 1 puff IH BID [facility] Last Admin: 09/03/18 10:13 Dose: 1 puff Cyanocobalamin (Vitamin B12 -) 1,000 mcg PO DAILY [facility] Last Admin: 09/03/18 10:14 Dose: 1,000 mcg Gabapentin (Neurontin -) 100 mg PO TID [facility] Last Admin: 09/03/18 06:39 Dose: 100 mg Levothyroxine Sodium (Synthroid -) 25 mcg PO DAILY@0700 [facility] Last Admin: 09/03/18 06:39 Dose: 25 mcg Methylprednisolone Sodium Succinate (Solu-Medrol -) 40 mg IVPUSH BID [facility] Metoprolol Succinate (Toprol Xl -) 100 mg PO DAILY [facility] Last Admin: 09/03/18 10:14 Dose: 100 mg Multivitamins/Minerals/Vitamin C (Tab-A-Vit -) 1 tab PO DAILY [facility] Last Admin: 09/03/18 10:14 Dose: 1 tab Non-Formulary Medication (Tiotropium Br/Olodaterol Hcl [Stiolto Respimat Inhal [place]]) 2 puff IH BID [facility] Pantoprazole Sodium (Protonix -) 40 mg PO DAILY [facility] Last Admin: 09/03/18 10:14 Dose: 40 mg Polyethylene Glycol (Miralax (For Bowel Prep) -) 17 gm PO DAILY [facility] Last Admin: 09/03/18 10:14 Dose: 17 grams Senna (Senna -) 1 tab PO HS [facility] Last Admin: 09/02/18 21:06 Dose: 1 tab Tamsulosin HCl (Flomax -) 0.4 mg PO DAILY@0830 [facility] Last Admin: 09/03/18 08:36 Dose: 0.4 mg Tramadol HCl (Ultram -) 50 mg PO Q12H PRN PRN Reason: PAIN LEVEL 4 - 6 - Objective Vital Signs: Vital Signs Temperature 98.6 F 09/03/18 06:00 Pulse Rate 79 09/03/18 10:00 Respiratory Rate 20 09/03/18 10:00 Blood Pressure 129/62 09/03/18 10:00 O2 Sat by Pulse Oximetry (%) 94 L 09/03/18 09:00 Labs: CBC, BMP 09/03/18 06:00 09/03/18 06:00
--- NOTE | 2018-09-03 14:19 | PN ---
Physical Exam: SUBJECTIVE: Patient seen and examined at the bedside. In no acute distress. feels well, breathing improving. not home oxygen dependent. tolerating diet. denies pain or malaise. patient states he will leave AMA tomorrow night if not discharged. will discuss with GEORGE. I believe his assisted living facility will not take pt over weekend Resides at [facility]. OBJECTIVE: Vital Signs Period Temp Pulse Resp BP Sys/Stoner Pulse Ox Last 24 Hr 98.5 F-99.0 F 69-86 20-20 112-131/62-84 94-98 GENERAL: Awake, alert, and fully oriented, in no acute distress. HEAD: Normal with no signs of trauma. EYES: periorbital edema b/l, pupils equal, round and reactive to light, extraocular movements intact, sclera anicteric, conjunctiva clear. No lid lag. EARS, NOSE, THROAT: Hoarse voice, moist mucus membranes, nares patent, oropharynx clear without exudates NECK: Normal range of motion, supple without lymphadenopathy, JVD, or masses. LUNGS: mild upper lobe wheezing, HEART: Regular rate and rhythm, normal S1 and S2 without murmur, rub or gallop. ABDOMEN: Protuberant, soft, nontender, normoactive bowel sounds, no guarding, no rebound, no masses. No hepatomegaly or splenomegaly. MUSCULOSKELETAL: Normal range of motion at all joints. No bony deformities or tenderness. No CVA tenderness. UPPER EXTREMITIES: 2+ pulses, warm, well-perfused. No cyanosis. No clubbing. No peripheral edema. LOWER EXTREMITIES: Left BKA NEUROLOGICAL: No facial droop, tongue midline, normal speech PSYCHIATRIC: Cooperative. Good eye contact. Appropriate mood and affect. SKIN: Warm, dry, normal turgor, no rashes or lesions noted, normal capillary refill. Laboratory Results - last 24 hr 09/01/18 09/02/18 09/03/18 13:52 19:00 06:00 WBC 1.7 L* 2.2 L RBC 2.30 L 2.30 L Hgb 8.0 L 7.7 L Hct 23.1 L 23.3 L MCV 100.4 H 101.1 H MCH 34.7 H 33.5 MCHC 34.6 33.1 RDW 25.2 H 24.5 H Plt Count 268 224 MPV 9.8 9.7 Absolute Neuts (auto) 1.3 L Total Counted 100 Neutrophils % 79.8 Neutrophils % (Manual) 74.0 Lymphocytes % 13.2 D Lymphocytes % (Manual) 16.0 D Monocytes % 6.8 Monocytes % (Manual) 8 Eosinophils % 0.0 D Basophils % 0.2 Nucleated RBC % 1 H Metamyelocytes 4 H D Hypochromia 1+ Platelet Estimate Adequate Platelet Comment No clumping noted Polychromasia 1+ Basophilic Stippling 1+ Target Cells 1+ Haptoglobin 155 Sodium Potassium Chloride Carbon Dioxide Anion Gap BUN Creatinine Creat Clearance w eGFR Random Glucose Calcium Magnesium Transferrin 132 L HIV 1&2 Antibody Screen HIV P24 Antigen 09/03/18 09/03/18 06:00 06:00 WBC RBC Hgb Hct MCV MCH MCHC RDW Plt Count MPV Absolute Neuts (auto) Total Counted Neutrophils % Neutrophils % (Manual) Lymphocytes % Lymphocytes % (Manual) Monocytes % Monocytes % (Manual) Eosinophils % Basophils % Nucleated RBC % Metamyelocytes Hypochromia Platelet Estimate Platelet Comment Polychromasia Basophilic Stippling Target Cells Haptoglobin Sodium 135 L Potassium 5.4 H Chloride 105 Carbon Dioxide 22 Anion Gap 8 BUN 75 H Creatinine 2.6 H Creat Clearance w eGFR 24.74 Random Glucose 292 H Calcium 8.5 Magnesium 2.0 Transferrin HIV 1&2 Antibody Screen Negative HIV P24 Antigen Negative Active Medications Generic Name Dose Route Start Last Admin Trade Name Freq PRN Reason Stop Dose Admin Albuterol/Ipratropium 1 amp 09/01/18 23:21 09/03/18 11:28 Duoneb - NEB 1 amp Q6H PRN Administration SHORTNESS OF BREATH Budesonide/Formoterol Fumarate 1 puff 09/01/18 22:00 09/03/18 10:13 Symbicort 160/4.5mcg - IH 1 puff BID AURELIO Administration Cyanocobalamin 1,000 mcg 09/02/18 10:00 09/03/18 10:14 Vitamin B12 - PO 1,000 mcg DAILY AURELIO Administration Gabapentin 100 mg 09/01/18 22:00 09/03/18 06:39 Neurontin - PO 100 mg TID AURELIO Administration Levothyroxine Sodium 25 mcg 09/02/18 07:00 09/03/18 06:39 Synthroid - PO 25 mcg DAILY@0700 AURELIO Administration Methylprednisolone Sodium Succinate 40 mg 09/03/18 22:00 Solu-Medrol - IVPUSH BID AURELIO Metoprolol Succinate 100 mg 09/02/18 10:00 09/03/18 10:14 Toprol Xl - PO 100 mg DAILY AURELIO Administration Multivitamins/Minerals/Vitamin C 1 tab 09/02/18 10:00 09/03/18 10:14 Tab-A-Vit - PO 1 tab DAILY AURELIO Administration Non-Formulary Medication 2 puff 09/01/18 22:00 Tiotropium Br/Olodaterol Hcl [Stiolto Respimat Inhal [place]] IH BID AURELIO Pantoprazole Sodium 40 mg 09/02/18 10:00 09/03/18 10:14 Protonix - PO 40 mg DAILY AURELIO Administration Polyethylene Glycol 17 gm 09/02/18 10:00 09/03/18 10:14 Miralax (For Bowel Prep) - PO 17 grams DAILY AURELIO Administration Senna 1 tab 09/01/18 22:00 09/02/18 21:06 Senna - PO 1 tab HS AURELIO Administration Tamsulosin HCl 0.4 mg 09/02/18 08:30 09/03/18 08:36 Flomax - PO 0.4 mg DAILY@0830 AURELIO Administration Tramadol HCl 50 mg 09/01/18 17:43 Ultram - PO Q12H PRN PAIN LEVEL 4 - 6 ASSESSMENT/PLAN: Patient is a 67 year old male with a past medical history significant for laryngeal cancer s/p radiation, COPD, chronic anemia, CKD, DM, HTN, HLD, DM and hypothyroidism. He presented to the ED with 2 days of increasing SOB. CXR with congestive changes, BNP of 34,000 and Hgb 6.3. imaging: Echocardiogram 05/30/2018 showed normal LV size, wall motion and systolic function. Normal RV. Borderline LA dilatation. Mild to moderate MR. No pericardial effusion. Echocardiogram 07/14/18 shows LV moderately dilated. LV systolic fx is mildly reduced. mild global hypokinesis of the LV. RV is normal in size and fx. moderate mitral regurg. mild to mod valvular aortic stenosis. Heme: Symptomatic anemia. Anemia of chronic disease s/p 2 units of prbc. given lasix 40mg between prbc. also given venofer on and procrit. Monitor cbc daily will give another dose of venofer today Patient has outpatient follow up in September with for colonoscopy Continue Protonix daily Pulm: COPD Started on medrol 40mq q6 for wheezing taper down steroids to bid On Symbicort 160/4.5mcg 1 inh PO BID Stiolto Respimat Inhal [place] 2 puff IH BID Nebs PRN Not home oxygen dependent. respiratory pre and post prior to d/c Card: Heart failure, unspecified Presents with BNP of 34k. Echo 05/30/18 shows normal LV size, echo 07/14/18 shoes lv mod. dilated. Patient on Metoprolol. was previously on an bebeto which was stopped 2/ to ckd Will consult cardiology. as patient will need follow up outpatient as well. Hypertension. chronic On Metoprolol succ. 100mg daily. Hld. chronic Statin held for elevated ast/alt. restart with ast/alt wnl Psyche Current everyday smoker. Tabacco cessation discused. Renal: MEENAKSHI on CKD BUN/Cr 66/2.7 -> 69/2.[address]pper [address] Haley. pt for a renal biopsy as outpatient Given lasix x 1 in between prbc transfusion On procrit On a renal diet. Endocrine: DM monitor bgms, start novolog ss [id number] 05/2018 6.0 Hypothyroidism Levothyroxine 25 mcg PO DAILY fen no ivf monitor electrolytes renal diet Prophylaxis GI: Protonix 40 mg PO DAILY Visit type - Emergency Visit Emergency Visit: Yes ED Registration Date: 09/01/18 Care time: The patient presented to the Emergency Department on the above date and was hospitalized for further evaluation of their emergent condition. - New Patient This patient is new to me today: Yes Date on this admission: 09/03/18 - Critical Care Critical Care patient: No - Discharge Referral Referred to [facility] No
[2018-09-03] MEDS ORDERED: SODIUM POLYSTYRENE SULFONATE 15 GM/60 ML BOTTLE PO ONE (15:04)
[2018-09-03] MEDS ORDERED: IRON SUCROSE INJECTION 100 MG in SODIUM CHLORIDE 95 ML IVPB ONE (15:08)
[2018-09-03] MEDS: INSULIN SLIDING SCALE (NOVOLOG) 1 VIAL SQ SCH ×2 (16:43→21:32)
--- NOTE | 2018-09-03 17:08 | PN ---
Progress Note (short form) - Note Progress Note: Patient seen in follow up. No new complaints. No significant events overnight. Inpatient Meds reviewed. Current Medications Generic Name Dose Route Start Last Admin Trade Name Freq PRN Reason Stop Dose Admin Albuterol/Ipratropium 1 amp 09/01/18 23:21 09/03/18 15:28 Duoneb - NEB 1 amp Q6H PRN Administration SHORTNESS OF BREATH Budesonide/Formoterol Fumarate 1 puff 09/01/18 22:00 09/03/18 10:13 Symbicort 160/4.5mcg - IH 1 puff BID AURELIO Administration Cyanocobalamin 1,000 mcg 09/02/18 10:00 09/03/18 10:14 Vitamin B12 - PO 1,000 mcg DAILY AURELIO Administration Gabapentin 100 mg 09/01/18 22:00 09/03/18 14:21 Neurontin - PO 100 mg TID AURELIO Administration Insulin Aspart 1 vial 09/03/18 16:30 09/03/18 16:43 Novolog Vial Sliding Scale - SQ 12 units ACHS AURELIO Administration Protocol Levothyroxine Sodium 25 mcg 09/02/18 07:00 09/03/18 06:39 Synthroid - PO 25 mcg DAILY@0700 AURELIO Administration Methylprednisolone Sodium Succinate 40 mg 09/03/18 22:00 Solu-Medrol - IVPUSH BID AURELIO Metoprolol Succinate 100 mg 09/02/18 10:00 09/03/18 10:14 Toprol Xl - PO 100 mg DAILY AURELIO Administration Multivitamins/Minerals/Vitamin C 1 tab 09/02/18 10:00 09/03/18 10:14 Tab-A-Vit - PO 1 tab DAILY AURELIO Administration Non-Formulary Medication 2 puff 09/01/18 22:00 Tiotropium Br/Olodaterol Hcl [Stiolto Respimat Inhal [place]] IH BID AURELIO Pantoprazole Sodium 40 mg 09/02/18 10:00 09/03/18 10:14 Protonix - PO 40 mg DAILY AURELIO Administration Polyethylene Glycol 17 gm 09/02/18 10:00 09/03/18 10:14 Miralax (For Bowel Prep) - PO 17 grams DAILY AURELIO Administration Senna 1 tab 09/01/18 22:00 09/02/18 21:06 Senna - PO 1 tab HS AURELIO Administration Tamsulosin HCl 0.4 mg 09/02/18 08:30 09/03/18 08:36 Flomax - PO 0.4 mg DAILY@0830 UARELIO Administration Tramadol HCl 50 mg 09/01/18 17:43 Ultram - PO Q12H PRN PAIN LEVEL 4 - 6 On Examination: General: In no acute distress. Extremities: No pallor or icterus. No pedal edema. No palpable lymphadenopathy. CVS: S1, S2, regular, no gallop or murmur. Chest: useing nebulizer presently Abdomen: Non-distended, non-tender, no palpable organomegaly. Neuro: Alert, oriented, non-focal. Labs: CBC, BMP 09/03/18 06:00 09/03/18 06:00 Assessment. Macrocytic anemia and leukopenia - marked nuetropenia yesterday now resolved. Etiology for anemia unclear - very high ferritin noted. Some index of suspicion for myelodysplasia. Supportive transfusion PRN. Will follow
[2018-09-03] MEDS ORDERED: INSULIN (NOVOLOG) ASPART 100 UNITS/ML 10ML VIAL ONE (20:55)
[2018-09-03] MEDS: SENNOSIDES 8.6MG TABLET (FP) PO SCH (21:28)
[2018-09-03] MEDS: traMADol HCL 50 MG TABLET PO PRN (21:28)
[2018-09-03] MEDS ORDERED: methylPREDNISolone NA SUCC 40 MG/1 ML VIAL IVPUSH SCH (22:00)
[2018-09-04] MEDS: GABAPENTIN 100 MG CAPSULE (FP) PO SCH ×3 (05:38→21:40)
[2018-09-04] MEDS: INSULIN SLIDING SCALE (NOVOLOG) 1 VIAL SQ SCH ×4 (06:11→21:41)
[2018-09-04] MEDS: LEVOTHYROXINE NA 25 MCG TABLET (FP) PO SCH (06:12)
[2018-09-04] MEDS: ALBUTEROL SO4 2.5/IPRATROPIUM 0.5 INH SOL 3 ML VIAL.NEB. NEB PRN ×2 (07:20→15:30)
[2018-09-04] MEDS: TAMSULOSIN HCL 0.4 MG CAP PO SCH (07:56)
[2018-09-04 09:05] LABS: EOS % 0.2 % (0-4.5); HEMATOCRIT 22.4 % (35.4-49); HEMOGLOBIN 7.7 GM/dL (11.7-16.9); LYMPH % 5.6 % (8-40); MCHC 34.2 g/dl (32.0-35.9); MEAN CELL VOLUME 102.4 fl (80-96); MEAN PLT VOLUME 9.9 fl (7.5-11.1); MONO % 10.6 % (3.8-10.2); NEUT % 82.6 % (42.8-82.8); PLATELET COUNT 204 K/MM3 (134-434); RBC 2.19 M/mm3 (4.00-5.60); RDW 24.4 % (11.9-15.9); WHITE BLOOD COUNT 3.6 K/mm3 (4.0-10.0)
[2018-09-04 09:26] LABS: ALBUMIN 2.9 g/dl (3.4-5.0); ALK PHOS 82 U/L (45-117); ANION GAP 8 MMOL/L (8-16); BILIRUBIN,TOTAL 0.6 mg/dL (0.2-1); BLOOD UREA NITROGEN 73 mg/dL (7-18); CHLORIDE 108 mmol/L (98-107); CO2 23 mmol/L (21-32); CREATININE 2.4 mg/dL (0.55-1.3); GLUCOSE,RANDOM 258 mg/dL (74-106); MAGNESIUM 1.9 mg/dL (1.8-2.4); POTASSIUM 4.8 mmol/L (3.5-5.1); SGOT/AST 30 U/L (15-37); SGPT/ALT 156 U/L (13-61); SODIUM 139 mmol/L (136-145); TOT PROT 5.8 g/dl (6.4-8.2)
[2018-09-04] MEDS: BUDESONIDE/FORMETEROL FUMARATE 160/4.5 mcg INHALER IH SCH ×2 (09:57→21:42)
[2018-09-04] MEDS: PANTOPRAZOLE 40 MG TABLET (FP) PO SCH (09:58)
[2018-09-04] MEDS: CYANOCOBALAMIN 1,000 MCG TABLET (FP) PO SCH (09:58)
[2018-09-04] MEDS: MULTIVITAMINS (DAILY MVI) TABLET (FP) PO SCH (09:58)
[2018-09-04] MEDS: POLYETHYLENE GLYCOL 3350 255 GM BTL PO SCH (09:58)
[2018-09-04] MEDS ORDERED: methylPREDNISolone NA SUCC 40 MG/1 ML VIAL IVPUSH SCH (10:00)
--- NOTE | 2018-09-04 10:09 | PN ---
Progress Note (short form) - Note Progress Note: RENAL Pt is awake and alert denies complaints says he still smokes though much less than before Last Vital Signs Temp Pulse Resp BP Pulse Ox 97.9 F 74 20 126/85 98 09/04/18 05:55 09/04/18 05:55 09/04/18 05:55 09/04/18 05:55 09/04/18 04:00 lungs decreased breath sounds, no wheezes cvs 1s2 rr abd soft ext no edema, BKA neuro a+ox3 CBC, BMP 09/04/18 09:00 09/04/18 09:00 Current Medications Generic Name Dose Route Start Last Admin Trade Name Freq PRN Reason Stop Dose Admin Albuterol/Ipratropium 1 amp 09/01/18 23:21 09/04/18 07:20 Duoneb - NEB 1 amp Q6H PRN Administration SHORTNESS OF BREATH Budesonide/Formoterol Fumarate 1 puff 09/01/18 22:00 09/04/18 09:57 Symbicort 160/4.5mcg - IH 1 puff BID AURELIO Administration Cyanocobalamin 1,000 mcg 09/02/18 10:00 09/04/18 09:58 Vitamin B12 - PO 1,000 mcg DAILY AURELIO Administration Gabapentin 100 mg 09/01/18 22:00 09/04/18 05:38 Neurontin - PO 100 mg TID AURELIO Administration Insulin Aspart 1 vial 09/03/18 16:30 09/04/18 06:11 Novolog Vial Sliding Scale - SQ 6 units ACHS AURELIO Administration Protocol Levothyroxine Sodium 25 mcg 09/02/18 07:00 09/04/18 06:12 Synthroid - PO 25 mcg DAILY@0700 AURELIO Administration Methylprednisolone Sodium Succinate 40 mg 09/04/18 10:00 09/04/18 09:57 Solu-Medrol - IVPUSH 40 mg DAILY AURELIO Administration Metoprolol Succinate 100 mg 09/02/18 10:00 09/04/18 09:58 Toprol Xl - PO 100 mg DAILY AURELIO Administration Multivitamins/Minerals/Vitamin C 1 tab 09/02/18 10:00 09/04/18 09:58 Tab-A-Vit - PO 1 tab DAILY AURELIO Administration Non-Formulary Medication 2 puff 09/01/18 22:00 Tiotropium Br/Olodaterol Hcl [Stiolto Respimat Inhal [place]] IH BID AURELIO Pantoprazole Sodium 40 mg 09/02/18 10:00 09/04/18 09:58 Protonix - PO 40 mg DAILY AURELIO Administration Polyethylene Glycol 17 gm 09/02/18 10:00 09/04/18 09:58 Miralax (For Bowel Prep) - PO 17 grams DAILY AURELIO Administration Senna 1 tab 09/01/18 22:00 09/03/18 21:28 Senna - PO 1 tab HS AURELIO Administration Tamsulosin HCl 0.4 mg 09/02/18 08:30 09/04/18 07:56 Flomax - PO 0.4 mg DAILY@0830 AURELIO Administration Tramadol HCl 50 mg 09/01/18 17:43 09/03/18 21:28 Ultram - PO 50 mg Q12H PRN Administration PAIN LEVEL 4 - 6 Impression 1. CKD 2. anemia 3. history of hyperkalemia 4. HTN 5. DM 6. hypothyroidism 7. HLD 8. copd exacerbation 9. proteinuria - nephrotic 10. active smoker 11. high transaminases from hepatic congestion?- improving Plan 1. continue bronchodilators and sterods 2. JACKIE for anemia 3. anemia evaluation 4. for biopsy after holidays MV
--- NOTE | 2018-09-04 13:05 | CON.CARD ---
Consult Consult Specialty:: Cardiology Referred by:: Hospitalist Medicine Reason for Consultation:: Dyspnea - History of Present Illness Chief Complaint: Dyspnea History of Present Illness: 67 year-old man, smoker, with a PMHx of HTN, DM, PVD, s/p left BKA, mod-severe COPD, RUL nodule CKD, anemia on epogen presented to the ER with worsening SOB, profound anemia Hgb 6.3 transfused with improvement in symptoms, receiving IV Venofer, denies chest pain, near or true syncope, palpitations, orthopnea, PND or LE edema. He sees Tello Manzano MD for cardiology [phone] - History Source History Provided By: Patient Limitations to Obtaining History: No Limitations - Past Medical History Cardio/Vascular: Yes: HTN Pulmonary: Yes: COPD Renal/: Yes: Renal Inusuff, Other (hyperkalemia) Endocrine: Yes: Diabetes Mellitus, Hypothyroidism - Alcohol/Substance Use Hx Alcohol Use: No History of Substance Use: reports: None - Smoking History Smoking history: Current every day smoker Have you smoked in the past 12 months: Yes Aproximately how many cigarettes per day: 6 - Social History Usual Living Arrangement: Assisted Living History of Recent Travel: No Home Medications - Allergies Allergies/Adverse Reactions: Allergies Allergy/AdvReac Type Severity Reaction Status Date / Time No Known Allergies Allergy Verified 05/29/18 10:03 - Home Medications Home Medications: Ambulatory Orders Atorvastatin Ca [Lipitor] 40 mg PO HS 07/13/18 Cyanocobalamin [Vitamin B12 -] 1,000 mcg PO DAILY 07/13/18 Epoetin Blue [Procrit -] 20,000 unit IJ WEEKLY 07/13/18 Gabapentin [Neurontin -] 100 mg PO Q8H PRN 07/13/18 Levothyroxine [Synthroid -] 25 mcg PO DAILY 07/13/18 Metoprolol Succinate 100 mg PO DAILY 07/13/18 Pantoprazole Sodium 40 mg PO DAILY 07/13/18 Polyethylene Glycol 3350 [Laxaclear] 17 gm PO DAILY 07/13/18 Sennosides [Senna -] 1 tab PO HS 07/13/18 Silver Sulfadiazine 1% Top Cr [Silvadene -] 1 applic TP DAILY 07/13/18 Tamsulosin HCl [Flomax -] 0.4 mg PO DAILY 07/13/18 Tiotropium Br/Olodaterol HCl [Stiolto Respimat Inhal [place]] 2 puff IH BID Budesonide/Formeterol Fumarate [SYMBICORT 160/4.5mcg -] 1 inh PO BID 09/01/18 Multivitamins [Tab-A-Vit -] 1 tab PO DAILY 09/01/18 Tramadol HCl 50 mg PO BID PRN 09/01/18 Review of Systems - Review of Systems Respiratory: reports: Exercise Intolerance, SOB on Exertion Vital Signs: Vital Signs Temperature 97.9 F 09/04/18 05:55 Pulse Rate 74 09/04/18 09:00 Respiratory Rate 20 09/04/18 09:00 Blood Pressure 115/84 09/04/18 09:00 O2 Sat by Pulse Oximetry (%) 94 L 09/04/18 10:00 Constitutional: Yes: No Distress, Calm Neck: Yes: Supple Respiratory: Yes: Regular, Diminished Gastrointestinal: Yes: Normal Bowel Sounds, Soft Cardiovascular: Yes: Regular Rate and Rhythm JVD: No Carotid Bruit: No Heart Sounds: Yes: S1, S2 Murmur: Yes: Systolic Murmur, Grade 2 Extremities: Yes: Amputation (Left BKA) Edema: No - Other Data Labs, Other Data: CBC, BMP 09/04/18 09:00 09/04/18 09:00 NSR @ 69 IRBBB, LAD Ejection Fraction %: LVEF > or = 40 % Imaging - Results Chest X-ray: Report Reviewed (Mild congestion, right effusion) Problem List - Problems (1) Anemia Code(s): D64.9 - ANEMIA, UNSPECIFIED Qualifiers: Anemia type: other cause Other causes of anemia: other cause, not classified Qualified Code(s): D64.89 - Other specified anemias (2) COPD exacerbation Code(s): J44.1 - CHRONIC OBSTRUCTIVE PULMONARY DISEASE W (ACUTE) EXACERBATION (3) Shortness of breath Code(s): R06.02 - SHORTNESS OF BREATH (4) CKD (chronic kidney disease) Code(s): N18.9 - CHRONIC KIDNEY DISEASE, UNSPECIFIED Qualifiers: Chronic kidney disease stage: stage 3 (moderate) Qualified Code(s): N18.3 - Chronic kidney disease, stage 3 (moderate) (5) Hypothyroid Code(s): E03.9 - HYPOTHYROIDISM, UNSPECIFIED Qualifiers: Hypothyroidism type: unspecified Qualified Code(s): E03.9 - Hypothyroidism , unspecified (6) Diastolic dysfunction Code(s): I51.9 - HEART DISEASE, UNSPECIFIED (7) Moderate aortic stenosis Code(s): I35.0 - NONRHEUMATIC AORTIC (VALVE) STENOSIS Assessment/Plan Echocardiogram 05/30/2018 showed normal LV size, wall motion and systolic function. Normal RV. Borderline LA dilatation. Moderate with SADAF = 0.93cm2, PG = 33.3 mmHg, MG = 21.3 mmHg. Mild to moderate MR. No pericardial effusion. 1. BRAGG referable to profound anemia improved post transfusion, ? MDS 2. Diastolic dysfunction with moderate 3. CKD with proteinuria - nephrotic 4. HTN 5. DM 6. hypothyroidism 7. HLD 8. Mod-severe copd 9. active smoker 10. high transaminases from hepatic congestion?- improving 11. 9 mm RUL pulm nodule, h/o laryngeal ca s/p XRT and chemo Plan 1. Continue bronchodilators, sterods, O2 as needed, empiric abx, f/u chest CT 2. JACKIE for anemia, IV Venofer 3. Continue Lipitor 40 qhs, Toprol XL 100 qd 4. Check outpatient records in AM 5. Thank you for consultative opportunity
--- NOTE | 2018-09-04 13:26 | PN ---
Progress Note, Physician - Current Medication List Current Medications: Active Medications Albuterol/Ipratropium (Duoneb -) 1 amp NEB Q6H PRN PRN Reason: SHORTNESS OF BREATH Last Admin: 09/04/18 07:20 Dose: 1 amp Budesonide/Formoterol Fumarate (Symbicort 160/4.5mcg -) 1 puff IH BID [facility] Last Admin: 09/04/18 09:57 Dose: 1 puff Cyanocobalamin (Vitamin B12 -) 1,000 mcg PO DAILY [facility] Last Admin: 09/04/18 09:58 Dose: 1,000 mcg Gabapentin (Neurontin -) 100 mg PO TID [facility] Last Admin: 09/04/18 05:38 Dose: 100 mg Insulin Aspart (Novolog Vial Sliding Scale -) 1 vial SQ ACHS [facility]; Protocol Last Admin: 09/04/18 06:11 Dose: 6 units Levothyroxine Sodium (Synthroid -) 25 mcg PO DAILY@0700 [facility] Last Admin: 09/04/18 06:12 Dose: 25 mcg Methylprednisolone Sodium Succinate (Solu-Medrol -) 40 mg IVPUSH DAILY [facility] Last Admin: 09/04/18 09:57 Dose: 40 mg Metoprolol Succinate (Toprol Xl -) 100 mg PO DAILY [facility] Last Admin: 09/04/18 09:58 Dose: 100 mg Multivitamins/Minerals/Vitamin C (Tab-A-Vit -) 1 tab PO DAILY [facility] Last Admin: 09/04/18 09:58 Dose: 1 tab Non-Formulary Medication (Tiotropium Br/Olodaterol Hcl [Stiolto Respimat Inhal [place]]) 2 puff IH BID [facility] Pantoprazole Sodium (Protonix -) 40 mg PO DAILY [facility] Last Admin: 09/04/18 09:58 Dose: 40 mg Polyethylene Glycol (Miralax (For Bowel Prep) -) 17 gm PO DAILY [facility] Last Admin: 09/04/18 09:58 Dose: 17 grams Senna (Senna -) 1 tab PO HS [facility] Last Admin: 09/03/18 21:28 Dose: 1 tab Tamsulosin HCl (Flomax -) 0.4 mg PO DAILY@0830 [facility] Last Admin: 09/04/18 07:56 Dose: 0.4 mg Tramadol HCl (Ultram -) 50 mg PO Q12H PRN PRN Reason: PAIN LEVEL 4 - 6 Last Admin: 09/03/18 21:28 Dose: 50 mg - Objective Vital Signs: Vital Signs Temperature 97.9 F 09/04/18 05:55 Pulse Rate 74 09/04/18 09:00 Respiratory Rate 20 09/04/18 09:00 Blood Pressure 115/84 09/04/18 09:00 O2 Sat by Pulse Oximetry (%) 94 L 09/04/18 10:00 Labs: CBC, BMP 09/04/18 09:00 09/04/18 09:00
--- NOTE | 2018-09-04 15:26 | PN ---
Physical Exam: SUBJECTIVE: Patient seen and examined at the bedside. speaking clearly in full sentences without conversational dyspnea. feels better and tolerating room air. OBJECTIVE: patient is willing to stay tonight (previously wanted to stay AMA), but wants to leave by tomorrow for a social security meeting at his facility by 10:a.m. Vital Signs Period Temp Pulse Resp BP Sys/Stoner Pulse Ox Last 24 Hr 97.9 F-98.7 F 74-88 20-22 115-131/76-85 93-99 GENERAL: Awake, alert, and fully oriented, in no acute distress. HEAD: Normal with no signs of trauma. EYES: periorbital edema b/l, pupils equal, round and reactive to light, extraocular movements intact, sclera anicteric, conjunctiva clear. No lid lag. EARS, NOSE, THROAT: Hoarse voice, moist mucus membranes, nares patent, oropharynx clear without exudates NECK: Normal range of motion, supple without lymphadenopathy, JVD, or masses. LUNGS: diminished but mostly clear to auscultation HEART: Regular rate and rhythm, normal S1 and S2 without murmur, rub or gallop. ABDOMEN: Protuberant, soft, nontender, normoactive bowel sounds, no guarding, no rebound, no masses. No hepatomegaly or splenomegaly. MUSCULOSKELETAL: Normal range of motion at all joints. No bony deformities or tenderness. No CVA tenderness. UPPER EXTREMITIES: No peripheral edema. LOWER EXTREMITIES: Left BKA NEUROLOGICAL: No facial droop, tongue midline, normal speech PSYCHIATRIC: Cooperative. Good eye contact. Appropriate mood and affect. SKIN: Warm, dry, normal turgor, no rashes or lesions noted, normal capillary refill. Laboratory Results - last 24 hr 09/03/18 09/03/18 09/04/18 17:21 21:25 05:36 WBC RBC Hgb Hct MCV MCH MCHC RDW Plt Count MPV Absolute Neuts (auto) Neutrophils % Lymphocytes % Monocytes % Eosinophils % Basophils % Nucleated RBC % Sodium Potassium Chloride Carbon Dioxide Anion Gap BUN Creatinine Creat Clearance w eGFR POC Glucometer 231 298 Random Glucose 349 H* Hemoglobin A1c % Calcium Magnesium Total Bilirubin AST ALT Alkaline Phosphatase Total Protein Albumin 09/04/18 09/04/18 09/04/18 09:00 09:00 09:00 WBC 3.6 L RBC 2.19 L Hgb 7.7 L Hct 22.4 L MCV 102.4 H MCH 35.0 H MCHC 34.2 RDW 24.4 H Plt Count 204 MPV 9.9 Absolute Neuts (auto) 3.0 Neutrophils % 82.6 Lymphocytes % 5.6 L D Monocytes % 10.6 H Eosinophils % 0.2 D Basophils % 1.0 D Nucleated RBC % 0 Sodium 139 Potassium 4.8 Chloride 108 H Carbon Dioxide 23 Anion Gap 8 BUN 73 H Creatinine 2.4 H Creat Clearance w eGFR 27.14 POC Glucometer Random Glucose 258 H Hemoglobin A1c % 7.0 H Calcium 8.0 L Magnesium 1.9 Total Bilirubin 0.6 AST 30 ALT 156 H Alkaline Phosphatase 82 Total Protein 5.8 L Albumin 2.9 L 09/04/18 11:46 WBC RBC Hgb Hct MCV MCH MCHC RDW Plt Count MPV Absolute Neuts (auto) Neutrophils % Lymphocytes % Monocytes % Eosinophils % Basophils % Nucleated RBC % Sodium Potassium Chloride Carbon Dioxide Anion Gap BUN Creatinine Creat Clearance w eGFR POC Glucometer 305 Random Glucose Hemoglobin A1c % Calcium Magnesium Total Bilirubin AST ALT Alkaline Phosphatase Total Protein Albumin Active Medications Generic Name Dose Route Start Last Admin Trade Name Freq PRN Reason Stop Dose Admin Albuterol/Ipratropium 1 amp 09/01/18 23:21 09/04/18 07:20 Duoneb - NEB 1 amp Q6H PRN Administration SHORTNESS OF BREATH Budesonide/Formoterol Fumarate 1 puff 09/01/18 22:00 09/04/18 09:57 Symbicort 160/4.5mcg - IH 1 puff BID AURELIO Administration Cyanocobalamin 1,000 mcg 09/02/18 10:00 09/04/18 09:58 Vitamin B12 - PO 1,000 mcg DAILY AURELIO Administration Gabapentin 100 mg 09/01/18 22:00 09/04/18 13:58 Neurontin - PO 100 mg TID AURELIO Administration Insulin Aspart 1 vial 09/03/18 16:30 09/04/18 12:00 Novolog Vial Sliding Scale - SQ 8 units ACHS AURELIO Administration Protocol Levothyroxine Sodium 25 mcg 09/02/18 07:00 09/04/18 06:12 Synthroid - PO 25 mcg DAILY@0700 AURELIO Administration Methylprednisolone Sodium Succinate 40 mg 09/04/18 10:00 09/04/18 09:57 Solu-Medrol - IVPUSH 40 mg DAILY AURELIO Administration Metoprolol Succinate 100 mg 09/02/18 10:00 09/04/18 09:58 Toprol Xl - PO 100 mg DAILY AURELIO Administration Multivitamins/Minerals/Vitamin C 1 tab 09/02/18 10:00 09/04/18 09:58 Tab-A-Vit - PO 1 tab DAILY AURELIO Administration Non-Formulary Medication 2 puff 09/01/18 22:00 Tiotropium Br/Olodaterol Hcl [Stiolto Respimat Inhal [place]] IH BID AURELIO Pantoprazole Sodium 40 mg 09/02/18 10:00 09/04/18 09:58 Protonix - PO 40 mg DAILY AURELIO Administration Polyethylene Glycol 17 gm 09/02/18 10:00 09/04/18 09:58 Miralax (For Bowel Prep) - PO 17 grams DAILY AURELIO Administration Senna 1 tab 09/01/18 22:00 09/03/18 21:28 Senna - PO 1 tab HS AURELIO Administration Tamsulosin HCl 0.4 mg 09/02/18 08:30 09/04/18 07:56 Flomax - PO 0.4 mg DAILY@0830 AURELIO Administration Tramadol HCl 50 mg 09/01/18 17:43 09/03/18 21:28 Ultram - PO 50 mg Q12H PRN Administration PAIN LEVEL 4 - 6 ASSESSMENT/PLAN: Patient is a 67 year old male with a past medical history significant for laryngeal cancer s/p radiation/and RT, COPD, chronic anemia, CKD, DM, HTN, HLD, DM and hypothyroidism. He presented to the ED with 2 days of increasing SOB. CXR with congestive changes, BNP of 34,000 and Hgb 6.3. Also noted was a 9mm lung nodule seen on chest CT of 05/31/[address]. Patient is following up at [facility] outpatient and had a recent pet scan with facility. He is not aware of the results. He will continue to follow up outpatient. imaging: Echocardiogram 05/30/2018 showed normal LV size, wall motion and systolic function. Normal RV. Borderline LA dilatation. Mild to moderate MR. No pericardial effusion. Echocardiogram 07/14/18 shows LV moderately dilated. LV systolic fx is mildly reduced. mild global hypokinesis of the LV. RV is normal in size and fx. moderate mitral regurg. mild to mod valvular aortic stenosis. Heme: Symptomatic anemia. Anemia of chronic disease. patient presented with shortness of breath on admission. now improved with oxygen therapy, duonebs and steriods. He has also been transfused 2 units of prbc. hmg/hct remains low but same as yesterday. He will be given venofer. dose #3 today. Monitor cbc daily Patient has outpatient follow up in September with for colonoscopy Continue Protonix daily hematology consulted outpatient Pulm: COPD Started on medrol 40mq q6 for wheezing. will taper off to daily then stop. On Symbicort 160/4.5mcg 1 inh PO BID Stiolto Respimat Inhal [place] 2 puff IH BID Nebs PRN Not home oxygen dependent. respiratory pre and post prior to d/c Card: Heart failure, unspecified Presents with BNP of 34k. Echo 05/30/18 shows normal LV size, echo 07/14/18 shoes lv mod. dilated. Patient on Metoprolol. was previously on an bebeto which was stopped 2/2 to ckd Patient to follow up with cardiology outpatient Hypertension. chronic On Metoprolol succ. 100mg daily. Hld. chronic Statin held for elevated ast/alt. restart with ast/alt wnl Psyche Current everyday smoker. Tabacco cessation discussed. refusing nicotine patch. Renal: MEENAKSHI on CKD BUN/Cr 66/2.7 -> 69/2.4 followed by professor of engineering Dr. Haley. pt for a renal biopsy as outpatient Given lasix x 1 in between prbc transfusion On procrit On a renal diet. Onc: Also noted was a 9mm lung nodule seen on chest CT of 05/31/[address] Patient is following up at [facility] outpatient and had a recent pet scan with facility. He is not aware of the results. He will continue to follow up outpatient. Endocrine: DM monitor bgms, start novolog ss hmga1c 05/2018 6.0, hmg a1c 09/04/18 7.0. monitor in the setting of steriods Hypothyroidism Levothyroxine 25 mcg PO DAILY fen no ivf monitor electrolytes low salt diet/renal diet prophy protonix Visit type - Emergency Visit Emergency Visit: Yes ED Registration Date: 09/04/18 Care time: The patient presented to the Emergency Department on the above date and was hospitalized for further evaluation of their emergent condition. - New Patient This patient is new to me today: No - Critical Care Critical Care patient: No - Discharge Referral Referred to [facility] Med P.C.: No
[2018-09-04] MEDS ORDERED: IRON SUCROSE INJECTION 100 MG in SODIUM CHLORIDE 95 ML IVPB ONE (15:31)
--- NOTE | 2018-09-04 16:03 | PN ---
Progress Note (short form) - Note Progress Note: Patient seen in follow up. No new complaints. No significant events overnight. Inpatient Meds reviewed. Current Medications Generic Name Dose Route Start Last Admin Trade Name Freq PRN Reason Stop Dose Admin Albuterol/Ipratropium 1 amp 09/01/18 23:21 09/03/18 15:28 Duoneb - NEB 1 amp Q6H PRN Administration SHORTNESS OF BREATH Budesonide/Formoterol Fumarate 1 puff 09/01/18 22:00 09/03/18 10:13 Symbicort 160/4.5mcg - IH 1 puff BID AURELIO Administration Cyanocobalamin 1,000 mcg 09/02/18 10:00 09/03/18 10:14 Vitamin B12 - PO 1,000 mcg DAILY AURELIO Administration Gabapentin 100 mg 09/01/18 22:00 09/03/18 14:21 Neurontin - PO 100 mg TID AURELIO Administration Insulin Aspart 1 vial 09/03/18 16:30 09/03/18 16:43 Novolog Vial Sliding Scale - SQ 12 units ACHS AURELIO Administration Protocol Levothyroxine Sodium 25 mcg 09/02/18 07:00 09/03/18 06:39 Synthroid - PO 25 mcg DAILY@0700 AURELIO Administration Methylprednisolone Sodium Succinate 40 mg 09/03/18 22:00 Solu-Medrol - IVPUSH BID AURELIO Metoprolol Succinate 100 mg 09/02/18 10:00 09/03/18 10:14 Toprol Xl - PO 100 mg DAILY AURELIO Administration Multivitamins/Minerals/Vitamin C 1 tab 09/02/18 10:00 09/03/18 10:14 Tab-A-Vit - PO 1 tab DAILY AURELIO Administration Non-Formulary Medication 2 puff 09/01/18 22:00 Tiotropium Br/Olodaterol Hcl [Stiolto Respimat Inhal [place]] IH BID AURELIO Pantoprazole Sodium 40 mg 09/02/18 10:00 09/03/18 10:14 Protonix - PO 40 mg DAILY AURELIO Administration Polyethylene Glycol 17 gm 09/02/18 10:00 09/03/18 10:14 Miralax (For Bowel Prep) - PO 17 grams DAILY AURELIO Administration Senna 1 tab 09/01/18 22:00 09/02/18 21:06 Senna - PO 1 tab HS AURELIO Administration Tamsulosin HCl 0.4 mg 09/02/18 08:30 09/03/18 08:36 Flomax - PO 0.4 mg DAILY@0830 AURELIO Administration Tramadol HCl 50 mg 09/01/18 17:43 Ultram - PO Q12H PRN PAIN LEVEL 4 - 6 On Examination: Last Vital Signs Temp Pulse Resp BP Pulse Ox 98.7 F 75 20 129/83 94 L 09/04/18 15:23 09/04/18 15:23 09/04/18 15:23 09/04/18 15:23 09/04/18 10:00 General: In no acute distress. Extremities: No pallor or icterus. No pedal edema. No palpable lymphadenopathy. CVS: S1, S2, regular, no gallop or murmur. Chest: breathing more comfortably today Abdomen: Non-distended, non-tender, no palpable organomegaly. Neuro: Alert, oriented, non-focal. Labs: CBC, BMP 09/04/18 09:00 09/04/18 09:00 Assessment. Macrocytic anemia and leukopenia - marked prior neutropenia yesterday now resolved. Etiology for anemia unclear - very high ferritin noted. Some index of suspicion for myelodysplasia. Supportive transfusion PRN. Will follow
[2018-09-04] MEDS: traMADol HCL 50 MG TABLET PO PRN (21:40)
[2018-09-04] MEDS: SENNOSIDES 8.6MG TABLET (FP) PO SCH (21:40)
[2018-09-05] MEDS: ALBUTEROL SO4 2.5/IPRATROPIUM 0.5 INH SOL 3 ML VIAL.NEB. NEB PRN ×3 (01:06→15:42)
[2018-09-05] MEDS: INSULIN SLIDING SCALE (NOVOLOG) 1 VIAL SQ SCH ×3 (06:12→17:46)
[2018-09-05] MEDS: LEVOTHYROXINE NA 25 MCG TABLET (FP) PO SCH (06:12)
[2018-09-05] MEDS: GABAPENTIN 100 MG CAPSULE (FP) PO SCH ×2 (06:12→14:05)
[2018-09-05] MEDS: TAMSULOSIN HCL 0.4 MG CAP PO SCH (08:17)
[2018-09-05 11:03] LABS: BASO % 0.2 % (0-2.0); HEMATOCRIT 24.3 % (35.4-49); HEMOGLOBIN 7.9 GM/dL (11.7-16.9); LYMPH % 8.3 % (8-40); MCH 33.8 pg (25.7-33.7); MCHC 32.5 g/dl (32.0-35.9); MEAN CELL VOLUME 103.9 fl (80-96); MEAN PLT VOLUME 9.6 fl (7.5-11.1); MONO % 20.7 % (3.8-10.2); NEUT % 70.8 % (42.8-82.8); PLATELET COUNT 186 K/MM3 (134-434); RBC 2.34 M/mm3 (4.00-5.60); RDW 24.4 % (11.9-15.9); WHITE BLOOD COUNT 7.6 K/mm3 (4.0-10.0)
[2018-09-05] MEDS: MULTIVITAMINS (DAILY MVI) TABLET (FP) PO SCH (11:06)
[2018-09-05] MEDS: CYANOCOBALAMIN 1,000 MCG TABLET (FP) PO SCH (11:06)
[2018-09-05] MEDS: POLYETHYLENE GLYCOL 3350 255 GM BTL PO SCH (11:07)
[2018-09-05] MEDS: PANTOPRAZOLE 40 MG TABLET (FP) PO SCH (11:07)
--- NOTE | 2018-09-05 11:44 | DS ---
Physical Exam: SUBJECTIVE: Patient seen and examined at the bedside. Denies pain or discomfort. explained to patient that he will need home oxygen therapy since his oxygen saturations are only at 85% when he ambulates. He will continue to require the nebulizer treatments He will require 3 liters of oxygen with portability. PT at rest without oxygen is 93%, without oxygen during exercise he is 85%. With oxygen during exercise he is 93%. Discussed importance of smoking cessation OBJECTIVE: Vital Signs Period Temp Pulse Resp BP Sys/Stoner Pulse Ox Last 24 Hr 98.2 F-99.3 F 71-80 18-20 102-138/60-83 93-93 PHYSICAL EXAM GENERAL: Awake, alert, and fully oriented, in no acute distress. HEAD: Normal with no signs of trauma. EYES: periorbital edema b/l, pupils equal, round and reactive to light, extraocular movements intact, sclera anicteric, conjunctiva clear. No lid lag. EARS, NOSE, THROAT: Hoarse voice, moist mucus membranes, nares patent, oropharynx clear without exudates NECK: Normal range of motion, supple without lymphadenopathy, JVD, or masses. LUNGS: diminished but mostly clear to auscultation HEART: Regular rate and rhythm, normal S1 and S2 without murmur, rub or gallop. ABDOMEN: Protuberant, soft, nontender, normoactive bowel sounds, no guarding, no rebound, no masses. No hepatomegaly or splenomegaly. MUSCULOSKELETAL: Normal range of motion at all joints. No bony deformities or tenderness. No CVA tenderness. UPPER EXTREMITIES: No peripheral edema. LOWER EXTREMITIES: Left BKA NEUROLOGICAL: No facial droop, tongue midline, normal speech PSYCHIATRIC: Cooperative. Good eye contact. Appropriate mood and affect. SKIN: Warm, dry, normal turgor, no rashes or lesions noted, normal capillary refill. LABS Laboratory Results - last 24 hr 09/01/18 09/03/18 09/04/18 13:48 16:18 11:46 WBC RBC Hgb Hct MCV MCH MCHC RDW Plt Count MPV Absolute Neuts (auto) Neutrophils % Lymphocytes % Monocytes % Eosinophils % Basophils % Nucleated RBC % POC Glucometer > 400 305 Blood Type A POSITIVE Antibody Screen Negative Crossmatch See Detail 09/04/18 09/04/18 09/05/18 16:41 21:39 06:11 WBC RBC Hgb Hct MCV MCH MCHC RDW Plt Count MPV Absolute Neuts (auto) Neutrophils % Lymphocytes % Monocytes % Eosinophils % Basophils % Nucleated RBC % POC Glucometer 278 289 185 Blood Type Antibody Screen Crossmatch 09/05/18 10:30 WBC 7.6 RBC 2.34 L Hgb 7.9 L Hct 24.3 L MCV 103.9 H MCH 33.8 H MCHC 32.5 RDW 24.4 H Plt Count 186 MPV 9.6 Absolute Neuts (auto) 5.4 Neutrophils % 70.8 Lymphocytes % 8.3 D Monocytes % 20.7 H D Eosinophils % 0.0 D Basophils % 0.2 Nucleated RBC % 0 POC Glucometer Blood Type Antibody Screen Crossmatch HOSPITAL COURSE: Date of Admission:09/04/18 Date of Discharge: 09/05/18 Patient is a 67 year old male with a past medical history significant for laryngeal cancer s/p radiation/and RT, COPD, chronic anemia, CKD, DM, HTN, HLD, DM and hypothyroidism. He presented to the ED with 2 days of increasing SOB. CXR with congestive changes, BNP of 34,000 and Hgb 6.3. Also noted was a 9mm lung nodule seen on chest CT of 05/31/[address]. Patient is following up at [facility] outpatient and had a recent pet scan with facility. He is not aware of the results. He will continue to follow up outpatient. imaging: Echocardiogram 05/30/2018 showed normal LV size, wall motion and systolic function. Normal RV. Borderline LA dilatation. Mild to moderate MR. No pericardial effusion. Echocardiogram 07/14/18 shows LV moderately dilated. LV systolic fx is mildly reduced. mild global hypokinesis of the LV. RV is normal in size and fx. moderate mitral regurg. mild to mod valvular aortic stenosis. Heme: Symptomatic anemia. resolved. Anemia of chronic disease. chronic patient presented with shortness of breath on admission. now improved with oxygen therapy, duonebs and steriods. He has also been transfused 2 units of prbc. hmg/hct improving. He was given venofer, total 3 doses. Monitor cbc within 3-5 days after discharge. Patient has outpatient follow up in September with for colonoscopy Continue Protonix daily hematology consulted outpatient Pulm: COPD Started on medrol 40mq q6 for wheezing. steriods tapered down and have been discontinued. On Symbicort 160/4.5mcg 1 inh PO BID Stiolto Respimat Inhal [place] 2 puff IH BID Nebs PRN Not home oxygen dependent. respiratory pre and post shows low oxygen saturations with ambulation. will require oxygen home therapy. Card: Heart failure, unspecified Presents with BNP of 34k. Echo 05/30/18 shows normal LV size, echo 07/14/18 shoes lv mod. dilated. Patient on Metoprolol. was previously on an bebeto which was stopped 2/2 to ckd Patient to follow up with cardiology outpatient Hypertension. chronic On Metoprolol succ. 100mg daily. Hld. chronic Statin held for elevated ast/alt. Monitor cmp with PCP and restart once liver enzymes are normal. Psyche Current everyday smoker. Tabacco cessation discussed. refusing nicotine patch. Renal: MEENAKSHI on CKD BUN/Cr 66/2.7 -> 69/2.[address] Haley. pt for a renal biopsy as outpatient On procrit On a renal diet. Onc: Lung nodule Also noted was a 9mm lung nodule seen on chest CT of 05/31/[address] Patient is following up at [facility] outpatient and had a recent pet scan with facility. He will continue to follow up outpatient. Endocrine: DM monitor bgms, started novolog ss hmga1c 05/2018 6.0, hmg a1c 09/04/18 7.0. Will be sent home on Januvia daily and a new glucometer. patient has used a glucometer before and is familiar with their use. Hypothyroidism Levothyroxine 25 mcg PO DAILY Discharge back to [facility]. Will need the following follow up: 1. hematology outpatient follow up (referral in discharge packet) 2. cardiology follow up. 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 Patient will need to have a colonscopy with Dr. Ni. This has been set up for September 2018. 4. Patient to follow up with Dr. Haley for planned kidney biopsy in 2019. Minutes to complete discharge: 60 Discharge Summary Reason For Visit: SOB/ANEMIA Current Active Problems Anemia (Acute) COPD exacerbation (Acute) Cardiomyopathy as manifestation of underlying disease (Acute) Diastolic dysfunction (Acute) Moderate aortic stenosis (Acute) Shortness of breath (Acute) Symptomatic anemia (Acute) Condition: Improved - Instructions Diet, Activity, Other Instructions: Mr. Rose, Zack were admitted to [facility] from 09/01 - 09/05 with shortness of breath and weakness. Your hemoglobin was found to be very low at 6.3 and chest xray showed congestive changes. You were transfused 2 units of blood and your hemoglobin increased to 7.9. You were seen by your submarine diver Dr. Haley who will perform a kidney biopsy on you in September next month. and ID specialist Dr. Alexandra. Here are our recommendations. #Symptomatic anemia. You were transfused 2 units of PRBC during your admission and given three doses of IV Iron during your stay. We recommend that you have blood work drawn within 1 week to monitor your CBC count (blood hemoglobin counts) Please Dr. Ni for follow up colonoscopy as scheduled for in September. Continue Protonix daily. We recommend that you continue to follow up with hematology and renal specialist Dr. Haley for Procrit medication. #COPD exacerbation. You were treated with IV steriods during your stay as well as nebulizers. continue your bronchodilaters. #Heart failure. You had some changes in your echo tests and cardiac workup. Please follow up with your supervisor pole yard within 1 week of discharge. #Psyche: Current everyday smoker. Tabasco cessation discussed. refusing nicotine patch. Continue to smoke will continue to put you at risk for strokes, early , lung cancer and poor vascular circulation. It may also continue to worsen your COPD and you will likely be readmitted to the hospital for another COPD exacerbation. #Acute kidney injury. followed by submarine diver Dr. Haley. pt for a renal biopsy as outpatient #Pulmonary nodule. A 9mm lung nodule seen on chest CT of 05/31/[address] Patient is following up at [facility] outpatient and had a recent pet scan with facility. He is not aware of the results. He will continue to follow up outpatient. #Diabetes Not on any home medications but his BGMs were elevated here in the setting of steriod therapy. Hmga1c 7.0 on 09/03/2018 Will monitor with BGMs at facility before meals. Started on Januvia daily. Continue your home medications with the following changes: - INCREASE Procrit 20K U SQ from every other week to every week. please - You had two echocardiograms, one done in 05/30/2018 and one done on 2017. Please follow up with your supervisor pole yard within 1 week of discharge. You were seen by Dr. Thompson while you were here. - Monitor your blood sugars before meals. we started you on Januvia. We have called in a new glucometer for your home use. Referrals: Sridevi Haley MD [Staff Physician] - 1 Month Disposition: [facility] - Home Medications Comprehensive Discharge Medication List: Ambulatory Orders Atorvastatin Ca [Lipitor] 40 mg PO HS 07/13/18 Cyanocobalamin [Vitamin B12 -] 1,000 mcg PO DAILY 07/13/18 Epoetin Blue [Procrit -] 20,000 unit IJ WEEKLY 07/13/18 Gabapentin [Neurontin -] 100 mg PO Q8H PRN 07/13/18 Levothyroxine [Synthroid -] 25 mcg PO DAILY 07/13/18 Metoprolol Succinate 100 mg PO DAILY 07/13/18 Pantoprazole Sodium 40 mg PO DAILY 07/13/18 Polyethylene Glycol 3350 [Laxaclear] 17 gm PO DAILY 07/13/18 Sennosides [Senna -] 1 tab PO HS 07/13/18 Silver Sulfadiazine 1% Top Cr [Silvadene -] 1 applic TP DAILY 07/13/18 Tamsulosin HCl [Flomax -] 0.4 mg PO DAILY 07/13/18 Tiotropium Br/Olodaterol HCl [Stiolto Respimat Inhal [place]] 2 puff IH BID Budesonide/Formeterol Fumarate [SYMBICORT 160/4.5mcg -] 1 inh PO BID 09/01/18 Multivitamins [Tab-A-Vit -] 1 tab PO DAILY 09/01/18 Tramadol HCl 50 mg PO BID PRN 09/01/18 Alcohol Antiseptic Pads [Alcohol Prep Pads] 1 each TP ACHS #1 box 09/04/18 Lancets [Lancets Thin] 1 each MC AC #1 box 09/04/18 Miscellaneous Medical Supply [Glucometer Device] 1 each SQ ASDIR #1 kit Miscellaneous Medical Supply [Glucometer Test Strips #100] 1 each SQ ASDIR #1 box 09/04/18 This patient is new to me today: No Emergency Visit: Yes ED Registration Date: 09/04/18 Care time: The patient presented to the Emergency Department on the above date and was hospitalized for further evaluation of their emergent condition. Critical Care patient: No - Discharge Referral Referred to [facility] Med P.C.: No
[2018-09-05] MEDS: BUDESONIDE/FORMETEROL FUMARATE 160/4.5 mcg INHALER IH SCH (11:54)
--- NOTE | 2018-09-05 12:17 | PN ---
Progress Note, Physician History of Present Illness: stable doing well breathing better no issues - Current Medication List Current Medications: Active Medications Albuterol/Ipratropium (Duoneb -) 1 amp NEB Q6H PRN PRN Reason: SHORTNESS OF BREATH Last Admin: 09/05/18 07:30 Dose: 1 amp Budesonide/Formoterol Fumarate (Symbicort 160/4.5mcg -) 1 puff IH BID [facility] Last Admin: 09/05/18 11:54 Dose: 1 puff Cyanocobalamin (Vitamin B12 -) 1,000 mcg PO DAILY [facility] Last Admin: 09/05/18 11:06 Dose: 1,000 mcg Gabapentin (Neurontin -) 100 mg PO TID [facility] Last Admin: 09/05/18 06:12 Dose: 100 mg Insulin Aspart (Novolog Vial Sliding Scale -) 1 vial SQ [facility]; Protocol Last Admin: 09/05/18 11:55 Dose: 4 units Levothyroxine Sodium (Synthroid -) 25 mcg PO DAILY@0700 [facility] Last Admin: 09/05/18 06:12 Dose: 25 mcg Metoprolol Succinate (Toprol Xl -) 100 mg PO DAILY [facility] Last Admin: 09/05/18 11:06 Dose: 100 mg Multivitamins/Minerals/Vitamin C (Tab-A-Vit -) 1 tab PO DAILY [facility] Last Admin: 09/05/18 11:06 Dose: 1 tab Non-Formulary Medication (Tiotropium Br/Olodaterol Hcl [Stiolto Respimat Inhal [place]]) 2 puff IH BID [facility] Pantoprazole Sodium (Protonix -) 40 mg PO DAILY [facility] Last Admin: 09/05/18 11:07 Dose: 40 mg Polyethylene Glycol (Miralax (For Bowel Prep) -) 17 gm PO DAILY [facility] Last Admin: 09/05/18 11:07 Dose: Not Given Senna (Senna -) 1 tab PO HS [facility] Last Admin: 09/04/18 21:40 Dose: 1 tab Sitagliptin Phosphate (Januvia -) 25 mg PO DAILY@0700 [facility] Tamsulosin HCl (Flomax -) 0.4 mg PO DAILY@0830 [facility] Last Admin: 09/05/18 08:17 Dose: 0.4 mg Tramadol HCl (Ultram -) 50 mg PO Q12H PRN PRN Reason: PAIN LEVEL 4 - 6 Last Admin: 09/04/18 21:40 Dose: 50 mg - Objective Vital Signs: Vital Signs Temperature 99.3 F 09/05/18 05:30 Pulse Rate 71 09/05/18 05:30 Respiratory Rate 20 09/05/18 05:30 Blood Pressure 102/60 09/05/18 05:30 O2 Sat by Pulse Oximetry (%) 93 L 09/04/18 21:00 Constitutional: Yes: No Distress, Calm Neck: Yes: Supple Cardiovascular: Yes: S1, S2 Respiratory: Yes: Regular, On Nasal O2, Poor Air Entry (bases) Gastrointestinal: Yes: Normal Bowel Sounds, Soft Musculoskeletal: Yes: WNL Extremities: Yes: Other (amputation old) Neurological: Yes: Alert, Oriented Psychiatric: Yes: Alert, Oriented Labs: CBC, BMP 09/05/18 10:30 09/04/18 09:00 Assessment/Plan ASSESSMENT/PLAN: Patient is a 67 year old male with a past medical history significant for laryngeal cancer s/p radiation/and RT, COPD, chronic anemia, CKD, DM, HTN, HLD, DM and hypothyroidism. He presented to the ED with 2 days of increasing SOB. CXR with congestive changes, BNP of 34,000 and Hgb 6.3. Symptomatic anemia. Anemia of chronic disease. COPD Current everyday smoker. Tabacco cessation discussed. refusing nicotine patch. lung nodule DM Hypothyroidism plan continue resp support monitor h and h gi on case rest as per the team
--- NOTE | 2018-09-05 13:09 | PN ---
Progress Note, Physician History of Present Illness: Dyspnea improved post pRBC transfusion with improvement in symptoms, receiving IV Venofer, denies chest pain, near or true syncope, palpitations, orthopnea, PND or LE edema. He sees Tello Manzano MD for cardiology [phone] - Current Medication List Current Medications: Active Medications Albuterol/Ipratropium (Duoneb -) 1 amp NEB Q6H PRN PRN Reason: SHORTNESS OF BREATH Last Admin: 09/05/18 07:30 Dose: 1 amp Budesonide/Formoterol Fumarate (Symbicort 160/4.5mcg -) 1 puff IH BID [facility] Last Admin: 09/05/18 11:54 Dose: 1 puff Cyanocobalamin (Vitamin B12 -) 1,000 mcg PO DAILY [facility] Last Admin: 09/05/18 11:06 Dose: 1,000 mcg Gabapentin (Neurontin -) 100 mg PO TID [facility] Last Admin: 09/05/18 06:12 Dose: 100 mg Insulin Aspart (Novolog Vial Sliding Scale -) 1 vial SQ [facility]; Protocol Last Admin: 09/05/18 11:55 Dose: 4 units Levothyroxine Sodium (Synthroid -) 25 mcg PO DAILY@0700 [facility] Last Admin: 09/05/18 06:12 Dose: 25 mcg Metoprolol Succinate (Toprol Xl -) 100 mg PO DAILY [facility] Last Admin: 09/05/18 11:06 Dose: 100 mg Multivitamins/Minerals/Vitamin C (Tab-A-Vit -) 1 tab PO DAILY [facility] Last Admin: 09/05/18 11:06 Dose: 1 tab Non-Formulary Medication (Tiotropium Br/Olodaterol Hcl [Stiolto Respimat Inhal [place]]) 2 puff IH BID [facility] Pantoprazole Sodium (Protonix -) 40 mg PO DAILY [facility] Last Admin: 09/05/18 11:07 Dose: 40 mg Polyethylene Glycol (Miralax (For Bowel Prep) -) 17 gm PO DAILY [facility] Last Admin: 09/05/18 11:07 Dose: Not Given Senna (Senna -) 1 tab PO HS [facility] Last Admin: 09/04/18 21:40 Dose: 1 tab Sitagliptin Phosphate (Januvia -) 25 mg PO DAILY@0700 [facility] Tamsulosin HCl (Flomax -) 0.4 mg PO DAILY@0830 [facility] Last Admin: 09/05/18 08:17 Dose: 0.4 mg Tramadol HCl (Ultram -) 50 mg PO Q12H PRN PRN Reason: PAIN LEVEL 4 - 6 Last Admin: 09/04/18 21:40 Dose: 50 mg - Objective Vital Signs: Vital Signs Temperature 99.3 F 09/05/18 05:30 Pulse Rate 71 09/05/18 05:30 Respiratory Rate 20 09/05/18 05:30 Blood Pressure 102/60 09/05/18 05:30 O2 Sat by Pulse Oximetry (%) 93 L 09/04/18 21:00 Constitutional: Yes: No Distress, Calm, Thin Neck: Yes: Supple Cardiovascular: Yes: Regular Rate and Rhythm, Murmur (2/6 SM) Respiratory: Yes: Regular, Diminished, On Nasal O2 Gastrointestinal: Yes: Normal Bowel Sounds, Soft Extremities: Yes: Amputation (Left BKA) Edema: No Labs: CBC, BMP 09/05/18 10:30 09/04/18 09:00 Problem List - Problems (1) Anemia Code(s): D64.9 - ANEMIA, UNSPECIFIED Qualifiers: Anemia type: other cause Other causes of anemia: other cause, not classified Qualified Code(s): D64.89 - Other specified anemias (2) COPD exacerbation Code(s): J44.1 - CHRONIC OBSTRUCTIVE PULMONARY DISEASE W (ACUTE) EXACERBATION (3) Shortness of breath Code(s): R06.02 - SHORTNESS OF BREATH (4) CKD (chronic kidney disease) Code(s): N18.9 - CHRONIC KIDNEY DISEASE, UNSPECIFIED Qualifiers: Chronic kidney disease stage: stage 3 (moderate) Qualified Code(s): N18.3 - Chronic kidney disease, stage 3 (moderate) (5) Hypothyroid Code(s): E03.9 - HYPOTHYROIDISM, UNSPECIFIED Qualifiers: Hypothyroidism type: unspecified Qualified Code(s): E03.9 - Hypothyroidism , unspecified (6) Diastolic dysfunction Code(s): I51.9 - HEART DISEASE, UNSPECIFIED (7) Moderate aortic stenosis Code(s): I35.0 - NONRHEUMATIC AORTIC (VALVE) STENOSIS Assessment/Plan Echocardiogram 05/30/2018 showed normal LV size, wall motion and systolic function. Normal RV. Borderline LA dilatation. Moderate with SADAF = 0.93cm2, PG = 33.3 mmHg, MG = 21.3 mmHg. Mild to moderate MR. No pericardial effusion. 1. BRAGG referable to profound anemia improved post transfusion, ? MDS 2. Diastolic dysfunction with moderate 3. CKD with proteinuria - nephrotic 4. HTN 5. Type 2 DM 6. hypothyroidism 7. HLD 8. Mod-severe copd 9. active smoker 10. high transaminases from hepatic congestion?- improving 11. 9 mm RUL pulm nodule, h/o laryngeal ca s/p XRT and chemo 12. Left BKA Plan 1. Continue bronchodilators, sterods, O2 as needed, empiric abx, f/u chest CT 2. JACKIE for anemia, IV Venofer 3. Resume Lipitor 40 qhs, continue Toprol XL 100 qd 4. Obtain outpatient records today
--- NOTE | 2018-09-05 14:20 | PN ---
Progress Note, Physician History of Present Illness: Pt seen and examined at bedside. He is awake and alert. He denies shortness of breath. - Current Medication List Current Medications: Active Medications Albuterol/Ipratropium (Duoneb -) 1 amp NEB Q6H PRN PRN Reason: SHORTNESS OF BREATH Last Admin: 09/05/18 07:30 Dose: 1 amp Budesonide/Formoterol Fumarate (Symbicort 160/4.5mcg -) 1 puff IH BID [facility] Last Admin: 09/05/18 11:54 Dose: 1 puff Cyanocobalamin (Vitamin B12 -) 1,000 mcg PO DAILY [facility] Last Admin: 09/05/18 11:06 Dose: 1,000 mcg Gabapentin (Neurontin -) 100 mg PO TID [facility] Last Admin: 09/05/18 14:05 Dose: Not Given Insulin Aspart (Novolog Vial Sliding Scale -) 1 vial SQ [facility]; Protocol Last Admin: 09/05/18 11:55 Dose: 4 units Levothyroxine Sodium (Synthroid -) 25 mcg PO DAILY@0700 [facility] Last Admin: 09/05/18 06:12 Dose: 25 mcg Metoprolol Succinate (Toprol Xl -) 100 mg PO DAILY [facility] Last Admin: 09/05/18 11:06 Dose: 100 mg Multivitamins/Minerals/Vitamin C (Tab-A-Vit -) 1 tab PO DAILY [facility] Last Admin: 09/05/18 11:06 Dose: 1 tab Non-Formulary Medication (Tiotropium Br/Olodaterol Hcl [Stiolto Respimat Inhal [place]]) 2 puff IH BID [facility] Pantoprazole Sodium (Protonix -) 40 mg PO DAILY [facility] Last Admin: 09/05/18 11:07 Dose: 40 mg Polyethylene Glycol (Miralax (For Bowel Prep) -) 17 gm PO DAILY [facility] Last Admin: 09/05/18 11:07 Dose: Not Given Senna (Senna -) 1 tab PO HS [facility] Last Admin: 09/04/18 21:40 Dose: 1 tab Sitagliptin Phosphate (Januvia -) 25 mg PO DAILY@0700 [facility] Tamsulosin HCl (Flomax -) 0.4 mg PO DAILY@0830 [facility] Last Admin: 09/05/18 08:17 Dose: 0.4 mg Tramadol HCl (Ultram -) 50 mg PO Q12H PRN PRN Reason: PAIN LEVEL 4 - 6 Last Admin: 09/04/18 21:40 Dose: 50 mg - Objective Vital Signs: Vital Signs Temperature 99.3 F 09/05/18 05:30 Pulse Rate 71 09/05/18 05:30 Respiratory Rate 20 09/05/18 05:30 Blood Pressure 102/60 09/05/18 05:30 O2 Sat by Pulse Oximetry (%) 93 L 09/04/18 21:00 Constitutional: Yes: Calm Eyes: Yes: Conjunctiva Clear HENT: Yes: Atraumatic Cardiovascular: Yes: S1, S2 Respiratory: Yes: CTA Bilaterally Gastrointestinal: Yes: Soft Genitourinary: Yes: WNL Musculoskeletal: Yes: Other (aka) Edema: No Neurological: Yes: Oriented Psychiatric: Yes: Oriented Labs: CBC, BMP 09/05/18 10:30 09/04/18 09:00 Problem List - Problems (1) Anemia Code(s): D64.9 - ANEMIA, UNSPECIFIED Qualifiers: Anemia type: other cause Other causes of anemia: other cause, not classified Qualified Code(s): D64.89 - Other specified anemias (2) Shortness of breath Code(s): R06.02 - SHORTNESS OF BREATH (3) CKD (chronic kidney disease) Code(s): N18.9 - CHRONIC KIDNEY DISEASE, UNSPECIFIED Qualifiers: Chronic kidney disease stage: stage 3 (moderate) Qualified Code(s): N18.3 - Chronic kidney disease, stage 3 (moderate) (4) COPD (chronic obstructive pulmonary disease) Code(s): J44.9 - CHRONIC OBSTRUCTIVE PULMONARY DISEASE, UNSPECIFIED (5) Renal insufficiency Code(s): N28.9 - DISORDER OF KIDNEY AND URETER, UNSPECIFIED Assessment/Plan Current Medications Generic Name Dose Route Start Last Admin Trade Name Freq PRN Reason Stop Dose Admin Albuterol/Ipratropium 1 amp 09/01/18 23:21 09/05/18 07:30 Duoneb - NEB 1 amp Q6H PRN Administration SHORTNESS OF BREATH Budesonide/Formoterol Fumarate 1 puff 09/01/18 22:00 09/05/18 11:54 Symbicort 160/4.5mcg - IH 1 puff BID [facility] Administration Cyanocobalamin 1,000 mcg 09/02/18 10:00 09/05/18 11:06 Vitamin B12 - PO 1,000 mcg DAILY [facility] Administration Gabapentin 100 mg 09/01/18 22:00 09/05/18 14:05 Neurontin - PO Not Given TID [facility] Insulin Aspart 1 vial 09/03/18 16:30 09/05/18 11:55 Novolog Vial Sliding Scale - SQ 4 units ACHS [facility] Administration Protocol Levothyroxine Sodium 25 mcg 09/02/18 07:00 09/05/18 06:12 Synthroid - PO 25 mcg DAILY@0700 [facility] Administration Metoprolol Succinate 100 mg 09/02/18 10:00 09/05/18 11:06 Toprol Xl - PO 100 mg DAILY [facility] Administration Multivitamins/Minerals/Vitamin C 1 tab 09/02/18 10:00 09/05/18 11:06 Tab-A-Vit - PO 1 tab DAILY [facility] Administration Non-Formulary Medication 2 puff 09/01/18 22:00 Tiotropium Br/Olodaterol Hcl [Stiolto Respimat Inhal [place]] IH BID [facility] Pantoprazole Sodium 40 mg 09/02/18 10:00 09/05/18 11:07 Protonix - PO 40 mg DAILY [facility] Administration Polyethylene Glycol 17 gm 09/02/18 10:00 09/05/18 11:07 Miralax (For Bowel Prep) - PO Not Given DAILY [facility] Senna 1 tab 09/01/18 22:00 09/04/18 21:40 Senna - PO 1 tab HS [facility] Administration Sitagliptin Phosphate 25 mg 09/06/18 07:00 Januvia - PO DAILY@0700 [facility] Tamsulosin HCl 0.4 mg 09/02/18 08:30 09/05/18 08:17 Flomax - PO 0.4 mg DAILY@0830 [facility] Administration Tramadol HCl 50 mg 09/01/18 17:43 09/04/18 21:40 Ultram - PO 50 mg Q12H PRN Administration PAIN LEVEL 4 - 6 Laboratory Tests 05/31/18 06/01/18 09/03/18 05:30 16:35 06:00 Protein/Creatinin Ratio 3.69 PITA M-Raúl Not observed OBIE Screen Negative HIV 1&2 Antibody Screen Negative HIV P24 Antigen Negative Impression 1. CKD 2. anemia 3. history of hyperkalemia 4. HTN 5. DM 6. hypothyroidism 7. HLD 8. copd 9. proteinuria - nephrotic 10. active smoker Plan - will follow as outpt - will schedule kidney biopsy after the new year per pts wishes - unable to use bebeto or arb secondary to hyperkalemia - cont procrit - will need to monitor hg - anemia may worsen renal function
[2018-09-05 14:28] LABS: ANISOCYTOSIS 1+; MACROCYTOSIS 1+; OVALOCYTE 1+; PLATELET ESTIMATE NORMAL
[2018-09-05 15:15] VITALS: BP 108/56; PULSE 73; TEMP 99.2
[2018-09-06] MEDS ORDERED: sitaGLIPtin PHOSPHATE 25 MG TABLET (FP) PO SCH (07:00)
== END 2018-09-05 19:05 | disposition home or self-care (01) | DRG 191 ==
LOC: JER 12:04 → JERBED 16:04 → J5S 18:28 → J6S 09-02 21:27 → OBSVTOIN 09-04 07:16
PROVIDERS: ADMIT Internal Medicine; ATTEND Nurse Practitioner Family
DX: J44.1 Chronic obstructive pulmonary disease with (acute) exacerbation (principal); N17.9 Acute kidney failure, unspecified; I13.0 Hypertensive heart and chronic kidney disease with heart failure and stage 1 through stage 4 chronic kidney disease, or unspecified chronic kidney disease; I50.22 Chronic systolic (congestive) heart failure; Z89.512 Acquired absence of left leg below knee; E78.5 Hyperlipidemia, unspecified; N18.9 Chronic kidney disease, unspecified; D64.9 Anemia, unspecified; I45.10 Unspecified right bundle-branch block; E03.9 Hypothyroidism, unspecified; E87.5 Hyperkalemia; K59.00 Constipation, unspecified; R74.0 Nonspecific elevation of levels of transaminase and lactic acid dehydrogenase [LDH]; F17.210 Nicotine dependence, cigarettes, uncomplicated; E11.22 Type 2 diabetes mellitus with diabetic chronic kidney disease; D50.9 Iron deficiency anemia, unspecified; D63.8 Anemia in other chronic diseases classified elsewhere; I35.0 Nonrheumatic aortic (valve) stenosis; Z85.21 Personal history of malignant neoplasm of larynx; D72.819 Decreased white blood cell count, unspecified
CPT/HCPCS: 36415; 36430; 36511; 71045-TC-FY; 71250-TC; 76700-TC; 80048; 80053; 81003; 81015; 82272; 82550; 82728; 82947; 82962; 83010; 83036; 83615; 83735; 83880; 84466; 84484; 85025; 85027; 85044; 86850; 86900; 86901; 86922; 87389; 93005; 93010; 94640; 94761; 99284-25; G0378; J0885; J1756; P9038; P9058

== ENCOUNTER 2018-09-11 08:31 | Inpatient (IN) | payer OTHER ==
--- NOTE | 2018-09-11 08:49 | PDOC ---
Attending Attestation - Resident Resident Name: Jay JayStephenie - ED Attending Attestation I have performed the following: I have examined & evaluated the patient, The case was reviewed & discussed with the resident, I agree w/resident's findings & plan, Exceptions are as noted - HPI HPI: 09/11/18 09:05 67yo male with sob. hx of COPD. Pt with severely diminished BS b/. Pt states he felt a fever today. Pt states R leg is newly swollen and RUE is newly swollen. Pt with resp distress, conversational dyspnea, no cp, tachypnic. Pt denies cp. Pt denies sore throat. No abd pain. No dysuria. Pt biba. - Physicial Exam PE: 09/11/18 09:12 Gen: aaox3, tachypnic heent: dry mm, post pharynx clear heart: +s1s2 reg lungs: diminished bs b/l abd: soft, nt/nd +bs ext: L AKA, R 3+ pitting edema with mild calf ttp, RUE with swelling, ttp over RUE prior iv site - Medical Decision Making 09/11/18 08:49 I, Dr. Emi Rene, DO, attest that this document has been prepared under my direction and personally reviewed by me in its entirety. I further attest, that it accurately reflects all work, treatment, procedures and medical decision -making performed by me. 09/11/18 09:15 a/p: 67yo male with sob -concern for a copd exacerbation- nebs, mag, steroids, youth nutritional monitor -hx of diastolic heart failure - will send trops BNP -also concern for DVT to RLE - duplex ultrasound and thromboplebitis vs dvt to RUE from IV site - ultrasound RLE and RUE -will send flu given febrile concern -will send lactate, blood cultures, recent admission -will most likely need admission for COPD excerbation and further evaluation of SOB 09/11/18 12:20 poss pna on cxr chronic anemia ckd broad spectrum abx ordered RUE with redness, warmth ttp- concern for cellulitis duplex u/s RLE and RUE is negative 09/11/18 12:55 pt with elevated bnp as well concern for chf, copd exacerbation resident discussed the case with [facility] who accepts the patient to service *DC/Admit/Observation/Transfer Diagnosis at time of Disposition: COPD exacerbation, Shortness of breath CKD (chronic kidney disease) Qualifiers: Chronic kidney disease stage: unspecified stage Qualified Code(s): N18.9 - Chronic kidney disease, unspecified Heart failure Qualifiers: Heart failure type: other Qualified Code(s): I50.89 - Other heart failure - Discharge Dispostion Condition at time of disposition: Guarded Decision to Admit order: Yes - Referrals Referrals: Curly Vargas MD [Primary Care Provider] - - Patient Instructions - Post Discharge Activity Heart Score/ECG Review - ECG Intrepretation Comment:: 09/11/18 09:18 sinus at 76, 1st degree av block, L axis deviation, RBBB, st depression lateral leads, abnl ekg
[2018-09-11] MEDS ORDERED: ALBUTEROL SO4 2.5/IPRATROPIUM 0.5 INH SOL 3 ML VIAL.NEB. NEB ONE ×4 (08:50→20:12)
[2018-09-11] MEDS ORDERED: methylPREDNISolone NA SUCC 125 MG/2 ML VIAL IVPUSH ONE (08:51)
[2018-09-11] MEDS ORDERED: MAGNESIUM SULF 50% (8.12 MEQ/2 ML-1 GM VIAL) IVPB ONE (08:52)
[2018-09-11] MEDS ORDERED: methylPREDNISolone NA SUCC 125 MG/2 ML VIAL ONE (08:52)
--- NOTE | 2018-09-11 08:58 | PDOC ---
History of Present Illness - General Chief Complaint: Shortness of Breath Stated Complaint: SHORTNESS OF BREATH Time Seen by Provider: 09/11/18 08:47 History Source: Patient Exam Limitations: No Limitations - History of Present Illness Initial Comments: 09/11/18 08:55 67 YOM with h/o COPD (uses home MDI and neb tx, never admitted to ICU or intubated), CHF, anemia requiring transfusion, CKD, prior laryngeal CA, prior h/ o DM, left BKA, and aortic stenosis who p/w SOB for the past 2 days significantly worse this morning. He notes this feels exactly the same as his prior COPD exacerbation and has wheezing and SOB. Feels like he cannot move air. States his breathing treatments have not been working at home. Denies any known f/c/n/v/d/c, chest pain, sweats, abdominal pain/distention, swelling, change in weight, etc. He is not prone to getting PNA per his reports. Past History - Past Medical History Allergies/Adverse Reactions: Allergies Allergy/AdvReac Type Severity Reaction Status Date / Time No Known Allergies Allergy Verified 09/11/18 08:46 Home Medications: Ambulatory Orders Cyanocobalamin [Vitamin B12 -] 1,000 mcg PO DAILY 07/13/18 Epoetin Blue [Procrit -] 20,000 unit IJ WEEKLY 07/13/18 Gabapentin [Neurontin -] 100 mg PO Q8H PRN 07/13/18 Levothyroxine [Synthroid -] 25 mcg PO DAILY 07/13/18 Metoprolol Succinate 100 mg PO DAILY 07/13/18 Pantoprazole Sodium 40 mg PO DAILY 07/13/18 Polyethylene Glycol 3350 [Laxaclear] 17 gm PO DAILY 07/13/18 Sennosides [Senna -] 1 tab PO HS 07/13/18 Silver Sulfadiazine 1% Top Cr [Silvadene -] 1 applic TP DAILY 07/13/18 Tamsulosin HCl [Flomax -] 0.4 mg PO DAILY 07/13/18 Tiotropium Br/Olodaterol HCl [Stiolto Respimat Inhal [place]] 2 puff IH BID Budesonide/Formeterol Fumarate [SYMBICORT 160/4.5mcg -] 1 inh PO BID 09/01/18 Multivitamins [Multivit ([facility] Formulary)] 1 tab PO DAILY 09/01/18 Tramadol HCl 50 mg PO BID PRN 09/01/18 Alcohol Antiseptic Pads [Alcohol Prep Pads] 1 each TP ACHS #1 box 09/04/18 Lancets [Lancets Thin] 1 each MC AC #1 box 09/04/18 Miscellaneous Medical Supply [Glucometer Device] 1 each SQ ASDIR #1 kit Miscellaneous Medical Supply [Glucometer Test Strips #100] 1 each SQ ASDIR #1 box 09/04/18 Albuterol 0.083% Nebulizer Najma [Ventolin 0.083% Nebulizer Soln -] 1 amp NEB QID #1 amp 09/05/18 Albuterol Sulfate Inhaler - [Ventolin Hfa Inhaler -] 1 puff IH Q6H #1 inhaler Sitagliptin Phosphate [Januvia -] 25 mg PO DAILY@0700 #90 tab 09/05/18 Atorvastatin Ca [Lipitor] 40 mg PO HS 09/11/18 Anemia: Yes Asthma: No Cancer: Yes COPD: Yes Diabetes: Yes (TYPE II) HTN: Yes Hypercholesterolemia: Yes Psychiatric Problems: Yes (DEPRESSIVE DISORDER) Thyroid Disease: Yes (HYPO) - Surgical History Orthopedic Surgery: Yes (lt BKA) - Immunization History Immunization Up to Date: Yes - Suicide/Smoking/Psychosocial Hx Smoking History: Current every day smoker Have you smoked in the past 12 months: Yes Number of Cigarettes Smoked Daily: 3 Information on smoking cessation initiated: No 'Breaking Loose' booklet given: 05/30/18 Hx Alcohol Use: No Drug/Substance Use Hx: No Substance Use Type: None Hx Substance Use Treatment: No Review of Systems - Review of Systems Able to Perform ROS?: Yes Comments:: 09/11/18 09:01 GEN: no fever, chills, generalized weakness, malaise, unintentional weight change, loss of appetite, or difficulty sleeping HEENT: no ear pain, congestion, sore throat, rhinorrhea, nosebleed, vision change, or eye pain CV: no chest pain, palpitations, syncope, edema, or exercise intolerance RESP: cough, wheezing, SOB GI: no nausea, vomiting, diarrhea, constipation, black/bloody stool, abdominal pain, or appetite change : no dysuria, hematuria, frequency, incontinence, retention, pruritis, bleeding, or discharge MSK: no weakness, joint swelling, limping, joint pain, or muscle pain NEURO: no headaches, seizures, numbness, tingling, focal weakness, or head trauma PSYCH: no insomnia, behavior change, suicidality, homicidality, or substance use SKIN: no jaundice, rashes, cuts, bruises, scars, or lesions *Physical Exam - Vital Signs Last Vital Signs Temp Pulse Resp BP Pulse Ox 98.0 F 78 26 H 118/72 99 09/11/18 08:46 09/11/18 08:46 09/11/18 08:46 09/11/18 08:46 09/11/18 08:46 09/11/18 09:01 GENERAL: mild distress, mild respiratory distress, otherwise nourished, A/Ox4, no acute distress, speaking in full sentences, answers questions appropriately, appears pale HEENT: PERRLA, EOMI, moist mucous membranes, no posterior pharyngeal erythema, no tonsillar swelling or exudates, no cervical lymphadenopathy CARDIOVASCULAR: regular rate and rhythm, normal S1S2, 2/6 systolic murmur, radial and DP pulses 2+ and symmetric, capillary refill <2 seconds, extremities warm and well-perfused LUNGS/RESPIRATORY: mild respiratory distress, barrel chested, abdominal accessory muscle use, symmetric chest movements during respirations, lungs with poor air movement bilaterally, bilateral basilar expiratory wheezes, no cyanosis GI/ABDOMEN: protuberant but stated chronic unchanged, symmetric appearance, normoactive bowel sounds, soft, no tenderness to palpation, no midline pulsatile masses, no palpated organomegaly : no CVA tenderness, normal external appearance, no lesions BACK: no midline ttp or stepoff or deformity of thoracic or lumbar spine EXTREMITIES: distal pulses 2+, warm and well-perfused, no LE edema SKIN: warm and dry, pale, no jaundice, no bruising, no rash, no skin breakdown, no cuts, no lesions NEUROLOGICAL: GCS 15, CN II-XII grossly intact, moving all extremities, no facial droop, no decreased sensation Moderate Sedation - Procedure Monitoring Vital Signs: Procedure Monitoring Vital Signs Temperature 98.0 F 09/11/18 08:46 Pulse Rate 78 09/11/18 08:46 Respiratory Rate 26 H 09/11/18 08:46 Blood Pressure 118/72 09/11/18 08:46 O2 Sat by Pulse Oximetry (%) 99 09/11/18 08:46 Heart Score/ECG Review #1 09/11/18 13:06 Sinus rhythm, leftward axis, VFc=116 ms, RBBB, no ischemic ST-T changes. ED Treatment Course - LABORATORY CBC & Chemistry Diagram: 09/23/18 07:00 09/23/18 07:00 - RADIOLOGY Radiology Studies Ordered: Category Date Time Status CHEST X-RAY PORTABLE* [RAD] Stat Radiology 09/11/18 08:53 Ordered Medical Decision Making - Medical Decision Making 09/11/18 09:01 Pt with h/o COPD p/w SOB and respiratory distress like their prior COPD exacerbation. Initial Vital Signs Temp Pulse Resp BP Pulse Ox 98.0 F 78 26 H 118/72 99 09/11/18 08:46 09/11/18 08:46 09/11/18 08:46 09/11/18 08:46 09/11/18 08:46 Exam: As noted in Physical Exam section. DDX IBNLT: COPD, CHF, PNA, bronchitis, viral URI, influenza, PTX, ACS, PE, pericarditis, pneumonitis, allergic rxn W/U ordered: CBCD CMP Mg Phos Cardiac panel Blood gas EKG CXR TX ordered: DuoNebs SoluMedrol (if likely admission) EKG: Reviewed; results as noted in ECG Review section. CXR: Persistent b/l pleural effusion. Laboratory Tests 09/11/18 09/11/18 09/11/18 09:00 09:00 09:00 WBC 7.6 RBC 2.07 L Hgb 7.4 L Hct 21.6 L MCV 104.3 H MCH 35.9 H MCHC 34.4 RDW 25.0 H Plt Count 156 MPV 10.8 D Absolute Neuts (auto) 5.2 Neutrophils % 67.9 Lymphocytes % 6.0 L D Monocytes % 25.3 H Eosinophils % 0.4 D Basophils % 0.4 Nucleated RBC % 0 VBG pH 7.26 L POC VBG pCO2 56.5 H D POC VBG pO2 21.6 L Mixed VBG HCO3 24.7 Sodium 140 Potassium 4.8 Chloride 108 H Carbon Dioxide 25 Anion Gap 7 L BUN 60 H Creatinine 2.3 H Creat Clearance w eGFR 28.50 Random Glucose 169 H Lactic Acid Calcium 7.7 L Phosphorus Magnesium Total Bilirubin 0.7 AST 23 ALT 61 Alkaline Phosphatase 134 H Creatine Kinase 34 Troponin I 0.02 B-Natriuretic Peptide 37280.3 H Total Protein 6.0 L Albumin 3.0 L Influenza A (Rapid) Influenza B (Rapid) 09/11/18 09/11/18 09/11/18 09:00 09:04 09:45 WBC RBC Hgb Hct MCV MCH MCHC RDW Plt Count MPV Absolute Neuts (auto) Neutrophils % Lymphocytes % Monocytes % Eosinophils % Basophils % Nucleated RBC % VBG pH POC VBG pCO2 POC VBG pO2 Mixed VBG HCO3 Sodium Potassium Chloride Carbon Dioxide Anion Gap BUN Creatinine Creat Clearance w eGFR Random Glucose Lactic Acid 0.9 Calcium Phosphorus 3.8 Magnesium 2.0 Total Bilirubin AST ALT Alkaline Phosphatase Creatine Kinase Troponin I B-Natriuretic Peptide Total Protein Albumin Influenza A (Rapid) Negative Influenza B (Rapid) Negative US/DUPLEX VASCUL US-1 ARM History: Suspicion for upper extremity DVT. Duplex examination of the right upper extremity was performed. The internal jugular, subclavian and axillary veins were examined as well as the visualized portions of the brachial veins. There is normal spontaneous venous flow with normal respiratory variation. The brachial veins are normally compressible along their visualized length. Impression: No evidence of right upper extremity DVT. US/DUPLEX VASCUL US-1 LEG History: rule out DVT to the right lower extremity The common and superficial femoral and popliteal veins are patent and demonstrate good compressibility. The calf veins are patent. There is no Wheeler' s cyst. Impression: No evidence of acute DVT. ADMIT The Pts symptoms persist despite ED treatments. They are not safe for discharge from the ED at this time. They require further hospital observation, workup, and treatment. IV abx started already. [facility] sent to [facility] for admission. Blank Decision to Admit order is placed per ED protocol. 09/11/18 12:[address] Watson; patient's admission is going to Dr. Blandon 09/23/18 16:19 *DC/Admit/Observation/Transfer Diagnosis at time of Disposition: COPD exacerbation, Shortness of breath, Prolonged QT interval CKD (chronic kidney disease) Qualifiers: Chronic kidney disease stage: stage 3 (moderate) Qualified Code(s): N18.3 - Chronic kidney disease, stage 3 (moderate) Heart failure Qualifiers: Heart failure type: combined systolic and diastolic Heart failure chronicity: acute on chronic Qualified Code(s): I50.43 - Acute on chronic combined systolic (congestive) and diastolic (congestive) heart failure - Discharge Dispostion Condition at time of disposition: Guarded Decision to Admit order: Yes - Referrals - Patient Instructions - Post Discharge Activity
[2018-09-11] MEDS ORDERED: MAGNESIUM 1GM/D5W - 2 GM/200 ML IVPB IVPB ONE (09:17)
[2018-09-11 09:23] LABS: BASO % 0.4 % (0-2.0); EOS % 0.4 % (0-4.5); HEMATOCRIT 21.6 % (35.4-49); HEMOGLOBIN 7.4 GM/dL (11.7-16.9); MCH 35.9 pg (25.7-33.7); MCHC 34.4 g/dl (32.0-35.9); MEAN CELL VOLUME 104.3 fl (80-96); MEAN PLT VOLUME 10.8 fl (7.5-11.1); MONO % 25.3 % (3.8-10.2); NEUT % 67.9 % (42.8-82.8); PLATELET COUNT 156 K/MM3 (134-434); RBC 2.07 M/mm3 (4.00-5.60); WHITE BLOOD COUNT 7.6 K/mm3 (4.0-10.0)
[2018-09-11 09:30] LABS: VENOUS PC02 56.5 mmHg (38-52); VENOUS PH 7.26 (7.32-7.42); VENOUS PO2 21.6 mmHg (28-48)
[2018-09-11 10:15] LABS: ALK PHOS 134 U/L (45-117); ANION GAP 7 MMOL/L (8-16); BILIRUBIN,TOTAL 0.7 mg/dL (0.2-1); BLOOD UREA NITROGEN 60 mg/dL (7-18); CALCIUM 7.7 mg/dL (8.5-10.1); CHLORIDE 108 mmol/L (98-107); CO2 25 mmol/L (21-32); CREATININE 2.3 mg/dL (0.55-1.3); GLUCOSE,RANDOM 169 mg/dL (74-106); N-TERMINAL BNP 40548.3 pg/ml (5-125); POTASSIUM 4.8 mmol/L (3.5-5.1); SGOT/AST 23 U/L (15-37); SGPT/ALT 61 U/L (13-61); SODIUM 140 mmol/L (136-145)
[2018-09-11 10:38] LABS: PHOSPHOROUS 3.8 mg/dL (2.5-4.9)
[2018-09-11] MEDS ORDERED: PIPERACILLIN/TAZOB 2.25 GM 2.25 GM in DEXTROSE 5%-WATER - 50 ML IVPB ONE (10:44)
[2018-09-11] MEDS ORDERED: VANCOMYCIN 1 GM in D5W (PRE-DOCKED) 1,000 MG/250 ML IVPB ONE (10:44)
[2018-09-11] MEDS ORDERED: PIPERACILLIN/TAZOB 2.25 GM 2.25 GM/50 ML BAG IVPB ONE (12:13)
[2018-09-11] MEDS ORDERED: VANCOMYCIN 1 GRAM (PRE-DOCKED) 1,000 MG/250 ML BAG IVPB ONE (12:14)
[2018-09-11 12:43] LABS: ACANTHOCYTES 1+; ANISOCYTOSIS 2+; MACROCYTOSIS 1+; OVALOCYTE 2+; PLATELET ESTIMATE DECREASED; TEAR DROP CELLS 1+
[2018-09-11] MEDS ORDERED: FUROSEMIDE 40 MG/4 ML INJECTABLE VIAL IVPUSH ONE (12:49)
--- NOTE | 2018-09-11 13:03 | PN ---
Teaching Attending Note Name of Resident: Jeanne Whitt ATTENDING PHYSICIAN STATEMENT I saw and evaluated the patient. I reviewed the resident's note and discussed the case with the resident. I agree with the resident's findings and plan as documented. SUBJECTIVE: OBJECTIVE: Vital Signs Temperature 98.0 F 09/11/18 08:46 Pulse Rate 78 09/11/18 08:46 Respiratory Rate 26 H 09/11/18 08:46 Blood Pressure 118/72 09/11/18 08:46 O2 Sat by Pulse Oximetry (%) 99 09/11/18 08:46 CBCD WBC 7.6 K/mm3 (4.0-10.0) 09/11/18 09:00 RBC 2.07 M/mm3 (4.00-5.60) L 09/11/18 09:00 Hgb 7.4 GM/dL (11.7-16.9) L 09/11/18 09:00 Hct 21.6 % (35.4-49) L 09/11/18 09:00 MCV 104.3 fl (80-96) H 09/11/18 09:00 MCHC 34.4 g/dl (32.0-35.9) 09/11/18 09:00 RDW 25.0 % (11.9-15.9) H 09/11/18 09:00 Plt Count 156 K/MM3 (134-434) 09/11/18 09:00 MPV 10.8 fl (7.5-11.1) D 09/11/18 09:00 CMP Sodium 140 mmol/L (136-145) 09/11/18 09:00 Potassium 4.8 mmol/L (3.5-5.1) 09/11/18 09:00 Chloride 108 mmol/L (98-107) H 09/11/18 09:00 Carbon Dioxide 25 mmol/L (21-32) 09/11/18 09:00 Anion Gap 7 MMOL/L (8-16) L 09/11/18 09:00 BUN 60 mg/dL (7-18) H 09/11/18 09:00 Creatinine 2.3 mg/dL (0.55-1.3) H 09/11/18 09:00 Creat Clearance w eGFR 28.50 (>60) 09/11/18 09:00 Random Glucose 169 mg/dL (74-106) H 09/11/18 09:00 Calcium 7.7 mg/dL (8.5-10.1) L 09/11/18 09:00 Total Bilirubin 0.7 mg/dL (0.2-1) 09/11/18 09:00 AST 23 U/L (15-37) 09/11/18 09:00 ALT 61 U/L (13-61) 09/11/18 09:00 Alkaline Phosphatase 134 U/L (45-117) H 09/11/18 09:00 Total Protein 6.0 g/dl (6.4-8.2) L 09/11/18 09:00 Albumin 3.0 g/dl (3.4-5.0) L 09/11/18 09:00 CARDIAC ENZYMES Creatine Kinase 34 IU/L (26-308) 09/11/18 09:00 Troponin I 0.02 ng/ml (0.00-0.05) 09/11/18 09:00 Home Medications Medication Instructions Recorded Cyanocobalamin [Vitamin B12 -] 1,000 mcg PO DAILY 07/13/18 Epoetin Blue [Procrit -] 20,000 unit IJ WEEKLY 07/13/18 Gabapentin [Neurontin -] 100 mg PO Q8H PRN 07/13/18 Levothyroxine [Synthroid -] 25 mcg PO DAILY 07/13/18 Metoprolol Succinate 100 mg PO DAILY 07/13/18 Pantoprazole Sodium 40 mg PO DAILY 07/13/18 Polyethylene Glycol 3350 17 gm PO DAILY 07/13/18 [Laxaclear] Sennosides [Senna -] 1 tab PO HS 07/13/18 Silver Sulfadiazine 1% Top Cr 1 applic TP DAILY 07/13/18 [Silvadene -] Tamsulosin HCl [Flomax -] 0.4 mg PO DAILY 07/13/18 Tiotropium Br/Olodaterol HCl 2 puff IH BID 07/13/18 [Stiolto Respimat Inhal [place]] Budesonide/Formeterol Fumarate 1 inh PO BID 09/01/18 [SYMBICORT 160/4.5mcg -] Multivitamins [Multivit ([facility] 1 tab PO DAILY 09/01/18 Formulary)] Tramadol HCl 50 mg PO BID PRN 09/01/18 Alcohol Antiseptic Pads [Alcohol 1 each TP ACHS #1 box 09/04/18 Prep Pads] Lancets [Lancets Thin] 1 each MC AC #1 box 09/04/18 Miscellaneous Medical Supply 1 each SQ ASDIR #1 kit 09/04/18 [Glucometer Device] Miscellaneous Medical Supply 1 each SQ ASDIR #1 box 09/04/18 [Glucometer Test Strips #100] Albuterol 0.083% Nebulizer Najma 1 amp NEB QID #1 amp 09/05/18 [Ventolin 0.083% Nebulizer Soln -] Albuterol Sulfate Inhaler - 1 puff IH Q6H #1 inhaler 09/05/18 [Ventolin Hfa Inhaler -] Sitagliptin Phosphate [Januvia -] 25 mg PO DAILY@0700 #90 tab 09/05/18 ASSESSMENT AND PLAN:
[2018-09-11] MEDS ORDERED: FUROSEMIDE 40 MG/4 ML INJECTABLE VIAL ONE (13:19)
--- NOTE | 2018-09-11 13:19 | HP ---
CHIEF COMPLAINT: SOB x3 days PCP: Dr Vargas HISTORY OF PRESENT ILLNESS: Patient is a 67 year old male with a PMHx significant for recent lung nodule, laryngeal cancer s/p radiation/and RT, COPD, , chronic anemia, CKD, DM, HTN, HLD, s/p LBKA and hypothyroidism, presenting with 3 days of increasing SOB from [facility]. Pt noticed associated leg swelling 3 days ago that he thinks has improved over time. There is associated SOB including at rest. Pt started home O2 at 2L last week and has been on home symbicort and compliant on his medications. Pt was recently discharged on 09/05/18 for SOB and managed for HFrEF, had blood transfusion for anemia and received iron infusions. Pt denies bleeding per rectum, hematuria, hematochezia or hemoptysis. Previous stool occult negative. Denies alcoholism, admits current everyday smoking hx, last cigarette 09/10 ( 2cigs)A differential diagnosis of MDS was entertained (for severe anemia and leucopenia at last visit). Echocardiogram 05/30/2018 showed normal LV size, wall motion and systolic function. Normal RV. Borderline LA dilatation. Mild to moderate MR. No pericardial effusion. But Echocardiogram 07/14/18 shows LV moderately dilated. LV systolic fx is mildly reduced. mild global hypokinesis of the LV. RV is normal in size and fx. moderate mitral regurg. mild to mod valvular aortic stenosis. EF-45-50%. While receiving Vancomycin, pt appeared to become more SOB, so vancomycin was dc. Pt was assessed and received duonebs and lasix with improvement in SOB ER course was notable for: (1) BNP-40,000, chest infiltrates (CXR), Chronic b/l pleural effusion (CT chest) (2) (3) iv solumedrol 125, duonebs, lasix 20mg (pending), zosyn Recent Travel: PAST MEDICAL HISTORY: As above in HPI PAST SURGICAL HISTORY: LBKA (5years ago) for gangrenous toe Social History: Lives in assisted living facility, says he ambulates with prosthesis and a cane Smokinppdx 47 years Alcohol:denies Drugs: Denies Family History: Allergies No Known Allergies Allergy (Verified 09/11/18 08:46) HOME MEDICATIONS: Home Medications Medication Instructions Recorded Cyanocobalamin [Vitamin B12 -] 1,000 mcg PO DAILY 07/13/18 Epoetin Blue [Procrit -] 20,000 unit IJ WEEKLY 07/13/18 Gabapentin [Neurontin -] 100 mg PO Q8H PRN 07/13/18 Levothyroxine [Synthroid -] 25 mcg PO DAILY 07/13/18 Metoprolol Succinate 100 mg PO DAILY 07/13/18 Pantoprazole Sodium 40 mg PO DAILY 07/13/18 Polyethylene Glycol 3350 17 gm PO DAILY 07/13/18 [Laxaclear] Sennosides [Senna -] 1 tab PO HS 07/13/18 Silver Sulfadiazine 1% Top Cr 1 applic TP DAILY 07/13/18 [Silvadene -] Tamsulosin HCl [Flomax -] 0.4 mg PO DAILY 07/13/18 Tiotropium Br/Olodaterol HCl 2 puff IH BID 07/13/18 [Stiolto Respimat Inhal [place]] Budesonide/Formeterol Fumarate 1 inh PO BID 09/01/18 [SYMBICORT 160/4.5mcg -] Multivitamins [Multivit ([facility] 1 tab PO DAILY 09/01/18 Formulary)] Tramadol HCl 50 mg PO BID PRN 09/01/18 Alcohol Antiseptic Pads [Alcohol 1 each TP ACHS #1 box 09/04/18 Prep Pads] Lancets [Lancets Thin] 1 each MC AC #1 box 09/04/18 Miscellaneous Medical Supply 1 each SQ ASDIR #1 kit 09/04/18 [Glucometer Device] Miscellaneous Medical Supply 1 each SQ ASDIR #1 box 09/04/18 [Glucometer Test Strips #100] Albuterol 0.083% Nebulizer Najma 1 amp NEB QID #1 amp 09/05/18 [Ventolin 0.083% Nebulizer Soln -] Albuterol Sulfate Inhaler - 1 puff IH Q6H #1 inhaler 09/05/18 [Ventolin Hfa Inhaler -] Sitagliptin Phosphate [Januvia -] 25 mg PO DAILY@0700 #90 tab 09/05/18 REVIEW OF SYSTEMS CONSTITUTIONAL: Absent: fever, chills, diaphoresis, generalized weakness, malaise, loss of appetite, weight change HEENT: Absent: rhinorrhea, nasal congestion, throat pain, throat swelling, difficulty swallowing, mouth swelling, ear pain, eye pain, visual changes CARDIOVASCULAR: Absent: chest pain, syncope, palpitations, irregular heart rate, lightheadedness , peripheral edema RESPIRATORY: Absent: cough, shortness of breath, dyspnea with exertion, orthopnea, wheezing, stridor, hemoptysis GASTROINTESTINAL: Absent: abdominal pain, abdominal distension, nausea, vomiting, diarrhea, constipation, melena, hematochezia GENITOURINARY: Absent: dysuria, frequency, urgency, hesitancy, hematuria, flank pain, genital pain MUSCULOSKELETAL: Absent: myalgia, arthralgia, joint swelling, back pain, neck pain SKIN: Absent: rash, itching, pallor HEMATOLOGIC/IMMUNOLOGIC: Absent: easy bleeding, easy bruising, lymphadenopathy, frequent infections ENDOCRINE: Absent: unexplained weight gain, unexplained weight loss, heat intolerance, cold intolerance NEUROLOGIC: Absent: headache, focal weakness or paresthesias, dizziness, unsteady gait, seizure, mental status changes, bladder or bowel incontinence PSYCHIATRIC: Absent: anxiety, depression, suicidal or homicidal ideation, hallucinations. PHYSICAL EXAMINATION Vital Signs - 24 hr 09/11/18 08:46 Temperature 98.0 F Pulse Rate 78 Respiratory 26 H Rate Blood Pressure 118/72 O2 Sat by Pulse 99 Oximetry (%) GENERAL: Awake, alert, and fully oriented, in mild respiratory distress. HEAD: Normal with no signs of trauma. EYES: Pupils equal, round and reactive to light, extraocular movements intact, sclera anicteric, conjunctiva clear. EARS, NOSE, THROAT: Ears normal, nares patent, oropharynx clear without exudates. Dry mucous membranes. NECK: Normal range of motion, supple. LUNGS: Breath sounds reduced bilateral lung bases with b/l crepitations b/l lung bases. Poor air entry, b/l HEART: Regular rate and rhythm, normal S1 and S2 ABDOMEN: Soft, nontender, not distended, normoactive bowel sounds, no guarding, no rebound, no masses. MUSCULOSKELETAL: Normal range of motion at all joints. LBKA with healed stump UPPER EXTREMITIES: 2+ pulses, warm, well-perfused. No cyanosis. No clubbing. No peripheral edema. LOWER EXTREMITIES: 2+ pulses, warm, well-perfused. No calf tenderness. R pedal edema 2+. LBKA with healed stump, no notable edema NEUROLOGICAL: Cranial nerves II-XII intact. Normal speech. gait not observed. CBC, BMP 09/11/18 09:00 09/11/18 09:00 Laboratory Results - last 24 hr 09/11/18 09/11/18 09/11/18 09:00 09:00 09:00 WBC 7.6 RBC 2.07 L Hgb 7.4 L Hct 21.6 L MCV 104.3 H MCH 35.9 H MCHC 34.4 RDW 25.0 H Plt Count 156 MPV 10.8 D Absolute Neuts (auto) 5.2 Neutrophils % 67.9 Neutrophils % (Manual) 53.9 Band Neutrophils % 8.8 Lymphocytes % 6.0 L D Lymphocytes % (Manual) 3.9 L D Monocytes % 25.3 H Monocytes % (Manual) 22 H Eosinophils % 0.4 D Eosinophils % (Manual) 1.0 D Basophils % 0.4 Basophils % (Manual) 0.0 Myelocytes % (Man) 0 Promyelocytes % (Man) 0 Blast Cells % (Manual) 0 Nucleated RBC % 0 Metamyelocytes 0 Hypochromia 0 Platelet Estimate Decreased Polychromasia 1+ Poikilocytosis 0 Basophilic Stippling 1+ Anisocytosis 2+ Microcytosis 1+ Macrocytosis 1+ Tear Drop Cells 1+ Ovalocytes 2+ Acanthocytes (Spur) 1+ VBG pH 7.26 L POC VBG pCO2 56.5 H D POC VBG pO2 21.6 L Mixed VBG HCO3 24.7 Sodium 140 Potassium 4.8 Chloride 108 H Carbon Dioxide 25 Anion Gap 7 L BUN 60 H Creatinine 2.3 H Creat Clearance w eGFR 28.50 Random Glucose 169 H Lactic Acid Calcium 7.7 L Phosphorus Magnesium Total Bilirubin 0.7 AST 23 ALT 61 Alkaline Phosphatase 134 H Creatine Kinase 34 Troponin I 0.02 B-Natriuretic Peptide 84394.3 H Total Protein 6.0 L Albumin 3.0 L Influenza A (Rapid) Influenza B (Rapid) 09/11/18 09/11/18 09/11/18 09:00 09:04 09:45 WBC RBC Hgb Hct MCV MCH MCHC RDW Plt Count MPV Absolute Neuts (auto) Neutrophils % Neutrophils % (Manual) Band Neutrophils % Lymphocytes % Lymphocytes % (Manual) Monocytes % Monocytes % (Manual) Eosinophils % Eosinophils % (Manual) Basophils % Basophils % (Manual) Myelocytes % (Man) Promyelocytes % (Man) Blast Cells % (Manual) Nucleated RBC % Metamyelocytes Hypochromia Platelet Estimate Polychromasia Poikilocytosis Basophilic Stippling Anisocytosis Microcytosis Macrocytosis Tear Drop Cells Ovalocytes Acanthocytes (Spur) VBG pH POC VBG pCO2 POC VBG pO2 Mixed VBG HCO3 Sodium Potassium Chloride Carbon Dioxide Anion Gap BUN Creatinine Creat Clearance w eGFR Random Glucose Lactic Acid 0.9 Calcium Phosphorus 3.8 Magnesium 2.0 Total Bilirubin AST ALT Alkaline Phosphatase Creatine Kinase Troponin I B-Natriuretic Peptide Total Protein Albumin Influenza A (Rapid) Negative Influenza B (Rapid) Negative Active Medications Albuterol/Ipratropium (Duoneb -) 1 amp NEB RQID AURELIO Aspirin (Ecotrin -) 81 mg PO DAILY AURELIO Furosemide (Lasix Injection -) 40 mg IVPUSH DAILY [facility] Last Admin: 09/11/18 13:58 Dose: 40 mg Ambulatory Orders Cyanocobalamin [Vitamin B12 -] 1,000 mcg PO DAILY 07/13/18 Epoetin Blue [Procrit -] 20,000 unit IJ WEEKLY 07/13/18 Gabapentin [Neurontin -] 100 mg PO Q8H PRN 07/13/18 Levothyroxine [Synthroid -] 25 mcg PO DAILY 07/13/18 Metoprolol Succinate 100 mg PO DAILY 07/13/18 Pantoprazole Sodium 40 mg PO DAILY 07/13/18 Polyethylene Glycol 3350 [Laxaclear] 17 gm PO DAILY 07/13/18 Sennosides [Senna -] 1 tab PO HS 07/13/18 Silver Sulfadiazine 1% Top Cr [Silvadene -] 1 applic TP DAILY 07/13/18 Tamsulosin HCl [Flomax -] 0.4 mg PO DAILY 07/13/18 Tiotropium Br/Olodaterol HCl [Stiolto Respimat Inhal [place]] 2 puff IH BID Budesonide/Formeterol Fumarate [SYMBICORT 160/4.5mcg -] 1 inh PO BID 09/01/18 Multivitamins [Multivit ([facility] Formulary)] 1 tab PO DAILY 09/01/18 Tramadol HCl 50 mg PO BID PRN 09/01/18 Alcohol Antiseptic Pads [Alcohol Prep Pads] 1 each TP ACHS #1 box 09/04/18 Lancets [Lancets Thin] 1 each MC AC #1 box 09/04/18 Miscellaneous Medical Supply [Glucometer Device] 1 each SQ ASDIR #1 kit Miscellaneous Medical Supply [Glucometer Test Strips #100] 1 each SQ ASDIR #1 box 09/04/18 Albuterol 0.083% Nebulizer Najma [Ventolin 0.083% Nebulizer Soln -] 1 amp NEB QID #1 amp 09/05/18 Albuterol Sulfate Inhaler - [Ventolin Hfa Inhaler -] 1 puff IH Q6H #1 inhaler Sitagliptin Phosphate [Januvia -] 25 mg PO DAILY@0700 #90 tab 09/05/18 Echocardiogram 05/30/2018 showed normal LV size, wall motion and systolic function. Normal RV. Borderline LA dilatation. Mild to moderate MR. No pericardial effusion. But Echocardiogram 07/14/18 shows LV moderately dilated. LV systolic fx is mildly reduced. mild global hypokinesis of the LV. RV is normal in size and fx. moderate mitral regurg. mild to mod valvular aortic stenosis. EF-45-50%. ASSESSMENT/PLAN: Patient is a 67 year old male with a PMHx significant for recent lung nodule, laryngeal cancer s/p radiation/and RT, COPD, , chronic anemia, CKD, DM, HTN, HLD, s/p LBKA and hypothyroidism, presenting with 3 days of increasing SOB from [facility]. #Acute on chronic HFrEF Iv lasix 40mg stat Iv lasix 40mg daily Daily weights Strict ins and outs Fluid restriction <1L/day Hold beta syed today, resume tomorrow Pt will benefit from ACEI- d/w cards, pending nephrology input with improvement in renal function BMP Cards-Dr Thompson ECHO #COPD Cont duonebs Add symbicort Hold off antibiotics at this time, not likely a COPD exacerbation Hold of systemic steroids Oxygen supplementation NC-2L to keep sats >90% # Maybe be contributing to CHF exacerbation D/W Cards- not candidate for procedure at this time Plan is to optimize medical mx first #chronic anemia Macrocytosis with leucopenia and anemia in past, R/O MDS could be due to CKD Hemon consult Received iron infusion and transfusions in past admission Elevated B12 (1921) and Folic acid (49) from past Monitor H&H On epoeitin from last visit Dr Haley on board #CKD Pt BUN/Cr-60/2.3 Dr Haley Cont diuresis Monitor BNP Avoid nephrotoxic drugs #DM ISS ACHS BGM ACHS Last [id number] (05/2018) #HTN Not hypertensive at this time Resume BB tomorrow and ACEI with improvement in kidney function #HLD Statins- resume #s/p LBKA Healed stump #Laryngeal cancer s/p radiation/and RT Stable Cont to monitor #hypothyroidism Cont levothyroid #recent lung nodule Cont to monitor #FEN No iv fluids Monitor lytes as needed Sodium controlled #Dispo: In patient tele Visit type - Emergency Visit Emergency Visit: Yes ED Registration Date: 09/11/18 Care time: The patient presented to the Emergency Department on the above date and was hospitalized for further evaluation of their emergent condition. - New Patient This patient is new to me today: Yes Date on this admission: 09/11/18 - Critical Care Critical Care patient: No
[2018-09-11] MEDS: FUROSEMIDE 40 MG/4 ML INJECTABLE VIAL IVPUSH SCH (13:58)
[2018-09-11] MEDS: ALBUTEROL SO4 2.5/IPRATROPIUM 0.5 INH SOL 3 ML VIAL.NEB. NEB SCH ×4 (14:29→20:13)
--- NOTE | 2018-09-11 14:58 | CON.CARD ---
Consult Consult Specialty:: Cardiology Referred by:: Hospitalist Medicine Reason for Consultation:: Dyspnea - History of Present Illness Chief Complaint: Dyspnea History of Present Illness: 67 year-old man, smoker, with a PMHx of HTN, DM, PVD, hyperlipidemia s/p left BKA, mod-severe COPD, active smokre 9 mm RUL nodule, h/o laryngeal ca s/p XRT and chemohypothyroidism, CKD with nephrotic syndrome, anemia post transfusion and Venofer ? MDS, diastolic dysfunction with moderate , hypothyroidism presented to the ER with worsening SOB and RLE swelling, feels better after BD. He sees Tello Manzano MD for cardiology [phone] ER course was notable for: (1) BNP-40,000, chest infiltrates (CXR), Chronic b/l pleural effusion (CT chest) (2) iv solumedrol 125, duonebs, lasix 20mg (pending), zosyn - History Source History Provided By: Patient Limitations to Obtaining History: No Limitations - Past Medical History Cardio/Vascular: Yes: HTN Pulmonary: Yes: COPD Renal/: Yes: Renal Inusuff, Other (hyperkalemia) Endocrine: Yes: Diabetes Mellitus, Hypothyroidism - Alcohol/Substance Use Hx Alcohol Use: No History of Substance Use: reports: None - Smoking History Smoking history: Current every day smoker Have you smoked in the past 12 months: Yes Aproximately how many cigarettes per day: 3 - Social History Usual Living Arrangement: Assisted Living History of Recent Travel: No Home Medications - Allergies Allergies/Adverse Reactions: Allergies Allergy/AdvReac Type Severity Reaction Status Date / Time No Known Allergies Allergy Verified 09/11/18 08:46 - Home Medications Home Medications: Ambulatory Orders Cyanocobalamin [Vitamin B12 -] 1,000 mcg PO DAILY 07/13/18 Epoetin Blue [Procrit -] 20,000 unit IJ WEEKLY 07/13/18 Gabapentin [Neurontin -] 100 mg PO Q8H PRN 07/13/18 Levothyroxine [Synthroid -] 25 mcg PO DAILY 07/13/18 Metoprolol Succinate 100 mg PO DAILY 07/13/18 Pantoprazole Sodium 40 mg PO DAILY 07/13/18 Polyethylene Glycol 3350 [Laxaclear] 17 gm PO DAILY 07/13/18 Sennosides [Senna -] 1 tab PO HS 07/13/18 Silver Sulfadiazine 1% Top Cr [Silvadene -] 1 applic TP DAILY 07/13/18 Tamsulosin HCl [Flomax -] 0.4 mg PO DAILY 07/13/18 Tiotropium Br/Olodaterol HCl [Stiolto Respimat Inhal [place]] 2 puff IH BID Budesonide/Formeterol Fumarate [SYMBICORT 160/4.5mcg -] 1 inh PO BID 09/01/18 Multivitamins [Multivit ([facility] Formulary)] 1 tab PO DAILY 09/01/18 Tramadol HCl 50 mg PO BID PRN 09/01/18 Alcohol Antiseptic Pads [Alcohol Prep Pads] 1 each TP ACHS #1 box 09/04/18 Lancets [Lancets Thin] 1 each MC AC #1 box 09/04/18 Miscellaneous Medical Supply [Glucometer Device] 1 each SQ ASDIR #1 kit Miscellaneous Medical Supply [Glucometer Test Strips #100] 1 each SQ ASDIR #1 box 09/04/18 Albuterol 0.083% Nebulizer Najma [Ventolin 0.083% Nebulizer Soln -] 1 amp NEB QID #1 amp 09/05/18 Albuterol Sulfate Inhaler - [Ventolin Hfa Inhaler -] 1 puff IH Q6H #1 inhaler Sitagliptin Phosphate [Januvia -] 25 mg PO DAILY@0700 #90 tab 09/05/18 Atorvastatin Ca [Lipitor] 40 mg PO HS 09/11/18 Review of Systems - Review of Systems Cardiovascular: reports: Edema Respiratory: reports: Exercise Intolerance, SOB Vital Signs: Vital Signs Temperature 98.0 F 09/11/18 08:46 Pulse Rate 78 09/11/18 08:46 Respiratory Rate 26 H 09/11/18 08:46 Blood Pressure 118/72 09/11/18 08:46 O2 Sat by Pulse Oximetry (%) 99 09/11/18 08:46 Constitutional: Yes: No Distress, Calm Neck: Yes: Supple Respiratory: Yes: Regular, Diminished Gastrointestinal: Yes: Normal Bowel Sounds, Soft Cardiovascular: Yes: Regular Rate and Rhythm JVD: No Carotid Bruit: No Heart Sounds: Yes: S1, S2 Murmur: Yes: Systolic Murmur, Grade 2 Extremities: Yes: Amputation (Left BKA) Edema: Yes Edema: RLE: 2+ - Other Data Labs, Other Data: CBC, BMP 09/11/18 09:00 09/11/18 09:00 Troponin, BNP 09/11/18 09:00 Troponin I 0.02 B-Natriuretic Peptide 47665.3 H Troponin, BNP 09/11/18 09:00 Troponin I 0.02 B-Natriuretic Peptide 43354.3 H Imaging - Results Chest X-ray: Report Reviewed (Bibasilar infiltrates) Problem List - Problems (1) Nephrotic range proteinuria Code(s): R80.9 - PROTEINURIA, UNSPECIFIED (2) Heart failure Code(s): I50.9 - HEART FAILURE, UNSPECIFIED Qualifiers: Heart failure type: combined systolic and diastolic Heart failure chronicity: acute on chronic Qualified Code(s): I50.43 - Acute on chronic combined systolic (congestive) and diastolic (congestive) heart failure (3) CKD (chronic kidney disease) Code(s): N18.9 - CHRONIC KIDNEY DISEASE, UNSPECIFIED Qualifiers: Chronic kidney disease stage: stage 3 (moderate) Qualified Code(s): N18.3 - Chronic kidney disease, stage 3 (moderate) (4) Cardiomyopathy as manifestation of underlying disease Code(s): I43 - CARDIOMYOPATHY IN DISEASES CLASSIFIED ELSEWHERE (5) Moderate aortic stenosis Code(s): I35.0 - NONRHEUMATIC AORTIC (VALVE) STENOSIS (6) Hypothyroid Code(s): E03.9 - HYPOTHYROIDISM, UNSPECIFIED Qualifiers: Hypothyroidism type: unspecified Qualified Code(s): E03.9 - Hypothyroidism , unspecified Assessment/Plan Echocardiogram 05/30/2018 showed normal LV size, wall motion and systolic function. Normal RV. Borderline LA dilatation. Moderate with SADAF = 0.93cm2, PG = 33.3 mmHg, MG = 21.3 mmHg. Mild to moderate MR. No pericardial effusion. Echocardiogram 07/14/18 shows LV moderately dilated. LV systolic fx is mildly reduced. mild global hypokinesis of the LV. RV is normal in size and fx. moderate mitral regurg. mild to mod valvular aortic stenosis. EF-45-50%. Chest CT 09/04/2018 Bilateral effusions with compressive ATX 1. BRAGG to AE mod-severe copd, active smoker 2. Acute on chronic diastolic/systolic failure with moderate 3. anemia post transfusion, ? MDS. 4. CKD with proteinuria - nephrotic 5. HTN 6. Type 2 DM 7. hypothyroidism 8. HLD 9. high transaminases from hepatic congestion?- improving 10. 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 IV diuresis with monitor diuretic response renal fxn and electrolyes, wrap leg 2. Continue bronchodilators, sterods, O2 as needed, empiric abx 3. JACKIE for anemia, IV Venofer 4. Resume Lipitor 40 qhs, continue Toprol XL 100 qd, CATHY-I/ARB once renal fxn stabilizes 5. Thank you for consultative opportunity
[2018-09-11 15:33] LABS: ARTERIAL BLD GAS O2 SATURATION 97.1 % (90-98.9); ARTERIAL BLOOD GAS BASE EXCESS -6.1 meq/l (-2-2); ARTERIAL BLOOD GAS PCO2 37.5 mmHg (35-45); ARTERIAL BLOOD GAS PO2 96.7 mmHg (80-100); ARTERIAL BLOOD GAS pH 7.32 (7.35-7.45); CARBOXYHEMOGLOBIN 1.7 gm% (0.5-2.0)
[2018-09-11 15:36] LABS: ALLENS TEST POSITIVE
[2018-09-11] MEDS ORDERED: traMADol HCL 50 MG TABLET PO PRN (18:01)
--- NOTE | 2018-09-11 18:01 | PN ---
Teaching Attending Note Name of Resident: Jeanne Whitt ATTENDING PHYSICIAN STATEMENT I saw and evaluated the patient. I reviewed the resident's note and discussed the case with the resident. I agree with the resident's findings and plan as documented. SUBJECTIVE: Feels better s/p IV Lasix, less SOB OBJECTIVE: Afebrile, Hemodynamically Stable. Last Vital Signs Temp Pulse Resp BP Pulse Ox 98.0 F 78 26 H 118/72 98 09/11/18 08:46 09/11/18 08:46 09/11/18 08:46 09/11/18 08:46 09/11/18 09:00 HEENT - Normocephalic, Atraumatic Heart - S1, S2, soft SM Lungs - bibasal crackles. Abdomen - soft, non-tender. Bowel Sounds normal. Extremities - L BKA. RLE edema+++ Laboratory Results - last 24 hr 09/11/18 09/11/18 09/11/18 09:00 09:00 09:00 WBC 7.6 RBC 2.07 L Hgb 7.4 L Hct 21.6 L MCV 104.3 H MCH 35.9 H MCHC 34.4 RDW 25.0 H Plt Count 156 MPV 10.8 D Absolute Neuts (auto) 5.2 Neutrophils % 67.9 Neutrophils % (Manual) 53.9 Band Neutrophils % 8.8 Lymphocytes % 6.0 L D Lymphocytes % (Manual) 3.9 L D Monocytes % 25.3 H Monocytes % (Manual) 22 H Eosinophils % 0.4 D Eosinophils % (Manual) 1.0 D Basophils % 0.4 Basophils % (Manual) 0.0 Myelocytes % (Man) 0 Promyelocytes % (Man) 0 Blast Cells % (Manual) 0 Nucleated RBC % 0 Metamyelocytes 0 Hypochromia 0 Platelet Estimate Decreased Polychromasia 1+ Poikilocytosis 0 Basophilic Stippling 1+ Anisocytosis 2+ Microcytosis 1+ Macrocytosis 1+ Tear Drop Cells 1+ Ovalocytes 2+ Acanthocytes (Spur) 1+ Puncture Site ABG pH ABG pCO2 at Pt Temp ABG pO2 at Pt Temp ABG HCO3 ABG O2 Sat (Measured) ABG O2 Content ABG Base Excess Freedom Test VBG pH 7.26 L POC VBG pCO2 56.5 H D POC VBG pO2 21.6 L Mixed VBG HCO3 24.7 Carboxyhemoglobin Methemoglobin Oxygen Flow Rate Sodium 140 Potassium 4.8 Chloride 108 H Carbon Dioxide 25 Anion Gap 7 L BUN 60 H Creatinine 2.3 H Creat Clearance w eGFR 28.50 Random Glucose 169 H Lactic Acid Calcium 7.7 L Phosphorus Magnesium Total Bilirubin 0.7 AST 23 ALT 61 Alkaline Phosphatase 134 H Creatine Kinase 34 Troponin I 0.02 B-Natriuretic Peptide 35321.3 H Total Protein 6.0 L Albumin 3.0 L Influenza A (Rapid) Influenza B (Rapid) 09/11/18 09/11/18 09/11/18 09:00 09:04 09:45 WBC RBC Hgb Hct MCV MCH MCHC RDW Plt Count MPV Absolute Neuts (auto) Neutrophils % Neutrophils % (Manual) Band Neutrophils % Lymphocytes % Lymphocytes % (Manual) Monocytes % Monocytes % (Manual) Eosinophils % Eosinophils % (Manual) Basophils % Basophils % (Manual) Myelocytes % (Man) Promyelocytes % (Man) Blast Cells % (Manual) Nucleated RBC % Metamyelocytes Hypochromia Platelet Estimate Polychromasia Poikilocytosis Basophilic Stippling Anisocytosis Microcytosis Macrocytosis Tear Drop Cells Ovalocytes Acanthocytes (Spur) Puncture Site ABG pH ABG pCO2 at Pt Temp ABG pO2 at Pt Temp ABG HCO3 ABG O2 Sat (Measured) ABG O2 Content ABG Base Excess Freedom Test VBG pH POC VBG pCO2 POC VBG pO2 Mixed VBG HCO3 Carboxyhemoglobin Methemoglobin Oxygen Flow Rate Sodium Potassium Chloride Carbon Dioxide Anion Gap BUN Creatinine Creat Clearance w eGFR Random Glucose Lactic Acid 0.9 Calcium Phosphorus 3.8 Magnesium 2.0 Total Bilirubin AST ALT Alkaline Phosphatase Creatine Kinase Troponin I B-Natriuretic Peptide Total Protein Albumin Influenza A (Rapid) Negative Influenza B (Rapid) Negative 09/11/18 15:28 WBC RBC Hgb Hct MCV MCH MCHC RDW Plt Count MPV Absolute Neuts (auto) Neutrophils % Neutrophils % (Manual) Band Neutrophils % Lymphocytes % Lymphocytes % (Manual) Monocytes % Monocytes % (Manual) Eosinophils % Eosinophils % (Manual) Basophils % Basophils % (Manual) Myelocytes % (Man) Promyelocytes % (Man) Blast Cells % (Manual) Nucleated RBC % Metamyelocytes Hypochromia Platelet Estimate Polychromasia Poikilocytosis Basophilic Stippling Anisocytosis Microcytosis Macrocytosis Tear Drop Cells Ovalocytes Acanthocytes (Spur) Puncture Site Left radial ABG pH 7.32 L ABG pCO2 at Pt Temp 37.5 ABG pO2 at Pt Temp 96.7 ABG HCO3 18.9 L ABG O2 Sat (Measured) 97.1 ABG O2 Content 9.5 L* ABG Base Excess -6.1 L Freedom Test Positive VBG pH POC VBG pCO2 POC VBG pO2 Mixed VBG HCO3 Carboxyhemoglobin 1.7 Methemoglobin 0.5 Oxygen Flow Rate 2l Sodium Potassium Chloride Carbon Dioxide Anion Gap BUN Creatinine Creat Clearance w eGFR Random Glucose Lactic Acid Calcium Phosphorus Magnesium Total Bilirubin AST ALT Alkaline Phosphatase Creatine Kinase Troponin I B-Natriuretic Peptide Total Protein Albumin Influenza A (Rapid) Influenza B (Rapid) ASSESSMENT/PLAN 67 year old male assisted living facility resident, with history of larngeal Ca s/p RTx, Chronic Systolic CHF, BPH, Chronic Respiratory Failure sec to COPD/CHF on 2L O2 via NC (recently discharged 09/05/18), active smoker, CKD 3, Chronic Anemia, HTN, HLD, PAD s/p LBKA, Hypothyroidism, presents with increasing SOB for 1 month worse over the past 3 days, exacerbated by exertion, not accompanies by CP/palps/orthopnea or PND. NO fever/chills/cough/sputum. ECHO 07/14/18 shows moderately dilated LV with EF 45-50% and mild global hypokinesis of the LV. Moderate MR and Mod . 1. Acute on Chronic Systolic CHF with moderate , with clinical evidence of fluid overload BNP 40,000 CXR - chronic bilateral pleural effusions Started on IV LAsix. Cardiology consult for optimization of CHF meds including diuretics and ACEI and eval for Aortic Stenosis. Hold BB today during exacerbation - will resume tomorrow AM. Daily weight, I/Os, Fluid Restriction 2. COPD No clear evidence of exacerbation Continue DuoNEbs. Given Solumedrol in ED - will hold any further doses for now. Afebrile, Hemodynamically Stable. Hold Abx. Continue Symbicort, DuoNebs 3. Chronic Respiratory Failure secondary to 1 and 2 Continue supplemental O2 via NC No respiratory distress currently s/p Lasix 4. CKD3 Creat 2.3 - at baseline Follows with Nephrology Chronic Anemia - renal consult for Epo 5. Chronic Macrocytic Anemia B12/Folate wnl H/O consulted for work-up for MDS. H/H 7.4/21.6 MCV 104.3 Will monitor. 6. Hypothyroidism - Continue Levothyroxine. Will check TSH 7. BPH - Continue Tamsulosin 8. HTN -Continue Metoprolol. 9. DM 2 - Normally on Januvia. Will maintain on SSI during in-patient stay. 10. HLD - Continue Statin
[2018-09-11] MEDS: INSULIN SLIDING SCALE (NOVOLOG) 1 VIAL SQ SCH (18:05)
[2018-09-12] MEDS: HEPARIN NA (PORCINE) 5,000 UNITS/ML 1ML VIAL SQ SCH ×2 (00:01→13:10)
[2018-09-12] MEDS: ATORVASTATIN CA 40 MG TABLET (FP) PO SCH ×2 (00:11→23:10)
[2018-09-12] MEDS ORDERED: ATORVASTATIN CA 40 MG TABLET (FP) ONE (00:14)
[2018-09-12] MEDS ORDERED: GABAPENTIN 100 MG CAPSULE (FP) ONE (00:14)
[2018-09-12] MEDS ORDERED: HEPARIN NA (PORCINE) 5,000 UNITS/ML 1ML VIAL ONE (00:14)
[2018-09-12] MEDS ORDERED: INSULIN (NOVOLOG) ASPART 100 UNITS/ML 10ML VIAL ONE (00:28)
[2018-09-12] MEDS: INSULIN SLIDING SCALE (NOVOLOG) 1 VIAL SQ SCH ×5 (00:30→23:10)
[2018-09-12] MEDS: GABAPENTIN 100 MG CAPSULE (FP) PO SCH ×4 (00:35→23:10)
[2018-09-12] MEDS: SENNOSIDES 8.6MG TABLET (FP) PO SCH ×2 (00:35→23:10)
[2018-09-12] MEDS: BUDESONIDE/FORMETEROL FUMARATE 160/4.5 mcg INHALER IH SCH ×3 (01:04→23:09)
[2018-09-12] MEDS ORDERED: ALBUTEROL SO4 2.5/IPRATROPIUM 0.5 INH SOL 3 ML VIAL.NEB. NEB ONE (01:06)
[2018-09-12] MEDS: LEVOTHYROXINE NA 25 MCG TABLET (FP) PO SCH (06:44)
[2018-09-12] MEDS: ALBUTEROL SO4 2.5/IPRATROPIUM 0.5 INH SOL 3 ML VIAL.NEB. NEB SCH ×5 (06:45→20:43)
--- NOTE | 2018-09-12 07:15 | EKG ---
Test Reason : Blood Pressure : / mmHG Vent. Rate : 076 BPM Atrial Rate : 076 BPM P-R Int : 206 ms QRS Dur : 128 ms QT Int : 424 ms P-R-T Axes : 074 -73 004 degrees QTc Int : 477 ms NORMAL SINUS RHYTHM LEFT AXIS DEVIATION RIGHT BUNDLE BRANCH BLOCK ABNORMAL ECG WHEN COMPARED WITH ECG OF 01-SEP-2018 12:35, NO SIGNIFICANT CHANGE WAS FOUND Confirmed by JOE BRADLEY MD ([id number]) on 09/12/2018 7:14:45 AM Referred By: Confirmed By:JOE BRADLEY MD
--- NOTE | 2018-09-12 10:39 | PN ---
Progress Note (short form) - Note Progress Note: SUBJECTIVE: Some improvement in SOB. No cough/sputum/hemoptysis. No fever/ chills. OBJECTIVE: Afebrile, Hemodynamically Stable. Last Vital Signs Temp Pulse Resp BP Pulse Ox 98.0 F 75 20 98/58 L 95 09/12/18 02:00 09/12/18 05:00 09/12/18 05:00 09/12/18 05:00 09/12/18 09:00 HEENT - Normocephalic, Atraumatic Heart - S1, S2, soft SM Lungs - decreased air entry bibasally with few crackles. Abdomen - soft, non-tender. Bowel Sounds normal. Extremities - L BKA. RLE edema+++ Laboratory Results - last 24 hr 09/11/18 09/11/18 09/11/18 09:00 15:28 17:50 Neutrophils % (Manual) 53.9 Band Neutrophils % 8.8 Lymphocytes % (Manual) 3.9 L D Monocytes % (Manual) 22 H Eosinophils % (Manual) 1.0 D Basophils % (Manual) 0.0 Myelocytes % (Man) 0 Promyelocytes % (Man) 0 Blast Cells % (Manual) 0 Metamyelocytes 0 Hypochromia 0 Platelet Estimate Decreased Polychromasia 1+ Poikilocytosis 0 Basophilic Stippling 1+ Anisocytosis 2+ Microcytosis 1+ Macrocytosis 1+ Tear Drop Cells 1+ Ovalocytes 2+ Acanthocytes (Spur) 1+ Puncture Site Left radial ABG pH 7.32 L ABG pCO2 at Pt Temp 37.5 ABG pO2 at Pt Temp 96.7 ABG HCO3 18.9 L ABG O2 Sat (Measured) 97.1 ABG O2 Content 9.5 L* ABG Base Excess -6.1 L Freedom Test Positive Carboxyhemoglobin 1.7 Methemoglobin 0.5 Oxygen Flow Rate 2l POC Glucometer 271.23090 09/12/18 06:42 Neutrophils % (Manual) Band Neutrophils % Lymphocytes % (Manual) Monocytes % (Manual) Eosinophils % (Manual) Basophils % (Manual) Myelocytes % (Man) Promyelocytes % (Man) Blast Cells % (Manual) Metamyelocytes Hypochromia Platelet Estimate Polychromasia Poikilocytosis Basophilic Stippling Anisocytosis Microcytosis Macrocytosis Tear Drop Cells Ovalocytes Acanthocytes (Spur) Puncture Site ABG pH ABG pCO2 at Pt Temp ABG pO2 at Pt Temp ABG HCO3 ABG O2 Sat (Measured) ABG O2 Content ABG Base Excess Freedom Test Carboxyhemoglobin Methemoglobin Oxygen Flow Rate POC Glucometer 155 Current Medications Generic Name Dose Route Start Last Admin Trade Name Freq PRN Reason Stop Dose Admin Albuterol/Ipratropium 1 amp 09/11/18 16:00 09/12/18 07:10 Duoneb - NEB 1 amp RQID AURELIO Administration Aspirin 81 mg 09/12/18 10:00 Ecotrin - PO DAILY AURELIO Atorvastatin Calcium 40 mg 09/11/18 22:00 09/12/18 00:11 Lipitor - PO 40 mg HS AURELIO Administration Budesonide/Formoterol Fumarate 1 puff 09/11/18 22:00 09/12/18 01:04 Symbicort 160/4.5mcg - IH 1 puff BID AURELIO Administration Cyanocobalamin 1,000 mcg 09/12/18 10:00 Vitamin B12 - PO DAILY [facility] Furosemide 40 mg 09/11/18 13:45 09/11/18 13:58 Lasix Injection - IVPUSH 40 mg DAILY AURELIO Administration Gabapentin 100 mg 09/11/18 22:00 09/12/18 06:44 Neurontin - PO 100 mg TID AURELIO Administration Heparin Sodium (Porcine) 5,000 unit 09/11/18 22:00 09/12/18 00:01 Heparin - SQ 5,000 unit BID AURELIO Administration Insulin Aspart 1 vial 09/11/18 16:30 09/12/18 06:44 Novolog Vial Sliding Scale - SQ 2 units ACHS AURELIO Administration Protocol Levothyroxine Sodium 25 mcg 09/12/18 07:00 09/12/18 06:44 Synthroid - PO 25 mcg DAILY@0700 AURELIO Administration Metoprolol Succinate 100 mg 09/12/18 10:00 Toprol Xl - PO DAILY [facility] Multivitamins/Minerals/Vitamin C 1 tab 09/12/18 10:00 Tab-A-Vit - PO DAILY [facility] Non-Formulary Medication 2 puff 09/11/18 22:00 Tiotropium Br/Olodaterol Hcl [Stiolto Respimat Inhal [place]] IH BID [facility] Pantoprazole Sodium 40 mg 09/12/18 10:00 Protonix - PO DAILY [facility] Polyethylene Glycol 17 gm 09/12/18 10:00 Miralax (For Daily Use) - PO DAILY [facility] Senna 1 tab 09/11/18 22:00 09/12/18 00:35 Senna - PO 1 tab HS AURELIO Administration Tamsulosin HCl 0.4 mg 09/12/18 08:30 Flomax - PO DAILY@0830 AURELIO Tramadol HCl 50 mg 09/11/18 18:01 Ultram - PO Q12H PRN PAIN LEVEL 4 - 6 ASSESSMENT/PLAN 67 year old male assisted living facility resident, with history of larngeal Ca s/p RTx, Chronic Systolic CHF, BPH, Chronic Respiratory Failure sec to COPD/CHF on 2L O2 via [place] (recently discharged 09/05/18), active smoker, CKD 3, Chronic Anemia, HTN, HLD, PAD s/p LBKA, Hypothyroidism, presents with increasing SOB for 1 month worse over the past 3 days, exacerbated by exertion, not accompanied by CP/palps/orthopnea or PND. No fever/chills/cough/sputum. ECHO 07/14/18 shows moderately dilated LV with EF 45-50% and mild global hypokinesis of the LV. Moderate MR and Mod . 1. Acute on Chronic Systolic CHF with moderate , with clinical evidence of fluid overload BNP 40,000 CXR - chronic bilateral pleural effusions Echo - EF 45-50%, Moderate . Started on IV Lasix. Cardiology consult for optimization of CHF meds including diuretics and ACEI and eval for Aortic Stenosis. Resume home Toprol XL today. Daily weight, I/Os, Fluid Restriction Repeat Echo requested by Cardiology. 2. COPD No clear evidence of exacerbation Continue DuoNEbs. Given Solumedrol in ED - will hold any further doses for now. Afebrile, Hemodynamically Stable. Hold Abx. Continue Symbicort, DuoNebs 3. Chronic Respiratory Failure secondary to 1 and 2 Continue supplemental O2 via NC No respiratory distress currently s/p Lasix 4. CKD3 Creat 2.3 at presentation - at baseline - no labs available yet today. Follows with Nephrology Chronic Anemia - renal consulted for Epo 5. Chronic Macrocytic Anemia B12/Folate wnl H/O consulted for work-up for MDS. H/H 7.4/21.6 MCV 104.3 Will monitor. 6. Hypothyroidism - Continue Levothyroxine. TSH pending. 7. BPH - Continue Tamsulosin 8. HTN -Continue Metoprolol. 9. DM 2 - Normally on Januvia. Will maintain on SSI during in-patient stay. 10. HLD - Continue Statin DVT Px - Heparin SQ Visit type - Emergency Visit Emergency Visit: Yes ED Registration Date: 09/11/18 Care time: The patient presented to the Emergency Department on the above date and was hospitalized for further evaluation of their emergent condition. - New Patient This patient is new to me today: No - Critical Care Critical Care patient: No - Discharge Referral Referred to [facility] Med P.C.: No
[2018-09-12 11:37] LABS: BASO % 0.2 % (0-2.0); HEMATOCRIT 19.5 % (35.4-49); MCH 33.8 pg (25.7-33.7); MCHC 32.2 g/dl (32.0-35.9); MEAN CELL VOLUME 104.9 fl (80-96); MEAN PLT VOLUME 10.2 fl (7.5-11.1); MONO % 35.5 % (3.8-10.2); NEUT % 52.3 % (42.8-82.8); PLATELET COUNT 138 K/MM3 (134-434); RBC 1.86 M/mm3 (4.00-5.60); RDW 24.9 % (11.9-15.9); WHITE BLOOD COUNT 3.8 K/mm3 (4.0-10.0)
[2018-09-12 11:51] LABS: HEMOGLOBIN 6.3 GM/dL (11.7-16.9)
[2018-09-12 12:07] LABS: ALBUMIN 2.6 g/dl (3.4-5.0); ALK PHOS 105 U/L (45-117); ANION GAP 7 MMOL/L (8-16); BILIRUBIN,TOTAL 0.6 mg/dL (0.2-1); BLOOD UREA NITROGEN 73 mg/dL (7-18); CALCIUM 7.8 mg/dL (8.5-10.1); CHLORIDE 108 mmol/L (98-107); CO2 25 mmol/L (21-32); CREATININE 2.5 mg/dL (0.55-1.3); GLUCOSE,RANDOM 153 mg/dL (74-106); MAGNESIUM 2.2 mg/dL (1.8-2.4); PHOSPHOROUS 3.9 mg/dL (2.5-4.9); POTASSIUM 4.7 mmol/L (3.5-5.1); SGOT/AST 16 U/L (15-37); SGPT/ALT 48 U/L (13-61); SODIUM 139 mmol/L (136-145); TOT PROT 5.6 g/dl (6.4-8.2)
[2018-09-12] MEDS: PANTOPRAZOLE 40 MG TABLET (FP) PO SCH (13:10)
[2018-09-12] MEDS: MULTIVITAMINS (DAILY MVI) TABLET (FP) PO SCH (13:10)
[2018-09-12] MEDS: FUROSEMIDE 40 MG/4 ML INJECTABLE VIAL IVPUSH SCH (13:10)
[2018-09-12] MEDS: TAMSULOSIN HCL 0.4 MG CAP PO SCH (13:10)
[2018-09-12] MEDS: CYANOCOBALAMIN 1,000 MCG TABLET (FP) PO SCH (13:10)
[2018-09-12] MEDS: ASPIRIN COATED 81 MG TABLET.EC PO SCH (13:10)
[2018-09-12] MEDS: POLYETHYLENE GLYCOL 3350 119 GM BTL PO SCH (13:11)
--- NOTE | 2018-09-12 14:07 | ECHO ---
Name: MARK JOHNSTON Exam:Adult Echocardiogram Study Date: 09/12/2018 09:25 AM Age: 67 yrs Reason For Study: heart failure Height: 72 in Weight: 194 lb BSA: 2.1 m2 MMode/2D Measurements & Calculations IVSd: 1.3 cm LA dimension: 4.3 cm LVIDd: 5.7 cm LVIDs: 5.0 cm LVPWd: 0.93 cm EDV(Teich): 161.5 ml LVOT diam: 1.9 cm ESV(Teich): 117.3 ml Doppler Measurements & Calculations MV E max orquidea: 103.7 cm/sec TR max orquidea: 248.4 cm/sec MV A max orquidea: 76.5 cm/sec TR max P.7 mmHg MV E/A: 1.4 MV dec time: 0.05 sec Med Peak E' Orquidea: 4.1 cm/sec Med E/e': 25.3 Lat Peak E' Orquidea: 5.7 cm/sec Lat E/e': 18.3 Procedure The study was technically adequate with some images being suboptimal in quality. Left Ventricle The left ventricle is mildly dilated. Ejection Fraction = 35%. Diastolic dysfunction, Grade II, consi stent with elevated left atrial pressure. There is moderate lateral wall hypokinesis. There is inferior wal l akinesis. There is apical inferior wall akinesis. Right Ventricle The right ventricle is normal in size and function. Atria The left atrium is mildly dilated. Right atrial size is normal. Mitral Valve The mitral valve is normal in structure and function. There is moderate to severe mitral regurgitatio n. Tricuspid Valve There is mild tricuspid regurgitation. Right ventricular systolic pressure is elevated at 40 mmhg. Th ere is mild pulmonary hypertension. Aortic Valve There is moderate aortic sclerosis.;. Pulmonic Valve The pulmonic valve is not well visualized. Great Vessels The aortic root is normal size. Pericardium/Pleura There is no pericardial effusion. There is a ascites present. Interpretation Summary Dilated LV with segmental wall motion abnormalities as described below with moderately reduced LV sys tolic function. There is moderate to severe mitral regurgitation. The right ventricle is normal in size and function. There is mild pulmonary hypertension. There is a ascites present. Marcus Cuello 09/12/2018 02:07 PM
[2018-09-12 14:22] LABS: ACANTHOCYTES 1+; ANISOCYTOSIS 2+; MACROCYTOSIS 1+; PLATELET ESTIMATE DECREASED; TEAR DROP CELLS 1+
--- NOTE | 2018-09-12 14:46 | PN ---
Progress Note, Physician History of Present Illness: Continue SOB and RLE swelling despite diuresis, profound anemia noted, denies bleed source. He sees Tello Manzano MD for cardiology [phone] - Current Medication List Current Medications: Active Medications Albuterol/Ipratropium (Duoneb -) 1 amp NEB RQID [facility] Last Admin: 09/12/18 11:32 Dose: 1 amp Aspirin (Ecotrin -) 81 mg PO DAILY [facility] Last Admin: 09/12/18 13:10 Dose: 81 mg Atorvastatin Calcium (Lipitor -) 40 mg PO HS [facility] Last Admin: 09/12/18 00:11 Dose: 40 mg Budesonide/Formoterol Fumarate (Symbicort 160/4.5mcg -) 1 puff IH BID [facility] Last Admin: 09/12/18 13:11 Dose: 1 puff Cyanocobalamin (Vitamin B12 -) 1,000 mcg PO DAILY [facility] Last Admin: 09/12/18 13:10 Dose: 1,000 mcg Furosemide (Lasix Injection -) 40 mg IVPUSH DAILY [facility] Last Admin: 09/12/18 13:10 Dose: 40 mg Gabapentin (Neurontin -) 100 mg PO TID [facility] Last Admin: 09/12/18 06:44 Dose: 100 mg Insulin Aspart (Novolog Vial Sliding Scale -) 1 vial SQ [facility]; Protocol Last Admin: 09/12/18 13:12 Dose: 4 units Levothyroxine Sodium (Synthroid -) 25 mcg PO DAILY@0700 [facility] Last Admin: 09/12/18 06:44 Dose: 25 mcg Metoprolol Succinate (Toprol Xl -) 100 mg PO DAILY [facility] Last Admin: 09/12/18 13:10 Dose: 100 mg Multivitamins/Minerals/Vitamin C (Tab-A-Vit -) 1 tab PO DAILY [facility] Last Admin: 09/12/18 13:10 Dose: 1 tab Non-Formulary Medication (Tiotropium Br/Olodaterol Hcl [Stiolto Respimat Inhal [place]]) 2 puff IH BID [facility] Pantoprazole Sodium (Protonix -) 40 mg PO DAILY [facility] Last Admin: 09/12/18 13:10 Dose: 40 mg Polyethylene Glycol (Miralax (For Daily Use) -) 17 gm PO DAILY [facility] Last Admin: 09/12/18 13:11 Dose: 17 gm Senna (Senna -) 1 tab PO HS [facility] Last Admin: 09/12/18 00:35 Dose: 1 tab Tamsulosin HCl (Flomax -) 0.4 mg PO DAILY@0830 [facility] Last Admin: 09/12/18 13:10 Dose: 0.4 mg Tramadol HCl (Ultram -) 50 mg PO Q12H PRN PRN Reason: PAIN LEVEL 4 - 6 - Objective Vital Signs: Vital Signs Temperature 98.0 F 09/12/18 02:00 Pulse Rate 75 09/12/18 05:00 Respiratory Rate 20 09/12/18 05:00 Blood Pressure 98/58 L 09/12/18 05:00 O2 Sat by Pulse Oximetry (%) 95 09/12/18 09:00 Constitutional: Yes: No Distress, Calm Neck: Yes: Supple Cardiovascular: Yes: Regular Rate and Rhythm, Murmur (2/6 SM) Respiratory: Yes: Regular, Diminished, On Nasal O2 Gastrointestinal: Yes: Normal Bowel Sounds, Soft Extremities: Yes: Amputation (left BKA) Edema: Yes Edema: RLE: 2+ Labs: CBC, BMP 09/12/18 10:50 09/12/18 10:50 - ....Imaging EKG: Report Reviewed (Tele: , DELICIA) Problem List - Problems (1) Nephrotic range proteinuria Code(s): R80.9 - PROTEINURIA, UNSPECIFIED (2) Heart failure Code(s): I50.9 - HEART FAILURE, UNSPECIFIED Qualifiers: Heart failure type: combined systolic and diastolic Heart failure chronicity: acute on chronic Qualified Code(s): I50.43 - Acute on chronic combined systolic (congestive) and diastolic (congestive) heart failure (3) CKD (chronic kidney disease) Code(s): N18.9 - CHRONIC KIDNEY DISEASE, UNSPECIFIED Qualifiers: Chronic kidney disease stage: stage 3 (moderate) Qualified Code(s): N18.3 - Chronic kidney disease, stage 3 (moderate) (4) Cardiomyopathy as manifestation of underlying disease Code(s): I43 - CARDIOMYOPATHY IN DISEASES CLASSIFIED ELSEWHERE (5) Hypothyroid Code(s): E03.9 - HYPOTHYROIDISM, UNSPECIFIED Qualifiers: Hypothyroidism type: unspecified Qualified Code(s): E03.9 - Hypothyroidism , unspecified Assessment/Plan Echocardiogram 05/30/2018 showed normal LV size, wall motion and systolic function. Normal RV. Borderline LA dilatation. Moderate with SADAF = 0.93cm2, PG = 33.3 mmHg, MG = 21.3 mmHg. Mild to moderate MR. No pericardial effusion. Echocardiogram 07/14/18 shows LV moderately dilated. LV systolic fx is mildly reduced. mild global hypokinesis of the LV. RV is normal in size and fx. moderate mitral regurg. mild to mod valvular aortic stenosis. EF-45-50%. Echocardiogram 09/12/2018: Dilated LV with moderate decreased LV fxn, mod- severe MR, normal RV size and fxn, mild pulm HTN RVSP 40 mmHg, ascites, mod AV sclerosis Chest CT 09/04/2018 Bilateral effusions with compressive ATX 1. BRAGG to AE mod-severe copd, active smoker 2. Acute on chronic diastolic/systolic failure 3. Anemia post transfusion, ? MDS. 4. CKD with proteinuria - nephrotic 5. HTN 6. Type 2 DM 7. hypothyroidism 8. HLD 9. high transaminases from hepatic congestion?- improving 10. 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 IV diuresis with monitor diuretic response renal fxn and electrolyes, wrap leg 2. Continue bronchodilators, sterods, O2 as needed, empiric abx 3. JACKIE for anemia, IV Venofer, transfuse to maintain Hgb>8.0 4. Continue ASA 81 qd, Lipitor 40 qhs, Toprol XL 100 qd, CATHY-I/ARB once renal fxn stabilizes
[2018-09-12] MEDS ORDERED: FUROSEMIDE 40 MG/4 ML INJECTABLE VIAL IVPUSH ONE (14:57)
--- NOTE | 2018-09-12 16:06 | CONSULT ---
Consult Consult Specialty:: Nephrology Reason for Consultation:: CKD - History of Present Illness Chief Complaint: shortness of breath History of Present Illness: Pt is a 67 year old male with pmhx of CKD, anemia, PVD and active smoking who presents to the ER with shortness of breath. He has gained about 10 pounds. He also complains of edema in his leg. He denies chest pain. He denies dysuria or hematuria. - History Source History Provided By: Patient - Past Medical History Cardio/Vascular: Yes: HTN Pulmonary: Yes: COPD Renal/: Yes: Renal Inusuff, Other (hyperkalemia) Endocrine: Yes: Diabetes Mellitus, Hypothyroidism - Alcohol/Substance Use Hx Alcohol Use: No History of Substance Use: reports: None - Smoking History Smoking history: Current every day smoker Have you smoked in the past 12 months: Yes Aproximately how many cigarettes per day: 3 - Social History Usual Living Arrangement: Assisted Living History of Recent Travel: No Home Medications - Allergies Allergies/Adverse Reactions: Allergies Allergy/AdvReac Type Severity Reaction Status Date / Time No Known Allergies Allergy Verified 09/11/18 08:46 - Home Medications Home Medications: Ambulatory Orders Cyanocobalamin [Vitamin B12 -] 1,000 mcg PO DAILY 07/13/18 Epoetin Blue [Procrit -] 20,000 unit IJ WEEKLY 07/13/18 Gabapentin [Neurontin -] 100 mg PO Q8H PRN 07/13/18 Levothyroxine [Synthroid -] 25 mcg PO DAILY 07/13/18 Metoprolol Succinate 100 mg PO DAILY 07/13/18 Pantoprazole Sodium 40 mg PO DAILY 07/13/18 Polyethylene Glycol 3350 [Laxaclear] 17 gm PO DAILY 07/13/18 Sennosides [Senna -] 1 tab PO HS 07/13/18 Silver Sulfadiazine 1% Top Cr [Silvadene -] 1 applic TP DAILY 07/13/18 Tamsulosin HCl [Flomax -] 0.4 mg PO DAILY 07/13/18 Tiotropium Br/Olodaterol HCl [Stiolto Respimat Inhal [place]] 2 puff IH BID Budesonide/Formeterol Fumarate [SYMBICORT 160/4.5mcg -] 1 inh PO BID 09/01/18 Multivitamins [Multivit ([facility] Formulary)] 1 tab PO DAILY 09/01/18 Tramadol HCl 50 mg PO BID PRN 09/01/18 Alcohol Antiseptic Pads [Alcohol Prep Pads] 1 each TP ACHS #1 box 09/04/18 Lancets [Lancets Thin] 1 each MC AC #1 box 09/04/18 Miscellaneous Medical Supply [Glucometer Device] 1 each SQ ASDIR #1 kit Miscellaneous Medical Supply [Glucometer Test Strips #100] 1 each SQ ASDIR #1 box 09/04/18 Albuterol 0.083% Nebulizer Najma [Ventolin 0.083% Nebulizer Soln -] 1 amp NEB QID #1 amp 09/05/18 Albuterol Sulfate Inhaler - [Ventolin Hfa Inhaler -] 1 puff IH Q6H #1 inhaler Sitagliptin Phosphate [Januvia -] 25 mg PO DAILY@0700 #90 tab 09/05/18 Atorvastatin Ca [Lipitor] 40 mg PO HS 09/11/18 Family Disease History - Family Disease History Family History: Denies Review of Systems - Review of Systems Constitutional: reports: Malaise. denies: Chills HENT: reports: No Symptoms Neck: reports: No Symptoms Cardiovascular: reports: Edema, Palpitations Respiratory: reports: SOB, SOB on Exertion Gastrointestinal: reports: No Symptoms Genitourinary: reports: No Symptoms Neurological: reports: No Symptoms Endocrine: reports: No Symptoms Physical Exam Vital Signs: Vital Signs Temperature 98.0 F 09/12/18 02:00 Pulse Rate 75 09/12/18 05:00 Respiratory Rate 20 09/12/18 05:00 Blood Pressure 98/58 L 09/12/18 05:00 O2 Sat by Pulse Oximetry (%) 95 09/12/18 09:00 Constitutional: Yes: Calm Eyes: Yes: Conjunctiva Clear HENT: Yes: Atraumatic Neck: Yes: Supple Cardiovascular: Yes: S1, S2 Respiratory: Yes: On Nasal O2, Rhonchi Gastrointestinal: Yes: Soft Musculoskeletal: Yes: Other (amputation) Edema: Yes Neurological: Yes: Oriented Psychiatric: Yes: Oriented Labs: CBC, BMP 09/12/18 10:50 09/12/18 10:50 Laboratory Tests 12/23/18 12/23/18 12/24/18 09:00 09:04 10:50 Hgb 7.4 L 6.3 L* Sodium Potassium Carbon Dioxide Anion Gap BUN Creatinine Influenza A (Rapid) Negative Influenza B (Rapid) Negative 09/12/18 10:50 Hgb Sodium 139 Potassium 4.7 Carbon Dioxide 25 Anion Gap 7 L BUN 73 H Creatinine 2.5 H Influenza A (Rapid) Influenza B (Rapid) Imaging - Results Chest X-ray: Report Reviewed Problem List - Problems (1) COPD exacerbation Code(s): J44.1 - CHRONIC OBSTRUCTIVE PULMONARY DISEASE W (ACUTE) EXACERBATION (2) Heart failure Code(s): I50.9 - HEART FAILURE, UNSPECIFIED Qualifiers: Heart failure type: combined systolic and diastolic Heart failure chronicity: acute on chronic Qualified Code(s): I50.43 - Acute on chronic combined systolic (congestive) and diastolic (congestive) heart failure (3) Nephrotic range proteinuria Code(s): R80.9 - PROTEINURIA, UNSPECIFIED (4) CKD (chronic kidney disease) Code(s): N18.9 - CHRONIC KIDNEY DISEASE, UNSPECIFIED Qualifiers: Chronic kidney disease stage: stage 3 (moderate) Qualified Code(s): N18.3 - Chronic kidney disease, stage 3 (moderate) Assessment/Plan Current Medications Generic Name Dose Route Start Last Admin Trade Name Freq PRN Reason Stop Dose Admin Albuterol/Ipratropium 1 amp 09/11/18 16:00 09/12/18 15:52 Duoneb - NEB 1 amp RQID AURELIO Administration Aspirin 81 mg 09/12/18 10:00 09/12/18 13:10 Ecotrin - PO 81 mg DAILY AURELIO Administration Atorvastatin Calcium 40 mg 09/11/18 22:00 09/12/18 00:11 Lipitor - PO 40 mg HS AURELIO Administration Budesonide/Formoterol Fumarate 1 puff 09/11/18 22:00 09/12/18 13:11 Symbicort 160/4.5mcg - IH 1 puff BID AURELIO Administration Cyanocobalamin 1,000 mcg 09/12/18 10:00 09/12/18 13:10 Vitamin B12 - PO 1,000 mcg DAILY AURELIO Administration Furosemide 40 mg 09/11/18 13:45 09/12/18 13:10 Lasix Injection - IVPUSH 40 mg DAILY AURELIO Administration Gabapentin 100 mg 09/11/18 22:00 09/12/18 06:44 Neurontin - PO 100 mg TID AURELIO Administration Insulin Aspart 1 vial 09/11/18 16:30 09/12/18 13:12 Novolog Vial Sliding Scale - SQ 4 units ACHS AURELIO Administration Protocol Levothyroxine Sodium 25 mcg 09/12/18 07:00 09/12/18 06:44 Synthroid - PO 25 mcg DAILY@0700 AURELIO Administration Metoprolol Succinate 100 mg 09/12/18 10:00 09/12/18 13:10 Toprol Xl - PO 100 mg DAILY AURELIO Administration Multivitamins/Minerals/Vitamin C 1 tab 09/12/18 10:00 09/12/18 13:10 Tab-A-Vit - PO 1 tab DAILY AURELIO Administration Non-Formulary Medication 2 puff 09/11/18 22:00 Tiotropium Br/Olodaterol Hcl [Stiolto Respimat Inhal [place]] IH BID AURELIO Pantoprazole Sodium 40 mg 09/12/18 10:00 09/12/18 13:10 Protonix - PO 40 mg DAILY AURELIO Administration Polyethylene Glycol 17 gm 09/12/18 10:00 09/12/18 13:11 Miralax (For Daily Use) - PO 17 gm DAILY AURELIO Administration Senna 1 tab 09/11/18 22:00 09/12/18 00:35 Senna - PO 1 tab HS AURELIO Administration Tamsulosin HCl 0.4 mg 09/12/18 08:30 09/12/18 13:10 Flomax - PO 0.4 mg DAILY@0830 AURELIO Administration Tramadol HCl 50 mg 09/11/18 18:01 Ultram - PO Q12H PRN PAIN LEVEL 4 - 6 Impression 1. CKD 2. anemia 3. history of hyperkalemia 4. HTN 5. DM 6. hypothyroidism 7. HLD 8. copd 9. proteinuria - nephrotic 10. active smoker 11. fluid overload Plan - will give another dose of lasix - monitor renal function - will need a renal biopsy - not on bebeto or arb secondary to hyperkalemia - renal diet - monitor pulse ox - will follow Dr Haley
--- NOTE | 2018-09-12 21:01 | CONSULT ---
Consult Consult Specialty:: hematology Referred by:: Dr. 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 Being treated for COPD/CHF exacerbation. Pt has been evaluated by hematology during similar admissions, in May and 2 weeks ago. He has had macrocytic anemia (Hgb ~7) since at least 05/2018. Plt count normal. Intermittent leukopenia, generally with normal ANC. Prior w/u with elevated b12, high ferritin, neg SPEP, peripheral flow normal. EGD was normal. Planned for colonoscopy in Sep. Reports that he is getting JACKIE once a week in his assisted living facility, does not know the dose but states that it was recently doubled. Per med list from 06/2018 was getting Procrit 20,000 units weekly. Pt c/o SOB. Denies chest pain. s/p 1 u PRBC today. - Past Medical History Cardio/Vascular: Yes: HTN Pulmonary: Yes: COPD Renal/: Yes: Renal Inusuff, Other (hyperkalemia) Endocrine: Yes: Diabetes Mellitus, Hypothyroidism - Alcohol/Substance Use Hx Alcohol Use: No History of Substance Use: reports: None - Smoking History Smoking history: Current every day smoker Have you smoked in the past 12 months: Yes Aproximately how many cigarettes per day: 3 - Social History Usual Living Arrangement: Assisted Living History of Recent Travel: No Home Medications - Allergies Allergies/Adverse Reactions: Allergies Allergy/AdvReac Type Severity Reaction Status Date / Time No Known Allergies Allergy Verified 09/11/18 08:46 - Home Medications Home Medications: Ambulatory Orders Cyanocobalamin [Vitamin B12 -] 1,000 mcg PO DAILY 07/13/18 Epoetin Blue [Procrit -] 20,000 unit IJ WEEKLY 07/13/18 Gabapentin [Neurontin -] 100 mg PO Q8H PRN 07/13/18 Levothyroxine [Synthroid -] 25 mcg PO DAILY 07/13/18 Metoprolol Succinate 100 mg PO DAILY 07/13/18 Pantoprazole Sodium 40 mg PO DAILY 07/13/18 Polyethylene Glycol 3350 [Laxaclear] 17 gm PO DAILY 07/13/18 Sennosides [Senna -] 1 tab PO HS 07/13/18 Silver Sulfadiazine 1% Top Cr [Silvadene -] 1 applic TP DAILY 07/13/18 Tamsulosin HCl [Flomax -] 0.4 mg PO DAILY 07/13/18 Tiotropium Br/Olodaterol HCl [Stiolto Respimat Inhal [place]] 2 puff IH BID Budesonide/Formeterol Fumarate [SYMBICORT 160/4.5mcg -] 1 inh PO BID 09/01/18 Multivitamins [Multivit ([facility] Formulary)] 1 tab PO DAILY 09/01/18 Tramadol HCl 50 mg PO BID PRN 09/01/18 Alcohol Antiseptic Pads [Alcohol Prep Pads] 1 each TP ACHS #1 box 09/04/18 Lancets [Lancets Thin] 1 each MC AC #1 box 09/04/18 Miscellaneous Medical Supply [Glucometer Device] 1 each SQ ASDIR #1 kit Miscellaneous Medical Supply [Glucometer Test Strips #100] 1 each SQ ASDIR #1 box 09/04/18 Albuterol 0.083% Nebulizer Najma [Ventolin 0.083% Nebulizer Soln -] 1 amp NEB QID #1 amp 09/05/18 Albuterol Sulfate Inhaler - [Ventolin Hfa Inhaler -] 1 puff IH Q6H #1 inhaler Sitagliptin Phosphate [Januvia -] 25 mg PO DAILY@0700 #90 tab 09/05/18 Atorvastatin Ca [Lipitor] 40 mg PO HS 09/11/18 Review of Systems - Review of Systems Constitutional: reports: Other (weight gain) Eyes: reports: No Symptoms Cardiovascular: reports: Shortness of Breath Respiratory: reports: Cough Gastrointestinal: reports: No Symptoms Physical Exam Vital Signs: Vital Signs Temperature 98 F 09/12/18 14:38 Pulse Rate 85 09/12/18 14:38 Respiratory Rate 20 09/12/18 14:38 Blood Pressure 120/86 09/12/18 14:38 O2 Sat by Pulse Oximetry (%) 95 09/12/18 09:00 Constitutional: Yes: Well Nourished Eyes: Yes: Conjunctiva Clear Cardiovascular: Yes: Regular Rate and Rhythm Respiratory: Yes: CTA Bilaterally Gastrointestinal: Yes: WNL, Soft, Other (no palpable HSM) Labs: CBC, BMP 09/12/18 10:50 09/12/18 10:50 Problem List - Problems (1) Anemia Assessment/Plan: 67M with 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 Also with macrocytic anemia. On Procrit. Prior w/u with elevated b12, high ferritin, neg SPEP, peripheral flow normal. Anemia can be explained by CKD but cause of macrocytosis is less clear. Please check folate, free light chains, and peripheral blood FISH. Would also obtain abdominal sono to evaluate for liver disease (?cardiac cirrhosis). May need BM bx. Will follow. Code(s): D64.9 - ANEMIA, UNSPECIFIED Qualifiers: Anemia type: other cause Other causes of anemia: other cause, not classified Qualified Code(s): D64.89 - Other specified anemias
[2018-09-13 03:21] LABS: BASO % 0.3 % (0-2.0); EOS % 0.2 % (0-4.5); HEMATOCRIT 22.8 % (35.4-49); HEMOGLOBIN 7.9 GM/dL (11.7-16.9); LYMPH % 12.3 % (8-40); MCH 35.5 pg (25.7-33.7); MCHC 34.7 g/dl (32.0-35.9); MEAN CELL VOLUME 102.5 fl (80-96); MEAN PLT VOLUME 10.9 fl (7.5-11.1); MONO % 36.3 % (3.8-10.2); NEUT % 50.9 % (42.8-82.8); PLATELET COUNT 172 K/MM3 (134-434); RBC 2.23 M/mm3 (4.00-5.60); RDW 23.5 % (11.9-15.9); WHITE BLOOD COUNT 4.7 K/mm3 (4.0-10.0)
[2018-09-13 03:58] LABS: ALBUMIN 2.6 g/dl (3.4-5.0); ALK PHOS 101 U/L (45-117); ANION GAP 8 MMOL/L (8-16); BILIRUBIN,TOTAL 1.1 mg/dL (0.2-1); BLOOD UREA NITROGEN 71 mg/dL (7-18); CALCIUM 7.5 mg/dL (8.5-10.1); CHLORIDE 106 mmol/L (98-107); CO2 26 mmol/L (21-32); CREATININE 2.4 mg/dL (0.55-1.3); GLUCOSE,RANDOM 121 mg/dL (74-106); PHOSPHOROUS 4.4 mg/dL (2.5-4.9); POTASSIUM 4.5 mmol/L (3.5-5.1); SGOT/AST 18 U/L (15-37); SGPT/ALT 48 U/L (13-61); SODIUM 140 mmol/L (136-145); TOT PROT 5.7 g/dl (6.4-8.2)
[2018-09-13] MEDS: INSULIN SLIDING SCALE (NOVOLOG) 1 VIAL SQ SCH ×4 (06:50→23:57)
[2018-09-13] MEDS: GABAPENTIN 100 MG CAPSULE (FP) PO SCH ×3 (06:50→23:11)
[2018-09-13] MEDS: LEVOTHYROXINE NA 25 MCG TABLET (FP) PO SCH (06:50)
[2018-09-13 07:03] LABS: BASO % 0.6 % (0-2.0); EOS % 0.4 % (0-4.5); HEMATOCRIT 23.9 % (35.4-49); HEMOGLOBIN 7.9 GM/dL (11.7-16.9); LYMPH % 15.6 % (8-40); MCHC 32.9 g/dl (32.0-35.9); MEAN CELL VOLUME 103.3 fl (80-96); MEAN PLT VOLUME 10.7 fl (7.5-11.1); MONO % 32.7 % (3.8-10.2); NEUT % 50.7 % (42.8-82.8); PLATELET COUNT 160 K/MM3 (134-434); RBC 2.32 M/mm3 (4.00-5.60); RDW 23.3 % (11.9-15.9); WHITE BLOOD COUNT 4.8 K/mm3 (4.0-10.0)
[2018-09-13 07:38] LABS: ANION GAP 8 MMOL/L (8-16); BLOOD UREA NITROGEN 71 mg/dL (7-18); CALCIUM 7.9 mg/dL (8.5-10.1); CHLORIDE 108 mmol/L (98-107); CO2 25 mmol/L (21-32); CREATININE 2.4 mg/dL (0.55-1.3); GLUCOSE,RANDOM 157 mg/dL (74-106); POTASSIUM 4.6 mmol/L (3.5-5.1); SODIUM 142 mmol/L (136-145)
[2018-09-13] MEDS: ALBUTEROL SO4 2.5/IPRATROPIUM 0.5 INH SOL 3 ML VIAL.NEB. NEB SCH ×4 (08:20→20:50)
[2018-09-13] MEDS ORDERED: PT OWN MED DRAWER 7, Y5N ONE (09:35)
[2018-09-13] MEDS: POLYETHYLENE GLYCOL 3350 119 GM BTL PO SCH (09:54)
[2018-09-13] MEDS: ASPIRIN COATED 81 MG TABLET.EC PO SCH (09:54)
[2018-09-13] MEDS: FUROSEMIDE 40 MG/4 ML INJECTABLE VIAL IVPUSH SCH ×2 (09:54→13:21)
[2018-09-13] MEDS: BUDESONIDE/FORMETEROL FUMARATE 160/4.5 mcg INHALER IH SCH ×2 (09:54→23:12)
[2018-09-13] MEDS: PANTOPRAZOLE 40 MG TABLET (FP) PO SCH (09:54)
[2018-09-13] MEDS: MULTIVITAMINS (DAILY MVI) TABLET (FP) PO SCH (09:54)
[2018-09-13] MEDS: TAMSULOSIN HCL 0.4 MG CAP PO SCH (09:54)
[2018-09-13] MEDS: CYANOCOBALAMIN 1,000 MCG TABLET (FP) PO SCH (09:55)
[2018-09-13 10:36] LABS: ANISOCYTOSIS 1+; MACROCYTOSIS 1+; OVALOCYTE 1+; PLATELET ESTIMATE DECREASED; TARGET CELLS 1+
--- NOTE | 2018-09-13 11:55 | PN ---
Progress Note, Physician History of Present Illness: 67 year old male assisted living facility resident, with history of larngeal Ca s/p RTx, Chronic Systolic CHF, BPH, Chronic Respiratory Failure sec to COPD/CHF on 2L O2 via NC (recently discharged 09/05/18), active smoker, CKD 3, Chronic Anemia, HTN, HLD, PAD s/p LBKA, Hypothyroidism, presents with increasing SOB for 1 month worse over the past 3 days, exacerbated by exertion, not accompanied by CP/palps/orthopnea or PND. No fever/chills/cough/sputum. - Current Medication List Current Medications: Active Medications Albuterol/Ipratropium (Duoneb -) 1 amp NEB RQID [facility] Last Admin: 09/13/18 08:20 Dose: 1 amp Aspirin (Ecotrin -) 81 mg PO DAILY [facility] Last Admin: 09/13/18 09:54 Dose: 81 mg Atorvastatin Calcium (Lipitor -) 40 mg PO HS [facility] Last Admin: 09/12/18 23:10 Dose: 40 mg Budesonide/Formoterol Fumarate (Symbicort 160/4.5mcg -) 1 puff IH BID [facility] Last Admin: 09/13/18 09:54 Dose: 1 puff Cyanocobalamin (Vitamin B12 -) 1,000 mcg PO DAILY [facility] Last Admin: 09/13/18 09:55 Dose: 1,000 mcg Furosemide (Lasix Injection -) 40 mg IVPUSH DAILY [facility] Last Admin: 09/13/18 09:54 Dose: 40 mg Gabapentin (Neurontin -) 100 mg PO TID [facility] Last Admin: 09/13/18 06:50 Dose: Not Given Insulin Aspart (Novolog Vial Sliding Scale -) 1 vial SQ ACHS [facility]; Protocol Last Admin: 09/13/18 11:01 Dose: 6 units Levothyroxine Sodium (Synthroid -) 25 mcg PO DAILY@0700 [facility] Last Admin: 09/13/18 06:50 Dose: 25 mcg Metoprolol Succinate (Toprol Xl -) 100 mg PO DAILY [facility] Last Admin: 09/13/18 09:55 Dose: 100 mg Multivitamins/Minerals/Vitamin C (Tab-A-Vit -) 1 tab PO DAILY [facility] Last Admin: 09/13/18 09:54 Dose: 1 tab Non-Formulary Medication (Tiotropium Br/Olodaterol Hcl [Stiolto Respimat Inhal [place]]) 2 puff IH BID [facility] Pantoprazole Sodium (Protonix -) 40 mg PO DAILY [facility] Last Admin: 09/13/18 09:54 Dose: 40 mg Polyethylene Glycol (Miralax (For Daily Use) -) 17 gm PO DAILY [facility] Last Admin: 09/13/18 09:54 Dose: Not Given Senna (Senna -) 1 tab PO HS [facility] Last Admin: 09/12/18 23:10 Dose: 1 tab Tamsulosin HCl (Flomax -) 0.4 mg PO DAILY@0830 [facility] Last Admin: 09/13/18 09:54 Dose: 0.4 mg Tramadol HCl (Ultram -) 50 mg PO Q12H PRN PRN Reason: PAIN LEVEL 4 - 6 - Objective Vital Signs: Vital Signs Temperature 98.3 F 09/13/18 08:45 Pulse Rate 73 09/13/18 08:45 Respiratory Rate 18 09/13/18 08:45 Blood Pressure 128/74 09/13/18 08:45 O2 Sat by Pulse Oximetry (%) 95 09/13/18 08:45 Constitutional: Yes: Well Nourished, No Distress, Calm Eyes: Yes: WNL, Conjunctiva Clear, EOM Intact HENT: Yes: WNL, Atraumatic, Normocephalic Neck: Yes: WNL, Supple, Trachea Midline Cardiovascular: Yes: WNL, Regular Rate and Rhythm Respiratory: Yes: WNL, Regular, CTA Bilaterally, SOB on Exertion Gastrointestinal: Yes: WNL, Normal Bowel Sounds, Soft Genitourinary: Yes: WNL Edema: No Integumentary: Yes: WNL Neurological: Yes: WNL, Alert, Oriented ...Motor Strength: WNL Psychiatric: Yes: WNL, Alert, Oriented Labs: CBC, BMP 09/13/18 05:30 09/13/18 05:30 Problem List - Problems (1) COPD exacerbation Code(s): J44.1 - CHRONIC OBSTRUCTIVE PULMONARY DISEASE W (ACUTE) EXACERBATION (2) Heart failure Assessment/Plan: 1. Acute on Chronic Systolic CHF with moderate , with clinical evidence of fluid overload BNP 40,000 CXR - chronic bilateral pleural effusions Echo - EF 45-50%, Moderate . Started on IV furosemide 80mg TWICE a day x 1 day then reassess the patient for the dose. Cardiology consult for optimization of CHF meds including diuretics and ACEI and eval for Aortic Stenosis. c/w metoprolol succinate . Daily weight, I/Os, Fluid Restriction Code(s): I50.9 - HEART FAILURE, UNSPECIFIED Qualifiers: Heart failure type: combined systolic and diastolic Heart failure chronicity: acute on chronic Qualified Code(s): I50.43 - Acute on chronic combined systolic (congestive) and diastolic (congestive) heart failure (3) CKD (chronic kidney disease) Assessment/Plan: CKD3 Creat 2.3 at presentation - at baseline - no labs available yet today. Follows with Nephrology Chronic Anemia - renal consulted for Epo Code(s): N18.9 - CHRONIC KIDNEY DISEASE, UNSPECIFIED Qualifiers: Chronic kidney disease stage: stage 3 (moderate) Qualified Code(s): N18.3 - Chronic kidney disease, stage 3 (moderate) (4) Anemia Assessment/Plan: / to CKD will follow nephrology recommendation. Code(s): D64.9 - ANEMIA, UNSPECIFIED Qualifiers: Anemia type: other cause Other causes of anemia: other cause, not classified Qualified Code(s): D64.89 - Other specified anemias (5) Cardiomyopathy as manifestation of underlying disease Assessment/Plan: c/w metoprolol succinate titrate to achieve HR of 60-70BPM patient might benefit from addition of entresto (sacubatril/valsartan) after the MEENAKSHI resolves if ACEI/ARB or entresto are contra-indicated then consider hydralazine/ isosorbide for the CHF Code(s): I43 - CARDIOMYOPATHY IN DISEASES CLASSIFIED ELSEWHERE (6) Moderate aortic stenosis Assessment/Plan: stable avoid repeat echo to f.u the progression. Code(s): I35.0 - NONRHEUMATIC AORTIC (VALVE) STENOSIS (7) COPD (chronic obstructive pulmonary disease) Assessment/Plan: Chronic Respiratory Failure secondary to COPD exacerbation with DCHF No clear evidence of exacerbation Continue DuoNEbs. Given Solumedrol in ED - will hold any further doses for now. Afebrile, Hemodynamically Stable. Hold Abx. Continue Symbicort, DuoNebs Continue supplemental O2 via NC No respiratory distress currently s/p Lasix Code(s): J44.9 - CHRONIC OBSTRUCTIVE PULMONARY DISEASE, UNSPECIFIED (8) Hypothyroid Assessment/Plan: Hypothyroidism - Continue Levothyroxine. Code(s): E03.9 - HYPOTHYROIDISM, UNSPECIFIED Qualifiers: Hypothyroidism type: unspecified Qualified Code(s): E03.9 - Hypothyroidism , unspecified (9) BPH (benign prostatic hyperplasia) Assessment/Plan: c/w tamsulosin 0.4mg daily Code(s): N40.0 - BENIGN PROSTATIC HYPERPLASIA WITHOUT LOWER URINRY TRACT SYMP (10) Macrocytic anemia Assessment/Plan: 5. Chronic Macrocytic Anemia B12/Folate wnl H/O consulted for work-up for MDS. H/H 7.4/21.6 MCV 104.3 Will monitor. Code(s): D53.9 - NUTRITIONAL ANEMIA, UNSPECIFIED (11) Dyslipidemia (high LDL; low HDL) Assessment/Plan: Continue Statin Code(s): E78.5 - HYPERLIPIDEMIA, UNSPECIFIED (12) Non-insulin dependent type 2 diabetes mellitus Assessment/Plan: DM 2 - Normally on Januvia. Will maintain on SSI during in-patient stay. Code(s): E11.9 - TYPE 2 DIABETES MELLITUS WITHOUT COMPLICATIONS Assessment/Plan DVT Px - Heparin SQ
[2018-09-13 11:57] LABS: ANISOCYTOSIS 1+; MACROCYTOSIS 1+; OVALOCYTE 1+; PLATELET ESTIMATE NORMAL
--- NOTE | 2018-09-13 13:39 | PN ---
Progress Note, Physician History of Present Illness: SOB improved post transfusion and RLE swelling persists despite diuresis, denies bleed source. He sees Tello Manzano MD for cardiology [phone] - Current Medication List Current Medications: Active Medications Albuterol/Ipratropium (Duoneb -) 1 amp NEB RQID [facility] Last Admin: 09/13/18 12:29 Dose: 1 amp Aspirin (Ecotrin -) 81 mg PO DAILY [facility] Last Admin: 09/13/18 09:54 Dose: 81 mg Atorvastatin Calcium (Lipitor -) 40 mg PO HS [facility] Last Admin: 09/12/18 23:10 Dose: 40 mg Budesonide/Formoterol Fumarate (Symbicort 160/4.5mcg -) 1 puff IH BID [facility] Last Admin: 09/13/18 09:54 Dose: 1 puff Cyanocobalamin (Vitamin B12 -) 1,000 mcg PO DAILY [facility] Last Admin: 09/13/18 09:55 Dose: 1,000 mcg Furosemide (Lasix Injection -) 80 mg IVPUSH BID@0600,1400 [facility] Last Admin: 09/13/18 13:21 Dose: 80 mg Gabapentin (Neurontin -) 100 mg PO TID [facility] Last Admin: 09/13/18 13:02 Dose: 100 mg Insulin Aspart (Novolog Vial Sliding Scale -) 1 vial SQ ACHS [facility]; Protocol Last Admin: 09/13/18 11:01 Dose: 6 units Levothyroxine Sodium (Synthroid -) 25 mcg PO DAILY@0700 [facility] Last Admin: 09/13/18 06:50 Dose: 25 mcg Metoprolol Succinate (Toprol Xl -) 100 mg PO DAILY [facility] Last Admin: 09/13/18 09:55 Dose: 100 mg Multivitamins/Minerals/Vitamin C (Tab-A-Vit -) 1 tab PO DAILY [facility] Last Admin: 09/13/18 09:54 Dose: 1 tab Non-Formulary Medication (Tiotropium Br/Olodaterol Hcl [Stiolto Respimat Inhal [place]]) 2 puff IH BID [facility] Pantoprazole Sodium (Protonix -) 40 mg PO DAILY [facility] Last Admin: 09/13/18 09:54 Dose: 40 mg Polyethylene Glycol (Miralax (For Daily Use) -) 17 gm PO DAILY [facility] Last Admin: 09/13/18 09:54 Dose: Not Given Senna (Senna -) 1 tab PO HS [facility] Last Admin: 09/12/18 23:10 Dose: 1 tab Tamsulosin HCl (Flomax -) 0.4 mg PO DAILY@0830 [facility] Last Admin: 09/13/18 09:54 Dose: 0.4 mg Tramadol HCl (Ultram -) 50 mg PO Q12H PRN PRN Reason: PAIN LEVEL 4 - 6 - Objective Vital Signs: Vital Signs Temperature 98.3 F 09/13/18 08:45 Pulse Rate 73 09/13/18 08:45 Respiratory Rate 18 09/13/18 08:45 Blood Pressure 128/74 09/13/18 08:45 O2 Sat by Pulse Oximetry (%) 95 09/13/18 08:45 Constitutional: Yes: No Distress, Calm Neck: Yes: Supple Cardiovascular: Yes: Regular Rate and Rhythm Respiratory: Yes: Regular, Diminished Gastrointestinal: Yes: Normal Bowel Sounds, Soft Extremities: Yes: Amputation (Left BKA) Edema: Yes Edema: RLE: 2+ Labs: CBC, BMP 09/13/18 05:30 09/13/18 05:30 Problem List - Problems (1) Nephrotic range proteinuria Code(s): R80.9 - PROTEINURIA, UNSPECIFIED (2) Heart failure Code(s): I50.9 - HEART FAILURE, UNSPECIFIED Qualifiers: Heart failure type: combined systolic and diastolic Heart failure chronicity: acute on chronic Qualified Code(s): I50.43 - Acute on chronic combined systolic (congestive) and diastolic (congestive) heart failure (3) CKD (chronic kidney disease) Code(s): N18.9 - CHRONIC KIDNEY DISEASE, UNSPECIFIED Qualifiers: Chronic kidney disease stage: stage 3 (moderate) Qualified Code(s): N18.3 - Chronic kidney disease, stage 3 (moderate) (4) Cardiomyopathy as manifestation of underlying disease Code(s): I43 - CARDIOMYOPATHY IN DISEASES CLASSIFIED ELSEWHERE (5) Hypothyroid Code(s): E03.9 - HYPOTHYROIDISM, UNSPECIFIED Qualifiers: Hypothyroidism type: unspecified Qualified Code(s): E03.9 - Hypothyroidism , unspecified Assessment/Plan Echocardiogram 05/30/2018 showed normal LV size, wall motion and systolic function. Normal RV. Borderline LA dilatation. Moderate with SADAF = 0.93cm2, PG = 33.3 mmHg, MG = 21.3 mmHg. Mild to moderate MR. No pericardial effusion. Echocardiogram 07/14/18 shows LV moderately dilated. LV systolic fx is mildly reduced. mild global hypokinesis of the LV. RV is normal in size and fx. moderate mitral regurg. mild to mod valvular aortic stenosis. EF-45-50%. Echocardiogram 09/12/2018: Dilated LV with moderate decreased LV fxn, mod- severe MR, normal RV size and fxn, mild pulm HTN RVSP 40 mmHg, ascites, mod AV sclerosis Chest CT 09/04/2018 Bilateral effusions with compressive ATX 1. BRAGG to AE mod-severe copd, active smoker 2. Acute on chronic diastolic/systolic failure 3. Anemia post transfusion, ? MDS. 4. CKD with proteinuria - nephrotic 5. HTN 6. Type 2 DM 7. hypothyroidism 8. HLD 9. high transaminases from hepatic congestion?- improving 10. 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 IV diuresis with monitor diuretic response renal fxn and electrolyes, declines wrap leg 2. Continue bronchodilators, sterods, O2 as needed, empiric abx 3. JACKIE for anemia, IV Venofer, transfuse to maintain Hgb>8.0 4. Continue ASA 81 qd, Lipitor 40 qhs, Toprol XL 100 qd, not on CATHY-I/ARB due to hyperkalemia, start BiDil as hemodynamics tolerate 5. Eventual renal biopsy in future
[2018-09-13] MEDS: hydrALAZINE HCL 25 MG TABLET (FP) PO SCH ×2 (14:58→23:11)
[2018-09-13] MEDS ORDERED: FUROSEMIDE 40 MG/4 ML INJECTABLE VIAL IVPUSH SCH (16:00)
--- NOTE | 2018-09-13 16:14 | PN ---
Progress Note, Physician History of Present Illness: Pt seen and examined at bedside. He feels that his breathing is improving. - Current Medication List Current Medications: Active Medications Albuterol/Ipratropium (Duoneb -) 1 amp NEB RQID [facility] Last Admin: 09/13/18 12:29 Dose: 1 amp Aspirin (Ecotrin -) 81 mg PO DAILY [facility] Last Admin: 09/13/18 09:54 Dose: 81 mg Atorvastatin Calcium (Lipitor -) 40 mg PO HS [facility] Last Admin: 09/12/18 23:10 Dose: 40 mg Budesonide/Formoterol Fumarate (Symbicort 160/4.5mcg -) 1 puff IH BID [facility] Last Admin: 09/13/18 09:54 Dose: 1 puff Cyanocobalamin (Vitamin B12 -) 1,000 mcg PO DAILY [facility] Last Admin: 09/13/18 09:55 Dose: 1,000 mcg Furosemide (Lasix Injection -) 80 mg IVPUSH BID@0600,1400 [facility] Last Admin: 09/13/18 13:21 Dose: 80 mg Gabapentin (Neurontin -) 100 mg PO TID [facility] Last Admin: 09/13/18 13:02 Dose: 100 mg Hydralazine HCl (Apresoline -) 25 mg PO BID [facility] Last Admin: 09/13/18 14:58 Dose: 25 mg Insulin Aspart (Novolog Vial Sliding Scale -) 1 vial SQ ACHS [facility]; Protocol Last Admin: 09/13/18 16:09 Dose: 2 units Isosorbide Mononitrate (Imdur -) 30 mg PO DAILY [facility] Levothyroxine Sodium (Synthroid -) 25 mcg PO DAILY@0700 [facility] Last Admin: 09/13/18 06:50 Dose: 25 mcg Metoprolol Succinate (Toprol Xl -) 100 mg PO DAILY [facility] Last Admin: 09/13/18 09:55 Dose: 100 mg Multivitamins/Minerals/Vitamin C (Tab-A-Vit -) 1 tab PO DAILY [facility] Last Admin: 09/13/18 09:54 Dose: 1 tab Non-Formulary Medication (Tiotropium Br/Olodaterol Hcl [Stiolto Respimat Inhal [place]]) 2 puff IH BID [facility] Pantoprazole Sodium (Protonix -) 40 mg PO DAILY [facility] Last Admin: 09/13/18 09:54 Dose: 40 mg Polyethylene Glycol (Miralax (For Daily Use) -) 17 gm PO DAILY [facility] Last Admin: 09/13/18 09:54 Dose: Not Given Senna (Senna -) 1 tab PO HS [facility] Last Admin: 09/12/18 23:10 Dose: 1 tab Tamsulosin HCl (Flomax -) 0.4 mg PO DAILY@0830 [facility] Last Admin: 09/13/18 09:54 Dose: 0.4 mg Tramadol HCl (Ultram -) 50 mg PO Q12H PRN PRN Reason: PAIN LEVEL 4 - 6 - Objective Vital Signs: Vital Signs Temperature 99 F 09/13/18 15:41 Pulse Rate 76 09/13/18 15:41 Respiratory Rate 20 09/13/18 15:41 Blood Pressure 129/83 09/13/18 15:41 O2 Sat by Pulse Oximetry (%) 95 09/13/18 08:45 Constitutional: Yes: Calm Eyes: Yes: Conjunctiva Clear HENT: Yes: Atraumatic Cardiovascular: Yes: S1, S2 Respiratory: Yes: On Nasal O2 Gastrointestinal: Yes: Normal Bowel Sounds, Soft Genitourinary: Yes: WNL Musculoskeletal: Yes: Other (amputations) Integumentary: Yes: WNL Neurological: Yes: Oriented Psychiatric: Yes: Oriented Labs: CBC, BMP 09/13/18 05:30 09/13/18 05:30 Problem List - Problems (1) COPD exacerbation Code(s): J44.1 - CHRONIC OBSTRUCTIVE PULMONARY DISEASE W (ACUTE) EXACERBATION (2) Heart failure Code(s): I50.9 - HEART FAILURE, UNSPECIFIED Qualifiers: Heart failure type: combined systolic and diastolic Heart failure chronicity: acute on chronic Qualified Code(s): I50.43 - Acute on chronic combined systolic (congestive) and diastolic (congestive) heart failure (3) Nephrotic range proteinuria Code(s): R80.9 - PROTEINURIA, UNSPECIFIED (4) CKD (chronic kidney disease) Code(s): N18.9 - CHRONIC KIDNEY DISEASE, UNSPECIFIED Qualifiers: Chronic kidney disease stage: stage 3 (moderate) Qualified Code(s): N18.3 - Chronic kidney disease, stage 3 (moderate) Assessment/Plan Current Medications Generic Name Dose Route Start Last Admin Trade Name Freq PRN Reason Stop Dose Admin Albuterol/Ipratropium 1 amp 09/11/18 16:00 09/13/18 12:29 Duoneb - NEB 1 amp RQID [facility] Administration Aspirin 81 mg 09/12/18 10:00 09/13/18 09:54 Ecotrin - PO 81 mg DAILY [facility] Administration Atorvastatin Calcium 40 mg 09/11/18 22:00 09/12/18 23:10 Lipitor - PO 40 mg HS [facility] Administration Budesonide/Formoterol Fumarate 1 puff 09/11/18 22:00 09/13/18 09:54 Symbicort 160/4.5mcg - IH 1 puff BID [facility] Administration Cyanocobalamin 1,000 mcg 09/12/18 10:00 09/13/18 09:55 Vitamin B12 - PO 1,000 mcg DAILY [facility] Administration Furosemide 80 mg 09/13/18 14:00 09/13/18 13:21 Lasix Injection - IVPUSH 80 mg BID@0600,1400 [facility] Administration Gabapentin 100 mg 09/11/18 22:00 09/13/18 13:02 Neurontin - PO 100 mg TID [facility] Administration Hydralazine HCl 25 mg 09/13/18 14:00 09/13/18 14:58 Apresoline - PO 25 mg BID [facility] Administration Insulin Aspart 1 vial 09/11/18 16:30 09/13/18 16:09 Novolog Vial Sliding Scale - SQ 2 units ACHS [facility] Administration Protocol Isosorbide Mononitrate 30 mg 09/14/18 10:00 Imdur - PO DAILY [facility] Levothyroxine Sodium 25 mcg 09/12/18 07:00 09/13/18 06:50 Synthroid - PO 25 mcg DAILY@0700 [facility] Administration Metoprolol Succinate 100 mg 09/12/18 10:00 09/13/18 09:55 Toprol Xl - PO 100 mg DAILY [facility] Administration Multivitamins/Minerals/Vitamin C 1 tab 09/12/18 10:00 09/13/18 09:54 Tab-A-Vit - PO 1 tab DAILY [facility] Administration Non-Formulary Medication 2 puff 09/11/18 22:00 Tiotropium Br/Olodaterol Hcl [Stiolto Respimat Inhal [place]] IH BID [facility] Pantoprazole Sodium 40 mg 09/12/18 10:00 09/13/18 09:54 Protonix - PO 40 mg DAILY [facility] Administration Polyethylene Glycol 17 gm 09/12/18 10:00 09/13/18 09:54 Miralax (For Daily Use) - PO Not Given DAILY [facility] Senna 1 tab 09/11/18 22:00 09/12/18 23:10 Senna - PO 1 tab HS [facility] Administration Tamsulosin HCl 0.4 mg 09/12/18 08:30 09/13/18 09:54 Flomax - PO 0.4 mg DAILY@0830 [facility] Administration Tramadol HCl 50 mg 09/11/18 18:01 Ultram - PO Q12H PRN PAIN LEVEL 4 - 6 Impression 1. CKD 2. anemia 3. history of hyperkalemia 4. HTN 5. DM 6. hypothyroidism 7. HLD 8. copd 9. proteinuria - nephrotic 10. active smoker 11. fluid overload Plan - cont IV lasix - repeat labs in am - I recommend that he gets a renal biopsy - oncology follow up - follow up kappa and lambda chains - not on bebeto or arb secondary to hyperkalemia - renal diet - monitor pulse ox - volume status is improving - will follow Dr Haley
--- NOTE | 2018-09-13 17:55 | PN ---
Progress Note (short form) - Note Progress Note: Consult Progress note: Hematology/Oncology laying in bed in NAD. breathing has improved denies hematuria, dysuria, melena, hematochezia, bruising or bleeding, fevers, chest pain, cough Vital Signs Temperature 97.2 F L 09/13/18 17:16 Pulse Rate 81 09/13/18 17:16 Respiratory Rate 18 09/13/18 17:16 Blood Pressure 126/80 09/13/18 17:16 O2 Sat by Pulse Oximetry (%) 95 09/13/18 08:45 PE: NAD with nasal cannula 4L EOMI, no oral thrush CTAB, s1, s2 rrr abd obese, soft, nontender/nondistended left BKA right lower leg with 1+ edema CBCD WBC 4.8 K/mm3 (4.0-10.0) 09/13/18 05:30 RBC 2.32 M/mm3 (4.00-5.60) L 09/13/18 05:30 Hgb 7.9 GM/dL (11.7-16.9) L 09/13/18 05:30 Hct 23.9 % (35.4-49) L 09/13/18 05:30 MCV 103.3 fl (80-96) H 09/13/18 05:30 MCHC 32.9 g/dl (32.0-35.9) 09/13/18 05:30 RDW 23.3 % (11.9-15.9) H 09/13/18 05:30 Plt Count 160 K/MM3 (134-434) 09/13/18 05:30 MPV 10.7 fl (7.5-11.1) 09/13/18 05:30 CMP Sodium 142 mmol/L (136-145) 09/13/18 05:30 Potassium 4.6 mmol/L (3.5-5.1) 09/13/18 05:30 Chloride 108 mmol/L (98-107) H 09/13/18 05:30 Carbon Dioxide 25 mmol/L (21-32) 09/13/18 05:30 Anion Gap 8 MMOL/L (8-16) 09/13/18 05:30 BUN 71 mg/dL (7-18) H 09/13/18 05:30 Creatinine 2.4 mg/dL (0.55-1.3) H 09/13/18 05:30 Creat Clearance w eGFR 27.14 (>60) 09/13/18 05:30 Calcium 7.9 mg/dL (8.5-10.1) L 09/13/18 05:30 Total Bilirubin 1.1 mg/dL (0.2-1) H 09/13/18 03:15 AST 18 U/L (15-37) 09/13/18 03:15 ALT 48 U/L (13-61) 09/13/18 03:15 Alkaline Phosphatase 101 U/L (45-117) 09/13/18 03:15 Total Protein 5.7 g/dl (6.4-8.2) L 09/13/18 03:15 Albumin 2.6 g/dl (3.4-5.0) L 09/13/18 03:15 Laboratory Tests 05/31/18 05/31/18 05/31/18 05:30 05:30 05:30 Iron 27 L TIBC 128 L Iron Saturation 21 Transferrin Ferritin Total Protein Total Protein (PEP) 5.8 L Albumin Albumin (PEP) 2.9 Globulin 2.9 Albumin/Globulin Ratio 1.0 Beta Globulins 0.6 L Vitamin B12 1927 H TSH OBIE Screen Negative Free [place] LC, Quant Free Lambda LC, Quant Free [place]/Lambda Ratio 09/01/18 09/01/18 09/12/18 13:52 13:52 10:50 Iron TIBC Iron Saturation Transferrin 132 L Ferritin 1128.9 H Total Protein Total Protein (PEP) Albumin Albumin (PEP) Globulin Albumin/Globulin Ratio Beta Globulins Vitamin B12 TSH 2.39 D OIBE Screen Free [place] LC, Quant Free Lambda LC, Quant Free [place]/Lambda Ratio 09/13/18 09/13/18 03:15 05:30 Iron TIBC Iron Saturation Transferrin Ferritin Total Protein 5.7 L Total Protein (PEP) Albumin 2.6 L Albumin (PEP) Globulin Albumin/Globulin Ratio Beta Globulins Vitamin B12 TSH OBIE Screen Free [place] LC, Quant Pending Free Lambda LC, Quant Pending Free [place]/Lambda Ratio Pending Active Medications Albuterol/Ipratropium (Duoneb -) 1 amp NEB RQID [facility] Last Admin: 09/13/18 16:17 Dose: 1 amp Aspirin (Ecotrin -) 81 mg PO DAILY [facility] Last Admin: 09/13/18 09:54 Dose: 81 mg Atorvastatin Calcium (Lipitor -) 40 mg PO HS [facility] Last Admin: 09/12/18 23:10 Dose: 40 mg Budesonide/Formoterol Fumarate (Symbicort 160/4.5mcg -) 1 puff IH BID [facility] Last Admin: 09/13/18 09:54 Dose: 1 puff Cyanocobalamin (Vitamin B12 -) 1,000 mcg PO DAILY [facility] Last Admin: 09/13/18 09:55 Dose: 1,000 mcg Furosemide (Lasix Injection -) 80 mg IVPUSH BID@0600,1400 [facility] Last Admin: 09/13/18 13:21 Dose: 80 mg Gabapentin (Neurontin -) 100 mg PO TID [facility] Last Admin: 09/13/18 13:02 Dose: 100 mg Hydralazine HCl (Apresoline -) 25 mg PO BID [facility] Last Admin: 09/13/18 14:58 Dose: 25 mg Insulin Aspart (Novolog Vial Sliding Scale -) 1 vial SQ [facility]; Protocol Last Admin: 09/13/18 16:09 Dose: 2 units Isosorbide Mononitrate (Imdur -) 30 mg PO DAILY [facility] Levothyroxine Sodium (Synthroid -) 25 mcg PO DAILY@0700 [facility] Last Admin: 09/13/18 06:50 Dose: 25 mcg Metoprolol Succinate (Toprol Xl -) 100 mg PO DAILY [facility] Last Admin: 09/13/18 09:55 Dose: 100 mg Multivitamins/Minerals/Vitamin C (Tab-A-Vit -) 1 tab PO DAILY [facility] Last Admin: 09/13/18 09:54 Dose: 1 tab Non-Formulary Medication (Tiotropium Br/Olodaterol Hcl [Stiolto Respimat Inhal [place]]) 2 puff IH BID [facility] Pantoprazole Sodium (Protonix -) 40 mg PO DAILY [facility] Last Admin: 09/13/18 09:54 Dose: 40 mg Polyethylene Glycol (Miralax (For Daily Use) -) 17 gm PO DAILY [facility] Last Admin: 09/13/18 09:54 Dose: Not Given Senna (Senna -) 1 tab PO HS [facility] Last Admin: 09/12/18 23:10 Dose: 1 tab Tamsulosin HCl (Flomax -) 0.4 mg PO DAILY@0830 [facility] Last Admin: 09/13/18 09:54 Dose: 0.4 mg Tramadol HCl (Ultram -) 50 mg PO Q12H PRN PRN Reason: PAIN LEVEL 4 - 6 67M with 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 consulted for macrocytic anemia. Problem List: Macrocytic anemia hx of laryngeal cancer s/p chemo/RT DM COPD on home oxygen CKD stage IV CHF PAD A/P pt already on procrit, prior w/u with elevated b12, normal folate, high ferritin (1128.9), neg SPEP, peripheral flow normal. Anemia can be explained by CKD(anemia of chronic disease) but cause of macrocytosis is less clear. free light chains pending peripheral blood FISH ordered to be drawn tomorrow morning to evaluate further for MDS, pending results may need further investigation with bmbx if lab w/u unrevealing
[2018-09-13] MEDS: ATORVASTATIN CA 40 MG TABLET (FP) PO SCH (23:11)
[2018-09-13] MEDS: SENNOSIDES 8.6MG TABLET (FP) PO SCH (23:12)
[2018-09-14] MEDS: INSULIN SLIDING SCALE (NOVOLOG) 1 VIAL SQ SCH ×4 (06:09→21:39)
[2018-09-14] MEDS: FUROSEMIDE 40 MG/4 ML INJECTABLE VIAL IVPUSH SCH ×2 (06:16→13:58)
[2018-09-14] MEDS: LEVOTHYROXINE NA 25 MCG TABLET (FP) PO SCH (06:16)
[2018-09-14] MEDS: GABAPENTIN 100 MG CAPSULE (FP) PO SCH ×3 (06:16→21:39)
[2018-09-14 07:01] LABS: ANION GAP 6 MMOL/L (8-16); BLOOD UREA NITROGEN 66 mg/dL (7-18); CALCIUM 7.5 mg/dL (8.5-10.1); CHLORIDE 109 mmol/L (98-107); CO2 27 mmol/L (21-32); CREATININE 2.2 mg/dL (0.55-1.3); GLUCOSE,RANDOM 147 mg/dL (74-106); POTASSIUM 3.9 mmol/L (3.5-5.1); SODIUM 142 mmol/L (136-145)
[2018-09-14] MEDS: ALBUTEROL SO4 2.5/IPRATROPIUM 0.5 INH SOL 3 ML VIAL.NEB. NEB SCH ×4 (07:03→20:30)
[2018-09-14] MEDS ORDERED: PT OWN MED DRAWER 7, Y5N ONE (08:32)
[2018-09-14] MEDS: TAMSULOSIN HCL 0.4 MG CAP PO SCH (08:57)
[2018-09-14 08:59] LABS: BASO % 0.6 % (0-2.0); EOS % 0.7 % (0-4.5); HEMATOCRIT 22.2 % (35.4-49); HEMOGLOBIN 7.2 GM/dL (11.7-16.9); LYMPH % 15.3 % (8-40); MCH 33.7 pg (25.7-33.7); MCHC 32.5 g/dl (32.0-35.9); MEAN CELL VOLUME 103.6 fl (80-96); MEAN PLT VOLUME 10.6 fl (7.5-11.1); MONO % 31.3 % (3.8-10.2); NEUT % 52.1 % (42.8-82.8); PLATELET COUNT 156 K/MM3 (134-434); RBC 2.15 M/mm3 (4.00-5.60); RDW 22.6 % (11.9-15.9); WHITE BLOOD COUNT 4.5 K/mm3 (4.0-10.0)
[2018-09-14 09:08] LABS: ALBUMIN 2.6 g/dl (3.4-5.0); ALK PHOS 87 U/L (45-117); BILIRUBIN,TOTAL 0.6 mg/dL (0.2-1); MAGNESIUM 1.6 mg/dL (1.8-2.4); PHOSPHOROUS 3.9 mg/dL (2.5-4.9); SGOT/AST 11 U/L (15-37); SGPT/ALT 36 U/L (13-61); TOT PROT 5.2 g/dl (6.4-8.2)
--- NOTE | 2018-09-14 09:42 | PN ---
Physical Exam: SUBJECTIVE: Patient seen and examined at the bedside. Breathing has improved per patient. Denies chest pain or shortness of breath. OBJECTIVE: PVCs on cardiac technician Vital Signs Period Temp Pulse Resp BP Sys/Stoner Pulse Ox Last 24 Hr 97.2 F-99 F 68-81 18-20 100-129/50-83 95 GENERAL: Awake, alert, and fully oriented, in no acute distress. HEAD: Normal with no signs of trauma. EYES: extraocular movements intact, sclera anicteric, conjunctiva clear. No lid lag. EARS, NOSE, THROAT: moist mucus membranes, nares patent, oropharynx clear without exudates NECK: Normal range of motion, supple without lymphadenopathy, JVD, or masses. LUNGS: diminished but mostly clear to auscultation HEART: Regular rate and rhythm, normal S1 and S2 without murmur, rub or gallop. ABDOMEN: Protuberant, soft, nontender, normoactive bowel sounds, no guarding, no rebound, no masses. No hepatomegaly or splenomegaly. MUSCULOSKELETAL: Normal range of motion at all joints. No bony deformities or tenderness. No CVA tenderness. UPPER EXTREMITIES: No peripheral edema. LOWER EXTREMITIES: Left BKA (has prosthesis), right lwr ext non pitting edema. NEUROLOGICAL: No facial droop, tongue midline, normal speech PSYCHIATRIC: Cooperative. Good eye contact. Appropriate mood and affect. SKIN: Warm, dry, normal turgor, no rashes or lesions noted, normal capillary refill. Laboratory Results - last 24 hr 09/13/18 09/13/18 09/13/18 00:01 05:30 11:01 WBC 4.8 RBC 2.32 L Hgb 7.9 L Hct 23.9 L MCV 103.3 H MCH 34.0 H MCHC 32.9 RDW 23.3 H Plt Count 160 MPV 10.7 Absolute Neuts (auto) 2.5 Neutrophils % 50.7 Neutrophils % (Manual) 56.0 52.1 Band Neutrophils % 2.0 2.1 Lymphocytes % 15.6 D Lymphocytes % (Manual) 15.0 18.1 D Monocytes % 32.7 H Monocytes % (Manual) 27 H 26 H Eosinophils % 0.4 D Eosinophils % (Manual) 0.0 0.0 Basophils % 0.6 Basophils % (Manual) 0.0 0.0 Myelocytes % (Man) 0 D 1 D Promyelocytes % (Man) 0 0 Blast Cells % (Manual) 0 0 Nucleated RBC % 1 H Metamyelocytes 0 D 0 Hypochromia 0 1+ Platelet Estimate Normal Decreased Polychromasia 0 0 Poikilocytosis 0 0 Anisocytosis 1+ 1+ Microcytosis 0 1+ Macrocytosis 1+ 1+ Target Cells 1+ Ovalocytes 1+ 1+ Schistocytes 1+ 1+ Sodium Potassium Chloride Carbon Dioxide Anion Gap BUN Creatinine Creat Clearance w eGFR POC Glucometer 256 Random Glucose Calcium Phosphorus Magnesium Total Bilirubin AST ALT Alkaline Phosphatase Total Protein Albumin 09/13/18 09/13/18 09/14/18 16:09 23:36 05:13 WBC RBC Hgb Hct MCV MCH MCHC RDW Plt Count MPV Absolute Neuts (auto) Neutrophils % Neutrophils % (Manual) Band Neutrophils % Lymphocytes % Lymphocytes % (Manual) Monocytes % Monocytes % (Manual) Eosinophils % Eosinophils % (Manual) Basophils % Basophils % (Manual) Myelocytes % (Man) Promyelocytes % (Man) Blast Cells % (Manual) Nucleated RBC % Metamyelocytes Hypochromia Platelet Estimate Polychromasia Poikilocytosis Anisocytosis Microcytosis Macrocytosis Target Cells Ovalocytes Schistocytes Sodium Potassium Chloride Carbon Dioxide Anion Gap BUN Creatinine Creat Clearance w eGFR POC Glucometer 158 235 148 Random Glucose Calcium Phosphorus Magnesium Total Bilirubin AST ALT Alkaline Phosphatase Total Protein Albumin 09/14/18 09/14/18 05:30 05:30 WBC 4.5 RBC 2.15 L Hgb 7.2 L Hct 22.2 L MCV 103.6 H MCH 33.7 MCHC 32.5 RDW 22.6 H Plt Count 156 MPV 10.6 Absolute Neuts (auto) 2.3 Neutrophils % 52.1 Neutrophils % (Manual) Band Neutrophils % Lymphocytes % 15.3 Lymphocytes % (Manual) Monocytes % 31.3 H Monocytes % (Manual) Eosinophils % 0.7 Eosinophils % (Manual) Basophils % 0.6 Basophils % (Manual) Myelocytes % (Man) Promyelocytes % (Man) Blast Cells % (Manual) Nucleated RBC % 0 Metamyelocytes Hypochromia Platelet Estimate Polychromasia Poikilocytosis Anisocytosis Microcytosis Macrocytosis Target Cells Ovalocytes Schistocytes Sodium 142 Potassium 3.9 Chloride 109 H Carbon Dioxide 27 Anion Gap 6 L BUN 66 H Creatinine 2.2 H Creat Clearance w eGFR 30.00 POC Glucometer Random Glucose 147 H Calcium 7.5 L Phosphorus 3.9 Magnesium 1.6 L Total Bilirubin 0.6 AST 11 L ALT 36 Alkaline Phosphatase 87 Total Protein 5.2 L Albumin 2.6 L Active Medications Generic Name Dose Route Start Last Admin Trade Name [place] PRN Reason Stop Dose Admin Albuterol/Ipratropium 1 amp 09/11/18 16:00 09/14/18 07:03 Duoneb - NEB 1 amp RQID [facility] Administration Aspirin 81 mg 09/12/18 10:00 09/13/18 09:54 Ecotrin - PO 81 mg DAILY [facility] Administration Atorvastatin Calcium 40 mg 09/11/18 22:00 09/13/18 23:11 Lipitor - PO 40 mg HS [facility] Administration Budesonide/Formoterol Fumarate 1 puff 09/11/18 22:00 09/13/18 23:12 Symbicort 160/4.5mcg - IH 1 puff BID [facility] Administration Cyanocobalamin 1,000 mcg 09/12/18 10:00 09/13/18 09:55 Vitamin B12 - PO 1,000 mcg DAILY [facility] Administration Furosemide 80 mg 09/13/18 14:00 09/14/18 06:16 Lasix Injection - IVPUSH 80 mg BID@0600,1400 [facility] Administration Gabapentin 100 mg 09/11/18 22:00 09/14/18 06:16 Neurontin - PO 100 mg TID [facility] Administration Hydralazine HCl 25 mg 09/13/18 14:00 09/13/18 23:11 Apresoline - PO 25 mg BID [facility] Administration Insulin Aspart 1 vial 09/11/18 16:30 09/14/18 06:09 Novolog Vial Sliding Scale - SQ Not Given ACHS [facility] Protocol Isosorbide Mononitrate 30 mg 09/14/18 10:00 Imdur - PO DAILY [facility] Levothyroxine Sodium 25 mcg 09/12/18 07:00 09/14/18 06:16 Synthroid - PO 25 mcg DAILY@0700 [facility] Administration Metoprolol Succinate 100 mg 09/12/18 10:00 09/13/18 09:55 Toprol Xl - PO 100 mg DAILY [facility] Administration Multivitamins/Minerals/Vitamin C 1 tab 09/12/18 10:00 09/13/18 09:54 Tab-A-Vit - PO 1 tab DAILY [facility] Administration Non-Formulary Medication 2 puff 09/11/18 22:00 Tiotropium Br/Olodaterol Hcl [Stiolto Respimat Inhal [place]] IH BID [facility] Pantoprazole Sodium 40 mg 09/12/18 10:00 09/13/18 09:54 Protonix - PO 40 mg DAILY [facility] Administration Polyethylene Glycol 17 gm 09/12/18 10:00 09/13/18 09:54 Miralax (For Daily Use) - PO Not Given DAILY [facility] Senna 1 tab 09/11/18 22:00 09/13/18 23:12 Senna - PO Not Given HS [facility] Tamsulosin HCl 0.4 mg 09/12/18 08:30 09/14/18 08:57 Flomax - PO 0.4 mg DAILY@0830 [facility] Administration Tramadol HCl 50 mg 09/11/18 18:01 Ultram - PO Q12H PRN PAIN LEVEL 4 - 6 imaging: Echocardiogram 05/30/2018 showed normal LV size, wall motion and systolic function. Normal RV. Borderline LA dilatation. Mild to moderate MR. No pericardial effusion. Echocardiogram 07/14/18 shows LV moderately dilated. LV systolic fx is mildly reduced. mild global hypokinesis of the LV. RV is normal in size and fx. moderate mitral regurg. mild to mod valvular aortic stenosis. Echo 09/12/2018: Dilated lv with segmental wall motion abnormality. reduced lv systolic fx. moderate to severe mitral regurg. right vent. is normal in sz and fx. mild pulmonary hypertension. ascites present. ASSESSMENT/PLAN: Patient is a 67 year old male with a past medical history of larngeal cancer s/ p RT, chronic systolic CHF, BPH, chronic respiratory failure sec to COPD/CHF on 2L O2 via [place] (recently discharged 09/05/18), active smoker, CKD 3, chronic anemia, hypertension, HLD, PAD s/p LBKA and hypothyroidism. He presents with increasing SOB worse over the past 3 days, exacerbated by exertion. Heme: Symptomatic anemia/anemia of chronic disease. S/p prbc transfusions, hmg/hct low stable. Would monitor daily. patient presented with shortness of breath on admission. now improved with oxygen therapy, duonebs and prbc transfusion. Continue Protonix daily hematology consulted Pulm: COPD On Symbicort 160/4.5mcg 1 inh PO BID Stiolto Respimat Inhal [place] 2 puff IH BID Nebs PRN Patient started on oxygen therapy on last admission at 3 liters bibasal infiltrates on chest xray Card: Acute on chronic diastolic/systolic failure Presents with BNP of 40k. Echo 05/30/18 shows normal LV size, echo 07/14/18 shoes lv mod. dilated. repeated echo on this admission shows Dilated lv with segmental wall motion abnormality. reduced lv systolic fx. Patient on Metoprolol. was previously on an bebeto which was stopped 2/2 to ckd cardiology following. Started on Lasix 80mg IV BID. Hypertension. chronic On Metoprolol succ. 100mg daily. Hydralazine BID Hld. chronic On Lipitor Psyche Current everyday smoker. Tabacco cessation discussed. refusing nicotine patch. Renal: MEENAKSHI on CKD BUN/Cr 66/2.7 -> 69/2.4 followed by envelope fold operator Dr. Haley. pt for a renal biopsy as outpatient On procrit On a renal diet. Onc: Lung nodule Also noted was a 9mm lung nodule seen on chest CT of 05/31/[address] Patient is following up at [facility] outpatient and had a recent pet scan with facility. He will continue to follow up outpatient. Endocrine: DM monitor bgms, started novolog ss [id number] 05/2018 6.0, hmg a1c 09/04/18 7.0. On SS Hypothyroidism Levothyroxine 25 mcg PO DAILY fen PO hydration adequate monitor electrolytes renal diet prophy heparin Visit type - Emergency Visit Emergency Visit: Yes ED Registration Date: 09/11/18 Care time: The patient presented to the Emergency Department on the above date and was hospitalized for further evaluation of their emergent condition. - New Patient This patient is new to me today: No - Critical Care Critical Care patient: No - Discharge Referral Referred to [facility] No
[2018-09-14 10:02] LABS: INR 1.16 (0.83-1.09); PROTHROMBIN TIME (PATIENT) 13.7 SEC (9.7-13.0)
[2018-09-14] MEDS: ASPIRIN COATED 81 MG TABLET.EC PO SCH (10:19)
[2018-09-14] MEDS: PANTOPRAZOLE 40 MG TABLET (FP) PO SCH (10:19)
[2018-09-14] MEDS: CYANOCOBALAMIN 1,000 MCG TABLET (FP) PO SCH (10:19)
--- NOTE | 2018-09-14 10:19 | PN ---
Progress Note, Physician History of Present Illness: SOB improved post transfusion and RLE swelling persists despite diuresis, denies bleed source. He sees Tello Manzano MD for cardiology [phone] - Current Medication List Current Medications: Active Medications Albuterol/Ipratropium (Duoneb -) 1 amp NEB RQID [facility] Last Admin: 09/14/18 07:03 Dose: 1 amp Aspirin (Ecotrin -) 81 mg PO DAILY [facility] Last Admin: 09/13/18 09:54 Dose: 81 mg Atorvastatin Calcium (Lipitor -) 40 mg PO HS [facility] Last Admin: 09/13/18 23:11 Dose: 40 mg Budesonide/Formoterol Fumarate (Symbicort 160/4.5mcg -) 1 puff IH BID [facility] Last Admin: 09/13/18 23:12 Dose: 1 puff Cyanocobalamin (Vitamin B12 -) 1,000 mcg PO DAILY [facility] Last Admin: 09/13/18 09:55 Dose: 1,000 mcg Furosemide (Lasix Injection -) 80 mg IVPUSH BID@0600,1400 [facility] Last Admin: 09/14/18 06:16 Dose: 80 mg Gabapentin (Neurontin -) 100 mg PO TID [facility] Last Admin: 09/14/18 06:16 Dose: 100 mg Hydralazine HCl (Apresoline -) 25 mg PO BID [facility] Last Admin: 09/13/18 23:11 Dose: 25 mg Insulin Aspart (Novolog Vial Sliding Scale -) 1 vial SQ ACHS [facility]; Protocol Last Admin: 09/14/18 06:09 Dose: Not Given Isosorbide Mononitrate (Imdur -) 30 mg PO DAILY [facility] Levothyroxine Sodium (Synthroid -) 25 mcg PO DAILY@0700 [facility] Last Admin: 09/14/18 06:16 Dose: 25 mcg Metoprolol Succinate (Toprol Xl -) 100 mg PO DAILY [facility] Last Admin: 09/13/18 09:55 Dose: 100 mg Multivitamins/Minerals/Vitamin C (Tab-A-Vit -) 1 tab PO DAILY [facility] Last Admin: 09/13/18 09:54 Dose: 1 tab Non-Formulary Medication (Tiotropium Br/Olodaterol Hcl [Stiolto Respimat Inhal [place]]) 2 puff IH BID [facility] Pantoprazole Sodium (Protonix -) 40 mg PO DAILY [facility] Last Admin: 12/25/18 09:54 Dose: 40 mg Polyethylene Glycol (Miralax (For Daily Use) -) 17 gm PO DAILY [facility] Last Admin: 09/13/18 09:54 Dose: Not Given Senna (Senna -) 1 tab PO HS [facility] Last Admin: 09/13/18 23:12 Dose: Not Given Tamsulosin HCl (Flomax -) 0.4 mg PO DAILY@0830 [facility] Last Admin: 09/14/18 08:57 Dose: 0.4 mg Tramadol HCl (Ultram -) 50 mg PO Q12H PRN PRN Reason: PAIN LEVEL 4 - 6 - Objective Vital Signs: Vital Signs Temperature 98.2 F 09/14/18 10:18 Pulse Rate 72 09/14/18 10:18 Respiratory Rate 20 09/14/18 10:18 Blood Pressure 104/48 L 09/14/18 10:18 O2 Sat by Pulse Oximetry (%) 95 09/13/18 21:00 Constitutional: Yes: No Distress, Calm Neck: Yes: Supple Cardiovascular: Yes: Regular Rate and Rhythm, Murmur (2/6 SM) Respiratory: Yes: Regular, Diminished Gastrointestinal: Yes: Normal Bowel Sounds, Soft Extremities: Yes: Amputation (Left BKA) Edema: Yes Edema: RLE: 2+ Labs: CBC, BMP 09/14/18 05:30 09/14/18 05:30 INR, PTT INR 1.16 (0.83-1.09) H 09/14/18 05:30 Problem List - Problems (1) Nephrotic range proteinuria Code(s): R80.9 - PROTEINURIA, UNSPECIFIED (2) Heart failure Code(s): I50.9 - HEART FAILURE, UNSPECIFIED Qualifiers: Heart failure type: combined systolic and diastolic Heart failure chronicity: acute on chronic Qualified Code(s): I50.43 - Acute on chronic combined systolic (congestive) and diastolic (congestive) heart failure (3) CKD (chronic kidney disease) Code(s): N18.9 - CHRONIC KIDNEY DISEASE, UNSPECIFIED Qualifiers: Chronic kidney disease stage: stage 3 (moderate) Qualified Code(s): N18.3 - Chronic kidney disease, stage 3 (moderate) (4) Cardiomyopathy as manifestation of underlying disease Code(s): I43 - CARDIOMYOPATHY IN DISEASES CLASSIFIED ELSEWHERE (5) Hypothyroid Code(s): E03.9 - HYPOTHYROIDISM, UNSPECIFIED Qualifiers: Hypothyroidism type: unspecified Qualified Code(s): E03.9 - Hypothyroidism , unspecified Assessment/Plan Echocardiogram 05/30/2018 showed normal LV size, wall motion and systolic function. Normal RV. Borderline LA dilatation. Moderate with SADAF = 0.93cm2, PG = 33.3 mmHg, MG = 21.3 mmHg. Mild to moderate MR. No pericardial effusion. Echocardiogram 07/14/18 shows LV moderately dilated. LV systolic fx is mildly reduced. mild global hypokinesis of the LV. RV is normal in size and fx. moderate mitral regurg. mild to mod valvular aortic stenosis. EF-45-50%. Echocardiogram 09/12/2018: Dilated LV with moderate decreased LV fxn, mod- severe MR, normal RV size and fxn, mild pulm HTN RVSP 40 mmHg, ascites, mod AV sclerosis Chest CT 09/04/2018 Bilateral effusions with compressive ATX 1. BRAGG to AE mod-severe copd, active smoker 2. Acute on chronic diastolic/systolic failure 3. Anemia post transfusion, ? MDS. 4. CKD with proteinuria - nephrotic 5. HTN 6. Type 2 DM 7. hypothyroidism 8. HLD 9. high transaminases from hepatic congestion?- improving 10. 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 IV diuresis with monitor diuretic response renal fxn and electrolyes, declines wrap leg 2. Continue bronchodilators, sterods, O2 as needed, completed empiric abx course 3. JACKIE for anemia, IV Venofer, transfuse to maintain Hgb>8.0 4. Continue ASA 81 qd, Lipitor 40 qhs, Toprol XL 100 qd, not on CATHY-I/ARB due to hyperkalemia, started BiDil as hemodynamics tolerate 5. Eventual renal biopsy in future
[2018-09-14] MEDS: ISOSORBIDE MONONITRATE 30 MG TAB.SR.24H (FP) PO SCH (10:20)
[2018-09-14] MEDS: POLYETHYLENE GLYCOL 3350 119 GM BTL PO SCH (10:20)
[2018-09-14] MEDS: hydrALAZINE HCL 25 MG TABLET (FP) PO SCH ×2 (10:20→21:39)
[2018-09-14] MEDS: MULTIVITAMINS (DAILY MVI) TABLET (FP) PO SCH (10:20)
[2018-09-14] MEDS: BUDESONIDE/FORMETEROL FUMARATE 160/4.5 mcg INHALER IH SCH ×2 (10:21→21:43)
[2018-09-14 11:00] LABS: ANISOCYTOSIS 1+; MACROCYTOSIS 1+; OVALOCYTE 1+; TARGET CELLS 1+
[2018-09-14 11:14] LABS: PLATELET ESTIMATE ADEQUATE
--- NOTE | 2018-09-14 13:12 | CON.ID ---
Consult Consult Specialty:: infectious diseases Reason for Consultation:: r/o pna,sob - History of Present Illness Chief Complaint: sob,swelling of the leg History of Present Illness: this patient well known to me from last admission who wanted to go home and did decide to go home again coming back to the hospital with similar complaints of sob patient now also comes with swelling of his legs says breathing had detoriated patient started on diuretics as his work up also showed high bnp patient states that when he gets neb he feels much better it seems patient was given vanco and patient became sob during that time and vanco was stopped - History Source History Provided By: Patient Limitations to Obtaining History: No Limitations - Past Medical History Cardio/Vascular: Yes: HTN Pulmonary: Yes: COPD Renal/: Yes: Renal Inusuff, Other (hyperkalemia) Endocrine: Yes: Diabetes Mellitus, Hypothyroidism - Alcohol/Substance Use Hx Alcohol Use: No History of Substance Use: reports: None - Smoking History Smoking history: Current every day smoker Have you smoked in the past 12 months: Yes Aproximately how many cigarettes per day: 3 - Social History Usual Living Arrangement: Assisted Living History of Recent Travel: No Home Medications - Allergies Allergies/Adverse Reactions: Allergies Allergy/AdvReac Type Severity Reaction Status Date / Time No Known Allergies Allergy Verified 09/11/18 08:46 - Home Medications Home Medications: Ambulatory Orders Cyanocobalamin [Vitamin B12 -] 1,000 mcg PO DAILY 07/13/18 Epoetin Blue [Procrit -] 20,000 unit IJ WEEKLY 07/13/18 Gabapentin [Neurontin -] 100 mg PO Q8H PRN 07/13/18 Levothyroxine [Synthroid -] 25 mcg PO DAILY 07/13/18 Metoprolol Succinate 100 mg PO DAILY 07/13/18 Pantoprazole Sodium 40 mg PO DAILY 07/13/18 Polyethylene Glycol 3350 [Laxaclear] 17 gm PO DAILY 07/13/18 Sennosides [Senna -] 1 tab PO HS 07/13/18 Silver Sulfadiazine 1% Top Cr [Silvadene -] 1 applic TP DAILY 07/13/18 Tamsulosin HCl [Flomax -] 0.4 mg PO DAILY 07/13/18 Tiotropium Br/Olodaterol HCl [Stiolto Respimat Inhal [place]] 2 puff IH BID Budesonide/Formeterol Fumarate [SYMBICORT 160/4.5mcg -] 1 inh PO BID 09/01/18 Multivitamins [Multivit ([facility] Formulary)] 1 tab PO DAILY 09/01/18 Tramadol HCl 50 mg PO BID PRN 09/01/18 Alcohol Antiseptic Pads [Alcohol Prep Pads] 1 each TP ACHS #1 box 09/04/18 Lancets [Lancets Thin] 1 each MC AC #1 box 09/04/18 Miscellaneous Medical Supply [Glucometer Device] 1 each SQ ASDIR #1 kit Miscellaneous Medical Supply [Glucometer Test Strips #100] 1 each SQ ASDIR #1 box 09/04/18 Albuterol 0.083% Nebulizer Najma [Ventolin 0.083% Nebulizer Soln -] 1 amp NEB QID #1 amp 09/05/18 Albuterol Sulfate Inhaler - [Ventolin Hfa Inhaler -] 1 puff IH Q6H #1 inhaler Sitagliptin Phosphate [Januvia -] 25 mg PO DAILY@0700 #90 tab 09/05/18 Atorvastatin Ca [Lipitor] 40 mg PO HS 09/11/18 Review of Systems - Review of Systems Constitutional: reports: No Symptoms Eyes: reports: No Symptoms HENT: reports: No Symptoms Neck: reports: No Symptoms Cardiovascular: reports: Edema, Shortness of Breath Respiratory: reports: SOB, SOB on Exertion Gastrointestinal: reports: No Symptoms Genitourinary: reports: No Symptoms Musculoskeletal: reports: No Symptoms Integumentary: reports: No Symptoms Neurological: reports: No Symptoms Endocrine: reports: No Symptoms Hematology/Lymphatic: reports: No Symptoms Psychiatric: reports: No Symptoms Physical Exam Vital Signs: Vital Signs Temperature 98.2 F 09/14/18 10:18 Pulse Rate 72 09/14/18 10:18 Respiratory Rate 20 09/14/18 10:18 Blood Pressure 104/48 L 09/14/18 10:18 O2 Sat by Pulse Oximetry (%) 96 09/14/18 09:00 Constitutional: Yes: Mild Distress, Thin Eyes: Yes: Conjunctiva Clear Neck: Yes: Supple, Trachea Midline Cardiovascular: Yes: Regular Rate and Rhythm Respiratory: Yes: Regular, CTA Bilaterally Gastrointestinal: Yes: Normal Bowel Sounds, Soft Musculoskeletal: Yes: WNL Extremities: Yes: Other (amputation) Edema: RLE: 2+ Neurological: Yes: Alert, Oriented Psychiatric: Yes: Alert, Oriented Labs: CBC, BMP 09/14/18 05:30 09/14/18 05:30 Imaging - Results Chest X-ray: Report Reviewed, Image Reviewed Ultrasound: Report Reviewed, Image Reviewed Assessment/Plan Problem List - Problems (1) Nephrotic range proteinuria Code(s): R80.9 - PROTEINURIA, UNSPECIFIED (2) Heart failure Code(s): I50.9 - HEART FAILURE, UNSPECIFIED Qualifiers: Heart failure type: combined systolic and diastolic Heart failure chronicity: acute on chronic Qualified Code(s): I50.43 - Acute on chronic combined systolic (congestive) and diastolic (congestive) heart failure (3) CKD (chronic kidney disease) Code(s): N18.9 - CHRONIC KIDNEY DISEASE, UNSPECIFIED Qualifiers: Chronic kidney disease stage: stage 3 (moderate) Qualified Code(s): N18.3 - Chronic kidney disease, stage 3 (moderate) (4) Cardiomyopathy as manifestation of underlying disease Code(s): I43 - CARDIOMYOPATHY IN DISEASES CLASSIFIED ELSEWHERE (5) Hypothyroid Code(s): E03.9 - HYPOTHYROIDISM, UNSPECIFIED Qualifiers: Hypothyroidism type: unspecified Qualified Code(s): E03.9 - Hypothyroidism , unspecified plan looks more like a failure picture will not start abx at this moment duo nebs diuresis rest as per the team
--- NOTE | 2018-09-14 14:39 | PN ---
Progress Note, Physician History of Present Illness: Pt seen and examined at bedside. He feels that his breathing is improved. He still has lower ext edema. - Current Medication List Current Medications: Active Medications Albuterol/Ipratropium (Duoneb -) 1 amp NEB RQID [facility] Last Admin: 09/14/18 11:29 Dose: 1 amp Aspirin (Ecotrin -) 81 mg PO DAILY [facility] Last Admin: 09/14/18 10:19 Dose: 81 mg Atorvastatin Calcium (Lipitor -) 40 mg PO HS [facility] Last Admin: 09/13/18 23:11 Dose: 40 mg Budesonide/Formoterol Fumarate (Symbicort 160/4.5mcg -) 1 puff IH BID [facility] Last Admin: 09/14/18 10:21 Dose: 1 puff Cyanocobalamin (Vitamin B12 -) 1,000 mcg PO DAILY [facility] Last Admin: 09/14/18 10:19 Dose: 1,000 mcg Furosemide (Lasix Injection -) 80 mg IVPUSH BID@0600,1400 [facility] Last Admin: 09/14/18 13:58 Dose: 80 mg Gabapentin (Neurontin -) 100 mg PO TID [facility] Last Admin: 09/14/18 13:59 Dose: 100 mg Hydralazine HCl (Apresoline -) 25 mg PO BID [facility] Last Admin: 09/14/18 10:20 Dose: 25 mg Insulin Aspart (Novolog Vial Sliding Scale -) 1 vial SQ ACHS [facility]; Protocol Last Admin: 09/14/18 11:22 Dose: 4 units Isosorbide Mononitrate (Imdur -) 30 mg PO DAILY [facility] Last Admin: 09/14/18 10:20 Dose: Not Given Levothyroxine Sodium (Synthroid -) 25 mcg PO DAILY@0700 [facility] Last Admin: 09/14/18 06:16 Dose: 25 mcg Metoprolol Succinate (Toprol Xl -) 100 mg PO DAILY [facility] Last Admin: 09/14/18 10:19 Dose: 100 mg Multivitamins/Minerals/Vitamin C (Tab-A-Vit -) 1 tab PO DAILY [facility] Last Admin: 09/14/18 10:20 Dose: 1 tab Non-Formulary Medication (Tiotropium Br/Olodaterol Hcl [Stiolto Respimat Inhal [place]]) 2 puff IH BID [facility] Pantoprazole Sodium (Protonix -) 40 mg PO DAILY [facility] Last Admin: 09/14/18 10:19 Dose: 40 mg Polyethylene Glycol (Miralax (For Daily Use) -) 17 gm PO DAILY [facility] Last Admin: 09/14/18 10:20 Dose: Not Given Senna (Senna -) 1 tab PO HS [facility] Last Admin: 09/13/18 23:12 Dose: Not Given Tamsulosin HCl (Flomax -) 0.4 mg PO DAILY@0830 [facility] Last Admin: 09/14/18 08:57 Dose: 0.4 mg Tramadol HCl (Ultram -) 50 mg PO Q12H PRN PRN Reason: PAIN LEVEL 4 - 6 - Objective Vital Signs: Vital Signs Temperature 98.2 F 09/14/18 10:18 Pulse Rate 72 09/14/18 10:18 Respiratory Rate 20 09/14/18 10:18 Blood Pressure 104/48 L 09/14/18 10:18 O2 Sat by Pulse Oximetry (%) 96 09/14/18 09:00 Constitutional: Yes: Calm Eyes: Yes: Conjunctiva Clear HENT: Yes: Atraumatic Neck: Yes: Supple Cardiovascular: Yes: S1, S2 Respiratory: Yes: CTA Bilaterally, On Nasal O2 Gastrointestinal: Yes: Soft Genitourinary: Yes: WNL Musculoskeletal: Yes: Other (left bka) Edema: Yes Edema: RLE: 1+ Neurological: Yes: Oriented Psychiatric: Yes: Oriented Labs: CBC, BMP 09/14/18 05:30 09/14/18 05:30 INR, PTT INR 1.16 (0.83-1.09) H 09/14/18 05:30 Problem List - Problems (1) COPD exacerbation Code(s): J44.1 - CHRONIC OBSTRUCTIVE PULMONARY DISEASE W (ACUTE) EXACERBATION (2) Heart failure Code(s): I50.9 - HEART FAILURE, UNSPECIFIED Qualifiers: Heart failure type: combined systolic and diastolic Heart failure chronicity: acute on chronic Qualified Code(s): I50.43 - Acute on chronic combined systolic (congestive) and diastolic (congestive) heart failure (3) Nephrotic range proteinuria Code(s): R80.9 - PROTEINURIA, UNSPECIFIED (4) CKD (chronic kidney disease) Code(s): N18.9 - CHRONIC KIDNEY DISEASE, UNSPECIFIED Qualifiers: Chronic kidney disease stage: stage 3 (moderate) Qualified Code(s): N18.3 - Chronic kidney disease, stage 3 (moderate) Assessment/Plan Current Medications Generic Name Dose Route Start Last Admin Trade Name Brenton PRN Reason Stop Dose Admin Albuterol/Ipratropium 1 amp 09/11/18 16:00 09/14/18 11:29 Duoneb - NEB 1 amp RQID [facility] Administration Aspirin 81 mg 09/12/18 10:00 09/14/18 10:19 Ecotrin - PO 81 mg DAILY [facility] Administration Atorvastatin Calcium 40 mg 09/11/18 22:00 09/13/18 23:11 Lipitor - PO 40 mg HS [facility] Administration Budesonide/Formoterol Fumarate 1 puff 09/11/18 22:00 09/14/18 10:21 Symbicort 160/4.5mcg - IH 1 puff BID [facility] Administration Cyanocobalamin 1,000 mcg 09/12/18 10:00 09/14/18 10:19 Vitamin B12 - PO 1,000 mcg DAILY [facility] Administration Furosemide 80 mg 09/13/18 14:00 09/14/18 13:58 Lasix Injection - IVPUSH 80 mg BID@0600,1400 [facility] Administration Gabapentin 100 mg 09/11/18 22:00 09/14/18 13:59 Neurontin - PO 100 mg TID [facility] Administration Hydralazine HCl 25 mg 09/13/18 14:00 09/14/18 10:20 Apresoline - PO 25 mg BID [facility] Administration Insulin Aspart 1 vial 09/11/18 16:30 09/14/18 11:22 Novolog Vial Sliding Scale - SQ 4 units ACHS [facility] Administration Protocol Isosorbide Mononitrate 30 mg 09/14/18 10:00 09/14/18 10:20 Imdur - PO Not Given DAILY [facility] Levothyroxine Sodium 25 mcg 09/12/18 07:00 09/14/18 06:16 Synthroid - PO 25 mcg DAILY@0700 [facility] Administration Metoprolol Succinate 100 mg 09/12/18 10:00 09/14/18 10:19 Toprol Xl - PO 100 mg DAILY [facility] Administration Multivitamins/Minerals/Vitamin C 1 tab 09/12/18 10:00 09/14/18 10:20 Tab-A-Vit - PO 1 tab DAILY [facility] Administration Non-Formulary Medication 2 puff 09/11/18 22:00 Tiotropium Br/Olodaterol Hcl [Stiolto Respimat Inhal [place]] IH BID [facility] Pantoprazole Sodium 40 mg 09/12/18 10:00 09/14/18 10:19 Protonix - PO 40 mg DAILY [facility] Administration Polyethylene Glycol 17 gm 09/12/18 10:00 09/14/18 10:20 Miralax (For Daily Use) - PO Not Given DAILY [facility] Senna 1 tab 09/11/18 22:00 09/13/18 23:12 Senna - PO Not Given HS [facility] Tamsulosin HCl 0.4 mg 09/12/18 08:30 09/14/18 08:57 Flomax - PO 0.4 mg DAILY@0830 [facility] Administration Tramadol HCl 50 mg 09/11/18 18:01 Ultram - PO Q12H PRN PAIN LEVEL 4 - 6 Laboratory Tests 09/13/18 05:30 Free [place] LC, Quant Pending Free Lambda LC, Quant Pending Free [place]/Lambda Ratio Pending Impression 1. CKD 2. anemia 3. history of hyperkalemia 4. HTN 5. DM 6. hypothyroidism 7. HLD 8. copd 9. proteinuria - nephrotic 10. active smoker 11. 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
[2018-09-14 18:11] LABS: FREE KAPPA,SERUM 52.1 mg/L (3.3-19.4)
[2018-09-14] MEDS: ATORVASTATIN CA 40 MG TABLET (FP) PO SCH (21:39)
[2018-09-14] MEDS: SENNOSIDES 8.6MG TABLET (FP) PO SCH (21:42)
[2018-09-14 22:12] LABS: RATIO URIN PROTEIN/URIN CREAT 2.45 MG/DL
[2018-09-15] MEDS: LEVOTHYROXINE NA 25 MCG TABLET (FP) PO SCH (06:17)
[2018-09-15] MEDS: GABAPENTIN 100 MG CAPSULE (FP) PO SCH ×3 (06:17→21:51)
[2018-09-15] MEDS: FUROSEMIDE 40 MG/4 ML INJECTABLE VIAL IVPUSH SCH ×2 (06:18→14:49)
[2018-09-15] MEDS: INSULIN SLIDING SCALE (NOVOLOG) 1 VIAL SQ SCH ×4 (06:22→21:48)
[2018-09-15] MEDS: ALBUTEROL SO4 2.5/IPRATROPIUM 0.5 INH SOL 3 ML VIAL.NEB. NEB SCH ×4 (07:30→20:06)
[2018-09-15 09:19] LABS: EOS % 0.7 % (0-4.5); HEMATOCRIT 24.2 % (35.4-49); HEMOGLOBIN 7.9 GM/dL (11.7-16.9); LYMPH % 11.6 % (8-40); MCH 34.2 pg (25.7-33.7); MCHC 32.8 g/dl (32.0-35.9); MEAN CELL VOLUME 104.1 fl (80-96); MEAN PLT VOLUME 10.5 fl (7.5-11.1); MONO % 25.8 % (3.8-10.2); NEUT % 60.9 % (42.8-82.8); PLATELET COUNT 127 K/MM3 (134-434); RBC 2.32 M/mm3 (4.00-5.60); RDW 22.9 % (11.9-15.9); WHITE BLOOD COUNT 5.3 K/mm3 (4.0-10.0)
[2018-09-15 09:48] LABS: ALBUMIN 2.6 g/dl (3.4-5.0); ALK PHOS 81 U/L (45-117); ANION GAP 4 MMOL/L (8-16); BILIRUBIN,TOTAL 0.7 mg/dL (0.2-1); BLOOD UREA NITROGEN 57 mg/dL (7-18); CALCIUM 7.7 mg/dL (8.5-10.1); CHLORIDE 106 mmol/L (98-107); CO2 31 mmol/L (21-32); CREATININE 2.1 mg/dL (0.55-1.3); GLUCOSE,RANDOM 143 mg/dL (74-106); MAGNESIUM 1.4 mg/dL (1.8-2.4); POTASSIUM 4.6 mmol/L (3.5-5.1); SGOT/AST 33 U/L (15-37); SGPT/ALT 37 U/L (13-61); SODIUM 141 mmol/L (136-145); TOT PROT 5.8 g/dl (6.4-8.2)
[2018-09-15] MEDS ORDERED: MAGNESIUM 1GM/D5W - 1 GM/100 ML IVPB IVPB ONE (10:32)
--- NOTE | 2018-09-15 10:43 | PN ---
Progress Note, Physician History of Present Illness: SOB improves after nebs, anemic post transfusion and RLE swelling persists despite diuresis, denies bleed source. He sees Tello Manzano MD for cardiology [phone] - Current Medication List Current Medications: Active Medications Albuterol/Ipratropium (Duoneb -) 1 amp NEB RQID [facility] Last Admin: 09/15/18 07:30 Dose: 1 amp Aspirin (Ecotrin -) 81 mg PO DAILY [facility] Last Admin: 09/14/18 10:19 Dose: 81 mg Atorvastatin Calcium (Lipitor -) 40 mg PO HS [facility] Last Admin: 09/14/18 21:39 Dose: 40 mg Budesonide/Formoterol Fumarate (Symbicort 160/4.5mcg -) 1 puff IH BID [facility] Last Admin: 09/14/18 21:43 Dose: 1 puff Cyanocobalamin (Vitamin B12 -) 1,000 mcg PO DAILY [facility] Last Admin: 09/14/18 10:19 Dose: 1,000 mcg Furosemide (Lasix Injection -) 80 mg IVPUSH BID@0600,1400 [facility] Last Admin: 09/15/18 06:18 Dose: 80 mg Gabapentin (Neurontin -) 100 mg PO TID [facility] Last Admin: 09/15/18 06:17 Dose: 100 mg Hydralazine HCl (Apresoline -) 25 mg PO BID [facility] Last Admin: 09/14/18 21:39 Dose: 25 mg Magnesium Sulfate/Dextrose 2 (gm/ Miscellaneous) 200 mls @ 100 mls/hr IVPB ONCE ONE Stop: 09/15/18 12:31 Insulin Aspart (Novolog Vial Sliding Scale -) 1 vial SQ ACHS [facility]; Protocol Last Admin: 09/15/18 06:22 Dose: Not Given Isosorbide Mononitrate (Imdur -) 30 mg PO DAILY [facility] Last Admin: 09/14/18 10:20 Dose: Not Given Levothyroxine Sodium (Synthroid -) 25 mcg PO DAILY@0700 [facility] Last Admin: 09/15/18 06:17 Dose: 25 mcg Metoprolol Succinate (Toprol Xl -) 100 mg PO DAILY [facility] Last Admin: 09/14/18 10:19 Dose: 100 mg Multivitamins/Minerals/Vitamin C (Tab-A-Vit -) 1 tab PO DAILY [facility] Last Admin: 09/14/18 10:20 Dose: 1 tab Non-Formulary Medication (Tiotropium Br/Olodaterol Hcl [Stiolto Respimat Inhal [place]]) 2 puff IH BID [facility] Pantoprazole Sodium (Protonix -) 40 mg PO DAILY [facility] Last Admin: 09/14/18 10:19 Dose: 40 mg Polyethylene Glycol (Miralax (For Daily Use) -) 17 gm PO DAILY [facility] Last Admin: 09/14/18 10:20 Dose: Not Given Senna (Senna -) 1 tab PO HS [facility] Last Admin: 09/14/18 21:42 Dose: Not Given Tamsulosin HCl (Flomax -) 0.4 mg PO DAILY@0830 [facility] Last Admin: 09/14/18 08:57 Dose: 0.4 mg - Objective Vital Signs: Vital Signs Temperature 98.2 F 09/15/18 05:56 Pulse Rate 77 09/15/18 05:56 Respiratory Rate 21 H 09/15/18 05:56 Blood Pressure 116/62 09/15/18 05:56 O2 Sat by Pulse Oximetry (%) 95 09/14/18 21:00 Constitutional: Yes: No Distress, Calm, Thin Neck: Yes: Supple Cardiovascular: Yes: Regular Rate and Rhythm Respiratory: Yes: Regular, Diminished Gastrointestinal: Yes: Normal Bowel Sounds, Soft Extremities: Yes: Amputation (Left BKA) Edema: Yes Edema: RLE: 1+ Labs: CBC, BMP 09/15/18 08:30 09/15/18 08:30 INR, PTT INR 1.16 (0.83-1.09) H 09/14/18 05:30 - ....Imaging EKG: Report Reviewed (Tele: NSR) Problem List - Problems (1) Nephrotic range proteinuria Code(s): R80.9 - PROTEINURIA, UNSPECIFIED (2) Heart failure Code(s): I50.9 - HEART FAILURE, UNSPECIFIED Qualifiers: Heart failure type: combined systolic and diastolic Heart failure chronicity: acute on chronic Qualified Code(s): I50.43 - Acute on chronic combined systolic (congestive) and diastolic (congestive) heart failure (3) CKD (chronic kidney disease) Code(s): N18.9 - CHRONIC KIDNEY DISEASE, UNSPECIFIED Qualifiers: Chronic kidney disease stage: stage 3 (moderate) Qualified Code(s): N18.3 - Chronic kidney disease, stage 3 (moderate) (4) Cardiomyopathy as manifestation of underlying disease Code(s): I43 - CARDIOMYOPATHY IN DISEASES CLASSIFIED ELSEWHERE (5) Hypothyroid Code(s): E03.9 - HYPOTHYROIDISM, UNSPECIFIED Qualifiers: Hypothyroidism type: unspecified Qualified Code(s): E03.9 - Hypothyroidism , unspecified (6) COPD exacerbation Code(s): J44.1 - CHRONIC OBSTRUCTIVE PULMONARY DISEASE W (ACUTE) EXACERBATION Assessment/Plan Echocardiogram 05/30/2018 showed normal LV size, wall motion and systolic function. Normal RV. Borderline LA dilatation. Moderate with SADAF = 0.93cm2, PG = 33.3 mmHg, MG = 21.3 mmHg. Mild to moderate MR. No pericardial effusion. Echocardiogram 07/14/18 shows LV moderately dilated. LV systolic fx is mildly reduced. mild global hypokinesis of the LV. RV is normal in size and fx. moderate mitral regurg. mild to mod valvular aortic stenosis. EF-45-50%. Echocardiogram 09/12/2018: Dilated LV with moderate decreased LV fxn, mod- severe MR, normal RV size and fxn, mild pulm HTN RVSP 40 mmHg, ascites, mod AV sclerosis Chest CT 09/04/2018 Bilateral effusions with compressive ATX 1. BRAGG to AE mod-severe copd, active smoker 2. Acute on chronic diastolic/systolic failure 3. Anemia post transfusion, ? MDS vs multiple myeloma 4. CKD with proteinuria - nephrotic and h/o hyperkalemia 5. HTN 6. Type 2 DM 7. hypothyroidism 8. HLD 9. high transaminases from hepatic congestion?- improving 10. 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 Decrease IV diuresis with monitor diuretic response renal fxn and electrolyes , declines wrap leg 2. Continue bronchodilators, inhaled steroids, O2 as needed, completed empiric abx course 3. JACKIE for anemia, IV Venofer, transfuse to maintain Hgb>8.0 4. Continue ASA 81 qd, Lipitor 40 qhs, Toprol XL 100 qd, not on CATHY-I/ARB due to hyperkalemia, started BiDil as hemodynamics tolerate 5. Declines renal biopsy at this point
[2018-09-15] MEDS: TAMSULOSIN HCL 0.4 MG CAP PO SCH (10:47)
[2018-09-15] MEDS: CYANOCOBALAMIN 1,000 MCG TABLET (FP) PO SCH (10:47)
[2018-09-15] MEDS: ASPIRIN COATED 81 MG TABLET.EC PO SCH (10:48)
[2018-09-15] MEDS: hydrALAZINE HCL 25 MG TABLET (FP) PO SCH ×2 (10:48→21:52)
[2018-09-15] MEDS: PANTOPRAZOLE 40 MG TABLET (FP) PO SCH (10:48)
[2018-09-15] MEDS: MULTIVITAMINS (DAILY MVI) TABLET (FP) PO SCH (10:48)
[2018-09-15] MEDS: ISOSORBIDE MONONITRATE 30 MG TAB.SR.24H (FP) PO SCH (10:48)
[2018-09-15] MEDS: BUDESONIDE/FORMETEROL FUMARATE 160/4.5 mcg INHALER IH SCH ×2 (10:48→21:48)
[2018-09-15 11:11] LABS: ACANTHOCYTES 1+; ANISOCYTOSIS 2+; MACROCYTOSIS 1+; OVALOCYTE 1+; PLATELET ESTIMATE DECREASED; TEAR DROP CELLS 1+
--- NOTE | 2018-09-15 11:58 | PN ---
Progress Note, Physician History of Present Illness: stable doing well comfortable breathing better - Current Medication List Current Medications: Active Medications Albuterol/Ipratropium (Duoneb -) 1 amp NEB RQID [facility] Last Admin: 09/15/18 11:56 Dose: Not Given Aspirin (Ecotrin -) 81 mg PO DAILY [facility] Last Admin: 09/15/18 10:48 Dose: 81 mg Atorvastatin Calcium (Lipitor -) 40 mg PO HS [facility] Last Admin: 09/14/18 21:39 Dose: 40 mg Budesonide/Formoterol Fumarate (Symbicort 160/4.5mcg -) 1 puff IH BID [facility] Last Admin: 09/15/18 10:48 Dose: 1 puff Cyanocobalamin (Vitamin B12 -) 1,000 mcg PO DAILY [facility] Last Admin: 09/15/18 10:47 Dose: 1,000 mcg Furosemide (Lasix Injection -) 40 mg IVPUSH BID@0600,1400 [facility] Gabapentin (Neurontin -) 100 mg PO TID [facility] Last Admin: 09/15/18 06:17 Dose: 100 mg Hydralazine HCl (Apresoline -) 25 mg PO BID [facility] Last Admin: 09/15/18 10:48 Dose: 25 mg Insulin Aspart (Novolog Vial Sliding Scale -) 1 vial SQ ACHS [facility]; Protocol Last Admin: 09/15/18 06:22 Dose: Not Given Isosorbide Mononitrate (Imdur -) 30 mg PO DAILY [facility] Last Admin: 09/15/18 10:48 Dose: 30 mg Levothyroxine Sodium (Synthroid -) 25 mcg PO DAILY@0700 [facility] Last Admin: 09/15/18 06:17 Dose: 25 mcg Metoprolol Succinate (Toprol Xl -) 100 mg PO DAILY [facility] Last Admin: 09/15/18 10:47 Dose: 100 mg Multivitamins/Minerals/Vitamin C (Tab-A-Vit -) 1 tab PO DAILY [facility] Last Admin: 09/15/18 10:48 Dose: 1 tab Non-Formulary Medication (Tiotropium Br/Olodaterol Hcl [Stiolto Respimat Inhal [place]]) 2 puff IH BID [facility] Pantoprazole Sodium (Protonix -) 40 mg PO DAILY [facility] Last Admin: 09/15/18 10:48 Dose: 40 mg Polyethylene Glycol (Miralax (For Daily Use) -) 17 gm PO DAILY [facility] Last Admin: 09/14/18 10:20 Dose: Not Given Senna (Senna -) 1 tab PO HS [facility] Last Admin: 09/14/18 21:42 Dose: Not Given Tamsulosin HCl (Flomax -) 0.4 mg PO DAILY@0830 [facility] Last Admin: 09/15/18 10:47 Dose: 0.4 mg - Objective Vital Signs: Vital Signs Temperature 98.5 F 09/15/18 10:00 Pulse Rate 74 09/15/18 10:00 Respiratory Rate 18 09/15/18 10:00 Blood Pressure 128/62 09/15/18 10:00 O2 Sat by Pulse Oximetry (%) 95 09/15/18 09:00 Constitutional: Yes: Calm Cardiovascular: Yes: S1, S2 Respiratory: Yes: Regular, On Nasal O2 Gastrointestinal: Yes: Normal Bowel Sounds, Soft Musculoskeletal: Yes: WNL Extremities: Yes: Other Neurological: Yes: Alert, Oriented Psychiatric: Yes: Alert, Oriented Labs: CBC, BMP 09/15/18 08:30 09/15/18 08:30 INR, PTT INR 1.16 (0.83-1.09) H 09/14/18 05:30 Assessment/Plan Problem List - Problems (1) Nephrotic range proteinuria Code(s): R80.9 - PROTEINURIA, UNSPECIFIED (2) Heart failure Code(s): I50.9 - HEART FAILURE, UNSPECIFIED Qualifiers: Heart failure type: combined systolic and diastolic Heart failure chronicity: acute on chronic Qualified Code(s): I50.43 - Acute on chronic combined systolic (congestive) and diastolic (congestive) heart failure (3) CKD (chronic kidney disease) Code(s): N18.9 - CHRONIC KIDNEY DISEASE, UNSPECIFIED Qualifiers: Chronic kidney disease stage: stage 3 (moderate) Qualified Code(s): N18.3 - Chronic kidney disease, stage 3 (moderate) (4) Cardiomyopathy as manifestation of underlying disease Code(s): I43 - CARDIOMYOPATHY IN DISEASES CLASSIFIED ELSEWHERE (5) Hypothyroid Code(s): E03.9 - HYPOTHYROIDISM, UNSPECIFIED Qualifiers: Hypothyroidism type: unspecified Qualified Code(s): E03.9 - Hypothyroidism , unspecified plan continue current mgmt incentive jerad rest as per the team and cardio
[2018-09-15] MEDS ORDERED: PT OWN MED DRAWER 7, Y5N ONE (12:01)
--- NOTE | 2018-09-15 13:39 | PN ---
Progress Note, Physician History of Present Illness: Pt seen and examined at bedside. He is awake and alert. He is diuresing. He denies shortness of breath. - Current Medication List Current Medications: Active Medications Albuterol/Ipratropium (Duoneb -) 1 amp NEB RQID [facility] Last Admin: 09/15/18 11:56 Dose: Not Given Aspirin (Ecotrin -) 81 mg PO DAILY [facility] Last Admin: 09/15/18 10:48 Dose: 81 mg Atorvastatin Calcium (Lipitor -) 40 mg PO HS [facility] Last Admin: 09/14/18 21:39 Dose: 40 mg Budesonide/Formoterol Fumarate (Symbicort 160/4.5mcg -) 1 puff IH BID [facility] Last Admin: 09/15/18 10:48 Dose: 1 puff Cyanocobalamin (Vitamin B12 -) 1,000 mcg PO DAILY [facility] Last Admin: 09/15/18 10:47 Dose: 1,000 mcg Furosemide (Lasix Injection -) 40 mg IVPUSH BID@0600,1400 [facility] Gabapentin (Neurontin -) 100 mg PO TID [facility] Last Admin: 09/15/18 06:17 Dose: 100 mg Hydralazine HCl (Apresoline -) 25 mg PO BID [facility] Last Admin: 09/15/18 10:48 Dose: 25 mg Insulin Aspart (Novolog Vial Sliding Scale -) 1 vial SQ ACHS [facility]; Protocol Last Admin: 09/15/18 12:12 Dose: 2 units Isosorbide Mononitrate (Imdur -) 30 mg PO DAILY [facility] Last Admin: 09/15/18 10:48 Dose: 30 mg Levothyroxine Sodium (Synthroid -) 25 mcg PO DAILY@0700 [facility] Last Admin: 09/15/18 06:17 Dose: 25 mcg Metoprolol Succinate (Toprol Xl -) 100 mg PO DAILY [facility] Last Admin: 09/15/18 10:47 Dose: 100 mg Multivitamins/Minerals/Vitamin C (Tab-A-Vit -) 1 tab PO DAILY [facility] Last Admin: 09/15/18 10:48 Dose: 1 tab Non-Formulary Medication (Tiotropium Br/Olodaterol Hcl [Stiolto Respimat Inhal [place]]) 2 puff IH BID [facility] Pantoprazole Sodium (Protonix -) 40 mg PO DAILY [facility] Last Admin: 09/15/18 10:48 Dose: 40 mg Polyethylene Glycol (Miralax (For Daily Use) -) 17 gm PO DAILY [facility] Last Admin: 09/14/18 10:20 Dose: Not Given Senna (Senna -) 1 tab PO HS [facility] Last Admin: 09/14/18 21:42 Dose: Not Given Tamsulosin HCl (Flomax -) 0.4 mg PO DAILY@0830 [facility] Last Admin: 09/15/18 10:47 Dose: 0.4 mg - Objective Vital Signs: Vital Signs Temperature 98.5 F 09/15/18 10:00 Pulse Rate 74 09/15/18 10:00 Respiratory Rate 18 09/15/18 10:00 Blood Pressure 128/62 09/15/18 10:00 O2 Sat by Pulse Oximetry (%) 95 09/15/18 09:00 Constitutional: Yes: Calm Eyes: Yes: Conjunctiva Clear HENT: Yes: Atraumatic Cardiovascular: Yes: S1, S2 Respiratory: Yes: CTA Bilaterally, On Nasal O2 Gastrointestinal: Yes: Soft Genitourinary: Yes: WNL Musculoskeletal: Yes: Other (bka) Edema: Yes Neurological: Yes: Oriented Psychiatric: Yes: Oriented Labs: CBC, BMP 09/15/18 08:30 09/15/18 08:30 INR, PTT INR 1.16 (0.83-1.09) H 09/14/18 05:30 Problem List - Problems (1) COPD exacerbation Code(s): J44.1 - CHRONIC OBSTRUCTIVE PULMONARY DISEASE W (ACUTE) EXACERBATION (2) Heart failure Code(s): I50.9 - HEART FAILURE, UNSPECIFIED Qualifiers: Heart failure type: combined systolic and diastolic Heart failure chronicity: acute on chronic Qualified Code(s): I50.43 - Acute on chronic combined systolic (congestive) and diastolic (congestive) heart failure (3) Nephrotic range proteinuria Code(s): R80.9 - PROTEINURIA, UNSPECIFIED (4) CKD (chronic kidney disease) Code(s): N18.9 - CHRONIC KIDNEY DISEASE, UNSPECIFIED Qualifiers: Chronic kidney disease stage: stage 3 (moderate) Qualified Code(s): N18.3 - Chronic kidney disease, stage 3 (moderate) Assessment/Plan Current Medications Generic Name Dose Route Start Last Admin Trade Name Freq PRN Reason Stop Dose Admin Albuterol/Ipratropium 1 amp 09/11/18 16:00 09/15/18 11:56 Duoneb - NEB Not Given RQID [facility] Aspirin 81 mg 09/12/18 10:00 09/15/18 10:48 Ecotrin - PO 81 mg DAILY [facility] Administration Atorvastatin Calcium 40 mg 09/11/18 22:00 09/14/18 21:39 Lipitor - PO 40 mg HS [facility] Administration Budesonide/Formoterol Fumarate 1 puff 09/11/18 22:00 09/15/18 10:48 Symbicort 160/4.5mcg - IH 1 puff BID [facility] Administration Cyanocobalamin 1,000 mcg 09/12/18 10:00 09/15/18 10:47 Vitamin B12 - PO 1,000 mcg DAILY [facility] Administration Furosemide 40 mg 09/15/18 11:05 Lasix Injection - IVPUSH BID@0600,1400 [facility] Gabapentin 100 mg 09/11/18 22:00 09/15/18 06:17 Neurontin - PO 100 mg TID [facility] Administration Hydralazine HCl 25 mg 09/13/18 14:00 09/15/18 10:48 Apresoline - PO 25 mg BID [facility] Administration Insulin Aspart 1 vial 09/11/18 16:30 09/15/18 12:12 Novolog Vial Sliding Scale - SQ 2 units ACHS [facility] Administration Protocol Isosorbide Mononitrate 30 mg 09/14/18 10:00 09/15/18 10:48 Imdur - PO 30 mg DAILY [facility] Administration Levothyroxine Sodium 25 mcg 09/12/18 07:00 09/15/18 06:17 Synthroid - PO 25 mcg DAILY@0700 [facility] Administration Metoprolol Succinate 100 mg 09/12/18 10:00 09/15/18 10:47 Toprol Xl - PO 100 mg DAILY [facility] Administration Multivitamins/Minerals/Vitamin C 1 tab 09/12/18 10:00 09/15/18 10:48 Tab-A-Vit - PO 1 tab DAILY [facility] Administration Non-Formulary Medication 2 puff 09/11/18 22:00 Tiotropium Br/Olodaterol Hcl [Stiolto Respimat Inhal [place]] IH BID [facility] Pantoprazole Sodium 40 mg 09/12/18 10:00 09/15/18 10:48 Protonix - PO 40 mg DAILY [facility] Administration Polyethylene Glycol 17 gm 09/12/18 10:00 12/26/18 10:20 Miralax (For Daily Use) - PO Not Given DAILY [facility] Senna 1 tab 09/11/18 22:00 09/14/18 21:42 Senna - PO Not Given HS [facility] Tamsulosin HCl 0.4 mg 09/12/18 08:30 09/15/18 10:47 Flomax - PO 0.4 mg DAILY@0830 [facility] Administration Laboratory Tests 09/14/18 15:35 Protein/Creatinin Ratio 2.45 Impression 1. CKD 2. anemia 3. history of hyperkalemia 4. HTN 5. DM 6. hypothyroidism 7. HLD 8. copd 9. proteinuria - nephrotic 10. active smoker 11. fluid overload Plan - cont lasix - replace mag - monitor renal function - weight is improving - myeloma workup - refusing kidney biopsy at this point - not on bebeto or arb secondary to hyperkalemia - will follow Dr Haley
--- NOTE | 2018-09-15 16:35 | PN ---
Progress Note, Physician Chief Complaint: RLE swelling and Dyspnea History of Present Illness: 24hour events: stable, no acute events overnight. 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 - Current Medication List Current Medications: Active Medications Albuterol/Ipratropium (Duoneb -) 1 amp NEB RQID [facility] Last Admin: 09/15/18 11:56 Dose: Not Given Aspirin (Ecotrin -) 81 mg PO DAILY [facility] Last Admin: 09/15/18 10:48 Dose: 81 mg Atorvastatin Calcium (Lipitor -) 40 mg PO HS [facility] Last Admin: 09/14/18 21:39 Dose: 40 mg Budesonide/Formoterol Fumarate (Symbicort 160/4.5mcg -) 1 puff IH BID [facility] Last Admin: 09/15/18 10:48 Dose: 1 puff Cyanocobalamin (Vitamin B12 -) 1,000 mcg PO DAILY [facility] Last Admin: 09/15/18 10:47 Dose: 1,000 mcg Furosemide (Lasix Injection -) 40 mg IVPUSH BID@0600,1400 [facility] Last Admin: 09/15/18 14:49 Dose: 40 mg Gabapentin (Neurontin -) 100 mg PO TID [facility] Last Admin: 09/15/18 14:49 Dose: 100 mg Hydralazine HCl (Apresoline -) 25 mg PO BID [facility] Last Admin: 09/15/18 10:48 Dose: 25 mg Insulin Aspart (Novolog Vial Sliding Scale -) 1 vial SQ ACHS [facility]; Protocol Last Admin: 09/15/18 12:12 Dose: 2 units Isosorbide Mononitrate (Imdur -) 30 mg PO DAILY [facility] Last Admin: 09/15/18 10:48 Dose: 30 mg Levothyroxine Sodium (Synthroid -) 25 mcg PO DAILY@0700 [facility] Last Admin: 09/15/18 06:17 Dose: 25 mcg Metoprolol Succinate (Toprol Xl -) 100 mg PO DAILY [facility] Last Admin: 09/15/18 10:47 Dose: 100 mg Multivitamins/Minerals/Vitamin C (Tab-A-Vit -) 1 tab PO DAILY [facility] Last Admin: 09/15/18 10:48 Dose: 1 tab Non-Formulary Medication (Tiotropium Br/Olodaterol Hcl [Stiolto Respimat Inhal [place]]) 2 puff IH BID [facility] Pantoprazole Sodium (Protonix -) 40 mg PO DAILY [facility] Last Admin: 09/15/18 10:48 Dose: 40 mg Polyethylene Glycol (Miralax (For Daily Use) -) 17 gm PO DAILY [facility] Last Admin: 09/14/18 10:20 Dose: Not Given Senna (Senna -) 1 tab PO HS [facility] Last Admin: 09/14/18 21:42 Dose: Not Given Tamsulosin HCl (Flomax -) 0.4 mg PO DAILY@0830 [facility] Last Admin: 09/15/18 10:47 Dose: 0.4 mg - Objective Vital Signs: Vital Signs Temperature 98.7 F 09/15/18 14:00 Pulse Rate 78 09/15/18 14:00 Respiratory Rate 20 09/15/18 14:00 Blood Pressure 109/59 L 09/15/18 14:00 O2 Sat by Pulse Oximetry (%) 95 09/15/18 09:00 Constitutional: Yes: No Distress, Calm Eyes: Yes: Conjunctiva Clear HENT: Yes: Atraumatic, Normocephalic Neck: Yes: Supple Cardiovascular: Yes: Regular Rate and Rhythm, Murmur (4/6 systolic murmur across precordium) Respiratory: Yes: Diminished (at the bases) Gastrointestinal: Yes: Normal Bowel Sounds, Soft ...Rectal Exam: Yes: Deferred Extremities: Yes: Amputation (LEft BKA) Edema: Yes Edema: RLE: 2+ Peripheral Pulses: Left Radial: 2+, Right Radial: 2+, Right Dorsalis Pedis: 1+ Integumentary: Yes: WNL Wound/Incision: Yes: Clean/Dry (LEft BKA stump) Neurological: Yes: Alert, Oriented Psychiatric: Yes: Alert, Oriented Labs: CBC, BMP 09/15/18 08:30 09/15/18 08:30 INR, PTT INR 1.16 (0.83-1.09) H 09/14/18 05:30 Problem List - Problems (1) Prophylactic measure Assessment/Plan: ASA 81mg daily bowel regimen with senna and colace incentive spirometry OOB to chair. SC heparin BID Code(s): Z29.9 - ENCOUNTER FOR PROPHYLACTIC MEASURES, UNSPECIFIED (2) BPH (benign prostatic hyperplasia) Assessment/Plan: flomax 0.4mg daily Code(s): N40.0 - BENIGN PROSTATIC HYPERPLASIA WITHOUT LOWER URINRY TRACT SYMP (3) COPD exacerbation Assessment/Plan: symbicort BID stiolto 2puffs BID Duoneb QID 3L [place] PRN Code(s): J44.1 - CHRONIC OBSTRUCTIVE PULMONARY DISEASE W (ACUTE) EXACERBATION (4) Dyslipidemia (high LDL; low HDL) Assessment/Plan: lipitor 40mg qhs [place] diet Code(s): E78.5 - HYPERLIPIDEMIA, UNSPECIFIED (5) Heart failure Assessment/Plan: lasix 40mg BID imdur 30mg daily Code(s): I50.9 - HEART FAILURE, UNSPECIFIED Qualifiers: Heart failure type: combined systolic and diastolic Heart failure chronicity: acute on chronic Qualified Code(s): I50.43 - Acute on chronic combined systolic (congestive) and diastolic (congestive) heart failure (6) Non-insulin dependent type 2 diabetes mellitus Assessment/Plan: diabetic diet insulin sliding scale Code(s): E11.9 - TYPE 2 DIABETES MELLITUS WITHOUT COMPLICATIONS (7) CKD (chronic kidney disease) Assessment/Plan: trend Cr, replete electrolyte as needed decrease Lasix to 40mg BID Code(s): N18.9 - CHRONIC KIDNEY DISEASE, UNSPECIFIED Qualifiers: Chronic kidney disease stage: stage 3 (moderate) Qualified Code(s): N18.3 - Chronic kidney disease, stage 3 (moderate) (8) HTN (hypertension) Assessment/Plan: Metoprolol succ. 100mg daily. Hydralazine BID Code(s): I10 - ESSENTIAL (PRIMARY) HYPERTENSION (9) Hypothyroid Assessment/Plan: continue synthroid 25mcg daily Code(s): E03.9 - HYPOTHYROIDISM, UNSPECIFIED Qualifiers: Hypothyroidism type: unspecified Qualified Code(s): E03.9 - Hypothyroidism , unspecified Impression/Plan Impression/Plan: DISPO: Full code. Visit type - Emergency Visit Emergency Visit: Yes ED Registration Date: 09/11/18 Care time: The patient presented to the Emergency Department on the above date and was hospitalized for further evaluation of their emergent condition. - New Patient This patient is new to me today: Yes Date on this admission: 09/15/18 - Critical Care Critical Care patient: No - Discharge Referral Referred to [facility] Med P.C.: No
[2018-09-15] MEDS: POLYETHYLENE GLYCOL 3350 119 GM BTL PO SCH (17:41)
[2018-09-15] MEDS: ATORVASTATIN CA 40 MG TABLET (FP) PO SCH (21:51)
[2018-09-15] MEDS: SENNOSIDES 8.6MG TABLET (FP) PO SCH (21:52)
[2018-09-15] MEDS: HEPARIN NA (PORCINE) 5,000 UNITS/ML 1ML VIAL SQ SCH (22:03)
[2018-09-16] MEDS: FUROSEMIDE 40 MG/4 ML INJECTABLE VIAL IVPUSH SCH ×2 (05:42→13:23)
[2018-09-16] MEDS: GABAPENTIN 100 MG CAPSULE (FP) PO SCH ×3 (06:03→23:09)
[2018-09-16] MEDS: LEVOTHYROXINE NA 25 MCG TABLET (FP) PO SCH ×2 (06:03→07:55)
[2018-09-16] MEDS: INSULIN SLIDING SCALE (NOVOLOG) 1 VIAL SQ SCH ×4 (06:19→23:13)
[2018-09-16 06:53] LABS: HEMATOCRIT 22.7 % (35.4-49); HEMOGLOBIN 7.5 GM/dL (11.7-16.9); MCHC 33.1 g/dl (32.0-35.9); MEAN CELL VOLUME 102.6 fl (80-96); MEAN PLT VOLUME 9.8 fl (7.5-11.1); PLATELET COUNT 185 K/MM3 (134-434); RBC 2.21 M/mm3 (4.00-5.60); RDW 22.6 % (11.9-15.9); WHITE BLOOD COUNT 6.7 K/mm3 (4.0-10.0)
[2018-09-16] MEDS: ALBUTEROL SO4 2.5/IPRATROPIUM 0.5 INH SOL 3 ML VIAL.NEB. NEB SCH ×4 (07:25→20:55)
[2018-09-16] MEDS: TAMSULOSIN HCL 0.4 MG CAP PO SCH (07:55)
[2018-09-16 08:05] LABS: ANION GAP 6 MMOL/L (8-16); BLOOD UREA NITROGEN 58 mg/dL (7-18); CALCIUM 7.8 mg/dL (8.5-10.1); CHLORIDE 105 mmol/L (98-107); CO2 31 mmol/L (21-32); CREATININE 2.2 mg/dL (0.55-1.3); GLUCOSE,RANDOM 168 mg/dL (74-106); MAGNESIUM 1.3 mg/dL (1.8-2.4); N-TERMINAL BNP 48613.5 pg/ml (5-125); POTASSIUM 4.1 mmol/L (3.5-5.1); SODIUM 142 mmol/L (136-145)
[2018-09-16] MEDS: ASPIRIN COATED 81 MG TABLET.EC PO SCH (09:31)
[2018-09-16] MEDS: ISOSORBIDE MONONITRATE 30 MG TAB.SR.24H (FP) PO SCH (09:31)
[2018-09-16] MEDS: HEPARIN NA (PORCINE) 5,000 UNITS/ML 1ML VIAL SQ SCH ×2 (09:31→23:09)
[2018-09-16] MEDS: CYANOCOBALAMIN 1,000 MCG TABLET (FP) PO SCH (09:31)
[2018-09-16] MEDS: hydrALAZINE HCL 25 MG TABLET (FP) PO SCH ×2 (09:31→23:08)
[2018-09-16] MEDS: MULTIVITAMINS (DAILY MVI) TABLET (FP) PO SCH (09:31)
[2018-09-16] MEDS: PANTOPRAZOLE 40 MG TABLET (FP) PO SCH (09:31)
[2018-09-16] MEDS: POLYETHYLENE GLYCOL 3350 119 GM BTL PO SCH (09:31)
[2018-09-16] MEDS: BUDESONIDE/FORMETEROL FUMARATE 160/4.5 mcg INHALER IH SCH ×2 (09:32→23:13)
--- NOTE | 2018-09-16 09:33 | PN ---
Progress Note, Physician History of Present Illness: SOB improves after nebs, anemic post transfusion and RLE swelling persists despite diuresis, denies bleed source. He sees Tello Manzano MD for cardiology [phone] - Current Medication List Current Medications: Active Medications Albuterol/Ipratropium (Duoneb -) 1 amp NEB RQID [facility] Last Admin: 09/16/18 07:25 Dose: 1 amp Aspirin (Ecotrin -) 81 mg PO DAILY [facility] Last Admin: 09/16/18 09:31 Dose: 81 mg Atorvastatin Calcium (Lipitor -) 40 mg PO HS [facility] Last Admin: 09/15/18 21:51 Dose: 40 mg Budesonide/Formoterol Fumarate (Symbicort 160/4.5mcg -) 1 puff IH BID [facility] Last Admin: 09/16/18 09:32 Dose: 1 puff Cyanocobalamin (Vitamin B12 -) 1,000 mcg PO DAILY [facility] Last Admin: 09/16/18 09:31 Dose: 1,000 mcg Furosemide (Lasix Injection -) 40 mg IVPUSH BID@0600,1400 [facility] Last Admin: 09/16/18 05:42 Dose: 40 mg Gabapentin (Neurontin -) 100 mg PO TID [facility] Last Admin: 09/16/18 06:03 Dose: Not Given Heparin Sodium (Porcine) (Heparin -) 5,000 unit SQ BID [facility] Last Admin: 09/16/18 09:31 Dose: 5,000 unit Hydralazine HCl (Apresoline -) 25 mg PO BID [facility] Last Admin: 09/16/18 09:31 Dose: 25 mg Insulin Aspart (Novolog Vial Sliding Scale -) 1 vial SQ [facility]; Protocol Last Admin: 09/16/18 06:19 Dose: 2 units Isosorbide Mononitrate (Imdur -) 30 mg PO DAILY [facility] Last Admin: 09/16/18 09:31 Dose: 30 mg Levothyroxine Sodium (Synthroid -) 25 mcg PO DAILY@0700 [facility] Last Admin: 09/16/18 07:55 Dose: 25 mcg Metoprolol Succinate (Toprol Xl -) 100 mg PO DAILY [facility] Last Admin: 09/16/18 09:31 Dose: 100 mg Multivitamins/Minerals/Vitamin C (Tab-A-Vit -) 1 tab PO DAILY [facility] Last Admin: 09/16/18 09:31 Dose: 1 tab Non-Formulary Medication (Tiotropium Br/Olodaterol Hcl [Stiolto Respimat Inhal [place]]) 2 puff IH BID [facility] Pantoprazole Sodium (Protonix -) 40 mg PO DAILY [facility] Last Admin: 09/16/18 09:31 Dose: 40 mg Polyethylene Glycol (Miralax (For Daily Use) -) 17 gm PO DAILY [facility] Last Admin: 09/16/18 09:31 Dose: 17 gm Senna (Senna -) 1 tab PO HS [facility] Last Admin: 09/15/18 21:52 Dose: Not Given Tamsulosin HCl (Flomax -) 0.4 mg PO DAILY@0830 [facility] Last Admin: 09/16/18 07:55 Dose: 0.4 mg - Objective Vital Signs: Vital Signs Temperature 98.7 F 09/16/18 05:10 Pulse Rate 83 09/16/18 05:10 Respiratory Rate 20 09/16/18 05:10 Blood Pressure 137/73 09/16/18 05:10 O2 Sat by Pulse Oximetry (%) 98 09/15/18 20:49 Constitutional: Yes: No Distress, Calm, Thin Neck: Yes: Supple Cardiovascular: Yes: Regular Rate and Rhythm Respiratory: Yes: Regular, Diminished, On Nasal O2 Gastrointestinal: Yes: Normal Bowel Sounds, Soft Extremities: Yes: Amputation (Left BKA) Edema: Yes Edema: RLE: 2+ Labs: CBC, BMP 09/16/18 05:30 09/16/18 05:30 INR, PTT INR 1.16 (0.83-1.09) H 09/14/18 05:30 - ....Imaging EKG: Report Reviewed (Tele: SR) Problem List - Problems (1) Nephrotic range proteinuria Code(s): R80.9 - PROTEINURIA, UNSPECIFIED (2) Heart failure Code(s): I50.9 - HEART FAILURE, UNSPECIFIED Qualifiers: Heart failure type: combined systolic and diastolic Heart failure chronicity: acute on chronic Qualified Code(s): I50.43 - Acute on chronic combined systolic (congestive) and diastolic (congestive) heart failure (3) CKD (chronic kidney disease) Code(s): N18.9 - CHRONIC KIDNEY DISEASE, UNSPECIFIED Qualifiers: Chronic kidney disease stage: stage 3 (moderate) Qualified Code(s): N18.3 - Chronic kidney disease, stage 3 (moderate) (4) Cardiomyopathy as manifestation of underlying disease Code(s): I43 - CARDIOMYOPATHY IN DISEASES CLASSIFIED ELSEWHERE (5) Hypothyroid Code(s): E03.9 - HYPOTHYROIDISM, UNSPECIFIED Qualifiers: Hypothyroidism type: unspecified Qualified Code(s): E03.9 - Hypothyroidism , unspecified (6) COPD exacerbation Code(s): J44.1 - CHRONIC OBSTRUCTIVE PULMONARY DISEASE W (ACUTE) EXACERBATION Assessment/Plan Echocardiogram 05/30/2018 showed normal LV size, wall motion and systolic function. Normal RV. Borderline LA dilatation. Moderate with SADAF = 0.93cm2, PG = 33.3 mmHg, MG = 21.3 mmHg. Mild to moderate MR. No pericardial effusion. Echocardiogram 07/14/18 shows LV moderately dilated. LV systolic fx is mildly reduced. mild global hypokinesis of the LV. RV is normal in size and fx. moderate mitral regurg. mild to mod valvular aortic stenosis. EF-45-50%. Echocardiogram 09/12/2018: Dilated LV with moderate decreased LV fxn, mod- severe MR, normal RV size and fxn, mild pulm HTN RVSP 40 mmHg, ascites, mod AV sclerosis Chest CT 09/04/2018 Bilateral effusions with compressive ATX 1. BRAGG to AE mod-severe copd, active smoker 2. Acute on chronic diastolic/systolic failure 3. Anemia post transfusion, ? MDS vs multiple myeloma 4. CKD with proteinuria - nephrotic and h/o hyperkalemia 5. HTN 6. Type 2 DM 7. hypothyroidism 8. HLD 9. high transaminases from hepatic congestion?- improving 10. 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 Continue IV diuresis with monitor diuretic response renal fxn and electrolyes , declines wrap leg 2. Continue bronchodilators, inhaled steroids, O2 as needed, completed empiric abx course 3. JACKIE for anemia, IV Venofer, transfuse to maintain Hgb>8.0 4. Continue ASA 81 qd, Lipitor 40 qhs, Toprol XL 100 qd, not on CATHY-I/ARB due to hyperkalemia, started BiDil as hemodynamics tolerate 5. Declines renal biopsy at this point
--- NOTE | 2018-09-16 13:22 | PN ---
Progress Note, Physician History of Present Illness: continues to be sob comfortable - Current Medication List Current Medications: Active Medications Albuterol/Ipratropium (Duoneb -) 1 amp NEB RQID [facility] Last Admin: 09/16/18 07:25 Dose: 1 amp Aspirin (Ecotrin -) 81 mg PO DAILY [facility] Last Admin: 09/16/18 09:31 Dose: 81 mg Atorvastatin Calcium (Lipitor -) 40 mg PO HS [facility] Last Admin: 09/15/18 21:51 Dose: 40 mg Budesonide/Formoterol Fumarate (Symbicort 160/4.5mcg -) 1 puff IH BID [facility] Last Admin: 09/16/18 09:32 Dose: 1 puff Cyanocobalamin (Vitamin B12 -) 1,000 mcg PO DAILY [facility] Last Admin: 09/16/18 09:31 Dose: 1,000 mcg Furosemide (Lasix Injection -) 40 mg IVPUSH BID@0600,1400 [facility] Last Admin: 09/16/18 05:42 Dose: 40 mg Gabapentin (Neurontin -) 100 mg PO TID [facility] Last Admin: 09/16/18 06:03 Dose: Not Given Heparin Sodium (Porcine) (Heparin -) 5,000 unit SQ BID [facility] Last Admin: 09/16/18 09:31 Dose: 5,000 unit Hydralazine HCl (Apresoline -) 25 mg PO BID [facility] Last Admin: 09/16/18 09:31 Dose: 25 mg Insulin Aspart (Novolog Vial Sliding Scale -) 1 vial SQ ACHS [facility]; Protocol Last Admin: 09/16/18 11:49 Dose: 4 units Isosorbide Mononitrate (Imdur -) 30 mg PO DAILY [facility] Last Admin: 09/16/18 09:31 Dose: 30 mg Levothyroxine Sodium (Synthroid -) 25 mcg PO DAILY@0700 [facility] Last Admin: 09/16/18 07:55 Dose: 25 mcg Metoprolol Succinate (Toprol Xl -) 100 mg PO DAILY [facility] Last Admin: 09/16/18 09:31 Dose: 100 mg Multivitamins/Minerals/Vitamin C (Tab-A-Vit -) 1 tab PO DAILY [facility] Last Admin: 09/16/18 09:31 Dose: 1 tab Non-Formulary Medication (Tiotropium Br/Olodaterol Hcl [Stiolto Respimat Inhal [place]]) 2 puff IH BID [facility] Pantoprazole Sodium (Protonix -) 40 mg PO DAILY [facility] Last Admin: 09/16/18 09:31 Dose: 40 mg Polyethylene Glycol (Miralax (For Daily Use) -) 17 gm PO DAILY [facility] Last Admin: 09/16/18 09:31 Dose: 17 gm Senna (Senna -) 1 tab PO HS [facility] Last Admin: 09/15/18 21:52 Dose: Not Given Tamsulosin HCl (Flomax -) 0.4 mg PO DAILY@0830 [facility] Last Admin: 09/16/18 07:55 Dose: 0.4 mg - Objective Vital Signs: Vital Signs Temperature 98.1 F 09/16/18 10:00 Pulse Rate 79 09/16/18 10:00 Respiratory Rate 20 09/16/18 10:00 Blood Pressure 104/60 09/16/18 10:00 O2 Sat by Pulse Oximetry (%) 98 09/16/18 09:00 Constitutional: Yes: No Distress, Calm, Thin Cardiovascular: Yes: S1, S2 Respiratory: Yes: Regular, Poor Air Entry Gastrointestinal: Yes: Normal Bowel Sounds, Soft Musculoskeletal: Yes: Other Extremities: Yes: Other Neurological: Yes: Alert, Oriented Psychiatric: Yes: Alert, Oriented Labs: CBC, BMP 09/16/18 05:30 09/16/18 05:30 INR, PTT INR 1.16 (0.83-1.09) H 09/14/18 05:30 Assessment/Plan Problem List - Problems (1) Nephrotic range proteinuria Code(s): R80.9 - PROTEINURIA, UNSPECIFIED (2) Heart failure Code(s): I50.9 - HEART FAILURE, UNSPECIFIED Qualifiers: Heart failure type: combined systolic and diastolic Heart failure chronicity: acute on chronic Qualified Code(s): I50.43 - Acute on chronic combined systolic (congestive) and diastolic (congestive) heart failure (3) CKD (chronic kidney disease) Code(s): N18.9 - CHRONIC KIDNEY DISEASE, UNSPECIFIED Qualifiers: Chronic kidney disease stage: stage 3 (moderate) Qualified Code(s): N18.3 - Chronic kidney disease, stage 3 (moderate) (4) Cardiomyopathy as manifestation of underlying disease Code(s): I43 - CARDIOMYOPATHY IN DISEASES CLASSIFIED ELSEWHERE (5) Hypothyroid Code(s): E03.9 - HYPOTHYROIDISM, UNSPECIFIED Qualifiers: Hypothyroidism type: unspecified Qualified Code(s): E03.9 - Hypothyroidism , unspecified plan continue current mgmt incentive jerad rest as per the team and cardio
[2018-09-16] MEDS: PATIENT'S OWN MEDICATION (NON-FORMULARY) (Tiotropium Br/Olodaterol Hcl [Stiolto Respimat I IH SCH ×3 (15:49→15:51)
--- NOTE | 2018-09-16 16:13 | PN ---
Progress Note, Physician History of Present Illness: Pt seen and examined at bedside. He denies shortness of breath. He feels that edema is improving. - Current Medication List Current Medications: Active Medications Albuterol/Ipratropium (Duoneb -) 1 amp NEB RQID [facility] Last Admin: 09/16/18 15:09 Dose: 1 amp Aspirin (Ecotrin -) 81 mg PO DAILY [facility] Atorvastatin Calcium (Lipitor -) 40 mg PO HS [facility] Budesonide/Formoterol Fumarate (Symbicort 160/4.5mcg -) 1 puff IH BID [facility] Cyanocobalamin (Vitamin B12 -) 1,000 mcg PO DAILY [facility] Furosemide (Lasix Injection -) 40 mg IVPUSH BID@0600,1400 [facility] Gabapentin (Neurontin -) 100 mg PO TID [facility] Heparin Sodium (Porcine) (Heparin -) 5,000 unit SQ BID [facility] Hydralazine HCl (Apresoline -) 25 mg PO BID [facility] Insulin Aspart (Novolog Vial Sliding Scale -) 1 vial SQ ACHS [facility]; Protocol Isosorbide Mononitrate (Imdur -) 30 mg PO DAILY [facility] Levothyroxine Sodium (Synthroid -) 25 mcg PO DAILY@0700 [facility] Metoprolol Succinate (Toprol Xl -) 100 mg PO DAILY [facility] Multivitamins/Minerals/Vitamin C (Tab-A-Vit -) 1 tab PO DAILY [facility] Non-Formulary Medication (Tiotropium Br/Olodaterol Hcl [Stiolto Respimat Inhal [place]]) 2 puff IH BID [facility] Pantoprazole Sodium (Protonix -) 40 mg PO DAILY [facility] Polyethylene Glycol (Miralax (For Daily Use) -) 17 gm PO DAILY [facility] Senna (Senna -) 1 tab PO HS [facility] Tamsulosin HCl (Flomax -) 0.4 mg PO DAILY@0830 [facility] - Objective Vital Signs: Vital Signs Temperature 98.7 F 09/16/18 15:04 Pulse Rate 75 09/16/18 15:04 Respiratory Rate 19 09/16/18 15:04 Blood Pressure 107/64 09/16/18 15:04 O2 Sat by Pulse Oximetry (%) 98 09/16/18 09:00 Constitutional: Yes: Calm Eyes: Yes: Conjunctiva Clear HENT: Yes: Atraumatic Neck: Yes: Supple Cardiovascular: Yes: S1, S2 Respiratory: Yes: CTA Bilaterally Genitourinary: Yes: WNL Edema: Yes Neurological: Yes: Oriented Psychiatric: Yes: Oriented Labs: CBC, BMP 09/16/18 05:30 09/16/18 05:30 INR, PTT INR 1.16 (0.83-1.09) H 09/14/18 05:30 Problem List - Problems (1) COPD exacerbation Code(s): J44.1 - CHRONIC OBSTRUCTIVE PULMONARY DISEASE W (ACUTE) EXACERBATION (2) Heart failure Code(s): I50.9 - HEART FAILURE, UNSPECIFIED Qualifiers: Heart failure type: combined systolic and diastolic Heart failure chronicity: acute on chronic Qualified Code(s): I50.43 - Acute on chronic combined systolic (congestive) and diastolic (congestive) heart failure (3) Nephrotic range proteinuria Code(s): R80.9 - PROTEINURIA, UNSPECIFIED (4) CKD (chronic kidney disease) Code(s): N18.9 - CHRONIC KIDNEY DISEASE, UNSPECIFIED Qualifiers: Chronic kidney disease stage: stage 3 (moderate) Qualified Code(s): N18.3 - Chronic kidney disease, stage 3 (moderate) Assessment/Plan Current Medications Generic Name Dose Route Start Last Admin Trade Name Freq PRN Reason Stop Dose Admin Albuterol/Ipratropium 1 amp 09/16/18 16:00 09/16/18 15:09 Duoneb - NEB 1 amp RQID [facility] Administration Aspirin 81 mg 09/17/18 10:00 Ecotrin - PO DAILY [facility] Atorvastatin Calcium 40 mg 09/16/18 22:00 Lipitor - PO HS [facility] Budesonide/Formoterol Fumarate 1 puff 09/16/18 22:00 Symbicort 160/4.5mcg - IH BID [facility] Cyanocobalamin 1,000 mcg 09/17/18 10:00 Vitamin B12 - PO DAILY [facility] Furosemide 40 mg 09/17/18 06:00 Lasix Injection - IVPUSH BID@0600,1400 [facility] Gabapentin 100 mg 09/16/18 22:00 Neurontin - PO TID [facility] Heparin Sodium (Porcine) 5,000 unit 09/16/18 22:00 Heparin - SQ BID [facility] Hydralazine HCl 25 mg 09/16/18 22:00 Apresoline - PO BID [facility] Insulin Aspart 1 vial 09/16/18 16:30 Novolog Vial Sliding Scale - SQ ACHS [facility] Protocol Isosorbide Mononitrate 30 mg 09/17/18 10:00 Imdur - PO DAILY [facility] Levothyroxine Sodium 25 mcg 09/17/18 07:00 Synthroid - PO DAILY@0700 [facility] Metoprolol Succinate 100 mg 09/17/18 10:00 Toprol Xl - PO DAILY [facility] Multivitamins/Minerals/Vitamin C 1 tab 09/17/18 10:00 Tab-A-Vit - PO DAILY [facility] Non-Formulary Medication 2 puff 09/16/18 22:00 Tiotropium Br/Olodaterol Hcl [Stiolto Respimat Inhal [place]] IH BID [facility] Pantoprazole Sodium 40 mg 09/17/18 10:00 Protonix - PO DAILY [facility] Polyethylene Glycol 17 gm 09/17/18 10:00 Miralax (For Daily Use) - PO DAILY [facility] Senna 1 tab 09/16/18 22:00 Senna - PO HS [facility] Tamsulosin HCl 0.4 mg 09/17/18 08:30 Flomax - PO DAILY@0830 [facility] Impression 1. CKD 2. anemia 3. history of hyperkalemia 4. HTN 5. DM 6. hypothyroidism 7. HLD 8. copd 9. proteinuria - nephrotic 10. active smoker 11. fluid overload Plan - cont with lasix - potassium has bees stable - will attempt low dose losartan and monitor potassium - he will need to aleyda on lasix as outpt as well, which will help with potassium - weight is improving - myeloma workup - refusing kidney biopsy at this point - will follow Dr Haley
--- NOTE | 2018-09-16 16:23 | PN ---
Physical Exam: SUBJECTIVE: Patient seen and examined at the bedside. breathing slightly improving. OBJECTIVE: Vital Signs Period Temp Pulse Resp BP Sys/Stoner Pulse Ox Last 24 Hr 98 F-98.9 F 71-83 18-20 104-137/53-75 98-98 GENERAL: Awake, alert, and fully oriented, in no acute distress. HEAD: Normal with no signs of trauma. EYES: extraocular movements intact, sclera anicteric, conjunctiva clear. No lid lag. EARS, NOSE, THROAT: moist mucus membranes, nares patent, oropharynx clear without exudates NECK: Normal range of motion, supple without lymphadenopathy, JVD, or masses. LUNGS: diminished but mostly clear to auscultation, home oxygen dependent HEART: Regular rate and rhythm, normal S1 and S2 without murmur, rub or gallop. ABDOMEN: Protuberant, soft, nontender, normoactive bowel sounds, no guarding, no rebound, no masses. No hepatomegaly or splenomegaly. MUSCULOSKELETAL: Normal range of motion at all joints. No bony deformities or tenderness. No CVA tenderness. UPPER EXTREMITIES: No peripheral edema. LOWER EXTREMITIES: Left BKA (has prosthesis), right lwr ext non pitting edema. NEUROLOGICAL: No facial droop, tongue midline, normal speech PSYCHIATRIC: Cooperative. Good eye contact. Appropriate mood and affect. SKIN: Warm, dry, normal turgor, no rashes or lesions noted, normal capillary refill. Laboratory Results - last 24 hr 09/12/18 09/15/18 09/15/18 15:45 17:23 21:45 WBC RBC Hgb Hct MCV MCH MCHC RDW Plt Count MPV Sodium Potassium Chloride Carbon Dioxide Anion Gap BUN Creatinine Creat Clearance w eGFR POC Glucometer 180 194 Random Glucose Calcium Magnesium B-Natriuretic Peptide Blood Type A POSITIVE Antibody Screen Negative Crossmatch See Detail 09/16/18 09/16/18 09/16/18 05:30 05:30 05:31 WBC 6.7 RBC 2.21 L Hgb 7.5 L Hct 22.7 L MCV 102.6 H MCH 34.0 H MCHC 33.1 RDW 22.6 H Plt Count 185 D MPV 9.8 Sodium 142 Potassium 4.1 Chloride 105 Carbon Dioxide 31 Anion Gap 6 L BUN 58 H Creatinine 2.2 H Creat Clearance w eGFR 30.00 POC Glucometer 181 Random Glucose 168 H Calcium 7.8 L Magnesium 1.3 L B-Natriuretic Peptide 42246.5 H Blood Type Antibody Screen Crossmatch 09/16/18 11:22 WBC RBC Hgb Hct MCV MCH MCHC RDW Plt Count MPV Sodium Potassium Chloride Carbon Dioxide Anion Gap BUN Creatinine Creat Clearance w eGFR POC Glucometer 212 Random Glucose Calcium Magnesium B-Natriuretic Peptide Blood Type Antibody Screen Crossmatch Active Medications Generic Name Dose Route Start Last Admin Trade Name Freq PRN Reason Stop Dose Admin Albuterol/Ipratropium 1 amp 09/16/18 16:00 09/16/18 15:09 Duoneb - NEB 1 amp RQID [facility] Administration Aspirin 81 mg 09/17/18 10:00 Ecotrin - PO DAILY [facility] Atorvastatin Calcium 40 mg 09/16/18 22:00 Lipitor - PO HS [facility] Budesonide/Formoterol Fumarate 1 puff 09/16/18 22:00 Symbicort 160/4.5mcg - IH BID [facility] Cyanocobalamin 1,000 mcg 09/17/18 10:00 Vitamin B12 - PO DAILY [facility] Furosemide 40 mg 09/17/18 06:00 Lasix Injection - IVPUSH BID@0600,1400 [facility] Gabapentin 100 mg 09/16/18 22:00 Neurontin - PO TID [facility] Heparin Sodium (Porcine) 5,000 unit 09/16/18 22:00 Heparin - SQ BID [facility] Hydralazine HCl 25 mg 09/16/18 22:00 Apresoline - PO BID [facility] Insulin Aspart 1 vial 09/16/18 16:30 Novolog Vial Sliding Scale - SQ ACHS [facility] Protocol Isosorbide Mononitrate 30 mg 09/17/18 10:00 Imdur - PO DAILY [facility] Levothyroxine Sodium 25 mcg 09/17/18 07:00 Synthroid - PO DAILY@0700 [facility] Losartan Potassium 25 mg 09/17/18 10:00 Cozaar - PO DAILY [facility] Metoprolol Succinate 100 mg 09/17/18 10:00 Toprol Xl - PO DAILY [facility] Multivitamins/Minerals/Vitamin C 1 tab 09/17/18 10:00 Tab-A-Vit - PO DAILY [facility] Non-Formulary Medication 2 puff 09/16/18 22:00 Tiotropium Br/Olodaterol Hcl [Stiolto Respimat Inhal [place]] IH BID [facility] Pantoprazole Sodium 40 mg 09/17/18 10:00 Protonix - PO DAILY [facility] Polyethylene Glycol 17 gm 09/17/18 10:00 Miralax (For Daily Use) - PO DAILY [facility] Senna 1 tab 09/16/18 22:00 Senna - PO HS [facility] Tamsulosin HCl 0.4 mg 09/17/18 08:30 Flomax - PO DAILY@0830 [facility] imaging: Echo 05/30/2018 showed normal LV size, wall motion and systolic function. Normal RV. Borderline LA dilatation. Mild to moderate MR. No pericardial effusion. Echo 07/14/18 shows LV moderately dilated. LV systolic fx is mildly reduced. mild global hypokinesis of the LV. RV is normal in size and fx. moderate mitral regurg. mild to mod valvular aortic stenosis. Echo 09/12/2018: Dilated lv with segmental wall motion abnormality. reduced lv systolic fx. moderate to severe mitral regurg. right vent. is normal in sz and fx. mild pulmonary hypertension. ascites present. ASSESSMENT/PLAN: Patient is a 67 year old male with a past medical history of laryngeal cancer s/ p RT, chronic systolic CHF, BPH, chronic respiratory failure sec to COPD/CHF on 2L O2 via [place] (recently discharged 09/05/18), active smoker, CKD 3, chronic anemia, hypertension, HLD, PAD s/p LBKA and hypothyroidism. He presents with increasing SOB worse over the past 3 days, exacerbated by exertion. Heme: Symptomatic anemia/anemia of chronic disease. S/p prbc transfusions, hmg/hct low stable. Would monitor daily and transfuse as needed patient presented with shortness of breath on admission. now improved with oxygen therapy, duonebs and prbc transfusion. Continue Protonix daily. hematology consulted Pulm: COPD exacerbation On Symbicort 160/4.5mcg 1 inh PO BID Stiolto Respimat Inhal [place] 2 puff IH BID Nebs PRN Patient started on oxygen therapy on last admission at 3 liters bibasal infiltrates on chest xray Card: Acute on chronic diastolic/systolic failure Presents with BNP of 40k. Echo 05/30/18 shows normal LV size, echo 07/14/18 shoes lv mod. dilated. repeated echo on this admission shows Dilated lv with segmental wall motion abnormality. reduced lv systolic fx. Patient on Metoprolol. was previously on an bebeto which was stopped 2/2 to ckd cardiology following. on Lasix 40mg IV BID. Weights 88kg>81kg with diuresis. Hypertension. chronic On Metoprolol succ. 100mg daily. Hydralazine BID Hld. chronic On Lipitor Psyche Current everyday smoker. Tobacco cessation discussed. refusing nicotine patch. Renal: MEENAKSHI on CKD BUN/Cr 66/2.7 -> 58/2.[address] croze [address] Dr[address] Hlaey. pt for a renal biopsy as outpatient On procrit On a renal diet. Onc: Lung nodule Also noted was a 9mm lung nodule seen on chest CT of 05/31/[address]. Patient is following up at [facility] outpatient and had a recent pet scan with facility. He will continue to follow up outpatient. Endocrine: DM. monitor bgms, started novolog ss hmga1c 05/2018 6.0, hmg a1c 09/04/18 7.0. On SS Hypothyroidism Levothyroxine 25 mcg PO DAILY fen PO hydration adequate monitor electrolytes renal diet prophy heparin Visit type - Emergency Visit Emergency Visit: Yes ED Registration Date: 09/11/18 Care time: The patient presented to the Emergency Department on the above date and was hospitalized for further evaluation of their emergent condition. - New Patient This patient is new to me today: No - Critical Care Critical Care patient: No - Discharge Referral Referred to [facility] Med P.C.: No
--- NOTE | 2018-09-16 19:19 | EKG ---
Test Reason : Blood Pressure : / mmHG Vent. Rate : 091 BPM Atrial Rate : 091 BPM P-R Int : 206 ms QRS Dur : 134 ms QT Int : 422 ms P-R-T Axes : 074 -83 044 degrees QTc Int : 519 ms NORMAL SINUS RHYTHM LEFT AXIS DEVIATION RIGHT BUNDLE BRANCH BLOCK ABNORMAL ECG WHEN COMPARED WITH ECG OF 11-SEP-2018 08:54, NO SIGNIFICANT CHANGE WAS FOUND Confirmed by LINDSEY FAUSTIN, ROSALEE ([id number]) on 09/16/2018 7:18:52 PM Referred By: Confirmed By:ROSALEE PORTILLO MD
--- NOTE | 2018-09-16 19:53 | PATH ---
Surgical Pathology Report Patient Name: MARK JOHNSTON [facility]. Rec. #: [id number] /Age/Gender: 1950 (Age: 67) / M Account: [id number] Location: [address] [place] [address] Taken: 09/14/2018 Received: 09/14/2018 Reported: 09/16/2018 Physicians: Araceli Wheeler MD Specimen(s) Received 2 GREEN TOPS Clinical History Macrocytic anemia Final Diagnosis COMPREHENSIVE FLOW CYTOMETRY performed and interpreted at [facility], [place], [place] ([id number]) shows the following: INTERPRETATION: The monocytic cells are 22% of total events, see comment. There is no evidence of B or T-cell proliferative disorders or increased blasts. COMMENT: Correlation with relevant clinical and laboratory data is essential. Evaluation for persistent monocytosis is suggested. See [facility] report ([id number]) for additional details. Electronically Signed Ximena Bazzi M.D. Addendum Reported: 09/22/2018 Addendum Diagnosis JAK2 ([id number]) MUTATION ANALYSIS BY PCR performed and interpreted at [facility], [place], [place] ([id number]) shows the following: RESULTS: JAK2 V617F Mutation Status: Not Detected. INTERPRETATION: Negative for JAK2 (V617F) Mutation. See [facility] report ([id number]) for additional details. Ximena Bazzi M.D.
[2018-09-16] MEDS ORDERED: PT OWN MED DRAWER 7, Y5N ONE (21:21)
[2018-09-16] MEDS ORDERED: SENNOSIDES 8.6MG TABLET (FP) PO SCH (22:00)
[2018-09-16] MEDS: ATORVASTATIN CA 40 MG TABLET (FP) PO SCH (23:09)
[2018-09-17] MEDS: GABAPENTIN 100 MG CAPSULE (FP) PO SCH ×2 (06:35→21:15)
[2018-09-17] MEDS: FUROSEMIDE 40 MG/4 ML INJECTABLE VIAL IVPUSH SCH ×2 (06:35→14:55)
[2018-09-17] MEDS: INSULIN SLIDING SCALE (NOVOLOG) 1 VIAL SQ SCH ×4 (06:45→21:14)
[2018-09-17] MEDS: LEVOTHYROXINE NA 25 MCG TABLET (FP) PO SCH (06:47)
[2018-09-17] MEDS: ALBUTEROL SO4 2.5/IPRATROPIUM 0.5 INH SOL 3 ML VIAL.NEB. NEB SCH ×4 (07:57→19:58)
[2018-09-17 08:24] LABS: BASO % 0.4 % (0-2.0); EOS % 0.9 % (0-4.5); HEMATOCRIT 21.4 % (35.4-49); LYMPH % 11.2 % (8-40); MCH 33.8 pg (25.7-33.7); MCHC 32.8 g/dl (32.0-35.9); MEAN CELL VOLUME 103.2 fl (80-96); MEAN PLT VOLUME 10.2 fl (7.5-11.1); MONO % 31.8 % (3.8-10.2); NEUT % 55.7 % (42.8-82.8); PLATELET COUNT 166 K/MM3 (134-434); RBC 2.07 M/mm3 (4.00-5.60); RDW 22.4 % (11.9-15.9); WHITE BLOOD COUNT 5.2 K/mm3 (4.0-10.0)
[2018-09-17 08:56] LABS: ALBUMIN 2.4 g/dl (3.4-5.0); ALK PHOS 70 U/L (45-117); ANION GAP 5 MMOL/L (8-16); BILIRUBIN,TOTAL 0.4 mg/dL (0.2-1); BLOOD UREA NITROGEN 59 mg/dL (7-18); CALCIUM 7.6 mg/dL (8.5-10.1); CHLORIDE 102 mmol/L (98-107); CO2 34 mmol/L (21-32); GLUCOSE,RANDOM 134 mg/dL (74-106); MAGNESIUM 1.3 mg/dL (1.8-2.4); SGOT/AST 19 U/L (15-37); SGPT/ALT 30 U/L (13-61); SODIUM 141 mmol/L (136-145); TOT PROT 5.3 g/dl (6.4-8.2)
[2018-09-17] MEDS ORDERED: PT OWN MED DRAWER 7, Y5N ONE (09:12)
[2018-09-17] MEDS: hydrALAZINE HCL 25 MG TABLET (FP) PO SCH ×2 (09:22→21:15)
[2018-09-17] MEDS: PANTOPRAZOLE 40 MG TABLET (FP) PO SCH (09:22)
[2018-09-17] MEDS: BUDESONIDE/FORMETEROL FUMARATE 160/4.5 mcg INHALER IH SCH ×2 (09:22→21:39)
[2018-09-17] MEDS: TAMSULOSIN HCL 0.4 MG CAP PO SCH (09:22)
[2018-09-17] MEDS: MULTIVITAMINS (DAILY MVI) TABLET (FP) PO SCH (09:22)
[2018-09-17] MEDS: ASPIRIN COATED 81 MG TABLET.EC PO SCH (09:23)
[2018-09-17] MEDS: LOSARTAN POTASSIUM 25 MG TABLET PO SCH (09:23)
[2018-09-17] MEDS: CYANOCOBALAMIN 1,000 MCG TABLET (FP) PO SCH (09:23)
[2018-09-17] MEDS: ISOSORBIDE MONONITRATE 30 MG TAB.SR.24H (FP) PO SCH (09:23)
[2018-09-17] MEDS: HEPARIN NA (PORCINE) 5,000 UNITS/ML 1ML VIAL SQ SCH (09:23)
[2018-09-17] MEDS ORDERED: POLYETHYLENE GLYCOL 3350 119 GM BTL PO SCH (10:00)
[2018-09-17 11:03] LABS: ANISOCYTOSIS 1+; MACROCYTOSIS 0; PLATELET ESTIMATE NORMAL
[2018-09-17] MEDS ORDERED: MAGNESIUM SULF 50% (8.12 MEQ/2 ML-1 GM VIAL) IVPB ONE (11:15)
--- NOTE | 2018-09-17 11:28 | PN ---
Physical Exam: SUBJECTIVE: Patient seen and examined at the bedside. OBJECTIVE: Vital Signs Period Temp Pulse Resp BP Sys/Stoner Pulse Ox Last 24 Hr 98.0 F-98.7 F 72-78 19-20 107-123/52-64 91-98 GENERAL: Awake, alert, and fully oriented, in no acute distress. HEAD: Normal with no signs of trauma. EYES: extraocular movements intact, sclera anicteric, conjunctiva clear. No lid lag. EARS, NOSE, THROAT: moist mucus membranes, nares patent, oropharynx clear without exudates NECK: Normal range of motion, supple without lymphadenopathy, JVD, or masses. LUNGS: diminished but mostly clear to auscultation, home oxygen dependent HEART: Regular rate and rhythm, normal S1 and S2 without murmur, rub or gallop. ABDOMEN: Protuberant, soft, nontender, normoactive bowel sounds, no guarding, no rebound, no masses. No hepatomegaly or splenomegaly. MUSCULOSKELETAL: Normal range of motion at all joints. No bony deformities or tenderness. No CVA tenderness. UPPER EXTREMITIES: No peripheral edema. LOWER EXTREMITIES: Left BKA (has prosthesis), right lwr ext non pitting edema. NEUROLOGICAL: No facial droop, tongue midline, normal speech PSYCHIATRIC: Cooperative. Good eye contact. Appropriate mood and affect. SKIN: Warm, dry, normal turgor, no rashes or lesions noted, normal capillary refill. Laboratory Results - last 24 hr 09/16/18 09/16/18 09/16/18 11:22 17:43 23:12 WBC RBC Hgb Hct MCV MCH MCHC RDW Plt Count MPV Absolute Neuts (auto) Neutrophils % Neutrophils % (Manual) Band Neutrophils % Lymphocytes % Lymphocytes % (Manual) Monocytes % Monocytes % (Manual) Eosinophils % Eosinophils % (Manual) Basophils % Basophils % (Manual) Myelocytes % (Man) Promyelocytes % (Man) Blast Cells % (Manual) Nucleated RBC % Metamyelocytes Hypochromia Platelet Estimate Polychromasia Poikilocytosis Anisocytosis Microcytosis Macrocytosis Fragmented RBCs Sodium Potassium Chloride Carbon Dioxide Anion Gap BUN Creatinine Creat Clearance w eGFR POC Glucometer 212 164 209 Random Glucose Calcium Magnesium Total Bilirubin AST ALT Alkaline Phosphatase Total Protein Albumin 09/17/18 09/17/18 09/17/18 06:44 07:15 07:15 WBC 5.2 RBC 2.07 L Hgb 7.0 L Hct 21.4 L MCV 103.2 H MCH 33.8 H MCHC 32.8 RDW 22.4 H Plt Count 166 MPV 10.2 Absolute Neuts (auto) 2.9 Neutrophils % 55.7 Neutrophils % (Manual) 56.8 Band Neutrophils % 0.0 Lymphocytes % 11.2 Lymphocytes % (Manual) 17.9 D Monocytes % 31.8 H Monocytes % (Manual) 21 H Eosinophils % 0.9 Eosinophils % (Manual) 0.0 D Basophils % 0.4 Basophils % (Manual) 0.0 Myelocytes % (Man) 1 D Promyelocytes % (Man) 0 Blast Cells % (Manual) 0 Nucleated RBC % 0 Metamyelocytes 3 H D Hypochromia 1+ Platelet Estimate Normal Polychromasia 1+ Poikilocytosis 0 Anisocytosis 1+ Microcytosis 1+ Macrocytosis 0 Fragmented RBCs 1+ Sodium 141 Potassium 4.0 Chloride 102 Carbon Dioxide 34 H Anion Gap 5 L BUN 59 H Creatinine 2.0 H Creat Clearance w eGFR 33.49 POC Glucometer 147 Random Glucose 134 H Calcium 7.6 L Magnesium 1.3 L Total Bilirubin 0.4 AST 19 ALT 30 Alkaline Phosphatase 70 Total Protein 5.3 L Albumin 2.4 L Active Medications Generic Name Dose Route Start Last Admin Trade Name Brenton PRN Reason Stop Dose Admin Albuterol/Ipratropium 1 amp 09/16/18 16:00 09/17/18 07:57 Duoneb - NEB 1 amp RQID [facility] Administration Aspirin 81 mg 09/17/18 10:00 09/17/18 09:23 Ecotrin - PO 81 mg DAILY [facility] Administration Atorvastatin Calcium 40 mg 09/16/18 22:00 09/16/18 23:09 Lipitor - PO 40 mg HS [facility] Administration Budesonide/Formoterol Fumarate 1 puff 09/16/18 22:00 09/17/18 09:22 Symbicort 160/4.5mcg - IH 1 puff BID A[facility]IO Administration Cyanocobalamin 1,000 mcg 09/17/18 10:00 09/17/18 09:23 Vitamin B12 - PO 1,000 mcg DAILY [facility] Administration Furosemide 40 mg 09/17/18 06:00 09/17/18 06:35 Lasix Injection - IVPUSH 40 mg BID@0600,1400 [facility] Administration Gabapentin 100 mg 09/16/18 22:00 09/17/18 06:35 Neurontin - PO 100 mg TID [facility] Administration Heparin Sodium (Porcine) 5,000 unit 09/16/18 22:00 09/17/18 09:23 Heparin - SQ 5,000 unit BID [facility] Administration Hydralazine HCl 25 mg 09/16/18 22:00 09/17/18 09:22 Apresoline - PO 25 mg BID [facility] Administration Insulin Aspart 1 vial 09/16/18 16:30 09/17/18 06:45 Novolog Vial Sliding Scale - SQ Not Given ACHS [facility] Protocol Isosorbide Mononitrate 30 mg 09/17/18 10:00 09/17/18 09:23 Imdur - PO 30 mg DAILY [facility] Administration Levothyroxine Sodium 25 mcg 09/17/18 07:00 09/17/18 06:47 Synthroid - PO 25 mcg DAILY@0700 [facility] Administration Losartan Potassium 25 mg 09/17/18 10:00 09/17/18 09:23 Cozaar - PO 25 mg DAILY [facility] Administration Magnesium Oxide 400 mg 09/17/18 22:00 Mag-Ox - PO BID [facility] Metoprolol Succinate 100 mg 09/17/18 10:00 09/17/18 09:23 Toprol Xl - PO 100 mg DAILY [facility] Administration Multivitamins/Minerals/Vitamin C 1 tab 09/17/18 10:00 09/17/18 09:22 Tab-A-Vit - PO 1 tab DAILY [facility] Administration Non-Formulary Medication 2 puff 09/16/18 22:00 Tiotropium Br/Olodaterol Hcl [Stiolto Respimat Inhal [place]] IH BID [facility] Pantoprazole Sodium 40 mg 09/17/18 10:00 09/17/18 09:22 Protonix - PO 40 mg DAILY [facility] Administration Polyethylene Glycol 17 gm 09/17/18 10:00 09/17/18 09:23 Miralax (For Daily Use) - PO Not Given DAILY [facility] Senna 1 tab 09/16/18 22:00 09/16/18 23:09 Senna - PO 1 tab HS [facility] Administration Tamsulosin HCl 0.4 mg 09/17/18 08:30 09/17/18 09:22 Flomax - PO 0.4 mg DAILY@0830 [facility] Administration imaging: Echo 05/30/2018 showed normal LV size, wall motion and systolic function. Normal RV. Borderline LA dilatation. Mild to moderate MR. No pericardial effusion. Echo 07/14/18 shows LV moderately dilated. LV systolic fx is mildly reduced. mild global hypokinesis of the LV. RV is normal in size and fx. moderate mitral regurg. mild to mod valvular aortic stenosis. Echo 09/12/2018: Dilated lv with segmental wall motion abnormality. reduced lv systolic fx. moderate to severe mitral regurg. right vent. is normal in sz and fx. mild pulmonary hypertension. ascites present. ASSESSMENT/PLAN: Patient is a 67 year old male with a past medical history of laryngeal cancer s/ p RT, chronic systolic CHF, BPH, chronic respiratory failure sec to COPD/CHF on 2L O2 via NC (recently discharged 09/05/18), active smoker, CKD 3, chronic anemia, hypertension, HLD, PAD s/p LBKA and hypothyroidism. He presents with increasing SOB worse over the past 3 days, exacerbated by exertion. Heme: Symptomatic anemia/anemia of chronic disease. S/p prbc transfusions, hmg/hct low stable. Would monitor daily and transfuse as needed patient presented with shortness of breath on admission. now improved with oxygen therapy, duonebs and prbc transfusion. Continue Protonix daily. hematology consulted Pulm: COPD exacerbation On Symbicort 160/4.5mcg 1 inh PO BID Stiolto Respimat Inhal [place] 2 puff IH BID Nebs PRN Patient started on oxygen therapy on last admission at 3 liters bibasal infiltrates on chest xray Card: Acute on chronic diastolic/systolic failure Presents with BNP of 40k. Echo 05/30/18 shows normal LV size, echo 07/14/18 shoes lv mod. dilated. repeated echo on this admission shows Dilated lv with segmental wall motion abnormality. reduced lv systolic fx. Patient on Metoprolol. was previously on an bebeto which was stopped 2/2 to ckd cardiology following. on Lasix 40mg IV BID. Weights 88kg>81kg with diuresis. Hypertension. chronic On Metoprolol succ. 100mg daily. Hydralazine BID Hld. chronic On Lipitor Psyche Current everyday smoker. Tobacco cessation discussed. refusing nicotine patch. Renal: MEENAKSHI on CKD BUN/Cr 66/2.7 -> 58/2.[address] Haley. pt for a renal biopsy as outpatient On procrit On a renal diet. Onc: Lung nodule Also noted was a 9mm lung nodule seen on chest CT of 05/31/[address]. Patient is following up at [facility] outpatient and had a recent pet scan with facility. He will continue to follow up outpatient. Endocrine: DM. monitor bgms, started novolog ss hmga1c 05/2018 6.0, hmg a1c 09/04/18 7.0. On SS Hypothyroidism Levothyroxine 25 mcg PO DAILY fen PO hydration adequate monitor electrolytes renal diet prophy heparin Visit type - Emergency Visit Emergency Visit: Yes ED Registration Date: 09/11/18 Care time: The patient presented to the Emergency Department on the above date and was hospitalized for further evaluation of their emergent condition. - New Patient This patient is new to me today: No - Critical Care Critical Care patient: No - Discharge Referral Referred to [facility] Med P.C.: No
--- NOTE | 2018-09-17 12:21 | CON.PULM ---
Consult Consult Specialty:: PULMONARY Referred by:: JACOB Reason for Consultation:: COPD - History of Present Illness Chief Complaint: SOB/AM COUGH/ACTIVE SMOKER History of Present Illness: 67 year-old man, smoker, with a PMHx of HTN, DM, PVD, hyperlipidemia s/p left BKA, mod-severe COPD, active smokre 9 mm RUL nodule, h/o laryngeal ca s/p XRT and chemohypothyroidism, CKD with nephrotic syndrome, anemia post transfusion and Venofer ? MDS, diastolic dysfunction with moderate , hypothyroidism presented to the ER with worsening SOB and RLE swelling, feels better after BD. Asked to eval due to COPD. - History Source History Provided By: Patient, Medical Record Limitations to Obtaining History: No Limitations - Past Medical History [employer]: No: Alzheimer's Cardio/Vascular: Yes: HTN. No: AFIB Pulmonary: Yes: COPD, O2 Dependent Gastrointestinal: No: Ascites Hepatobiliary: No: Cirrhosis Renal/: Yes: Renal Inusuff, Other (hyperkalemia) Heme/Onc: Yes: Anemia Endocrine: Yes: Diabetes Mellitus, Hypothyroidism - Past Surgical History Past Surgical History: Yes: Amputation (left bka) - Alcohol/Substance Use Hx Alcohol Use: No History of Substance Use: reports: None - Smoking History Smoking history: Current every day smoker Have you smoked in the past 12 months: Yes Aproximately how many cigarettes per day: 3 - Social History Usual Living Arrangement: Assisted Living ADL: Independent Place of : [facility] History of Recent Travel: No Home Medications - Allergies Allergies/Adverse Reactions: Allergies Allergy/AdvReac Type Severity Reaction Status Date / Time No Known Allergies Allergy Verified 09/11/18 08:46 - Home Medications Home Medications: Ambulatory Orders Cyanocobalamin [Vitamin B12 -] 1,000 mcg PO DAILY 07/13/18 Epoetin Blue [Procrit -] 20,000 unit IJ WEEKLY 07/13/18 Gabapentin [Neurontin -] 100 mg PO Q8H PRN 07/13/18 Levothyroxine [Synthroid -] 25 mcg PO DAILY 07/13/18 Metoprolol Succinate 100 mg PO DAILY 07/13/18 Pantoprazole Sodium 40 mg PO DAILY 07/13/18 Polyethylene Glycol 3350 [Laxaclear] 17 gm PO DAILY 07/13/18 Sennosides [Senna -] 1 tab PO HS 07/13/18 Silver Sulfadiazine 1% Top Cr [Silvadene -] 1 applic TP DAILY 07/13/18 Tamsulosin HCl [Flomax -] 0.4 mg PO DAILY 07/13/18 Tiotropium Br/Olodaterol HCl [Stiolto Respimat Inhal [place]] 2 puff IH BID Budesonide/Formeterol Fumarate [SYMBICORT 160/4.5mcg -] 1 inh PO BID 09/01/18 Multivitamins [Multivit ([facility] Formulary)] 1 tab PO DAILY 09/01/18 Tramadol HCl 50 mg PO BID PRN 09/01/18 Alcohol Antiseptic Pads [Alcohol Prep Pads] 1 each TP ACHS #1 box 09/04/18 Lancets [Lancets Thin] 1 each MC AC #1 box 09/04/18 Miscellaneous Medical Supply [Glucometer Device] 1 each SQ ASDIR #1 kit Miscellaneous Medical Supply [Glucometer Test Strips #100] 1 each SQ ASDIR #1 box 09/04/18 Albuterol 0.083% Nebulizer Najma [Ventolin 0.083% Nebulizer Soln -] 1 amp NEB QID #1 amp 09/05/18 Albuterol Sulfate Inhaler - [Ventolin Hfa Inhaler -] 1 puff IH Q6H #1 inhaler Sitagliptin Phosphate [Januvia -] 25 mg PO DAILY@0700 #90 tab 09/05/18 Atorvastatin Ca [Lipitor] 40 mg PO HS 09/11/18 Family Disease History - Family Disease History Family History: Unremarkable Review of Systems - Review of Systems Constitutional: denies: Fever Eyes: denies: Blurred Vision HENT: denies: Difficult Swallowing Neck: denies: Decreased ROM Cardiovascular: denies: Chest Pain Respiratory: reports: Cough, Exercise Intolerance, SOB, SOB on Exertion. denies : Hemoptysis Gastrointestinal: denies: Abdominal Pain Genitourinary: denies: Burning Breasts: reports: No Symptoms Reported Musculoskeletal: reports: No Symptoms Physical Exam Vital Sings: Vital Signs Temperature 98.2 F 09/17/18 09:00 Pulse Rate 78 09/17/18 09:00 Respiratory Rate 19 09/17/18 09:00 Blood Pressure 120/58 L 09/17/18 09:00 O2 Sat by Pulse Oximetry (%) 91 L 09/17/18 09:25 Constitutional: Yes: Calm Eyes: Yes: EOM Intact HENT: Yes: Normocephalic Neck: Yes: Trachea Midline Cardiovascular: Yes: Regular Rate and Rhythm Respiratory: Yes: Diminished Gastrointestinal: Yes: Normal Bowel Sounds Extremities: Yes: Other (left bka) Neurological: Yes: Alert Psychiatric: Yes: Alert Labs: CBC, BMP 09/17/18 07:15 09/17/18 07:15 ABG Results ABG pH 7.32 (7.35-7.45) L 09/11/18 15:28 ABG pCO2 at Pt Temp 37.5 mmHg (35-45) 09/11/18 15:28 ABG pO2 at Pt Temp 96.7 mmHg (80-100) 09/11/18 15:28 ABG HCO3 18.9 meq/L (22-26) L 09/11/18 15:28 ABG O2 Sat (Measured) 97.1 % (90-98.9) 09/11/18 15:28 ABG O2 Content 9.5 % vol (15-22) L* 09/11/18 15:28 ABG Base Excess -6.1 meq/l (-2-2) L 09/11/18 15:28 rest reviewed Imaging - Results Chest X-ray: Report Reviewed, Image Reviewed Cat Scan: Report Reviewed, Image Reviewed Problem List - Problems (1) BPH (benign prostatic hyperplasia) Code(s): N40.0 - BENIGN PROSTATIC HYPERPLASIA WITHOUT LOWER URINRY TRACT SYMP (2) COPD exacerbation Code(s): J44.1 - CHRONIC OBSTRUCTIVE PULMONARY DISEASE W (ACUTE) EXACERBATION (3) Dyslipidemia (high LDL; low HDL) Code(s): E78.5 - HYPERLIPIDEMIA, UNSPECIFIED (4) HTN (hypertension) Code(s): I10 - ESSENTIAL (PRIMARY) HYPERTENSION (5) Heart failure Code(s): I50.9 - HEART FAILURE, UNSPECIFIED Qualifiers: Heart failure type: combined systolic and diastolic Heart failure chronicity: acute on chronic Qualified Code(s): I50.43 - Acute on chronic combined systolic (congestive) and diastolic (congestive) heart failure (6) Nephrotic range proteinuria Code(s): R80.9 - PROTEINURIA, UNSPECIFIED (7) Non-insulin dependent type 2 diabetes mellitus Code(s): E11.9 - TYPE 2 DIABETES MELLITUS WITHOUT COMPLICATIONS (8) Shortness of breath Code(s): R06.02 - SHORTNESS OF BREATH (9) CKD (chronic kidney disease) Code(s): N18.9 - CHRONIC KIDNEY DISEASE, UNSPECIFIED Qualifiers: Chronic kidney disease stage: stage 3 (moderate) Qualified Code(s): N18.3 - Chronic kidney disease, stage 3 (moderate) (10) Anemia Code(s): D64.9 - ANEMIA, UNSPECIFIED Qualifiers: Anemia type: other cause Other causes of anemia: other cause, not classified Qualified Code(s): D64.89 - Other specified anemias (11) Cardiomyopathy as manifestation of underlying disease Code(s): I43 - CARDIOMYOPATHY IN DISEASES CLASSIFIED ELSEWHERE (12) Diastolic dysfunction Code(s): I51.9 - HEART DISEASE, UNSPECIFIED Assessment/Plan BRAGG to AE mod-severe copd, active smoker Acute on chronic diastolic/systolic failure Anemia CKD with proteinuria - nephrotic and h/o hyperkalemia HTN Type 2 DM hypothyroidism HLD high transaminases from hepatic congestion?- improving 9 mm RUL pulm nodule, 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 BKA O2 as ordered(patient has home o2 but uses it sparingly) duo neb ics/laba diuretics no need for systemic steroids at this time smoking cessation/encourage use of 02 R BLANCHE FAUSTIN
--- NOTE | 2018-09-17 14:03 | PN ---
Progress Note, Physician History of Present Illness: patient started to cough pul on board stable now - Current Medication List Current Medications: Active Medications Albuterol/Ipratropium (Duoneb -) 1 amp NEB RQID [facility] Last Admin: 09/17/18 11:30 Dose: 1 amp Aspirin (Ecotrin -) 81 mg PO DAILY [facility] Last Admin: 09/17/18 09:23 Dose: 81 mg Atorvastatin Calcium (Lipitor -) 40 mg PO HS [facility] Last Admin: 09/16/18 23:09 Dose: 40 mg Budesonide/Formoterol Fumarate (Symbicort 160/4.5mcg -) 1 puff IH BID [facility] Last Admin: 09/17/18 09:22 Dose: 1 puff Cyanocobalamin (Vitamin B12 -) 1,000 mcg PO DAILY [facility] Last Admin: 09/17/18 09:23 Dose: 1,000 mcg Furosemide (Lasix Injection -) 40 mg IVPUSH BID@0600,1400 [facility] Last Admin: 09/17/18 06:35 Dose: 40 mg Gabapentin (Neurontin -) 100 mg PO BID [facility] Hydralazine HCl (Apresoline -) 25 mg PO BID [facility] Last Admin: 09/17/18 09:22 Dose: 25 mg Insulin Aspart (Novolog Vial Sliding Scale -) 1 vial SQ ACHS [facility]; Protocol Last Admin: 09/17/18 11:52 Dose: 2 units Isosorbide Mononitrate (Imdur -) 30 mg PO DAILY [facility] Last Admin: 09/17/18 09:23 Dose: 30 mg Levothyroxine Sodium (Synthroid -) 25 mcg PO DAILY@0700 [facility] Last Admin: 09/17/18 06:47 Dose: 25 mcg Losartan Potassium (Cozaar -) 25 mg PO DAILY [facility] Last Admin: 09/17/18 09:23 Dose: 25 mg Magnesium Oxide (Mag-Ox -) 400 mg PO BID [facility] Metoprolol Succinate (Toprol Xl -) 100 mg PO DAILY [facility] Last Admin: 09/17/18 09:23 Dose: 100 mg Multivitamins/Minerals/Vitamin C (Tab-A-Vit -) 1 tab PO DAILY [facility] Last Admin: 09/17/18 09:22 Dose: 1 tab Pantoprazole Sodium (Protonix -) 40 mg PO DAILY [facility] Last Admin: 09/17/18 09:22 Dose: 40 mg Tamsulosin HCl (Flomax -) 0.4 mg PO DAILY@0830 [facility] Last Admin: 09/17/18 09:22 Dose: 0.4 mg - Objective Vital Signs: Vital Signs Temperature 98.2 F 09/17/18 09:00 Pulse Rate 78 09/17/18 09:00 Respiratory Rate 19 09/17/18 09:00 Blood Pressure 120/58 L 09/17/18 09:00 O2 Sat by Pulse Oximetry (%) 91 L 09/17/18 09:25 Constitutional: Yes: Calm, Mild Distress Cardiovascular: Yes: S1, S2 Respiratory: Yes: Regular, Poor Air Entry Gastrointestinal: Yes: Normal Bowel Sounds, Soft Musculoskeletal: Yes: WNL Extremities: Yes: Other Neurological: Yes: Alert, Oriented Psychiatric: Yes: Alert, Oriented Labs: CBC, BMP 09/17/18 07:15 09/17/18 07:15 INR, PTT INR 1.16 (0.83-1.09) H 09/14/18 05:30 Assessment/Plan Problem List - Problems (1) Nephrotic range proteinuria Code(s): R80.9 - PROTEINURIA, UNSPECIFIED (2) Heart failure Code(s): I50.9 - HEART FAILURE, UNSPECIFIED Qualifiers: Heart failure type: combined systolic and diastolic Heart failure chronicity: acute on chronic Qualified Code(s): I50.43 - Acute on chronic combined systolic (congestive) and diastolic (congestive) heart failure (3) CKD (chronic kidney disease) Code(s): N18.9 - CHRONIC KIDNEY DISEASE, UNSPECIFIED Qualifiers: Chronic kidney disease stage: stage 3 (moderate) Qualified Code(s): N18.3 - Chronic kidney disease, stage 3 (moderate) (4) Cardiomyopathy as manifestation of underlying disease Code(s): I43 - CARDIOMYOPATHY IN DISEASES CLASSIFIED ELSEWHERE (5) Hypothyroid Code(s): E03.9 - HYPOTHYROIDISM, UNSPECIFIED Qualifiers: Hypothyroidism type: unspecified Qualified Code(s): E03.9 - Hypothyroidism , unspecified plan continue current mgmt incentive jerad rest as per the team and cardio
--- NOTE | 2018-09-17 16:01 | PN ---
Progress Note, Physician Chief Complaint: Events noted Not in distress History of Present Illness: Patient was seen and examined. Awake and arousable. Chart was reviewed Denies chest pain, but with intermittent SOB - Current Medication List Current Medications: Active Medications Albuterol/Ipratropium (Duoneb -) 1 amp NEB RQID [facility] Last Admin: 09/17/18 11:30 Dose: 1 amp Aspirin (Ecotrin -) 81 mg PO DAILY [facility] Last Admin: 09/17/18 09:23 Dose: 81 mg Atorvastatin Calcium (Lipitor -) 40 mg PO HS [facility] Last Admin: 09/16/18 23:09 Dose: 40 mg Budesonide/Formoterol Fumarate (Symbicort 160/4.5mcg -) 1 puff IH BID [facility] Last Admin: 09/17/18 09:22 Dose: 1 puff Cyanocobalamin (Vitamin B12 -) 1,000 mcg PO DAILY [facility] Last Admin: 09/17/18 09:23 Dose: 1,000 mcg Furosemide (Lasix Injection -) 40 mg IVPUSH BID@0600,1400 [facility] Gabapentin (Neurontin -) 100 mg PO BID [facility] Hydralazine HCl (Apresoline -) 25 mg PO BID [facility] Last Admin: 09/17/18 09:22 Dose: 25 mg Insulin Aspart (Novolog Vial Sliding Scale -) 1 vial SQ ACHS [facility]; Protocol Last Admin: 09/17/18 11:52 Dose: 2 units Isosorbide Mononitrate (Imdur -) 30 mg PO DAILY [facility] Last Admin: 09/17/18 09:23 Dose: 30 mg Levothyroxine Sodium (Synthroid -) 25 mcg PO DAILY@0700 [facility] Last Admin: 09/17/18 06:47 Dose: 25 mcg Losartan Potassium (Cozaar -) 25 mg PO DAILY [facility] Last Admin: 09/17/18 09:23 Dose: 25 mg Magnesium Oxide (Mag-Ox -) 400 mg PO BID [facility] Metoprolol Succinate (Toprol Xl -) 100 mg PO DAILY [facility] Last Admin: 09/17/18 09:23 Dose: 100 mg Multivitamins/Minerals/Vitamin C (Tab-A-Vit -) 1 tab PO DAILY [facility] Last Admin: 09/17/18 09:22 Dose: 1 tab Pantoprazole Sodium (Protonix -) 40 mg PO DAILY [facility] Last Admin: 09/17/18 09:22 Dose: 40 mg Tamsulosin HCl (Flomax -) 0.4 mg PO DAILY@0830 [facility] Last Admin: 09/17/18 09:22 Dose: 0.4 mg - Objective Vital Signs: Vital Signs Temperature 98.6 F 09/17/18 15:01 Pulse Rate 71 09/17/18 15:01 Respiratory Rate 19 09/17/18 15:01 Blood Pressure 98/57 L 09/17/18 15:01 O2 Sat by Pulse Oximetry (%) 91 L 09/17/18 09:25 HENT: Yes: Atraumatic Neck: Yes: Supple Cardiovascular: Yes: Regular Rate and Rhythm, S1, S2 Respiratory: Yes: Diminished Gastrointestinal: Yes: Normal Bowel Sounds, Soft. No: Tenderness Extremities: Yes: Amputation Edema: Yes Labs: CBC, BMP 09/17/18 07:15 09/17/18 07:15 INR, PTT INR 1.16 (0.83-1.09) H 09/14/18 05:30 Problem List - Problems (1) COPD exacerbation Code(s): J44.1 - CHRONIC OBSTRUCTIVE PULMONARY DISEASE W (ACUTE) EXACERBATION (2) Dyslipidemia (high LDL; low HDL) Code(s): E78.5 - HYPERLIPIDEMIA, UNSPECIFIED (3) HTN (hypertension) Code(s): I10 - ESSENTIAL (PRIMARY) HYPERTENSION (4) Nephrotic range proteinuria Code(s): R80.9 - PROTEINURIA, UNSPECIFIED (5) Non-insulin dependent type 2 diabetes mellitus Code(s): E11.9 - TYPE 2 DIABETES MELLITUS WITHOUT COMPLICATIONS (6) Shortness of breath Code(s): R06.02 - SHORTNESS OF BREATH (7) CKD (chronic kidney disease) Code(s): N18.9 - CHRONIC KIDNEY DISEASE, UNSPECIFIED Qualifiers: Chronic kidney disease stage: stage 3 (moderate) Qualified Code(s): N18.3 - Chronic kidney disease, stage 3 (moderate) (8) Anemia Code(s): D64.9 - ANEMIA, UNSPECIFIED Qualifiers: Anemia type: other cause Other causes of anemia: other cause, not classified Qualified Code(s): D64.89 - Other specified anemias (9) Diastolic dysfunction Code(s): I51.9 - HEART DISEASE, UNSPECIFIED (10) Mitral valve regurgitation Code(s): I34.0 - NONRHEUMATIC MITRAL (VALVE) INSUFFICIENCY Assessment/Plan 1. BRAGG due to acute exacerbation of moderate -severe COPD 2. Acute on chronic diastolic/systolic failure 3. Anemia post transfusion, ? MDS vs multiple myeloma 4. CKD with proteinuria - nephrotic and history of hyperkalemia 5. HTN 6. Type 2 DM 7. hypothyroidism 8. Hypercholesterolemia 9. Abnormal LFT from hepatic congestion 10. Pulmonary nodule and history of laryngeal cancer s/p XRT and chemotherapy 11. Left BKA PLAN: 1. Continue IV diuresis with monitor renal function and electrolytes 2. Continue bronchodilators, inhaled steroids, O2 as needed and completed empiric antibiotic course 3. Continue ASA 81 qd, Lipitor 40 qhs, Losartan 25 mg QD, Hydralazine 25 mg BID and Toprol XL 75 mg QD as tolerated Further plans are to follow Aman Zavala MD
--- NOTE | 2018-09-17 16:47 | PN ---
Progress Note, Physician History of Present Illness: Pt seen and examined at bedside. He is able to fit his amputated leg into his prosthesis now. - Current Medication List Current Medications: Active Medications Albuterol/Ipratropium (Duoneb -) 1 amp NEB RQID [facility] Last Admin: 09/17/18 16:15 Dose: 1 amp Aspirin (Ecotrin -) 81 mg PO DAILY [facility] Last Admin: 09/17/18 09:23 Dose: 81 mg Atorvastatin Calcium (Lipitor -) 40 mg PO HS [facility] Last Admin: 09/16/18 23:09 Dose: 40 mg Budesonide/Formoterol Fumarate (Symbicort 160/4.5mcg -) 1 puff IH BID [facility] Last Admin: 09/17/18 09:22 Dose: 1 puff Cyanocobalamin (Vitamin B12 -) 1,000 mcg PO DAILY [facility] Last Admin: 09/17/18 09:23 Dose: 1,000 mcg Furosemide (Lasix Injection -) 40 mg IVPUSH BID@0600,1400 [facility] Gabapentin (Neurontin -) 100 mg PO BID [facility] Hydralazine HCl (Apresoline -) 25 mg PO BID [facility] Last Admin: 09/17/18 09:22 Dose: 25 mg Insulin Aspart (Novolog Vial Sliding Scale -) 1 vial SQ ACHS [facility]; Protocol Last Admin: 09/17/18 11:52 Dose: 2 units Isosorbide Mononitrate (Imdur -) 30 mg PO DAILY [facility] Last Admin: 09/17/18 09:23 Dose: 30 mg Levothyroxine Sodium (Synthroid -) 25 mcg PO DAILY@0700 [facility] Last Admin: 09/17/18 06:47 Dose: 25 mcg Losartan Potassium (Cozaar -) 25 mg PO DAILY [facility] Last Admin: 09/17/18 09:23 Dose: 25 mg Magnesium Oxide (Mag-Ox -) 400 mg PO BID [facility] Metoprolol Succinate (Toprol Xl -) 100 mg PO DAILY [facility] Last Admin: 09/17/18 09:23 Dose: 100 mg Multivitamins/Minerals/Vitamin C (Tab-A-Vit -) 1 tab PO DAILY [facility] Last Admin: 09/17/18 09:22 Dose: 1 tab Pantoprazole Sodium (Protonix -) 40 mg PO DAILY [facility] Last Admin: 09/17/18 09:22 Dose: 40 mg Tamsulosin HCl (Flomax -) 0.4 mg PO DAILY@0830 [facility] Last Admin: 09/17/18 09:22 Dose: 0.4 mg - Objective Vital Signs: Vital Signs Temperature 98.6 F 09/17/18 15:01 Pulse Rate 71 09/17/18 15:01 Respiratory Rate 19 09/17/18 15:01 Blood Pressure 98/57 L 09/17/18 15:01 O2 Sat by Pulse Oximetry (%) 91 L 09/17/18 09:25 Constitutional: Yes: Calm Eyes: Yes: Conjunctiva Clear HENT: Yes: Atraumatic Neck: Yes: Supple Cardiovascular: Yes: S1, S2 Respiratory: Yes: On Nasal O2 Gastrointestinal: Yes: Soft Edema: Yes Neurological: Yes: Oriented Psychiatric: Yes: Oriented Labs: CBC, BMP 09/17/18 07:15 09/17/18 07:15 INR, PTT INR 1.16 (0.83-1.09) H 09/14/18 05:30 Problem List - Problems (1) COPD exacerbation Code(s): J44.1 - CHRONIC OBSTRUCTIVE PULMONARY DISEASE W (ACUTE) EXACERBATION (2) Heart failure Code(s): I50.9 - HEART FAILURE, UNSPECIFIED Qualifiers: Heart failure type: combined systolic and diastolic Heart failure chronicity: acute on chronic Qualified Code(s): I50.43 - Acute on chronic combined systolic (congestive) and diastolic (congestive) heart failure (3) Nephrotic range proteinuria Code(s): R80.9 - PROTEINURIA, UNSPECIFIED (4) CKD (chronic kidney disease) Code(s): N18.9 - CHRONIC KIDNEY DISEASE, UNSPECIFIED Qualifiers: Chronic kidney disease stage: stage 3 (moderate) Qualified Code(s): N18.3 - Chronic kidney disease, stage 3 (moderate) Assessment/Plan Current Medications Generic Name Dose Route Start Last Admin Trade Name Freq PRN Reason Stop Dose Admin Albuterol/Ipratropium 1 amp 09/16/18 16:00 09/17/18 16:15 Duoneb - NEB 1 amp RQID [facility] Administration Aspirin 81 mg 09/17/18 10:00 09/17/18 09:23 Ecotrin - PO 81 mg DAILY [facility] Administration Atorvastatin Calcium 40 mg 09/16/18 22:00 09/16/18 23:09 Lipitor - PO 40 mg HS [facility] Administration Budesonide/Formoterol Fumarate 1 puff 09/16/18 22:00 09/17/18 09:22 Symbicort 160/4.5mcg - IH 1 puff BID [facility] Administration Cyanocobalamin 1,000 mcg 09/17/18 10:00 09/17/18 09:23 Vitamin B12 - PO 1,000 mcg DAILY [facility] Administration Furosemide 40 mg 09/18/18 06:00 Lasix Injection - IVPUSH BID@0600,1400 [facility] Gabapentin 100 mg 09/17/18 22:00 Neurontin - PO BID [facility] Hydralazine HCl 25 mg 09/16/18 22:00 09/17/18 09:22 Apresoline - PO 25 mg BID [facility] Administration Insulin Aspart 1 vial 09/16/18 16:30 09/17/18 11:52 Novolog Vial Sliding Scale - SQ 2 units ACHS [facility] Administration Protocol Isosorbide Mononitrate 30 mg 09/17/18 10:00 09/17/18 09:23 Imdur - PO 30 mg DAILY [facility] Administration Levothyroxine Sodium 25 mcg 09/17/18 07:00 09/17/18 06:47 Synthroid - PO 25 mcg DAILY@0700 [facility] Administration Losartan Potassium 25 mg 09/17/18 10:00 09/17/18 09:23 Cozaar - PO 25 mg DAILY [facility] Administration Magnesium Oxide 400 mg 09/17/18 22:00 Mag-Ox - PO BID [facility] Metoprolol Succinate 100 mg 09/17/18 10:00 09/17/18 09:23 Toprol Xl - PO 100 mg DAILY [facility] Administration Multivitamins/Minerals/Vitamin C 1 tab 09/17/18 10:00 09/17/18 09:22 Tab-A-Vit - PO 1 tab DAILY [facility] Administration Pantoprazole Sodium 40 mg 09/17/18 10:00 09/17/18 09:22 Protonix - PO 40 mg DAILY [facility] Administration Tamsulosin HCl 0.4 mg 09/17/18 08:30 09/17/18 09:22 Flomax - PO 0.4 mg DAILY@0830 [facility] Administration Impression 1. CKD 2. anemia 3. history of hyperkalemia 4. HTN 5. DM 6. hypothyroidism 7. HLD 8. copd 9. proteinuria - nephrotic 10. active smoker 11. fluid overload Plan - monitor on losartan - cont lasix - monitor renal function - volume status improving - myeloma workup - refusing kidney biopsy at this point - will follow Dr Haley
[2018-09-17] MEDS ORDERED: INSULIN (NOVOLOG) ASPART 100 UNITS/ML 10ML VIAL ONE (20:57)
[2018-09-17] MEDS: ATORVASTATIN CA 40 MG TABLET (FP) PO SCH (21:15)
[2018-09-17] MEDS: MAGNESIUM OXIDE 400 MG TABLET (FP) PO SCH (21:39)
--- NOTE | 2018-09-17 21:57 | PN ---
Progress Note (short form) - Note Progress Note: Patient seen in follow up. No new complaints. No significant events overnight. Still breathless on exertion, but overall improving. Inpatient Meds reviewed. Current Medications Generic Name Dose Route Start Last Admin Trade Name Brenton PRN Reason Stop Dose Admin Albuterol/Ipratropium 1 amp 09/16/18 16:00 09/17/18 19:58 Duoneb - NEB 1 amp RQID [facility] Administration Aspirin 81 mg 09/17/18 10:00 09/17/18 09:23 Ecotrin - PO 81 mg DAILY [facility] Administration Atorvastatin Calcium 40 mg 09/16/18 22:00 09/17/18 21:15 Lipitor - PO 40 mg HS [facility] Administration Budesonide/Formoterol Fumarate 1 puff 09/16/18 22:00 09/17/18 21:39 Symbicort 160/4.5mcg - IH 1 puff BID [facility] Administration Cyanocobalamin 1,000 mcg 09/17/18 10:00 09/17/18 09:23 Vitamin B12 - PO 1,000 mcg DAILY [facility] Administration Furosemide 40 mg 09/18/18 06:00 Lasix Injection - IVPUSH BID@0600,1400 [facility] Gabapentin 100 mg 09/17/18 22:00 09/17/18 21:15 Neurontin - PO 100 mg BID [facility] Administration Hydralazine HCl 25 mg 09/16/18 22:00 09/17/18 21:15 Apresoline - PO 25 mg BID [facility] Administration Insulin Aspart 1 vial 09/16/18 16:30 09/17/18 21:14 Novolog Vial Sliding Scale - SQ 2 units ACHS [facility] Administration Protocol Isosorbide Mononitrate 30 mg 09/17/18 10:00 09/17/18 09:23 Imdur - PO 30 mg DAILY [facility] Administration Levothyroxine Sodium 25 mcg 09/17/18 07:00 09/17/18 06:47 Synthroid - PO 25 mcg DAILY@0700 [facility] Administration Losartan Potassium 25 mg 09/17/18 10:00 09/17/18 09:23 Cozaar - PO 25 mg DAILY [facility] Administration Magnesium Oxide 400 mg 09/17/18 22:00 09/17/18 21:39 Mag-Ox - PO 400 mg BID [facility] Administration Metoprolol Succinate 75 mg 09/17/18 17:15 09/17/18 17:36 Toprol Xl - PO Not Given DAILY [facility] Multivitamins/Minerals/Vitamin C 1 tab 09/17/18 10:00 09/17/18 09:22 Tab-A-Vit - PO 1 tab DAILY [facility] Administration Pantoprazole Sodium 40 mg 09/17/18 10:00 09/17/18 09:22 Protonix - PO 40 mg DAILY [facility] Administration Tamsulosin HCl 0.4 mg 09/17/18 08:30 09/17/18 09:22 Flomax - PO 0.4 mg DAILY@0830 [facility] Administration On Examination: Last Vital Signs Temp Pulse Resp BP Pulse Ox 98.6 F 70 19 97/55 L 91 L 09/17/18 17:20 09/17/18 17:20 09/17/18 17:20 09/17/18 17:20 09/17/18 09:25 General: In no acute distress, lying comfortably in bed. Extremities: No pallor or icterus. No pedal edema. No palpable lymphadenopathy. Chest: breathing comfortably Abdomen: Non-distended, non-tender, no palpable organomegaly. Neuro: Alert, oriented, non-focal. Labs: CBC, BMP 09/17/18 07:15 09/17/18 07:15 Assessment. Marked macrocytic anemia of unclear etiology. Usual causes for macrocytosis ruled out. Suspect anemia not solely attributable to renal impairment - high index of suspicion for a myelodysplastic lesion. Will offer bone marrow biopsy when recovered from acute respiratory issue.
[2018-09-18] MEDS: INSULIN SLIDING SCALE (NOVOLOG) 1 VIAL SQ SCH ×4 (06:15→21:21)
[2018-09-18] MEDS: FUROSEMIDE 40 MG/4 ML INJECTABLE VIAL IVPUSH SCH ×2 (06:17→13:33)
[2018-09-18] MEDS: LEVOTHYROXINE NA 25 MCG TABLET (FP) PO SCH (06:48)
[2018-09-18] MEDS: ALBUTEROL SO4 2.5/IPRATROPIUM 0.5 INH SOL 3 ML VIAL.NEB. NEB SCH ×4 (07:30→20:35)
[2018-09-18] MEDS: PATIENT'S OWN MEDICATION (NON-FORMULARY) (Tiotropium Br/Olodaterol Hcl [Stiolto Respimat I IH SCH ×2 (07:34→07:35)
[2018-09-18 08:51] LABS: BASO % 1.1 % (0-2.0); EOS % 0.9 % (0-4.5); HEMATOCRIT 22.1 % (35.4-49); HEMOGLOBIN 7.1 GM/dL (11.7-16.9); LYMPH % 11.3 % (8-40); MCH 33.7 pg (25.7-33.7); MCHC 32.2 g/dl (32.0-35.9); MEAN CELL VOLUME 104.7 fl (80-96); MEAN PLT VOLUME 10.5 fl (7.5-11.1); MONO % 32.3 % (3.8-10.2); NEUT % 54.4 % (42.8-82.8); PLATELET COUNT 168 K/MM3 (134-434); RBC 2.11 M/mm3 (4.00-5.60)
[2018-09-18 09:27] LABS: ALBUMIN 2.7 g/dl (3.4-5.0); ALK PHOS 74 U/L (45-117); ANION GAP 4 MMOL/L (8-16); BILIRUBIN,TOTAL 0.4 mg/dL (0.2-1); BLOOD UREA NITROGEN 64 mg/dL (7-18); CALCIUM 7.8 mg/dL (8.5-10.1); CHLORIDE 108 mmol/L (98-107); CO2 32 mmol/L (21-32); CREATININE 2.3 mg/dL (0.55-1.3); GLUCOSE,RANDOM 147 mg/dL (74-106); MAGNESIUM 1.7 mg/dL (1.8-2.4); POTASSIUM 4.4 mmol/L (3.5-5.1); SGOT/AST 18 U/L (15-37); SGPT/ALT 32 U/L (13-61); SODIUM 143 mmol/L (136-145); TOT PROT 5.9 g/dl (6.4-8.2)
[2018-09-18] MEDS ORDERED: PT OWN MED DRAWER 7, Y5N ONE ×3 (09:46→18:56)
--- NOTE | 2018-09-18 09:49 | PN ---
Progress Note, Physician Chief Complaint: No new events History of Present Illness: Patient was seen and examined. Awake and arousable. Chart was reviewed - Current Medication List Current Medications: Active Medications Albuterol/Ipratropium (Duoneb -) 1 amp NEB RQID [facility] Last Admin: 09/18/18 07:30 Dose: 1 amp Aspirin (Ecotrin -) 81 mg PO DAILY [facility] Last Admin: 09/17/18 09:23 Dose: 81 mg Atorvastatin Calcium (Lipitor -) 40 mg PO HS [facility] Last Admin: 09/17/18 21:15 Dose: 40 mg Budesonide/Formoterol Fumarate (Symbicort 160/4.5mcg -) 1 puff IH BID [facility] Last Admin: 09/17/18 21:39 Dose: 1 puff Cyanocobalamin (Vitamin B12 -) 1,000 mcg PO DAILY [facility] Last Admin: 09/17/18 09:23 Dose: 1,000 mcg Furosemide (Lasix Injection -) 40 mg IVPUSH BID@0600,1400 [facility] Last Admin: 09/18/18 06:17 Dose: 40 mg Gabapentin (Neurontin -) 100 mg PO BID [facility] Last Admin: 09/17/18 21:15 Dose: 100 mg Hydralazine HCl (Apresoline -) 25 mg PO BID [facility] Last Admin: 09/17/18 21:15 Dose: 25 mg Insulin Aspart (Novolog Vial Sliding Scale -) 1 vial SQ ACHS [facility]; Protocol Last Admin: 09/18/18 06:15 Dose: 2 units Isosorbide Mononitrate (Imdur -) 30 mg PO DAILY [facility] Last Admin: 09/17/18 09:23 Dose: 30 mg Levothyroxine Sodium (Synthroid -) 25 mcg PO DAILY@0700 [facility] Last Admin: 09/18/18 06:48 Dose: 25 mcg Losartan Potassium (Cozaar -) 25 mg PO DAILY [facility] Last Admin: 09/17/18 09:23 Dose: 25 mg Magnesium Oxide (Mag-Ox -) 400 mg PO BID [facility] Last Admin: 09/17/18 21:39 Dose: 400 mg Magnesium Sulfate (Magnesium Sulfate) 2 gm IVPB ONCE ONE Stop: 09/18/18 10:01 Metoprolol Succinate (Toprol Xl -) 75 mg PO DAILY [facility] Last Admin: 09/17/18 17:36 Dose: Not Given Multivitamins/Minerals/Vitamin C (Tab-A-Vit -) 1 tab PO DAILY [facility] Last Admin: 09/17/18 09:22 Dose: 1 tab Pantoprazole Sodium (Protonix -) 40 mg PO DAILY [facility] Last Admin: 09/17/18 09:22 Dose: 40 mg Tamsulosin HCl (Flomax -) 0.4 mg PO DAILY@0830 [facility] Last Admin: 09/17/18 09:22 Dose: 0.4 mg - Objective Vital Signs: Vital Signs Temperature 98.4 F 09/18/18 09:00 Pulse Rate 76 09/18/18 09:00 Respiratory Rate 18 09/18/18 09:00 Blood Pressure 117/75 09/18/18 09:00 O2 Sat by Pulse Oximetry (%) 99 09/17/18 21:00 HENT: Yes: Atraumatic Neck: Yes: Supple Cardiovascular: Yes: Regular Rate and Rhythm, S1, S2 Respiratory: Yes: Diminished Gastrointestinal: Yes: Normal Bowel Sounds, Soft. No: Tenderness Extremities: Yes: Amputation Edema: Yes Labs: CBC, BMP 09/18/18 08:30 09/18/18 08:30 INR, PTT INR 1.16 (0.83-1.09) H 09/14/18 05:30 Problem List - Problems (1) COPD exacerbation Code(s): J44.1 - CHRONIC OBSTRUCTIVE PULMONARY DISEASE W (ACUTE) EXACERBATION (2) Dyslipidemia (high LDL; low HDL) Code(s): E78.5 - HYPERLIPIDEMIA, UNSPECIFIED (3) HTN (hypertension) Code(s): I10 - ESSENTIAL (PRIMARY) HYPERTENSION (4) Mitral valve regurgitation Code(s): I34.0 - NONRHEUMATIC MITRAL (VALVE) INSUFFICIENCY (5) Nephrotic range proteinuria Code(s): R80.9 - PROTEINURIA, UNSPECIFIED (6) Non-insulin dependent type 2 diabetes mellitus Code(s): E11.9 - TYPE 2 DIABETES MELLITUS WITHOUT COMPLICATIONS (7) Shortness of breath Code(s): R06.02 - SHORTNESS OF BREATH (8) CKD (chronic kidney disease) Code(s): N18.9 - CHRONIC KIDNEY DISEASE, UNSPECIFIED Qualifiers: Chronic kidney disease stage: stage 3 (moderate) Qualified Code(s): N18.3 - Chronic kidney disease, stage 3 (moderate) (9) Anemia Code(s): D64.9 - ANEMIA, UNSPECIFIED Qualifiers: Anemia type: other cause Other causes of anemia: other cause, not classified Qualified Code(s): D64.89 - Other specified anemias (10) Diastolic dysfunction Code(s): I51.9 - HEART DISEASE, UNSPECIFIED (11) Hypothyroid Code(s): E03.9 - HYPOTHYROIDISM, UNSPECIFIED Qualifiers: Hypothyroidism type: unspecified Qualified Code(s): E03.9 - Hypothyroidism , unspecified Assessment/Plan 1. BRAGG due to acute exacerbation of moderate -severe COPD 2. Acute on chronic diastolic/systolic failure 3. Anemia post transfusion, ? MDS vs multiple myeloma 4. CKD with proteinuria - nephrotic and history of hyperkalemia 5. HTN 6. Type 2 DM 7. hypothyroidism 8. Hypercholesterolemia 9. Abnormal LFT from hepatic congestion 10. Pulmonary nodule and history of laryngeal cancer s/p XRT and chemotherapy 11. Left BKA PLAN: 1. Continue IV diuresis with monitor renal function and electrolytes 2. Continue bronchodilators, inhaled steroids, O2 as needed 3. Continue ASA 81 qd, Lipitor 40 qhs, Losartan 25 mg QD, Hydralazine 25 mg BID and Toprol XL 75 mg QD as tolerated Further plans are to follow Aman Zavala MD
[2018-09-18] MEDS ORDERED: MAGNESIUM SULF 50% (8.12 MEQ/2 ML-1 GM VIAL) ONE (09:52)
[2018-09-18 10:00] LABS: ANISOCYTOSIS 1+; MACROCYTOSIS 1+; PLATELET ESTIMATE NORMAL
[2018-09-18] MEDS ORDERED: MAGNESIUM SULF 50% (8.12 MEQ/2 ML-1 GM VIAL) IVPB ONE (10:00)
[2018-09-18] MEDS: TAMSULOSIN HCL 0.4 MG CAP PO SCH ×2 (10:23→10:41)
[2018-09-18] MEDS: PANTOPRAZOLE 40 MG TABLET (FP) PO SCH ×2 (10:23→10:41)
[2018-09-18] MEDS: GABAPENTIN 100 MG CAPSULE (FP) PO SCH ×3 (10:23→21:20)
[2018-09-18] MEDS: hydrALAZINE HCL 25 MG TABLET (FP) PO SCH ×3 (10:23→21:20)
[2018-09-18] MEDS: LOSARTAN POTASSIUM 25 MG TABLET PO SCH (10:24)
[2018-09-18] MEDS: CYANOCOBALAMIN 1,000 MCG TABLET (FP) PO SCH (10:24)
[2018-09-18] MEDS: BUDESONIDE/FORMETEROL FUMARATE 160/4.5 mcg INHALER IH SCH ×2 (10:25→22:09)
[2018-09-18] MEDS: MULTIVITAMINS (DAILY MVI) TABLET (FP) PO SCH ×2 (10:25→10:41)
[2018-09-18] MEDS: ASPIRIN COATED 81 MG TABLET.EC PO SCH ×2 (10:25→10:41)
[2018-09-18] MEDS: MAGNESIUM OXIDE 400 MG TABLET (FP) PO SCH ×2 (10:25→21:20)
[2018-09-18] MEDS: ISOSORBIDE MONONITRATE 30 MG TAB.SR.24H (FP) PO SCH (10:25)
[2018-09-18] MEDS ORDERED: INSULIN (NOVOLOG) ASPART 100 UNITS/ML 10ML VIAL ONE ×2 (11:22→21:06)
--- NOTE | 2018-09-18 13:01 | PN ---
Physical Exam: SUBJECTIVE: Patient seen and examined at the bedside. feels well, in no acute distress. had episode of wheezing this a.m. feels better now. OBJECTIVE: Vital Signs Period Temp Pulse Resp BP Sys/Stoner Pulse Ox Last 24 Hr 98.0 F-98.6 F 69-76 18-21 97-117/55-75 94-99 GENERAL: Awake, alert, and fully oriented, in no acute distress. HEAD: Normal with no signs of trauma. EYES: extraocular movements intact, sclera anicteric, conjunctiva clear. No lid lag. EARS, NOSE, THROAT: moist mucus membranes, nares patent, oropharynx clear without exudates NECK: Normal range of motion, supple without lymphadenopathy, JVD, or masses. LUNGS: diminished but mostly clear to auscultation, home oxygen dependent HEART: Regular rate and rhythm, normal S1 and S2 without murmur, rub or gallop. ABDOMEN: Protuberant, soft, nontender, normoactive bowel sounds, no guarding, no rebound, no masses. No hepatomegaly or splenomegaly. MUSCULOSKELETAL: Normal range of motion at all joints. No bony deformities or tenderness. No CVA tenderness. UPPER EXTREMITIES: No peripheral edema. LOWER EXTREMITIES: Left BKA (has prosthesis), right lwr ext non pitting edema. NEUROLOGICAL: No facial droop, tongue midline, normal speech PSYCHIATRIC: Cooperative. Good eye contact. Appropriate mood and affect. SKIN: Warm, dry, normal turgor, no rashes or lesions noted, normal capillary refill. Laboratory Results - last 24 hr 09/17/18 09/17/18 09/18/18 16:59 21:08 06:15 WBC RBC Hgb Hct MCV MCH MCHC RDW Plt Count MPV Absolute Neuts (auto) Neutrophils % Neutrophils % (Manual) Band Neutrophils % Lymphocytes % Lymphocytes % (Manual) Monocytes % Monocytes % (Manual) Eosinophils % Eosinophils % (Manual) Basophils % Basophils % (Manual) Myelocytes % (Man) Promyelocytes % (Man) Blast Cells % (Manual) Nucleated RBC % Metamyelocytes Hypochromia Platelet Estimate Platelet Comment Polychromasia Poikilocytosis Anisocytosis Microcytosis Macrocytosis Fragmented RBCs Sodium Potassium Chloride Carbon Dioxide Anion Gap BUN Creatinine Creat Clearance w eGFR POC Glucometer 191 160 155 Random Glucose Calcium Magnesium Total Bilirubin AST ALT Alkaline Phosphatase Total Protein Albumin 09/18/18 09/18/18 09/18/18 08:30 08:30 11:20 WBC 5.0 RBC 2.11 L Hgb 7.1 L Hct 22.1 L MCV 104.7 H MCH 33.7 MCHC 32.2 RDW 23.0 H Plt Count 168 MPV 10.5 Absolute Neuts (auto) 2.7 Neutrophils % 54.4 Neutrophils % (Manual) 61.8 Band Neutrophils % 0.0 Lymphocytes % 11.3 Lymphocytes % (Manual) 12.4 D Monocytes % 32.3 H Monocytes % (Manual) 23 H Eosinophils % 0.9 Eosinophils % (Manual) 2.1 D Basophils % 1.1 Basophils % (Manual) 1.0 D Myelocytes % (Man) 0 D Promyelocytes % (Man) 0 Blast Cells % (Manual) 0 Nucleated RBC % 0 Metamyelocytes 0 D Hypochromia 0 Platelet Estimate Normal Platelet Comment Present Polychromasia 0 Poikilocytosis 0 Anisocytosis 1+ Microcytosis 0 Macrocytosis 1+ Fragmented RBCs 1+ Sodium 143 Potassium 4.4 Chloride 108 H Carbon Dioxide 32 Anion Gap 4 L BUN 64 H Creatinine 2.3 H Creat Clearance w eGFR 28.50 POC Glucometer 201 Random Glucose 147 H Calcium 7.8 L Magnesium 1.7 L Total Bilirubin 0.4 AST 18 ALT 32 Alkaline Phosphatase 74 Total Protein 5.9 L Albumin 2.7 L Active Medications Generic Name Dose Route Start Last Admin Trade Name Freq PRN Reason Stop Dose Admin Aspirin 81 mg 09/17/18 10:00 09/18/18 10:41 Ecotrin - PO Not Given DAILY [facility] Atorvastatin Calcium 40 mg 09/16/18 22:00 09/17/18 21:15 Lipitor - PO 40 mg HS [facility] Administration Budesonide/Formoterol Fumarate 1 puff 09/16/18 22:00 09/18/18 10:25 Symbicort 160/4.5mcg - IH 1 puff BID [facility] Administration Cyanocobalamin 1,000 mcg 09/17/18 10:00 09/18/18 10:24 Vitamin B12 - PO 1,000 mcg DAILY [facility] Administration Furosemide 40 mg 09/18/18 06:00 09/18/18 06:17 Lasix Injection - IVPUSH 40 mg BID@0600,1400 [facility] Administration Gabapentin 100 mg 09/17/18 22:00 09/18/18 10:41 Neurontin - PO Not Given BID [facility] Hydralazine HCl 25 mg 09/16/18 22:00 09/18/18 10:41 Apresoline - PO Not Given BID [facility] Insulin Aspart 1 vial 09/16/18 16:30 09/18/18 11:22 Novolog Vial Sliding Scale - SQ 4 units ACHS [facility] Administration Protocol Isosorbide Mononitrate 30 mg 09/17/18 10:00 09/18/18 10:25 Imdur - PO 30 mg DAILY [facility] Administration Levothyroxine Sodium 25 mcg 09/17/18 07:00 09/18/18 06:48 Synthroid - PO 25 mcg DAILY@0700 [facility] Administration Losartan Potassium 25 mg 09/17/18 10:00 09/18/18 10:24 Cozaar - PO 25 mg DAILY [facility] Administration Magnesium Oxide 400 mg 09/17/18 22:00 09/18/18 10:25 Mag-Ox - PO 400 mg BID [facility] Administration Metoprolol Succinate 75 mg 09/17/18 17:15 09/18/18 10:24 Toprol Xl - PO 75 mg DAILY [facility] Administration Multivitamins/Minerals/Vitamin C 1 tab 09/17/18 10:00 09/18/18 10:41 Tab-A-Vit - PO Not Given DAILY [facility] Pantoprazole Sodium 40 mg 09/17/18 10:00 09/18/18 10:41 Protonix - PO Not Given DAILY [facility] Tamsulosin HCl 0.4 mg 09/17/18 08:30 09/18/18 10:41 Flomax - PO Not Given DAILY@0830 [facility] ASSESSMENT/PLAN: Patient is a 67 year old male with a past medical history of laryngeal cancer s/ p RT, chronic systolic CHF, BPH, chronic respiratory failure sec to COPD/CHF on 2L O2 via [place] (recently discharged 09/05/18), active smoker, CKD 3, chronic anemia, hypertension, HLD, PAD s/p LBKA and hypothyroidism. He presents with increasing SOB worse over the past 3 days, exacerbated by exertion. Heme: Symptomatic anemia/anemia of chronic disease. S/p prbc transfusions, hmg/hct low. will need transfusion if <7. Followed by hematology. Patient for possible bone marrow biopsy outpatient. CBC to be monitored daily. Pulm: COPD exacerbation. On bronchodilators (symbicort, stiolto/respimat/inhal spray) . nebs ordered. maintain oxygen >95. Home oxygen dependent. Chest xray 09/17 unchanged. Card: Acute on chronic diastolic/systolic failure Presents with BNP of 40k. Echos shows dilated LV with segmental wall motion. reduced lv systolic fx. On metoprolol. On Lasix 40mg bid. Weights 88kg>81kg with diuresis. Hypertension. chronic with episodes of hypotension. On Metoprolol succ. 100mg daily. Hydralazine BID. hold if systolic <100. Hld. chronic. On Lipitor Psyche Current everyday smoker. Tobacco cessation discussed. refusing nicotine patch. Renal: MEENAKSHI on CKD. 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 Haley. pt for a renal biopsy as outpatient On procrit. On a renal diet. Onc: Lung nodule. Patient has followed up at [facility] for lung nodule. Endocrine: DM. monitor bgms. novolog ss Hypothyroidism Levothyroxine 25 mcg PO DAILY fen PO hydration adequate monitor electrolytes renal diet prophy heparin Visit type - Emergency Visit Emergency Visit: Yes ED Registration Date: 09/11/18 Care time: The patient presented to the Emergency Department on the above date and was hospitalized for further evaluation of their emergent condition. - New Patient This patient is new to me today: No - Critical Care Critical Care patient: No - Discharge Referral Referred to [facility] Med [facility] No
--- NOTE | 2018-09-18 13:40 | PN ---
Progress Note, Physician History of Present Illness: Pt seen and examined at bedside. He is awake and alert. He feels that his edema is improving. - Current Medication List Current Medications: Active Medications Albuterol/Ipratropium (Duoneb -) 1 amp NEB Q6H [facility] Aspirin (Ecotrin -) 81 mg PO DAILY [facility] Last Admin: 09/18/18 10:41 Dose: Not Given Atorvastatin Calcium (Lipitor -) 40 mg PO HS [facility] Last Admin: 09/17/18 21:15 Dose: 40 mg Budesonide/Formoterol Fumarate (Symbicort 160/4.5mcg -) 1 puff IH BID [facility] Last Admin: 09/18/18 10:25 Dose: 1 puff Cyanocobalamin (Vitamin B12 -) 1,000 mcg PO DAILY [facility] Last Admin: 09/18/18 10:24 Dose: 1,000 mcg Furosemide (Lasix Injection -) 40 mg IVPUSH BID@0600,1400 [facility] Last Admin: 09/18/18 13:33 Dose: 40 mg Gabapentin (Neurontin -) 100 mg PO BID [facility] Last Admin: 09/18/18 10:41 Dose: Not Given Hydralazine HCl (Apresoline -) 25 mg PO BID [facility] Last Admin: 09/18/18 10:41 Dose: Not Given Insulin Aspart (Novolog Vial Sliding Scale -) 1 vial SQ ACHS [facility]; Protocol Last Admin: 09/18/18 11:22 Dose: 4 units Isosorbide Mononitrate (Imdur -) 30 mg PO DAILY [facility] Last Admin: 09/18/18 10:25 Dose: 30 mg Levothyroxine Sodium (Synthroid -) 25 mcg PO DAILY@0700 [facility] Last Admin: 09/18/18 06:48 Dose: 25 mcg Losartan Potassium (Cozaar -) 25 mg PO DAILY [facility] Last Admin: 09/18/18 10:24 Dose: 25 mg Magnesium Oxide (Mag-Ox -) 400 mg PO BID [facility] Last Admin: 09/18/18 10:25 Dose: 400 mg Metoprolol Succinate (Toprol Xl -) 75 mg PO DAILY [facility] Last Admin: 09/18/18 10:24 Dose: 75 mg Multivitamins/Minerals/Vitamin C (Tab-A-Vit -) 1 tab PO DAILY [facility] Last Admin: 09/18/18 10:41 Dose: Not Given Pantoprazole Sodium (Protonix -) 40 mg PO DAILY [facility] Last Admin: 09/18/18 10:41 Dose: Not Given Tamsulosin HCl (Flomax -) 0.4 mg PO DAILY@0830 [facility] Last Admin: 09/18/18 10:41 Dose: Not Given - Objective Vital Signs: Vital Signs Temperature 98.4 F 09/18/18 09:00 Pulse Rate 76 09/18/18 09:00 Respiratory Rate 18 09/18/18 09:00 Blood Pressure 117/75 09/18/18 09:00 O2 Sat by Pulse Oximetry (%) 94 L 09/18/18 10:00 Constitutional: Yes: Calm Eyes: Yes: Conjunctiva Clear HENT: Yes: Atraumatic Neck: Yes: Supple Cardiovascular: Yes: S1, S2 Respiratory: Yes: On Nasal O2, Wheezes Gastrointestinal: Yes: Soft Genitourinary: Yes: WNL Musculoskeletal: Yes: WNL Extremities: Yes: Other (left bka) Edema: RLE: 1+ Neurological: Yes: Oriented Psychiatric: Yes: Oriented Labs: CBC, BMP 09/18/18 08:30 09/18/18 08:30 INR, PTT INR 1.16 (0.83-1.09) H 09/14/18 05:30 Problem List - Problems (1) COPD exacerbation Code(s): J44.1 - CHRONIC OBSTRUCTIVE PULMONARY DISEASE W (ACUTE) EXACERBATION (2) Heart failure Code(s): I50.9 - HEART FAILURE, UNSPECIFIED Qualifiers: Heart failure type: combined systolic and diastolic Heart failure chronicity: acute on chronic Qualified Code(s): I50.43 - Acute on chronic combined systolic (congestive) and diastolic (congestive) heart failure (3) Nephrotic range proteinuria Code(s): R80.9 - PROTEINURIA, UNSPECIFIED (4) CKD (chronic kidney disease) Code(s): N18.9 - CHRONIC KIDNEY DISEASE, UNSPECIFIED Qualifiers: Chronic kidney disease stage: stage 3 (moderate) Qualified Code(s): N18.3 - Chronic kidney disease, stage 3 (moderate) Assessment/Plan Current Medications Generic Name Dose Route Start Last Admin Trade Name Freq PRN Reason Stop Dose Admin Albuterol/Ipratropium 1 amp 09/18/18 13:01 Duoneb - NEB Q6H [facility] Aspirin 81 mg 09/17/18 10:00 09/18/18 10:41 Ecotrin - PO Not Given DAILY [facility] Atorvastatin Calcium 40 mg 09/16/18 22:00 09/17/18 21:15 Lipitor - PO 40 mg HS [facility] Administration Budesonide/Formoterol Fumarate 1 puff 09/16/18 22:00 09/18/18 10:25 Symbicort 160/4.5mcg - IH 1 puff BID [facility] Administration Cyanocobalamin 1,000 mcg 09/17/18 10:00 09/18/18 10:24 Vitamin B12 - PO 1,000 mcg DAILY [facility] Administration Furosemide 40 mg 09/18/18 06:00 09/18/18 13:33 Lasix Injection - IVPUSH 40 mg BID@0600,1400 [facility] Administration Gabapentin 100 mg 09/17/18 22:00 09/18/18 10:41 Neurontin - PO Not Given BID [facility] Hydralazine HCl 25 mg 09/16/18 22:00 09/18/18 10:41 Apresoline - PO Not Given BID [facility] Insulin Aspart 1 vial 09/16/18 16:30 09/18/18 11:22 Novolog Vial Sliding Scale - SQ 4 units ACHS [facility] Administration Protocol Isosorbide Mononitrate 30 mg 09/17/18 10:00 09/18/18 10:25 Imdur - PO 30 mg DAILY [facility] Administration Levothyroxine Sodium 25 mcg 09/17/18 07:00 09/18/18 06:48 Synthroid - PO 25 mcg DAILY@0700 [facility] Administration Losartan Potassium 25 mg 09/17/18 10:00 09/18/18 10:24 Cozaar - PO 25 mg DAILY [facility] Administration Magnesium Oxide 400 mg 09/17/18 22:00 09/18/18 10:25 Mag-Ox - PO 400 mg BID [facility] Administration Metoprolol Succinate 75 mg 09/17/18 17:15 09/18/18 10:24 Toprol Xl - PO 75 mg DAILY [facility] Administration Multivitamins/Minerals/Vitamin C 1 tab 09/17/18 10:00 09/18/18 10:41 Tab-A-Vit - PO Not Given DAILY [facility] Pantoprazole Sodium 40 mg 09/17/18 10:00 09/18/18 10:41 Protonix - PO Not Given DAILY [facility] Tamsulosin HCl 0.4 mg 09/17/18 08:30 09/18/18 10:41 Flomax - PO Not Given DAILY@0830 [facility] Laboratory Tests 09/13/18 05:30 Free [place] LC, Quant 52.1 H Free [place] LC, Quant 83.6 H Free [place]/Lambda Ratio 0.62 Impression 1. CKD 2. anemia 3. history of hyperkalemia 4. HTN 5. DM 6. hypothyroidism 7. HLD 8. copd 9. proteinuria - nephrotic 10. active smoker 11. fluid overload Plan - cont losartan, monitor potassium - cont lasix - low potassium diet - myeloma workup, oncology follow up - refusing kidney biopsy at this point - will follow Dr Haley
--- NOTE | 2018-09-18 15:32 | PN ---
Progress Note, Physician History of Present Illness: no specific changes no issues breathing better - Current Medication List Current Medications: Active Medications Albuterol/Ipratropium (Duoneb -) 1 amp NEB RQID [facility] Atorvastatin Calcium (Lipitor -) 40 mg PO HS [facility] Last Admin: 09/17/18 21:15 Dose: 40 mg Budesonide/Formoterol Fumarate (Symbicort 160/4.5mcg -) 1 puff IH BID [facility] Last Admin: 09/18/18 10:25 Dose: 1 puff Cyanocobalamin (Vitamin B12 -) 1,000 mcg PO DAILY [facility] Last Admin: 09/18/18 10:24 Dose: 1,000 mcg Furosemide (Lasix Injection -) 40 mg IVPUSH BID@0600,1400 [facility] Last Admin: 09/18/18 13:33 Dose: 40 mg Gabapentin (Neurontin -) 100 mg PO BID [facility] Last Admin: 09/18/18 10:41 Dose: Not Given Hydralazine HCl (Apresoline -) 25 mg PO BID [facility] Last Admin: 09/18/18 10:41 Dose: Not Given Insulin Aspart (Novolog Vial Sliding Scale -) 1 vial SQ [facility]; Protocol Last Admin: 09/18/18 11:22 Dose: 4 units Isosorbide Mononitrate (Imdur -) 30 mg PO DAILY [facility] Last Admin: 09/18/18 10:25 Dose: 30 mg Levothyroxine Sodium (Synthroid -) 25 mcg PO DAILY@0700 [facility] Last Admin: 09/18/18 06:48 Dose: 25 mcg Losartan Potassium (Cozaar -) 25 mg PO DAILY [facility] Last Admin: 09/18/18 10:24 Dose: 25 mg Magnesium Oxide (Mag-Ox -) 400 mg PO BID [facility] Last Admin: 09/18/18 10:25 Dose: 400 mg Metoprolol Succinate (Toprol Xl -) 75 mg PO DAILY [facility] Last Admin: 09/18/18 10:24 Dose: 75 mg Multivitamins/Minerals/Vitamin C (Tab-A-Vit -) 1 tab PO DAILY [facility] Last Admin: 09/18/18 10:41 Dose: Not Given Pantoprazole Sodium (Protonix -) 40 mg PO DAILY [facility] Last Admin: 09/18/18 10:41 Dose: Not Given Tamsulosin HCl (Flomax -) 0.4 mg PO DAILY@0830 [facility] Last Admin: 09/18/18 10:41 Dose: Not Given - Objective Vital Signs: Vital Signs Temperature 98.5 F 09/18/18 15:21 Pulse Rate 72 09/18/18 15:21 Respiratory Rate 18 09/18/18 15:21 Blood Pressure 101/52 L 09/18/18 15:21 O2 Sat by Pulse Oximetry (%) 94 L 09/18/18 10:00 Constitutional: Yes: No Distress, Calm Cardiovascular: Yes: S1, S2 Respiratory: Yes: Regular, Poor Air Entry Gastrointestinal: Yes: Normal Bowel Sounds, Soft Musculoskeletal: Yes: Other Extremities: Yes: Other Neurological: Yes: Alert, Oriented Psychiatric: Yes: Alert, Oriented Labs: CBC, BMP 09/18/18 08:30 09/18/18 08:30 INR, PTT INR 1.16 (0.83-1.09) H 09/14/18 05:30 Assessment/Plan Problem List - Problems (1) Nephrotic range proteinuria Code(s): R80.9 - PROTEINURIA, UNSPECIFIED (2) Heart failure Code(s): I50.9 - HEART FAILURE, UNSPECIFIED Qualifiers: Heart failure type: combined systolic and diastolic Heart failure chronicity: acute on chronic Qualified Code(s): I50.43 - Acute on chronic combined systolic (congestive) and diastolic (congestive) heart failure (3) CKD (chronic kidney disease) Code(s): N18.9 - CHRONIC KIDNEY DISEASE, UNSPECIFIED Qualifiers: Chronic kidney disease stage: stage 3 (moderate) Qualified Code(s): N18.3 - Chronic kidney disease, stage 3 (moderate) (4) Cardiomyopathy as manifestation of underlying disease Code(s): I43 - CARDIOMYOPATHY IN DISEASES CLASSIFIED ELSEWHERE (5) Hypothyroid Code(s): E03.9 - HYPOTHYROIDISM, UNSPECIFIED Qualifiers: Hypothyroidism type: unspecified Qualified Code(s): E03.9 - Hypothyroidism , unspecified plan continue current mgmt incentive jerad rest as per the team and cardio await for the sputum cx
[2018-09-18] MEDS: ATORVASTATIN CA 40 MG TABLET (FP) PO SCH (21:20)
[2018-09-19] MEDS: FUROSEMIDE 40 MG/4 ML INJECTABLE VIAL IVPUSH SCH (06:09)
[2018-09-19] MEDS: LEVOTHYROXINE NA 25 MCG TABLET (FP) PO SCH (06:09)
[2018-09-19] MEDS: INSULIN SLIDING SCALE (NOVOLOG) 1 VIAL SQ SCH ×4 (06:09→22:06)
[2018-09-19] MEDS: ALBUTEROL SO4 2.5/IPRATROPIUM 0.5 INH SOL 3 ML VIAL.NEB. NEB SCH ×4 (07:25→19:22)
[2018-09-19] MEDS ORDERED: PT OWN MED DRAWER 7, Y5N ONE (08:59)
[2018-09-19] MEDS: hydrALAZINE HCL 25 MG TABLET (FP) PO SCH ×2 (09:04→21:33)
[2018-09-19] MEDS: TAMSULOSIN HCL 0.4 MG CAP PO SCH (09:04)
[2018-09-19] MEDS: MAGNESIUM OXIDE 400 MG TABLET (FP) PO SCH ×2 (09:05→21:33)
[2018-09-19] MEDS: GABAPENTIN 100 MG CAPSULE (FP) PO SCH ×2 (09:06→21:33)
[2018-09-19] MEDS: ISOSORBIDE MONONITRATE 30 MG TAB.SR.24H (FP) PO SCH (09:06)
[2018-09-19] MEDS: MULTIVITAMINS (DAILY MVI) TABLET (FP) PO SCH (09:06)
[2018-09-19] MEDS: PANTOPRAZOLE 40 MG TABLET (FP) PO SCH (09:06)
[2018-09-19] MEDS: CYANOCOBALAMIN 1,000 MCG TABLET (FP) PO SCH (09:06)
[2018-09-19] MEDS: BUDESONIDE/FORMETEROL FUMARATE 160/4.5 mcg INHALER IH SCH ×2 (09:09→22:06)
[2018-09-19] MEDS: LOSARTAN POTASSIUM 25 MG TABLET PO SCH (09:09)
[2018-09-19 09:26] LABS: BASO % 0.5 % (0-2.0); EOS % 0.9 % (0-4.5); HEMATOCRIT 21.2 % (35.4-49); LYMPH % 11.4 % (8-40); MCH 33.7 pg (25.7-33.7); MCHC 32.6 g/dl (32.0-35.9); MEAN CELL VOLUME 103.6 fl (80-96); MEAN PLT VOLUME 10.4 fl (7.5-11.1); MONO % 32.3 % (3.8-10.2); NEUT % 54.9 % (42.8-82.8); PLATELET COUNT 171 K/MM3 (134-434); RBC 2.05 M/mm3 (4.00-5.60); RDW 22.1 % (11.9-15.9); WHITE BLOOD COUNT 4.9 K/mm3 (4.0-10.0)
[2018-09-19 09:53] LABS: ALBUMIN 2.7 g/dl (3.4-5.0); ALK PHOS 87 U/L (45-117); ANION GAP 5 MMOL/L (8-16); BILIRUBIN,TOTAL 0.4 mg/dL (0.2-1); BLOOD UREA NITROGEN 65 mg/dL (7-18); CALCIUM 7.9 mg/dL (8.5-10.1); CHLORIDE 103 mmol/L (98-107); CO2 34 mmol/L (21-32); CREATININE 2.3 mg/dL (0.55-1.3); GLUCOSE,RANDOM 121 mg/dL (74-106); MAGNESIUM 1.9 mg/dL (1.8-2.4); POTASSIUM 4.5 mmol/L (3.5-5.1); SGOT/AST 25 U/L (15-37); SGPT/ALT 39 U/L (13-61); SODIUM 141 mmol/L (136-145); TOT PROT 5.9 g/dl (6.4-8.2)
--- NOTE | 2018-09-19 09:56 | PN ---
Progress Note, Physician Chief Complaint: No new events Sitting on the edge of bed History of Present Illness: Patient was seen and examined. Awake and alert. Chart was reviewed Denies chest pain. Intermittent SOB and cough - Current Medication List Current Medications: Active Medications Albuterol/Ipratropium (Duoneb -) 1 amp NEB RQID [facility] Last Admin: 09/19/18 07:25 Dose: 1 amp Atorvastatin Calcium (Lipitor -) 40 mg PO HS [facility] Last Admin: 09/18/18 21:20 Dose: 40 mg Budesonide/Formoterol Fumarate (Symbicort 160/4.5mcg -) 1 puff IH BID [facility] Last Admin: 09/19/18 09:09 Dose: 1 puff Cyanocobalamin (Vitamin B12 -) 1,000 mcg PO DAILY [facility] Last Admin: 09/19/18 09:06 Dose: 1,000 mcg Furosemide (Lasix -) 40 mg PO BID@0600,1400 [facility] Gabapentin (Neurontin -) 100 mg PO BID [facility] Last Admin: 09/19/18 09:06 Dose: Not Given Hydralazine HCl (Apresoline -) 25 mg PO BID [facility] Last Admin: 09/19/18 09:04 Dose: 25 mg Insulin Aspart (Novolog Vial Sliding Scale -) 1 vial SQ ACHS [facility]; Protocol Last Admin: 09/19/18 06:09 Dose: 2 units Isosorbide Mononitrate (Imdur -) 30 mg PO DAILY [facility] Last Admin: 09/19/18 09:06 Dose: 30 mg Levothyroxine Sodium (Synthroid -) 25 mcg PO DAILY@0700 [facility] Last Admin: 09/19/18 06:09 Dose: 25 mcg Losartan Potassium (Cozaar -) 25 mg PO DAILY [facility] Last Admin: 09/19/18 09:09 Dose: 25 mg Magnesium Oxide (Mag-Ox -) 400 mg PO BID [facility] Last Admin: 09/19/18 09:05 Dose: 400 mg Metoprolol Succinate (Toprol Xl -) 75 mg PO DAILY [facility] Last Admin: 09/19/18 09:09 Dose: Not Given Multivitamins/Minerals/Vitamin C (Tab-A-Vit -) 1 tab PO DAILY [facility] Last Admin: 09/19/18 09:06 Dose: Not Given Pantoprazole Sodium (Protonix -) 40 mg PO DAILY [facility] Last Admin: 09/19/18 09:06 Dose: 40 mg Tamsulosin HCl (Flomax -) 0.4 mg PO DAILY@0830 [facility] Last Admin: 09/19/18 09:04 Dose: 0.4 mg - Objective Vital Signs: Vital Signs Temperature 98.3 F 09/19/18 05:00 Pulse Rate 79 09/19/18 05:00 Respiratory Rate 18 09/19/18 05:00 Blood Pressure 105/61 09/19/18 05:00 O2 Sat by Pulse Oximetry (%) 98 09/18/18 21:00 HENT: Yes: Atraumatic Neck: Yes: Supple Cardiovascular: Yes: Regular Rate and Rhythm, S1, S2 Respiratory: Yes: Diminished (left lung field diminshed more than the right) Gastrointestinal: Yes: Normal Bowel Sounds, Soft. No: Tenderness Extremities: Yes: Amputation (Left BKA) Edema: Yes Labs: CBC, BMP 09/19/18 08:42 INR, PTT INR 1.16 (0.83-1.09) H 09/14/18 05:30 Problem List - Problems (1) COPD exacerbation Code(s): J44.1 - CHRONIC OBSTRUCTIVE PULMONARY DISEASE W (ACUTE) EXACERBATION (2) Dyslipidemia (high LDL; low HDL) Code(s): E78.5 - HYPERLIPIDEMIA, UNSPECIFIED (3) HTN (hypertension) Code(s): I10 - ESSENTIAL (PRIMARY) HYPERTENSION (4) Mitral valve regurgitation Code(s): I34.0 - NONRHEUMATIC MITRAL (VALVE) INSUFFICIENCY (5) Nephrotic range proteinuria Code(s): R80.9 - PROTEINURIA, UNSPECIFIED (6) Non-insulin dependent type 2 diabetes mellitus Code(s): E11.9 - TYPE 2 DIABETES MELLITUS WITHOUT COMPLICATIONS (7) Shortness of breath Code(s): R06.02 - SHORTNESS OF BREATH (8) CKD (chronic kidney disease) Code(s): N18.9 - CHRONIC KIDNEY DISEASE, UNSPECIFIED Qualifiers: Chronic kidney disease stage: stage 3 (moderate) Qualified Code(s): N18.3 - Chronic kidney disease, stage 3 (moderate) (9) Anemia Code(s): D64.9 - ANEMIA, UNSPECIFIED Qualifiers: Anemia type: other cause Other causes of anemia: other cause, not classified Qualified Code(s): D64.89 - Other specified anemias (10) Diastolic dysfunction Code(s): I51.9 - HEART DISEASE, UNSPECIFIED (11) Hypothyroid Code(s): E03.9 - HYPOTHYROIDISM, UNSPECIFIED Qualifiers: Hypothyroidism type: unspecified Qualified Code(s): E03.9 - Hypothyroidism , unspecified Assessment/Plan 1. BRAGG due to acute exacerbation of moderate to severe COPD 2. Acute on chronic diastolic/systolic failure 3. Anemia post transfusion, ? MDS vs multiple myeloma 4. CKD with proteinuria - nephrotic and history of hyperkalemia 5. HTN 6. Type 2 DM 7. hypothyroidism 8. Hypercholesterolemia 9. Abnormal LFT from hepatic congestion 10. Pulmonary nodule and history of laryngeal cancer s/p XRT and chemotherapy 11. Left BKA PLAN: 1. Continue diuresis (switched to PO Lasix) with monitor renal function and electrolytes 2. Continue bronchodilators, inhaled steroids, O2 as needed 3. Continue ASA 81 qd, Lipitor 40 qhs, Losartan 25 mg QD, Hydralazine 25 mg BID and Toprol XL 75 mg QD as tolerated 4. Monitor H/H and transfuse PRBC as needed. May need transfusion with diuretic alissa Further plans are to follow Aman Zavala MD
[2018-09-19 10:08] LABS: ANISOCYTOSIS 2+; MACROCYTOSIS 0; PLATELET ESTIMATE NORMAL; TEAR DROP CELLS 1+
[2018-09-19 10:12] LABS: HEMOGLOBIN 6.9 GM/dL (11.7-16.9)
--- NOTE | 2018-09-19 13:15 | PN ---
Progress Note, Physician History of Present Illness: PULMONARY ALERT,FEELING BETTER,LESS DYSPNEIC - Current Medication List Current Medications: Active Medications Albuterol/Ipratropium (Duoneb -) 1 amp NEB RQID [facility] Last Admin: 09/19/18 11:44 Dose: 1 amp Atorvastatin Calcium (Lipitor -) 40 mg PO HS [facility] Last Admin: 09/18/18 21:20 Dose: 40 mg Budesonide/Formoterol Fumarate (Symbicort 160/4.5mcg -) 1 puff IH BID [facility] Last Admin: 09/19/18 09:09 Dose: 1 puff Cyanocobalamin (Vitamin B12 -) 1,000 mcg PO DAILY [facility] Last Admin: 09/19/18 09:06 Dose: 1,000 mcg Furosemide (Lasix -) 40 mg PO BID@0600,1400 [facility] Gabapentin (Neurontin -) 100 mg PO BID [facility] Last Admin: 09/19/18 09:06 Dose: Not Given Hydralazine HCl (Apresoline -) 25 mg PO BID [facility] Last Admin: 09/19/18 09:04 Dose: 25 mg Insulin Aspart (Novolog Vial Sliding Scale -) 1 vial SQ [facility]; Protocol Last Admin: 09/19/18 13:03 Dose: 2 units Isosorbide Mononitrate (Imdur -) 30 mg PO DAILY [facility] Last Admin: 09/19/18 09:06 Dose: 30 mg Levothyroxine Sodium (Synthroid -) 25 mcg PO DAILY@0700 [facility] Last Admin: 09/19/18 06:09 Dose: 25 mcg Losartan Potassium (Cozaar -) 25 mg PO DAILY [facility] Last Admin: 09/19/18 09:09 Dose: 25 mg Magnesium Oxide (Mag-Ox -) 400 mg PO BID [facility] Last Admin: 09/19/18 09:05 Dose: 400 mg Metoprolol Succinate (Toprol Xl -) 75 mg PO DAILY [facility] Last Admin: 09/19/18 09:09 Dose: Not Given Multivitamins/Minerals/Vitamin C (Tab-A-Vit -) 1 tab PO DAILY [facility] Last Admin: 09/19/18 09:06 Dose: Not Given Pantoprazole Sodium (Protonix -) 40 mg PO DAILY [facility] Last Admin: 09/19/18 09:06 Dose: 40 mg Tamsulosin HCl (Flomax -) 0.4 mg PO DAILY@0830 [facility] Last Admin: 09/19/18 09:04 Dose: 0.4 mg - Objective Vital Signs: Vital Signs Temperature 98.4 F 09/19/18 09:00 Pulse Rate 81 09/19/18 09:00 Respiratory Rate 18 09/19/18 09:00 Blood Pressure 103/61 09/19/18 09:00 O2 Sat by Pulse Oximetry (%) 92 L 09/19/18 09:00 Constitutional: Yes: Well Nourished, Calm Eyes: Yes: WNL HENT: Yes: WNL Neck: Yes: WNL Cardiovascular: Yes: Regular Rate and Rhythm, S1, S2 Respiratory: Yes: Diminished Gastrointestinal: Yes: Normal Bowel Sounds, Soft Extremities: Yes: Amputation, Other (LEFT BKA) Edema: No Labs: CBC, BMP 09/19/18 08:42 09/19/18 08:42 INR, PTT INR 1.16 (0.83-1.09) H 09/14/18 05:30 Assessment/Plan AE mod-severe copd ilmproving active smoker Acute on chronic diastolic/systolic failure Anemia CKD with proteinuria - nephrotic and h/o hyperkalemia HTN Type 2 DM hypothyroidism HLD high transaminases from hepatic congestion?- improving 9 mm RUL pulm nodule, 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 BKA Macrocytic anemia ?mds O2 as ordered(patient has home o2 but uses it sparingly) duo neb ics/laba diuretics no need for systemic steroids at this time smoking cessation encourage use of [address] SANCHEZ Problem List - Problems (1) BPH (benign prostatic hyperplasia) Code(s): N40.0 - BENIGN PROSTATIC HYPERPLASIA WITHOUT LOWER URINRY TRACT SYMP (2) COPD exacerbation Code(s): J44.1 - CHRONIC OBSTRUCTIVE PULMONARY DISEASE W (ACUTE) EXACERBATION (3) Dyslipidemia (high LDL; low HDL) Code(s): E78.5 - HYPERLIPIDEMIA, UNSPECIFIED (4) HTN (hypertension) Code(s): I10 - ESSENTIAL (PRIMARY) HYPERTENSION (5) Heart failure Code(s): I50.9 - HEART FAILURE, UNSPECIFIED Qualifiers: Heart failure type: combined systolic and diastolic Heart failure chronicity: acute on chronic Qualified Code(s): I50.43 - Acute on chronic combined systolic (congestive) and diastolic (congestive) heart failure (6) Nephrotic range proteinuria Code(s): R80.9 - PROTEINURIA, UNSPECIFIED (7) Non-insulin dependent type 2 diabetes mellitus Code(s): E11.9 - TYPE 2 DIABETES MELLITUS WITHOUT COMPLICATIONS (8) Shortness of breath Code(s): R06.02 - SHORTNESS OF BREATH (9) CKD (chronic kidney disease) Code(s): N18.9 - CHRONIC KIDNEY DISEASE, UNSPECIFIED Qualifiers: Chronic kidney disease stage: stage 3 (moderate) Qualified Code(s): N18.3 - Chronic kidney disease, stage 3 (moderate) (10) Anemia Code(s): D64.9 - ANEMIA, UNSPECIFIED Qualifiers: Anemia type: other cause Other causes of anemia: other cause, not classified Qualified Code(s): D64.89 - Other specified anemias (11) Cardiomyopathy as manifestation of underlying disease Code(s): I43 - CARDIOMYOPATHY IN DISEASES CLASSIFIED ELSEWHERE (12) Diastolic dysfunction Code(s): I51.9 - HEART DISEASE, UNSPECIFIED
[2018-09-19] MEDS ORDERED: FUROSEMIDE 40 MG TABLET (FP) PO SCH (14:00)
[2018-09-19] MEDS ORDERED: ACETAMINOPHEN 325 MG TABLET (FP) PO ONE (15:00)
[2018-09-19] MEDS ORDERED: ALBUTEROL SO4 2.5/IPRATROPIUM 0.5 INH SOL 3 ML VIAL.NEB. NEB ONE (15:00)
[2018-09-19] MEDS ORDERED: FUROSEMIDE 40 MG/4 ML INJECTABLE VIAL IVPUSH ONE (15:00)
[2018-09-19] MEDS ORDERED: methylPREDNISolone NA SUCC 40 MG/1 ML VIAL IVPUSH ONE (15:00)
--- NOTE | 2018-09-19 15:29 | PN ---
Physical Exam: SUBJECTIVE: Patient seen and examined at the bedside. Feeling more short of breath today, earlier was coughing up some phleghm OBJECTIVE: called by RN to report patient is having more shortness of breath. on exam, his oxygen saturations 97% on 2 liters, but he is using accessory muscles use. patient speaking in clear sentences, states he is not feeling well currently getting 1 unit of prbc with stable vitals signs, afebrile will order - extra duoneb now - transition lasix back to ivpush (40mg iv bid) - one dose of solumedrol 60mg - lasix 40mg iv push now - abg -> may benefit from bipap - venti mask @ 50%, 15 liters - chest xray - right lower leg duplex once more stable Vital Signs Period Temp Pulse Resp BP Sys/Stoner Pulse Ox Last 24 Hr 98.2 F-98.4 F 73-81 18-22 100-118/54-77 92-98 GENERAL: The patient is awake, alert, and fully oriented, in moderate respiratory distress - pallorous HEAD: Normal with no signs of trauma. EYES: PERRL, extraocular movements intact, sclera anicteric, conjunctiva clear. No ptosis. ENT: Ears normal, nares patent, oropharynx clear without exudates, moist mucous membranes. NECK: Trachea midline, full range of motion, supple. LUNGS: diminished lungs bilaterally HEART: Regular rate and rhythm ABDOMEN: Soft, obese abdomen EXTREMITIES: left bki, right leg with non pitting edema NEUROLOGICAL: Normal speech PSYCH:calm SKIN: pallorous intact skin Laboratory Results - last 24 hr 09/18/18 09/18/18 09/18/18 16:59 19:44 21:19 WBC RBC Hgb Hct MCV MCH MCHC RDW Plt Count MPV Absolute Neuts (auto) Neutrophils % Neutrophils % (Manual) Band Neutrophils % Lymphocytes % Lymphocytes % (Manual) Monocytes % Monocytes % (Manual) Eosinophils % Eosinophils % (Manual) Basophils % Basophils % (Manual) Myelocytes % (Man) Promyelocytes % (Man) Blast Cells % (Manual) Nucleated RBC % Metamyelocytes Hypochromia Platelet Estimate Polychromasia Poikilocytosis Anisocytosis Microcytosis Macrocytosis Tear Drop Cells Stomatocytes Schistocytes Sodium Potassium Chloride Carbon Dioxide Anion Gap BUN Creatinine Creat Clearance w eGFR POC Glucometer 270 181 Random Glucose Calcium Magnesium Total Bilirubin AST ALT Alkaline Phosphatase Total Protein Albumin Stool Occult Blood Negative Blood Type Antibody Screen Crossmatch 09/19/18 09/19/18 09/19/18 06:08 08:42 08:42 WBC 4.9 RBC 2.05 L Hgb 6.9 L* Hct 21.2 L MCV 103.6 H MCH 33.7 MCHC 32.6 RDW 22.1 H Plt Count 171 MPV 10.4 Absolute Neuts (auto) 2.7 Neutrophils % 54.9 Neutrophils % (Manual) 65.0 Band Neutrophils % 0.0 Lymphocytes % 11.4 Lymphocytes % (Manual) 10.0 Monocytes % 32.3 H Monocytes % (Manual) 19 H Eosinophils % 0.9 Eosinophils % (Manual) 0.0 D Basophils % 0.5 Basophils % (Manual) 0.0 Myelocytes % (Man) 0 Promyelocytes % (Man) 0 Blast Cells % (Manual) 0 Nucleated RBC % 1 H Metamyelocytes 0 Hypochromia 0 Platelet Estimate Normal Polychromasia 1+ Poikilocytosis 2+ Anisocytosis 2+ Microcytosis 2+ Macrocytosis 0 Tear Drop Cells 1+ Stomatocytes 2+ Schistocytes 1+ Sodium 141 Potassium 4.5 Chloride 103 Carbon Dioxide 34 H Anion Gap 5 L BUN 65 H Creatinine 2.3 H Creat Clearance w eGFR 28.50 POC Glucometer 176 Random Glucose 121 H Calcium 7.9 L Magnesium 1.9 Total Bilirubin 0.4 AST 25 ALT 39 Alkaline Phosphatase 87 Total Protein 5.9 L Albumin 2.7 L Stool Occult Blood Blood Type Antibody Screen Crossmatch 09/19/18 09/19/18 10:42 11:31 WBC RBC Hgb Hct MCV MCH MCHC RDW Plt Count MPV Absolute Neuts (auto) Neutrophils % Neutrophils % (Manual) Band Neutrophils % Lymphocytes % Lymphocytes % (Manual) Monocytes % Monocytes % (Manual) Eosinophils % Eosinophils % (Manual) Basophils % Basophils % (Manual) Myelocytes % (Man) Promyelocytes % (Man) Blast Cells % (Manual) Nucleated RBC % Metamyelocytes Hypochromia Platelet Estimate Polychromasia Poikilocytosis Anisocytosis Microcytosis Macrocytosis Tear Drop Cells Stomatocytes Schistocytes Sodium Potassium Chloride Carbon Dioxide Anion Gap BUN Creatinine Creat Clearance w eGFR POC Glucometer 194 Random Glucose Calcium Magnesium Total Bilirubin AST ALT Alkaline Phosphatase Total Protein Albumin Stool Occult Blood Blood Type A POSITIVE Antibody Screen Negative Crossmatch See Detail Active Medications Generic Name Dose Route Start Last Admin Trade Name Brenton PRN Reason Stop Dose Admin Albuterol/Ipratropium 1 amp 09/18/18 16:00 09/19/18 15:22 Duoneb - NEB Not Given RQID AURELIO Atorvastatin Calcium 40 mg 09/16/18 22:00 09/18/18 21:20 Lipitor - PO 40 mg HS AURELIO Administration Budesonide/Formoterol Fumarate 1 puff 09/16/18 22:00 09/19/18 09:09 Symbicort 160/4.5mcg - IH 1 puff BID AURELIO Administration Cyanocobalamin 1,000 mcg 09/17/18 10:00 09/19/18 09:06 Vitamin B12 - PO 1,000 mcg DAILY A[facility]LIO Administration Furosemide 40 mg 09/19/18 14:00 09/19/18 14:15 Lasix - PO 40 mg BID@0600,1400 A[facility] Administration Gabapentin 100 mg 09/17/18 22:00 09/19/18 09:06 Neurontin - PO Not Given BID A[facility]LIO Heparin Sodium (Porcine) 5,000 unit 09/19/18 22:00 Heparin - SQ TID AURELIO Hydralazine HCl 25 mg 09/16/18 22:00 09/19/18 09:04 Apresoline - PO 25 mg BID A[facility] Administration Insulin Aspart 1 vial 09/16/18 16:30 09/19/18 13:03 Novolog Vial Sliding Scale - SQ 2 units ACHS AURELIO Administration Protocol Isosorbide Mononitrate 30 mg 09/17/18 10:00 09/19/18 09:06 Imdur - PO 30 mg DAILY [facility] Administration Levothyroxine Sodium 25 mcg 09/17/18 07:00 09/19/18 06:09 Synthroid - PO 25 mcg DAILY@0700 [facility] Administration Losartan Potassium 25 mg 09/17/18 10:00 09/19/18 09:09 Cozaar - PO 25 mg DAILY [facility] Administration Magnesium Oxide 400 mg 09/17/18 22:00 09/19/18 09:05 Mag-Ox - PO 400 mg BID A[facility] Administration Metoprolol Succinate 75 mg 09/17/18 17:15 09/19/18 09:09 Toprol Xl - PO Not Given DAILY COUNTS INCLUDE 234 BEDS AT THE [facility] Multivitamins/Minerals/Vitamin C 1 tab 09/17/18 10:00 09/19/18 09:06 Tab-A-Vit - PO Not Given DAILY [facility] Pantoprazole Sodium 40 mg 09/17/18 10:00 09/19/18 09:06 Protonix - PO 40 mg DAILY A[facility] Administration Tamsulosin HCl 0.4 mg 09/17/18 08:30 09/19/18 09:04 Flomax - PO 0.4 mg DAILY@0830 [facility] Administration ASSESSMENT/PLAN: Patient is a 67 year old male with a past medical history of laryngeal cancer s/ p RT, chronic systolic CHF, BPH, chronic respiratory failure sec to COPD/CHF on 2L O2 via NC (recently discharged 09/05/18), active smoker, CKD 3, chronic anemia, hypertension, HLD, PAD s/p LBKA and hypothyroidism. He presents with increasing SOB worse over the past 3 days, exacerbated by exertion. Heme: Symptomatic anemia/anemia of chronic disease. 1 unit of prbc ordered for now as pt hmg 6.9. Followed by hematology. Patient for possible bone marrow biopsy outpatient. CBC to be monitored daily. Pulm: COPD exacerbation in the setting of daily cigarette smoking. On bronchodilators (symbicort, stiolto/respimat/inhal spray). nebs ordered. maintain oxygen >95. Home oxygen dependent. Chest xray now for acute shortness of breath. Card: Acute on chronic diastolic/systolic failure. Presents with BNP of 40k. Echos shows dilated LV with segmental wall motion. reduced lv systolic fx. On metoprolol. On Lasix 40mg bid. Weights 88kg>85kg with diuresis. More short of breath today. will transition back to IV lasix 40mg IV bid. (see note above -objective) Hypertension. chronic with episodes of hypotension. On Metoprolol succ. 100mg daily. Hydralazine BID. hold if systolic <100. Hld. chronic. On Lipitor Psyche: Current everyday smoker. Tobacco cessation discussed. refusing nicotine patch. Renal: MEENAKSHI on CKD. followed by print decorator Dr. Haley. pt for a renal biopsy as outpatient On weekly procrit. On a renal diet. Onc: Lung nodule. Patient has followed up at [facility] for lung nodule. Patient has hx of larnygeal cancer. s/p RT and chemo. Endocrine: DM. monitor bgms. novolog ss Hypothyroidism: Levothyroxine 25 mcg PO DAILY fen PO hydration adequate monitor electrolytes renal diet prophy heparin Visit type - Emergency Visit Emergency Visit: Yes ED Registration Date: 09/11/18 Care time: The patient presented to the Emergency Department on the above date and was hospitalized for further evaluation of their emergent condition. - New Patient This patient is new to me today: No - Critical Care Critical Care patient: No - Discharge Referral Referred to [facility] Med P.C.: No
[2018-09-19 15:35] VITALS: BMI 24.3
--- NOTE | 2018-09-19 16:01 | PN ---
Progress Note, Physician History of Present Illness: Pt seen and examined at bedside. He is awake and alert. He complains of shortness of breath. He is getting PRBC transfusions. - Current Medication List Current Medications: Active Medications Albuterol/Ipratropium (Duoneb -) 1 amp NEB RQID [facility] Last Admin: 09/19/18 15:22 Dose: Not Given Atorvastatin Calcium (Lipitor -) 40 mg PO HS [facility] Last Admin: 09/18/18 21:20 Dose: 40 mg Budesonide/Formoterol Fumarate (Symbicort 160/4.5mcg -) 1 puff IH BID [facility] Last Admin: 09/19/18 09:09 Dose: 1 puff Cyanocobalamin (Vitamin B12 -) 1,000 mcg PO DAILY [facility] Last Admin: 09/19/18 09:06 Dose: 1,000 mcg Furosemide (Lasix Injection -) 40 mg IVPUSH BID@0600,1400 [facility] Gabapentin (Neurontin -) 100 mg PO BID [facility] Last Admin: 09/19/18 09:06 Dose: Not Given Heparin Sodium (Porcine) (Heparin -) 5,000 unit SQ TID [facility] Hydralazine HCl (Apresoline -) 25 mg PO BID [facility] Last Admin: 09/19/18 09:04 Dose: 25 mg Insulin Aspart (Novolog Vial Sliding Scale -) 1 vial SQ [facility]; Protocol Last Admin: 09/19/18 13:03 Dose: 2 units Isosorbide Mononitrate (Imdur -) 30 mg PO DAILY [facility] Last Admin: 09/19/18 09:06 Dose: 30 mg Levothyroxine Sodium (Synthroid -) 25 mcg PO DAILY@0700 [facility] Last Admin: 09/19/18 06:09 Dose: 25 mcg Losartan Potassium (Cozaar -) 25 mg PO DAILY [facility] Last Admin: 09/19/18 09:09 Dose: 25 mg Magnesium Oxide (Mag-Ox -) 400 mg PO BID [facility] Last Admin: 09/19/18 09:05 Dose: 400 mg Metoprolol Succinate (Toprol Xl -) 75 mg PO DAILY [facility] Last Admin: 09/19/18 09:09 Dose: Not Given Multivitamins/Minerals/Vitamin C (Tab-A-Vit -) 1 tab PO DAILY [facility] Last Admin: 09/19/18 09:06 Dose: Not Given Pantoprazole Sodium (Protonix -) 40 mg PO DAILY [facility] Last Admin: 09/19/18 09:06 Dose: 40 mg Tamsulosin HCl (Flomax -) 0.4 mg PO DAILY@0830 [facility] Last Admin: 09/19/18 09:04 Dose: 0.4 mg - Objective Vital Signs: Vital Signs Temperature 98.4 F 09/19/18 14:26 Pulse Rate 81 09/19/18 14:26 Respiratory Rate 22 H 09/19/18 14:26 Blood Pressure 118/77 09/19/18 14:26 O2 Sat by Pulse Oximetry (%) 92 L 09/19/18 09:00 Constitutional: Yes: Calm Eyes: Yes: Conjunctiva Clear HENT: Yes: Atraumatic Neck: Yes: Supple Cardiovascular: Yes: S1, S2 Respiratory: Yes: On Nasal O2 Gastrointestinal: Yes: Soft Edema: RLE: 1+ Neurological: Yes: Oriented Psychiatric: Yes: Oriented Labs: CBC, BMP 09/19/18 08:42 09/19/18 08:42 INR, PTT INR 1.16 (0.83-1.09) H 09/14/18 05:30 Problem List - Problems (1) COPD exacerbation Code(s): J44.1 - CHRONIC OBSTRUCTIVE PULMONARY DISEASE W (ACUTE) EXACERBATION (2) Heart failure Code(s): I50.9 - HEART FAILURE, UNSPECIFIED Qualifiers: Heart failure type: combined systolic and diastolic Heart failure chronicity: acute on chronic Qualified Code(s): I50.43 - Acute on chronic combined systolic (congestive) and diastolic (congestive) heart failure (3) Nephrotic range proteinuria Code(s): R80.9 - PROTEINURIA, UNSPECIFIED (4) CKD (chronic kidney disease) Code(s): N18.9 - CHRONIC KIDNEY DISEASE, UNSPECIFIED Qualifiers: Chronic kidney disease stage: stage 3 (moderate) Qualified Code(s): N18.3 - Chronic kidney disease, stage 3 (moderate) Assessment/Plan Current Medications Generic Name Dose Route Start Last Admin Trade Name Freq PRN Reason Stop Dose Admin Albuterol/Ipratropium 1 amp 09/18/18 16:00 09/19/18 15:22 Duoneb - NEB Not Given RQID [facility] Atorvastatin Calcium 40 mg 09/16/18 22:00 09/18/18 21:20 Lipitor - PO 40 mg HS [facility]URELIO Administration Budesonide/Formoterol Fumarate 1 puff 09/16/18 22:00 09/19/18 09:09 Symbicort 160/4.5mcg - IH 1 puff BID [facility] Administration Cyanocobalamin 1,000 mcg 09/17/18 10:00 09/19/18 09:06 Vitamin B12 - PO 1,000 mcg DAILY [facility] Administration Furosemide 40 mg 09/20/18 06:00 Lasix Injection - IVPUSH BID@0600,1400 [facility] Gabapentin 100 mg 09/17/18 22:00 09/19/18 09:06 Neurontin - PO Not Given BID [facility] Heparin Sodium (Porcine) 5,000 unit 09/19/18 22:00 Heparin - SQ TID [facility] Hydralazine HCl 25 mg 09/16/18 22:00 09/19/18 09:04 Apresoline - PO 25 mg BID [facility] Administration Insulin Aspart 1 vial 09/16/18 16:30 09/19/18 13:03 Novolog Vial Sliding Scale - SQ 2 units ACHS AURELIO Administration Protocol Isosorbide Mononitrate 30 mg 09/17/18 10:00 09/19/18 09:06 Imdur - PO 30 mg DAILY [facility] Administration Levothyroxine Sodium 25 mcg 09/17/18 07:00 09/19/18 06:09 Synthroid - PO 25 mcg DAILY@0700 [facility] Administration Losartan Potassium 25 mg 09/17/18 10:00 09/19/18 09:09 Cozaar - PO 25 mg DAILY [facility] Administration Magnesium Oxide 400 mg 09/17/18 22:00 09/19/18 09:05 Mag-Ox - PO 400 mg BID [facility] Administration Metoprolol Succinate 75 mg 09/17/18 17:15 09/19/18 09:09 Toprol Xl - PO Not Given DAILY [facility] Multivitamins/Minerals/Vitamin C 1 tab 09/17/18 10:00 09/19/18 09:06 Tab-A-Vit - PO Not Given DAILY [facility] Pantoprazole Sodium 40 mg 09/17/18 10:00 09/19/18 09:06 Protonix - PO 40 mg DAILY [facility] Administration Tamsulosin HCl 0.4 mg 09/17/18 08:30 09/19/18 09:04 Flomax - PO 0.4 mg DAILY@0830 [facility] Administration Impression 1. CKD 2. anemia 3. history of hyperkalemia 4. HTN 5. DM 6. hypothyroidism 7. HLD 8. copd 9. proteinuria - nephrotic 10. active smoker 11. fluid overload Plan - prbc transfusion - cont arb - cont lasix - recommend kidney biopsy once hg stable, pt is refusing biopsy - restrict fluid intake - low potassium diet - myeloma workup, oncology follow up - will follow Dr Haley
[2018-09-19 17:04] LABS: ARTERIAL BLD GAS O2 SATURATION 98.7 % (90-98.9); ARTERIAL BLOOD GAS BASE EXCESS 6.5 meq/l (-2-2); ARTERIAL BLOOD GAS PCO2 51.1 mmHg (35-45); ARTERIAL BLOOD GAS pH 7.41 (7.35-7.45)
[2018-09-19 17:10] LABS: ALLENS TEST POSITIVE
--- NOTE | 2018-09-19 18:09 | PN ---
Progress Note, Physician History of Present Illness: events noted being transfused now looks better sputum positive - Current Medication List Current Medications: Active Medications Albuterol/Ipratropium (Duoneb -) 1 amp NEB RQID [facility] Last Admin: 09/19/18 15:22 Dose: Not Given Atorvastatin Calcium (Lipitor -) 40 mg PO HS [facility] Last Admin: 09/18/18 21:20 Dose: 40 mg Budesonide/Formoterol Fumarate (Symbicort 160/4.5mcg -) 1 puff IH BID [facility] Last Admin: 09/19/18 09:09 Dose: 1 puff Cyanocobalamin (Vitamin B12 -) 1,000 mcg PO DAILY [facility] Last Admin: 09/19/18 09:06 Dose: 1,000 mcg Furosemide (Lasix Injection -) 40 mg IVPUSH BID@0600,1400 [facility] Gabapentin (Neurontin -) 100 mg PO BID [facility] Last Admin: 09/19/18 09:06 Dose: Not Given Heparin Sodium (Porcine) (Heparin -) 5,000 unit SQ TID [facility] Hydralazine HCl (Apresoline -) 25 mg PO BID [facility] Last Admin: 09/19/18 09:04 Dose: 25 mg Insulin Aspart (Novolog Vial Sliding Scale -) 1 vial SQ [facility]; Protocol Last Admin: 09/19/18 17:16 Dose: 2 units Isosorbide Mononitrate (Imdur -) 30 mg PO DAILY [facility] Last Admin: 09/19/18 09:06 Dose: 30 mg Levothyroxine Sodium (Synthroid -) 25 mcg PO DAILY@0700 [facility] Last Admin: 09/19/18 06:09 Dose: 25 mcg Losartan Potassium (Cozaar -) 25 mg PO DAILY [facility] Last Admin: 09/19/18 09:09 Dose: 25 mg Magnesium Oxide (Mag-Ox -) 400 mg PO BID [facility] Last Admin: 09/19/18 09:05 Dose: 400 mg Metoprolol Succinate (Toprol Xl -) 75 mg PO DAILY [facility] Last Admin: 09/19/18 09:09 Dose: Not Given Multivitamins/Minerals/Vitamin C (Tab-A-Vit -) 1 tab PO DAILY [facility] Last Admin: 09/19/18 09:06 Dose: Not Given Pantoprazole Sodium (Protonix -) 40 mg PO DAILY [facility] Last Admin: 12/31/18 09:06 Dose: 40 mg Tamsulosin HCl (Flomax -) 0.4 mg PO DAILY@0830 [facility] Last Admin: 09/19/18 09:04 Dose: 0.4 mg - Objective Vital Signs: Vital Signs Temperature 98.4 F 09/19/18 14:26 Pulse Rate 81 09/19/18 14:26 Respiratory Rate 22 H 09/19/18 14:26 Blood Pressure 118/77 09/19/18 14:26 O2 Sat by Pulse Oximetry (%) 92 L 09/19/18 09:00 Constitutional: Yes: Calm, Mild Distress Cardiovascular: Yes: S1, S2 Respiratory: Yes: On Nasal O2, Poor Air Entry, Rhonchi Gastrointestinal: Yes: Normal Bowel Sounds, Soft Musculoskeletal: Yes: WNL Extremities: Yes: Other Neurological: Yes: Alert, Oriented Psychiatric: Yes: Alert, Oriented Labs: CBC, BMP 09/19/18 08:42 09/19/18 08:42 INR, PTT INR 1.16 (0.83-1.09) H 09/14/18 05:30 Assessment/Plan Problem List - Problems (1) Nephrotic range proteinuria Code(s): R80.9 - PROTEINURIA, UNSPECIFIED (2) Heart failure Code(s): I50.9 - HEART FAILURE, UNSPECIFIED Qualifiers: Heart failure type: combined systolic and diastolic Heart failure chronicity: acute on chronic Qualified Code(s): I50.43 - Acute on chronic combined systolic (congestive) and diastolic (congestive) heart failure (3) CKD (chronic kidney disease) Code(s): N18.9 - CHRONIC KIDNEY DISEASE, UNSPECIFIED Qualifiers: Chronic kidney disease stage: stage 3 (moderate) Qualified Code(s): N18.3 - Chronic kidney disease, stage 3 (moderate) (4) Cardiomyopathy as manifestation of underlying disease Code(s): I43 - CARDIOMYOPATHY IN DISEASES CLASSIFIED ELSEWHERE (5) Hypothyroid Code(s): E03.9 - HYPOTHYROIDISM, UNSPECIFIED Qualifiers: Hypothyroidism type: unspecified Qualified Code(s): E03.9 - Hypothyroidism , unspecified 6 pnaumonia patients sputum positive plan will start him on ceftriaxone await for identification of the organism once we have that then will decide further plan rest as per the team
--- NOTE | 2018-09-19 18:19 | PN ---
Progress Note (short form) - Note Progress Note: Patient seen in follow up. No new complaints. No significant events overnight. Still breathless on exertion, but overall improving. Inpatient Meds reviewed. On Examination: Vital Signs Temperature 98.4 F 09/18/18 09:00 Pulse Rate 76 09/18/18 09:00 Respiratory Rate 18 09/18/18 09:00 Blood Pressure 117/75 09/18/18 09:00 O2 Sat by Pulse Oximetry (%) 94 L 09/18/18 10:00 General: In no acute distress, lying comfortably in bed. Extremities: No pallor or icterus. No pedal edema. No palpable lymphadenopathy. Abdomen: Non-distended, non-tender, no palpable organomegaly. Neuro: Alert, oriented, non-focal. Labs: Hb stable circa 7. Assessment. Marked macrocytic anemia of unclear etiology. Usual causes for macrocytosis ruled out. Suspect anemia not solely attributable to renal impairment - high index of suspicion for a myelodysplastic lesion. Will offer bone marrow biopsy when recovered from acute respiratory issue.
[2018-09-19] MEDS: ATORVASTATIN CA 40 MG TABLET (FP) PO SCH (21:33)
[2018-09-19] MEDS: HEPARIN NA (PORCINE) 5,000 UNITS/ML 1ML VIAL SQ SCH (21:34)
[2018-09-20] MEDS: FUROSEMIDE 40 MG/4 ML INJECTABLE VIAL IVPUSH SCH ×3 (05:12→16:24)
[2018-09-20] MEDS: HEPARIN NA (PORCINE) 5,000 UNITS/ML 1ML VIAL SQ SCH ×3 (05:13→22:29)
[2018-09-20] MEDS: LEVOTHYROXINE NA 25 MCG TABLET (FP) PO SCH (06:32)
[2018-09-20] MEDS: INSULIN SLIDING SCALE (NOVOLOG) 1 VIAL SQ SCH ×4 (06:34→22:30)
[2018-09-20] MEDS: ALBUTEROL SO4 2.5/IPRATROPIUM 0.5 INH SOL 3 ML VIAL.NEB. NEB SCH ×4 (08:24→20:25)
[2018-09-20 09:09] LABS: BASO % 0.4 % (0-2.0); EOS % 0.1 % (0-4.5); HEMATOCRIT 23.3 % (35.4-49); HEMOGLOBIN 7.6 GM/dL (11.7-16.9); LYMPH % 17.9 % (8-40); MCH 32.9 pg (25.7-33.7); MCHC 32.6 g/dl (32.0-35.9); MEAN PLT VOLUME 10.1 fl (7.5-11.1); MONO % 28.7 % (3.8-10.2); NEUT % 52.9 % (42.8-82.8); PLATELET COUNT 179 K/MM3 (134-434); RBC 2.31 M/mm3 (4.00-5.60); RDW 22.4 % (11.9-15.9); WHITE BLOOD COUNT 2.8 K/mm3 (4.0-10.0)
[2018-09-20 09:44] LABS: ALBUMIN 2.8 g/dl (3.4-5.0); ALK PHOS 80 U/L (45-117); ANION GAP 5 MMOL/L (8-16); BILIRUBIN,TOTAL 0.5 mg/dL (0.2-1); BLOOD UREA NITROGEN 69 mg/dL (7-18); CALCIUM 8.2 mg/dL (8.5-10.1); CHLORIDE 103 mmol/L (98-107); CO2 32 mmol/L (21-32); CREATININE 2.2 mg/dL (0.55-1.3); GLUCOSE,RANDOM 142 mg/dL (74-106); MAGNESIUM 1.9 mg/dL (1.8-2.4); POTASSIUM 4.5 mmol/L (3.5-5.1); SGOT/AST 19 U/L (15-37); SGPT/ALT 33 U/L (13-61); SODIUM 140 mmol/L (136-145); TOT PROT 6.1 g/dl (6.4-8.2)
[2018-09-20] MEDS ORDERED: PT OWN MED DRAWER 7, Y5N ONE ×3 (10:02→22:24)
[2018-09-20] MEDS ORDERED: DEXTROSE 5%-WATER - 50 ML IVPB ONE (10:03)
[2018-09-20] MEDS ORDERED: cefTRIAXone SODIUM 1 GM VIAL ONE (10:03)
[2018-09-20] MEDS: ISOSORBIDE MONONITRATE 30 MG TAB.SR.24H (FP) PO SCH (10:13)
[2018-09-20] MEDS: LOSARTAN POTASSIUM 25 MG TABLET PO SCH (10:13)
[2018-09-20] MEDS: hydrALAZINE HCL 25 MG TABLET (FP) PO SCH ×2 (10:13→22:32)
[2018-09-20] MEDS: CYANOCOBALAMIN 1,000 MCG TABLET (FP) PO SCH (10:13)
[2018-09-20] MEDS: GABAPENTIN 100 MG CAPSULE (FP) PO SCH ×2 (10:13→22:31)
[2018-09-20] MEDS: TAMSULOSIN HCL 0.4 MG CAP PO SCH (10:13)
[2018-09-20] MEDS: PANTOPRAZOLE 40 MG TABLET (FP) PO SCH (10:13)
[2018-09-20] MEDS: MAGNESIUM OXIDE 400 MG TABLET (FP) PO SCH ×2 (10:14→22:32)
[2018-09-20] MEDS: MULTIVITAMINS (DAILY MVI) TABLET (FP) PO SCH (10:14)
[2018-09-20] MEDS: CEFTRIAXONE 1 GM in DEXTROSE 5%-WATER - 50 ML IVPB SCH (10:14)
[2018-09-20] MEDS: BUDESONIDE/FORMETEROL FUMARATE 160/4.5 mcg INHALER IH SCH ×2 (10:16→22:32)
--- NOTE | 2018-09-20 10:40 | PN ---
Physical Exam: SUBJECTIVE: Patient seen and examined OBJECTIVE: Vital Signs Period Temp Pulse Resp BP Sys/Stoner Pulse Ox Last 24 Hr 97.8 F-98.7 F 80-86 17-22 114-125/60-77 96 GENERAL: The patient is awake, alert, and fully oriented, in no acute distress. HEAD: Normal with no signs of trauma. EYES: PERRL, extraocular movements intact, sclera anicteric, conjunctiva clear. No ptosis. ENT: Ears normal, nares patent, oropharynx clear without exudates, moist mucous membranes. NECK: Trachea midline, full range of motion, supple. LUNGS: Breath sounds equal, clear to auscultation bilaterally, no wheezes, no crackles, no accessory muscle use. HEART: Regular rate and rhythm, S1, S2 without murmur, rub or gallop. ABDOMEN: Soft, nontender, nondistended, normoactive bowel sounds, no guarding, no rebound, no hepatosplenomegaly, no masses. EXTREMITIES: 2+ pulses, warm, well-perfused, no edema. NEUROLOGICAL: Cranial nerves II through XII grossly intact. Normal speech, gait not observed. PSYCH: Normal mood, normal affect. SKIN: Warm, dry, normal turgor, no rashes or lesions noted Laboratory Results - last 24 hr 09/19/18 09/19/18 09/19/18 10:42 11:31 15:06 WBC RBC Hgb Hct MCV MCH MCHC RDW Plt Count MPV Absolute Neuts (auto) Neutrophils % Lymphocytes % Monocytes % Eosinophils % Basophils % Nucleated RBC % Puncture Site Right radial ABG pH 7.41 ABG pCO2 at Pt Temp 51.1 H D ABG pO2 at Pt Temp 122.0 H D ABG HCO3 31.4 H ABG O2 Sat (Measured) 98.7 ABG O2 Content 10.2 L ABG Base Excess 6.5 H Freedom Test Positive Oxygen Flow Rate Yes Sodium Potassium Chloride Carbon Dioxide Anion Gap BUN Creatinine Creat Clearance w eGFR POC Glucometer 194 Random Glucose Calcium Magnesium Total Bilirubin AST ALT Alkaline Phosphatase Total Protein Albumin Blood Type A POSITIVE Antibody Screen Negative Crossmatch See Detail 09/19/18 09/19/18 09/20/18 17:16 22:01 05:16 WBC RBC Hgb Hct MCV MCH MCHC RDW Plt Count MPV Absolute Neuts (auto) Neutrophils % Lymphocytes % Monocytes % Eosinophils % Basophils % Nucleated RBC % Puncture Site ABG pH ABG pCO2 at Pt Temp ABG pO2 at Pt Temp ABG HCO3 ABG O2 Sat (Measured) ABG O2 Content ABG Base Excess Freedom Test Oxygen Flow Rate Sodium Potassium Chloride Carbon Dioxide Anion Gap BUN Creatinine Creat Clearance w eGFR POC Glucometer 172 239 201 Random Glucose Calcium Magnesium Total Bilirubin AST ALT Alkaline Phosphatase Total Protein Albumin Blood Type Antibody Screen Crossmatch 09/20/18 09/20/18 08:45 08:45 WBC 2.8 L RBC 2.31 L Hgb 7.6 L Hct 23.3 L MCV 101.0 H MCH 32.9 MCHC 32.6 RDW 22.4 H Plt Count 179 MPV 10.1 Absolute Neuts (auto) 1.5 Neutrophils % 52.9 Lymphocytes % 17.9 D Monocytes % 28.7 H Eosinophils % 0.1 D Basophils % 0.4 Nucleated RBC % 0 Puncture Site ABG pH ABG pCO2 at Pt Temp ABG pO2 at Pt Temp ABG HCO3 ABG O2 Sat (Measured) ABG O2 Content ABG Base Excess Freedom Test Oxygen Flow Rate Sodium 140 Potassium 4.5 Chloride 103 Carbon Dioxide 32 Anion Gap 5 L BUN 69 H Creatinine 2.2 H Creat Clearance w eGFR 30.00 POC Glucometer Random Glucose 142 H Calcium 8.2 L Magnesium 1.9 Total Bilirubin 0.5 AST 19 ALT 33 Alkaline Phosphatase 80 Total Protein 6.1 L Albumin 2.8 L Blood Type Antibody Screen Crossmatch Active Medications Generic Name Dose Route Start Last Admin Trade Name Freq PRN Reason Stop Dose Admin Albuterol/Ipratropium 1 amp 09/18/18 16:00 09/20/18 08:24 Duoneb - NEB 1 amp RQID AURELIO Administration Atorvastatin Calcium 40 mg 09/16/18 22:00 09/19/18 21:33 Lipitor - PO 40 mg HS AURELIO Administration Budesonide/Formoterol Fumarate 1 puff 09/16/18 22:00 09/20/18 10:16 Symbicort 160/4.5mcg - IH 1 puff BID AURELIO Administration Cyanocobalamin 1,000 mcg 09/17/18 10:00 09/20/18 10:13 Vitamin B12 - PO 1,000 mcg DAILY AURELIO Administration Furosemide 40 mg 09/20/18 06:00 09/20/18 05:12 Lasix Injection - IVPUSH 40 mg BID@0600,1400 AURELIO Administration Gabapentin 100 mg 09/17/18 22:00 09/20/18 10:13 Neurontin - PO 100 mg BID AURELIO Administration Heparin Sodium (Porcine) 5,000 unit 09/19/18 22:00 09/20/18 05:13 Heparin - SQ 5,000 unit TID AURELIO Administration Hydralazine HCl 25 mg 09/16/18 22:00 09/20/18 10:13 Apresoline - PO 25 mg BID AURELIO Administration Ceftriaxone Sodium 1 gm/ 50 mls @ 100 mls/hr 09/20/18 10:00 09/20/18 10:14 Dextrose IVPB 100 mls/hr DAILY AURELIO Administration Protocol Insulin Aspart 1 vial 09/16/18 16:30 09/20/18 06:34 Novolog Vial Sliding Scale - SQ 4 units ACHS AUERLIO Administration Protocol Isosorbide Mononitrate 30 mg 09/17/18 10:00 09/20/18 10:13 Imdur - PO 30 mg DAILY AURELIO Administration Levothyroxine Sodium 25 mcg 09/17/18 07:00 09/20/18 06:32 Synthroid - PO 25 mcg DAILY@0700 AURELIO Administration Losartan Potassium 25 mg 09/17/18 10:00 09/20/18 10:13 Cozaar - PO 25 mg DAILY AURELIO Administration Magnesium Oxide 400 mg 09/17/18 22:00 09/20/18 10:14 Mag-Ox - PO 400 mg BID AURELIO Administration Metoprolol Succinate 75 mg 09/17/18 17:15 09/20/18 10:14 Toprol Xl - PO 75 mg DAILY AURELIO Administration Multivitamins/Minerals/Vitamin C 1 tab 09/17/18 10:00 09/20/18 10:14 Tab-A-Vit - PO 1 tab DAILY AURELIO Administration Pantoprazole Sodium 40 mg 09/17/18 10:00 09/20/18 10:13 Protonix - PO 40 mg DAILY AURELIO Administration Tamsulosin HCl 0.4 mg 09/17/18 08:30 09/20/18 10:13 Flomax - PO 0.4 mg DAILY@0830 AURELIO Administration ASSESSMENT/PLAN:
[2018-09-20 11:33] LABS: ANISOCYTOSIS 2+; MACROCYTOSIS 1+; PLATELET ESTIMATE NORMAL
--- NOTE | 2018-09-20 12:16 | PN ---
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 Macrocytic anemia ?mds O2 as ordered(patient has home o2 but uses it sparingly) duo neb ics/laba diuretics no need for systemic steroids at this time smoking cessation/encourage use of 02 Hemr f/u for possible bone marrow R BLANCHE FAUSTIN Problem List - Problems (1) BPH (benign prostatic hyperplasia) Code(s): N40.0 - BENIGN PROSTATIC HYPERPLASIA WITHOUT LOWER URINRY TRACT SYMP (2) COPD exacerbation Code(s): J44.1 - CHRONIC OBSTRUCTIVE PULMONARY DISEASE W (ACUTE) EXACERBATION (3) Dyslipidemia (high LDL; low HDL) Code(s): E78.5 - HYPERLIPIDEMIA, UNSPECIFIED (4) HTN (hypertension) Code(s): I10 - ESSENTIAL (PRIMARY) HYPERTENSION (5) Heart failure Code(s): I50.9 - HEART FAILURE, UNSPECIFIED Qualifiers: Heart failure type: combined systolic and diastolic Heart failure chronicity: acute on chronic Qualified Code(s): I50.43 - Acute on chronic combined systolic (congestive) and diastolic (congestive) heart failure (6) Nephrotic range proteinuria Code(s): R80.9 - PROTEINURIA, UNSPECIFIED (7) Non-insulin dependent type 2 diabetes mellitus Code(s): E11.9 - TYPE 2 DIABETES MELLITUS WITHOUT COMPLICATIONS (8) Shortness of breath Code(s): R06.02 - SHORTNESS OF BREATH (9) CKD (chronic kidney disease) Code(s): N18.9 - CHRONIC KIDNEY DISEASE, UNSPECIFIED Qualifiers: Chronic kidney disease stage: stage 3 (moderate) Qualified Code(s): N18.3 - Chronic kidney disease, stage 3 (moderate) (10) Anemia Code(s): D64.9 - ANEMIA, UNSPECIFIED Qualifiers: Anemia type: other cause Other causes of anemia: other cause, not classified Qualified Code(s): D64.89 - Other specified anemias (11) Cardiomyopathy as manifestation of underlying disease Code(s): I43 - CARDIOMYOPATHY IN DISEASES CLASSIFIED ELSEWHERE (12) Diastolic dysfunction Code(s): I51.9 - HEART DISEASE, UNSPECIFIED
--- NOTE | 2018-09-20 13:17 | PN ---
Progress Note, Physician Chief Complaint: No new events Sitting on the edge of bed History of Present Illness: Patient was seen and examined. Awake and alert. Chart was reviewed Denies chest pain. Intermittent SOB and cough, but feels better - Current Medication List Current Medications: Active Medications Albuterol/Ipratropium (Duoneb -) 1 amp NEB RQID [facility] Last Admin: 09/20/18 12:13 Dose: Not Given Atorvastatin Calcium (Lipitor -) 40 mg PO HS [facility] Last Admin: 09/19/18 21:33 Dose: 40 mg Budesonide/Formoterol Fumarate (Symbicort 160/4.5mcg -) 1 puff IH BID [facility] Last Admin: 09/20/18 10:16 Dose: 1 puff Cyanocobalamin (Vitamin B12 -) 1,000 mcg PO DAILY [facility] Last Admin: 09/20/18 10:13 Dose: 1,000 mcg Furosemide (Lasix Injection -) 40 mg IVPUSH BID@0600,1400 [facility] Last Admin: 09/20/18 05:12 Dose: 40 mg Gabapentin (Neurontin -) 100 mg PO BID [facility] Last Admin: 09/20/18 10:13 Dose: 100 mg Heparin Sodium (Porcine) (Heparin -) 5,000 unit SQ TID [facility] Last Admin: 09/20/18 05:13 Dose: 5,000 unit Hydralazine HCl (Apresoline -) 25 mg PO BID [facility] Last Admin: 09/20/18 10:13 Dose: 25 mg Ceftriaxone Sodium 1 gm/ (Dextrose) 50 mls @ 100 mls/hr IVPB DAILY [facility]; Protocol Last Admin: 09/20/18 10:14 Dose: 100 mls/hr Insulin Aspart (Novolog Vial Sliding Scale -) 1 vial SQ ACHS [facility]; Protocol Last Admin: 09/20/18 11:30 Dose: 2 units Isosorbide Mononitrate (Imdur -) 30 mg PO DAILY [facility] Last Admin: 09/20/18 10:13 Dose: 30 mg Levothyroxine Sodium (Synthroid -) 25 mcg PO DAILY@0700 [facility] Last Admin: 09/20/18 06:32 Dose: 25 mcg Losartan Potassium (Cozaar -) 25 mg PO DAILY [facility] Last Admin: 09/20/18 10:13 Dose: 25 mg Magnesium Oxide (Mag-Ox -) 400 mg PO BID [facility] Last Admin: 09/20/18 10:14 Dose: 400 mg Metoprolol Succinate (Toprol Xl -) 75 mg PO DAILY [facility] Last Admin: 09/20/18 10:14 Dose: 75 mg Multivitamins/Minerals/Vitamin C (Tab-A-Vit -) 1 tab PO DAILY [facility] Last Admin: 09/20/18 10:14 Dose: 1 tab Pantoprazole Sodium (Protonix -) 40 mg PO DAILY [facility] Last Admin: 09/20/18 10:13 Dose: 40 mg Tamsulosin HCl (Flomax -) 0.4 mg PO DAILY@0830 [facility] Last Admin: 09/20/18 10:13 Dose: 0.4 mg - Objective Vital Signs: Vital Signs Temperature 98.6 F 09/20/18 10:00 Pulse Rate 83 09/20/18 10:00 Respiratory Rate 18 09/20/18 10:00 Blood Pressure 122/72 09/20/18 10:00 O2 Sat by Pulse Oximetry (%) 96 09/19/18 21:00 Eyes: Yes: PERRL HENT: Yes: Atraumatic Neck: Yes: Supple Cardiovascular: Yes: Regular Rate and Rhythm, S1, S2 Respiratory: Yes: CTA Bilaterally Gastrointestinal: Yes: Normal Bowel Sounds, Soft. No: Tenderness Extremities: Yes: Amputation Edema: Yes Edema: RLE: 1+ Labs: CBC, BMP 09/20/18 08:45 09/20/18 08:45 INR, PTT INR 1.16 (0.83-1.09) H 09/14/18 05:30 Problem List - Problems (1) COPD exacerbation Code(s): J44.1 - CHRONIC OBSTRUCTIVE PULMONARY DISEASE W (ACUTE) EXACERBATION (2) Dyslipidemia (high LDL; low HDL) Code(s): E78.5 - HYPERLIPIDEMIA, UNSPECIFIED (3) HTN (hypertension) Code(s): I10 - ESSENTIAL (PRIMARY) HYPERTENSION (4) Mitral valve regurgitation Code(s): I34.0 - NONRHEUMATIC MITRAL (VALVE) INSUFFICIENCY (5) Nephrotic range proteinuria Code(s): R80.9 - PROTEINURIA, UNSPECIFIED (6) Non-insulin dependent type 2 diabetes mellitus Code(s): E11.9 - TYPE 2 DIABETES MELLITUS WITHOUT COMPLICATIONS (7) Shortness of breath Code(s): R06.02 - SHORTNESS OF BREATH (8) CKD (chronic kidney disease) Code(s): N18.9 - CHRONIC KIDNEY DISEASE, UNSPECIFIED Qualifiers: Chronic kidney disease stage: stage 3 (moderate) Qualified Code(s): N18.3 - Chronic kidney disease, stage 3 (moderate) (9) Anemia Code(s): D64.9 - ANEMIA, UNSPECIFIED Qualifiers: Anemia type: other cause Other causes of anemia: other cause, not classified Qualified Code(s): D64.89 - Other specified anemias (10) Diastolic dysfunction Code(s): I51.9 - HEART DISEASE, UNSPECIFIED (11) Hypothyroid Code(s): E03.9 - HYPOTHYROIDISM, UNSPECIFIED Qualifiers: Hypothyroidism type: unspecified Qualified Code(s): E03.9 - Hypothyroidism , unspecified Assessment/Plan 1. BRAGG due to acute exacerbation of moderate to severe COPD 2. Acute on chronic diastolic/systolic failure 3. Anemia post transfusion, ? MDS vs multiple myeloma 4. CKD with proteinuria - nephrotic and history of hyperkalemia 5. HTN 6. Type 2 DM 7. hypothyroidism 8. Hypercholesterolemia 9. Abnormal LFT from hepatic congestion 10. Pulmonary nodule and history of laryngeal cancer s/p XRT and chemotherapy 11. Left BKA PLAN: 1. Continue diuresis PO with monitor renal function and electrolytes 2. Continue bronchodilators, inhaled steroids, O2 as needed 3. Continue ASA 81 qd, Lipitor 40 qhs, Losartan 25 mg QD, Hydralazine 25 mg BID and Toprol XL 75 mg QD as tolerated 4. Monitor H/H and transfuse PRBC as needed. H/H better Further plans are to follow Aman Zavala MD
--- NOTE | 2018-09-20 13:40 | PN ---
Progress Note, Physician History of Present Illness: stable no new issues sputum noted - Current Medication List Current Medications: Active Medications Albuterol/Ipratropium (Duoneb -) 1 amp NEB RQID [facility] Last Admin: 09/20/18 12:13 Dose: Not Given Atorvastatin Calcium (Lipitor -) 40 mg PO HS [facility] Last Admin: 09/19/18 21:33 Dose: 40 mg Budesonide/Formoterol Fumarate (Symbicort 160/4.5mcg -) 1 puff IH BID [facility] Last Admin: 09/20/18 10:16 Dose: 1 puff Cyanocobalamin (Vitamin B12 -) 1,000 mcg PO DAILY [facility] Last Admin: 09/20/18 10:13 Dose: 1,000 mcg Furosemide (Lasix Injection -) 40 mg IVPUSH BID@0600,1400 [facility] Last Admin: 09/20/18 05:12 Dose: 40 mg Gabapentin (Neurontin -) 100 mg PO BID [facility] Last Admin: 09/20/18 10:13 Dose: 100 mg Heparin Sodium (Porcine) (Heparin -) 5,000 unit SQ TID [facility] Last Admin: 09/20/18 05:13 Dose: 5,000 unit Hydralazine HCl (Apresoline -) 25 mg PO BID [facility] Last Admin: 09/20/18 10:13 Dose: 25 mg Ceftriaxone Sodium 1 gm/ (Dextrose) 50 mls @ 100 mls/hr IVPB DAILY [facility]; Protocol Last Admin: 09/20/18 10:14 Dose: 100 mls/hr Insulin Aspart (Novolog Vial Sliding Scale -) 1 vial SQ ACHS [facility]; Protocol Last Admin: 09/20/18 11:30 Dose: 2 units Isosorbide Mononitrate (Imdur -) 30 mg PO DAILY [facility] Last Admin: 09/20/18 10:13 Dose: 30 mg Levothyroxine Sodium (Synthroid -) 25 mcg PO DAILY@0700 [facility] Last Admin: 09/20/18 06:32 Dose: 25 mcg Losartan Potassium (Cozaar -) 25 mg PO DAILY [facility] Last Admin: 09/20/18 10:13 Dose: 25 mg Magnesium Oxide (Mag-Ox -) 400 mg PO BID [facility] Last Admin: 09/20/18 10:14 Dose: 400 mg Metoprolol Succinate (Toprol Xl -) 75 mg PO DAILY [facility] Last Admin: 09/20/18 10:14 Dose: 75 mg Multivitamins/Minerals/Vitamin C (Tab-A-Vit -) 1 tab PO DAILY [facility] Last Admin: 09/20/18 10:14 Dose: 1 tab Pantoprazole Sodium (Protonix -) 40 mg PO DAILY [facility] Last Admin: 09/20/18 10:13 Dose: 40 mg Tamsulosin HCl (Flomax -) 0.4 mg PO DAILY@0830 [facility] Last Admin: 09/20/18 10:13 Dose: 0.4 mg - Objective Vital Signs: Vital Signs Temperature 98.6 F 09/20/18 10:00 Pulse Rate 83 09/20/18 10:00 Respiratory Rate 18 09/20/18 10:00 Blood Pressure 122/72 09/20/18 10:00 O2 Sat by Pulse Oximetry (%) 96 09/19/18 21:00 Constitutional: Yes: No Distress, Calm Cardiovascular: Yes: S1, S2 Respiratory: Yes: Regular, CTA Bilaterally Gastrointestinal: Yes: Normal Bowel Sounds, Soft Musculoskeletal: Yes: WNL Extremities: Yes: WNL Neurological: Yes: Alert, Oriented Psychiatric: Yes: Alert, Oriented Labs: CBC, BMP 09/20/18 08:45 09/20/18 08:45 INR, PTT INR 1.16 (0.83-1.09) H 09/14/18 05:30 Assessment/Plan Problem List - Problems (1) Nephrotic range proteinuria Code(s): R80.9 - PROTEINURIA, UNSPECIFIED (2) Heart failure Code(s): I50.9 - HEART FAILURE, UNSPECIFIED Qualifiers: Heart failure type: combined systolic and diastolic Heart failure chronicity: acute on chronic Qualified Code(s): I50.43 - Acute on chronic combined systolic (congestive) and diastolic (congestive) heart failure (3) CKD (chronic kidney disease) Code(s): N18.9 - CHRONIC KIDNEY DISEASE, UNSPECIFIED Qualifiers: Chronic kidney disease stage: stage 3 (moderate) Qualified Code(s): N18.3 - Chronic kidney disease, stage 3 (moderate) (4) Cardiomyopathy as manifestation of underlying disease Code(s): I43 - CARDIOMYOPATHY IN DISEASES CLASSIFIED ELSEWHERE (5) Hypothyroid Code(s): E03.9 - HYPOTHYROIDISM, UNSPECIFIED Qualifiers: Hypothyroidism type: unspecified Qualified Code(s): E03.9 - Hypothyroidism , unspecified 6 pnaumonia patients sputum positive plan sputum cx noted will continue ceftriaxone rest as per the team cardio on case
[2018-09-20] MEDS ORDERED: METOLAZONE 2.5 MG TABLET (FP) PO ONE (13:51)
--- NOTE | 2018-09-20 13:51 | PN ---
Progress Note, Physician History of Present Illness: Pt seen and examined at bedside. He is awake and alert. He complains of edema. - Current Medication List Current Medications: Active Medications Albuterol/Ipratropium (Duoneb -) 1 amp NEB RQID [facility] Last Admin: 09/20/18 12:13 Dose: Not Given Atorvastatin Calcium (Lipitor -) 40 mg PO HS [facility] Last Admin: 09/19/18 21:33 Dose: 40 mg Budesonide/Formoterol Fumarate (Symbicort 160/4.5mcg -) 1 puff IH BID [facility] Last Admin: 09/20/18 10:16 Dose: 1 puff Cyanocobalamin (Vitamin B12 -) 1,000 mcg PO DAILY [facility] Last Admin: 09/20/18 10:13 Dose: 1,000 mcg Furosemide (Lasix Injection -) 40 mg IVPUSH BID@0600,1400 [facility] Last Admin: 09/20/18 05:12 Dose: 40 mg Gabapentin (Neurontin -) 100 mg PO BID [facility] Last Admin: 09/20/18 10:13 Dose: 100 mg Heparin Sodium (Porcine) (Heparin -) 5,000 unit SQ TID [facility] Last Admin: 09/20/18 05:13 Dose: 5,000 unit Hydralazine HCl (Apresoline -) 25 mg PO BID [facility] Last Admin: 09/20/18 10:13 Dose: 25 mg Ceftriaxone Sodium 1 gm/ (Dextrose) 50 mls @ 100 mls/hr IVPB DAILY [facility]; Protocol Last Admin: 09/20/18 10:14 Dose: 100 mls/hr Insulin Aspart (Novolog Vial Sliding Scale -) 1 vial SQ ACHS [facility]; Protocol Last Admin: 09/20/18 11:30 Dose: 2 units Isosorbide Mononitrate (Imdur -) 30 mg PO DAILY [facility] Last Admin: 09/20/18 10:13 Dose: 30 mg Levothyroxine Sodium (Synthroid -) 25 mcg PO DAILY@0700 [facility] Last Admin: 09/20/18 06:32 Dose: 25 mcg Losartan Potassium (Cozaar -) 25 mg PO DAILY [facility] Last Admin: 09/20/18 10:13 Dose: 25 mg Magnesium Oxide (Mag-Ox -) 400 mg PO BID [facility] Last Admin: 09/20/18 10:14 Dose: 400 mg Metoprolol Succinate (Toprol Xl -) 75 mg PO DAILY [facility] Last Admin: 09/20/18 10:14 Dose: 75 mg Multivitamins/Minerals/Vitamin C (Tab-A-Vit -) 1 tab PO DAILY [facility] Last Admin: 09/20/18 10:14 Dose: 1 tab Pantoprazole Sodium (Protonix -) 40 mg PO DAILY [facility] Last Admin: 09/20/18 10:13 Dose: 40 mg Tamsulosin HCl (Flomax -) 0.4 mg PO DAILY@0830 [facility] Last Admin: 09/20/18 10:13 Dose: 0.4 mg - Objective Vital Signs: Vital Signs Temperature 98.6 F 09/20/18 10:00 Pulse Rate 83 09/20/18 10:00 Respiratory Rate 18 09/20/18 10:00 Blood Pressure 122/72 09/20/18 10:00 O2 Sat by Pulse Oximetry (%) 96 09/19/18 21:00 Constitutional: Yes: Calm Eyes: Yes: Conjunctiva Clear HENT: Yes: Atraumatic Cardiovascular: Yes: S1, S2 Respiratory: Yes: On Nasal O2, Wheezes Gastrointestinal: Yes: Soft Genitourinary: Yes: WNL Musculoskeletal: Yes: Other (left bka) Edema: Yes Edema: RLE: 1+ Neurological: Yes: Oriented Psychiatric: Yes: Oriented Labs: CBC, BMP 09/20/18 08:45 09/20/18 08:45 INR, PTT INR 1.16 (0.83-1.09) H 09/14/18 05:30 Problem List - Problems (1) COPD exacerbation Code(s): J44.1 - CHRONIC OBSTRUCTIVE PULMONARY DISEASE W (ACUTE) EXACERBATION (2) Heart failure Code(s): I50.9 - HEART FAILURE, UNSPECIFIED Qualifiers: Heart failure type: combined systolic and diastolic Heart failure chronicity: acute on chronic Qualified Code(s): I50.43 - Acute on chronic combined systolic (congestive) and diastolic (congestive) heart failure (3) Nephrotic range proteinuria Code(s): R80.9 - PROTEINURIA, UNSPECIFIED (4) CKD (chronic kidney disease) Code(s): N18.9 - CHRONIC KIDNEY DISEASE, UNSPECIFIED Qualifiers: Chronic kidney disease stage: stage 3 (moderate) Qualified Code(s): N18.3 - Chronic kidney disease, stage 3 (moderate) Assessment/Plan Current Medications Generic Name Dose Route Start Last Admin Trade Name [place] PRN Reason Stop Dose Admin Albuterol/Ipratropium 1 amp 09/18/18 16:00 09/20/18 12:13 Duoneb - NEB Not Given RQID AURELIO Atorvastatin Calcium 40 mg 09/16/18 22:00 09/19/18 21:33 Lipitor - PO 40 mg HS AURELIO Administration Budesonide/Formoterol Fumarate 1 puff 09/16/18 22:00 09/20/18 10:16 Symbicort 160/4.5mcg - IH 1 puff BID AURELIO Administration Cyanocobalamin 1,000 mcg 09/17/18 10:00 09/20/18 10:13 Vitamin B12 - PO 1,000 mcg DAILY [facility]URELIO Administration Furosemide 40 mg 09/20/18 06:00 09/20/18 05:12 Lasix Injection - IVPUSH 40 mg BID@0600,1400 [facility] Administration Gabapentin 100 mg 09/17/18 22:00 09/20/18 10:13 Neurontin - PO 100 mg BID [facility]URELIO Administration Heparin Sodium (Porcine) 5,000 unit 09/19/18 22:00 09/20/18 05:13 Heparin - SQ 5,000 unit TID AURELIO Administration Hydralazine HCl 25 mg 09/16/18 22:00 09/20/18 10:13 Apresoline - PO 25 mg BID [facility]LIO Administration Ceftriaxone Sodium 1 gm/ 50 mls @ 100 mls/hr 09/20/18 10:00 09/20/18 10:14 Dextrose IVPB 100 mls/hr DAILY [facility] Administration Protocol Insulin Aspart 1 vial 09/16/18 16:30 09/20/18 11:30 Novolog Vial Sliding Scale - SQ 2 units ACHS [facility]URELIO Administration Protocol Isosorbide Mononitrate 30 mg 09/17/18 10:00 09/20/18 10:13 Imdur - PO 30 mg DAILY [facility] Administration Levothyroxine Sodium 25 mcg 09/17/18 07:00 09/20/18 06:32 Synthroid - PO 25 mcg DAILY@0700 [facility] Administration Losartan Potassium 25 mg 09/17/18 10:00 09/20/18 10:13 Cozaar - PO 25 mg DAILY [facility] Administration Magnesium Oxide 400 mg 09/17/18 22:00 09/20/18 10:14 Mag-Ox - PO 400 mg BID [facility] Administration Metoprolol Succinate 75 mg 09/17/18 17:15 09/20/18 10:14 Toprol Xl - PO 75 mg DAILY [facility] Administration Multivitamins/Minerals/Vitamin C 1 tab 09/17/18 10:00 09/20/18 10:14 Tab-A-Vit - PO 1 tab DAILY [facility] Administration Pantoprazole Sodium 40 mg 09/17/18 10:00 09/20/18 10:13 Protonix - PO 40 mg DAILY [facility] Administration Tamsulosin HCl 0.4 mg 09/17/18 08:30 09/20/18 10:13 Flomax - PO 0.4 mg DAILY@0830 [facility] Administration Impression 1. CKD 2. anemia 3. history of hyperkalemia 4. HTN 5. DM 6. hypothyroidism 7. HLD 8. copd 9. proteinuria - nephrotic 10. active smoker 11. fluid overload Plan - will give a dose of metolazone - cont lasix - recommend kidney biopsy but he is refusing - pt tolerating arb - monitor hg - restrict fluid intake - low potassium diet - myeloma workup, oncology follow up - will follow Dr Haley
--- NOTE | 2018-09-20 16:59 | PN ---
Physical Exam: SUBJECTIVE: Patient seen and examined. He reports mild sob which has improved with a nebulizer treatment. He denies chest pain, dizziness, palpitations, fever, abdominal pain, nausea, vomiting, diarrhea/constipation. He reports an abrasion to his right lower foot second toe finger. OBJECTIVE: Vital Signs Period Temp Pulse Resp BP Sys/Stoner Pulse Ox Last 24 Hr 97.8 F-98.6 F 83-86 17-20 110-122/60-72 94-96 GENERAL:patient is awake, alert, and fully oriented, in no acute distress HEAD: normal with no signs of trauma NECK: supple LUNGS:breath sounds diminished bilaterally, no wheezes no use of accessory muscles HEART: regular rate and rhythm, S1, S2 without murmur ABDOMEN: soft nontender on palpation, distended EXTREMITIES: right lower extremity with 2 + edema, Left lower extremity with left BKA NEUROLOGICAL:no focal deficits PSYCH: normal mood, normal affect and cooperative SKIN: warm, dry, small 2mm abrasion noted to right foot second toe, no erythema , no purulence noted Laboratory Results - last 24 hr 09/19/18 09/19/18 09/19/18 15:06 17:16 22:01 WBC RBC Hgb Hct MCV MCH MCHC RDW Plt Count MPV Absolute Neuts (auto) Neutrophils % Neutrophils % (Manual) Band Neutrophils % Lymphocytes % Lymphocytes % (Manual) Monocytes % Monocytes % (Manual) Eosinophils % Eosinophils % (Manual) Basophils % Basophils % (Manual) Myelocytes % (Man) Promyelocytes % (Man) Blast Cells % (Manual) Nucleated RBC % Metamyelocytes Hypochromia Platelet Estimate Polychromasia Poikilocytosis Anisocytosis Microcytosis Macrocytosis Fragmented RBCs Puncture Site Right radial ABG pH 7.41 ABG pCO2 at Pt Temp 51.1 H D ABG pO2 at Pt Temp 122.0 H D ABG HCO3 31.4 H ABG O2 Sat (Measured) 98.7 ABG O2 Content 10.2 L ABG Base Excess 6.5 H Freedom Test Positive Oxygen Flow Rate Yes Sodium Potassium Chloride Carbon Dioxide Anion Gap BUN Creatinine Creat Clearance w eGFR POC Glucometer 172 239 Random Glucose Calcium Magnesium Total Bilirubin AST ALT Alkaline Phosphatase Total Protein Albumin 09/20/18 09/20/18 09/20/18 05:16 08:45 08:45 WBC 2.8 L RBC 2.31 L Hgb 7.6 L Hct 23.3 L MCV 101.0 H MCH 32.9 MCHC 32.6 RDW 22.4 H Plt Count 179 MPV 10.1 Absolute Neuts (auto) 1.5 Neutrophils % 52.9 Neutrophils % (Manual) 51.5 D Band Neutrophils % 0.0 Lymphocytes % 17.9 D Lymphocytes % (Manual) 20.2 D Monocytes % 28.7 H Monocytes % (Manual) 28 H Eosinophils % 0.1 D Eosinophils % (Manual) 0.0 Basophils % 0.4 Basophils % (Manual) 0.0 Myelocytes % (Man) 0 Promyelocytes % (Man) 0 Blast Cells % (Manual) 0 Nucleated RBC % 0 Metamyelocytes 0 Hypochromia 1+ Platelet Estimate Normal Polychromasia 1+ Poikilocytosis 0 Anisocytosis 2+ Microcytosis 0 Macrocytosis 1+ Fragmented RBCs 1+ Puncture Site ABG pH ABG pCO2 at Pt Temp ABG pO2 at Pt Temp ABG HCO3 ABG O2 Sat (Measured) ABG O2 Content ABG Base Excess Freedom Test Oxygen Flow Rate Sodium 140 Potassium 4.5 Chloride 103 Carbon Dioxide 32 Anion Gap 5 L BUN 69 H Creatinine 2.2 H Creat Clearance w eGFR 30.00 POC Glucometer 201 Random Glucose 142 H Calcium 8.2 L Magnesium 1.9 Total Bilirubin 0.5 AST 19 ALT 33 Alkaline Phosphatase 80 Total Protein 6.1 L Albumin 2.8 L 09/20/18 11:26 WBC RBC Hgb Hct MCV MCH MCHC RDW Plt Count MPV Absolute Neuts (auto) Neutrophils % Neutrophils % (Manual) Band Neutrophils % Lymphocytes % Lymphocytes % (Manual) Monocytes % Monocytes % (Manual) Eosinophils % Eosinophils % (Manual) Basophils % Basophils % (Manual) Myelocytes % (Man) Promyelocytes % (Man) Blast Cells % (Manual) Nucleated RBC % Metamyelocytes Hypochromia Platelet Estimate Polychromasia Poikilocytosis Anisocytosis Microcytosis Macrocytosis Fragmented RBCs Puncture Site ABG pH ABG pCO2 at Pt Temp ABG pO2 at Pt Temp ABG HCO3 ABG O2 Sat (Measured) ABG O2 Content ABG Base Excess Freedom Test Oxygen Flow Rate Sodium Potassium Chloride Carbon Dioxide Anion Gap BUN Creatinine Creat Clearance w eGFR POC Glucometer 175 Random Glucose Calcium Magnesium Total Bilirubin AST ALT Alkaline Phosphatase Total Protein Albumin Active Medications Generic Name Dose Route Start Last Admin Trade Name Freq PRN Reason Stop Dose Admin Albuterol/Ipratropium 1 amp 09/18/18 16:00 09/20/18 16:08 Duoneb - NEB 1 amp RQID AURELIO Administration Atorvastatin Calcium 40 mg 09/16/18 22:00 09/19/18 21:33 Lipitor - PO 40 mg HS AURELIO Administration Budesonide/Formoterol Fumarate 1 puff 09/16/18 22:00 09/20/18 10:16 Symbicort 160/4.5mcg - IH 1 puff BID AURELIO Administration Cyanocobalamin 1,000 mcg 09/17/18 10:00 09/20/18 10:13 Vitamin B12 - PO 1,000 mcg DAILY AURELIO Administration Furosemide 40 mg 09/20/18 06:00 09/20/18 16:24 Lasix Injection - IVPUSH 40 mg BID@0600,1400 AURELIO Administration Gabapentin 100 mg 09/17/18 22:00 09/20/18 10:13 Neurontin - PO 100 mg BID AURELIO Administration Heparin Sodium (Porcine) 5,000 unit 09/19/18 22:00 09/20/18 14:32 Heparin - SQ 5,000 unit TID AURELIO Administration Hydralazine HCl 25 mg 09/16/18 22:00 09/20/18 10:13 Apresoline - PO 25 mg BID AURELIO Administration Ceftriaxone Sodium 1 gm/ 50 mls @ 100 mls/hr 09/20/18 10:00 09/20/18 10:14 Dextrose IVPB 100 mls/hr DAILY AURELIO Administration Protocol Insulin Aspart 1 vial 09/16/18 16:30 09/20/18 16:45 Novolog Vial Sliding Scale - SQ 2 units ACHS AURELIO Administration Protocol Isosorbide Mononitrate 30 mg 09/17/18 10:00 09/20/18 10:13 Imdur - PO 30 mg DAILY AURELIO Administration Levothyroxine Sodium 25 mcg 09/17/18 07:00 09/20/18 06:32 Synthroid - PO 25 mcg DAILY@0700 AURELIO Administration Losartan Potassium 25 mg 09/17/18 10:00 09/20/18 10:13 Cozaar - PO 25 mg DAILY AURELIO Administration Magnesium Oxide 400 mg 09/17/18 22:00 09/20/18 10:14 Mag-Ox - PO 400 mg BID AURELIO Administration Metoprolol Succinate 75 mg 09/17/18 17:15 09/20/18 10:14 Toprol Xl - PO 75 mg DAILY AURELIO Administration Multivitamins/Minerals/Vitamin C 1 tab 09/17/18 10:00 09/20/18 10:14 Tab-A-Vit - PO 1 tab DAILY AURELIO Administration Pantoprazole Sodium 40 mg 09/17/18 10:00 09/20/18 10:13 Protonix - PO 40 mg DAILY AURELIO Administration Tamsulosin HCl 0.4 mg 09/17/18 08:30 09/20/18 10:13 Flomax - PO 0.4 mg DAILY@0830 AURELIO Administration Assessment/Plan: 67 year old male with history of laryngeal cancer treated with radiation therapy and chemotherapy, chronic systolic congestive heart failure, acute on chronic respiratory failure in setting of COPD exacerbation/fluid volume overload, chronic anemia, CKD, hypertension, hyperlipidemia, hypothyroidism, BPH , PAD with left BKA, and active tobacco use who was admitted with shortness of breath. Chronic Systolic Congestive Heart Failure Patient continues to report mild dyspnea and he has signs of fluid volume overload on clinical exam. He is being diuresed with IV lasix 40 mg twice daily with close monitoring of renal studies, electrolytes and strict input and output. He received one dosage of metolazone today. Electrolytes WNL. Echocardiogram with a dilated LV and segemental wall, reduced LV systolic function. Continue long acting metoprolol, losrtan, hydralzine and imdur. Cardiology- Dr. Pappas following. Chronic Anemia Improved after receiving 1 Unit of PRBC's yesterday. Continue to monitor closely. Repeat CBC in am. He is on weekly procrit injections. Will need outpatient workup for myeloma. Hematology following. Leukopenia WBC decreased to 2.8 from 4.9. Continue to monitor closely, afebrile, Hematology and Infectious Diseases- Dr. Alexandra following. COPD No acute exacerbation or hypoxemia. Received one dosage of IV steroid on . Continue with oxygen therapy by nasal canula. Continue with nebulizer treatments(bunesonide, symbicort and albuterol). Pulmonary -Dr. Diaz following. CKD Creatinine 2.2 and stable. Being followed by Nephrology(Dr. Haley) . He is being recommended a renal biopsy in the outpatient setting. Currently on an arb, continue to monitor closely. Hypertension Controlled. No evidence of hypotension. Continue metoprolol succinate, losartan , imdur and hydralazine. Hyperlipidemia Continue atorvastatin. LFT's are normal. BPH Continue tamulosin. Lung Nodule He was previously seen at [facility]. Patient is an active tobacco user. He has a prior history of laryngeal cancer treated with RT and chemotherapy treatment. Aftab need close follow up with Pulmonary in the outpatient setting. Hypothyroidism Continue with synthroid. Diabetes Mellitus Accucheks before meals and at bedtime. Continue with Novolog SSI. Pneumonia Sputum culture with Klebsiella Pneumoniae. He remains afebrile. Leukopenia noted. Continue with IV ceftriaxone. Manage as per Pulmonary. DVT Prophylaxsis Continue with heparin subcutaneous injections. FEN Avoid excessive fluids to avoid acute CHF exacerbation Monitor electrolytes closely in the setting of IV diuresis Low sodium/renal diet Visit type - Emergency Visit Emergency Visit: No - New Patient This patient is new to me today: Yes Date on this admission: 09/20/18 - Critical Care Critical Care patient: No - Discharge Referral Referred to [facility] Med P.C.: No
[2018-09-20] MEDS: ATORVASTATIN CA 40 MG TABLET (FP) PO SCH (22:32)
[2018-09-21 06:31] LABS: BASO % 0.4 % (0-2.0); EOS % 0.6 % (0-4.5); HEMOGLOBIN 7.3 GM/dL (11.7-16.9); LYMPH % 14.3 % (8-40); MCH 33.7 pg (25.7-33.7); MEAN PLT VOLUME 10.5 fl (7.5-11.1); MONO % 30.3 % (3.8-10.2); NEUT % 54.4 % (42.8-82.8); PLATELET COUNT 171 K/MM3 (134-434); RBC 2.15 M/mm3 (4.00-5.60); WHITE BLOOD COUNT 4.5 K/mm3 (4.0-10.0)
[2018-09-21] MEDS: HEPARIN NA (PORCINE) 5,000 UNITS/ML 1ML VIAL SQ SCH ×3 (06:36→21:31)
[2018-09-21] MEDS: FUROSEMIDE 40 MG/4 ML INJECTABLE VIAL IVPUSH SCH ×2 (06:36→14:36)
[2018-09-21] MEDS: LEVOTHYROXINE NA 25 MCG TABLET (FP) PO SCH (06:36)
[2018-09-21] MEDS: INSULIN SLIDING SCALE (NOVOLOG) 1 VIAL SQ SCH ×4 (06:37→21:31)
[2018-09-21 07:02] LABS: ANION GAP 4 MMOL/L (8-16); BLOOD UREA NITROGEN 73 mg/dL (7-18); CALCIUM 7.8 mg/dL (8.5-10.1); CHLORIDE 102 mmol/L (98-107); CO2 34 mmol/L (21-32); CREATININE 2.1 mg/dL (0.55-1.3); GLUCOSE,RANDOM 125 mg/dL (74-106); MAGNESIUM 1.9 mg/dL (1.8-2.4); POTASSIUM 4.6 mmol/L (3.5-5.1); SODIUM 140 mmol/L (136-145)
[2018-09-21] MEDS: ALBUTEROL SO4 2.5/IPRATROPIUM 0.5 INH SOL 3 ML VIAL.NEB. NEB SCH ×4 (07:14→21:21)
--- NOTE | 2018-09-21 09:02 | PN ---
Progress Note, Physician Chief Complaint: Admitted on 09/11 with CHF exacerbation. History of Present Illness: 24 HR events: pt continues to be dyspneic, managed with nebs. H/H 7.6/23.3 on 09/20, s/p 1u PRBC. hemoccult negative x 1 on 09/18. pt dosed metolazone 2.5mg x 1 dose for volume management. This morning, routine labs reveal H/H 7.3/22.0, I unit PRBC ordered. - Current Medication List Current Medications: Active Medications Albuterol/Ipratropium (Duoneb -) 1 amp NEB RQID [facility] Last Admin: 09/21/18 07:14 Dose: 1 amp Atorvastatin Calcium (Lipitor -) 40 mg PO HS [facility] Last Admin: 09/20/18 22:32 Dose: 40 mg Budesonide/Formoterol Fumarate (Symbicort 160/4.5mcg -) 1 puff IH BID [facility] Last Admin: 09/20/18 22:32 Dose: 1 puff Cyanocobalamin (Vitamin B12 -) 1,000 mcg PO DAILY [facility] Last Admin: 09/20/18 10:13 Dose: 1,000 mcg Furosemide (Lasix Injection -) 40 mg IVPUSH BID@0600,1400 [facility] Last Admin: 09/21/18 06:36 Dose: 40 mg Gabapentin (Neurontin -) 100 mg PO BID [facility] Last Admin: 09/20/18 22:31 Dose: 100 mg Heparin Sodium (Porcine) (Heparin -) 5,000 unit SQ TID [facility] Last Admin: 09/21/18 06:36 Dose: 5,000 unit Hydralazine HCl (Apresoline -) 25 mg PO BID [facility] Last Admin: 09/20/18 22:32 Dose: 25 mg Ceftriaxone Sodium 1 gm/ (Dextrose) 50 mls @ 100 mls/hr IVPB DAILY [facility]; Protocol Last Admin: 09/20/18 10:14 Dose: 100 mls/hr Insulin Aspart (Novolog Vial Sliding Scale -) 1 vial SQ ACHS [facility]; Protocol Last Admin: 09/21/18 06:37 Dose: Not Given Isosorbide Mononitrate (Imdur -) 30 mg PO DAILY [facility] Last Admin: 09/20/18 10:13 Dose: 30 mg Levothyroxine Sodium (Synthroid -) 25 mcg PO DAILY@0700 [facility] Last Admin: 09/21/18 06:36 Dose: 25 mcg Losartan Potassium (Cozaar -) 25 mg PO DAILY [facility] Last Admin: 09/20/18 10:13 Dose: 25 mg Magnesium Oxide (Mag-Ox -) 400 mg PO BID [facility] Last Admin: 09/20/18 22:32 Dose: 400 mg Metoprolol Succinate (Toprol Xl -) 75 mg PO DAILY [facility] Last Admin: 09/20/18 10:14 Dose: 75 mg Multivitamins/Minerals/Vitamin C (Tab-A-Vit -) 1 tab PO DAILY [facility] Last Admin: 09/20/18 10:14 Dose: 1 tab Pantoprazole Sodium (Protonix -) 40 mg PO DAILY [facility] Last Admin: 09/20/18 10:13 Dose: 40 mg Tamsulosin HCl (Flomax -) 0.4 mg PO DAILY@0830 [facility] Last Admin: 09/20/18 10:13 Dose: 0.4 mg - Objective Vital Signs: Vital Signs Temperature 97 F L 09/21/18 06:00 Pulse Rate 77 09/21/18 06:00 Respiratory Rate 18 09/21/18 06:00 Blood Pressure 119/71 09/21/18 06:00 O2 Sat by Pulse Oximetry (%) 94 L 09/20/18 21:00 Constitutional: Yes: No Distress, Calm, Cachectic Eyes: Yes: Conjunctiva Clear, EOM Intact HENT: Yes: Atraumatic, Normocephalic Neck: Yes: Supple Cardiovascular: Yes: Regular Rate and Rhythm Respiratory: Yes: Regular, CTA Bilaterally Gastrointestinal: Yes: Normal Bowel Sounds, Soft, Abdomen, Obese, Distention ...Rectal Exam: Yes: Deferred Genitourinary: Yes: Other (voids freely) Extremities: Yes: Amputation (Left BKA) Edema: Yes Edema: RLE: 2+ Peripheral Pulses: Right Dorsalis Pedis: 1+ Integumentary: Yes: WNL Neurological: Yes: Alert, Oriented ...Motor Strength: RLE Psychiatric: Yes: Alert, Oriented Labs: CBC, BMP 09/21/18 05:35 09/21/18 05:35 INR, PTT INR 1.16 (0.83-1.09) H 09/14/18 05:30 Problem List - Problems (1) Prophylactic measure Assessment/Plan: SC heparin BID OOB to chair Ambulate as tolerated vitamin B 12 daily MVI daily Code(s): Z29.9 - ENCOUNTER FOR PROPHYLACTIC MEASURES, UNSPECIFIED (2) BPH (benign prostatic hyperplasia) Assessment/Plan: flomax 0.4mg daily Code(s): N40.0 - BENIGN PROSTATIC HYPERPLASIA WITHOUT LOWER URINRY TRACT SYMP (3) COPD exacerbation Assessment/Plan: symbicort BID continue with duoneb incentive spirometry Code(s): J44.1 - CHRONIC OBSTRUCTIVE PULMONARY DISEASE W (ACUTE) EXACERBATION (4) Dyslipidemia (high LDL; low HDL) Assessment/Plan: lipitor 40mg daily cardiac/diabetic diet Code(s): E78.5 - HYPERLIPIDEMIA, UNSPECIFIED (5) Heart failure Assessment/Plan: as per cardiology, increase lasix 60mg BID and spot dose metolazone 5mg today continue losartan 25mg daily continue Imdur pt would benefit from cardiac PT Code(s): I50.9 - HEART FAILURE, UNSPECIFIED Qualifiers: Heart failure type: combined systolic and diastolic Heart failure chronicity: acute on chronic Qualified Code(s): I50.43 - Acute on chronic combined systolic (congestive) and diastolic (congestive) heart failure (6) Non-insulin dependent type 2 diabetes mellitus Code(s): E11.9 - TYPE 2 DIABETES MELLITUS WITHOUT COMPLICATIONS (7) CKD (chronic kidney disease) Assessment/Plan: strict intake and output trend serum Cr replete electrolyte as needed Code(s): N18.9 - CHRONIC KIDNEY DISEASE, UNSPECIFIED Qualifiers: Chronic kidney disease stage: stage 3 (moderate) Qualified Code(s): N18.3 - Chronic kidney disease, stage 3 (moderate) (8) HTN (hypertension) Assessment/Plan: Control toprol XL Code(s): I10 - ESSENTIAL (PRIMARY) HYPERTENSION Qualifiers: Hypertension type: essential hypertension Qualified Code(s): I10 - Essential (primary) hypertension (9) Hypothyroid Assessment/Plan: synthroid 25mcg qam Code(s): E03.9 - HYPOTHYROIDISM, UNSPECIFIED Qualifiers: Hypothyroidism type: unspecified Qualified Code(s): E03.9 - Hypothyroidism , unspecified (10) Klebsiella pneumonia Assessment/Plan: ceftriaxone 1g switched to augmentin BID by ID trend WBC and temp curve Code(s): J15.0 - PNEUMONIA DUE TO KLEBSIELLA PNEUMONIAE Visit type - Emergency Visit Emergency Visit: Yes ED Registration Date: 09/11/18 Care time: The patient presented to the Emergency Department on the above date and was hospitalized for further evaluation of their emergent condition. - New Patient This patient is new to me today: No - Critical Care Critical Care patient: No - Discharge Referral Referred to [facility] Med P.C.: No
--- NOTE | 2018-09-21 09:31 | PN ---
Progress Note, Physician Chief Complaint: No new events Not in distress History of Present Illness: Patient was seen and examined. Awake and alert. Chart was reviewed Denies chest pain. Intermittent SOB and cough - Current Medication List Current Medications: Active Medications Albuterol/Ipratropium (Duoneb -) 1 amp NEB RQID [facility] Last Admin: 09/21/18 07:14 Dose: 1 amp Atorvastatin Calcium (Lipitor -) 40 mg PO HS [facility] Last Admin: 09/20/18 22:32 Dose: 40 mg Budesonide/Formoterol Fumarate (Symbicort 160/4.5mcg -) 1 puff IH BID [facility] Last Admin: 09/20/18 22:32 Dose: 1 puff Cyanocobalamin (Vitamin B12 -) 1,000 mcg PO DAILY [facility] Last Admin: 09/20/18 10:13 Dose: 1,000 mcg Furosemide (Lasix Injection -) 40 mg IVPUSH BID@0600,1400 [facility] Last Admin: 09/21/18 06:36 Dose: 40 mg Gabapentin (Neurontin -) 100 mg PO BID [facility] Last Admin: 09/20/18 22:31 Dose: 100 mg Heparin Sodium (Porcine) (Heparin -) 5,000 unit SQ TID [facility] Last Admin: 09/21/18 06:36 Dose: 5,000 unit Hydralazine HCl (Apresoline -) 25 mg PO BID [facility] Last Admin: 09/20/18 22:32 Dose: 25 mg Ceftriaxone Sodium 1 gm/ (Dextrose) 50 mls @ 100 mls/hr IVPB DAILY [facility]; Protocol Last Admin: 09/20/18 10:14 Dose: 100 mls/hr Insulin Aspart (Novolog Vial Sliding Scale -) 1 vial SQ ACHS [facility]; Protocol Last Admin: 09/21/18 06:37 Dose: Not Given Isosorbide Mononitrate (Imdur -) 30 mg PO DAILY [facility] Last Admin: 09/20/18 10:13 Dose: 30 mg Levothyroxine Sodium (Synthroid -) 25 mcg PO DAILY@0700 [facility] Last Admin: 09/21/18 06:36 Dose: 25 mcg Losartan Potassium (Cozaar -) 25 mg PO DAILY [facility] Last Admin: 09/20/18 10:13 Dose: 25 mg Magnesium Oxide (Mag-Ox -) 400 mg PO BID [facility] Last Admin: 09/20/18 22:32 Dose: 400 mg Metoprolol Succinate (Toprol Xl -) 75 mg PO DAILY [facility] Last Admin: 09/20/18 10:14 Dose: 75 mg Multivitamins/Minerals/Vitamin C (Tab-A-Vit -) 1 tab PO DAILY [facility] Last Admin: 09/20/18 10:14 Dose: 1 tab Pantoprazole Sodium (Protonix -) 40 mg PO DAILY [facility] Last Admin: 09/20/18 10:13 Dose: 40 mg Tamsulosin HCl (Flomax -) 0.4 mg PO DAILY@0830 [facility] Last Admin: 09/20/18 10:13 Dose: 0.4 mg - Objective Vital Signs: Vital Signs Temperature 97 F L 09/21/18 06:00 Pulse Rate 77 09/21/18 06:00 Respiratory Rate 18 09/21/18 06:00 Blood Pressure 119/71 09/21/18 06:00 O2 Sat by Pulse Oximetry (%) 94 L 09/20/18 21:00 Neck: Yes: Supple Cardiovascular: Yes: Regular Rate and Rhythm, S1, S2 Respiratory: Yes: Diminished Gastrointestinal: Yes: Normal Bowel Sounds, Soft. No: Tenderness Extremities: Yes: Amputation Edema: Yes Edema: RLE: 1+ Labs: CBC, BMP 09/21/18 05:35 09/21/18 05:35 Problem List - Problems (1) COPD exacerbation Code(s): J44.1 - CHRONIC OBSTRUCTIVE PULMONARY DISEASE W (ACUTE) EXACERBATION (2) Dyslipidemia (high LDL; low HDL) Code(s): E78.5 - HYPERLIPIDEMIA, UNSPECIFIED (3) HTN (hypertension) Code(s): I10 - ESSENTIAL (PRIMARY) HYPERTENSION Qualifiers: Hypertension type: essential hypertension Qualified Code(s): I10 - Essential (primary) hypertension (4) Mitral valve regurgitation Code(s): I34.0 - NONRHEUMATIC MITRAL (VALVE) INSUFFICIENCY Qualifiers: Cardiac valve disease etiology: nonrheumatic Qualified Code(s): I34.0 - Nonrheumatic mitral (valve) insufficiency (5) Nephrotic range proteinuria Code(s): R80.9 - PROTEINURIA, UNSPECIFIED (6) Non-insulin dependent type 2 diabetes mellitus Code(s): E11.9 - TYPE 2 DIABETES MELLITUS WITHOUT COMPLICATIONS (7) Shortness of breath Code(s): R06.02 - SHORTNESS OF BREATH (8) CKD (chronic kidney disease) Code(s): N18.9 - CHRONIC KIDNEY DISEASE, UNSPECIFIED Qualifiers: Chronic kidney disease stage: stage 3 (moderate) Qualified Code(s): N18.3 - Chronic kidney disease, stage 3 (moderate) (9) Anemia Code(s): D64.9 - ANEMIA, UNSPECIFIED Qualifiers: Anemia type: other cause Other causes of anemia: other cause, not classified Qualified Code(s): D64.89 - Other specified anemias (10) Diastolic dysfunction Code(s): I51.9 - HEART DISEASE, UNSPECIFIED (11) Hypothyroid Code(s): E03.9 - HYPOTHYROIDISM, UNSPECIFIED Qualifiers: Hypothyroidism type: unspecified Qualified Code(s): E03.9 - Hypothyroidism , unspecified Assessment/Plan 1. BRAGG due to acute exacerbation of moderate to severe COPD 2. Acute on chronic diastolic/systolic failure 3. Anemia post transfusion, ? MDS vs multiple myeloma 4. CKD with proteinuria - nephrotic and history of hyperkalemia 5. HTN 6. Type 2 DM 7. hypothyroidism 8. Hypercholesterolemia 9. Abnormal LFT from hepatic congestion 10. Pulmonary nodule and history of laryngeal cancer s/p XRT and chemotherapy 11. Left BKA PLAN: 1. Continue diuresis PO with monitor renal function and electrolytes 2. Continue bronchodilators, inhaled steroids, O2 as needed 3. Continue ASA 81 qd, Lipitor 40 qhs, Losartan 25 mg QD, Hydralazine 25 mg BID and Toprol XL 75 mg QD as tolerated 4. Monitor H/H and transfuse PRBC as needed. Further plans are to follow Aman Zavala MD
[2018-09-21] MEDS ORDERED: DEXTROSE 5%-WATER - 50 ML IVPB ONE (10:12)
[2018-09-21] MEDS ORDERED: cefTRIAXone SODIUM 1 GM VIAL ONE (10:12)
[2018-09-21] MEDS: CEFTRIAXONE 1 GM in DEXTROSE 5%-WATER - 50 ML IVPB SCH (10:13)
[2018-09-21] MEDS: GABAPENTIN 100 MG CAPSULE (FP) PO SCH ×2 (10:17→21:31)
[2018-09-21] MEDS: PANTOPRAZOLE 40 MG TABLET (FP) PO SCH (10:17)
[2018-09-21] MEDS: MAGNESIUM OXIDE 400 MG TABLET (FP) PO SCH ×2 (10:17→21:30)
[2018-09-21] MEDS: hydrALAZINE HCL 25 MG TABLET (FP) PO SCH ×2 (10:17→21:30)
[2018-09-21] MEDS: LOSARTAN POTASSIUM 25 MG TABLET PO SCH (10:17)
[2018-09-21] MEDS: CYANOCOBALAMIN 1,000 MCG TABLET (FP) PO SCH (10:17)
[2018-09-21] MEDS: MULTIVITAMINS (DAILY MVI) TABLET (FP) PO SCH (10:17)
[2018-09-21] MEDS: TAMSULOSIN HCL 0.4 MG CAP PO SCH (10:17)
[2018-09-21] MEDS: ISOSORBIDE MONONITRATE 30 MG TAB.SR.24H (FP) PO SCH (10:17)
[2018-09-21] MEDS: BUDESONIDE/FORMETEROL FUMARATE 160/4.5 mcg INHALER IH SCH ×2 (10:18→21:32)
[2018-09-21 10:20] LABS: ANISOCYTOSIS 1+; MACROCYTOSIS 1+; OVALOCYTE 1+; PLATELET ESTIMATE NORMAL
[2018-09-21] MEDS ORDERED: FUROSEMIDE 40 MG/4 ML INJECTABLE VIAL IVPUSH SCH (12:14)
--- NOTE | 2018-09-21 12:14 | PN ---
Progress Note, Physician History of Present Illness: Pt seen and examined at bedside. He complains of worsening edema and weight gain. - Current Medication List Current Medications: Active Medications Albuterol/Ipratropium (Duoneb -) 1 amp NEB RQID [facility] Last Admin: 09/21/18 11:46 Dose: 1 amp Atorvastatin Calcium (Lipitor -) 40 mg PO HS [facility] Last Admin: 09/20/18 22:32 Dose: 40 mg Budesonide/Formoterol Fumarate (Symbicort 160/4.5mcg -) 1 puff IH BID [facility] Last Admin: 09/21/18 10:18 Dose: 1 puff Cyanocobalamin (Vitamin B12 -) 1,000 mcg PO DAILY [facility] Last Admin: 09/21/18 10:17 Dose: 1,000 mcg Furosemide (Lasix Injection -) 40 mg IVPUSH BID@0600,1400 [facility] Last Admin: 09/21/18 06:36 Dose: 40 mg Gabapentin (Neurontin -) 100 mg PO BID [facility] Last Admin: 09/21/18 10:17 Dose: 100 mg Heparin Sodium (Porcine) (Heparin -) 5,000 unit SQ TID [facility] Last Admin: 09/21/18 06:36 Dose: 5,000 unit Hydralazine HCl (Apresoline -) 25 mg PO BID [facility] Last Admin: 09/21/18 10:17 Dose: 25 mg Ceftriaxone Sodium 1 gm/ (Dextrose) 50 mls @ 100 mls/hr IVPB DAILY [facility]; Protocol Last Admin: 09/21/18 10:13 Dose: 100 mls/hr Insulin Aspart (Novolog Vial Sliding Scale -) 1 vial SQ ACHS [facility]; Protocol Last Admin: 09/21/18 11:36 Dose: 4 units Isosorbide Mononitrate (Imdur -) 30 mg PO DAILY [facility] Last Admin: 09/21/18 10:17 Dose: 30 mg Levothyroxine Sodium (Synthroid -) 25 mcg PO DAILY@0700 [facility] Last Admin: 09/21/18 06:36 Dose: 25 mcg Losartan Potassium (Cozaar -) 25 mg PO DAILY [facility] Last Admin: 09/21/18 10:17 Dose: 25 mg Magnesium Oxide (Mag-Ox -) 400 mg PO BID [facility] Last Admin: 09/21/18 10:17 Dose: 400 mg Metoprolol Succinate (Toprol Xl -) 75 mg PO DAILY [facility] Last Admin: 09/21/18 10:17 Dose: 75 mg Multivitamins/Minerals/Vitamin C (Tab-A-Vit -) 1 tab PO DAILY [facility] Last Admin: 09/21/18 10:17 Dose: 1 tab Pantoprazole Sodium (Protonix -) 40 mg PO DAILY [facility] Last Admin: 09/21/18 10:17 Dose: 40 mg Tamsulosin HCl (Flomax -) 0.4 mg PO DAILY@0830 [facility] Last Admin: 09/21/18 10:17 Dose: 0.4 mg - Objective Vital Signs: Vital Signs Temperature 98.4 F 09/21/18 10:00 Pulse Rate 80 09/21/18 10:00 Respiratory Rate 18 09/21/18 10:00 Blood Pressure 109/65 09/21/18 10:00 O2 Sat by Pulse Oximetry (%) 94 L 09/20/18 21:00 Constitutional: Yes: Calm Eyes: Yes: Conjunctiva Clear HENT: Yes: Atraumatic Cardiovascular: Yes: S1, S2 Respiratory: Yes: On Nasal O2 Gastrointestinal: Yes: Normal Bowel Sounds, Soft Genitourinary: Yes: WNL Musculoskeletal: Yes: WNL Edema: Yes Edema: RLE: 2+ Neurological: Yes: Oriented Psychiatric: Yes: Oriented Labs: CBC, BMP 09/21/18 05:35 09/21/18 05:35 INR, PTT INR 1.16 (0.83-1.09) H 09/14/18 05:30 Problem List - Problems (1) COPD exacerbation Code(s): J44.1 - CHRONIC OBSTRUCTIVE PULMONARY DISEASE W (ACUTE) EXACERBATION (2) Heart failure Code(s): I50.9 - HEART FAILURE, UNSPECIFIED Qualifiers: Qualified Code(s): I50.43 - Acute on chronic combined systolic (congestive) and diastolic (congestive) heart failure (3) Nephrotic range proteinuria Code(s): R80.9 - PROTEINURIA, UNSPECIFIED (4) CKD (chronic kidney disease) Code(s): N18.9 - CHRONIC KIDNEY DISEASE, UNSPECIFIED Qualifiers: Qualified Code(s): N18.3 - Chronic kidney disease, stage 3 (moderate) Assessment/Plan Current Medications Generic Name Dose Route Start Last Admin Trade Name Freq PRN Reason Stop Dose Admin Albuterol/Ipratropium 1 amp 09/18/18 16:00 01/02/19 11:46 Duoneb - NEB 1 amp RQID [facility] Administration Atorvastatin Calcium 40 mg 09/16/18 22:00 09/20/18 22:32 Lipitor - PO 40 mg HS [facility] Administration Budesonide/Formoterol Fumarate 1 puff 09/16/18 22:00 09/21/18 10:18 Symbicort 160/4.5mcg - IH 1 puff BID [facility] Administration Cyanocobalamin 1,000 mcg 09/17/18 10:00 09/21/18 10:17 Vitamin B12 - PO 1,000 mcg DAILY [facility] Administration Furosemide 40 mg 09/20/18 06:00 09/21/18 06:36 Lasix Injection - IVPUSH 40 mg BID@0600,1400 [facility] Administration Gabapentin 100 mg 09/17/18 22:00 09/21/18 10:17 Neurontin - PO 100 mg BID [facility] Administration Heparin Sodium (Porcine) 5,000 unit 09/19/18 22:00 09/21/18 06:36 Heparin - SQ 5,000 unit TID [facility] Administration Hydralazine HCl 25 mg 09/16/18 22:00 09/21/18 10:17 Apresoline - PO 25 mg BID [facility] Administration Ceftriaxone Sodium 1 gm/ 50 mls @ 100 mls/hr 09/20/18 10:00 09/21/18 10:13 Dextrose IVPB 100 mls/hr DAILY [facility] Administration Protocol Insulin Aspart 1 vial 09/16/18 16:30 09/21/18 11:36 Novolog Vial Sliding Scale - SQ 4 units ACHS [facility] Administration Protocol Isosorbide Mononitrate 30 mg 09/17/18 10:00 09/21/18 10:17 Imdur - PO 30 mg DAILY [facility] Administration Levothyroxine Sodium 25 mcg 09/17/18 07:00 09/21/18 06:36 Synthroid - PO 25 mcg DAILY@0700 [facility] Administration Losartan Potassium 25 mg 09/17/18 10:00 09/21/18 10:17 Cozaar - PO 25 mg DAILY [facility] Administration Magnesium Oxide 400 mg 09/17/18 22:00 09/21/18 10:17 Mag-Ox - PO 400 mg BID [facility] Administration Metoprolol Succinate 75 mg 09/17/18 17:15 09/21/18 10:17 Toprol Xl - PO 75 mg DAILY [facility] Administration Multivitamins/Minerals/Vitamin C 1 tab 09/17/18 10:00 09/21/18 10:17 Tab-A-Vit - PO 1 tab DAILY [facility] Administration Pantoprazole Sodium 40 mg 09/17/18 10:00 09/21/18 10:17 Protonix - PO 40 mg DAILY [facility] Administration Tamsulosin HCl 0.4 mg 09/17/18 08:30 09/21/18 10:17 Flomax - PO 0.4 mg DAILY@0830 [facility] Administration Impression 1. CKD 2. anemia 3. history of hyperkalemia 4. HTN 5. DM 6. hypothyroidism 7. HLD 8. copd 9. proteinuria - nephrotic 10. active smoker 11. fluid overload Plan - increase lasix to 60 mg bid - will give a dose of metolazone again today - monitor renal function - again refusing biopsy - hematology eval for worsening anemia - monitor potassium - low potassium diet - will follow Dr Haley
--- NOTE | 2018-09-21 13:05 | PN ---
Progress Note, Physician History of Present Illness: says he is breathing better being transfused still with cough but minimal sputum production - Current Medication List Current Medications: Active Medications Albuterol/Ipratropium (Duoneb -) 1 amp NEB RQID [facility] Last Admin: 09/21/18 11:46 Dose: 1 amp Atorvastatin Calcium (Lipitor -) 40 mg PO HS [facility] Last Admin: 09/20/18 22:32 Dose: 40 mg Budesonide/Formoterol Fumarate (Symbicort 160/4.5mcg -) 1 puff IH BID [facility] Last Admin: 09/21/18 10:18 Dose: 1 puff Cyanocobalamin (Vitamin B12 -) 1,000 mcg PO DAILY [facility] Last Admin: 09/21/18 10:17 Dose: 1,000 mcg Furosemide (Lasix Injection -) 60 mg IVPUSH BID@0600,1400 [facility] Gabapentin (Neurontin -) 100 mg PO BID [facility] Last Admin: 09/21/18 10:17 Dose: 100 mg Heparin Sodium (Porcine) (Heparin -) 5,000 unit SQ TID [facility] Last Admin: 09/21/18 06:36 Dose: 5,000 unit Hydralazine HCl (Apresoline -) 25 mg PO BID [facility] Last Admin: 09/21/18 10:17 Dose: 25 mg Ceftriaxone Sodium 1 gm/ (Dextrose) 50 mls @ 100 mls/hr IVPB DAILY [facility]; Protocol Last Admin: 09/21/18 10:13 Dose: 100 mls/hr Insulin Aspart (Novolog Vial Sliding Scale -) 1 vial SQ ACHS [facility]; Protocol Last Admin: 09/21/18 11:36 Dose: 4 units Isosorbide Mononitrate (Imdur -) 30 mg PO DAILY [facility] Last Admin: 09/21/18 10:17 Dose: 30 mg Levothyroxine Sodium (Synthroid -) 25 mcg PO DAILY@0700 [facility] Last Admin: 09/21/18 06:36 Dose: 25 mcg Losartan Potassium (Cozaar -) 25 mg PO DAILY [facility] Last Admin: 09/21/18 10:17 Dose: 25 mg Magnesium Oxide (Mag-Ox -) 400 mg PO BID [facility] Last Admin: 09/21/18 10:17 Dose: 400 mg Metolazone (Zaroxolyn -) 5 mg PO ONCE ONE Stop: 09/21/18 13:31 Metoprolol Succinate (Toprol Xl -) 75 mg PO DAILY [facility] Last Admin: 09/21/18 10:17 Dose: 75 mg Multivitamins/Minerals/Vitamin C (Tab-A-Vit -) 1 tab PO DAILY [facility] Last Admin: 09/21/18 10:17 Dose: 1 tab Pantoprazole Sodium (Protonix -) 40 mg PO DAILY [facility] Last Admin: 09/21/18 10:17 Dose: 40 mg Tamsulosin HCl (Flomax -) 0.4 mg PO DAILY@0830 [facility] Last Admin: 09/21/18 10:17 Dose: 0.4 mg - Objective Vital Signs: Vital Signs Temperature 98.4 F 09/21/18 10:00 Pulse Rate 80 09/21/18 10:00 Respiratory Rate 18 09/21/18 10:00 Blood Pressure 109/65 09/21/18 10:00 O2 Sat by Pulse Oximetry (%) 98 09/21/18 09:00 Constitutional: Yes: No Distress, Calm Cardiovascular: Yes: Regular Rate and Rhythm Respiratory: Yes: Regular, Poor Air Entry Gastrointestinal: Yes: Normal Bowel Sounds, Soft Musculoskeletal: Yes: WNL Extremities: Yes: Other Neurological: Yes: Alert, Oriented Psychiatric: Yes: Alert, Oriented Labs: CBC, BMP 09/21/18 05:35 09/21/18 05:35 INR, PTT INR 1.16 (0.83-1.09) H 09/14/18 05:30 Assessment/Plan Problem List - Problems (1) Nephrotic range proteinuria Code(s): R80.9 - PROTEINURIA, UNSPECIFIED (2) Heart failure Code(s): I50.9 - HEART FAILURE, UNSPECIFIED Qualifiers: Heart failure type: combined systolic and diastolic Heart failure chronicity: acute on chronic Qualified Code(s): I50.43 - Acute on chronic combined systolic (congestive) and diastolic (congestive) heart failure (3) CKD (chronic kidney disease) Code(s): N18.9 - CHRONIC KIDNEY DISEASE, UNSPECIFIED Qualifiers: Chronic kidney disease stage: stage 3 (moderate) Qualified Code(s): N18.3 - Chronic kidney disease, stage 3 (moderate) (4) Cardiomyopathy as manifestation of underlying disease Code(s): I43 - CARDIOMYOPATHY IN DISEASES CLASSIFIED ELSEWHERE (5) Hypothyroid Code(s): E03.9 - HYPOTHYROIDISM, UNSPECIFIED Qualifiers: Hypothyroidism type: unspecified Qualified Code(s): E03.9 - Hypothyroidism , unspecified 6 pnaumonia patients sputum positive plan sputum cx noted will change to oral abx transfuse as needed rest as per the team
[2018-09-21] MEDS ORDERED: METOLAZONE 5 MG TABLET PO ONE (13:30)
--- NOTE | 2018-09-21 14:24 | PN ---
Progress Note, Physician History of Present Illness: pulmonary alert,sitting up in bed feeling better,less dyspneic - Current Medication List Current Medications: Active Medications Albuterol/Ipratropium (Duoneb -) 1 amp NEB RQID [facility] Last Admin: 09/21/18 11:46 Dose: 1 amp Amoxicillin/Clavulanate Potassium (Augmentin - 500mg Tablet) 1 tab PO BID@0800, 1730 [facility] Atorvastatin Calcium (Lipitor -) 40 mg PO HS [facility] Last Admin: 09/20/18 22:32 Dose: 40 mg Budesonide/Formoterol Fumarate (Symbicort 160/4.5mcg -) 1 puff IH BID [facility] Last Admin: 09/21/18 10:18 Dose: 1 puff Cyanocobalamin (Vitamin B12 -) 1,000 mcg PO DAILY [facility] Last Admin: 09/21/18 10:17 Dose: 1,000 mcg Furosemide (Lasix Injection -) 60 mg IVPUSH BID@0600,1400 [facility] Gabapentin (Neurontin -) 100 mg PO BID [facility] Last Admin: 09/21/18 10:17 Dose: 100 mg Heparin Sodium (Porcine) (Heparin -) 5,000 unit SQ TID [facility] Last Admin: 09/21/18 14:00 Dose: 5,000 unit Hydralazine HCl (Apresoline -) 25 mg PO BID [facility] Last Admin: 09/21/18 10:17 Dose: 25 mg Insulin Aspart (Novolog Vial Sliding Scale -) 1 vial SQ ACHS [facility]; Protocol Last Admin: 09/21/18 11:36 Dose: 4 units Isosorbide Mononitrate (Imdur -) 30 mg PO DAILY [facility] Last Admin: 09/21/18 10:17 Dose: 30 mg Levothyroxine Sodium (Synthroid -) 25 mcg PO DAILY@0700 [facility] Last Admin: 09/21/18 06:36 Dose: 25 mcg Losartan Potassium (Cozaar -) 25 mg PO DAILY [facility] Last Admin: 09/21/18 10:17 Dose: 25 mg Magnesium Oxide (Mag-Ox -) 400 mg PO BID [facility] Last Admin: 09/21/18 10:17 Dose: 400 mg Metoprolol Succinate (Toprol Xl -) 75 mg PO DAILY [facility] Last Admin: 09/21/18 10:17 Dose: 75 mg Multivitamins/Minerals/Vitamin C (Tab-A-Vit -) 1 tab PO DAILY [facility] Last Admin: 09/21/18 10:17 Dose: 1 tab Pantoprazole Sodium (Protonix -) 40 mg PO DAILY [facility] Last Admin: 09/21/18 10:17 Dose: 40 mg Tamsulosin HCl (Flomax -) 0.4 mg PO DAILY@0830 [facility] Last Admin: 09/21/18 10:17 Dose: 0.4 mg - Objective Vital Signs: Vital Signs Temperature 98.4 F 09/21/18 10:00 Pulse Rate 80 09/21/18 10:00 Respiratory Rate 18 09/21/18 10:00 Blood Pressure 109/65 09/21/18 10:00 O2 Sat by Pulse Oximetry (%) 98 09/21/18 09:00 Constitutional: Yes: Well Nourished, Calm Eyes: Yes: WNL HENT: Yes: WNL Neck: Yes: WNL Cardiovascular: Yes: Regular Rate and Rhythm, S1, S2 Respiratory: Yes: Rales (bibsilar rales) Gastrointestinal: Yes: Normal Bowel Sounds, Soft Extremities: Yes: WNL Edema: Yes Labs: CBC, BMP 09/21/18 05:35 09/21/18 05:35 INR, PTT INR 1.16 (0.83-1.09) H 09/14/18 05:30 Assessment/Plan AE mod-severe copd improving active smoker Acute on chronic diastolic/systolic failure Anemia CKD with proteinuria - nephrotic and h/o hyperkalemia HTN Type 2 DM hypothyroidism HLD high transaminases from hepatic congestion?- improving 9 mm RUL pulm nodule, 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 BKA Macrocytic anemia ?mds O2 as ordered(patient has home o2 but uses it sparingly duo neb ics/laba diuretics no need for systemic steroids at this time smoking cessation encourage use of [address] SANCHEZ Problem List - Problems (1) BPH (benign prostatic hyperplasia) Code(s): N40.0 - BENIGN PROSTATIC HYPERPLASIA WITHOUT LOWER URINRY TRACT SYMP (2) COPD exacerbation Code(s): J44.1 - CHRONIC OBSTRUCTIVE PULMONARY DISEASE W (ACUTE) EXACERBATION (3) Dyslipidemia (high LDL; low HDL) Code(s): E78.5 - HYPERLIPIDEMIA, UNSPECIFIED (4) HTN (hypertension) Code(s): I10 - ESSENTIAL (PRIMARY) HYPERTENSION (5) Heart failure Code(s): I50.9 - HEART FAILURE, UNSPECIFIED Qualifiers: Heart failure type: combined systolic and diastolic Heart failure chronicity: acute on chronic Qualified Code(s): I50.43 - Acute on chronic combined systolic (congestive) and diastolic (congestive) heart failure (6) Nephrotic range proteinuria Code(s): R80.9 - PROTEINURIA, UNSPECIFIED (7) Non-insulin dependent type 2 diabetes mellitus Code(s): E11.9 - TYPE 2 DIABETES MELLITUS WITHOUT COMPLICATIONS (8) Shortness of breath Code(s): R06.02 - SHORTNESS OF BREATH (9) CKD (chronic kidney disease) Code(s): N18.9 - CHRONIC KIDNEY DISEASE, UNSPECIFIED Qualifiers: Chronic kidney disease stage: stage 3 (moderate) Qualified Code(s): N18.3 - Chronic kidney disease, stage 3 (moderate) (10) Anemia Code(s): D64.9 - ANEMIA, UNSPECIFIED Qualifiers: Anemia type: other cause Other causes of anemia: other cause, not classified Qualified Code(s): D64.89 - Other specified anemias (11) Cardiomyopathy as manifestation of underlying disease Code(s): I43 - CARDIOMYOPATHY IN DISEASES CLASSIFIED ELSEWHERE (12) Diastolic dysfunction Code(s): I51.9 - HEART DISEASE, UNSPECIFIED
--- NOTE | 2018-09-21 14:42 | PN ---
Progress Note, Physician Chief Complaint: No new events Not in distress History of Present Illness: Patient was seen and examined. Awake and alert. Chart was reviewed Denies chest pain. Intermittent SOB and cough - Current Medication List Current Medications: Active Medications Albuterol/Ipratropium (Duoneb -) 1 amp NEB RQID [facility] Last Admin: 09/21/18 11:46 Dose: 1 amp Amoxicillin/Clavulanate Potassium (Augmentin - 500mg Tablet) 1 tab PO BID@0800, 1730 [facility] Atorvastatin Calcium (Lipitor -) 40 mg PO HS [facility] Last Admin: 09/20/18 22:32 Dose: 40 mg Budesonide/Formoterol Fumarate (Symbicort 160/4.5mcg -) 1 puff IH BID [facility] Last Admin: 09/21/18 10:18 Dose: 1 puff Cyanocobalamin (Vitamin B12 -) 1,000 mcg PO DAILY [facility] Last Admin: 09/21/18 10:17 Dose: 1,000 mcg Furosemide (Lasix Injection -) 60 mg IVPUSH BID@0600,1400 [facility] Last Admin: 09/21/18 14:36 Dose: 60 mg Gabapentin (Neurontin -) 100 mg PO BID [facility] Last Admin: 09/21/18 10:17 Dose: 100 mg Heparin Sodium (Porcine) (Heparin -) 5,000 unit SQ TID [facility] Last Admin: 09/21/18 14:00 Dose: 5,000 unit Hydralazine HCl (Apresoline -) 25 mg PO BID [facility] Last Admin: 09/21/18 10:17 Dose: 25 mg Insulin Aspart (Novolog Vial Sliding Scale -) 1 vial SQ ACHS [facility]; Protocol Last Admin: 09/21/18 11:36 Dose: 4 units Isosorbide Mononitrate (Imdur -) 30 mg PO DAILY [facility] Last Admin: 09/21/18 10:17 Dose: 30 mg Levothyroxine Sodium (Synthroid -) 25 mcg PO DAILY@0700 [facility] Last Admin: 09/21/18 06:36 Dose: 25 mcg Losartan Potassium (Cozaar -) 25 mg PO DAILY [facility] Last Admin: 09/21/18 10:17 Dose: 25 mg Magnesium Oxide (Mag-Ox -) 400 mg PO BID [facility] Last Admin: 09/21/18 10:17 Dose: 400 mg Metoprolol Succinate (Toprol Xl -) 75 mg PO DAILY [facility] Last Admin: 09/21/18 10:17 Dose: 75 mg Multivitamins/Minerals/Vitamin C (Tab-A-Vit -) 1 tab PO DAILY [facility] Last Admin: 09/21/18 10:17 Dose: 1 tab Pantoprazole Sodium (Protonix -) 40 mg PO DAILY [facility] Last Admin: 09/21/18 10:17 Dose: 40 mg Tamsulosin HCl (Flomax -) 0.4 mg PO DAILY@0830 [facility] Last Admin: 09/21/18 10:17 Dose: 0.4 mg - Objective Vital Signs: Vital Signs Temperature 98.1 F 09/21/18 14:33 Pulse Rate 80 09/21/18 14:33 Respiratory Rate 22 H 09/21/18 14:33 Blood Pressure 124/75 09/21/18 14:33 O2 Sat by Pulse Oximetry (%) 98 09/21/18 09:00 Neck: Yes: Supple Cardiovascular: Yes: Regular Rate and Rhythm, S1, S2 Respiratory: Yes: CTA Bilaterally Gastrointestinal: Yes: Normal Bowel Sounds, Soft Extremities: Yes: Amputation Edema: Yes Edema: RLE: 1+ Labs: CBC, BMP 09/21/18 05:35 09/21/18 05:35 Problem List - Problems (1) COPD exacerbation Code(s): J44.1 - CHRONIC OBSTRUCTIVE PULMONARY DISEASE W (ACUTE) EXACERBATION (2) Dyslipidemia (high LDL; low HDL) Code(s): E78.5 - HYPERLIPIDEMIA, UNSPECIFIED (3) HTN (hypertension) Code(s): I10 - ESSENTIAL (PRIMARY) HYPERTENSION Qualifiers: Hypertension type: essential hypertension Qualified Code(s): I10 - Essential (primary) hypertension (4) Mitral valve regurgitation Code(s): I34.0 - NONRHEUMATIC MITRAL (VALVE) INSUFFICIENCY Qualifiers: Cardiac valve disease etiology: nonrheumatic Qualified Code(s): I34.0 - Nonrheumatic mitral (valve) insufficiency (5) Nephrotic range proteinuria Code(s): R80.9 - PROTEINURIA, UNSPECIFIED (6) Non-insulin dependent type 2 diabetes mellitus Code(s): E11.9 - TYPE 2 DIABETES MELLITUS WITHOUT COMPLICATIONS (7) Shortness of breath Code(s): R06.02 - SHORTNESS OF BREATH (8) CKD (chronic kidney disease) Code(s): N18.9 - CHRONIC KIDNEY DISEASE, UNSPECIFIED Qualifiers: Chronic kidney disease stage: stage 3 (moderate) Qualified Code(s): N18.3 - Chronic kidney disease, stage 3 (moderate) (9) Anemia Code(s): D64.9 - ANEMIA, UNSPECIFIED Qualifiers: Anemia type: other cause Other causes of anemia: other cause, not classified Qualified Code(s): D64.89 - Other specified anemias (10) Diastolic dysfunction Code(s): I51.9 - HEART DISEASE, UNSPECIFIED (11) Hypothyroid Code(s): E03.9 - HYPOTHYROIDISM, UNSPECIFIED Qualifiers: Hypothyroidism type: unspecified Qualified Code(s): E03.9 - Hypothyroidism , unspecified Assessment/Plan 1. BRAGG due to acute exacerbation of moderate to severe COPD 2. Acute on chronic diastolic/systolic failure 3. Anemia post transfusion, ? MDS vs multiple myeloma 4. CKD with proteinuria - nephrotic and history of hyperkalemia 5. HTN 6. Type 2 DM 7. hypothyroidism 8. Hypercholesterolemia 9. Abnormal LFT from hepatic congestion 10. Pulmonary nodule and history of laryngeal cancer s/p XRT and chemotherapy 11. Left BKA PLAN: 1. Continue diuresis PO with monitor renal function and electrolytes 2. Continue bronchodilators, inhaled steroids, O2 as needed 3. Continue ASA 81 qd, Lipitor 40 qhs, Losartan 25 mg QD, Hydralazine 25 mg BID and Toprol XL 75 mg QD as tolerated 4. Monitor H/H and transfuse PRBC as needed. 5. LE Doppler did not reveal DVT Further plans are to follow Aman Zavala MD
[2018-09-21] MEDS: AMOX TR/POT CLAV 500MG/125MG TABLETS (FP) PO SCH (16:38)
[2018-09-21 17:53] LABS: BASO % 0.4 % (0-2.0); EOS % 0.5 % (0-4.5); HEMATOCRIT 24.6 % (35.4-49); HEMOGLOBIN 8.8 GM/dL (11.7-16.9); LYMPH % 12.2 % (8-40); MCH 35.5 pg (25.7-33.7); MCHC 35.7 g/dl (32.0-35.9); MEAN CELL VOLUME 99.7 fl (80-96); MEAN PLT VOLUME 10.8 fl (7.5-11.1); MONO % 30.2 % (3.8-10.2); NEUT % 56.7 % (42.8-82.8); PLATELET COUNT 212 K/MM3 (134-434); RBC 2.46 M/mm3 (4.00-5.60); RDW 21.6 % (11.9-15.9); WHITE BLOOD COUNT 6.5 K/mm3 (4.0-10.0)
[2018-09-21] MEDS: ATORVASTATIN CA 40 MG TABLET (FP) PO SCH (21:30)
[2018-09-21 21:31] LABS: ANISOCYTOSIS 2+
[2018-09-21 21:32] LABS: PLATELET ESTIMATE ADEQUATE
[2018-09-22] MEDS: LEVOTHYROXINE NA 25 MCG TABLET (FP) PO SCH (06:30)
[2018-09-22] MEDS: INSULIN SLIDING SCALE (NOVOLOG) 1 VIAL SQ SCH ×4 (06:31→21:58)
[2018-09-22] MEDS: HEPARIN NA (PORCINE) 5,000 UNITS/ML 1ML VIAL SQ SCH ×3 (06:31→21:58)
[2018-09-22] MEDS: FUROSEMIDE 40 MG/4 ML INJECTABLE VIAL IVPUSH SCH ×2 (06:31→13:39)
[2018-09-22] MEDS ORDERED: PT OWN MED DRAWER 7, Y5N ONE ×2 (07:01→09:15)
[2018-09-22] MEDS ORDERED: INSULIN (NOVOLOG) ASPART 100 UNITS/ML 10ML VIAL ONE (07:01)
[2018-09-22] MEDS: ALBUTEROL SO4 2.5/IPRATROPIUM 0.5 INH SOL 3 ML VIAL.NEB. NEB SCH ×4 (07:30→20:48)
[2018-09-22 07:44] LABS: HEMATOCRIT 24.4 % (35.4-49); MCH 33.1 pg (25.7-33.7); MCHC 32.8 g/dl (32.0-35.9); MEAN CELL VOLUME 100.8 fl (80-96); MEAN PLT VOLUME 10.3 fl (7.5-11.1); PLATELET COUNT 187 K/MM3 (134-434); RBC 2.42 M/mm3 (4.00-5.60); WHITE BLOOD COUNT 4.4 K/mm3 (4.0-10.0)
[2018-09-22] MEDS: AMOX TR/POT CLAV 500MG/125MG TABLETS (FP) PO SCH ×2 (08:24→17:28)
[2018-09-22 09:16] LABS: ALBUMIN 2.4 g/dl (3.4-5.0); ALK PHOS 82 U/L (45-117); ANION GAP 5 MMOL/L (8-16); BILIRUBIN,TOTAL 0.5 mg/dL (0.2-1); BLOOD UREA NITROGEN 69 mg/dL (7-18); CALCIUM 8.1 mg/dL (8.5-10.1); CHLORIDE 100 mmol/L (98-107); CO2 36 mmol/L (21-32); CREATININE 2.1 mg/dL (0.55-1.3); GLUCOSE,RANDOM 150 mg/dL (74-106); N-TERMINAL BNP 42146.1 pg/ml (5-125); POTASSIUM 3.9 mmol/L (3.5-5.1); SGOT/AST 17 U/L (15-37); SGPT/ALT 36 U/L (13-61); SODIUM 141 mmol/L (136-145); TOT PROT 5.6 g/dl (6.4-8.2)
[2018-09-22] MEDS: GABAPENTIN 100 MG CAPSULE (FP) PO SCH ×2 (09:24→21:57)
[2018-09-22] MEDS: MULTIVITAMINS (DAILY MVI) TABLET (FP) PO SCH (09:24)
[2018-09-22] MEDS: PANTOPRAZOLE 40 MG TABLET (FP) PO SCH (09:24)
[2018-09-22] MEDS: TAMSULOSIN HCL 0.4 MG CAP PO SCH (09:25)
[2018-09-22] MEDS: MAGNESIUM OXIDE 400 MG TABLET (FP) PO SCH ×2 (09:25→21:57)
[2018-09-22] MEDS: CYANOCOBALAMIN 1,000 MCG TABLET (FP) PO SCH (09:26)
[2018-09-22] MEDS: BUDESONIDE/FORMETEROL FUMARATE 160/4.5 mcg INHALER IH SCH ×2 (09:29→22:03)
[2018-09-22 09:59] LABS: LDH 163 U/L (87-246); MAGNESIUM 1.8 mg/dL (1.8-2.4)
--- NOTE | 2018-09-22 10:17 | PN ---
Progress Note, Physician Chief Complaint: No new events Not in distress History of Present Illness: Patient was seen and examined. Awake and alert. Chart was reviewed Denies chest pain. Feels better - Current Medication List Current Medications: Active Medications Albuterol/Ipratropium (Duoneb -) 1 amp NEB RQID [facility] Last Admin: 09/22/18 07:30 Dose: 1 amp Amoxicillin/Clavulanate Potassium (Augmentin - 500mg Tablet) 1 tab PO BID@0800, 1730 [facility] Last Admin: 09/22/18 08:24 Dose: 1 tab Atorvastatin Calcium (Lipitor -) 40 mg PO HS [facility] Last Admin: 09/21/18 21:30 Dose: 40 mg Budesonide/Formoterol Fumarate (Symbicort 160/4.5mcg -) 1 puff IH BID [facility] Last Admin: 09/22/18 09:29 Dose: 1 puff Cyanocobalamin (Vitamin B12 -) 1,000 mcg PO DAILY [facility] Last Admin: 09/22/18 09:26 Dose: 1,000 mcg Furosemide (Lasix Injection -) 60 mg IVPUSH BID@0600,1400 [facility] Last Admin: 09/22/18 06:31 Dose: 60 mg Gabapentin (Neurontin -) 100 mg PO BID [facility] Last Admin: 09/22/18 09:24 Dose: 100 mg Heparin Sodium (Porcine) (Heparin -) 5,000 unit SQ TID [facility] Last Admin: 09/22/18 06:31 Dose: 5,000 unit Hydralazine HCl (Apresoline -) 25 mg PO BID [facility] Last Admin: 09/21/18 21:30 Dose: 25 mg Insulin Aspart (Novolog Vial Sliding Scale -) 1 vial SQ ACHS [facility]; Protocol Last Admin: 09/22/18 06:31 Dose: 2 units Isosorbide Mononitrate (Imdur -) 30 mg PO DAILY [facility] Last Admin: 09/21/18 10:17 Dose: 30 mg Levothyroxine Sodium (Synthroid -) 25 mcg PO DAILY@0700 [facility] Last Admin: 09/22/18 06:30 Dose: 25 mcg Losartan Potassium (Cozaar -) 25 mg PO DAILY [facility] Last Admin: 09/21/18 10:17 Dose: 25 mg Magnesium Oxide (Mag-Ox -) 400 mg PO BID [facility] Last Admin: 09/22/18 09:25 Dose: 400 mg Metoprolol Succinate (Toprol Xl -) 75 mg PO DAILY [facility] Last Admin: 09/22/18 09:26 Dose: 75 mg Multivitamins/Minerals/Vitamin C (Tab-A-Vit -) 1 tab PO DAILY [facility] Last Admin: 09/22/18 09:24 Dose: 1 tab Pantoprazole Sodium (Protonix -) 40 mg PO DAILY [facility] Last Admin: 09/22/18 09:24 Dose: 40 mg Tamsulosin HCl (Flomax -) 0.4 mg PO DAILY@0830 [facility] Last Admin: 09/22/18 09:25 Dose: 0.4 mg - Objective Vital Signs: Vital Signs Temperature 98.6 F 09/22/18 05:40 Pulse Rate 76 09/22/18 05:40 Respiratory Rate 18 09/22/18 05:40 Blood Pressure 145/72 09/22/18 05:40 O2 Sat by Pulse Oximetry (%) 98 09/21/18 21:00 Eyes: Yes: PERRL HENT: Yes: Atraumatic Neck: Yes: Supple Cardiovascular: Yes: Regular Rate and Rhythm Respiratory: Yes: Diminished Gastrointestinal: Yes: Normal Bowel Sounds, Soft. No: Tenderness Extremities: Yes: Amputation Edema: RLE: 1+ Labs: CBC, BMP 09/22/18 07:00 09/22/18 07:00 Problem List - Problems (1) COPD exacerbation Code(s): J44.1 - CHRONIC OBSTRUCTIVE PULMONARY DISEASE W (ACUTE) EXACERBATION (2) Dyslipidemia (high LDL; low HDL) Code(s): E78.5 - HYPERLIPIDEMIA, UNSPECIFIED (3) HTN (hypertension) Code(s): I10 - ESSENTIAL (PRIMARY) HYPERTENSION Qualifiers: Hypertension type: essential hypertension Qualified Code(s): I10 - Essential (primary) hypertension (4) Mitral valve regurgitation Code(s): I34.0 - NONRHEUMATIC MITRAL (VALVE) INSUFFICIENCY Qualifiers: Cardiac valve disease etiology: nonrheumatic Qualified Code(s): I34.0 - Nonrheumatic mitral (valve) insufficiency (5) Nephrotic range proteinuria Code(s): R80.9 - PROTEINURIA, UNSPECIFIED (6) Non-insulin dependent type 2 diabetes mellitus Code(s): E11.9 - TYPE 2 DIABETES MELLITUS WITHOUT COMPLICATIONS (7) Shortness of breath Code(s): R06.02 - SHORTNESS OF BREATH (8) CKD (chronic kidney disease) Code(s): N18.9 - CHRONIC KIDNEY DISEASE, UNSPECIFIED Qualifiers: Chronic kidney disease stage: stage 3 (moderate) Qualified Code(s): N18.3 - Chronic kidney disease, stage 3 (moderate) (9) Anemia Code(s): D64.9 - ANEMIA, UNSPECIFIED Qualifiers: Anemia type: other cause Other causes of anemia: other cause, not classified Qualified Code(s): D64.89 - Other specified anemias (10) Diastolic dysfunction Code(s): I51.9 - HEART DISEASE, UNSPECIFIED (11) Hypothyroid Code(s): E03.9 - HYPOTHYROIDISM, UNSPECIFIED Qualifiers: Hypothyroidism type: unspecified Qualified Code(s): E03.9 - Hypothyroidism , unspecified Assessment/Plan 1. BRAGG due to acute exacerbation of moderate to severe COPD 2. Acute on chronic diastolic/systolic failure 3. Anemia post transfusion, ? MDS vs multiple myeloma 4. CKD with proteinuria - nephrotic and history of hyperkalemia 5. HTN 6. Type 2 DM 7. hypothyroidism 8. Hypercholesterolemia 9. Abnormal LFT from hepatic congestion 10. Pulmonary nodule and history of laryngeal cancer s/p XRT and chemotherapy 11. Left BKA PLAN: 1. Continue diuresis (currently IV Lasix) with monitor renal function and electrolytes 2. Continue bronchodilators, inhaled steroids, O2 as needed 3. Continue ASA 81 qd, Lipitor 40 qhs, Losartan 25 mg QD, Hydralazine 25 mg BID and Toprol XL 75 mg QD as tolerated 4. Monitor H/H and transfuse PRBC as needed. Further plans are to follow Aman Zavala MD
[2018-09-22] MEDS: LOSARTAN POTASSIUM 25 MG TABLET PO SCH (11:04)
[2018-09-22] MEDS: hydrALAZINE HCL 25 MG TABLET (FP) PO SCH ×2 (11:06→21:57)
[2018-09-22] MEDS: ISOSORBIDE MONONITRATE 30 MG TAB.SR.24H (FP) PO SCH (11:07)
--- NOTE | 2018-09-22 11:46 | PN ---
Progress Note (short form) - Note Progress Note: PULMONARY States breathing about the same. No chest pain. +nonproductive cough. Vital Signs Period Temp Pulse Resp BP Sys/Stoner Pulse Ox Last 24 Hr 98.1 F-98.6 F 73-80 18-22 100-145/44-75 98 Intake & Output 09/19/18 09/20/18 09/21/18 09/22/18 23:59 23:59 23:59 23:59 Intake Total 1370 60 1490 Output Total 1000 2100 Balance 370 60 -610 Weight 85.729 kg 86.682 kg A Gen: NAD at rest Heart: RRR Lung: decreased breath sounds at the bases, no wheezes Abd: soft, nontender Ext: RLE distal edema, L BKA CBC, BMP 09/22/18 07:00 09/22/18 07:00 Active Medications Albuterol/Ipratropium (Duoneb -) 1 amp NEB RQID [facility] Last Admin: 09/22/18 11:22 Dose: 1 amp Amoxicillin/Clavulanate Potassium (Augmentin - 500mg Tablet) 1 tab PO BID@0800, 1730 [facility] Last Admin: 09/22/18 08:24 Dose: 1 tab Atorvastatin Calcium (Lipitor -) 40 mg PO HS [facility] Last Admin: 09/21/18 21:30 Dose: 40 mg Budesonide/Formoterol Fumarate (Symbicort 160/4.5mcg -) 1 puff IH BID [facility] Last Admin: 09/22/18 09:29 Dose: 1 puff Cyanocobalamin (Vitamin B12 -) 1,000 mcg PO DAILY [facility] Last Admin: 09/22/18 09:26 Dose: 1,000 mcg Furosemide (Lasix Injection -) 60 mg IVPUSH BID@0600,1400 [facility] Last Admin: 09/22/18 06:31 Dose: 60 mg Gabapentin (Neurontin -) 100 mg PO BID [facility] Last Admin: 09/22/18 09:24 Dose: 100 mg Heparin Sodium (Porcine) (Heparin -) 5,000 unit SQ TID [facility] Last Admin: 09/22/18 06:31 Dose: 5,000 unit Hydralazine HCl (Apresoline -) 25 mg PO BID [facility] Insulin Aspart (Novolog Vial Sliding Scale -) 1 vial SQ ACHS [facility]; Protocol Last Admin: 09/22/18 06:31 Dose: 2 units Isosorbide Mononitrate (Imdur -) 30 mg PO DAILY [facility] Levothyroxine Sodium (Synthroid -) 25 mcg PO DAILY@0700 [facility] Last Admin: 09/22/18 06:30 Dose: 25 mcg Losartan Potassium (Cozaar -) 25 mg PO DAILY [facility] Last Admin: 09/22/18 11:04 Dose: 25 mg Magnesium Oxide (Mag-Ox -) 400 mg PO BID [facility] Last Admin: 09/22/18 09:25 Dose: 400 mg Metoprolol Succinate (Toprol Xl -) 75 mg PO DAILY [facility] Last Admin: 09/22/18 09:26 Dose: 75 mg Multivitamins/Minerals/Vitamin C (Tab-A-Vit -) 1 tab PO DAILY [facility] Last Admin: 09/22/18 09:24 Dose: 1 tab Pantoprazole Sodium (Protonix -) 40 mg PO DAILY [facility] Last Admin: 09/22/18 09:24 Dose: 40 mg Tamsulosin HCl (Flomax -) 0.4 mg PO DAILY@0830 [facility] Last Admin: 09/22/18 09:25 Dose: 0.4 mg A/P Acute COPD Exacerbation Acute on Chronic Systolic/Diastolic Heart Failure Lung Nodule CKD HTN DM Hypothyroidism - continue lasix - monitor urine output, creatinine - inhaled bronchodilators - O2 to keep SpO2 >90% - outpt f/u of lung nodule - DVT prophylaxis
--- NOTE | 2018-09-22 12:37 | PN ---
Physical Exam: SUBJECTIVE: Patient seen and examined. No new c/o. Feels improved breathing, still with edema. Says he gets weighed with prosthetic leg everyday. Thinks weight is improved from 192>>187. Net fluid -600. OBJECTIVE: Vital Signs Period Temp Pulse Resp BP Sys/Stoner Pulse Ox Last 24 Hr 98.1 F-98.6 F 73-80 18-22 100-145/44-75 98 Vital Signs Temp 98.6 F 09/22/18 05:40 Pulse 76 09/22/18 05:40 Resp 18 09/22/18 05:40 BP 145/72 09/22/18 05:40 Pulse Ox 98 09/21/18 21:00 Intake & Output 09/21/18 09/22/18 09/22/18 23:59 11:59 23:59 Intake Total 840 165 Output Total 1400 Balance -560 165 Weight 85.003 kg Intake: Oral 840 165 Output: Urine 1400 Void 1400 Other: Voiding Method Bedpan Bedpan Bowel Movement No No Weight Measurement Method Standing Scale GENERAL: The patient is awake, alert, and fully oriented, in no acute distress. ENT:moist mucous membranes. NECK: Trachea midline, full range of motion, supple. LUNGS: Fine basal crackles b/l HEART: Regular rate and rhythm, S1, S2 with systolic murmur ABDOMEN: Soft, nontender, nondistended, normoactive bowel sounds EXTREMITIES: 2+ pulses, warm, well-perfused, pedal edema 2+ RLE, and L stump. NEUROLOGICAL: Cranial nerves II through XII grossly intact. Normal speech, gait not observed. CBC, BMP 09/22/18 07:00 09/22/18 07:00 Laboratory Results - last 24 hr 09/21/18 09/21/18 09/21/18 16:00 16:39 21:29 WBC 6.5 RBC 2.46 L Hgb 8.8 L Hct 24.6 L MCV 99.7 H MCH 35.5 H MCHC 35.7 RDW 21.6 H Plt Count 212 D MPV 10.8 Absolute Neuts (auto) 3.7 Neutrophils % 56.7 Neutrophils % (Manual) 60.0 Band Neutrophils % 3.0 Lymphocytes % 12.2 Lymphocytes % (Manual) 12.0 Monocytes % 30.2 H Monocytes % (Manual) 24 H Eosinophils % 0.5 Basophils % 0.4 Nucleated RBC % 0 Hypochromia 1+ Platelet Estimate Adequate Anisocytosis 2+ Microcytosis 2+ Stomatocytes 1+ Sodium Potassium Chloride Carbon Dioxide Anion Gap BUN Creatinine Creat Clearance w eGFR POC Glucometer 151 162 Random Glucose Calcium Magnesium Total Bilirubin AST ALT Alkaline Phosphatase LD Total B-Natriuretic Peptide Total Protein Albumin 09/22/18 09/22/18 09/22/18 06:30 07:00 07:00 WBC 4.4 RBC 2.42 L Hgb 8.0 L Hct 24.4 L MCV 100.8 H MCH 33.1 MCHC 32.8 RDW 21.0 H Plt Count 187 MPV 10.3 Absolute Neuts (auto) Neutrophils % Neutrophils % (Manual) Band Neutrophils % Lymphocytes % Lymphocytes % (Manual) Monocytes % Monocytes % (Manual) Eosinophils % Basophils % Nucleated RBC % Hypochromia Platelet Estimate Anisocytosis Microcytosis Stomatocytes Sodium 141 Potassium 3.9 Chloride 100 Carbon Dioxide 36 H Anion Gap 5 L BUN 69 H Creatinine 2.1 H Creat Clearance w eGFR 31.66 POC Glucometer 175 Random Glucose 150 H Calcium 8.1 L Magnesium 1.8 Total Bilirubin 0.5 AST 17 ALT 36 Alkaline Phosphatase 82 LD Total 163 B-Natriuretic Peptide 99052.1 H Total Protein 5.6 L Albumin 2.4 L 09/22/18 11:03 WBC RBC Hgb Hct MCV MCH MCHC RDW Plt Count MPV Absolute Neuts (auto) Neutrophils % Neutrophils % (Manual) Band Neutrophils % Lymphocytes % Lymphocytes % (Manual) Monocytes % Monocytes % (Manual) Eosinophils % Basophils % Nucleated RBC % Hypochromia Platelet Estimate Anisocytosis Microcytosis Stomatocytes Sodium Potassium Chloride Carbon Dioxide Anion Gap BUN Creatinine Creat Clearance w eGFR POC Glucometer 191 Random Glucose Calcium Magnesium Total Bilirubin AST ALT Alkaline Phosphatase LD Total B-Natriuretic Peptide Total Protein Albumin Active Medications Generic Name Dose Route Start Last Admin Trade Name Freq PRN Reason Stop Dose Admin Albuterol/Ipratropium 1 amp 09/18/18 16:00 09/22/18 11:22 Duoneb - NEB 1 amp RQID [facility] Administration Amoxicillin/Clavulanate Potassium 1 tab 09/21/18 17:30 09/22/18 08:24 Augmentin - 500mg Tablet PO 1 tab BID@0800,1730 [facility] Administration Atorvastatin Calcium 40 mg 09/16/18 22:00 09/21/18 21:30 Lipitor - PO 40 mg HS [facility] Administration Budesonide/Formoterol Fumarate 1 puff 09/16/18 22:00 09/22/18 09:29 Symbicort 160/4.5mcg - IH 1 puff BID [facility] Administration Cyanocobalamin 1,000 mcg 09/17/18 10:00 09/22/18 09:26 Vitamin B12 - PO 1,000 mcg DAILY [facility] Administration Furosemide 60 mg 09/21/18 14:00 09/22/18 06:31 Lasix Injection - IVPUSH 60 mg BID@0600,1400 [facility] Administration Gabapentin 100 mg 09/17/18 22:00 09/22/18 09:24 Neurontin - PO 100 mg BID [facility] Administration Heparin Sodium (Porcine) 5,000 unit 09/19/18 22:00 09/22/18 06:31 Heparin - SQ 5,000 unit TID [facility] Administration Hydralazine HCl 25 mg 09/22/18 10:25 Apresoline - PO BID [facility] Insulin Aspart 1 vial 09/16/18 16:30 09/22/18 06:31 Novolog Vial Sliding Scale - SQ 2 units ACHS [facility] Administration Protocol Isosorbide Mononitrate 30 mg 09/22/18 10:27 Imdur - PO DAILY [facility] Levothyroxine Sodium 25 mcg 09/17/18 07:00 09/22/18 06:30 Synthroid - PO 25 mcg DAILY@0700 [facility] Administration Losartan Potassium 25 mg 09/17/18 10:00 09/22/18 11:04 Cozaar - PO 25 mg DAILY [facility] Administration Magnesium Oxide 400 mg 09/17/18 22:00 09/22/18 09:25 Mag-Ox - PO 400 mg BID [facility] Administration Metoprolol Succinate 75 mg 09/17/18 17:15 09/22/18 09:26 Toprol Xl - PO 75 mg DAILY [facility] Administration Multivitamins/Minerals/Vitamin C 1 tab 09/17/18 10:00 09/22/18 09:24 Tab-A-Vit - PO 1 tab DAILY [facility] Administration Pantoprazole Sodium 40 mg 09/17/18 10:00 09/22/18 09:24 Protonix - PO 40 mg DAILY [facility] Administration Tamsulosin HCl 0.4 mg 09/17/18 08:30 09/22/18 09:25 Flomax - PO 0.4 mg DAILY@0830 [facility] Administration Echocardiogram 05/30/2018 showed normal LV size, wall motion and systolic function. Normal RV. Borderline LA dilatation. Mild to moderate MR. No pericardial effusion. Echocardiogram 07/14/18 shows LV moderately dilated. LV systolic fx is mildly reduced. mild global hypokinesis of the LV. RV is normal in size and fx. moderate mitral regurg. mild to mod valvular aortic stenosis. Echo 09/12/2018: Dilated lv with segmental wall motion abnormality. reduced lv systolic fx. moderate to severe mitral regurg. right vent. is normal in sz and fx. mild pulmonary hypertension. ascites present. ASSESSMENT/PLAN: Patient is a 67 year old male with a PMHx of laryngeal cancer s/p RT, chronic systolic CHF, BPH, chronic respiratory failure sec to COPD/CHF on 2L O2 via NC, active smoker, CKD 3, chronic anemia, hypertension, HLD, PAD s/p LBKA and hypothyroidism, who presented with worsening SOB exertion #Acute on chronic HFrEF Iv lasix 60mg bid Received metazolone yesterday Daily weights Strict ins and outs Fluid restriction Cont toprol xl 75mg daily Cont losartan 25mg daily Cont imdur 30mg daily Appreciate Cards-recs Dr Thompson #Acute exacerbation of COPD Cont duonebs Cont symbicort Cont augmmentin Hold of systemic steroids Oxygen supplementation NC-2L to keep sats >90% Apprec Pulm recs #chronic anemia Likely in setting of -ACD, Per hemonc s/p transfusion Cont epoeitin Monitor H&H with normal transfusion treshold Pending FISH results and/or possible biopsy to R/O MDS Other w/u per hemonc #MEENAKSHI on CKD Slight improvement Pt with nephrotic range proteinuriia Apprec nephro recs-Dr Haley Cont diuresis Monitor BNP Avoid nephrotoxic drugs #DM ISS ACHS BGM ACHS Last [id number] (05/2018) #HTN Cont toprol xl 75mg daily Cont losartan 25mg daily Cont hydralazine 25 bid #HLD Cont lipitor 40mg #PAD s/p LBKA Healed stump Gabapentin #Laryngeal cancer s/p radiation/and RT Stable Cont to monitor #hypothyroidism Cont levothyroid 25mcg daily #recent lung nodule Cont to monitor #Liver cirrhosis With trace ascites Could be cardiac cirrhosis in setting of congestion Cont diuresis #FEN No iv fluids Monitor lytes as needed Sodium controlled PPx Heparin sq Protonix Dispo Cont in pt mx Visit type - Emergency Visit Emergency Visit: Yes ED Registration Date: 09/11/18 Care time: The patient presented to the Emergency Department on the above date and was hospitalized for further evaluation of their emergent condition. - New Patient This patient is new to me today: No - Critical Care Critical Care patient: No - Discharge Referral Referred to [facility] Med [facility].: No
--- NOTE | 2018-09-22 13:51 | PN ---
Progress Note, Physician History of Present Illness: patient stable no complaints post transfusion h and h stable no other issues - Current Medication List Current Medications: Active Medications Albuterol/Ipratropium (Duoneb -) 1 amp NEB RQID [facility] Last Admin: 09/22/18 11:22 Dose: 1 amp Amoxicillin/Clavulanate Potassium (Augmentin - 500mg Tablet) 1 tab PO BID@0800, 1730 [facility] Last Admin: 09/22/18 08:24 Dose: 1 tab Atorvastatin Calcium (Lipitor -) 40 mg PO HS [facility] Last Admin: 09/21/18 21:30 Dose: 40 mg Budesonide/Formoterol Fumarate (Symbicort 160/4.5mcg -) 1 puff IH BID [facility] Last Admin: 09/22/18 09:29 Dose: 1 puff Cyanocobalamin (Vitamin B12 -) 1,000 mcg PO DAILY [facility] Last Admin: 09/22/18 09:26 Dose: 1,000 mcg Furosemide (Lasix Injection -) 60 mg IVPUSH BID@0600,1400 [facility] Last Admin: 09/22/18 13:39 Dose: 60 mg Gabapentin (Neurontin -) 100 mg PO BID [facility] Last Admin: 09/22/18 09:24 Dose: 100 mg Heparin Sodium (Porcine) (Heparin -) 5,000 unit SQ TID [facility] Last Admin: 09/22/18 13:34 Dose: 5,000 unit Hydralazine HCl (Apresoline -) 25 mg PO BID [facility] Insulin Aspart (Novolog Vial Sliding Scale -) 1 vial SQ [facility]; Protocol Last Admin: 09/22/18 11:33 Dose: 2 units Isosorbide Mononitrate (Imdur -) 30 mg PO DAILY [facility] Levothyroxine Sodium (Synthroid -) 25 mcg PO DAILY@0700 [facility] Last Admin: 09/22/18 06:30 Dose: 25 mcg Losartan Potassium (Cozaar -) 25 mg PO DAILY [facility] Last Admin: 09/22/18 11:04 Dose: 25 mg Magnesium Oxide (Mag-Ox -) 400 mg PO BID [facility] Last Admin: 09/22/18 09:25 Dose: 400 mg Metoprolol Succinate (Toprol Xl -) 75 mg PO DAILY [facility] Last Admin: 09/22/18 09:26 Dose: 75 mg Multivitamins/Minerals/Vitamin C (Tab-A-Vit -) 1 tab PO DAILY [facility] Last Admin: 09/22/18 09:24 Dose: 1 tab Pantoprazole Sodium (Protonix -) 40 mg PO DAILY [facility] Last Admin: 09/22/18 09:24 Dose: 40 mg Tamsulosin HCl (Flomax -) 0.4 mg PO DAILY@0830 [facility] Last Admin: 09/22/18 09:25 Dose: 0.4 mg - Objective Vital Signs: Vital Signs Temperature 98.6 F 09/22/18 05:40 Pulse Rate 76 09/22/18 05:40 Respiratory Rate 18 09/22/18 05:40 Blood Pressure 145/72 09/22/18 05:40 O2 Sat by Pulse Oximetry (%) 98 09/21/18 21:00 Constitutional: Yes: No Distress, Calm Cardiovascular: Yes: S1, S2 Respiratory: Yes: On Nasal O2 Gastrointestinal: Yes: Normal Bowel Sounds, Soft Musculoskeletal: Yes: WNL Extremities: Yes: Other Neurological: Yes: Alert, Oriented Psychiatric: Yes: Alert Labs: CBC, BMP 09/22/18 07:00 09/22/18 07:00 INR, PTT INR 1.16 (0.83-1.09) H 09/14/18 05:30 Assessment/Plan Problem List - Problems (1) Nephrotic range proteinuria Code(s): R80.9 - PROTEINURIA, UNSPECIFIED (2) Heart failure Code(s): I50.9 - HEART FAILURE, UNSPECIFIED Qualifiers: Heart failure type: combined systolic and diastolic Heart failure chronicity: acute on chronic Qualified Code(s): I50.43 - Acute on chronic combined systolic (congestive) and diastolic (congestive) heart failure (3) CKD (chronic kidney disease) Code(s): N18.9 - CHRONIC KIDNEY DISEASE, UNSPECIFIED Qualifiers: Chronic kidney disease stage: stage 3 (moderate) Qualified Code(s): N18.3 - Chronic kidney disease, stage 3 (moderate) (4) Cardiomyopathy as manifestation of underlying disease Code(s): I43 - CARDIOMYOPATHY IN DISEASES CLASSIFIED ELSEWHERE (5) Hypothyroid Code(s): E03.9 - HYPOTHYROIDISM, UNSPECIFIED Qualifiers: Hypothyroidism type: unspecified Qualified Code(s): E03.9 - Hypothyroidism , unspecified 6 pnaumonia patients sputum positive plan continue oral abx rest as per the team incentive jerad
--- NOTE | 2018-09-22 14:40 | PN ---
Progress Note (short form) - Note Progress Note: Consult Progress note: Hematology/Oncology denies hematuria, dysuria, melena, hematochezia, bruising or bleeding, fevers, chest pain, cough Vital Signs Temperature 98.6 F 09/22/18 05:40 Pulse Rate 76 09/22/18 05:40 Respiratory Rate 18 09/22/18 05:40 Blood Pressure 145/72 09/22/18 05:40 O2 Sat by Pulse Oximetry (%) 98 09/21/18 21:00 PE: NAD with nasal cannula 4L EOMI, no oral thrush CTAB, s1, s2 rrr abd obese, soft, nontender/nondistended left BKA right lower leg with 1+ edema Laboratory Tests 05/31/18 09/01/18 09/01/18 05:30 13:52 13:52 PT with INR INR Iron 27 L TIBC 128 L Iron Saturation 21 Transferrin 132 L Ferritin 1128.9 H LD Total Albumin 09/14/18 09/22/18 05:30 07:00 PT with INR 13.70 H INR 1.16 H Iron TIBC Iron Saturation Transferrin Ferritin LD Total 163 Albumin 2.4 L 67M with 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 consulted for macrocytic anemia. Problem List: Macrocytic anemia hx of laryngeal cancer s/p chemo/RT DM COPD on home oxygen CKD stage IV CHF PAD A/P pt already on procrit, prior w/u with elevated b12, normal folate, high ferritin (1128.9), neg SPEP, peripheral flow normal, liver ultrasound consistent with cirrhosis anemia is consistent with anemia of chronic disease. Flow cytometry results noted, possibility of MDS as cause of macrocytosis, will await FISH results. pt may require bone marrow biopsy if FISH with similar results. transfuse prn to maintain h/h, LDH, haptoglobin has been ordered to r/o hemolytic anemia, LDH level normal, pending haptoglobin results.
--- NOTE | 2018-09-22 15:20 | PN ---
Progress Note, Physician History of Present Illness: Pt seen and examined at bedside. He is awake and alert. He feels that his breathing is improved. - Current Medication List Current Medications: Active Medications Albuterol/Ipratropium (Duoneb -) 1 amp NEB RQID [facility] Last Admin: 09/22/18 11:22 Dose: 1 amp Amoxicillin/Clavulanate Potassium (Augmentin - 500mg Tablet) 1 tab PO BID@0800, 1730 [facility] Last Admin: 09/22/18 08:24 Dose: 1 tab Atorvastatin Calcium (Lipitor -) 40 mg PO HS [facility] Last Admin: 09/21/18 21:30 Dose: 40 mg Budesonide/Formoterol Fumarate (Symbicort 160/4.5mcg -) 1 puff IH BID [facility] Last Admin: 09/22/18 09:29 Dose: 1 puff Cyanocobalamin (Vitamin B12 -) 1,000 mcg PO DAILY [facility] Last Admin: 09/22/18 09:26 Dose: 1,000 mcg Furosemide (Lasix Injection -) 60 mg IVPUSH BID@0600,1400 [facility] Last Admin: 09/22/18 13:39 Dose: 60 mg Gabapentin (Neurontin -) 100 mg PO BID [facility] Last Admin: 09/22/18 09:24 Dose: 100 mg Heparin Sodium (Porcine) (Heparin -) 5,000 unit SQ TID [facility] Last Admin: 09/22/18 13:34 Dose: 5,000 unit Hydralazine HCl (Apresoline -) 25 mg PO BID [facility] Insulin Aspart (Novolog Vial Sliding Scale -) 1 vial SQ ACHS [facility]; Protocol Last Admin: 09/22/18 11:33 Dose: 2 units Isosorbide Mononitrate (Imdur -) 30 mg PO DAILY [facility] Levothyroxine Sodium (Synthroid -) 25 mcg PO DAILY@0700 [facility] Last Admin: 09/22/18 06:30 Dose: 25 mcg Losartan Potassium (Cozaar -) 25 mg PO DAILY [facility] Last Admin: 09/22/18 11:04 Dose: 25 mg Magnesium Oxide (Mag-Ox -) 400 mg PO BID [facility] Last Admin: 09/22/18 09:25 Dose: 400 mg Metoprolol Succinate (Toprol Xl -) 75 mg PO DAILY [facility] Last Admin: 09/22/18 09:26 Dose: 75 mg Multivitamins/Minerals/Vitamin C (Tab-A-Vit -) 1 tab PO DAILY [facility] Last Admin: 09/22/18 09:24 Dose: 1 tab Pantoprazole Sodium (Protonix -) 40 mg PO DAILY [facility] Last Admin: 09/22/18 09:24 Dose: 40 mg Tamsulosin HCl (Flomax -) 0.4 mg PO DAILY@0830 [facility] Last Admin: 09/22/18 09:25 Dose: 0.4 mg - Objective Vital Signs: Vital Signs Temperature 98.3 F 09/22/18 14:01 Pulse Rate 72 09/22/18 14:01 Respiratory Rate 22 H 09/22/18 14:01 Blood Pressure 127/57 L 09/22/18 14:01 O2 Sat by Pulse Oximetry (%) 95 09/22/18 09:00 Constitutional: Yes: Calm Eyes: Yes: Conjunctiva Clear HENT: Yes: Atraumatic Neck: Yes: Supple Cardiovascular: Yes: S1, S2 Respiratory: Yes: On Nasal O2 Gastrointestinal: Yes: Soft Genitourinary: Yes: WNL Edema: Yes Edema: RLE: 1+ Neurological: Yes: Oriented Psychiatric: Yes: Oriented Labs: CBC, BMP 09/22/18 07:00 09/22/18 07:00 INR, PTT INR 1.16 (0.83-1.09) H 09/14/18 05:30 Problem List - Problems (1) COPD exacerbation Code(s): J44.1 - CHRONIC OBSTRUCTIVE PULMONARY DISEASE W (ACUTE) EXACERBATION (2) Heart failure Code(s): I50.9 - HEART FAILURE, UNSPECIFIED Qualifiers: Heart failure type: combined systolic and diastolic Heart failure chronicity: acute on chronic Qualified Code(s): I50.43 - Acute on chronic combined systolic (congestive) and diastolic (congestive) heart failure (3) Nephrotic range proteinuria Code(s): R80.9 - PROTEINURIA, UNSPECIFIED (4) CKD (chronic kidney disease) Code(s): N18.9 - CHRONIC KIDNEY DISEASE, UNSPECIFIED Qualifiers: Chronic kidney disease stage: stage 3 (moderate) Qualified Code(s): N18.3 - Chronic kidney disease, stage 3 (moderate) Assessment/Plan Current Medications Generic Name Dose Route Start Last Admin Trade Name Freq PRN Reason Stop Dose Admin Albuterol/Ipratropium 1 amp 09/18/18 16:00 09/22/18 11:22 Duoneb - NEB 1 amp RQID [facility] Administration Amoxicillin/Clavulanate Potassium 1 tab 09/21/18 17:30 09/22/18 08:24 Augmentin - 500mg Tablet PO 1 tab BID@0800,1730 [facility] Administration Atorvastatin Calcium 40 mg 09/16/18 22:00 09/21/18 21:30 Lipitor - PO 40 mg HS [facility] Administration Budesonide/Formoterol Fumarate 1 puff 09/16/18 22:00 09/22/18 09:29 Symbicort 160/4.5mcg - IH 1 puff BID [facility] Administration Cyanocobalamin 1,000 mcg 09/17/18 10:00 09/22/18 09:26 Vitamin B12 - PO 1,000 mcg DAILY [facility] Administration Furosemide 60 mg 09/21/18 14:00 09/22/18 13:39 Lasix Injection - IVPUSH 60 mg BID@0600,1400 [facility] Administration Gabapentin 100 mg 09/17/18 22:00 09/22/18 09:24 Neurontin - PO 100 mg BID [facility] Administration Heparin Sodium (Porcine) 5,000 unit 09/19/18 22:00 09/22/18 13:34 Heparin - SQ 5,000 unit TID [facility] Administration Hydralazine HCl 25 mg 09/22/18 10:25 Apresoline - PO BID [facility] Insulin Aspart 1 vial 09/16/18 16:30 09/22/18 11:33 Novolog Vial Sliding Scale - SQ 2 units ACHS [facility] Administration Protocol Isosorbide Mononitrate 30 mg 09/22/18 10:27 Imdur - PO DAILY [facility] Levothyroxine Sodium 25 mcg 09/17/18 07:00 09/22/18 06:30 Synthroid - PO 25 mcg DAILY@0700 [facility] Administration Losartan Potassium 25 mg 09/17/18 10:00 09/22/18 11:04 Cozaar - PO 25 mg DAILY [facility] Administration Magnesium Oxide 400 mg 09/17/18 22:00 09/22/18 09:25 Mag-Ox - PO 400 mg BID [facility] Administration Metoprolol Succinate 75 mg 09/17/18 17:15 09/22/18 09:26 Toprol Xl - PO 75 mg DAILY [facility] Administration Multivitamins/Minerals/Vitamin C 1 tab 09/17/18 10:00 09/22/18 09:24 Tab-A-Vit - PO 1 tab DAILY [facility] Administration Pantoprazole Sodium 40 mg 09/17/18 10:00 09/22/18 09:24 Protonix - PO 40 mg DAILY [facility] Administration Tamsulosin HCl 0.4 mg 09/17/18 08:30 09/22/18 09:25 Flomax - PO 0.4 mg DAILY@0830 [facility] Administration Impression 1. CKD 2. anemia 3. history of hyperkalemia 4. HTN 5. DM 6. hypothyroidism 7. HLD 8. copd 9. proteinuria - nephrotic 10. active smoker 11. fluid overload Plan - cont iv lasix - will gice metolazone - repeat labs in am - daily weights - monitor potassium - low potassium diet - will follow Dr Haley
--- NOTE | 2018-09-22 16:13 | PN ---
Teaching Attending Note Name of Resident: Jeanne Whitt ATTENDING PHYSICIAN STATEMENT I saw and evaluated the patient. I reviewed the resident's note and discussed the case with the resident. I agree with the resident's findings and plan as documented. SUBJECTIVE: Patient feels his breathing is improving. He is concerned that his legs remain swollen. OBJECTIVE: Vital Signs Period Temp Pulse Resp BP Sys/Stoner Pulse Ox Last 24 Hr 98.2 F-98.6 F 72-76 18-22 100-145/44-72 95-98 HEART: S1S2, RRR LUNGS: Bibasilar crackles ABDOMEN: Soft, non-tender, non-distended, normal BS EXTREMITIES: 1+ edema of RLE and LLE stump, s/p left BKA Laboratory Results - last 24 hr 09/19/18 09/21/18 09/21/18 10:42 16:00 16:39 WBC 6.5 RBC 2.46 L Hgb 8.8 L Hct 24.6 L MCV 99.7 H MCH 35.5 H MCHC 35.7 RDW 21.6 H Plt Count 212 D MPV 10.8 Absolute Neuts (auto) 3.7 Neutrophils % 56.7 Neutrophils % (Manual) 60.0 Band Neutrophils % 3.0 Lymphocytes % 12.2 Lymphocytes % (Manual) 12.0 Monocytes % 30.2 H Monocytes % (Manual) 24 H Eosinophils % 0.5 Basophils % 0.4 Nucleated RBC % 0 Hypochromia 1+ Platelet Estimate Adequate Anisocytosis 2+ Microcytosis 2+ Stomatocytes 1+ Fibrinogen D-Dimer Sodium Potassium Chloride Carbon Dioxide Anion Gap BUN Creatinine Creat Clearance w eGFR POC Glucometer 151 Random Glucose Calcium Magnesium Total Bilirubin AST ALT Alkaline Phosphatase LD Total B-Natriuretic Peptide Total Protein Albumin Blood Type A POSITIVE Antibody Screen Negative Crossmatch See Detail 09/21/18 09/22/18 09/22/18 21:29 06:30 07:00 WBC 4.4 RBC 2.42 L Hgb 8.0 L Hct 24.4 L MCV 100.8 H MCH 33.1 MCHC 32.8 RDW 21.0 H Plt Count 187 MPV 10.3 Absolute Neuts (auto) Neutrophils % Neutrophils % (Manual) Band Neutrophils % Lymphocytes % Lymphocytes % (Manual) Monocytes % Monocytes % (Manual) Eosinophils % Basophils % Nucleated RBC % Hypochromia Platelet Estimate Anisocytosis Microcytosis Stomatocytes Fibrinogen D-Dimer Sodium Potassium Chloride Carbon Dioxide Anion Gap BUN Creatinine Creat Clearance w eGFR POC Glucometer 162 175 Random Glucose Calcium Magnesium Total Bilirubin AST ALT Alkaline Phosphatase LD Total B-Natriuretic Peptide Total Protein Albumin Blood Type Antibody Screen Crossmatch 09/22/18 09/22/18 09/22/18 07:00 11:03 14:20 WBC RBC Hgb Hct MCV MCH MCHC RDW Plt Count MPV Absolute Neuts (auto) Neutrophils % Neutrophils % (Manual) Band Neutrophils % Lymphocytes % Lymphocytes % (Manual) Monocytes % Monocytes % (Manual) Eosinophils % Basophils % Nucleated RBC % Hypochromia Platelet Estimate Anisocytosis Microcytosis Stomatocytes Fibrinogen 443.0 D-Dimer 629 H Sodium 141 Potassium 3.9 Chloride 100 Carbon Dioxide 36 H Anion Gap 5 L BUN 69 H Creatinine 2.1 H Creat Clearance w eGFR 31.66 POC Glucometer 191 Random Glucose 150 H Calcium 8.1 L Magnesium 1.8 Total Bilirubin 0.5 AST 17 ALT 36 Alkaline Phosphatase 82 LD Total 163 B-Natriuretic Peptide 19741.1 H Total Protein 5.6 L Albumin 2.4 L Blood Type Antibody Screen Crossmatch Current Medications Generic Name Dose Route Start Last Admin Trade Name Freq PRN Reason Stop Dose Admin Albuterol/Ipratropium 1 amp 09/18/18 16:00 09/22/18 15:57 Duoneb - NEB 1 amp RQID [facility] Administration Amoxicillin/Clavulanate Potassium 1 tab 09/21/18 17:30 09/22/18 08:24 Augmentin - 500mg Tablet PO 1 tab BID@0800,1730 [facility] Administration Atorvastatin Calcium 40 mg 09/16/18 22:00 09/21/18 21:30 Lipitor - PO 40 mg HS [facility] Administration Budesonide/Formoterol Fumarate 1 puff 09/16/18 22:00 09/22/18 09:29 Symbicort 160/4.5mcg - IH 1 puff BID [facility] Administration Cyanocobalamin 1,000 mcg 09/17/18 10:00 09/22/18 09:26 Vitamin B12 - PO 1,000 mcg DAILY [facility] Administration Furosemide 60 mg 09/21/18 14:00 09/22/18 13:39 Lasix Injection - IVPUSH 60 mg BID@0600,1400 [facility] Administration Gabapentin 100 mg 09/17/18 22:00 09/22/18 09:24 Neurontin - PO 100 mg BID [facility] Administration Heparin Sodium (Porcine) 5,000 unit 09/19/18 22:00 09/22/18 13:34 Heparin - SQ 5,000 unit TID [facility] Administration Hydralazine HCl 25 mg 09/22/18 10:25 Apresoline - PO BID [facility] Insulin Aspart 1 vial 09/16/18 16:30 09/22/18 11:33 Novolog Vial Sliding Scale - SQ 2 units ACHS [facility] Administration Protocol Isosorbide Mononitrate 30 mg 09/22/18 10:27 Imdur - PO DAILY [facility] Levothyroxine Sodium 25 mcg 09/17/18 07:00 09/22/18 06:30 Synthroid - PO 25 mcg DAILY@0700 [facility] Administration Losartan Potassium 25 mg 09/17/18 10:00 09/22/18 11:04 Cozaar - PO 25 mg DAILY [facility] Administration Magnesium Oxide 400 mg 09/17/18 22:00 09/22/18 09:25 Mag-Ox - PO 400 mg BID [facility] Administration Metoprolol Succinate 75 mg 09/17/18 17:15 09/22/18 09:26 Toprol Xl - PO 75 mg DAILY [facility] Administration Multivitamins/Minerals/Vitamin C 1 tab 09/17/18 10:00 09/22/18 09:24 Tab-A-Vit - PO 1 tab DAILY [facility] Administration Pantoprazole Sodium 40 mg 09/17/18 10:00 09/22/18 09:24 Protonix - PO 40 mg DAILY [facility] Administration Tamsulosin HCl 0.4 mg 09/17/18 08:30 09/22/18 09:25 Flomax - PO 0.4 mg DAILY@0830 [facility] Administration ASSESSMENT AND PLAN: This is a 67 year old man with a history of laryngeal cancer, chronic systolic heart failure, BPH, chronic hypoxic respiratory failure, COPD, stage 3 CKD, anemia, HTN, hyperlipidemia, PAD, left BKA, hypothyroidism who presented to the ED with SOB. 1. Acute on chronic systolic heart failure - Continue Lasix IV, Cozaar, Toprol XL, Hydralazine, Imdur - Continue fluid restriction - Monitor I&O, weight 2. Acute exacerbation of COPD - Continue Symbicort, DuoNeb, Augmentin 3. Chronic hypoxic respiratory failure - Continue oxygen to maintain saturation >90% 4. Anemia secondary to chronic illness 5. Stage 3 CKD - Creatinine stable 6. Type 2 DM - Continue Novolog sliding scale 7. HTN - Continue Cozaar, Toprol XL, Hydralazine 8. Hyperlipidemia - Continue Lipitor 9. PAD, history of left BKA 10. Laryngeal cancer 11. Hypothyroidism -Continue Synthroid 12. Lung nodule - Outpatient follow up 13. BPH - Continue Flomax
[2018-09-22] MEDS: ATORVASTATIN CA 40 MG TABLET (FP) PO SCH (21:57)
[2018-09-23] MEDS: HEPARIN NA (PORCINE) 5,000 UNITS/ML 1ML VIAL SQ SCH ×3 (06:53→21:41)
[2018-09-23] MEDS: FUROSEMIDE 40 MG/4 ML INJECTABLE VIAL IVPUSH SCH ×2 (06:53→16:01)
[2018-09-23] MEDS: LEVOTHYROXINE NA 25 MCG TABLET (FP) PO SCH (06:54)
[2018-09-23] MEDS: INSULIN SLIDING SCALE (NOVOLOG) 1 VIAL SQ SCH ×4 (06:54→21:41)
[2018-09-23 07:41] LABS: HEMATOCRIT 27.6 % (35.4-49); MCH 32.8 pg (25.7-33.7); MCHC 32.6 g/dl (32.0-35.9); MEAN CELL VOLUME 100.5 fl (80-96); MEAN PLT VOLUME 9.9 fl (7.5-11.1); PLATELET COUNT 213 K/MM3 (134-434); RBC 2.74 M/mm3 (4.00-5.60); RDW 20.7 % (11.9-15.9); WHITE BLOOD COUNT 3.9 K/mm3 (4.0-10.0)
[2018-09-23 08:11] LABS: ANION GAP 7 MMOL/L (8-16); BLOOD UREA NITROGEN 67 mg/dL (7-18); CALCIUM 8.4 mg/dL (8.5-10.1); CHLORIDE 96 mmol/L (98-107); CO2 37 mmol/L (21-32); CREATININE 2.2 mg/dL (0.55-1.3); GLUCOSE,RANDOM 117 mg/dL (74-106); MAGNESIUM 1.8 mg/dL (1.8-2.4); PHOSPHOROUS 3.6 mg/dL (2.5-4.9); POTASSIUM 4.1 mmol/L (3.5-5.1); SODIUM 140 mmol/L (136-145)
[2018-09-23] MEDS: ALBUTEROL SO4 2.5/IPRATROPIUM 0.5 INH SOL 3 ML VIAL.NEB. NEB SCH ×4 (08:15→20:50)
[2018-09-23] MEDS ORDERED: PT OWN MED DRAWER 7, Y5N ONE ×2 (11:26→15:39)
[2018-09-23] MEDS: TAMSULOSIN HCL 0.4 MG CAP PO SCH (11:27)
[2018-09-23] MEDS: PANTOPRAZOLE 40 MG TABLET (FP) PO SCH (11:27)
[2018-09-23] MEDS: CYANOCOBALAMIN 1,000 MCG TABLET (FP) PO SCH (11:27)
[2018-09-23] MEDS: MULTIVITAMINS (DAILY MVI) TABLET (FP) PO SCH (11:30)
[2018-09-23] MEDS: ISOSORBIDE MONONITRATE 30 MG TAB.SR.24H (FP) PO SCH (11:30)
[2018-09-23] MEDS: LOSARTAN POTASSIUM 25 MG TABLET PO SCH (11:31)
[2018-09-23] MEDS: MAGNESIUM OXIDE 400 MG TABLET (FP) PO SCH ×2 (11:31→21:42)
[2018-09-23] MEDS: GABAPENTIN 100 MG CAPSULE (FP) PO SCH ×2 (11:31→21:42)
[2018-09-23] MEDS: hydrALAZINE HCL 25 MG TABLET (FP) PO SCH ×2 (11:32→21:42)
[2018-09-23] MEDS: AMOX TR/POT CLAV 500MG/125MG TABLETS (FP) PO SCH ×2 (11:34→17:59)
[2018-09-23] MEDS: BUDESONIDE/FORMETEROL FUMARATE 160/4.5 mcg INHALER IH SCH ×2 (11:55→21:44)
--- NOTE | 2018-09-23 14:28 | PN ---
Progress Note, Physician History of Present Illness: Pt seen and examined at bedside. He still complains of edema. 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 - Current Medication List Current Medications: Active Medications Albuterol/Ipratropium (Duoneb -) 1 amp NEB RQID [facility] Last Admin: 09/23/18 13:00 Dose: 1 amp Amoxicillin/Clavulanate Potassium (Augmentin - 500mg Tablet) 1 tab PO BID@0800, 1730 [facility] Last Admin: 09/23/18 11:34 Dose: 1 tab Atorvastatin Calcium (Lipitor -) 40 mg PO HS [facility] Last Admin: 09/22/18 21:57 Dose: 40 mg Budesonide/Formoterol Fumarate (Symbicort 160/4.5mcg -) 1 puff IH BID [facility] Last Admin: 09/23/18 11:55 Dose: 1 puff Cyanocobalamin (Vitamin B12 -) 1,000 mcg PO DAILY [facility] Last Admin: 09/23/18 11:27 Dose: 1,000 mcg Furosemide (Lasix Injection -) 60 mg IVPUSH BID@0600,1400 [facility] Last Admin: 09/23/18 06:53 Dose: 60 mg Gabapentin (Neurontin -) 100 mg PO BID [facility] Last Admin: 09/23/18 11:31 Dose: 100 mg Heparin Sodium (Porcine) (Heparin -) 5,000 unit SQ TID [facility] Last Admin: 09/23/18 06:53 Dose: 5,000 unit Hydralazine HCl (Apresoline -) 25 mg PO BID [facility] Last Admin: 09/23/18 11:32 Dose: 25 mg Insulin Aspart (Novolog Vial Sliding Scale -) 1 vial SQ [facility]; Protocol Last Admin: 09/23/18 12:25 Dose: 2 units Isosorbide Mononitrate (Imdur -) 30 mg PO DAILY [facility] Last Admin: 09/23/18 11:30 Dose: 30 mg Levothyroxine Sodium (Synthroid -) 25 mcg PO DAILY@0700 [facility] Last Admin: 09/23/18 06:54 Dose: 25 mcg Losartan Potassium (Cozaar -) 25 mg PO DAILY [facility] Last Admin: 09/23/18 11:31 Dose: 25 mg Magnesium Oxide (Mag-Ox -) 400 mg PO BID [facility] Last Admin: 09/23/18 11:31 Dose: 400 mg Metoprolol Succinate (Toprol Xl -) 75 mg PO DAILY [facility] Last Admin: 09/23/18 11:27 Dose: 75 mg Multivitamins/Minerals/Vitamin C (Tab-A-Vit -) 1 tab PO DAILY [facility] Last Admin: 09/23/18 11:30 Dose: 1 tab Pantoprazole Sodium (Protonix -) 40 mg PO DAILY [facility] Last Admin: 09/23/18 11:27 Dose: 40 mg Tamsulosin HCl (Flomax -) 0.4 mg PO DAILY@0830 [facility] Last Admin: 09/23/18 11:27 Dose: 0.4 mg - Objective Vital Signs: Vital Signs Temperature 98 F 09/23/18 10:00 Pulse Rate 77 09/23/18 10:00 Respiratory Rate 18 09/23/18 10:00 Blood Pressure 108/57 L 09/23/18 10:00 O2 Sat by Pulse Oximetry (%) 94 L 09/22/18 21:00 Constitutional: Yes: Calm Eyes: Yes: Conjunctiva Clear HENT: Yes: Atraumatic Cardiovascular: Yes: S1, S2 Respiratory: Yes: On Nasal O2, Wheezes Gastrointestinal: Yes: Soft Genitourinary: Yes: WNL Edema: Yes Edema: RLE: 1+ Neurological: Yes: Oriented Psychiatric: Yes: Oriented Labs: CBC, BMP 09/23/18 07:00 09/23/18 07:00 INR, PTT INR 1.16 (0.83-1.09) H 09/14/18 05:30 Fibrinogen 443.0 mg/dL (238-498) 09/22/18 14:20 Problem List - Problems (1) COPD exacerbation Code(s): J44.1 - CHRONIC OBSTRUCTIVE PULMONARY DISEASE W (ACUTE) EXACERBATION (2) Heart failure Code(s): I50.9 - HEART FAILURE, UNSPECIFIED Qualifiers: Qualified Code(s): I50.43 - Acute on chronic combined systolic (congestive) and diastolic (congestive) heart failure (3) Nephrotic range proteinuria Code(s): R80.9 - PROTEINURIA, UNSPECIFIED (4) CKD (chronic kidney disease) Code(s): N18.9 - CHRONIC KIDNEY DISEASE, UNSPECIFIED Qualifiers: Qualified Code(s): N18.3 - Chronic kidney disease, stage 3 (moderate) Assessment/Plan Current Medications Generic Name Dose Route Start Last Admin Trade Name Freq PRN Reason Stop Dose Admin Albuterol/Ipratropium 1 amp 09/18/18 16:00 09/23/18 13:00 Duoneb - NEB 1 amp RQID [facility] Administration Amoxicillin/Clavulanate Potassium 1 tab 09/21/18 17:30 09/23/18 11:34 Augmentin - 500mg Tablet PO 1 tab BID@0800,1730 [facility] Administration Atorvastatin Calcium 40 mg 09/16/18 22:00 09/22/18 21:57 Lipitor - PO 40 mg HS [facility] Administration Budesonide/Formoterol Fumarate 1 puff 09/16/18 22:00 09/23/18 11:55 Symbicort 160/4.5mcg - IH 1 puff BID [facility] Administration Cyanocobalamin 1,000 mcg 09/17/18 10:00 09/23/18 11:27 Vitamin B12 - PO 1,000 mcg DAILY [facility] Administration Furosemide 60 mg 09/21/18 14:00 09/23/18 06:53 Lasix Injection - IVPUSH 60 mg BID@0600,1400 [facility] Administration Gabapentin 100 mg 09/17/18 22:00 09/23/18 11:31 Neurontin - PO 100 mg BID [facility] Administration Heparin Sodium (Porcine) 5,000 unit 09/19/18 22:00 09/23/18 06:53 Heparin - SQ 5,000 unit TID [facility] Administration Hydralazine HCl 25 mg 09/22/18 10:25 09/23/18 11:32 Apresoline - PO 25 mg BID [facility] Administration Insulin Aspart 1 vial 09/16/18 16:30 09/23/18 12:25 Novolog Vial Sliding Scale - SQ 2 units ACHS [facility] Administration Protocol Isosorbide Mononitrate 30 mg 09/22/18 10:27 09/23/18 11:30 Imdur - PO 30 mg DAILY [facility] Administration Levothyroxine Sodium 25 mcg 09/17/18 07:00 09/23/18 06:54 Synthroid - PO 25 mcg DAILY@0700 [facility] Administration Losartan Potassium 25 mg 09/17/18 10:00 09/23/18 11:31 Cozaar - PO 25 mg DAILY [facility] Administration Magnesium Oxide 400 mg 09/17/18 22:00 09/23/18 11:31 Mag-Ox - PO 400 mg BID [facility] Administration Metoprolol Succinate 75 mg 09/17/18 17:15 09/23/18 11:27 Toprol Xl - PO 75 mg DAILY [facility] Administration Multivitamins/Minerals/Vitamin C 1 tab 09/17/18 10:00 09/23/18 11:30 Tab-A-Vit - PO 1 tab DAILY [facility] Administration Pantoprazole Sodium 40 mg 09/17/18 10:00 09/23/18 11:27 Protonix - PO 40 mg DAILY [facility] Administration Tamsulosin HCl 0.4 mg 09/17/18 08:30 09/23/18 11:27 Flomax - PO 0.4 mg DAILY@0830 [facility] Administration Impression 1. CKD 2. anemia 3. history of hyperkalemia 4. HTN 5. DM 6. hypothyroidism 7. HLD 8. copd 9. proteinuria - nephrotic 10. active smoker 11. fluid overload Plan - cont IV lasix - restrict fluid intake - con metolazone - monitor lytes - he is tolerating losartan - daily weights - monitor potassium - low potassium diet - will follow Dr Haley
--- NOTE | 2018-09-23 14:31 | PN ---
Physical Exam: SUBJECTIVE: Patient seen and examined OBJECTIVE: Vital Signs Period Temp Pulse Resp BP Sys/Stoner Pulse Ox Last 24 Hr 98 F-98.2 F 68-77 18-20 108-123/57-69 94 he is in no distress at this time, is on 2l nc, sitting and eating his food has 2+ pitting edema up to the knee at time.states that has has urinated more than 1l yesterday Lungs: has distant breath sounds, but moves air well and has no rales and wheezing. no use of accessory muscles. Laboratory Results - last 24 hr 09/22/18 09/22/18 09/22/18 14:20 14:20 17:27 WBC RBC Hgb Hct MCV MCH MCHC RDW Plt Count MPV ESR 86 H Fibrinogen 443.0 D-Dimer 629 H Sodium Potassium Chloride Carbon Dioxide Anion Gap BUN Creatinine Creat Clearance w eGFR POC Glucometer 112 Random Glucose Calcium Phosphorus Magnesium 09/22/18 09/23/18 09/23/18 21:36 06:52 06:55 WBC RBC Hgb Hct MCV MCH MCHC RDW Plt Count MPV ESR Fibrinogen D-Dimer Sodium Potassium Chloride Carbon Dioxide Anion Gap BUN Creatinine Creat Clearance w eGFR POC Glucometer 165 130 197 Random Glucose Calcium Phosphorus Magnesium 09/23/18 09/23/18 09/23/18 07:00 07:00 12:23 WBC 3.9 L RBC 2.74 L Hgb 9.0 L Hct 27.6 L MCV 100.5 H MCH 32.8 MCHC 32.6 RDW 20.7 H Plt Count 213 MPV 9.9 ESR Fibrinogen D-Dimer Sodium 140 Potassium 4.1 Chloride 96 L Carbon Dioxide 37 H Anion Gap 7 L BUN 67 H Creatinine 2.2 H Creat Clearance w eGFR 30.00 POC Glucometer 201 Random Glucose 117 H Calcium 8.4 L Phosphorus 3.6 Magnesium 1.8 Active Medications Generic Name Dose Route Start Last Admin Trade Name Freq PRN Reason Stop Dose Admin Albuterol/Ipratropium 1 amp 09/18/18 16:00 09/23/18 13:00 Duoneb - NEB 1 amp RQID [facility] Administration Amoxicillin/Clavulanate Potassium 1 tab 09/21/18 17:30 09/23/18 11:34 Augmentin - 500mg Tablet PO 1 tab BID@0800,1730 [facility] Administration Atorvastatin Calcium 40 mg 09/16/18 22:00 09/22/18 21:57 Lipitor - PO 40 mg HS [facility] Administration Budesonide/Formoterol Fumarate 1 puff 09/16/18 22:00 09/23/18 11:55 Symbicort 160/4.5mcg - IH 1 puff BID [facility] Administration Cyanocobalamin 1,000 mcg 09/17/18 10:00 09/23/18 11:27 Vitamin B12 - PO 1,000 mcg DAILY [facility] Administration Furosemide 60 mg 09/21/18 14:00 09/23/18 06:53 Lasix Injection - IVPUSH 60 mg BID@0600,1400 [facility] Administration Gabapentin 100 mg 09/17/18 22:00 09/23/18 11:31 Neurontin - PO 100 mg BID [facility] Administration Heparin Sodium (Porcine) 5,000 unit 09/19/18 22:00 09/23/18 06:53 Heparin - SQ 5,000 unit TID [facility] Administration Hydralazine HCl 25 mg 09/22/18 10:25 09/23/18 11:32 Apresoline - PO 25 mg BID [facility] Administration Insulin Aspart 1 vial 09/16/18 16:30 09/23/18 12:25 Novolog Vial Sliding Scale - SQ 2 units ACHS [facility] Administration Protocol Isosorbide Mononitrate 30 mg 09/22/18 10:27 09/23/18 11:30 Imdur - PO 30 mg DAILY [facility] Administration Levothyroxine Sodium 25 mcg 09/17/18 07:00 09/23/18 06:54 Synthroid - PO 25 mcg DAILY@0700 [facility] Administration Losartan Potassium 25 mg 09/17/18 10:00 09/23/18 11:31 Cozaar - PO 25 mg DAILY [facility] Administration Magnesium Oxide 400 mg 09/17/18 22:00 09/23/18 11:31 Mag-Ox - PO 400 mg BID [facility] Administration Metoprolol Succinate 75 mg 09/17/18 17:15 09/23/18 11:27 Toprol Xl - PO 75 mg DAILY [facility] Administration Multivitamins/Minerals/Vitamin C 1 tab 09/17/18 10:00 09/23/18 11:30 Tab-A-Vit - PO 1 tab DAILY [facility] Administration Pantoprazole Sodium 40 mg 09/17/18 10:00 09/23/18 11:27 Protonix - PO 40 mg DAILY [facility] Administration Tamsulosin HCl 0.4 mg 09/17/18 08:30 09/23/18 11:27 Flomax - PO 0.4 mg DAILY@0830 [facility] Administration ASSESSMENT/PLAN: 67 y/O M W laryngeal cancer, chronic systolic heart failure, BPH, chronic hypoxic respiratory failure, COPD, stage 3 CKD, anemia, HTN, hyperlipidemia, PAD , left BKA, hypothyroidism who P/W SOB. States that his breathing has improved, but has not walked around with oxygen so can not talk about the ET at this time. 1. Acute on chronic systolic heart failure still has some room to go up on the diuretics but will keep the current dose today. - Continue Lasix IV, Cozaar, Toprol XL, Hydralazine, Imdur - Continue fluid restriction - Monitor I&O, weight 2. Acute exacerbation of COPD - Continue Symbicort, DuoNeb, Augmentin 3. Chronic hypoxic respiratory failure. will ask him to walk with the oxygen to evaluate the functional status - Continue oxygen to maintain saturation >90% 4. Anemia secondary to chronic illness 5. Stage 3 CKD - Creatinine stable 6. Type 2 DM - Continue Novolog sliding scale 7. HTN - Continue Cozaar, Toprol XL, Hydralazine 8. Hyperlipidemia - Continue Lipitor 9. PAD, history of left BKA 10. Laryngeal cancer 11. Hypothyroidism -Continue Synthroid 12. Lung nodule - Outpatient follow up 13. BPH - Continue Flomax Visit type - Emergency Visit Emergency Visit: No - New Patient This patient is new to me today: Yes Date on this admission: 09/23/18 - Critical Care Critical Care patient: No - Discharge Referral Referred to [facility] No
--- NOTE | 2018-09-23 15:05 | PN ---
Progress Note, Physician History of Present Illness: patient still requiring resp support still sob but improving - Current Medication List Current Medications: Active Medications Albuterol/Ipratropium (Duoneb -) 1 amp NEB RQID [facility] Last Admin: 09/23/18 13:00 Dose: 1 amp Amoxicillin/Clavulanate Potassium (Augmentin - 500mg Tablet) 1 tab PO BID@0800, 1730 [facility] Last Admin: 09/23/18 11:34 Dose: 1 tab Atorvastatin Calcium (Lipitor -) 40 mg PO HS [facility] Last Admin: 09/22/18 21:57 Dose: 40 mg Budesonide/Formoterol Fumarate (Symbicort 160/4.5mcg -) 1 puff IH BID [facility] Last Admin: 09/23/18 11:55 Dose: 1 puff Cyanocobalamin (Vitamin B12 -) 1,000 mcg PO DAILY [facility] Last Admin: 09/23/18 11:27 Dose: 1,000 mcg Furosemide (Lasix Injection -) 60 mg IVPUSH BID@0600,1400 [facility] Last Admin: 09/23/18 06:53 Dose: 60 mg Gabapentin (Neurontin -) 100 mg PO BID [facility] Last Admin: 09/23/18 11:31 Dose: 100 mg Heparin Sodium (Porcine) (Heparin -) 5,000 unit SQ TID [facility] Last Admin: 09/23/18 06:53 Dose: 5,000 unit Hydralazine HCl (Apresoline -) 25 mg PO BID [facility] Last Admin: 09/23/18 11:32 Dose: 25 mg Insulin Aspart (Novolog Vial Sliding Scale -) 1 vial SQ ACHS [facility]; Protocol Last Admin: 09/23/18 12:25 Dose: 2 units Isosorbide Mononitrate (Imdur -) 30 mg PO DAILY [facility] Last Admin: 09/23/18 11:30 Dose: 30 mg Levothyroxine Sodium (Synthroid -) 25 mcg PO DAILY@0700 [facility] Last Admin: 09/23/18 06:54 Dose: 25 mcg Losartan Potassium (Cozaar -) 25 mg PO DAILY [facility] Last Admin: 09/23/18 11:31 Dose: 25 mg Magnesium Oxide (Mag-Ox -) 400 mg PO BID [facility] Last Admin: 09/23/18 11:31 Dose: 400 mg Metolazone (Zaroxolyn -) 5 mg PO DAILY [facility] Metoprolol Succinate (Toprol Xl -) 75 mg PO DAILY [facility] Last Admin: 09/23/18 11:27 Dose: 75 mg Multivitamins/Minerals/Vitamin C (Tab-A-Vit -) 1 tab PO DAILY [facility] Last Admin: 09/23/18 11:30 Dose: 1 tab Pantoprazole Sodium (Protonix -) 40 mg PO DAILY [facility] Last Admin: 09/23/18 11:27 Dose: 40 mg Tamsulosin HCl (Flomax -) 0.4 mg PO DAILY@0830 [facility] Last Admin: 09/23/18 11:27 Dose: 0.4 mg - Objective Vital Signs: Vital Signs Temperature 98 F 09/23/18 10:00 Pulse Rate 77 09/23/18 10:00 Respiratory Rate 18 09/23/18 10:00 Blood Pressure 108/57 L 09/23/18 10:00 O2 Sat by Pulse Oximetry (%) 94 L 09/22/18 21:00 Constitutional: Yes: No Distress, Calm Cardiovascular: Yes: S1, S2 Respiratory: Yes: Regular, On Nasal O2, Poor Air Entry Gastrointestinal: Yes: Normal Bowel Sounds Musculoskeletal: Yes: WNL Extremities: Yes: Other Neurological: Yes: Alert, Oriented Psychiatric: Yes: Alert, Oriented Labs: CBC, BMP 09/23/18 07:00 09/23/18 07:00 INR, PTT INR 1.16 (0.83-1.09) H 09/14/18 05:30 Fibrinogen 443.0 mg/dL (238-498) 09/22/18 14:20 - ....Imaging Chest X-ray: Report Reviewed, Image Reviewed Assessment/Plan Problem List - Problems (1) Nephrotic range proteinuria Code(s): R80.9 - PROTEINURIA, UNSPECIFIED (2) Heart failure Code(s): I50.9 - HEART FAILURE, UNSPECIFIED Qualifiers: Heart failure type: combined systolic and diastolic Heart failure chronicity: acute on chronic Qualified Code(s): I50.43 - Acute on chronic combined systolic (congestive) and diastolic (congestive) heart failure (3) CKD (chronic kidney disease) Code(s): N18.9 - CHRONIC KIDNEY DISEASE, UNSPECIFIED Qualifiers: Chronic kidney disease stage: stage 3 (moderate) Qualified Code(s): N18.3 - Chronic kidney disease, stage 3 (moderate) (4) Cardiomyopathy as manifestation of underlying disease Code(s): I43 - CARDIOMYOPATHY IN DISEASES CLASSIFIED ELSEWHERE (5) Hypothyroid Code(s): E03.9 - HYPOTHYROIDISM, UNSPECIFIED Qualifiers: Hypothyroidism type: unspecified Qualified Code(s): E03.9 - Hypothyroidism , unspecified 6 pneumonia patients sputum positive plan continue abx incentive jerad watch on h and h rest as per the team
--- NOTE | 2018-09-23 15:32 | PN ---
Progress Note, Physician History of Present Illness: pulmonary alert,feeling better,less dyspneic - Current Medication List Current Medications: Active Medications Albuterol/Ipratropium (Duoneb -) 1 amp NEB RQID [facility] Last Admin: 09/23/18 13:00 Dose: 1 amp Amoxicillin/Clavulanate Potassium (Augmentin - 500mg Tablet) 1 tab PO BID@0800, 1730 [facility] Last Admin: 09/23/18 11:34 Dose: 1 tab Atorvastatin Calcium (Lipitor -) 40 mg PO HS [facility] Last Admin: 09/22/18 21:57 Dose: 40 mg Budesonide/Formoterol Fumarate (Symbicort 160/4.5mcg -) 1 puff IH BID [facility] Last Admin: 09/23/18 11:55 Dose: 1 puff Cyanocobalamin (Vitamin B12 -) 1,000 mcg PO DAILY [facility] Last Admin: 09/23/18 11:27 Dose: 1,000 mcg Furosemide (Lasix Injection -) 60 mg IVPUSH BID@0600,1400 [facility] Last Admin: 09/23/18 06:53 Dose: 60 mg Gabapentin (Neurontin -) 100 mg PO BID [facility] Last Admin: 09/23/18 11:31 Dose: 100 mg Heparin Sodium (Porcine) (Heparin -) 5,000 unit SQ TID [facility] Last Admin: 09/23/18 06:53 Dose: 5,000 unit Hydralazine HCl (Apresoline -) 25 mg PO BID [facility] Last Admin: 09/23/18 11:32 Dose: 25 mg Insulin Aspart (Novolog Vial Sliding Scale -) 1 vial SQ [facility]; Protocol Last Admin: 09/23/18 12:25 Dose: 2 units Isosorbide Mononitrate (Imdur -) 30 mg PO DAILY [facility] Last Admin: 09/23/18 11:30 Dose: 30 mg Levothyroxine Sodium (Synthroid -) 25 mcg PO DAILY@0700 [facility] Last Admin: 09/23/18 06:54 Dose: 25 mcg Losartan Potassium (Cozaar -) 25 mg PO DAILY [facility] Last Admin: 09/23/18 11:31 Dose: 25 mg Magnesium Oxide (Mag-Ox -) 400 mg PO BID [facility] Last Admin: 09/23/18 11:31 Dose: 400 mg Metolazone (Zaroxolyn -) 5 mg PO DAILY [facility] Metoprolol Succinate (Toprol Xl -) 75 mg PO DAILY [facility] Last Admin: 09/23/18 11:27 Dose: 75 mg Multivitamins/Minerals/Vitamin C (Tab-A-Vit -) 1 tab PO DAILY [facility] Last Admin: 09/23/18 11:30 Dose: 1 tab Pantoprazole Sodium (Protonix -) 40 mg PO DAILY [facility] Last Admin: 09/23/18 11:27 Dose: 40 mg Tamsulosin HCl (Flomax -) 0.4 mg PO DAILY@0830 [facility] Last Admin: 09/23/18 11:27 Dose: 0.4 mg - Objective Vital Signs: Vital Signs Temperature 98.2 F 09/23/18 15:24 Pulse Rate 82 09/23/18 15:24 Respiratory Rate 18 09/23/18 15:24 Blood Pressure 110/65 09/23/18 15:24 O2 Sat by Pulse Oximetry (%) 94 L 09/22/18 21:00 Constitutional: Yes: Well Nourished, Calm Eyes: Yes: WNL HENT: Yes: WNL Neck: Yes: WNL Cardiovascular: Yes: Regular Rate and Rhythm, S1, S2 Respiratory: Yes: Rhonchi (few scattered sharita rhonchi) Gastrointestinal: Yes: Normal Bowel Sounds, Soft Extremities: Yes: Amputation (left bka) Edema: Yes Labs: CBC, BMP 09/23/18 07:00 09/23/18 07:00 INR, PTT INR 1.16 (0.83-1.09) H 09/14/18 05:30 Fibrinogen 443.0 mg/dL (238-498) 09/22/18 14:20 Assessment/Plan AE mod-severe copd improving active smoker Acute on chronic diastolic/systolic failure Anemia CKD with proteinuria - nephrotic and h/o hyperkalemia HTN Type 2 DM hypothyroidism HLD 9 mm RUL pulm nodule, 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 BKA Macrocytic anemia ?mds O2 as ordered(patient has home o2 but uses it sparingly duo neb ics/laba iv lasix no need for systemic steroids at this time smoking cessation encourage use of [address] SANCHEZ Problem List - Problems (1) BPH (benign prostatic hyperplasia) Code(s): N40.0 - BENIGN PROSTATIC HYPERPLASIA WITHOUT LOWER URINRY TRACT SYMP (2) COPD exacerbation Code(s): J44.1 - CHRONIC OBSTRUCTIVE PULMONARY DISEASE W (ACUTE) EXACERBATION (3) Dyslipidemia (high LDL; low HDL) Code(s): E78.5 - HYPERLIPIDEMIA, UNSPECIFIED (4) HTN (hypertension) Code(s): I10 - ESSENTIAL (PRIMARY) HYPERTENSION (5) Heart failure Code(s): I50.9 - HEART FAILURE, UNSPECIFIED Qualifiers: Heart failure type: combined systolic and diastolic Heart failure chronicity: acute on chronic Qualified Code(s): I50.43 - Acute on chronic combined systolic (congestive) and diastolic (congestive) heart failure (6) Nephrotic range proteinuria Code(s): R80.9 - PROTEINURIA, UNSPECIFIED (7) Non-insulin dependent type 2 diabetes mellitus Code(s): E11.9 - TYPE 2 DIABETES MELLITUS WITHOUT COMPLICATIONS (8) Shortness of breath Code(s): R06.02 - SHORTNESS OF BREATH (9) CKD (chronic kidney disease) Code(s): N18.9 - CHRONIC KIDNEY DISEASE, UNSPECIFIED Qualifiers: Chronic kidney disease stage: stage 3 (moderate) Qualified Code(s): N18.3 - Chronic kidney disease, stage 3 (moderate) (10) Anemia Code(s): D64.9 - ANEMIA, UNSPECIFIED Qualifiers: Anemia type: other cause Other causes of anemia: other cause, not classified Qualified Code(s): D64.89 - Other specified anemias (11) Cardiomyopathy as manifestation of underlying disease Code(s): I43 - CARDIOMYOPATHY IN DISEASES CLASSIFIED ELSEWHERE (12) Diastolic dysfunction Code(s): I51.9 - HEART DISEASE, UNSPECIFIED
--- NOTE | 2018-09-23 17:51 | PN ---
Progress Note, Physician History of Present Illness: SOB and RLE swelling improved. He sees Tello Manzano MD for cardiology [phone] - Current Medication List Current Medications: Active Medications Albuterol/Ipratropium (Duoneb -) 1 amp NEB RQID [facility] Last Admin: 09/23/18 16:13 Dose: 1 amp Amoxicillin/Clavulanate Potassium (Augmentin - 500mg Tablet) 1 tab PO BID@0800, 1730 [facility] Last Admin: 09/23/18 11:34 Dose: 1 tab Atorvastatin Calcium (Lipitor -) 40 mg PO HS [facility] Last Admin: 09/22/18 21:57 Dose: 40 mg Budesonide/Formoterol Fumarate (Symbicort 160/4.5mcg -) 1 puff IH BID [facility] Last Admin: 09/23/18 11:55 Dose: 1 puff Cyanocobalamin (Vitamin B12 -) 1,000 mcg PO DAILY [facility] Last Admin: 09/23/18 11:27 Dose: 1,000 mcg Furosemide (Lasix Injection -) 60 mg IVPUSH BID@0600,1400 [facility] Last Admin: 09/23/18 16:01 Dose: 60 mg Gabapentin (Neurontin -) 100 mg PO BID [facility] Last Admin: 09/23/18 11:31 Dose: 100 mg Heparin Sodium (Porcine) (Heparin -) 5,000 unit SQ TID [facility] Last Admin: 09/23/18 16:01 Dose: 5,000 unit Hydralazine HCl (Apresoline -) 25 mg PO BID [facility] Last Admin: 09/23/18 11:32 Dose: 25 mg Insulin Aspart (Novolog Vial Sliding Scale -) 1 vial SQ [facility]; Protocol Last Admin: 09/23/18 17:09 Dose: Not Given Isosorbide Mononitrate (Imdur -) 30 mg PO DAILY [facility] Last Admin: 09/23/18 11:30 Dose: 30 mg Levothyroxine Sodium (Synthroid -) 25 mcg PO DAILY@0700 [facility] Last Admin: 09/23/18 06:54 Dose: 25 mcg Losartan Potassium (Cozaar -) 25 mg PO DAILY [facility] Last Admin: 09/23/18 11:31 Dose: 25 mg Magnesium Oxide (Mag-Ox -) 400 mg PO BID [facility] Last Admin: 09/23/18 11:31 Dose: 400 mg Metolazone (Zaroxolyn -) 5 mg PO DAILY [facility] Metoprolol Succinate (Toprol Xl -) 75 mg PO DAILY [facility] Last Admin: 09/23/18 11:27 Dose: 75 mg Multivitamins/Minerals/Vitamin C (Tab-A-Vit -) 1 tab PO DAILY [facility] Last Admin: 09/23/18 11:30 Dose: 1 tab Pantoprazole Sodium (Protonix -) 40 mg PO DAILY [facility] Last Admin: 09/23/18 11:27 Dose: 40 mg Tamsulosin HCl (Flomax -) 0.4 mg PO DAILY@0830 [facility] Last Admin: 09/23/18 11:27 Dose: 0.4 mg - Objective Vital Signs: Vital Signs Temperature 98.2 F 09/23/18 15:24 Pulse Rate 82 09/23/18 15:24 Respiratory Rate 18 09/23/18 15:24 Blood Pressure 110/65 09/23/18 15:24 O2 Sat by Pulse Oximetry (%) 94 L 09/22/18 21:00 Constitutional: Yes: No Distress, Calm, Thin Neck: Yes: Supple Cardiovascular: Yes: Regular Rate and Rhythm Respiratory: Yes: Regular, Diminished, On Nasal O2 Gastrointestinal: Yes: Normal Bowel Sounds, Soft Extremities: Yes: Amputation (Left BKA) Edema: Yes Edema: RLE: Trace Labs: CBC, BMP 09/23/18 07:00 09/23/18 07:00 INR, PTT INR 1.16 (0.83-1.09) H 09/14/18 05:30 Fibrinogen 443.0 mg/dL (238-498) 09/22/18 14:20 Problem List - Problems (1) Nephrotic range proteinuria Code(s): R80.9 - PROTEINURIA, UNSPECIFIED (2) Heart failure Code(s): I50.9 - HEART FAILURE, UNSPECIFIED Qualifiers: Heart failure type: combined systolic and diastolic Heart failure chronicity: acute on chronic Qualified Code(s): I50.43 - Acute on chronic combined systolic (congestive) and diastolic (congestive) heart failure (3) CKD (chronic kidney disease) Code(s): N18.9 - CHRONIC KIDNEY DISEASE, UNSPECIFIED Qualifiers: Chronic kidney disease stage: stage 3 (moderate) Qualified Code(s): N18.3 - Chronic kidney disease, stage 3 (moderate) (4) Cardiomyopathy as manifestation of underlying disease Code(s): I43 - CARDIOMYOPATHY IN DISEASES CLASSIFIED ELSEWHERE (5) Hypothyroid Code(s): E03.9 - HYPOTHYROIDISM, UNSPECIFIED Qualifiers: Hypothyroidism type: unspecified Qualified Code(s): E03.9 - Hypothyroidism , unspecified (6) COPD exacerbation Code(s): J44.1 - CHRONIC OBSTRUCTIVE PULMONARY DISEASE W (ACUTE) EXACERBATION Assessment/Plan Echocardiogram 05/30/2018 showed normal LV size, wall motion and systolic function. Normal RV. Borderline LA dilatation. Moderate with SADAF = 0.93cm2, PG = 33.3 mmHg, MG = 21.3 mmHg. Mild to moderate MR. No pericardial effusion. Echocardiogram 07/14/18 shows LV moderately dilated. LV systolic fx is mildly reduced. mild global hypokinesis of the LV. RV is normal in size and fx. moderate mitral regurg. mild to mod valvular aortic stenosis. EF-45-50%. Echocardiogram 09/12/2018: Dilated LV with moderate decreased LV fxn, mod- severe MR, normal RV size and fxn, mild pulm HTN RVSP 40 mmHg, ascites, mod AV sclerosis Chest CT 09/04/2018 Bilateral effusions with compressive ATX 1. BRAGG due to acute exacerbation of moderate to severe COPD 2. Acute on chronic diastolic/systolic failure 3. Anemia post transfusion, ? MDS vs multiple myeloma 4. CKD with proteinuria - nephrotic and history of hyperkalemia 5. HTN 6. Type 2 DM 7. hypothyroidism 8. Hypercholesterolemia 9. Abnormal LFT from hepatic congestion 10. 9 mm RUL pulmonary nodule and history of laryngeal cancer s/p XRT and chemotherapy 11. Left BKA PLAN: 1. Continue diuresis (currently IV Lasix) with monitor renal function and electrolytes 2. Continue bronchodilators, inhaled steroids, O2 as needed, smoking cessation 3. Continue ASA 81 qd, Lipitor 40 qhs, Losartan 25 mg QD, Hydralazine 25 mg BID and Toprol XL 75 mg QD as tolerated 4. Monitor H/H and transfuse PRBC as needed.
[2018-09-23] MEDS: METOLAZONE 5 MG TABLET PO SCH (17:59)
[2018-09-23] MEDS: ATORVASTATIN CA 40 MG TABLET (FP) PO SCH (21:42)
[2018-09-24] MEDS: INSULIN SLIDING SCALE (NOVOLOG) 1 VIAL SQ SCH ×4 (06:06→21:38)
[2018-09-24] MEDS: FUROSEMIDE 40 MG/4 ML INJECTABLE VIAL IVPUSH SCH ×2 (06:25→14:12)
[2018-09-24] MEDS: LEVOTHYROXINE NA 25 MCG TABLET (FP) PO SCH (06:25)
[2018-09-24] MEDS: HEPARIN NA (PORCINE) 5,000 UNITS/ML 1ML VIAL SQ SCH ×3 (06:25→21:38)
[2018-09-24] MEDS: ALBUTEROL SO4 2.5/IPRATROPIUM 0.5 INH SOL 3 ML VIAL.NEB. NEB SCH ×4 (07:08→20:03)
--- NOTE | 2018-09-24 08:52 | PN ---
Progress Note, Physician - Current Medication List Current Medications: Active Medications Albuterol/Ipratropium (Duoneb -) 1 amp NEB RQID [facility] Last Admin: 09/24/18 07:08 Dose: 1 amp Amoxicillin/Clavulanate Potassium (Augmentin - 500mg Tablet) 1 tab PO BID@0800, 1730 [facility] Last Admin: 09/23/18 17:59 Dose: 1 tab Atorvastatin Calcium (Lipitor -) 40 mg PO HS [facility] Last Admin: 09/23/18 21:42 Dose: 40 mg Budesonide/Formoterol Fumarate (Symbicort 160/4.5mcg -) 1 puff IH BID [facility] Last Admin: 09/23/18 21:44 Dose: 1 puff Cyanocobalamin (Vitamin B12 -) 1,000 mcg PO DAILY [facility] Last Admin: 09/23/18 11:27 Dose: 1,000 mcg Furosemide (Lasix Injection -) 60 mg IVPUSH BID@0600,1400 [facility] Last Admin: 09/24/18 06:25 Dose: 60 mg Gabapentin (Neurontin -) 100 mg PO BID [facility] Last Admin: 09/23/18 21:42 Dose: 100 mg Heparin Sodium (Porcine) (Heparin -) 5,000 unit SQ TID [facility] Last Admin: 09/24/18 06:25 Dose: 5,000 unit Hydralazine HCl (Apresoline -) 25 mg PO BID [facility] Last Admin: 09/23/18 21:42 Dose: 25 mg Insulin Aspart (Novolog Vial Sliding Scale -) 1 vial SQ ACHS [facility]; Protocol Last Admin: 09/24/18 06:06 Dose: Not Given Isosorbide Mononitrate (Imdur -) 30 mg PO DAILY [facility] Last Admin: 09/23/18 11:30 Dose: 30 mg Levothyroxine Sodium (Synthroid -) 25 mcg PO DAILY@0700 [facility] Last Admin: 09/24/18 06:25 Dose: 25 mcg Losartan Potassium (Cozaar -) 25 mg PO DAILY [facility] Last Admin: 09/23/18 11:31 Dose: 25 mg Magnesium Oxide (Mag-Ox -) 400 mg PO BID [facility] Last Admin: 09/23/18 21:42 Dose: 400 mg Metolazone (Zaroxolyn -) 5 mg PO DAILY [facility] Last Admin: 09/23/18 17:59 Dose: 5 mg Metoprolol Succinate (Toprol Xl -) 75 mg PO DAILY [facility] Last Admin: 09/23/18 11:27 Dose: 75 mg Multivitamins/Minerals/Vitamin C (Tab-A-Vit -) 1 tab PO DAILY [facility] Last Admin: 09/23/18 11:30 Dose: 1 tab Pantoprazole Sodium (Protonix -) 40 mg PO DAILY [facility] Last Admin: 09/23/18 11:27 Dose: 40 mg Tamsulosin HCl (Flomax -) 0.4 mg PO DAILY@0830 [facility] Last Admin: 09/23/18 11:27 Dose: 0.4 mg - Objective Vital Signs: Vital Signs Temperature 98.4 F 09/24/18 05:00 Pulse Rate 71 09/24/18 05:00 Respiratory Rate 17 09/24/18 05:00 Blood Pressure 107/60 09/24/18 05:00 O2 Sat by Pulse Oximetry (%) 94 L 09/23/18 21:00 Constitutional: Yes: Well Nourished, No Distress, Calm Eyes: Yes: WNL, Conjunctiva Clear, EOM Intact HENT: Yes: WNL, Atraumatic, Normocephalic Neck: Yes: WNL, Supple, Trachea Midline Cardiovascular: Yes: WNL, Regular Rate and Rhythm, Varicosities Respiratory: Yes: WNL, Regular, CTA Bilaterally, SOB on Exertion Gastrointestinal: Yes: Normal Bowel Sounds, Soft Musculoskeletal: Yes: WNL Extremities: Yes: WNL, Amputation Edema: LLE: 3+, RLE: 3+ Peripheral Pulses WNL: Yes Integumentary: Yes: WNL Neurological: Yes: WNL, Alert, Oriented Psychiatric: Yes: WNL, Alert, Oriented Labs: CBC, BMP 09/23/18 07:00 09/23/18 07:00 INR, PTT INR 1.16 (0.83-1.09) H 09/14/18 05:30 Fibrinogen 443.0 mg/dL (238-498) 09/22/18 14:20 Problem List - Problems (1) COPD exacerbation Code(s): J44.1 - CHRONIC OBSTRUCTIVE PULMONARY DISEASE W (ACUTE) EXACERBATION (2) Heart failure Code(s): I50.9 - HEART FAILURE, UNSPECIFIED Qualifiers: Heart failure type: combined systolic and diastolic Heart failure chronicity: acute on chronic Qualified Code(s): I50.43 - Acute on chronic combined systolic (congestive) and diastolic (congestive) heart failure (3) CKD (chronic kidney disease) Code(s): N18.9 - CHRONIC KIDNEY DISEASE, UNSPECIFIED Qualifiers: Chronic kidney disease stage: stage 3 (moderate) Qualified Code(s): N18.3 - Chronic kidney disease, stage 3 (moderate) (4) Anemia Code(s): D64.9 - ANEMIA, UNSPECIFIED Qualifiers: Anemia type: other cause Other causes of anemia: other cause, not classified Qualified Code(s): D64.89 - Other specified anemias (5) Cardiomyopathy as manifestation of underlying disease Code(s): I43 - CARDIOMYOPATHY IN DISEASES CLASSIFIED ELSEWHERE (6) Moderate aortic stenosis Code(s): I35.0 - NONRHEUMATIC AORTIC (VALVE) STENOSIS (7) COPD (chronic obstructive pulmonary disease) Code(s): J44.9 - CHRONIC OBSTRUCTIVE PULMONARY DISEASE, UNSPECIFIED (8) Hypothyroid Code(s): E03.9 - HYPOTHYROIDISM, UNSPECIFIED Qualifiers: Hypothyroidism type: unspecified Qualified Code(s): E03.9 - Hypothyroidism , unspecified (9) BPH (benign prostatic hyperplasia) Code(s): N40.0 - BENIGN PROSTATIC HYPERPLASIA WITHOUT LOWER URINRY TRACT SYMP (10) Macrocytic anemia Code(s): D53.9 - NUTRITIONAL ANEMIA, UNSPECIFIED (11) Dyslipidemia (high LDL; low HDL) Code(s): E78.5 - HYPERLIPIDEMIA, UNSPECIFIED (12) Non-insulin dependent type 2 diabetes mellitus Code(s): E11.9 - TYPE 2 DIABETES MELLITUS WITHOUT COMPLICATIONS Assessment/Plan (1) COPD exacerbation Code(s): J44.1 - CHRONIC OBSTRUCTIVE PULMONARY DISEASE W (ACUTE) EXACERBATION (2) Heart failure Assessment/Plan: 1. Acute on Chronic Systolic CHF with moderate , with clinical evidence of fluid overload BNP 40,000 CXR - chronic bilateral pleural effusions Echo - EF 45-50%, Moderate . Started on IV furosemide 80mg TWICE a day x 1 day then reassess the patient for the dose. Cardiology consult for optimization of CHF meds including diuretics and ACEI and eval for Aortic Stenosis. c/w metoprolol succinate . Daily weight, I/Os, Fluid Restriction Code(s): I50.9 - HEART FAILURE, UNSPECIFIED Qualifiers: Heart failure type: combined systolic and diastolic Heart failure chronicity: acute on chronic Qualified Code(s): I50.43 - Acute on chronic combined systolic (congestive) and diastolic (congestive) heart failure (3) CKD (chronic kidney disease) Assessment/Plan: CKD3 Creat 2.3 at presentation - at baseline - no labs available yet today. Follows with Nephrology Chronic Anemia - renal consulted for Epo Code(s): N18.9 - CHRONIC KIDNEY DISEASE, UNSPECIFIED Qualifiers: Chronic kidney disease stage: stage 3 (moderate) Qualified Code(s): N18.3 - Chronic kidney disease, stage 3 (moderate) (4) Anemia Assessment/Plan: 2/ to CKD will follow nephrology recommendation. Code(s): D64.9 - ANEMIA, UNSPECIFIED Qualifiers: Anemia type: other cause Other causes of anemia: other cause, not classified Qualified Code(s): D64.89 - Other specified anemias (5) Cardiomyopathy as manifestation of underlying disease Assessment/Plan: c/w metoprolol succinate titrate to achieve HR of 60-70BPM patient might benefit from addition of entresto (sacubatril/valsartan) after the MEENAKSHI resolves if ACEI/ARB or entresto are contra-indicated then consider hydralazine/ isosorbide for the CHF Code(s): I43 - CARDIOMYOPATHY IN DISEASES CLASSIFIED ELSEWHERE (6) Moderate aortic stenosis Assessment/Plan: stable avoid repeat echo to f.u the progression. Code(s): I35.0 - NONRHEUMATIC AORTIC (VALVE) STENOSIS (7) COPD (chronic obstructive pulmonary disease) Assessment/Plan: Chronic Respiratory Failure secondary to COPD exacerbation with DCHF No clear evidence of exacerbation Continue DuoNEbs. Given Solumedrol in ED - will hold any further doses for now. Afebrile, Hemodynamically Stable. Hold Abx. Continue Symbicort, DuoNebs Continue supplemental O2 via NC No respiratory distress currently s/p Lasix Code(s): J44.9 - CHRONIC OBSTRUCTIVE PULMONARY DISEASE, UNSPECIFIED (8) Hypothyroid Assessment/Plan: Hypothyroidism - Continue Levothyroxine. Code(s): E03.9 - HYPOTHYROIDISM, UNSPECIFIED Qualifiers: Hypothyroidism type: unspecified Qualified Code(s): E03.9 - Hypothyroidism , unspecified (9) BPH (benign prostatic hyperplasia) Assessment/Plan: c/w tamsulosin 0.4mg daily Code(s): N40.0 - BENIGN PROSTATIC HYPERPLASIA WITHOUT LOWER URINRY TRACT SYMP (10) Macrocytic anemia Assessment/Plan: 5. Chronic Macrocytic Anemia B12/Folate wnl H/O consulted for work-up for MDS. H/H 7.4/21.6 MCV 104.3 Will monitor. Code(s): D53.9 - NUTRITIONAL ANEMIA, UNSPECIFIED (11) Dyslipidemia (high LDL; low HDL) Assessment/Plan: Continue Statin Code(s): E78.5 - HYPERLIPIDEMIA, UNSPECIFIED (12) Non-insulin dependent type 2 diabetes mellitus Assessment/Plan: DM 2 - Normally on Januvia. Will maintain on SSI during in-patient stay. Code(s): E11.9 - TYPE 2 DIABETES MELLITUS WITHOUT COMPLICATIONS DVT Px - Heparin SQ
[2018-09-24] MEDS: GABAPENTIN 100 MG CAPSULE (FP) PO SCH ×2 (09:47→21:38)
[2018-09-24] MEDS: ISOSORBIDE MONONITRATE 30 MG TAB.SR.24H (FP) PO SCH (09:47)
[2018-09-24] MEDS: MAGNESIUM OXIDE 400 MG TABLET (FP) PO SCH ×2 (09:47→21:38)
[2018-09-24] MEDS: PANTOPRAZOLE 40 MG TABLET (FP) PO SCH (09:48)
[2018-09-24] MEDS: MULTIVITAMINS (DAILY MVI) TABLET (FP) PO SCH (09:48)
[2018-09-24] MEDS: LOSARTAN POTASSIUM 25 MG TABLET PO SCH (09:48)
[2018-09-24] MEDS: TAMSULOSIN HCL 0.4 MG CAP PO SCH (09:49)
[2018-09-24] MEDS: hydrALAZINE HCL 25 MG TABLET (FP) PO SCH ×2 (09:49→21:38)
[2018-09-24] MEDS: AMOX TR/POT CLAV 500MG/125MG TABLETS (FP) PO SCH ×2 (09:49→18:02)
[2018-09-24] MEDS: BUDESONIDE/FORMETEROL FUMARATE 160/4.5 mcg INHALER IH SCH ×2 (09:50→21:39)
[2018-09-24] MEDS: CYANOCOBALAMIN 1,000 MCG TABLET (FP) PO SCH (09:51)
[2018-09-24] MEDS: METOLAZONE 5 MG TABLET PO SCH (09:51)
--- NOTE | 2018-09-24 12:00 | PN ---
Progress Note (short form) - Note Progress Note: Overall feels better. NAD on NC O2. Intake & Output 09/21/18 09/22/18 09/23/18 09/24/18 23:59 23:59 23:59 23:59 Intake Total 1490 1745 740 Output Total 2100 500 2250 Balance -610 1245 -1510 Weight 191 lb 1.6 oz 187 lb 6.4 oz 188 lb Last Vital Signs Temp Pulse Resp BP Pulse Ox 98 F 78 18 116/68 94 L 09/24/18 09:00 09/24/18 11:27 09/24/18 09:00 09/24/18 11:27 09/23/18 21:00 Active Medications Albuterol/Ipratropium (Duoneb -) 1 amp NEB RQID [facility] Last Admin: 09/24/18 07:08 Dose: 1 amp Amoxicillin/Clavulanate Potassium (Augmentin - 500mg Tablet) 1 tab PO BID@0800, 1730 [facility] Last Admin: 09/24/18 09:49 Dose: 1 tab Atorvastatin Calcium (Lipitor -) 40 mg PO HS [facility] Last Admin: 09/23/18 21:42 Dose: 40 mg Budesonide/Formoterol Fumarate (Symbicort 160/4.5mcg -) 1 puff IH BID [facility] Last Admin: 09/24/18 09:50 Dose: 1 puff Cyanocobalamin (Vitamin B12 -) 1,000 mcg PO DAILY [facility] Last Admin: 09/24/18 09:51 Dose: 1,000 mcg Furosemide (Lasix Injection -) 60 mg IVPUSH BID@0600,1400 [facility] Last Admin: 09/24/18 06:25 Dose: 60 mg Gabapentin (Neurontin -) 100 mg PO BID [facility] Last Admin: 09/24/18 09:47 Dose: 100 mg Heparin Sodium (Porcine) (Heparin -) 5,000 unit SQ TID [facility] Last Admin: 09/24/18 06:25 Dose: 5,000 unit Hydralazine HCl (Apresoline -) 25 mg PO BID [facility] Last Admin: 09/24/18 09:49 Dose: 25 mg Insulin Aspart (Novolog Vial Sliding Scale -) 1 vial SQ [facility]; Protocol Last Admin: 09/24/18 11:24 Dose: 2 units Isosorbide Mononitrate (Imdur -) 30 mg PO DAILY [facility] Last Admin: 09/24/18 09:47 Dose: 30 mg Levothyroxine Sodium (Synthroid -) 25 mcg PO DAILY@0700 [facility] Last Admin: 09/24/18 06:25 Dose: 25 mcg Losartan Potassium (Cozaar -) 25 mg PO DAILY [facility] Last Admin: 09/24/18 09:48 Dose: Not Given Magnesium Oxide (Mag-Ox -) 400 mg PO BID [facility] Last Admin: 09/24/18 09:47 Dose: 400 mg Metolazone (Zaroxolyn -) 5 mg PO DAILY [facility] Last Admin: 09/24/18 09:51 Dose: 5 mg Metoprolol Succinate (Toprol Xl -) 75 mg PO DAILY [facility] Last Admin: 09/24/18 11:19 Dose: 75 mg Multivitamins/Minerals/Vitamin C (Tab-A-Vit -) 1 tab PO DAILY [facility] Last Admin: 09/24/18 09:48 Dose: 1 tab Pantoprazole Sodium (Protonix -) 40 mg PO DAILY [facility] Last Admin: 09/24/18 09:48 Dose: 40 mg Tamsulosin HCl (Flomax -) 0.4 mg PO DAILY@0830 [facility] Last Admin: 09/24/18 09:49 Dose: 0.4 mg Constitutional: Yes: NAD Eyes: Yes: WNL HENT: Yes: WNL Neck: Yes: WNL Cardiovascular: Yes: Regular Rate and Rhythm, S1, S2 Respiratory: Yes: Few scattered rhonchi Gastrointestinal: Yes: Normal Bowel Sounds, Soft Extremities: Yes: Amputation (left bka) Edema: Yes Labs: Laboratory Results - last 24 hr 09/19/18 09/23/18 09/23/18 10:42 12:23 17:08 POC Glucometer 201 135 Blood Type A POSITIVE Antibody Screen Negative Crossmatch See Detail 09/23/18 09/24/18 09/24/18 21:40 05:39 11:22 POC Glucometer 197 150 194 Blood Type Antibody Screen Crossmatch Problem List - Problems (1) BPH (benign prostatic hyperplasia) Code(s): N40.0 - BENIGN PROSTATIC HYPERPLASIA WITHOUT LOWER URINRY TRACT SYMP (2) COPD exacerbation Code(s): J44.1 - CHRONIC OBSTRUCTIVE PULMONARY DISEASE W (ACUTE) EXACERBATION (3) Dyslipidemia (high LDL; low HDL) Code(s): E78.5 - HYPERLIPIDEMIA, UNSPECIFIED (4) HTN (hypertension) Code(s): I10 - ESSENTIAL (PRIMARY) HYPERTENSION (5) Heart failure Code(s): I50.9 - HEART FAILURE, UNSPECIFIED Qualifiers: Heart failure type: combined systolic and diastolic Heart failure chronicity: acute on chronic Qualified Code(s): I50.43 - Acute on chronic combined systolic (congestive) and diastolic (congestive) heart failure (6) Nephrotic range proteinuria Code(s): R80.9 - PROTEINURIA, UNSPECIFIED (7) Non-insulin dependent type 2 diabetes mellitus Code(s): E11.9 - TYPE 2 DIABETES MELLITUS WITHOUT COMPLICATIONS (8) Shortness of breath Code(s): R06.02 - SHORTNESS OF BREATH (9) CKD (chronic kidney disease) Code(s): N18.9 - CHRONIC KIDNEY DISEASE, UNSPECIFIED Qualifiers: Chronic kidney disease stage: stage 3 (moderate) Qualified Code(s): N18.3 - Chronic kidney disease, stage 3 (moderate) (10) Anemia Code(s): D64.9 - ANEMIA, UNSPECIFIED Qualifiers: Anemia type: other cause Other causes of anemia: other cause, not classified Qualified Code(s): D64.89 - Other specified anemias (11) Cardiomyopathy as manifestation of underlying disease Code(s): I43 - CARDIOMYOPATHY IN DISEASES CLASSIFIED ELSEWHERE (12) Diastolic dysfunction Code(s): I51.9 - HEART DISEASE, UNSPECIFIED Assessment/Plan AE mod-severe copd improving Active smoker Acute on chronic diastolic/systolic failure Anemia CKD with proteinuria - nephrotic and h/o hyperkalemia HTN Type 2 DM hypothyroidism HLD 9 mm RUL pulm nodule, 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
--- NOTE | 2018-09-24 13:36 | PN ---
Progress Note (short form) - Note Progress Note: Chief Complaint: Events noted, notes reviewed, dyspnea improved, denies any chest pain History of Present Illness: Patient seen and examined. Events noted, notes reviewed, dyspnea improved, denies any chest pain - Current Medication List Current Medications: Active Medications Current Medications Albuterol/Ipratropium (Duoneb -) 1 amp NEB RQID [facility] Last Admin: 09/24/18 07:08 Dose: 1 amp Amoxicillin/Clavulanate Potassium (Augmentin - 500mg Tablet) 1 tab PO BID@0800, 1730 [facility] Last Admin: 09/24/18 09:49 Dose: 1 tab Atorvastatin Calcium (Lipitor -) 40 mg PO HS [facility] Last Admin: 09/23/18 21:42 Dose: 40 mg Budesonide/Formoterol Fumarate (Symbicort 160/4.5mcg -) 2 puff IH BID [facility] Cyanocobalamin (Vitamin B12 -) 1,000 mcg PO DAILY [facility] Last Admin: 09/24/18 09:51 Dose: 1,000 mcg Furosemide (Lasix Injection -) 60 mg IVPUSH BID@0600,1400 [facility] Last Admin: 09/24/18 06:25 Dose: 60 mg Gabapentin (Neurontin -) 100 mg PO BID [facility] Last Admin: 09/24/18 09:47 Dose: 100 mg Heparin Sodium (Porcine) (Heparin -) 5,000 unit SQ TID [facility] Last Admin: 09/24/18 06:25 Dose: 5,000 unit Hydralazine HCl (Apresoline -) 25 mg PO BID [facility] Last Admin: 09/24/18 09:49 Dose: 25 mg Insulin Aspart (Novolog Vial Sliding Scale -) 1 vial SQ ACHS [facility]; Protocol Last Admin: 09/24/18 11:24 Dose: 2 units Isosorbide Mononitrate (Imdur -) 30 mg PO DAILY [facility] Last Admin: 09/24/18 09:47 Dose: 30 mg Levothyroxine Sodium (Synthroid -) 25 mcg PO DAILY@0700 [facility] Last Admin: 09/24/18 06:25 Dose: 25 mcg Losartan Potassium (Cozaar -) 25 mg PO DAILY [facility] Last Admin: 09/24/18 09:48 Dose: Not Given Magnesium Oxide (Mag-Ox -) 400 mg PO BID [facility] Last Admin: 09/24/18 09:47 Dose: 400 mg Metolazone (Zaroxolyn -) 5 mg PO DAILY [facility] Last Admin: 09/24/18 09:51 Dose: 5 mg Metoprolol Succinate (Toprol Xl -) 75 mg PO DAILY [facility] Last Admin: 09/24/18 11:19 Dose: 75 mg Multivitamins/Minerals/Vitamin C (Tab-A-Vit -) 1 tab PO DAILY [facility] Last Admin: 09/24/18 09:48 Dose: 1 tab Pantoprazole Sodium (Protonix -) 40 mg PO DAILY [facility] Last Admin: 09/24/18 09:48 Dose: 40 mg Tamsulosin HCl (Flomax -) 0.4 mg PO DAILY@0830 [facility] Last Admin: 09/24/18 09:49 Dose: 0.4 mg - Review of Systems Constitutional: denies: Chills, Fever Cardiovascular: As noted above Respiratory: denies: Cough or Sputum Production Gastrointestinal: denies: Nausea, Vomiting, Diarrhea, Constipation or Abdominal Pain Genitourinary: denies: Dysuria, Hematuria Neurological: denies: Dizziness - Objective Vital Signs: Last Vital Signs Temp Pulse Resp BP Pulse Ox 98 F 78 18 116/68 94 L 09/24/18 09:00 09/24/18 11:27 09/24/18 09:00 09/24/18 11:27 09/23/18 21:00 Intake & Output 09/21/18 09/22/18 09/23/18 09/24/18 23:59 23:59 23:59 23:59 Intake Total 1490 1745 740 Output Total 2100 500 2250 Balance -610 1245 -1510 Weight 191 lb 1.6 oz 187 lb 6.4 oz 188 lb Neck: Supple Negative JVD Cardiovascular: S1 S2 Regularly Rate and Rhythm Respiratory: Clear to A&P Bilaterally Gastrointestinal: Soft Benign Normal Bowel Sounds Ext: Trace Edema RLE Labs: CBC, BMP 09/23/18 07:00 09/23/18 07:00 Assessment/Plan ASSESSMENT: 1. Acute exacerbation of moderate to severe COPD, resolving 2. Acute on chronic class II NYHA classification LV diastolic/systolic failure, resolving 3. CAD angina pectoris 4. HTN 5. DM 6. Hypercholesterolemia 7. Hypothyroidism 8. CKD 9. Abnormal LFT from hepatic congestion 10. Anemia post transfusion etiology to be determined 11. Left BKA PLAN: 1. Continue Xaroxolyn and IV Lasix with caution and monitor renal function and electrolytes 2. Continue Toprol XL 3. Continue Cozaar 4. Continue Hydralazine 5. Continue ASA 6. Continue Lipitor 7. Continue bronchodilators and inhaled steroids Clifton Summers M.D.
--- NOTE | 2018-09-24 16:35 | PN ---
Progress Note, Physician History of Present Illness: Pt seen and examined. Events reviewed. Pt states he has less SOB, no productive cough. - Current Medication List Current Medications: Active Medications Albuterol/Ipratropium (Duoneb -) 1 amp NEB RQID [facility] Last Admin: 09/24/18 13:30 Dose: 1 amp Amoxicillin/Clavulanate Potassium (Augmentin - 500mg Tablet) 1 tab PO BID@0800, 1730 [facility] Last Admin: 09/24/18 09:49 Dose: 1 tab Atorvastatin Calcium (Lipitor -) 40 mg PO HS [facility] Last Admin: 09/23/18 21:42 Dose: 40 mg Budesonide/Formoterol Fumarate (Symbicort 160/4.5mcg -) 2 puff IH BID [facility] Cyanocobalamin (Vitamin B12 -) 1,000 mcg PO DAILY [facility] Last Admin: 09/24/18 09:51 Dose: 1,000 mcg Furosemide (Lasix Injection -) 60 mg IVPUSH BID@0600,1400 [facility] Last Admin: 09/24/18 14:12 Dose: 60 mg Gabapentin (Neurontin -) 100 mg PO BID [facility] Last Admin: 09/24/18 09:47 Dose: 100 mg Heparin Sodium (Porcine) (Heparin -) 5,000 unit SQ TID [facility] Last Admin: 09/24/18 14:12 Dose: 5,000 unit Hydralazine HCl (Apresoline -) 25 mg PO BID [facility] Last Admin: 09/24/18 09:49 Dose: 25 mg Insulin Aspart (Novolog Vial Sliding Scale -) 1 vial SQ [facility]; Protocol Last Admin: 09/24/18 11:24 Dose: 2 units Isosorbide Mononitrate (Imdur -) 30 mg PO DAILY [facility] Last Admin: 09/24/18 09:47 Dose: 30 mg Levothyroxine Sodium (Synthroid -) 25 mcg PO DAILY@0700 [facility] Last Admin: 09/24/18 06:25 Dose: 25 mcg Losartan Potassium (Cozaar -) 25 mg PO DAILY [facility] Last Admin: 09/24/18 09:48 Dose: Not Given Magnesium Oxide (Mag-Ox -) 400 mg PO BID [facility] Last Admin: 09/24/18 09:47 Dose: 400 mg Metolazone (Zaroxolyn -) 5 mg PO DAILY [facility] Last Admin: 09/24/18 09:51 Dose: 5 mg Metoprolol Succinate (Toprol Xl -) 75 mg PO DAILY [facility] Last Admin: 09/24/18 11:19 Dose: 75 mg Multivitamins/Minerals/Vitamin C (Tab-A-Vit -) 1 tab PO DAILY [facility] Last Admin: 09/24/18 09:48 Dose: 1 tab Pantoprazole Sodium (Protonix -) 40 mg PO DAILY [facility] Last Admin: 09/24/18 09:48 Dose: 40 mg Tamsulosin HCl (Flomax -) 0.4 mg PO DAILY@0830 [facility] Last Admin: 09/24/18 09:49 Dose: 0.4 mg - Objective Vital Signs: Vital Signs Temperature 98.8 F 09/24/18 14:34 Pulse Rate 74 09/24/18 14:34 Respiratory Rate 18 09/24/18 14:34 Blood Pressure 114/59 L 09/24/18 14:34 O2 Sat by Pulse Oximetry (%) 94 L 09/23/18 21:00 Constitutional: Yes: No Distress, Calm Cardiovascular: Yes: Regular Rate and Rhythm Respiratory: Yes: Rhonchi (scattered) Gastrointestinal: Yes: Normal Bowel Sounds, Soft Genitourinary: Yes: WNL Integumentary: Yes: WNL Neurological: Yes: Alert Labs: CBC, BMP 09/23/18 07:00 09/23/18 07:00 INR, PTT INR 1.16 (0.83-1.09) H 09/14/18 05:30 Fibrinogen 443.0 mg/dL (238-498) 09/22/18 14:20 Microbiology 09/17/18 17:14 Sputum - Expectorated Gram Stain - Final 09/17/18 17:14 Sputum - Expectorated Sputum Culture - Final Klebsiella Pneumoniae 09/11/18 09:03 Blood - Peripheral Venous Blood Culture - Final NO GROWTH AFTER 5 DAYS INCUBATION 09/11/18 09:45 Blood - Peripheral Venous Blood Culture - Final NO GROWTH AFTER 5 DAYS INCUBATION Problem List - Problems (1) COPD exacerbation Code(s): J44.1 - CHRONIC OBSTRUCTIVE PULMONARY DISEASE W (ACUTE) EXACERBATION (2) Dyslipidemia (high LDL; low HDL) Code(s): E78.5 - HYPERLIPIDEMIA, UNSPECIFIED (3) HTN (hypertension) Code(s): I10 - ESSENTIAL (PRIMARY) HYPERTENSION Qualifiers: Hypertension type: essential hypertension Qualified Code(s): I10 - Essential (primary) hypertension (4) Heart failure Code(s): I50.9 - HEART FAILURE, UNSPECIFIED Qualifiers: Heart failure type: combined systolic and diastolic Heart failure chronicity: acute on chronic Qualified Code(s): I50.43 - Acute on chronic combined systolic (congestive) and diastolic (congestive) heart failure (5) Klebsiella pneumonia Code(s): J15.0 - PNEUMONIA DUE TO KLEBSIELLA PNEUMONIAE (6) Non-insulin dependent type 2 diabetes mellitus Code(s): E11.9 - TYPE 2 DIABETES MELLITUS WITHOUT COMPLICATIONS (7) CKD (chronic kidney disease) Code(s): N18.9 - CHRONIC KIDNEY DISEASE, UNSPECIFIED Qualifiers: Chronic kidney disease stage: stage 3 (moderate) Qualified Code(s): N18.3 - Chronic kidney disease, stage 3 (moderate) (8) Anemia Code(s): D64.9 - ANEMIA, UNSPECIFIED Qualifiers: Anemia type: other cause Other causes of anemia: other cause, not classified Qualified Code(s): D64.89 - Other specified anemias Assessment/Plan Acute COPD Exacerbation CHF CKD DM Pulmonary nodule -- on Augmentin, bronchodilators -- pt with less SOB, remains afebrile
[2018-09-24] MEDS ORDERED: INSULIN (NOVOLOG) ASPART 100 UNITS/ML 10ML VIAL ONE (20:52)
[2018-09-24] MEDS ORDERED: PT OWN MED DRAWER 7, Y5N ONE (20:52)
[2018-09-24] MEDS: ATORVASTATIN CA 40 MG TABLET (FP) PO SCH (21:38)
--- NOTE | 2018-09-24 22:27 | PN ---
Progress Note (short form) - Note Progress Note: Problems 1. CKD 2. anemia 3. history of hyperkalemia 4. HTN 5. DM 6. hypothyroidism 7. HLD 8. copd 9. proteinuria - nephrotic 10. active smoker 11. fluid overload Current Medications Albuterol/Ipratropium (Duoneb -) 1 amp NEB RQID [facility] Last Admin: 09/24/18 20:03 Dose: 1 amp Amoxicillin/Clavulanate Potassium (Augmentin - 500mg Tablet) 1 tab PO BID@0800, 1730 [facility] Last Admin: 09/24/18 18:02 Dose: 1 tab Atorvastatin Calcium (Lipitor -) 40 mg PO HS [facility] Last Admin: 09/24/18 21:38 Dose: 40 mg Budesonide/Formoterol Fumarate (Symbicort 160/4.5mcg -) 2 puff IH BID [facility] Last Admin: 09/24/18 21:39 Dose: 2 puff Cyanocobalamin (Vitamin B12 -) 1,000 mcg PO DAILY [facility] Last Admin: 09/24/18 09:51 Dose: 1,000 mcg Furosemide (Lasix Injection -) 60 mg IVPUSH BID@0600,1400 [facility] Last Admin: 09/24/18 14:12 Dose: 60 mg Gabapentin (Neurontin -) 100 mg PO BID [facility] Last Admin: 09/24/18 21:38 Dose: 100 mg Heparin Sodium (Porcine) (Heparin -) 5,000 unit SQ TID [facility] Last Admin: 09/24/18 21:38 Dose: 5,000 unit Hydralazine HCl (Apresoline -) 25 mg PO BID [facility] Last Admin: 09/24/18 21:38 Dose: 25 mg Insulin Aspart (Novolog Vial Sliding Scale -) 1 vial SQ ACHS [facility]; Protocol Last Admin: 09/24/18 21:38 Dose: 4 units Isosorbide Mononitrate (Imdur -) 30 mg PO DAILY [facility] Last Admin: 09/24/18 09:47 Dose: 30 mg Levothyroxine Sodium (Synthroid -) 25 mcg PO DAILY@0700 [facility] Last Admin: 09/24/18 06:25 Dose: 25 mcg Losartan Potassium (Cozaar -) 25 mg PO [facility] Magnesium Oxide (Mag-Ox -) 400 mg PO BID [facility] Last Admin: 09/24/18 21:38 Dose: 400 mg Metolazone (Zaroxolyn -) 5 mg PO DAILY [facility] Last Admin: 09/24/18 09:51 Dose: 5 mg Metoprolol Succinate (Toprol Xl -) 75 mg PO DAILY [facility] Last Admin: 09/24/18 11:19 Dose: 75 mg Multivitamins/Minerals/Vitamin C (Tab-A-Vit -) 1 tab PO DAILY [facility] Last Admin: 09/24/18 09:48 Dose: 1 tab Pantoprazole Sodium (Protonix -) 40 mg PO DAILY [facility] Last Admin: 09/24/18 09:48 Dose: 40 mg Tamsulosin HCl (Flomax -) 0.4 mg PO DAILY@0830 [facility] Last Admin: 09/24/18 09:49 Dose: 0.4 mg Last Vital Signs Temp Pulse Resp BP Pulse Ox 98.6 F 67 18 111/56 L 94 L 09/24/18 22:00 09/24/18 22:00 09/24/18 22:00 09/24/18 22:00 09/24/18 09:00 Lungs rhonchi Heart reg Abd soft Ext rle edema L bka CBC, BMP 09/23/18 07:00 09/23/18 07:00 Plan- continue same rx
[2018-09-25] MEDS: FUROSEMIDE 40 MG/4 ML INJECTABLE VIAL IVPUSH SCH ×2 (06:39→14:14)
[2018-09-25] MEDS: LEVOTHYROXINE NA 25 MCG TABLET (FP) PO SCH (06:40)
[2018-09-25] MEDS: INSULIN SLIDING SCALE (NOVOLOG) 1 VIAL SQ SCH ×4 (06:40→21:53)
[2018-09-25] MEDS: HEPARIN NA (PORCINE) 5,000 UNITS/ML 1ML VIAL SQ SCH ×3 (06:40→21:55)
[2018-09-25] MEDS: ALBUTEROL SO4 2.5/IPRATROPIUM 0.5 INH SOL 3 ML VIAL.NEB. NEB SCH ×4 (07:30→19:46)
[2018-09-25] MEDS ORDERED: INSULIN (NOVOLOG) ASPART 100 UNITS/ML 10ML VIAL ONE ×2 (08:04→12:10)
[2018-09-25] MEDS ORDERED: PT OWN MED DRAWER 7, Y5N ONE ×4 (08:04→16:54)
--- NOTE | 2018-09-25 08:14 | PN ---
Progress Note, Physician History of Present Illness: 67 year old male assisted living facility resident, with history of larngeal Ca s/p RTx, Chronic Systolic CHF, BPH, Chronic Respiratory Failure sec to COPD/CHF on 2L O2 via NC (recently discharged 09/05/18), active smoker, CKD 3, Chronic Anemia, HTN, HLD, PAD s/p LBKA, Hypothyroidism, presents with increasing SOB for 1 month worse over the past 3 days, exacerbated by exertion, not accompanied by CP/palps/orthopnea or PND. No fever/chills/cough/sputum. - Current Medication List Current Medications: Active Medications Albuterol/Ipratropium (Duoneb -) 1 amp NEB RQID [facility] Last Admin: 09/24/18 20:03 Dose: 1 amp Amoxicillin/Clavulanate Potassium (Augmentin - 500mg Tablet) 1 tab PO BID@0800, 1730 [facility] Last Admin: 09/24/18 18:02 Dose: 1 tab Atorvastatin Calcium (Lipitor -) 40 mg PO HS [facility] Last Admin: 09/24/18 21:38 Dose: 40 mg Budesonide/Formoterol Fumarate (Symbicort 160/4.5mcg -) 2 puff IH BID [facility] Last Admin: 09/24/18 21:39 Dose: 2 puff Cyanocobalamin (Vitamin B12 -) 1,000 mcg PO DAILY [facility] Last Admin: 09/24/18 09:51 Dose: 1,000 mcg Furosemide (Lasix Injection -) 60 mg IVPUSH BID@0600,1400 [facility] Last Admin: 09/25/18 06:39 Dose: 60 mg Gabapentin (Neurontin -) 100 mg PO BID [facility] Last Admin: 09/24/18 21:38 Dose: 100 mg Heparin Sodium (Porcine) (Heparin -) 5,000 unit SQ TID [facility] Last Admin: 09/25/18 06:40 Dose: 5,000 unit Hydralazine HCl (Apresoline -) 25 mg PO BID [facility] Last Admin: 09/24/18 21:38 Dose: 25 mg Insulin Aspart (Novolog Vial Sliding Scale -) 1 vial SQ ACHS [facility]; Protocol Last Admin: 09/25/18 06:40 Dose: Not Given Isosorbide Mononitrate (Imdur -) 30 mg PO DAILY [facility] Last Admin: 09/24/18 09:47 Dose: 30 mg Levothyroxine Sodium (Synthroid -) 25 mcg PO DAILY@0700 [facility] Last Admin: 09/25/18 06:40 Dose: 25 mcg Losartan Potassium (Cozaar -) 25 mg PO [facility] Magnesium Oxide (Mag-Ox -) 400 mg PO BID [facility] Last Admin: 09/24/18 21:38 Dose: 400 mg Metolazone (Zaroxolyn -) 5 mg PO DAILY [facility] Last Admin: 09/24/18 09:51 Dose: 5 mg Metoprolol Succinate (Toprol Xl -) 75 mg PO DAILY [facility] Last Admin: 09/24/18 11:19 Dose: 75 mg Multivitamins/Minerals/Vitamin C (Tab-A-Vit -) 1 tab PO DAILY [facility] Last Admin: 09/24/18 09:48 Dose: 1 tab Pantoprazole Sodium (Protonix -) 40 mg PO DAILY [facility] Last Admin: 09/24/18 09:48 Dose: 40 mg Tamsulosin HCl (Flomax -) 0.4 mg PO DAILY@0830 [facility] Last Admin: 09/24/18 09:49 Dose: 0.4 mg - Objective Vital Signs: Vital Signs Temperature 98.6 F 09/24/18 22:00 Pulse Rate 69 09/25/18 06:00 Respiratory Rate 20 09/25/18 06:00 Blood Pressure 106/64 09/25/18 06:00 O2 Sat by Pulse Oximetry (%) 95 09/24/18 21:00 Constitutional: Yes: Well Nourished, No Distress, Calm Eyes: Yes: WNL, Conjunctiva Clear, EOM Intact HENT: Yes: WNL, Atraumatic, Normocephalic Neck: Yes: WNL, Supple, Trachea Midline Cardiovascular: Yes: WNL, Regular Rate and Rhythm, S1, S2 Respiratory: Yes: WNL, Regular, CTA Bilaterally, Wheezes Gastrointestinal: Yes: WNL, Normal Bowel Sounds, Soft Musculoskeletal: Yes: WNL Extremities: Yes: WNL, Amputation Edema: No Peripheral Pulses WNL: Yes Integumentary: Yes: WNL Neurological: Yes: WNL, Alert, Oriented ...Motor Strength: WNL Psychiatric: Yes: WNL, Alert, Oriented Labs: INR, PTT INR 1.16 (0.83-1.09) H 09/14/18 05:30 Fibrinogen 443.0 mg/dL (238-498) 09/22/18 14:20 Problem List - Problems (1) COPD exacerbation Code(s): J44.1 - CHRONIC OBSTRUCTIVE PULMONARY DISEASE W (ACUTE) EXACERBATION (2) Heart failure Code(s): I50.9 - HEART FAILURE, UNSPECIFIED Qualifiers: Heart failure type: combined systolic and diastolic Heart failure chronicity: acute on chronic Qualified Code(s): I50.43 - Acute on chronic combined systolic (congestive) and diastolic (congestive) heart failure (3) CKD (chronic kidney disease) Code(s): N18.9 - CHRONIC KIDNEY DISEASE, UNSPECIFIED Qualifiers: Chronic kidney disease stage: stage 3 (moderate) Qualified Code(s): N18.3 - Chronic kidney disease, stage 3 (moderate) (4) Anemia Code(s): D64.9 - ANEMIA, UNSPECIFIED Qualifiers: Anemia type: other cause Other causes of anemia: other cause, not classified Qualified Code(s): D64.89 - Other specified anemias (5) Cardiomyopathy as manifestation of underlying disease Code(s): I43 - CARDIOMYOPATHY IN DISEASES CLASSIFIED ELSEWHERE (6) Moderate aortic stenosis Code(s): I35.0 - NONRHEUMATIC AORTIC (VALVE) STENOSIS (7) COPD (chronic obstructive pulmonary disease) Code(s): J44.9 - CHRONIC OBSTRUCTIVE PULMONARY DISEASE, UNSPECIFIED (8) Hypothyroid Code(s): E03.9 - HYPOTHYROIDISM, UNSPECIFIED Qualifiers: Hypothyroidism type: unspecified Qualified Code(s): E03.9 - Hypothyroidism , unspecified (9) BPH (benign prostatic hyperplasia) Code(s): N40.0 - BENIGN PROSTATIC HYPERPLASIA WITHOUT LOWER URINRY TRACT SYMP (10) Macrocytic anemia Code(s): D53.9 - NUTRITIONAL ANEMIA, UNSPECIFIED (11) Dyslipidemia (high LDL; low HDL) Code(s): E78.5 - HYPERLIPIDEMIA, UNSPECIFIED (12) Non-insulin dependent type 2 diabetes mellitus Code(s): E11.9 - TYPE 2 DIABETES MELLITUS WITHOUT COMPLICATIONS Assessment/Plan (1) COPD exacerbation Code(s): J44.1 - CHRONIC OBSTRUCTIVE PULMONARY DISEASE W (ACUTE) EXACERBATION (2) Heart failure Assessment/Plan: 1. Acute on Chronic Systolic CHF with moderate , with clinical evidence of fluid overload BNP 40,000 CXR - chronic bilateral pleural effusions Echo - EF 45-50%, Moderate . Started on IV furosemide 80mg TWICE a day x 1 day then reassess the patient for the dose. Cardiology consult for optimization of CHF meds including diuretics and ACEI and eval for Aortic Stenosis. c/w metoprolol succinate . Daily weight, I/Os, Fluid Restriction Code(s): I50.9 - HEART FAILURE, UNSPECIFIED Qualifiers: Heart failure type: combined systolic and diastolic Heart failure chronicity: acute on chronic Qualified Code(s): I50.43 - Acute on chronic combined systolic (congestive) and diastolic (congestive) heart failure (3) CKD (chronic kidney disease) Assessment/Plan: CKD3 Creat 2.3 at presentation - at baseline - no labs available yet today. Follows with Nephrology Chronic Anemia - renal consulted for Epo Code(s): N18.9 - CHRONIC KIDNEY DISEASE, UNSPECIFIED Qualifiers: Chronic kidney disease stage: stage 3 (moderate) Qualified Code(s): N18.3 - Chronic kidney disease, stage 3 (moderate) (4) Anemia Assessment/Plan: 2/2 to CKD will follow nephrology recommendation. Code(s): D64.9 - ANEMIA, UNSPECIFIED Qualifiers: Anemia type: other cause Other causes of anemia: other cause, not classified Qualified Code(s): D64.89 - Other specified anemias (5) Cardiomyopathy as manifestation of underlying disease Assessment/Plan: c/w metoprolol succinate titrate to achieve HR of 60-70BPM patient might benefit from addition of entresto (sacubatril/valsartan) after the MEENAKSHI resolves if ACEI/ARB or entresto are contra-indicated then consider hydralazine/ isosorbide for the CHF Code(s): I43 - CARDIOMYOPATHY IN DISEASES CLASSIFIED ELSEWHERE (6) Moderate aortic stenosis Assessment/Plan: stable avoid repeat echo to f.u the progression. Code(s): I35.0 - NONRHEUMATIC AORTIC (VALVE) STENOSIS (7) COPD (chronic obstructive pulmonary disease) Assessment/Plan: Chronic Respiratory Failure secondary to COPD exacerbation with DCHF No clear evidence of exacerbation Continue DuoNEbs. Given Solumedrol in ED - will hold any further doses for now. Afebrile, Hemodynamically Stable. Hold Abx. Continue Symbicort, DuoNebs Continue supplemental O2 via NC No respiratory distress currently s/p Lasix Code(s): J44.9 - CHRONIC OBSTRUCTIVE PULMONARY DISEASE, UNSPECIFIED (8) Hypothyroid Assessment/Plan: Hypothyroidism - Continue Levothyroxine. Code(s): E03.9 - HYPOTHYROIDISM, UNSPECIFIED Qualifiers: Hypothyroidism type: unspecified Qualified Code(s): E03.9 - Hypothyroidism , unspecified (9) BPH (benign prostatic hyperplasia) Assessment/Plan: c/w tamsulosin 0.4mg daily Code(s): N40.0 - BENIGN PROSTATIC HYPERPLASIA WITHOUT LOWER URINRY TRACT SYMP (10) Macrocytic anemia Assessment/Plan: 5. Chronic Macrocytic Anemia B12/Folate wnl H/O consulted for work-up for MDS. H/H 7.4/21.6 MCV 104.3 Will monitor. Code(s): D53.9 - NUTRITIONAL ANEMIA, UNSPECIFIED (11) Dyslipidemia (high LDL; low HDL) Assessment/Plan: Continue Statin Code(s): E78.5 - HYPERLIPIDEMIA, UNSPECIFIED (12) Non-insulin dependent type 2 diabetes mellitus Assessment/Plan: DM 2 - Normally on Januvia. Will maintain on SSI during in-patient stay. Code(s): E11.9 - TYPE 2 DIABETES MELLITUS WITHOUT COMPLICATIONS DVT Px - Heparin SQ
[2018-09-25] MEDS: AMOX TR/POT CLAV 500MG/125MG TABLETS (FP) PO SCH ×2 (08:37→17:02)
[2018-09-25] MEDS: TAMSULOSIN HCL 0.4 MG CAP PO SCH (08:37)
[2018-09-25] MEDS: PANTOPRAZOLE 40 MG TABLET (FP) PO SCH (10:16)
[2018-09-25] MEDS: hydrALAZINE HCL 25 MG TABLET (FP) PO SCH ×2 (10:16→21:56)
[2018-09-25] MEDS: MAGNESIUM OXIDE 400 MG TABLET (FP) PO SCH ×2 (10:16→21:56)
[2018-09-25] MEDS: ISOSORBIDE MONONITRATE 30 MG TAB.SR.24H (FP) PO SCH (10:16)
[2018-09-25] MEDS: MULTIVITAMINS (DAILY MVI) TABLET (FP) PO SCH (10:16)
[2018-09-25] MEDS: GABAPENTIN 100 MG CAPSULE (FP) PO SCH ×2 (10:16→21:56)
[2018-09-25] MEDS: METOLAZONE 5 MG TABLET PO SCH (10:17)
[2018-09-25] MEDS: CYANOCOBALAMIN 1,000 MCG TABLET (FP) PO SCH (10:17)
[2018-09-25] MEDS: BUDESONIDE/FORMETEROL FUMARATE 160/4.5 mcg INHALER IH SCH ×2 (10:19→22:25)
--- NOTE | 2018-09-25 11:40 | PN ---
Progress Note (short form) - Note Progress Note: Chief Complaint: Events noted, notes reviewed, dyspnea improved, denies any chest pain History of Present Illness: Patient seen and examined. Events noted, notes reviewed, dyspnea improved, denies any chest pain - Current Medication List Current Medications: Active Medications Current Medications Albuterol/Ipratropium (Duoneb -) 1 amp NEB RQID [facility] Last Admin: 09/25/18 07:30 Dose: 1 amp Amoxicillin/Clavulanate Potassium (Augmentin - 500mg Tablet) 1 tab PO BID@0800, 1730 [facility] Last Admin: 09/25/18 08:37 Dose: 1 tab Atorvastatin Calcium (Lipitor -) 40 mg PO [facility] Last Admin: 09/24/18 21:38 Dose: 40 mg Budesonide/Formoterol Fumarate (Symbicort 160/4.5mcg -) 2 puff IH BID [facility] Last Admin: 09/25/18 10:19 Dose: 2 puff Cyanocobalamin (Vitamin B12 -) 1,000 mcg PO DAILY [facility] Last Admin: 09/25/18 10:17 Dose: 1,000 mcg Furosemide (Lasix Injection -) 60 mg IVPUSH BID@0600,1400 [facility] Last Admin: 09/25/18 06:39 Dose: 60 mg Gabapentin (Neurontin -) 100 mg PO BID [facility] Last Admin: 09/25/18 10:16 Dose: 100 mg Heparin Sodium (Porcine) (Heparin -) 5,000 unit SQ TID [facility] Last Admin: 09/25/18 06:40 Dose: 5,000 unit Hydralazine HCl (Apresoline -) 25 mg PO BID [facility] Last Admin: 09/25/18 10:16 Dose: 25 mg Insulin Aspart (Novolog Vial Sliding Scale -) 1 vial SQ [facility]; Protocol Last Admin: 09/25/18 06:40 Dose: Not Given Isosorbide Mononitrate (Imdur -) 30 mg PO DAILY [facility] Last Admin: 09/25/18 10:16 Dose: 30 mg Levothyroxine Sodium (Synthroid -) 25 mcg PO DAILY@0700 [facility] Last Admin: 09/25/18 06:40 Dose: 25 mcg Losartan Potassium (Cozaar -) 25 mg PO [facility] Magnesium Oxide (Mag-Ox -) 400 mg PO BID [facility] Last Admin: 09/25/18 10:16 Dose: 400 mg Metolazone (Zaroxolyn -) 5 mg PO DAILY [facility] Last Admin: 09/25/18 10:17 Dose: 5 mg Metoprolol Succinate (Toprol Xl -) 75 mg PO DAILY [facility] Last Admin: 09/25/18 10:16 Dose: 75 mg Multivitamins/Minerals/Vitamin C (Tab-A-Vit -) 1 tab PO DAILY [facility] Last Admin: 09/25/18 10:16 Dose: 1 tab Pantoprazole Sodium (Protonix -) 40 mg PO DAILY [facility] Last Admin: 09/25/18 10:16 Dose: 40 mg Tamsulosin HCl (Flomax -) 0.4 mg PO DAILY@0830 [facility] Last Admin: 09/25/18 08:37 Dose: 0.4 mg - Review of Systems Constitutional: denies: Chills, Fever Cardiovascular: As noted above Respiratory: denies: Cough or Sputum Production Gastrointestinal: denies: Nausea, Vomiting, Diarrhea, Constipation or Abdominal Pain Genitourinary: denies: Dysuria, Hematuria Neurological: denies: Dizziness - Objective Vital Signs: Last Vital Signs Temp Pulse Resp BP Pulse Ox 98 F 78 20 115/62 95 09/25/18 10:00 09/25/18 10:00 09/25/18 10:00 09/25/18 10:00 09/24/18 21:00 Intake & Output 09/22/18 09/23/18 09/24/18 09/25/18 23:59 23:59 23:59 23:59 Intake Total 1745 740 650 900 Output Total 500 2250 1600 1100 Balance 1245 -1510 -950 -200 Weight 187 lb 6.4 oz 188 lb Neck: Supple Negative JVD Cardiovascular: S1 S2 Regularly Rate and Rhythm Respiratory: Diminished Breath Sounds Bilaterally Bases Gastrointestinal: Soft Benign Normal Bowel Sounds Ext: Trace Edema RLE Labs: (lab was contacted; there is a system error which explains AM lab delay) Assessment/Plan ASSESSMENT: 1. Acute exacerbation of moderate to severe COPD, resolving 2. Acute on chronic class II NYHA classification LV diastolic/systolic failure, resolving 3. CAD angina pectoris 4. HTN 5. DM 6. Hypercholesterolemia 7. Hypothyroidism 8. CKD 9. Abnormal LFT from hepatic congestion 10. Anemia post transfusion etiology to be determined 11. Left BKA PLAN: 1. Continue Xaroxolyn and IV Lasix with caution and monitor renal function and electrolytes 2. Continue Toprol XL 3. Continue Cozaar 4. Continue Hydralazine 5. Continue ASA 6. Continue Lipitor 7. Continue bronchodilators and inhaled steroids Clifton Summers M.D.
--- NOTE | 2018-09-25 12:19 | PN ---
Progress Note (short form) - Note Progress Note: Overall feels better. No acute events overnight. Intake & Output 09/22/18 09/23/18 09/24/18 09/25/18 23:59 23:59 23:59 23:59 Intake Total 1745 740 650 900 Output Total 500 2250 1600 1500 Balance 1245 -1510 -950 -600 Weight 187 lb 6.4 oz 188 lb Last Vital Signs Temp Pulse Resp BP Pulse Ox 98 F 78 20 115/62 95 09/25/18 10:00 09/25/18 10:00 09/25/18 10:00 09/25/18 10:00 09/24/18 21:00 Active Medications Albuterol/Ipratropium (Duoneb -) 1 amp NEB RQID [facility] Last Admin: 09/25/18 07:30 Dose: 1 amp Amoxicillin/Clavulanate Potassium (Augmentin - 500mg Tablet) 1 tab PO BID@0800, 1730 [facility] Last Admin: 09/25/18 08:37 Dose: 1 tab Atorvastatin Calcium (Lipitor -) 40 mg PO HS [facility] Last Admin: 09/24/18 21:38 Dose: 40 mg Budesonide/Formoterol Fumarate (Symbicort 160/4.5mcg -) 2 puff IH BID [facility] Last Admin: 09/25/18 10:19 Dose: 2 puff Cyanocobalamin (Vitamin B12 -) 1,000 mcg PO DAILY [facility] Last Admin: 09/25/18 10:17 Dose: 1,000 mcg Furosemide (Lasix Injection -) 60 mg IVPUSH BID@0600,1400 [facility] Last Admin: 09/25/18 06:39 Dose: 60 mg Gabapentin (Neurontin -) 100 mg PO BID [facility] Last Admin: 09/25/18 10:16 Dose: 100 mg Heparin Sodium (Porcine) (Heparin -) 5,000 unit SQ TID [facility] Last Admin: 09/25/18 06:40 Dose: 5,000 unit Hydralazine HCl (Apresoline -) 25 mg PO BID [facility] Last Admin: 09/25/18 10:16 Dose: 25 mg Insulin Aspart (Novolog Vial Sliding Scale -) 1 vial SQ [facility]; Protocol Last Admin: 09/25/18 12:12 Dose: 4 units Isosorbide Mononitrate (Imdur -) 30 mg PO DAILY [facility] Last Admin: 09/25/18 10:16 Dose: 30 mg Levothyroxine Sodium (Synthroid -) 25 mcg PO DAILY@0700 [facility] Last Admin: 09/25/18 06:40 Dose: 25 mcg Losartan Potassium (Cozaar -) 25 mg PO HS [facility] Magnesium Oxide (Mag-Ox -) 400 mg PO BID [facility] Last Admin: 09/25/18 10:16 Dose: 400 mg Metolazone (Zaroxolyn -) 5 mg PO DAILY [facility] Last Admin: 09/25/18 10:17 Dose: 5 mg Metoprolol Succinate (Toprol Xl -) 75 mg PO DAILY [facility] Last Admin: 09/25/18 10:16 Dose: 75 mg Multivitamins/Minerals/Vitamin C (Tab-A-Vit -) 1 tab PO DAILY [facility] Last Admin: 09/25/18 10:16 Dose: 1 tab Pantoprazole Sodium (Protonix -) 40 mg PO DAILY [facility] Last Admin: 09/25/18 10:16 Dose: 40 mg Tamsulosin HCl (Flomax -) 0.4 mg PO DAILY@0830 [facility] Last Admin: 09/25/18 08:37 Dose: 0.4 mg Constitutional: Yes: NAD Eyes: Yes: WNL HENT: Yes: WNL Neck: Yes: WNL Cardiovascular: Yes: Regular Rate and Rhythm, S1, S2 Respiratory: Yes: Few scattered rhonchi Gastrointestinal: Yes: Normal Bowel Sounds, Soft Extremities: Yes: Amputation (left bka) Edema: Yes Labs: Laboratory Results - last 24 hr 09/22/18 09/24/18 09/24/18 14:20 18:00 21:34 Haptoglobin 212 H POC Glucometer 208 214 09/25/18 09/25/18 06:27 11:46 Haptoglobin POC Glucometer 148 223 Problem List - Problems (1) BPH (benign prostatic hyperplasia) Code(s): N40.0 - BENIGN PROSTATIC HYPERPLASIA WITHOUT LOWER URINRY TRACT SYMP (2) COPD exacerbation Code(s): J44.1 - CHRONIC OBSTRUCTIVE PULMONARY DISEASE W (ACUTE) EXACERBATION (3) Dyslipidemia (high LDL; low HDL) Code(s): E78.5 - HYPERLIPIDEMIA, UNSPECIFIED (4) HTN (hypertension) Code(s): I10 - ESSENTIAL (PRIMARY) HYPERTENSION (5) Heart failure Code(s): I50.9 - HEART FAILURE, UNSPECIFIED Qualifiers: Heart failure type: combined systolic and diastolic Heart failure chronicity: acute on chronic Qualified Code(s): I50.43 - Acute on chronic combined systolic (congestive) and diastolic (congestive) heart failure (6) Nephrotic range proteinuria Code(s): R80.9 - PROTEINURIA, UNSPECIFIED (7) Non-insulin dependent type 2 diabetes mellitus Code(s): E11.9 - TYPE 2 DIABETES MELLITUS WITHOUT COMPLICATIONS (8) Shortness of breath Code(s): R06.02 - SHORTNESS OF BREATH (9) CKD (chronic kidney disease) Code(s): N18.9 - CHRONIC KIDNEY DISEASE, UNSPECIFIED Qualifiers: Chronic kidney disease stage: stage 3 (moderate) Qualified Code(s): N18.3 - Chronic kidney disease, stage 3 (moderate) (10) Anemia Code(s): D64.9 - ANEMIA, UNSPECIFIED Qualifiers: Anemia type: other cause Other causes of anemia: other cause, not classified Qualified Code(s): D64.89 - Other specified anemias (11) Cardiomyopathy as manifestation of underlying disease Code(s): I43 - CARDIOMYOPATHY IN DISEASES CLASSIFIED ELSEWHERE (12) Diastolic dysfunction Code(s): I51.9 - HEART DISEASE, UNSPECIFIED Assessment/Plan AE mod-severe copd improving Active smoker Acute on chronic diastolic/systolic failure Anemia CKD with proteinuria - nephrotic and h/o hyperkalemia HTN Type 2 DM hypothyroidism HLD 9 mm RUL pulm nodule, 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 BKA Macrocytic anemia ?mds O2 as ordered BD TX Symbicort to 2 inhalations BID Lasix No need for systemic steroids at this time smoking cessation encourage use of [address] Zarco
[2018-09-25 12:33] LABS: ALBUMIN 2.4 g/dl (3.4-5.0); ALK PHOS 64 U/L (45-117); ANION GAP 6 MMOL/L (8-16); BILIRUBIN,TOTAL 0.5 mg/dL (0.2-1); BLOOD UREA NITROGEN 76 mg/dL (7-18); CALCIUM 8.3 mg/dL (8.5-10.1); CHLORIDE 95 mmol/L (98-107); CO2 38 mmol/L (21-32); CREATININE 2.4 mg/dL (0.55-1.3); GLUCOSE,RANDOM 119 mg/dL (74-106); MAGNESIUM 1.7 mg/dL (1.8-2.4); PHOSPHOROUS 3.6 mg/dL (2.5-4.9); POTASSIUM 4.2 mmol/L (3.5-5.1); SGOT/AST 18 U/L (15-37); SGPT/ALT 32 U/L (13-61); SODIUM 138 mmol/L (136-145); TOT PROT 5.7 g/dl (6.4-8.2)
[2018-09-25 14:04] LABS: BASO % 0.7 % (0-2.0); EOS % 1.3 % (0-4.5); HEMATOCRIT 25.3 % (35.4-49); HEMOGLOBIN 8.3 GM/dL (11.7-16.9); MCH 33.1 pg (25.7-33.7); MCHC 32.9 g/dl (32.0-35.9); MEAN CELL VOLUME 100.7 fl (80-96); MEAN PLT VOLUME 10.3 fl (7.5-11.1); MONO % 26.9 % (3.8-10.2); NEUT % 49.1 % (42.8-82.8); PLATELET COUNT 216 K/MM3 (134-434); RBC 2.52 M/mm3 (4.00-5.60); RDW 20.9 % (11.9-15.9); WHITE BLOOD COUNT 3.7 K/mm3 (4.0-10.0)
--- NOTE | 2018-09-25 16:40 | PN ---
Progress Note, Physician History of Present Illness: Pt states he feels better. Denies SOB. Has minimal cough with deep inspiration. - Current Medication List Current Medications: Active Medications Albuterol/Ipratropium (Duoneb -) 1 amp NEB RQID [facility] Last Admin: 09/25/18 12:18 Dose: 1 amp Amoxicillin/Clavulanate Potassium (Augmentin - 500mg Tablet) 1 tab PO BID@0800, 1730 [facility] Last Admin: 09/25/18 08:37 Dose: 1 tab Atorvastatin Calcium (Lipitor -) 40 mg PO [facility] Last Admin: 09/24/18 21:38 Dose: 40 mg Budesonide/Formoterol Fumarate (Symbicort 160/4.5mcg -) 2 puff IH BID [facility] Last Admin: 09/25/18 10:19 Dose: 2 puff Cyanocobalamin (Vitamin B12 -) 1,000 mcg PO DAILY [facility] Last Admin: 09/25/18 10:17 Dose: 1,000 mcg Furosemide (Lasix Injection -) 60 mg IVPUSH BID@0600,1400 [facility] Last Admin: 09/25/18 14:14 Dose: 60 mg Gabapentin (Neurontin -) 100 mg PO BID [facility] Last Admin: 09/25/18 10:16 Dose: 100 mg Heparin Sodium (Porcine) (Heparin -) 5,000 unit SQ TID [facility] Last Admin: 09/25/18 14:14 Dose: 5,000 unit Hydralazine HCl (Apresoline -) 25 mg PO BID [facility] Last Admin: 09/25/18 10:16 Dose: 25 mg Insulin Aspart (Novolog Vial Sliding Scale -) 1 vial SQ [facility]; Protocol Last Admin: 09/25/18 12:12 Dose: 4 units Isosorbide Mononitrate (Imdur -) 30 mg PO DAILY [facility] Last Admin: 09/25/18 10:16 Dose: 30 mg Levothyroxine Sodium (Synthroid -) 25 mcg PO DAILY@0700 [facility] Last Admin: 09/25/18 06:40 Dose: 25 mcg Losartan Potassium (Cozaar -) 25 mg PO [facility] Magnesium Oxide (Mag-Ox -) 400 mg PO BID [facility] Last Admin: 09/25/18 10:16 Dose: 400 mg Metolazone (Zaroxolyn -) 5 mg PO DAILY [facility] Last Admin: 09/25/18 10:17 Dose: 5 mg Metoprolol Succinate (Toprol Xl -) 75 mg PO DAILY [facility] Last Admin: 09/25/18 10:16 Dose: 75 mg Multivitamins/Minerals/Vitamin C (Tab-A-Vit -) 1 tab PO DAILY [facility] Last Admin: 09/25/18 10:16 Dose: 1 tab Pantoprazole Sodium (Protonix -) 40 mg PO DAILY [facility] Last Admin: 09/25/18 10:16 Dose: 40 mg Tamsulosin HCl (Flomax -) 0.4 mg PO DAILY@0830 [facility] Last Admin: 09/25/18 08:37 Dose: 0.4 mg - Objective Vital Signs: Vital Signs Temperature 98.4 F 09/25/18 14:00 Pulse Rate 71 09/25/18 14:00 Respiratory Rate 20 09/25/18 14:00 Blood Pressure 111/50 L 09/25/18 14:00 O2 Sat by Pulse Oximetry (%) 96 09/25/18 09:00 Constitutional: Yes: No Distress, Calm Cardiovascular: Yes: Regular Rate and Rhythm Respiratory: Yes: Rhonchi (scattered) Gastrointestinal: Yes: Normal Bowel Sounds, Soft Labs: CBC, BMP 09/25/18 06:35 09/25/18 06:35 INR, PTT INR 1.16 (0.83-1.09) H 09/14/18 05:30 Fibrinogen 443.0 mg/dL (238-498) 09/22/18 14:20 Problem List - Problems (1) COPD exacerbation Code(s): J44.1 - CHRONIC OBSTRUCTIVE PULMONARY DISEASE W (ACUTE) EXACERBATION (2) Dyslipidemia (high LDL; low HDL) Code(s): E78.5 - HYPERLIPIDEMIA, UNSPECIFIED (3) HTN (hypertension) Code(s): I10 - ESSENTIAL (PRIMARY) HYPERTENSION Qualifiers: Hypertension type: essential hypertension Qualified Code(s): I10 - Essential (primary) hypertension (4) Heart failure Code(s): I50.9 - HEART FAILURE, UNSPECIFIED Qualifiers: Heart failure type: combined systolic and diastolic Heart failure chronicity: acute on chronic Qualified Code(s): I50.43 - Acute on chronic combined systolic (congestive) and diastolic (congestive) heart failure (5) Klebsiella pneumonia Code(s): J15.0 - PNEUMONIA DUE TO KLEBSIELLA PNEUMONIAE (6) Non-insulin dependent type 2 diabetes mellitus Code(s): E11.9 - TYPE 2 DIABETES MELLITUS WITHOUT COMPLICATIONS (7) CKD (chronic kidney disease) Code(s): N18.9 - CHRONIC KIDNEY DISEASE, UNSPECIFIED Qualifiers: Chronic kidney disease stage: stage 3 (moderate) Qualified Code(s): N18.3 - Chronic kidney disease, stage 3 (moderate) (8) Anemia Code(s): D64.9 - ANEMIA, UNSPECIFIED Qualifiers: Anemia type: other cause Other causes of anemia: other cause, not classified Qualified Code(s): D64.89 - Other specified anemias Assessment/Plan Acute COPD Exacerbation CHF CAD CKD DM Pulmonary nodule -- d/c antibiotics after todays doses -- pt with less SOB, afebrile
[2018-09-25 17:49] LABS: ANISOCYTOSIS 2+; MACROCYTOSIS 1+; PLATELET ESTIMATE NORMAL; TEAR DROP CELLS 1+
--- NOTE | 2018-09-25 21:53 | PN ---
Progress Note (short form) - Note Progress Note: Problems 1. CKD 2. anemia 3. history of hyperkalemia 4. HTN 5. DM 6. hypothyroidism 7. HLD 8. copd 9. proteinuria - nephrotic 10. active smoker 11. fluid overload Current Medications Albuterol/Ipratropium (Duoneb -) 1 amp NEB RQID [facility] Last Admin: 09/25/18 19:46 Dose: 1 amp Amoxicillin/Clavulanate Potassium (Augmentin - 500mg Tablet) 1 tab PO BID@0800, 1730 [facility] Last Admin: 09/25/18 17:02 Dose: 1 tab Atorvastatin Calcium (Lipitor -) 40 mg PO HS [facility] Last Admin: 09/24/18 21:38 Dose: 40 mg Budesonide/Formoterol Fumarate (Symbicort 160/4.5mcg -) 2 puff IH BID [facility] Last Admin: 09/25/18 10:19 Dose: 2 puff Cyanocobalamin (Vitamin B12 -) 1,000 mcg PO DAILY [facility] Last Admin: 09/25/18 10:17 Dose: 1,000 mcg Furosemide (Lasix Injection -) 60 mg IVPUSH BID@0600,1400 [facility] Last Admin: 09/25/18 14:14 Dose: 60 mg Gabapentin (Neurontin -) 100 mg PO BID [facility] Last Admin: 09/25/18 10:16 Dose: 100 mg Heparin Sodium (Porcine) (Heparin -) 5,000 unit SQ TID [facility] Last Admin: 09/25/18 14:14 Dose: 5,000 unit Hydralazine HCl (Apresoline -) 25 mg PO BID [facility] Last Admin: 09/25/18 10:16 Dose: 25 mg Insulin Aspart (Novolog Vial Sliding Scale -) 1 vial SQ ACHS [facility]; Protocol Last Admin: 09/25/18 17:04 Dose: 2 units Isosorbide Mononitrate (Imdur -) 30 mg PO DAILY [facility] Last Admin: 09/25/18 10:16 Dose: 30 mg Levothyroxine Sodium (Synthroid -) 25 mcg PO DAILY@0700 [facility] Last Admin: 09/25/18 06:40 Dose: 25 mcg Losartan Potassium (Cozaar -) 25 mg PO [facility] Magnesium Oxide (Mag-Ox -) 400 mg PO BID [facility] Last Admin: 09/25/18 10:16 Dose: 400 mg Metolazone (Zaroxolyn -) 5 mg PO DAILY [facility] Last Admin: 09/25/18 10:17 Dose: 5 mg Metoprolol Succinate (Toprol Xl -) 75 mg PO DAILY [facility] Last Admin: 09/25/18 10:16 Dose: 75 mg Multivitamins/Minerals/Vitamin C (Tab-A-Vit -) 1 tab PO DAILY [facility] Last Admin: 09/25/18 10:16 Dose: 1 tab Pantoprazole Sodium (Protonix -) 40 mg PO DAILY [facility] Last Admin: 09/25/18 10:16 Dose: 40 mg Tamsulosin HCl (Flomax -) 0.4 mg PO DAILY@0830 [facility] Last Admin: 09/25/18 08:37 Dose: 0.4 mg Last Vital Signs Temp Pulse Resp BP Pulse Ox 97.6 F 68 19 111/61 96 09/25/18 18:00 09/25/18 18:00 09/25/18 18:00 09/25/18 18:00 09/25/18 09:00 Lungs rhonchi Heart reg Abd soft Ext rle edema L bka CBC, BMP 09/25/18 06:35 09/25/18 06:35 Plan- monitor serum chems
[2018-09-25] MEDS: LOSARTAN POTASSIUM 25 MG TABLET PO SCH (21:56)
[2018-09-25] MEDS: ATORVASTATIN CA 40 MG TABLET (FP) PO SCH (21:56)
[2018-09-26] MEDS: FUROSEMIDE 40 MG/4 ML INJECTABLE VIAL IVPUSH SCH ×2 (07:33→15:23)
[2018-09-26 07:34] LABS: ALBUMIN 2.5 g/dl (3.4-5.0); ALK PHOS 66 U/L (45-117); ANION GAP 6 MMOL/L (8-16); BILIRUBIN,TOTAL 0.5 mg/dL (0.2-1); BLOOD UREA NITROGEN 76 mg/dL (7-18); CALCIUM 8.4 mg/dL (8.5-10.1); CHLORIDE 93 mmol/L (98-107); CO2 40 mmol/L (21-32); CREATININE 2.6 mg/dL (0.55-1.3); GLUCOSE,RANDOM 151 mg/dL (74-106); POTASSIUM 3.8 mmol/L (3.5-5.1); SGOT/AST 33 U/L (15-37); SGPT/ALT 41 U/L (13-61); SODIUM 139 mmol/L (136-145); TOT PROT 5.9 g/dl (6.4-8.2)
[2018-09-26] MEDS: LEVOTHYROXINE NA 25 MCG TABLET (FP) PO SCH (07:34)
[2018-09-26] MEDS: INSULIN SLIDING SCALE (NOVOLOG) 1 VIAL SQ SCH ×4 (07:34→21:40)
[2018-09-26] MEDS: HEPARIN NA (PORCINE) 5,000 UNITS/ML 1ML VIAL SQ SCH ×2 (07:36→15:23)
[2018-09-26] MEDS: ALBUTEROL SO4 2.5/IPRATROPIUM 0.5 INH SOL 3 ML VIAL.NEB. NEB SCH ×4 (07:55→20:23)
[2018-09-26] MEDS: TAMSULOSIN HCL 0.4 MG CAP PO SCH (08:36)
[2018-09-26 09:26] LABS: BASO % 0.4 % (0-2.0); EOS % 1.6 % (0-4.5); HEMATOCRIT 23.9 % (35.4-49); HEMOGLOBIN 8.5 GM/dL (11.7-16.9); LYMPH % 21.9 % (8-40); MCH 35.4 pg (25.7-33.7); MCHC 35.7 g/dl (32.0-35.9); MEAN CELL VOLUME 99.2 fl (80-96); MEAN PLT VOLUME 10.2 fl (7.5-11.1); MONO % 25.6 % (3.8-10.2); NEUT % 50.5 % (42.8-82.8); PLATELET COUNT 230 K/MM3 (134-434); RBC 2.41 M/mm3 (4.00-5.60); RDW 20.1 % (11.9-15.9); WHITE BLOOD COUNT 3.5 K/mm3 (4.0-10.0)
[2018-09-26] MEDS: MULTIVITAMINS (DAILY MVI) TABLET (FP) PO SCH (10:36)
[2018-09-26] MEDS: ISOSORBIDE MONONITRATE 30 MG TAB.SR.24H (FP) PO SCH (10:36)
[2018-09-26] MEDS: PANTOPRAZOLE 40 MG TABLET (FP) PO SCH (10:36)
[2018-09-26] MEDS: MAGNESIUM OXIDE 400 MG TABLET (FP) PO SCH ×2 (10:36→21:40)
[2018-09-26] MEDS: hydrALAZINE HCL 25 MG TABLET (FP) PO SCH ×2 (10:36→21:39)
[2018-09-26] MEDS: GABAPENTIN 100 MG CAPSULE (FP) PO SCH ×2 (10:36→21:40)
[2018-09-26] MEDS: AMOX TR/POT CLAV 500MG/125MG TABLETS (FP) PO SCH ×2 (10:37→17:03)
[2018-09-26] MEDS: BUDESONIDE/FORMETEROL FUMARATE 160/4.5 mcg INHALER IH SCH ×2 (10:37→21:40)
[2018-09-26] MEDS: CYANOCOBALAMIN 1,000 MCG TABLET (FP) PO SCH (10:38)
[2018-09-26] MEDS: METOLAZONE 5 MG TABLET PO SCH (10:38)
--- NOTE | 2018-09-26 11:50 | PN ---
Progress Note, Physician History of Present Illness: SOB and RLE swelling improved after uptitration of diuretics. He sees Tello Manzano MD for cardiology [phone] - Current Medication List Current Medications: Active Medications Albuterol/Ipratropium (Duoneb -) 1 amp NEB RQID [facility] Last Admin: 09/26/18 11:33 Dose: 1 amp Amoxicillin/Clavulanate Potassium (Augmentin - 500mg Tablet) 1 tab PO BID@0800, 1730 [facility] Last Admin: 09/26/18 10:37 Dose: 1 tab Atorvastatin Calcium (Lipitor -) 40 mg PO [facility] Last Admin: 09/25/18 21:56 Dose: 40 mg Budesonide/Formoterol Fumarate (Symbicort 160/4.5mcg -) 2 puff IH BID [facility] Last Admin: 09/26/18 10:37 Dose: 2 puff Cyanocobalamin (Vitamin B12 -) 1,000 mcg PO DAILY [facility] Last Admin: 09/26/18 10:38 Dose: 1,000 mcg Furosemide (Lasix Injection -) 60 mg IVPUSH BID@0600,1400 [facility] Last Admin: 09/26/18 07:33 Dose: 60 mg Gabapentin (Neurontin -) 100 mg PO BID [facility] Last Admin: 09/26/18 10:36 Dose: 100 mg Heparin Sodium (Porcine) (Heparin -) 5,000 unit SQ TID [facility] Last Admin: 09/26/18 07:36 Dose: 5,000 unit Hydralazine HCl (Apresoline -) 25 mg PO BID [facility] Last Admin: 09/26/18 10:36 Dose: 25 mg Insulin Aspart (Novolog Vial Sliding Scale -) [address] [facility]; Protocol Last Admin: 09/26/18 07:34 Dose: 2 units Isosorbide Mononitrate (Imdur -) 30 mg PO DAILY [facility] Last Admin: 09/26/18 10:36 Dose: 30 mg Levothyroxine Sodium (Synthroid -) 25 mcg PO DAILY@0700 [facility] Last Admin: 09/26/18 07:34 Dose: 25 mcg Losartan Potassium (Cozaar -) 25 mg PO HS [facility] Last Admin: 09/25/18 21:56 Dose: 25 mg Magnesium Oxide (Mag-Ox -) 400 mg PO BID [facility] Last Admin: 09/26/18 10:36 Dose: 400 mg Metolazone (Zaroxolyn -) 5 mg PO DAILY [facility] Last Admin: 09/26/18 10:38 Dose: 5 mg Metoprolol Succinate (Toprol Xl -) 75 mg PO DAILY [facility] Last Admin: 09/26/18 10:36 Dose: 75 mg Multivitamins/Minerals/Vitamin C (Tab-A-Vit -) 1 tab PO DAILY [facility] Last Admin: 09/26/18 10:36 Dose: 1 tab Pantoprazole Sodium (Protonix -) 40 mg PO DAILY [facility] Last Admin: 09/26/18 10:36 Dose: 40 mg Tamsulosin HCl (Flomax -) 0.4 mg PO DAILY@0830 [facility] Last Admin: 09/26/18 08:36 Dose: 0.4 mg - Objective Vital Signs: Vital Signs Temperature 98.3 F 09/26/18 06:00 Pulse Rate 67 09/26/18 06:00 Respiratory Rate 20 09/26/18 06:00 Blood Pressure 106/62 09/26/18 06:00 O2 Sat by Pulse Oximetry (%) 96 09/25/18 21:00 Constitutional: Yes: No Distress, Calm Neck: Yes: Supple Cardiovascular: Yes: Regular Rate and Rhythm, Murmur (2/6 SM) Respiratory: Yes: Regular, Diminished Gastrointestinal: Yes: Normal Bowel Sounds, Soft Extremities: Yes: Amputation (Left BKA) Edema: No Labs: CBC, BMP 09/26/18 06:00 09/26/18 06:00 INR, PTT INR 1.16 (0.83-1.09) H 09/14/18 05:30 Fibrinogen 443.0 mg/dL (238-498) 09/22/18 14:20 Problem List - Problems (1) Nephrotic range proteinuria Code(s): R80.9 - PROTEINURIA, UNSPECIFIED (2) Heart failure Code(s): I50.9 - HEART FAILURE, UNSPECIFIED Qualifiers: Heart failure type: combined systolic and diastolic Heart failure chronicity: acute on chronic Qualified Code(s): I50.43 - Acute on chronic combined systolic (congestive) and diastolic (congestive) heart failure (3) CKD (chronic kidney disease) Code(s): N18.9 - CHRONIC KIDNEY DISEASE, UNSPECIFIED Qualifiers: Chronic kidney disease stage: stage 3 (moderate) Qualified Code(s): N18.3 - Chronic kidney disease, stage 3 (moderate) (4) Cardiomyopathy as manifestation of underlying disease Code(s): I43 - CARDIOMYOPATHY IN DISEASES CLASSIFIED ELSEWHERE (5) Hypothyroid Code(s): E03.9 - HYPOTHYROIDISM, UNSPECIFIED Qualifiers: Hypothyroidism type: unspecified Qualified Code(s): E03.9 - Hypothyroidism , unspecified (6) COPD exacerbation Code(s): J44.1 - CHRONIC OBSTRUCTIVE PULMONARY DISEASE W (ACUTE) EXACERBATION Assessment/Plan Echocardiogram 05/30/2018 showed normal LV size, wall motion and systolic function. Normal RV. Borderline LA dilatation. Moderate with SADAF = 0.93cm2, PG = 33.3 mmHg, MG = 21.3 mmHg. Mild to moderate MR. No pericardial effusion. Echocardiogram 07/14/18 shows LV moderately dilated. LV systolic fx is mildly reduced. mild global hypokinesis of the LV. RV is normal in size and fx. moderate mitral regurg. mild to mod valvular aortic stenosis. EF-45-50%. Echocardiogram 09/12/2018: Dilated LV with moderate decreased LV fxn, mod- severe MR, normal RV size and fxn, mild pulm HTN RVSP 40 mmHg, ascites, mod AV sclerosis Chest CT 09/04/2018 Bilateral effusions with compressive ATX 1. Acute exacerbation of moderate to severe COPD, resolving 2. Acute on chronic class II NYHA classification LV diastolic/systolic failure, resolving 3. CAD angina pectoris 4. HTN 5. DM 6. Hypercholesterolemia 7. Hypothyroidism 8. CKD 9. Abnormal LFT from hepatic congestion 10. Anemia post transfusion etiology to be determined 11. Left BKA PLAN: 1. D/c Zaroxolyn 5 qd and decrease Lasix 40 IV qd with caution and monitor renal function and electrolytes 2. Continue Toprol XL 75 qd 3. Continue Cozaar 25 qhs 4. Continue Hydralazine 25 bid and Imdur 30 qd 5. Continue ASA 6. Continue Lipitor 40 qhs 7. Continue bronchodilators, inhaled steroids, abx course
--- NOTE | 2018-09-26 12:44 | PN ---
Progress Note (short form) - Note Progress Note: Overall feels better. No acute events overnight. Intake & Output 09/23/18 09/24/18 09/25/18 09/26/18 23:59 23:59 23:59 23:59 Intake Total 464 918 8229 450 Output Total 2250 1600 2400 1170 Balance -1510 -950 -1260 -720 Weight 188 lb 172 lb 2 oz Last Vital Signs Temp Pulse Resp BP Pulse Ox 98.3 F 67 20 106/62 96 09/26/18 06:00 09/26/18 06:00 09/26/18 06:00 09/26/18 06:00 09/25/18 21:00 Active Medications Albuterol/Ipratropium (Duoneb -) 1 amp NEB RQID [facility] Last Admin: 09/26/18 11:33 Dose: 1 amp Amoxicillin/Clavulanate Potassium (Augmentin - 500mg Tablet) 1 tab PO BID@0800, 1730 [facility] Last Admin: 09/26/18 10:37 Dose: 1 tab Atorvastatin Calcium (Lipitor -) 40 mg PO HS [facility] Last Admin: 09/25/18 21:56 Dose: 40 mg Budesonide/Formoterol Fumarate (Symbicort 160/4.5mcg -) 2 puff IH BID [facility] Last Admin: 09/26/18 10:37 Dose: 2 puff Cyanocobalamin (Vitamin B12 -) 1,000 mcg PO DAILY [facility] Last Admin: 09/26/18 10:38 Dose: 1,000 mcg Furosemide (Lasix Injection -) 60 mg IVPUSH BID@0600,1400 [facility] Stop: 09/27/18 06:00 Last Admin: 09/26/18 07:33 Dose: 60 mg Furosemide (Lasix Injection -) 40 mg IVPUSH DAILY [facility] Gabapentin (Neurontin -) 100 mg PO BID [facility] Last Admin: 09/26/18 10:36 Dose: 100 mg Heparin Sodium (Porcine) (Heparin -) 5,000 unit SQ TID [facility] Last Admin: 09/26/18 07:36 Dose: 5,000 unit Hydralazine HCl (Apresoline -) 25 mg PO BID [facility] Last Admin: 09/26/18 10:36 Dose: 25 mg Insulin Aspart (Novolog Vial Sliding Scale -) 1 vial SQ ACHS [facility]; Protocol Last Admin: 09/26/18 07:34 Dose: 2 units Isosorbide Mononitrate (Imdur -) 30 mg PO DAILY [facility] Last Admin: 09/26/18 10:36 Dose: 30 mg Levothyroxine Sodium (Synthroid -) 25 mcg PO DAILY@0700 [facility] Last Admin: 09/26/18 07:34 Dose: 25 mcg Losartan Potassium (Cozaar -) 25 mg PO HS [facility] Last Admin: 09/25/18 21:56 Dose: 25 mg Magnesium Oxide (Mag-Ox -) 400 mg PO BID [facility] Last Admin: 09/26/18 10:36 Dose: 400 mg Metoprolol Succinate (Toprol Xl -) 75 mg PO DAILY [facility] Last Admin: 09/26/18 10:36 Dose: 75 mg Multivitamins/Minerals/Vitamin C (Tab-A-Vit -) 1 tab PO DAILY [facility] Last Admin: 09/26/18 10:36 Dose: 1 tab Pantoprazole Sodium (Protonix -) 40 mg PO DAILY [facility] Last Admin: 09/26/18 10:36 Dose: 40 mg Tamsulosin HCl (Flomax -) 0.4 mg PO DAILY@0830 [facility] Last Admin: 09/26/18 08:36 Dose: 0.4 mg Constitutional: Yes: NAD Eyes: Yes: WNL HENT: Yes: WNL Neck: Yes: WNL Cardiovascular: Yes: Regular Rate and Rhythm, S1, S2 Respiratory: Yes: Few scattered rhonchi Gastrointestinal: Yes: Normal Bowel Sounds, Soft Extremities: Yes: Amputation (left bka) Edema: Yes Labs: Laboratory Results - last 24 hr 09/25/18 09/25/18 09/25/18 06:35 17:03 21:50 WBC 3.7 L RBC 2.52 L Hgb 8.3 L Hct 25.3 L MCV 100.7 H MCH 33.1 MCHC 32.9 RDW 20.9 H Plt Count 216 MPV 10.3 Absolute Neuts (auto) 1.8 Neutrophils % 49.1 Neutrophils % (Manual) 51.5 Band Neutrophils % 0.0 Lymphocytes % 22.0 D Lymphocytes % (Manual) 25.3 D Monocytes % 26.9 H Monocytes % (Manual) 20 H Eosinophils % 1.3 D Eosinophils % (Manual) 2.0 D Basophils % 0.7 Basophils % (Manual) 1.0 D Myelocytes % (Man) 0 Promyelocytes % (Man) 0 Blast Cells % (Manual) 0 Nucleated RBC % 0 Metamyelocytes 0 Hypochromia 1+ Platelet Estimate Normal Platelet Comment Present Polychromasia 0 Poikilocytosis 0 Basophilic Stippling 1+ Anisocytosis 2+ Microcytosis 0 Macrocytosis 1+ Tear Drop Cells 1+ Fragmented RBCs 1+ Sodium Potassium Chloride Carbon Dioxide Anion Gap BUN Creatinine Creat Clearance w eGFR POC Glucometer 155 156 Random Glucose Calcium Total Bilirubin AST ALT Alkaline Phosphatase Total Protein Albumin 09/26/18 09/26/18 09/26/18 06:00 06:00 07:02 WBC 3.5 L RBC 2.41 L Hgb 8.5 L Hct 23.9 L MCV 99.2 H MCH 35.4 H MCHC 35.7 RDW 20.1 H Plt Count 230 MPV 10.2 Absolute Neuts (auto) 1.8 Neutrophils % 50.5 Neutrophils % (Manual) Band Neutrophils % Lymphocytes % 21.9 Lymphocytes % (Manual) Monocytes % 25.6 H Monocytes % (Manual) Eosinophils % 1.6 Eosinophils % (Manual) Basophils % 0.4 Basophils % (Manual) Myelocytes % (Man) Promyelocytes % (Man) Blast Cells % (Manual) Nucleated RBC % 0 Metamyelocytes Hypochromia Platelet Estimate Platelet Comment Polychromasia Poikilocytosis Basophilic Stippling Anisocytosis Microcytosis Macrocytosis Tear Drop Cells Fragmented RBCs Sodium 139 Potassium 3.8 Chloride 93 L Carbon Dioxide 40 H Anion Gap 6 L BUN 76 H Creatinine 2.6 H Creat Clearance w eGFR 24.74 POC Glucometer 161 Random Glucose 151 H Calcium 8.4 L Total Bilirubin 0.5 AST 33 ALT 41 Alkaline Phosphatase 66 Total Protein 5.9 L Albumin 2.5 L Problem List - Problems (1) BPH (benign prostatic hyperplasia) Code(s): N40.0 - BENIGN PROSTATIC HYPERPLASIA WITHOUT LOWER URINRY TRACT SYMP (2) COPD exacerbation Code(s): J44.1 - CHRONIC OBSTRUCTIVE PULMONARY DISEASE W (ACUTE) EXACERBATION (3) Dyslipidemia (high LDL; low HDL) Code(s): E78.5 - HYPERLIPIDEMIA, UNSPECIFIED (4) HTN (hypertension) Code(s): I10 - ESSENTIAL (PRIMARY) HYPERTENSION (5) Heart failure Code(s): I50.9 - HEART FAILURE, UNSPECIFIED Qualifiers: Heart failure type: combined systolic and diastolic Heart failure chronicity: acute on chronic Qualified Code(s): I50.43 - Acute on chronic combined systolic (congestive) and diastolic (congestive) heart failure (6) Nephrotic range proteinuria Code(s): R80.9 - PROTEINURIA, UNSPECIFIED (7) Non-insulin dependent type 2 diabetes mellitus Code(s): E11.9 - TYPE 2 DIABETES MELLITUS WITHOUT COMPLICATIONS (8) Shortness of breath Code(s): R06.02 - SHORTNESS OF BREATH (9) CKD (chronic kidney disease) Code(s): N18.9 - CHRONIC KIDNEY DISEASE, UNSPECIFIED Qualifiers: Chronic kidney disease stage: stage 3 (moderate) Qualified Code(s): N18.3 - Chronic kidney disease, stage 3 (moderate) (10) Anemia Code(s): D64.9 - ANEMIA, UNSPECIFIED Qualifiers: Anemia type: other cause Other causes of anemia: other cause, not classified Qualified Code(s): D64.89 - Other specified anemias (11) Cardiomyopathy as manifestation of underlying disease Code(s): I43 - CARDIOMYOPATHY IN DISEASES CLASSIFIED ELSEWHERE (12) Diastolic dysfunction Code(s): I51.9 - HEART DISEASE, UNSPECIFIED Assessment/Plan AE mod-severe copd improving Active smoker Acute on chronic diastolic/systolic failure Anemia CKD with proteinuria - nephrotic and h/o hyperkalemia HTN Type 2 DM hypothyroidism HLD 9 mm RUL pulm nodule, 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 BKA Macrocytic anemia ?mds O2 as ordered BD TX Symbicort to 2 inhalations BID Lasix No need for systemic steroids at this time smoking cessation encourage use of [address] Zarco
[2018-09-26 12:53] LABS: ACANTHOCYTES 1+; ANISOCYTOSIS 3+; MACROCYTOSIS 0; OVALOCYTE 2+; PLATELET ESTIMATE NORMAL
--- NOTE | 2018-09-26 13:17 | PN ---
Progress Note, Physician History of Present Illness: Pt seen and examined at bedside. He is awake and alert. He feels that his edema is improved. - Current Medication List Current Medications: Active Medications Albuterol/Ipratropium (Duoneb -) 1 amp NEB RQID [facility] Last Admin: 09/26/18 11:33 Dose: 1 amp Amoxicillin/Clavulanate Potassium (Augmentin - 500mg Tablet) 1 tab PO BID@0800, 1730 [facility] Last Admin: 09/26/18 10:37 Dose: 1 tab Atorvastatin Calcium (Lipitor -) 40 mg PO [facility] Last Admin: 09/25/18 21:56 Dose: 40 mg Budesonide/Formoterol Fumarate (Symbicort 160/4.5mcg -) 2 puff IH BID [facility] Last Admin: 09/26/18 10:37 Dose: 2 puff Cyanocobalamin (Vitamin B12 -) 1,000 mcg PO DAILY [facility] Last Admin: 09/26/18 10:38 Dose: 1,000 mcg Furosemide (Lasix Injection -) 60 mg IVPUSH BID@0600,1400 [facility] Stop: 09/27/18 06:00 Last Admin: 09/26/18 07:33 Dose: 60 mg Furosemide (Lasix Injection -) 40 mg IVPUSH DAILY [facility] Gabapentin (Neurontin -) 100 mg PO BID [facility] Last Admin: 09/26/18 10:36 Dose: 100 mg Heparin Sodium (Porcine) (Heparin -) 5,000 unit SQ TID [facility] Last Admin: 09/26/18 07:36 Dose: 5,000 unit Hydralazine HCl (Apresoline -) 25 mg PO BID [facility] Last Admin: 09/26/18 10:36 Dose: 25 mg Insulin Aspart (Novolog Vial Sliding Scale -) 1 vial SQ [facility]; Protocol Last Admin: 09/26/18 13:08 Dose: Not Given Isosorbide Mononitrate (Imdur -) 30 mg PO DAILY [facility] Last Admin: 09/26/18 10:36 Dose: 30 mg Levothyroxine Sodium (Synthroid -) 25 mcg PO DAILY@0700 [facility] Last Admin: 09/26/18 07:34 Dose: 25 mcg Losartan Potassium (Cozaar -) 25 mg PO [facility] Last Admin: 09/25/18 21:56 Dose: 25 mg Magnesium Oxide (Mag-Ox -) 400 mg PO BID [facility] Last Admin: 09/26/18 10:36 Dose: 400 mg Metoprolol Succinate (Toprol Xl -) 75 mg PO DAILY [facility] Last Admin: 09/26/18 10:36 Dose: 75 mg Multivitamins/Minerals/Vitamin C (Tab-A-Vit -) 1 tab PO DAILY [facility] Last Admin: 09/26/18 10:36 Dose: 1 tab Pantoprazole Sodium (Protonix -) 40 mg PO DAILY [facility] Last Admin: 09/26/18 10:36 Dose: 40 mg Tamsulosin HCl (Flomax -) 0.4 mg PO DAILY@0830 [facility] Last Admin: 09/26/18 08:36 Dose: 0.4 mg - Objective Vital Signs: Vital Signs Temperature 98.3 F 09/26/18 06:00 Pulse Rate 67 09/26/18 06:00 Respiratory Rate 20 09/26/18 06:00 Blood Pressure 106/62 09/26/18 06:00 O2 Sat by Pulse Oximetry (%) 96 09/25/18 21:00 Constitutional: Yes: Calm Eyes: Yes: Conjunctiva Clear HENT: Yes: Atraumatic Cardiovascular: Yes: S1, S2 Respiratory: Yes: On Nasal O2, Wheezes Gastrointestinal: Yes: Soft Edema: RLE: Trace Neurological: Yes: Oriented Psychiatric: Yes: Oriented Labs: CBC, BMP 09/26/18 06:00 09/26/18 06:00 INR, PTT INR 1.16 (0.83-1.09) H 09/14/18 05:30 Fibrinogen 443.0 mg/dL (238-498) 09/22/18 14:20 Problem List - Problems (1) COPD exacerbation Code(s): J44.1 - CHRONIC OBSTRUCTIVE PULMONARY DISEASE W (ACUTE) EXACERBATION (2) Heart failure Code(s): I50.9 - HEART FAILURE, UNSPECIFIED Qualifiers: Heart failure type: combined systolic and diastolic Heart failure chronicity: acute on chronic Qualified Code(s): I50.43 - Acute on chronic combined systolic (congestive) and diastolic (congestive) heart failure (3) Nephrotic range proteinuria Code(s): R80.9 - PROTEINURIA, UNSPECIFIED (4) CKD (chronic kidney disease) Code(s): N18.9 - CHRONIC KIDNEY DISEASE, UNSPECIFIED Qualifiers: Chronic kidney disease stage: stage 3 (moderate) Qualified Code(s): N18.3 - Chronic kidney disease, stage 3 (moderate) Assessment/Plan Current Medications Generic Name Dose Route Start Last Admin Trade Name Brenton PRN Reason Stop Dose Admin Albuterol/Ipratropium 1 amp 09/18/18 16:00 09/26/18 11:33 Duoneb - NEB 1 amp RQID [facility] Administration Amoxicillin/Clavulanate Potassium 1 tab 09/21/18 17:30 09/26/18 10:37 Augmentin - 500mg Tablet PO 1 tab BID@0800,1730 [facility] Administration Atorvastatin Calcium 40 mg 09/16/18 22:00 09/25/18 21:56 Lipitor - PO 40 mg HS [facility] Administration Budesonide/Formoterol Fumarate 2 puff 09/24/18 22:00 09/26/18 10:37 Symbicort 160/4.5mcg - IH 2 puff BID [facility] Administration Cyanocobalamin 1,000 mcg 09/17/18 10:00 09/26/18 10:38 Vitamin B12 - PO 1,000 mcg DAILY [facility] Administration Furosemide 60 mg 09/21/18 14:00 09/26/18 07:33 Lasix Injection - IVPUSH 09/27/18 06:00 60 mg BID@0600,1400 [facility] Administration Furosemide 40 mg 09/27/18 10:00 Lasix Injection - IVPUSH DAILY [facility] Gabapentin 100 mg 09/17/18 22:00 09/26/18 10:36 Neurontin - PO 100 mg BID [facility] Administration Heparin Sodium (Porcine) 5,000 unit 09/19/18 22:00 09/26/18 07:36 Heparin - SQ 5,000 unit TID [facility] Administration Hydralazine HCl 25 mg 09/22/18 10:25 09/26/18 10:36 Apresoline - PO 25 mg BID [facility] Administration Insulin Aspart 1 vial 09/16/18 16:30 09/26/18 13:08 Novolog Vial Sliding Scale - SQ Not Given ACHS [facility] Protocol Isosorbide Mononitrate 30 mg 09/22/18 10:27 09/26/18 10:36 Imdur - PO 30 mg DAILY [facility] Administration Levothyroxine Sodium 25 mcg 09/17/18 07:00 09/26/18 07:34 Synthroid - PO 25 mcg DAILY@0700 [facility] Administration Losartan Potassium 25 mg 09/25/18 20:01 09/25/18 21:56 Cozaar - PO 25 mg HS [facility] Administration Magnesium Oxide 400 mg 09/17/18 22:00 09/26/18 10:36 Mag-Ox - PO 400 mg BID [facility] Administration Metoprolol Succinate 75 mg 09/17/18 17:15 09/26/18 10:36 Toprol Xl - PO 75 mg DAILY [facility] Administration Multivitamins/Minerals/Vitamin C 1 tab 09/17/18 10:00 09/26/18 10:36 Tab-A-Vit - PO 1 tab DAILY [facility] Administration Pantoprazole Sodium 40 mg 09/17/18 10:00 09/26/18 10:36 Protonix - PO 40 mg DAILY [facility] Administration Tamsulosin HCl 0.4 mg 09/17/18 08:30 09/26/18 08:36 Flomax - PO 0.4 mg DAILY@0830 [facility] Administration Impression 1. CKD 2. anemia 3. history of hyperkalemia 4. HTN 5. DM 6. hypothyroidism 7. HLD 8. copd 9. proteinuria - nephrotic 10. active smoker 11. fluid overload Plan - volume status is markedly improved - cont with lasix , can switch to PO in the next 24 to 48 hrs - would give 60 instead of 40 IV tomorow - can also give metolazone 3 days a week or daily as needed - pt tolerating losartan - potassium stable - low potassium diet - will follow Dr Haley
--- NOTE | 2018-09-26 14:24 | PN ---
Progress Note, Physician History of Present Illness: says he is doing better calm no complaints remaining stable - Current Medication List Current Medications: Active Medications Albuterol/Ipratropium (Duoneb -) 1 amp NEB RQID [facility] Last Admin: 09/26/18 11:33 Dose: 1 amp Amoxicillin/Clavulanate Potassium (Augmentin - 500mg Tablet) 1 tab PO BID@0800, 1730 [facility] Last Admin: 09/26/18 10:37 Dose: 1 tab Atorvastatin Calcium (Lipitor -) 40 mg PO [facility] Last Admin: 09/25/18 21:56 Dose: 40 mg Budesonide/Formoterol Fumarate (Symbicort 160/4.5mcg -) 2 puff IH BID [facility] Last Admin: 09/26/18 10:37 Dose: 2 puff Cyanocobalamin (Vitamin B12 -) 1,000 mcg PO DAILY [facility] Last Admin: 09/26/18 10:38 Dose: 1,000 mcg Furosemide (Lasix Injection -) 60 mg IVPUSH BID@0600,1400 [facility] Stop: 09/27/18 06:00 Last Admin: 09/26/18 07:33 Dose: 60 mg Furosemide (Lasix Injection -) 60 mg IVPUSH DAILY [facility] Gabapentin (Neurontin -) 100 mg PO BID [facility] Last Admin: 09/26/18 10:36 Dose: 100 mg Heparin Sodium (Porcine) (Heparin -) 5,000 unit SQ TID [facility] Last Admin: 09/26/18 07:36 Dose: 5,000 unit Hydralazine HCl (Apresoline -) 25 mg PO BID [facility] Last Admin: 09/26/18 10:36 Dose: 25 mg Insulin Aspart (Novolog Vial Sliding Scale -) 1 vial SQ [facility]; Protocol Last Admin: 09/26/18 13:08 Dose: Not Given Isosorbide Mononitrate (Imdur -) 30 mg PO DAILY [facility] Last Admin: 09/26/18 10:36 Dose: 30 mg Levothyroxine Sodium (Synthroid -) 25 mcg PO DAILY@0700 [facility] Last Admin: 09/26/18 07:34 Dose: 25 mcg Losartan Potassium (Cozaar -) 25 mg PO [facility] Last Admin: 09/25/18 21:56 Dose: 25 mg Magnesium Oxide (Mag-Ox -) 400 mg PO BID [facility] Last Admin: 09/26/18 10:36 Dose: 400 mg Metoprolol Succinate (Toprol Xl -) 75 mg PO DAILY [facility] Last Admin: 09/26/18 10:36 Dose: 75 mg Multivitamins/Minerals/Vitamin C (Tab-A-Vit -) 1 tab PO DAILY [facility] Last Admin: 09/26/18 10:36 Dose: 1 tab Pantoprazole Sodium (Protonix -) 40 mg PO DAILY [facility] Last Admin: 09/26/18 10:36 Dose: 40 mg Tamsulosin HCl (Flomax -) 0.4 mg PO DAILY@0830 [facility] Last Admin: 09/26/18 08:36 Dose: 0.4 mg - Objective Vital Signs: Vital Signs Temperature 98.3 F 09/26/18 06:00 Pulse Rate 67 09/26/18 06:00 Respiratory Rate 20 09/26/18 06:00 Blood Pressure 106/62 09/26/18 06:00 O2 Sat by Pulse Oximetry (%) 96 09/25/18 21:00 Constitutional: Yes: No Distress, Calm Cardiovascular: Yes: Regular Rate and Rhythm Respiratory: Yes: Regular, On Nasal O2, Poor Air Entry Gastrointestinal: Yes: Normal Bowel Sounds, Soft Musculoskeletal: Yes: WNL Extremities: Yes: Other Neurological: Yes: Alert, Oriented Psychiatric: Yes: Alert, Oriented Labs: CBC, BMP 09/26/18 06:00 09/26/18 06:00 INR, PTT INR 1.16 (0.83-1.09) H 09/14/18 05:30 Fibrinogen 443.0 mg/dL (238-498) 09/22/18 14:20 Assessment/Plan Problem List - Problems (1) Nephrotic range proteinuria Code(s): R80.9 - PROTEINURIA, UNSPECIFIED (2) Heart failure Code(s): I50.9 - HEART FAILURE, UNSPECIFIED Qualifiers: Heart failure type: combined systolic and diastolic Heart failure chronicity: acute on chronic Qualified Code(s): I50.43 - Acute on chronic combined systolic (congestive) and diastolic (congestive) heart failure (3) CKD (chronic kidney disease) Code(s): N18.9 - CHRONIC KIDNEY DISEASE, UNSPECIFIED Qualifiers: Chronic kidney disease stage: stage 3 (moderate) Qualified Code(s): N18.3 - Chronic kidney disease, stage 3 (moderate) (4) Cardiomyopathy as manifestation of underlying disease Code(s): I43 - CARDIOMYOPATHY IN DISEASES CLASSIFIED ELSEWHERE (5) Hypothyroid Code(s): E03.9 - HYPOTHYROIDISM, UNSPECIFIED Qualifiers: Hypothyroidism type: unspecified Qualified Code(s): E03.9 - Hypothyroidism , unspecified 6 pneumonia patients sputum positive plan continue abx incentive jerad watch on h and h rest as per the team
--- NOTE | 2018-09-26 16:19 | PN ---
Physical Exam: SUBJECTIVE: Patient seen and examined Feels beter, No acute distress. OBJECTIVE: Vital Signs Period Temp Pulse Resp BP Sys/Stoner Pulse Ox Last 24 Hr 97.6 F-98.8 F 67-83 19-20 100-111/46-66 96 GENERAL: The patient is awake, alert, and fully oriented, in no acute distress. HEAD: Normal with no signs of trauma. EYES: PERRL, extraocular movements intact, sclera anicteric, conjunctiva clear. No ptosis. ENT: Ears normal, nares patent, oropharynx clear without exudates, moist mucous membranes. NECK: Trachea midline, full range of motion, supple. LUNGS: Breath sounds equal, Faint crackles B/L, no accessory muscle use. HEART: Regular rate and rhythm, S1, S2 without murmur, rub or gallop. ABDOMEN: Soft, nontender, nondistended, normoactive bowel sounds, no guarding, no rebound, no hepatosplenomegaly, no masses. EXTREMITIES: 2+ pulses, warm, well-perfused, RLE edema with Left BKA. NEUROLOGICAL: Cranial nerves II through XII grossly intact. Normal speech, gait not observed. PSYCH: Normal mood, normal affect. SKIN: Warm, dry, normal turgor, no rashes or lesions noted Laboratory Results - last 24 hr 09/25/18 09/25/18 09/25/18 06:35 17:03 21:50 WBC RBC Hgb Hct MCV MCH MCHC RDW Plt Count MPV Absolute Neuts (auto) Neutrophils % Neutrophils % (Manual) 51.5 Band Neutrophils % 0.0 Lymphocytes % Lymphocytes % (Manual) 25.3 D Monocytes % Monocytes % (Manual) 20 H Eosinophils % Eosinophils % (Manual) 2.0 D Basophils % Basophils % (Manual) 1.0 D Myelocytes % (Man) 0 Promyelocytes % (Man) 0 Blast Cells % (Manual) 0 Nucleated RBC % 0 Metamyelocytes 0 Hypochromia 1+ Platelet Estimate Normal Platelet Comment Present Polychromasia 0 Poikilocytosis 0 Basophilic Stippling 1+ Anisocytosis 2+ Microcytosis 0 Macrocytosis 1+ Tear Drop Cells 1+ Ovalocytes Acanthocytes (Spur) Fragmented RBCs 1+ Sodium Potassium Chloride Carbon Dioxide Anion Gap BUN Creatinine Creat Clearance w eGFR POC Glucometer 155 156 Random Glucose Calcium Total Bilirubin AST ALT Alkaline Phosphatase Total Protein Albumin 09/26/18 09/26/18 09/26/18 06:00 06:00 07:02 WBC 3.5 L RBC 2.41 L Hgb 8.5 L Hct 23.9 L MCV 99.2 H MCH 35.4 H MCHC 35.7 RDW 20.1 H Plt Count 230 MPV 10.2 Absolute Neuts (auto) 1.8 Neutrophils % 50.5 Neutrophils % (Manual) 53.4 Band Neutrophils % 0.0 Lymphocytes % 21.9 Lymphocytes % (Manual) 9.7 D Monocytes % 25.6 H Monocytes % (Manual) 16 H Eosinophils % 1.6 Eosinophils % (Manual) 2.9 Basophils % 0.4 Basophils % (Manual) 0.0 Myelocytes % (Man) 0 Promyelocytes % (Man) 0 Blast Cells % (Manual) 0 Nucleated RBC % 0 Metamyelocytes 0 Hypochromia 0 Platelet Estimate Normal Platelet Comment Polychromasia 2+ Poikilocytosis 1+ Basophilic Stippling 1+ Anisocytosis 3+ Microcytosis 2+ Macrocytosis 0 Tear Drop Cells Ovalocytes 2+ Acanthocytes (Spur) 1+ Fragmented RBCs Sodium 139 Potassium 3.8 Chloride 93 L Carbon Dioxide 40 H Anion Gap 6 L BUN 76 H Creatinine 2.6 H Creat Clearance w eGFR 24.74 POC Glucometer 161 Random Glucose 151 H Calcium 8.4 L Total Bilirubin 0.5 AST 33 ALT 41 Alkaline Phosphatase 66 Total Protein 5.9 L Albumin 2.5 L 09/26/18 12:52 WBC RBC Hgb Hct MCV MCH MCHC RDW Plt Count MPV Absolute Neuts (auto) Neutrophils % Neutrophils % (Manual) Band Neutrophils % Lymphocytes % Lymphocytes % (Manual) Monocytes % Monocytes % (Manual) Eosinophils % Eosinophils % (Manual) Basophils % Basophils % (Manual) Myelocytes % (Man) Promyelocytes % (Man) Blast Cells % (Manual) Nucleated RBC % Metamyelocytes Hypochromia Platelet Estimate Platelet Comment Polychromasia Poikilocytosis Basophilic Stippling Anisocytosis Microcytosis Macrocytosis Tear Drop Cells Ovalocytes Acanthocytes (Spur) Fragmented RBCs Sodium Potassium Chloride Carbon Dioxide Anion Gap BUN Creatinine Creat Clearance w eGFR POC Glucometer 189 Random Glucose Calcium Total Bilirubin AST ALT Alkaline Phosphatase Total Protein Albumin Active Medications Generic Name Dose Route Start Last Admin Trade Name Freq PRN Reason Stop Dose Admin Albuterol/Ipratropium 1 amp 09/18/18 16:00 09/26/18 15:50 Duoneb - NEB 1 amp RQID [facility] Administration Amoxicillin/Clavulanate Potassium 1 tab 09/21/18 17:30 09/26/18 10:37 Augmentin - 500mg Tablet PO 1 tab BID@0800,1730 [facility] Administration Atorvastatin Calcium 40 mg 09/16/18 22:00 09/25/18 21:56 Lipitor - PO 40 mg HS [facility] Administration Budesonide/Formoterol Fumarate 2 puff 09/24/18 22:00 09/26/18 10:37 Symbicort 160/4.5mcg - IH 2 puff BID [facility] Administration Cyanocobalamin 1,000 mcg 09/17/18 10:00 09/26/18 10:38 Vitamin B12 - PO 1,000 mcg DAILY [facility] Administration Furosemide 60 mg 09/21/18 14:00 09/26/18 15:23 Lasix Injection - IVPUSH 09/27/18 06:00 60 mg BID@0600,1400 [facility] Administration Furosemide 60 mg 09/27/18 10:00 Lasix Injection - IVPUSH DAILY [facility] Gabapentin 100 mg 09/17/18 22:00 09/26/18 10:36 Neurontin - PO 100 mg BID [facility] Administration Heparin Sodium (Porcine) 5,000 unit 09/19/18 22:00 09/26/18 15:23 Heparin - SQ 5,000 unit TID [facility] Administration Hydralazine HCl 25 mg 09/22/18 10:25 09/26/18 10:36 Apresoline - PO 25 mg BID [facility] Administration Insulin Aspart 1 vial 09/16/18 16:30 09/26/18 13:08 Novolog Vial Sliding Scale - SQ Not Given ACHS [facility] Protocol Isosorbide Mononitrate 30 mg 09/22/18 10:27 09/26/18 10:36 Imdur - PO 30 mg DAILY [facility] Administration Levothyroxine Sodium 25 mcg 09/17/18 07:00 09/26/18 07:34 Synthroid - PO 25 mcg DAILY@0700 [facility] Administration Losartan Potassium 25 mg 09/25/18 20:01 09/25/18 21:56 Cozaar - PO 25 mg HS [facility] Administration Magnesium Oxide 400 mg 09/17/18 22:00 09/26/18 10:36 Mag-Ox - PO 400 mg BID [facility] Administration Metoprolol Succinate 75 mg 09/17/18 17:15 09/26/18 10:36 Toprol Xl - PO 75 mg DAILY [facility] Administration Multivitamins/Minerals/Vitamin C 1 tab 09/17/18 10:00 09/26/18 10:36 Tab-A-Vit - PO 1 tab DAILY [facility] Administration Pantoprazole Sodium 40 mg 09/17/18 10:00 09/26/18 10:36 Protonix - PO 40 mg DAILY [facility] Administration Tamsulosin HCl 0.4 mg 09/17/18 08:30 09/26/18 08:36 Flomax - PO 0.4 mg DAILY@0830 [facility] Administration ASSESSMENT/PLAN: 1. Acute exacerbation of moderate to severe COPD, resolving 2. Acute on chronic class II NYHA classification LV diastolic/systolic failure, resolving 3. CAD angina pectoris 4. HTN 5. DM 6. Hypercholesterolemia 7. Hypothyroidism 8. CKD 9. Abnormal LFT from hepatic congestion 10. Anemia post transfusion etiology to be determined 11. Left BKA PLAN: Will decrease Lasix to 40mg IV qd with caution and monitor renal function and electrolytes Continue Toprol XL 75 qd Continue Cozaar 25 qhs Continue Hydralazine 25 bid and Imdur 30 qd Continue ASA ,Lipitor 40 qhs Continue bronchodilators, inhaled steroids, abx course Would do d/c planning to SNF . Visit type - Emergency Visit Emergency Visit: Yes ED Registration Date: 09/11/18 Care time: The patient presented to the Emergency Department on the above date and was hospitalized for further evaluation of their emergent condition. - New Patient This patient is new to me today: Yes Date on this admission: 09/26/18 - Critical Care Critical Care patient: No - Discharge Referral Referred to [facility] No
[2018-09-26] MEDS ORDERED: INSULIN (NOVOLOG) ASPART 100 UNITS/ML 10ML VIAL ONE (20:13)
[2018-09-26] MEDS: LOSARTAN POTASSIUM 25 MG TABLET PO SCH (21:39)
[2018-09-26] MEDS: ATORVASTATIN CA 40 MG TABLET (FP) PO SCH (21:40)
[2018-09-27] MEDS: FUROSEMIDE 40 MG/4 ML INJECTABLE VIAL IVPUSH SCH (05:50)
[2018-09-27] MEDS: LEVOTHYROXINE NA 25 MCG TABLET (FP) PO SCH (06:23)
[2018-09-27] MEDS: INSULIN SLIDING SCALE (NOVOLOG) 1 VIAL SQ SCH ×3 (06:23→17:23)
[2018-09-27] MEDS: ALBUTEROL SO4 2.5/IPRATROPIUM 0.5 INH SOL 3 ML VIAL.NEB. NEB SCH (07:53)
[2018-09-27] MEDS: TAMSULOSIN HCL 0.4 MG CAP PO SCH (09:00)
[2018-09-27] MEDS ORDERED: PT OWN MED DRAWER 7, Y5N ONE (09:25)
[2018-09-27] MEDS: AMOX TR/POT CLAV 500MG/125MG TABLETS (FP) PO SCH ×2 (09:32→18:17)
[2018-09-27] MEDS: MAGNESIUM OXIDE 400 MG TABLET (FP) PO SCH (09:32)
[2018-09-27] MEDS: CYANOCOBALAMIN 1,000 MCG TABLET (FP) PO SCH (09:32)
[2018-09-27] MEDS: MULTIVITAMINS (DAILY MVI) TABLET (FP) PO SCH (09:32)
[2018-09-27] MEDS: PANTOPRAZOLE 40 MG TABLET (FP) PO SCH (09:33)
[2018-09-27] MEDS: GABAPENTIN 100 MG CAPSULE (FP) PO SCH (09:33)
[2018-09-27] MEDS: BUDESONIDE/FORMETEROL FUMARATE 160/4.5 mcg INHALER IH SCH (09:44)
[2018-09-27] MEDS ORDERED: FUROSEMIDE 40 MG/4 ML INJECTABLE VIAL IVPUSH SCH ×3 (10:00→13:49)
--- NOTE | 2018-09-27 10:22 | PN ---
Progress Note, Physician Chief Complaint: No new events Not in distress feels better History of Present Illness: Patient was seen and examined. Awake and alert. Chart was reviewed Denies chest pain or SOB - Current Medication List Current Medications: Active Medications Albuterol/Ipratropium (Duoneb -) 1 amp NEB RQID [facility] Last Admin: 09/27/18 07:53 Dose: 1 amp Amoxicillin/Clavulanate Potassium (Augmentin - 500mg Tablet) 1 tab PO BID@0800, 1730 [facility] Last Admin: 09/27/18 09:32 Dose: 1 tab Atorvastatin Calcium (Lipitor -) 40 mg PO [facility] Last Admin: 09/26/18 21:40 Dose: 40 mg Budesonide/Formoterol Fumarate (Symbicort 160/4.5mcg -) 2 puff IH BID [facility] Last Admin: 09/27/18 09:44 Dose: 2 puff Cyanocobalamin (Vitamin B12 -) 1,000 mcg PO DAILY [facility] Last Admin: 09/27/18 09:32 Dose: 1,000 mcg Furosemide (Lasix Injection -) 60 mg IVPUSH DAILY [facility] Last Admin: 09/27/18 09:33 Dose: 60 mg Gabapentin (Neurontin -) 100 mg PO BID [facility] Last Admin: 09/27/18 09:33 Dose: 100 mg Hydralazine HCl (Apresoline -) 25 mg PO BID [facility] Last Admin: 09/26/18 21:39 Dose: Not Given Insulin Aspart (Novolog Vial Sliding Scale -) 1 vial SQ [facility]; Protocol Last Admin: 09/27/18 06:23 Dose: 2 units Isosorbide Mononitrate (Imdur -) 30 mg PO DAILY [facility] Last Admin: 09/26/18 10:36 Dose: 30 mg Levothyroxine Sodium (Synthroid -) 25 mcg PO DAILY@0700 [facility] Last Admin: 09/27/18 06:23 Dose: 25 mcg Losartan Potassium (Cozaar -) 25 mg PO [facility] Last Admin: 09/26/18 21:39 Dose: 25 mg Magnesium Oxide (Mag-Ox -) 400 mg PO BID [facility] Last Admin: 09/27/18 09:32 Dose: 400 mg Metoprolol Succinate (Toprol Xl -) 75 mg PO DAILY [facility] Last Admin: 09/26/18 10:36 Dose: 75 mg Multivitamins/Minerals/Vitamin C (Tab-A-Vit -) 1 tab PO DAILY [facility] Last Admin: 09/27/18 09:32 Dose: 1 tab Pantoprazole Sodium (Protonix -) 40 mg PO DAILY [facility] Last Admin: 09/27/18 09:33 Dose: 40 mg Tamsulosin HCl (Flomax -) 0.4 mg PO DAILY@0830 [facility] Last Admin: 09/27/18 09:00 Dose: 0.4 mg - Objective Vital Signs: Vital Signs Temperature 97.9 F 09/27/18 09:29 Pulse Rate 71 09/27/18 09:29 Respiratory Rate 18 09/27/18 09:29 Blood Pressure 110/63 09/27/18 09:29 O2 Sat by Pulse Oximetry (%) 96 09/26/18 21:00 HENT: Yes: Atraumatic Neck: Yes: Supple Cardiovascular: Yes: Regular Rate and Rhythm, S1, S2 Respiratory: Yes: CTA Bilaterally Gastrointestinal: Yes: Normal Bowel Sounds, Soft. No: Tenderness Extremities: Yes: Amputation Edema: RLE: Trace Additional Findings/Remarks: - Review of Systems Constitutional: denies: Chills. denies: Fever Cardiovascular: denies: Shortness of Breath. denies: Chest Pain, Palpitations Respiratory: denies: SOB, SOB on Exertion. denies: Cough, Hemoptysis, Orthopnea , PND Gastrointestinal: denies: Abdominal Pain, Constipation, Diarrhea, Melena, Nausea , Rectal Bleeding, Vomiting Genitourinary: denies: Dysuria, Hematuria Musculoskeletal: denies: Back Pain, Joint Pain Integumentary: denies:Erythema Neurological: denies: Dizziness. denies: Headache, Seizure, Syncope Labs: CBC, BMP 09/26/18 06:00 09/26/18 06:00 Problem List - Problems (1) COPD exacerbation Code(s): J44.1 - CHRONIC OBSTRUCTIVE PULMONARY DISEASE W (ACUTE) EXACERBATION (2) Dyslipidemia (high LDL; low HDL) Code(s): E78.5 - HYPERLIPIDEMIA, UNSPECIFIED (3) HTN (hypertension) Code(s): I10 - ESSENTIAL (PRIMARY) HYPERTENSION Qualifiers: Hypertension type: essential hypertension Qualified Code(s): I10 - Essential (primary) hypertension (4) Mitral valve regurgitation Code(s): I34.0 - NONRHEUMATIC MITRAL (VALVE) INSUFFICIENCY Qualifiers: Cardiac valve disease etiology: nonrheumatic Qualified Code(s): I34.0 - Nonrheumatic mitral (valve) insufficiency (5) Nephrotic range proteinuria Code(s): R80.9 - PROTEINURIA, UNSPECIFIED (6) Non-insulin dependent type 2 diabetes mellitus Code(s): E11.9 - TYPE 2 DIABETES MELLITUS WITHOUT COMPLICATIONS (7) Shortness of breath Code(s): R06.02 - SHORTNESS OF BREATH (8) CKD (chronic kidney disease) Code(s): N18.9 - CHRONIC KIDNEY DISEASE, UNSPECIFIED Qualifiers: Chronic kidney disease stage: stage 3 (moderate) Qualified Code(s): N18.3 - Chronic kidney disease, stage 3 (moderate) (9) Anemia Code(s): D64.9 - ANEMIA, UNSPECIFIED Qualifiers: Anemia type: other cause Other causes of anemia: other cause, not classified Qualified Code(s): D64.89 - Other specified anemias (10) Diastolic dysfunction Code(s): I51.9 - HEART DISEASE, UNSPECIFIED (11) Hypothyroid Code(s): E03.9 - HYPOTHYROIDISM, UNSPECIFIED Qualifiers: Hypothyroidism type: unspecified Qualified Code(s): E03.9 - Hypothyroidism , unspecified Assessment/Plan 1. BRAGG due to acute exacerbation of moderate to severe COPD - improved 2. Acute on chronic diastolic/systolic failure - improved 3. Anemia post transfusion, ? MDS vs multiple myeloma 4. CKD with proteinuria - nephrotic and history of hyperkalemia 5. HTN 6. Type 2 DM 7. hypothyroidism 8. Hypercholesterolemia 9. Abnormal LFT from hepatic congestion 10. Pulmonary nodule and history of laryngeal cancer s/p XRT and chemotherapy 11. Left BKA PLAN: 1. Continue diuresis (currently IV Lasix) with monitor renal function and electrolytes - consider reducing the IV dose and eventually switching to PO 2. Continue bronchodilators, inhaled steroids, O2 as needed 3. Continue ASA 81 qd, Lipitor 40 qhs, Losartan 25 mg QD, Hydralazine 25 mg BID and Toprol XL 75 mg QD as tolerated 4. Monitor H/H and transfuse PRBC as needed. Further plans are to follow Aman Zavala MD
[2018-09-27] MEDS: hydrALAZINE HCL 25 MG TABLET (FP) PO SCH (11:33)
[2018-09-27] MEDS: ISOSORBIDE MONONITRATE 30 MG TAB.SR.24H (FP) PO SCH (11:33)
--- NOTE | 2018-09-27 13:29 | PN ---
Progress Note, Physician History of Present Illness: stable no issues says he is doing much better no complaints - Current Medication List Current Medications: Active Medications Amoxicillin/Clavulanate Potassium (Augmentin - 500mg Tablet) 1 tab PO BID@0800, 1730 [facility] Last Admin: 09/27/18 09:32 Dose: 1 tab Atorvastatin Calcium (Lipitor -) 40 mg PO [facility] Last Admin: 09/26/18 21:40 Dose: 40 mg Budesonide/Formoterol Fumarate (Symbicort 160/4.5mcg -) 2 puff IH BID [facility] Last Admin: 09/27/18 09:44 Dose: 2 puff Cyanocobalamin (Vitamin B12 -) 1,000 mcg PO DAILY [facility] Last Admin: 09/27/18 09:32 Dose: 1,000 mcg Furosemide (Lasix Injection -) 60 mg IVPUSH DAILY [facility] Last Admin: 09/27/18 09:33 Dose: 60 mg Gabapentin (Neurontin -) 100 mg PO BID [facility] Last Admin: 09/27/18 09:33 Dose: 100 mg Hydralazine HCl (Apresoline -) 25 mg PO BID [facility] Last Admin: 09/27/18 11:33 Dose: Not Given Insulin Aspart (Novolog Vial Sliding Scale -) 1 vial SQ [facility]; Protocol Last Admin: 09/27/18 12:29 Dose: Not Given Isosorbide Mononitrate (Imdur -) 30 mg PO DAILY [facility] Last Admin: 09/27/18 11:33 Dose: Not Given Levothyroxine Sodium (Synthroid -) 25 mcg PO DAILY@0700 [facility] Last Admin: 09/27/18 06:23 Dose: 25 mcg Losartan Potassium (Cozaar -) 25 mg PO [facility] Last Admin: 09/26/18 21:39 Dose: 25 mg Magnesium Oxide (Mag-Ox -) 400 mg PO BID [facility] Last Admin: 09/27/18 09:32 Dose: 400 mg Metoprolol Succinate (Toprol Xl -) 75 mg PO DAILY [facility] Last Admin: 09/27/18 11:33 Dose: Not Given Multivitamins/Minerals/Vitamin C (Tab-A-Vit -) 1 tab PO DAILY [facility] Last Admin: 09/27/18 09:32 Dose: 1 tab Pantoprazole Sodium (Protonix -) 40 mg PO DAILY [facility] Last Admin: 09/27/18 09:33 Dose: 40 mg Tamsulosin HCl (Flomax -) 0.4 mg PO DAILY@0830 [facility] Last Admin: 09/27/18 09:00 Dose: 0.4 mg - Objective Vital Signs: Vital Signs Temperature 97.9 F 09/27/18 09:29 Pulse Rate 70 09/27/18 11:20 Respiratory Rate 17 09/27/18 11:20 Blood Pressure 103/52 L 09/27/18 11:20 O2 Sat by Pulse Oximetry (%) 96 09/27/18 09:00 Constitutional: Yes: No Distress, Calm Cardiovascular: Yes: S1, S2 Respiratory: Yes: Regular, CTA Bilaterally Gastrointestinal: Yes: Normal Bowel Sounds, Soft Musculoskeletal: Yes: Other Extremities: Yes: Other Neurological: Yes: Alert, Oriented Psychiatric: Yes: Alert, Oriented Labs: CBC, BMP 09/26/18 06:00 09/26/18 06:00 INR, PTT INR 1.16 (0.83-1.09) H 09/14/18 05:30 Fibrinogen 443.0 mg/dL (238-498) 09/22/18 14:20 Assessment/Plan Problem List - Problems (1) Nephrotic range proteinuria Code(s): R80.9 - PROTEINURIA, UNSPECIFIED (2) Heart failure Code(s): I50.9 - HEART FAILURE, UNSPECIFIED Qualifiers: Heart failure type: combined systolic and diastolic Heart failure chronicity: acute on chronic Qualified Code(s): I50.43 - Acute on chronic combined systolic (congestive) and diastolic (congestive) heart failure (3) CKD (chronic kidney disease) Code(s): N18.9 - CHRONIC KIDNEY DISEASE, UNSPECIFIED Qualifiers: Chronic kidney disease stage: stage 3 (moderate) Qualified Code(s): N18.3 - Chronic kidney disease, stage 3 (moderate) (4) Cardiomyopathy as manifestation of underlying disease Code(s): I43 - CARDIOMYOPATHY IN DISEASES CLASSIFIED ELSEWHERE (5) Hypothyroid Code(s): E03.9 - HYPOTHYROIDISM, UNSPECIFIED Qualifiers: Hypothyroidism type: unspecified Qualified Code(s): E03.9 - Hypothyroidism , unspecified 6 pneumonia patients sputum positive plan complete course of oral abx incentive jerad rest as per the team and adria onco
--- NOTE | 2018-09-27 13:34 | PN ---
Progress Note (short form) - Note Progress Note: Overall feels better. No acute events overnight. Intake & Output 09/24/18 09/25/18 09/26/18 09/27/18 23:59 23:59 23:59 23:59 Intake Total 650 1140 910 250 Output Total 1600 2400 2470 200 Balance -904 -4440 -1560 50 Weight 172 lb 2 oz 169 lb 9 oz Last Vital Signs Temp Pulse Resp BP Pulse Ox 97.9 F 70 17 103/52 L 96 09/27/18 09:29 09/27/18 11:20 09/27/18 11:20 09/27/18 11:20 09/27/18 09:00 Active Medications Amoxicillin/Clavulanate Potassium (Augmentin - 500mg Tablet) 1 tab PO BID@0800, 1730 [facility] Last Admin: 09/27/18 09:32 Dose: 1 tab Atorvastatin Calcium (Lipitor -) 40 mg PO [facility] Last Admin: 09/26/18 21:40 Dose: 40 mg Budesonide/Formoterol Fumarate (Symbicort 160/4.5mcg -) 2 puff IH BID [facility] Last Admin: 09/27/18 09:44 Dose: 2 puff Cyanocobalamin (Vitamin B12 -) 1,000 mcg PO DAILY [facility] Last Admin: 09/27/18 09:32 Dose: 1,000 mcg Furosemide (Lasix Injection -) 60 mg IVPUSH DAILY [facility] Last Admin: 09/27/18 09:33 Dose: 60 mg Gabapentin (Neurontin -) 100 mg PO BID [facility] Last Admin: 09/27/18 09:33 Dose: 100 mg Hydralazine HCl (Apresoline -) 25 mg PO BID [facility] Last Admin: 09/27/18 11:33 Dose: Not Given Insulin Aspart (Novolog Vial Sliding Scale -) 1 vial SQ ACHS [facility]; Protocol Last Admin: 09/27/18 12:29 Dose: Not Given Isosorbide Mononitrate (Imdur -) 30 mg PO DAILY [facility] Last Admin: 09/27/18 11:33 Dose: Not Given Levothyroxine Sodium (Synthroid -) 25 mcg PO DAILY@0700 [facility] Last Admin: 09/27/18 06:23 Dose: 25 mcg Losartan Potassium (Cozaar -) 25 mg PO [facility] Last Admin: 09/26/18 21:39 Dose: 25 mg Magnesium Oxide (Mag-Ox -) 400 mg PO BID [facility] Last Admin: 09/27/18 09:32 Dose: 400 mg Metoprolol Succinate (Toprol Xl -) 75 mg PO DAILY [facility] Last Admin: 09/27/18 11:33 Dose: Not Given Multivitamins/Minerals/Vitamin C (Tab-A-Vit -) 1 tab PO DAILY [facility] Last Admin: 09/27/18 09:32 Dose: 1 tab Pantoprazole Sodium (Protonix -) 40 mg PO DAILY [facility] Last Admin: 09/27/18 09:33 Dose: 40 mg Tamsulosin HCl (Flomax -) 0.4 mg PO DAILY@0830 [facility] Last Admin: 09/27/18 09:00 Dose: 0.4 mg Constitutional: Yes: NAD Eyes: Yes: WNL HENT: Yes: WNL Neck: Yes: WNL Cardiovascular: Yes: Regular Rate and Rhythm, S1, S2 Respiratory: Yes: Few scattered rhonchi Gastrointestinal: Yes: Normal Bowel Sounds, Soft Extremities: Yes: Amputation (left bka) Edema: Yes Labs: Laboratory Results - last 24 hr 09/26/18 09/26/18 09/26/18 06:00 17:07 21:38 Neutrophils % (Manual) 53.4 Band Neutrophils % 0.0 Lymphocytes % (Manual) 9.7 D Monocytes % (Manual) 16 H Eosinophils % (Manual) 2.9 Basophils % (Manual) 0.0 Myelocytes % (Man) 0 Promyelocytes % (Man) 0 Blast Cells % (Manual) 0 Metamyelocytes 0 Hypochromia 0 Platelet Estimate Normal Polychromasia 2+ Poikilocytosis 1+ Basophilic Stippling 1+ Anisocytosis 3+ Microcytosis 2+ Macrocytosis 0 Ovalocytes 2+ Acanthocytes (Spur) 1+ POC Glucometer 177 139 09/27/18 09/27/18 06:21 12:27 Neutrophils % (Manual) Band Neutrophils % Lymphocytes % (Manual) Monocytes % (Manual) Eosinophils % (Manual) Basophils % (Manual) Myelocytes % (Man) Promyelocytes % (Man) Blast Cells % (Manual) Metamyelocytes Hypochromia Platelet Estimate Polychromasia Poikilocytosis Basophilic Stippling Anisocytosis Microcytosis Macrocytosis Ovalocytes Acanthocytes (Spur) POC Glucometer 154 150 Problem List - Problems (1) BPH (benign prostatic hyperplasia) Code(s): N40.0 - BENIGN PROSTATIC HYPERPLASIA WITHOUT LOWER URINRY TRACT SYMP (2) COPD exacerbation Code(s): J44.1 - CHRONIC OBSTRUCTIVE PULMONARY DISEASE W (ACUTE) EXACERBATION (3) Dyslipidemia (high LDL; low HDL) Code(s): E78.5 - HYPERLIPIDEMIA, UNSPECIFIED (4) HTN (hypertension) Code(s): I10 - ESSENTIAL (PRIMARY) HYPERTENSION (5) Heart failure Code(s): I50.9 - HEART FAILURE, UNSPECIFIED Qualifiers: Heart failure type: combined systolic and diastolic Heart failure chronicity: acute on chronic Qualified Code(s): I50.43 - Acute on chronic combined systolic (congestive) and diastolic (congestive) heart failure (6) Nephrotic range proteinuria Code(s): R80.9 - PROTEINURIA, UNSPECIFIED (7) Non-insulin dependent type 2 diabetes mellitus Code(s): E11.9 - TYPE 2 DIABETES MELLITUS WITHOUT COMPLICATIONS (8) Shortness of breath Code(s): R06.02 - SHORTNESS OF BREATH (9) CKD (chronic kidney disease) Code(s): N18.9 - CHRONIC KIDNEY DISEASE, UNSPECIFIED Qualifiers: Chronic kidney disease stage: stage 3 (moderate) Qualified Code(s): N18.3 - Chronic kidney disease, stage 3 (moderate) (10) Anemia Code(s): D64.9 - ANEMIA, UNSPECIFIED Qualifiers: Anemia type: other cause Other causes of anemia: other cause, not classified Qualified Code(s): D64.89 - Other specified anemias (11) Cardiomyopathy as manifestation of underlying disease Code(s): I43 - CARDIOMYOPATHY IN DISEASES CLASSIFIED ELSEWHERE (12) Diastolic dysfunction Code(s): I51.9 - HEART DISEASE, UNSPECIFIED Assessment/Plan AE mod-severe copd improving Active smoker Acute on chronic diastolic/systolic failure Anemia CKD with proteinuria - nephrotic and h/o hyperkalemia HTN Type 2 DM hypothyroidism HLD 9 mm RUL pulm nodule, 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 BKA Macrocytic anemia ?mds O2 as ordered BD TX Symbicort 2 inhalations BID Lasix No need for systemic steroids at this time Smoking cessation Encourage use of [address] Zarco
--- NOTE | 2018-09-27 14:20 | DS ---
Physical Exam: SUBJECTIVE: Patient seen and examined OBJECTIVE: Vital Signs Period Temp Pulse Resp BP Sys/Stoner Pulse Ox Last 24 Hr 97.3 F-98.8 F 67-73 17-20 99-110/50-63 96-96 PHYSICAL EXAM GENERAL: The patient is awake, alert, and fully oriented, in no acute distress. HEAD: Normal with no signs of trauma. EYES: PERRL, extraocular movements intact, sclera anicteric, conjunctiva clear. ENT: Ears normal, nares patent, oropharynx clear without exudates, moist mucous membranes. NECK: Trachea midline, full range of motion, supple. LUNGS: Breath sounds equal, clear to auscultation bilaterally, no wheezes, no crackles, no accessory muscle use. HEART: Regular rate and rhythm, S1, S2 without murmur, rub or gallop. ABDOMEN: Soft, nontender, nondistended, normoactive bowel sounds, no guarding, no rebound, no hepatosplenomegaly, no masses. EXTREMITIES: 2+ pulses, warm, well-perfused, no edema. NEUROLOGICAL: Cranial nerves II through XII grossly intact. Normal speech, gait not observed. PSYCH: Normal mood, normal affect. SKIN: Warm, dry, normal turgor, no rashes or lesions noted. LABS Laboratory Results - last 24 hr 09/26/18 09/26/18 09/27/18 17:07 21:38 06:21 POC Glucometer 177 139 154 09/27/18 12:27 POC Glucometer 150 HOSPITAL COURSE: Date of Admission:09/11/18 Date of Discharge: 09/27/18 Discharge Summary Reason For Visit: SOB, HEART FAILURE,ACUTE EXACERBATION COPD Current Active Problems BPH (benign prostatic hyperplasia) (Acute) COPD exacerbation (Acute) Dyslipidemia (high LDL; low HDL) (Acute) HTN (hypertension) (Acute) Heart failure (Acute) Klebsiella pneumonia (Acute) Mitral valve regurgitation (Acute) Nephrotic range proteinuria (Acute) Non-insulin dependent type 2 diabetes mellitus (Acute) Prophylactic measure (Acute) Shortness of breath (Acute) CKD (chronic kidney disease) (Chronic) Condition: Guarded - Instructions Referrals: Curly Vargas MD [Primary Care Provider] - - Home Medications Comprehensive Discharge Medication List: Ambulatory Orders Cyanocobalamin [Vitamin B12 -] 1,000 mcg PO DAILY 07/13/18 Epoetin Blue [Procrit -] 20,000 unit IJ WEEKLY 07/13/18 Gabapentin [Neurontin -] 100 mg PO Q8H PRN 07/13/18 Levothyroxine [Synthroid -] 25 mcg PO DAILY 07/13/18 Metoprolol Succinate 100 mg PO DAILY 07/13/18 Pantoprazole Sodium 40 mg PO DAILY 07/13/18 Polyethylene Glycol 3350 [Laxaclear] 17 gm PO DAILY 07/13/18 Sennosides [Senna -] 1 tab PO HS 07/13/18 Silver Sulfadiazine 1% Top Cr [Silvadene -] 1 applic TP DAILY 07/13/18 Tamsulosin HCl [Flomax -] 0.4 mg PO DAILY 07/13/18 Tiotropium Br/Olodaterol HCl [Stiolto Respimat Inhal [place]] 2 puff IH BID Budesonide/Formeterol Fumarate [SYMBICORT 160/4.5mcg -] 1 inh PO BID 09/01/18 Multivitamins [Multivit ([facility] Formulary)] 1 tab PO DAILY 09/01/18 Tramadol HCl 50 mg PO BID PRN 09/01/18 Alcohol Antiseptic Pads [Alcohol Prep Pads] 1 each TP ACHS #1 box 09/04/18 Lancets [Lancets Thin] 1 each MC AC #1 box 09/04/18 Miscellaneous Medical Supply [Glucometer Device] 1 each SQ ASDIR #1 kit [facility] [Glucometer Test Strips #100] 1 each SQ ASDIR #1 box 09/04/18 Albuterol 0.083% Nebulizer Najma [Ventolin 0.083% Nebulizer Soln -] 1 amp NEB QID #1 amp 09/05/18 Albuterol Sulfate Inhaler - [Ventolin Hfa Inhaler -] 1 puff IH Q6H #1 inhaler Sitagliptin Phosphate [Januvia -] 25 mg PO DAILY@0700 #90 tab 09/05/18 Atorvastatin Ca [Lipitor] 40 mg PO HS 09/11/18 - Discharge Referral Referred to [facility] Med P.C.: No
--- NOTE | 2018-09-27 14:31 | DS ---
Physical Exam: SUBJECTIVE: Patient seen and examined at the bedside. Feels well, breathing improved. patient for discharge to rehab. OBJECTIVE: discharge to rehab today. Vital Signs Period Temp Pulse Resp BP Sys/Stoner Pulse Ox Last 24 Hr 97.3 F-98.8 F 67-73 17-20 99-110/50-63 96-96 PHYSICAL EXAM GENERAL: The patient is awake, alert, and fully oriented, in no respiratory distress HEAD: Normal with no signs of trauma. EYES: PERRL, extraocular movements intact, sclera anicteric, conjunctiva clear. No ptosis. ENT: Ears normal, nares patent, oropharynx clear without exudates, moist mucous membranes. NECK: Trachea midline, full range of motion, supple. LUNGS: diminished lungs bilaterally HEART: Regular rate and rhythm ABDOMEN: Soft, obese abdomen EXTREMITIES: left bki, right leg with non pitting edema NEUROLOGICAL: Normal speech PSYCH:calm SKIN: pallorous intact skin LABS Laboratory Results - last 24 hr 09/26/18 09/26/18 09/27/18 17:07 21:38 06:21 POC Glucometer 177 139 154 09/27/18 12:27 POC Glucometer 150 HOSPITAL COURSE: Patient is a 67 year old male with a past medical history of laryngeal cancer s/ p RT, chronic systolic CHF, BPH, chronic respiratory failure sec to COPD/CHF on 2L O2 via [place] (recently discharged 09/05/18), active smoker, CKD 3, chronic anemia, hypertension, HLD, PAD s/p LBKA and hypothyroidism. He presents with increasing SOB worse over the past 3 days, exacerbated by exertion. Heme: Symptomatic anemia/anemia of chronic disease. S/p prbc transfusions, hmg/hct low but stable. Asymptomatic currently. will need transfusion if <7. Followed by hematology. Patient for possible bone marrow biopsy outpatient. CBC to be monitored outpatient. Pulm: COPD exacerbation. resolved. On bronchodilators (symbicort, stiolto/respimat/inhal spray). nebs ordered. maintain oxygen >95. Home oxygen dependent. Card: Acute on chronic diastolic/systolic failure. acute on chronic. Presents with BNP of 40k. Echos shows dilated LV with segmental wall motion. reduced lv systolic fx. On metoprolol. On Lasix 40mg PO daily. Weights improved during hospitalization. Hypertension. chronic with episodes of hypotension. On Metoprolol succ. 100mg daily. Hydralazine BID. hold if systolic <100. Hld. chronic. On Lipitor Psyche Current everyday smoker. Tobacco cessation discussed. refusing nicotine patch. Renal: MEENAKSHI on CKD. followed by prescriptionist Dr. Haley. pt for a renal biopsy as outpatient On procrit. On a renal diet. Onc: Lung nodule. Patient has followed up at [facility] for lung nodule. Endocrine: DM. monitor bgms. novolog ss Hypothyroidism Levothyroxine 25 mcg PO DAILY discharge to rehab. Date of Admission:09/11/18 Date of Discharge: 09/27/18 Minutes to complete discharge: 60 Discharge Summary Reason For Visit: SOB, HEART FAILURE,ACUTE EXACERBATION COPD Current Active Problems BPH (benign prostatic hyperplasia) (Acute) COPD exacerbation (Acute) Dyslipidemia (high LDL; low HDL) (Acute) HTN (hypertension) (Acute) Heart failure (Acute) Klebsiella pneumonia (Acute) Mitral valve regurgitation (Acute) Nephrotic range proteinuria (Acute) Non-insulin dependent type 2 diabetes mellitus (Acute) Prophylactic measure (Acute) Shortness of breath (Acute) CKD (chronic kidney disease) (Chronic) Condition: Improved - Instructions Diet, Activity, Other Instructions: Mr. Rose: You were admitted 09/11/2018 for shortness of breath and acute exacerbation of COPD. Here are our recommendations: #Shortness of breath/COPD Continue the Augmentin twice per day for a total of 7 more days. You will complete this antibiotic on 10/04/2017. Continue the Lasix 40mg daily, nebulizers and oxygen therapy. #chronic kidney disease Please follow up with Dr. Haley (renal) for possible kidney biopsy. Please call us with any questions that you may have and please follow up with your primary care doctor within 3-5 days after discharge. Thank you [facility] [phone] Referrals: Curly Vargas MD [Primary Care Provider] - Sridevi Haley MD [Staff Physician] - 1 Week Disposition: LONGTERM FACILITY - Home Medications Comprehensive Discharge Medication List: Ambulatory Orders Cyanocobalamin [Vitamin B12 -] 1,000 mcg PO DAILY 07/13/18 Epoetin Blue [Procrit -] 20,000 unit IJ WEEKLY 07/13/18 Gabapentin [Neurontin -] 100 mg PO Q8H PRN 07/13/18 Levothyroxine [Synthroid -] 25 mcg PO DAILY 07/13/18 Metoprolol Succinate 100 mg PO DAILY 07/13/18 Pantoprazole Sodium 40 mg PO DAILY 07/13/18 Silver Sulfadiazine 1% Top Cr [Silvadene -] 1 applic TP DAILY 07/13/18 Tamsulosin HCl [Flomax -] 0.4 mg PO DAILY 07/13/18 Tiotropium Br/Olodaterol HCl [Stiolto Respimat Inhal [place]] 2 puff IH BID Budesonide/Formeterol Fumarate [SYMBICORT 160/4.5mcg -] 1 inh PO BID 09/01/18 Multivitamins [Multivit ([facility] Formulary)] 1 tab PO DAILY 09/01/18 Tramadol HCl 50 mg PO BID PRN 09/01/18 Alcohol Antiseptic Pads [Alcohol Prep Pads] 1 each TP ACHS #1 box 09/04/18 Lancets [Lancets Thin] 1 each MC AC #1 box 09/04/18 Albuterol Sulfate Inhaler - [Ventolin HFA Inhaler -] 1 puff IH Q6H #1 inhaler Sitagliptin Phosphate [Januvia -] 25 mg PO DAILY@0700 #90 tab 09/05/18 Atorvastatin Ca [Lipitor] 40 mg PO HS 09/11/18 Albuterol 2.5/Ipratropium 0.5 [Duoneb -] 1 amp NEB RQID amp 09/27/18 Amox-Tr/K Cl [Augmentin 500-125mg Tablet -] 1 tab PO BID@0800,1730 tablet 09/27 Furosemide [Lasix -] 40 mg PO DAILY tablet 09/27/18 Gabapentin [Neurontin -] 100 mg PO BID capsule 09/27/18 Insulin Sliding Scale [Novolog Vial Sliding Scale -] 1 vial SQ ACHS units 09/27 Isosorbide Mononitrate [Imdur -] 30 mg PO DAILY tab.sr.24h 09/27/18 Losartan Potassium [Cozaar -] 25 mg PO HS tablet 09/27/18 Magnesium Oxide [Mag-Ox -] 400 mg PO BID tablet 09/27/18 hydrALAZINE HCL [Apresoline -] 25 mg PO BID tablet 09/27/18 This patient is new to me today: No Emergency Visit: Yes ED Registration Date: 09/11/18 Care time: The patient presented to the Emergency Department on the above date and was hospitalized for further evaluation of their emergent condition. Critical Care patient: No - Discharge Referral Referred to [facility] No
[2018-09-27] MEDS ORDERED: ALBUTEROL SO4 2.5/IPRATROPIUM 0.5 INH SOL 3 ML VIAL.NEB. NEB PRN (14:52)
[2018-09-27] MEDS ORDERED: METOLAZONE 5 MG TABLET PO ONE (15:12)
--- NOTE | 2018-09-27 15:12 | PN ---
Progress Note, Physician History of Present Illness: Pt seen and examined at bedside. He is awake and alert. He denies shortness of breath. - Current Medication List Current Medications: Active Medications Albuterol/Ipratropium (Duoneb -) 1 amp NEB Q4H PRN PRN Reason: SHORTNESS OF BREATH Amoxicillin/Clavulanate Potassium (Augmentin - 500mg Tablet) 1 tab PO BID@0800, 1730 [facility] Last Admin: 09/27/18 09:32 Dose: 1 tab Atorvastatin Calcium (Lipitor -) 40 mg PO [facility] Last Admin: 09/26/18 21:40 Dose: 40 mg Budesonide/Formoterol Fumarate (Symbicort 160/4.5mcg -) 2 puff IH BID [facility] Last Admin: 09/27/18 09:44 Dose: 2 puff Cyanocobalamin (Vitamin B12 -) 1,000 mcg PO DAILY [facility] Last Admin: 09/27/18 09:32 Dose: 1,000 mcg Furosemide (Lasix -) 40 mg PO DAILY [facility] Gabapentin (Neurontin -) 100 mg PO BID [facility] Last Admin: 09/27/18 09:33 Dose: 100 mg Hydralazine HCl (Apresoline -) 25 mg PO BID [facility] Last Admin: 09/27/18 11:33 Dose: Not Given Insulin Aspart (Novolog Vial Sliding Scale -) [address] [facility]; Protocol Last Admin: 09/27/18 12:29 Dose: Not Given Isosorbide Mononitrate (Imdur -) 30 mg PO DAILY [facility] Last Admin: 09/27/18 11:33 Dose: Not Given Levothyroxine Sodium (Synthroid -) 25 mcg PO DAILY@0700 [facility] Last Admin: 09/27/18 06:23 Dose: 25 mcg Losartan Potassium (Cozaar -) 25 mg PO [facility] Last Admin: 09/26/18 21:39 Dose: 25 mg Magnesium Oxide (Mag-Ox -) 400 mg PO BID [facility] Last Admin: 09/27/18 09:32 Dose: 400 mg Metoprolol Succinate (Toprol Xl -) 75 mg PO DAILY [facility] Last Admin: 09/27/18 11:33 Dose: Not Given Multivitamins/Minerals/Vitamin C (Tab-A-Vit -) 1 tab PO DAILY [facility] Last Admin: 09/27/18 09:32 Dose: 1 tab Pantoprazole Sodium (Protonix -) 40 mg PO DAILY [facility] Last Admin: 09/27/18 09:33 Dose: 40 mg Tamsulosin HCl (Flomax -) 0.4 mg PO DAILY@0830 [facility] Last Admin: 09/27/18 09:00 Dose: 0.4 mg - Objective Vital Signs: Vital Signs Temperature 97.9 F 09/27/18 09:29 Pulse Rate 70 09/27/18 11:20 Respiratory Rate 17 09/27/18 11:20 Blood Pressure 103/52 L 09/27/18 11:20 O2 Sat by Pulse Oximetry (%) 96 09/27/18 09:00 Constitutional: Yes: Calm Eyes: Yes: Conjunctiva Clear HENT: Yes: Atraumatic Cardiovascular: Yes: S1, S2 Respiratory: Yes: On Nasal O2 Gastrointestinal: Yes: Soft Genitourinary: Yes: WNL Edema: Yes Edema: RLE: Trace Neurological: Yes: Oriented Psychiatric: Yes: Oriented Labs: CBC, BMP 09/26/18 06:00 09/26/18 06:00 INR, PTT INR 1.16 (0.83-1.09) H 09/14/18 05:30 Fibrinogen 443.0 mg/dL (238-498) 09/22/18 14:20 Problem List - Problems (1) COPD exacerbation Code(s): J44.1 - CHRONIC OBSTRUCTIVE PULMONARY DISEASE W (ACUTE) EXACERBATION (2) Heart failure Code(s): I50.9 - HEART FAILURE, UNSPECIFIED Qualifiers: Heart failure type: combined systolic and diastolic Heart failure chronicity: acute on chronic Qualified Code(s): I50.43 - Acute on chronic combined systolic (congestive) and diastolic (congestive) heart failure (3) Nephrotic range proteinuria Code(s): R80.9 - PROTEINURIA, UNSPECIFIED (4) CKD (chronic kidney disease) Code(s): N18.9 - CHRONIC KIDNEY DISEASE, UNSPECIFIED Qualifiers: Chronic kidney disease stage: stage 3 (moderate) Qualified Code(s): N18.3 - Chronic kidney disease, stage 3 (moderate) Assessment/Plan Current Medications Generic Name Dose Route Start Last Admin Trade Name Freq PRN Reason Stop Dose Admin Albuterol/Ipratropium 1 amp 09/27/18 14:52 Duoneb - NEB Q4H PRN SHORTNESS OF BREATH Amoxicillin/Clavulanate Potassium 1 tab 09/21/18 17:30 09/27/18 09:32 Augmentin - 500mg Tablet PO 1 tab BID@0800,1730 [facility] Administration Atorvastatin Calcium 40 mg 09/16/18 22:00 09/26/18 21:40 Lipitor - PO 40 mg HS [facility] Administration Budesonide/Formoterol Fumarate 2 puff 09/24/18 22:00 09/27/18 09:44 Symbicort 160/4.5mcg - IH 2 puff BID [facility] Administration Cyanocobalamin 1,000 mcg 09/17/18 10:00 09/27/18 09:32 Vitamin B12 - PO 1,000 mcg DAILY [facility] Administration Furosemide 40 mg 09/28/18 10:00 Lasix - PO DAILY [facility] Gabapentin 100 mg 09/17/18 22:00 09/27/18 09:33 Neurontin - PO 100 mg BID [facility] Administration Hydralazine HCl 25 mg 09/22/18 10:25 09/27/18 11:33 Apresoline - PO Not Given BID [facility] Insulin Aspart 1 vial 09/16/18 16:30 09/27/18 12:29 Novolog Vial Sliding Scale - SQ Not Given ACHS [facility] Protocol Isosorbide Mononitrate 30 mg 09/22/18 10:27 09/27/18 11:33 Imdur - PO Not Given DAILY [facility] Levothyroxine Sodium 25 mcg 09/17/18 07:00 09/27/18 06:23 Synthroid - PO 25 mcg DAILY@0700 [facility] Administration Losartan Potassium 25 mg 09/25/18 20:01 09/26/18 21:39 Cozaar - PO 25 mg HS [facility] Administration Magnesium Oxide 400 mg 09/17/18 22:00 09/27/18 09:32 Mag-Ox - PO 400 mg BID [facility] Administration Metoprolol Succinate 75 mg 09/17/18 17:15 09/27/18 11:33 Toprol Xl - PO Not Given DAILY [facility] Multivitamins/Minerals/Vitamin C 1 tab 09/17/18 10:00 09/27/18 09:32 Tab-A-Vit - PO 1 tab DAILY [facility] Administration Pantoprazole Sodium 40 mg 09/17/18 10:00 09/27/18 09:33 Protonix - PO 40 mg DAILY [facility] Administration Tamsulosin HCl 0.4 mg 09/17/18 08:30 01/08/19 09:00 Flomax - PO 0.4 mg DAILY@0830 [facility] Administration Impression 1. CKD 2. anemia 3. history of hyperkalemia 4. HTN 5. DM 6. hypothyroidism 7. HLD 8. copd 9. proteinuria - nephrotic 10. active smoker 11. fluid overload Plan - cont lasix - monitor renal function - renal diet - will need outpt follow up - will give a dose of metolazone - pt tolerating losartan - potassium stable - low potassium diet - will follow Dr Haley
[2018-09-27 18:47] VITALS: BP 100/74; PULSE 75; TEMP 98.2
[2018-09-28] MEDS ORDERED: FUROSEMIDE 40 MG TABLET (FP) PO SCH (10:00)
--- NOTE | 2018-09-30 10:36 | PATH ---
Surgical Pathology Report Patient Name: MARK [facility]. Rec. #: [id number] /Age/Gender: 1950 (Age: 67) / M Account: [id number] Location: [address] [place] [address] Taken: 09/27/2018 Received: 09/27/2018 Reported: 09/30/2018 Physicians: Corazon Vallejo M.D. Specimen(s) Received PERIPHERAL BLOOD 4 GREEN 2 LAVENDER Clinical History Monocytosis, rule out MDS/MPD Final Diagnosis MYELODYSPLASIA FISH PANEL performed and interpreted at [facility] [place], [place] ([id number]) shows the following: INTERPRETATION: No evidence of deletion 5q or monosomy 5 is present. No evidence of deletion 13q14.2 is present. No evidence of rearrangement of 11q23. No evidence of a deletion of the p53 (17p13) locus. No evidence of deletion 20q12 is present MYELOPROLIFERATIVE FISH PANEL No BCR/ABL1 t(9;22) translocation is detected. No evidence of deletion 7q or monosomy 7 is present. No evidence of trisomy 8 (+8) is present. See [facility] report ([id number]) for additional details. Electronically Signed Ximena Bazzi M.D. Addendum Reported: 10/04/2018 Addendum Diagnosis BCR-ABL Gene Rearrangement (IS) Analysis performed and interpreted at [facility] [place], [place] ([id number]) shows the following: RESULTS: Negative BCR/ABL Major breakpoints (b2a2 and b3a2): Not Detected BCR/ABL Minor breakpoint (e1a2): Not Detected INTERPRETATION: No BCR-ABL translocation was detected in this sample. CYTOGENETIC KARYOTYPE ANALYSIS performed and interpreted at [facility] ([id number]) shows the following: RESULTS: Tissue Culture Failure See [facility] reports ([id number] and [id number]) for additional details. Ximena Bazzi M.D. Addendum Reported: 10/06/2018 Addendum Diagnosis MPL MUTATION ANALYSIS performed and interpreted at [facility] [place], [place] ([id number]) shows the following: RESULTS: MPL Mutation: NOT DETECTED INTERPRETATION: Negative for MPL gene mutations. See [facility] report for additional details. Ximena Bazzi M.D. Addendum Reported: 10/11/2018 Addendum Diagnosis JAK2 EXON 12 & 13 MUTATION ANALYSIS [facility] ([id number]) shows the following: RESULTS: JAK2 Exon 12 Mutation: NOT DETECTED JAK2 Exon 13 Mutation: NOT DETECTED INTERPRETATION: Negative for JAK2 (Exon 12 & 13) Mutations. CALRETICULIN (CALR) performed and [facility] [place] ([id number]) shows the following: RESULTS: No mutation was detected in exon 9 of calreticulin gene (CALR) by PCR fragment analysis. INTERPRETATION: CALR MUTATION (exon 9): Not Detected. See [facility] reports ([id number] and [id number]) for additional details. Ximena Bazzi M.D. Gross Description Received are 4 green top tubes and 2 lavender top tubes of blood which are sent to [facility]. DL09/27/2018 saudi09/27/2018
== END 2018-09-27 19:12 | DRG 291 ==
LOC: JER 08:31 → JERBED 12:23 → J4W 09-12 02:21 → J5S 09-16 14:59
PROVIDERS: ATTEND Nurse Practitioner Family
PROC: 30233N1 Transfusion of Nonautologous Red Blood Cells into Peripheral Vein, Percutaneous Approach (ICD-10-PCS; principal; 2018-09-12)
DX: I13.0 Hypertensive heart and chronic kidney disease with heart failure and stage 1 through stage 4 chronic kidney disease, or unspecified chronic kidney disease (principal); I50.43 Acute on chronic combined systolic (congestive) and diastolic (congestive) heart failure; J15.0 Pneumonia due to Klebsiella pneumoniae; J98.11 Atelectasis; J44.1 Chronic obstructive pulmonary disease with (acute) exacerbation; N17.9 Acute kidney failure, unspecified; J96.11 Chronic respiratory failure with hypoxia; R64 Cachexia; N18.3 Chronic kidney disease, stage 3 (moderate); E11.22 Type 2 diabetes mellitus with diabetic chronic kidney disease; I43 Cardiomyopathy in diseases classified elsewhere; D64.9 Anemia, unspecified; E78.5 Hyperlipidemia, unspecified; E03.9 Hypothyroidism, unspecified; N40.0 Benign prostatic hyperplasia without lower urinary tract symptoms; I34.0 Nonrheumatic mitral (valve) insufficiency; I25.119 Atherosclerotic heart disease of native coronary artery with unspecified angina pectoris; E87.70 Fluid overload, unspecified; R91.1 Solitary pulmonary nodule; Z68.21 Body mass index [BMI] 21.0-21.9, adult; D72.819 Decreased white blood cell count, unspecified; F17.210 Nicotine dependence, cigarettes, uncomplicated
CPT/HCPCS: 36415; 36430; 36511; 36600; 71045-TC-FY; 76705-TC; 80048; 80053; 82272; 82375; 82550; 82570; 82746; 82803; 82962; 83010; 83036; 83050; 83605; 83615; 83735; 83880; 83883; 84100; 84156; 84443; 84484; 85025; 85027; 85379; 85384; 85610; 85651; 86850; 86900; 86901; 86922; 87040; 87070; 87186; 87205; 87804; 88300-TC; 93005; 93010; 93306-TC; 93971; 93971-TC; 94640; 99283-25; J1644; P9038; P9058